=== PATIENT | female | born 1985 | race Caucasian/White ===

== ENCOUNTER 2017-06-18 21:12 | Emergency (ER) | payer SELFPAY ==
[~2017-06-18] VITALS: Ht 157.5 cm; Wt 57.6 kg
[~2017-06-18 21:12] MED LIST: CELEXA20 MG PO; NORCO 10MG-325MG1 EA PO
--- OUTSIDE RECORDS SUMMARY | 2017-06-18 21:14 | XMS REPORT ---
Author Author [facility] Address Unknown Phone Unavailable Care Team Providers Care Eyelet Riveter Name Role Phone JENN MCKEON Unavailable Unavailable Problems This patient has no known problems. Allergies, Adverse Reactions, Alerts This patient has no known allergies or adverse reactions. Medications This patient has no known medications. Encounters Start Date/Time End Date/Time Encounter Type Admission Type Attending [facility] Care Department Encounter ID 2017-08-17 00:00:00 2017-08-17 00:00:00 Outpatient [facility] [id number] 2017-07-19 00:00:00 2017-07-19 00:00:00 Outpatient [facility] [id number] 2017-07-19 00:00:00 2017-07-19 00:00:00 Outpatient [facility] [id number] 2017-07-15 00:00:00 2017-07-15 00:00:00 Outpatient [facility] [id number] 2017-07-13 00:00:00 2017-07-13 00:00:00 Outpatient [facility] [id number] 2017-07-13 00:00:00 2017-07-13 00:00:00 Outpatient [facility] [id number] 2017-07-08 00:00:00 2017-07-08 00:00:00 Outpatient [facility] [id number] 2017-07-04 00:00:00 2017-07-04 00:00:00 Outpatient [facility] [id number] 2017-06-24 00:00:00 2017-06-24 00:00:00 Outpatient [facility] [id number] 2017-06-24 00:00:00 2017-06-24 00:00:00 Outpatient [facility] [id number] 2017-06-16 00:00:00 2017-06-16 00:00:00 Outpatient [facility] [id number] 2017-06-15 00:00:00 2017-06-15 00:00:00 Outpatient [facility] [id number] 2017-06-08 00:00:00 2017-06-08 00:00:00 Outpatient [facility] [id number] 2017-06-02 00:00:00 2017-06-02 00:00:00 Outpatient [facility] [id number] 2017-05-25 10:00:29 2017-05-25 10:00:29 Outpatient [facility] [id number] 2017-05-25 00:00:00 2017-05-25 00:00:00 Outpatient [facility] [id number] 2017-05-25 00:00:00 2017-05-25 00:00:00 Outpatient [facility] [id number] 2017-05-24 00:00:00 2017-05-24 00:00:00 Outpatient [facility] [id number] 2017-05-18 00:00:00 2017-05-18 00:00:00 Outpatient [facility] [id number] 2017-05-17 10:58:45 2017-05-17 10:58:45 Outpatient [facility] [id number] 2017-05-17 08:19:46 2017-05-17 08:19:46 Outpatient [facility] [id number] 2017-05-11 00:00:00 2017-05-11 00:00:00 Outpatient [facility] [id number] 2017-05-05 12:11:36 2017-05-05 12:11:36 Outpatient [facility] [id number] 2017-05-05 10:30:09 2017-05-05 10:30:09 Outpatient [facility] [id number] 2017-04-25 09:44:48 2017-04-25 09:44:48 Outpatient [facility] [id number] 2017-04-25 00:00:00 2017-04-25 00:00:00 Outpatient [facility] [id number] 2017-04-22 00:00:00 2017-04-22 00:00:00 Outpatient [facility] [id number] 2017-04-19 09:44:58 2017-04-19 09:44:58 Emergency [facility] [id number] 2017-04-19 07:49:09 2017-04-19 07:49:09 Outpatient [facility] [id number] 2017-04-19 00:00:00 2017-04-19 00:00:00 Outpatient [facility] [id number] 2017-04-18 15:00:50 2017-04-18 15:00:50 Outpatient [facility] [id number] 2017-04-18 00:00:00 2017-04-18 00:00:00 Outpatient [facility] [id number] 2017-04-15 15:48:30 2017-04-15 15:48:30 Outpatient [facility] [id number] 2017-04-14 09:40:58 2017-04-14 09:40:58 Outpatient [facility] [id number] 2017-04-06 00:00:00 2017-04-06 00:00:00 Outpatient [facility] [id number] 2017-03-25 09:34:34 2017-03-25 09:34:34 Outpatient [facility] [id number] 2017-03-21 19:50:55 2017-03-21 19:50:55 Emergency [facility] [id number] 2017-03-21 19:31:52 2017-03-21 19:31:52 Emergency [facility] [id number] 2017-03-21 17:41:44 2017-03-21 17:41:44 Emergency [facility] [id number] 2017-03-09 09:29:04 2017-03-09 09:29:04 Outpatient [facility] [id number] 2017-03-03 09:41:43 2017-03-03 09:41:43 Emergency [facility] [id number] 2017-03-03 08:41:00 2017-03-03 08:41:00 Emergency [facility] [facility] [id number] 2017-02-14 10:56:29 2017-02-14 10:56:29 Outpatient [facility] [id number] 2017-02-03 15:46:29 2017-02-03 15:46:29 Outpatient [facility] [id number] 2017-02-03 14:28:55 2017-02-03 14:28:55 Outpatient [facility] [id number] 2017-02-01 00:00:00 2017-02-01 00:00:00 Outpatient [facility] [id number] 2017-01-31 00:00:00 2017-01-31 00:00:00 Outpatient [facility] [id number] 2017-01-20 08:35:05 2017-01-20 08:35:05 Outpatient [facility] [id number] 2016-12-31 10:40:05 2016-12-31 10:40:05 Outpatient [facility] [id number] 2016-12-27 10:22:29 2016-12-27 10:22:29 Outpatient [facility] [id number] 2016-12-27 00:00:00 2016-12-27 00:00:00 Outpatient [facility] [id number] 2016-12-13 00:00:00 2016-12-13 00:00:00 Outpatient [facility] [id number] 2016-12-06 11:56:04 2016-12-06 11:56:04 Outpatient [facility] [id number] 2016-12-06 11:39:08 2016-12-06 11:39:08 Outpatient [facility] [id number] 2016-11-25 00:00:00 2016-11-25 00:00:00 Outpatient [facility] [id number] 2016-11-22 13:03:39 2016-11-22 13:03:39 Outpatient [facility] [id number] 2016-11-17 13:51:48 2016-11-17 13:51:48 Outpatient [facility] [id number] 2016-11-17 13:01:42 2016-11-17 13:01:42 Outpatient [facility] [id number] 2016-11-16 08:03:59 2016-11-16 08:03:59 Outpatient [facility] [id number] 2016-11-15 10:20:10 2016-11-15 10:20:10 Outpatient [facility] [id number] 2016-11-03 00:00:00 2016-11-03 00:00:00 Outpatient [facility] [id number] 2016-11-02 18:55:37 2016-11-02 18:55:37 Emergency [facility] [id number] 2016-09-17 19:08:40 2016-09-17 19:08:40 Outpatient [facility] [id number] 2016-09-16 10:39:26 2016-09-16 10:39:26 Outpatient [facility] [id number] 2016-09-08 00:00:00 2016-09-08 00:00:00 Outpatient [facility] [id number] 2016-08-31 00:00:00 2016-08-31 00:00:00 Outpatient [facility] [id number] 2016-08-20 00:00:00 2016-08-20 00:00:00 Outpatient [facility] [id number] 2016-08-13 10:55:00 2016-08-13 10:55:00 Outpatient [facility] [id number] 2016-08-13 09:07:42 2016-08-13 09:07:42 Outpatient [facility] [id number] 2016-07-29 12:16:51 2016-07-29 12:16:51 Outpatient [facility] [id number] 2016-07-29 11:08:31 2016-07-29 11:08:31 Outpatient [facility] [id number] 2016-07-29 00:00:00 2016-07-29 00:00:00 Outpatient [facility] [id number] 2016-07-29 00:00:00 2016-07-29 00:00:00 Outpatient [facility] [id number] 2016-07-22 12:52:01 2016-07-22 12:52:01 Outpatient [facility] [id number] Results Test Description Test Time Test Comments Text Results Atomic Results Result Comments CT BRAIN WO [place] [address] Patient Name: MANDY MAYEN MR #: [id number] : 1985 Age/Sex: 31/F Req #: [id number] Adm Physician: Ordered by: JENN MCKEON MD Report #: [id number] Location: ER Room/Bed: Procedure: [id number] CT/CT BRAIN WO Exam Date: Exam Time: REPORT STATUS : Signed Examination: CT BRAIN WITHOUT CONTRAST History:Seizures. Comparison studies:None Technique: Axial images were obtained from the skull base to the vertex. Coronal and sagittal images reconstructed from the axial data. Intravenous contrast: None Findings: Scalp: No abnormalities. Bones: No fractures, blastic or lytic lesions. Brain sulci : Appropriate for age. Ventricles: Normal in size and configuration. No hydrocephalus. Extra-axial space: No abnormalities. Parenchyma: No abnormal densities. No masses, hemorrhage, acute or chronic vascular insults. Sellar/suprasellar region: No abnormalities. Craniocervical junction: Patent foramen magnum. No Chiari one malformation. Incidental findings: None. Impression: No intracranial abnormalities. Signed by: Dr. Linsey Jane M.D. on 01/10/2017 11:08 PM Dictated By: LINSEY MCNEILL MD 07 Transcribed By: AGNIESZKA on 01/10/172307 COPY TO: JENN MCKEON MD CHEST SINGLE (PORTABLE) [place] [address] Patient Name: MANDY MAYEN MR #: [id number] : 1985 Age/Sex: 31/F Req #: [id number] Adm Physician: Ordered by: JENN MCKEON MD Report #: [id number] Location: ER Room/Bed: Procedure: [id number] DX/CHEST SINGLE (PORTABLE) Exam Date: Exam Time: REPORT STATUS: Signed EXAMINATION: CHEST SINGLE ( PORTABLE) INDICATION: Seizures COMPARISON: None FINDINGS: TUBES and LINES: None. LUNGS: Lungs are not well inflated. Lungs are clear. There is no evidence of pneumonia or pulmonary edema. PLEURA: No pleural effusion or pneumothorax. HEART AND MEDIASTINUM: The cardiomediastinal silhouette is unremarkable. BONES AND SOFT TISSUES: No acute osseous lesion. Soft tissues are unremarkable. UPPER ABDOMEN: No free air under the diaphragm. IMPRESSION: No acute thoracic abnormality. Signed by: Dr. Martir Tolentino M.D. on 2016 11:30 PM Dictated By: MARTIR JOHNSON MD 29 Transcribed By: AGNIESZKA on 01/10/172329 COPY TO: JENN MCKEON MD
[2017-06-18 21:46] LABS: BASOPHILS % 0.5 % (0.0-1.0); EOSINOPHILS # (AUTO) 0.2 (0.0-0.4); EOSINOPHILS % 2.6 % (0.0-6.0); HEMATOCRIT 38.7 % (34.2-44.1); HEMOGLOBIN 12.9 g/dL (12.0-16.0); LYMPHOCYTES # (AUTO) 2.8 (1.0-3.2); MEAN CORPUSCULAR HEMOGLOBIN 30.8 pg (28-32); MEAN CORPUSCULAR HGB CONC 33.3 g/dL (31-35); MEAN CORPUSCULAR VOLUME 92.4 fL (81-99); MONOCYTES # (AUTO) 0.3 (0.2-0.8); MONOCYTES % 4.4 % (4.4-11.3); NEUTROPHILS % 54.4 % (38.7-80.0); PLATELET COUNT 304 x10e3/uL (140-360); RED BLOOD COUNT 4.19 x10e6/uL (3.6-5.1)
[2017-06-18] MEDS ORDERED: IBUPROFEN 600 MG TAB PO STA (22:03)
[2017-06-18 22:10] LABS: ALANINE AMINOTRANSFERASE 27 IU/L (0-55); ALBUMIN 4.1 g/dL (3.5-5.0); ALKALINE PHOSPHATASE 91 IU/L (40-150); ANION GAP 15.8 mmol/L (8-16); BLOOD UREA NITROGEN 6 mg/dL (7-26); BUN/CREATININE RATIO 8 (6-25); CALCIUM 9.2 mg/dL (8.4-10.2); CARBON DIOXIDE 22 mmol/L (22-29); CHLORIDE 109 mmol/L (98-107); CREATINE KINASE 119 IU/L (29-168); CREATININE, SERUM 0.72 mg/dL (0.57-1.11); EST GLOMERULAR FILTRATION RATE > 60 ML/MIN (60-); GLUCOSE 84 mg/dL (74-118); POTASSIUM 3.8 mmol/L (3.5-5.1); SODIUM 143 mmol/L (136-145)
--- NOTE | 2017-06-18 22:16 | Diagnostic Imaging Report ---
EXAM: CHEST SINGLE (PORTABLE), AP 1 view INDICATION: Status post seizure COMPARISON: AP view of the chest January 10, 2017 FINDINGS: LINES/TUBES: None LUNGS: No consolidations or edema. PLEURA: No effusions or pneumothorax. HEART AND MEDIASTINUM: Normal size and contour. BONES AND SOFT TISSUES: No acute findings. IMPRESSION: No acute thoracic abnormality. Signed by: Dr. Perlita Yun M.D. on 06/18/2017 10:12 PM
[2017-06-18 23:31] VITALS: BP 110/64
== END 2017-06-18 23:36 | disposition home or self-care (01) ==
LOC: ER 21:12
DX: G40.309 Generalized idiopathic epilepsy and epileptic syndromes, not intractable, without status epilepticus (principal); F10.120 Alcohol abuse with intoxication, uncomplicated
CPT/HCPCS: 36415; 71045; 80053; 80320; 82550; 82553; 84484; 85025; 93005; 99283

== ENCOUNTER 2019-10-27 09:21 | Emergency (ER) | payer SELFPAY ==
[~2019-10-27] VITALS: Ht 157.5 cm; Wt 57.6 kg
[2019-10-27] MEDS ORDERED: SODIUM CHLORIDE 0.9% 1000ML 1,000 ML IV STA (09:23)
[2019-10-27] MEDS ORDERED: BACTRIM DS TAB1 EACH PO (09:34)
[2019-10-27] MEDS ORDERED: PREDNISONE10 MG PO (09:34)
[2019-10-27] MEDS ORDERED: PROMETHAZINE HC25 M1 PO (09:34)
[2019-10-27] MEDS ORDERED: PROZAC20 MG PO (09:34)
[2019-10-27] MEDS ORDERED: LIBRAX CAPSULE1 EACH PO (09:34)
[2019-10-27] MEDS ORDERED: GABAPENTIN300 MG PO (09:34)
[2019-10-27] MEDS ORDERED: TRAZODONE HCL50 MG PO (09:34)
[2019-10-27] MEDS ORDERED: LAMICTAL100 MG PO (09:34)
--- OUTSIDE RECORDS SUMMARY | 2019-10-27 09:37 | XMS REPORT | Clinical Summary ---
Author Author [facility] ict Organization [facility] ict Address Unknown Phone Unavailable Care Team Providers Care Media Clerk Name Role Phone Rahul Yang MD PCP Allergies Comments Active Allergy Reactions Severity Noted Date Penicillin Rash 10/26/2015 Medications End Date Status Medication Sig Dispensed Refills Start Date Active thiamine, B-1, 50 mg Take 2 240 tablet 1 04/18 tabletIndications: tablets by 8 Alcohol abuse mouth daily. Active pyridoxine, vitamin B6, Take 1 tablet 180 tablet 1 50 mg tabletIndications: by mouth 2 8 Alcohol abuse times daily. Active folic acid (FOLVITE) 1 mg Take 1 tablet 90 tablet 1 tabletIndications: by mouth 8 Alcohol abuse daily. Active Take by 90 tablet 3 Ggiwzqmy-Wz-Bvd-Fe-FA mouth. 9 () TabIndications: Seizure disorder during in first trimester Active lamoTRIgine (LAMICTAL) Take 1 tablet 180 tablet 3 0 100 mg tabletIndications: by mouth 2 9 Seizures times daily. Active folic acid (FOLVITE) 1 mg Take 1 tablet 90 tablet 3 tabletIndications: by mouth 9 Seizures daily. Active topiramate (TOPAMAX) 25 Take 1 tablet 12 tablet 0 mg tabletIndications: by mouth at 9 Depressive disorder, bedtime Alcohol use disorder, nightly. severe, dependence Active gabapentin (NEURONTIN) Take 1 tablet 90 tablet 2 1 600 mg tabletIndications: by mouth 3 9 Anxiety times daily. Active chlordiazePOXIDE Take 1-2 30 capsule 0 (LIBRIUM) 25 mg tablets every 0 capsuleIndications: 4-6hrs for Alcohol use disorder, symptoms of severe, dependence withdrawal including anxiety, sweating, tremors, restlessness, nausea/vomiti ng. 02/26/2019 Discontinued (Reorder) gabapentin (NEURONTIN) Take 1 tablet 90 tablet 2 0 600 mg tabletIndications: by mouth 3 8 Alcohol use disorder times daily. 02/26/2019 Discontinued (Reorder) hydrOXYzine (ATARAX) 25 Take 1 tablet 60 tablet 2 mg tabletIndications: by mouth 8 Anxiety every 6 hours as needed for Anxiety. 03/28/2019 hydrOXYzine (ATARAX) 25 Take 1 tablet 60 tablet 0 mg tabletIndications: by mouth 9 Anxiety every 6 hours as needed for Anxiety. 09/06/2019 Discontinued (Reorder) chlordiazePOXIDE Take 1-2 30 capsule 0 (LIBRIUM) 25 mg tablets every 0 capsuleIndications: 4-6hrs for Alcohol use disorder, symptoms of severe, dependence withdrawal including anxiety, sweating, tremors, restlessness, nausea/vomiti ng. Active Problems Problem Noted Date Abnormal uterine bleeding (AUB) 03/09/2018 Overview: 03/09/2018 Homelessness 11/28/2017 Seizure 03/09/2017 Opioid use disorder, moderate, in sustained remission 08/16/2016 Tobacco use disorder 08/07/2014 Anxiety disorder 04/23/2014 Alcohol use disorder, severe, dependenc e Alcohol abuse Suicidal ideation Alcoholic intoxication without complica tion Depressive disorder Substance or medication-induced depress jaime disorder Encounters Care Team Description Date Type Specialty Jovan Martins MD Nasal pain (Primary Dx); Dyspnea, unspecified type; Seizure; Suicidal ideation; Alcohol use disorder, severe, dependence 09/05/2019 Emergency Emergency Medicine - 09/06/2019 Joseph Caldera III, MD Medications 02/26/2019 Refill Family Practice after 10/26/2018 Immunizations Name Administration Dates Next Due Influenza Vaccine, 02/03/2017 Seasonal, Injectable Influenza, 12/12/2017 (Deferred: Patie nt Refused) Vaccine<FLUCELVAX>(Multi- Dose) Tdap Tetanus, diphtheria, 02/03/2017 acellular pertussis Vaccine Family History Medical History Relation Name Comments Arthritis Father Heart Father Hypertension Father Seizures Father Arthritis Maternal Grandfather Arthritis Maternal Grandmother Diabetes Maternal Grandmother Glaucoma Maternal Grandmother Arthritis Mother Asthma Mother Diabetes Mother Heart Mother Hypertension Mother Psychiatry Mother Stroke Paternal Aunt Arthritis Paternal Grandfather Arthritis Paternal Grandmother Psychiatry Paternal Grandmother Asthma Sister Psychiatry Sister Relation Name Status Comments Father Alive Maternal Grandfather Maternal Grandmother Glaucoma according to pt Mother Alive Paternal Aunt Paternal Grandfather Paternal Grandmother Sister Sister Social History Date Tobacco Use Types Packs/Day Years Used Current Every Day Smoker Cigarettes 0.25 Smokeless Tobacco: Never Used Tobacco Cessation: Ready to Quit: No; Co unseling Given: Yes Comments: patient states that she is cutting down now that she is Drinks/Week oz/Week Comments Alcohol Use 0 Standard drinks or equivalent 0.0 About 2 pints of VODKA a day. Not Currently Food Insecurity Answer Date Recorded Within the past 12 months, you worried that your Never kayley e 05/31/2018 food would run out before you got money to buy more. Within the past 12 months, the food you bought Never true 05/31/2018 just didn't last and you didn't have mo juan to get more. Sex Assigned at Date Recorded Not on file Industry Job Start Date Occupation Not on file Not on file Not on file Travel End Travel History Travel Start No recent travel history available. Last Filed Vital Signs Reading Time Taken Comments Vital Sign 137/96 09/06/2019 8:48 PM CDT Blood Pressure 87 09/06/2019 8:48 PM CDT Pulse 37.3 C (99.1 F) 09/06/2019 8:48 PM CDT Temperature 16 09/06/2019 8:48 PM CDT Respiratory Rate 96% 09/06/2019 8:48 PM CDT Oxygen Saturation - - Inhaled Oxygen Concentration - - Weight - - Height - - Body Mass Index Plan of Treatment Health Maintenance Due Date Last Done Comments Cervical Cancer Scrn (3 07/17/2019 07/16/2016, Yrs) 05/16/2015 Goals Goal Patient Associated Recent Progress Patient-Stat Aut hor Goal Type Problems ed? Eat Healthy Lifestyle No Anayeli Almanza Quit drinking alcohol Lifestyle No Elaina Sanchez NP Quit smoking / using tobacco Lifestyle Elaina Walker NP Get back to normal activities Lifestyle No Daniel, (work or school) Elaina Callejas NP Medication Adherence Self No Daniel management Elaina Callejas NP Procedures Comments Procedure Name Priority Date/Time Associated Diag nosis GLUCOSE POC Routine 09/06/2019 5:16 PM CDT XRAY CHEST 1 VIEW STAT 09/06/2019 Dyspnea, uns pecified type 2:35 PM CDT CORONAVIRUS, COVID-19, STAT 09/06/2019 GIULIANA 8:26 AM CDT IP CONSULT WITH INSIGHT Routine 09/06/2019 5:32 AM CDT CONSULT CLINICAL CASE STAT 09/06/2019 MANAGEMENT (RN/SW) 5:32 AM CDT BMP POC Routine 09/06/2019 1:51 AM CDT BMP POC Routine 09/06/2019 1:[address] MAXILLOFACIAL W/O STAT 09/06/2019 Nasal mary n CONTRAST 1:[address] HEAD W/O CONTRAST STAT 09/06/2019 Seizure 1:06 AM CDT CBC STAT 09/05/2019 11:53 PM CDT LAMOTRIGINE-LAMICTAL STAT 09/05/2019 11:53 PM CDT SALICYLATE STAT 09/05/2019 11:53 PM CDT ACETAMINOPHEN STAT 09/05/2019 11:53 PM CDT ALCOHOL, MEDICAL USE ONLY STAT 09/05/2019 11:53 PM CDT LIPASE STAT 09/05/2019 11:53 PM CDT COMPREHENSIVE METABOLIC STAT 09/05/2019 PANEL 11:53 PM CDT CBC/DIFF STAT 09/05/2019 11:53 PM CDT URINE DRUG SCREEN STAT 09/05/2019 11:43 PM CDT TEST STAT 09/05/2019 11:43 PM CDT after 10/26/2018 Results * POCT GLUCOSE POC docked device (09/06/2019 5:16 PM CDT) Glucose POC 73 (L) 74 - 106 mg/dL [facility] Specimen Blood Performing Organization Address City/[facility] Ph one Number [facility] [address] [place] [address] * XRAY CHEST 1 VIEW (09/06/2019 2:35 PM CDT) Specimen Impressions Performed At IMPRESSION: SMS No acute thoracic abnormality. If the report is "FINALIZED" it indicat es that the attending/staff radiologist has reviewed the images and agrees with the resident's interpretation. Dictated By: Tyler Lyles MD, 09/06/2019 3:1 9 PM I have reviewed the study and agree wit h the findings in this report. Signed By: Camilla Johansen MD, 09/06/2019 3:33 PM Narrative Performed At EXAMINATION: XRAY CHEST 1 VIEW, AP SMS INDICATION: dyspnea COMPARISON: Chest radiograph on 09/30/19 19. FINDINGS: Single AP view with portable technique limits evaluation. TUBES/LINES: None. LUNGS: No consolidations or edema. PLEURA: No effusions or pneumothorax. HEART/MEDIASTINUM: Normal for technique . MUSCULOSKELETAL: No acute findings. UPPER ABDOMEN: Normal. Procedure Note Interface, Rad/Mammog In - 09/06/2019 3:38 PM CDT EXAMINATION: XRAY CHEST 1 VIEW, AP INDICATION: dyspnea COMPARISON: Chest radiograph on 09/29/2018. FINDINGS: Single AP view with portable technique limits evaluation. TUBES/LINES: None. LUNGS: No consolidations or edema. PLEURA: No effusions or pneumothorax. HEART/MEDIASTINUM: Normal for technique. MUSCULOSKELETAL: No acute findings. UPPER ABDOMEN: Normal. IMPRESSION IMPRESSION: No acute thoracic abnormality. If the report is "FINALIZED" it indicates that the attending/staff radiologist has reviewed the images and agrees with the resident's interpretation. Dictated By: Tyler Lyles MD, 09/06/2019 3:19 PM I have reviewed the study and agree with the findings in this report. Signed By: Camilla Johansen MD, 09/06/2019 3:33 PM Performing Organization Address City/[facility] Ph one Number SMS * Coronavirus, CoVID-19, GIULIANA (09/06/2019 8:26 AM CDT) COVID-19 Not DetectedComment: Not Detected [facility] (SARS-COV-2) INTERPRETATION: No detectable LABORAT ORY levels of SARS-CoV-2 Coronavirus (COVID-19) were present in this patient's sample by this test. A not detected result does not exclude the possibility of active infection with this virus due to other factors that may affect the results such as a poorly collected sample, viral titers below the limit of detection of the assay, and the infrequent possibility of inhibitors in the sample. This result should be interpreted in conjunction with clinical, radiographic, and other laboratory findings and should not be used as the sole indicator of active infection with SARS-CoV-2 Coronavirus (COVID-19). Specimen Other (Specify in Comments) - Nasopharynx Narrative Performed At COMMENT: This [employer] Xpert Xpress SARS -CoV-2 real-time PCR test was developed, [facility] and its performance characteristics det ermined by the [facility] molecular diagnostic Laboratory and is acceptable for patient testing. It has been approved for patient testing by [facility] under the Emergency Use Authorization pathway. This laboratory is certified under federal CLIA regulations to perform this type of hig h complexity testing. Performing Organization Address [facility] one Number [facility] [address] [place] [address] * POCT BMP POC docked device (09/06/2019 1:51 AM CDT) Only the most recent of 2 results within the time period is included. Pathologist [facility] Sodium POC 144 136 - 145 mmol/L [facility] Potassium POC 3.5 3.5 - 5.1 mmol/L [facility] Chloride POC 106 98 - 107 mmol/L [facility] TCO2 POC 27Comment: --- 21 - 32 mmol/L [facility] Urea Nitrogen <3 (L) 7 - 18 mg/dL [facility] Glucose POC 91 74 - 106 mg/dL [facility] Hemoglobin POC 14.3 12 - 16 g/dL [facility] Hematocrit POC 42.0 37.0 - 47.0 % [facility] Specimen Blood, venous Performing Organization Address [facility] Ph one Number [facility] [address] [place] [address] LABORATORY * CT MAXILLOFACIAL W/O CONTRAST (09/06/2019 1:06 AM CDT) Specimen Impressions Performed At IMPRESSION: [facility] Head CT: No intracranial abnormalities. Maxillofacial CT: 1. Age indeterminate, minimally displ aced right maxillary frontal process fracture. 2. Otherwise, no acute osseous abnorm alities. Dictated By: Shraddha Dunn MD, 09/06/19 1:34 AM I have reviewed the study and agree wit h the findings in this report. Signed By: Orlando Jane MD, 09/06/2019 1:51 AM Narrative Performed At Exams: Head and Maxillofacial CTs without contrast S MS History: Facial trauma, fx suspected Na andrew pain (accession [id number]), Seizure (accession [id number]) Comparison studies: Maxillofacial CTs dated 01/01/2018 and 05/05/[address] 09/24/2017 Technique: Axial scans were obtained though the he ad and face. Coronal and sagittal reconstructions ob tained from the axial data. Dose modulation, iterative reconstructi on, and/or weight based adjustment of the mA/kV was utilized to reduce the radiation dose to as low as reasonably achievable. IV Contrast: None Complications: None Radiation Dose: Total DLP: 1662 mGy*cm FINDINGS: Head CT: Scalp/Skull: No abnormalities. Brain sulci: Appropriate for patient's age. Ventricles: Normal in size and configur ation. No hydrocephalus. Extra-axial: No masses or fluid collections. Parenchyma: No abnormal densities. No masses, acute hemorrhage, acute or c hronic cortical insults. Dural sinuses: No abnormal densities. Sellar/Suprasellar region: Intact. Skull base and craniocervical junction: Intact. Facial CT: Soft tissues: No abnormalities. Bones: Minimally displaced right maxillary fro ntal process fracture is age indeterminate. Otherwise, no acute fracture or destruc tive osseous lesion is seen. Orbits: No abnormalities. Paranasal sinuses: Minimal bilateral maxillary sinus and o lfactory/sphenoethmoidal recess mucosal thickening. Incidental findings: Multiple scattered dental caries and mi ssing teeth. The right parotid gland is atrophic. Procedure Note Interface, Rad/Mammog In - 09/06/2019 1:56 AM CDT Exams: Head and Maxillofacial CTs without contrast History: Facial trauma, fx suspected Nasal pain (accession [id number]), Seizure (accession [id number]) Comparison studies: Maxillofacial CTs dated 01/01/2018 and 05/05/[address] 09/24/2017 Technique: Axial scans were obtained though the head and face. Coronal and sagittal reconstructions obtained from the axial data. Dose modulation, iterative reconstruction, and/or weight based adjustment of the mA/kV was utilized to reduce the radiation dose to as low as reasonably achievable. IV Contrast: None Complications: None Radiation Dose: Total DLP: 1662 mGy*cm FINDINGS: Head CT: Scalp/Skull: No abnormalities. Brain sulci: Appropriate for patient's age. Ventricles: Normal in size and configuration. No hydrocephalus. Extra-axial: No masses or fluid collections. Parenchyma: No abnormal densities. No masses, acute hemorrhage, acute or chronic cortical insults. Dural sinuses: No abnormal densities. Sellar/Suprasellar region: Intact. Skull base and craniocervical junction: Intact. Facial CT: Soft tissues: No abnormalities. Bones: Minimally displaced right maxillary frontal process fracture is age indeterminate. Otherwise, no acute fracture or destructive osseous lesion is seen. Orbits: No abnormalities. Paranasal sinuses: Minimal bilateral maxillary sinus and olfactory/sphenoethmoidal recess mucosal thickening. Incidental findings: Multiple scattered dental caries and missing teeth. The right parotid gland is atrophic. IMPRESSION IMPRESSION: Head CT: No intracranial abnormalities. Maxillofacial CT: 1. Age indeterminate, minimally displac ed right maxillary frontal process fracture. 2. Otherwise, no acute osseous abnormal ities. Dictated By: Shraddha Dunn MD, 09/06/2019 1:34 AM I have reviewed the study and agree with the findings in this report. Signed By: Orlando Jane MD, 09/06/2019 1:51 AM Performing Organization Address City/State/Zipcode Ph one Number SMS * CT HEAD W/O CONTRAST (09/06/2019 1:06 AM CDT) Specimen Impressions Performed At IMPRESSION: [facility] Head CT: No intracranial abnormalities. Maxillofacial CT: 1. Age indeterminate, minimally displ aced right maxillary frontal process fracture. 2. Otherwise, no acute osseous abnorm alities. Dictated By: Shraddha Dunn MD, 09/06/19 1:34 AM I have reviewed the study and agree wit h the findings in this report. Signed By: Orlando Jane MD, 09/06/2019 1:51 AM Narrative Performed At Exams: Head and Maxillofacial CTs without contrast S MS History: Facial trauma, fx suspected Na andrew pain (accession [id number]), Seizure (accession [id number]) Comparison studies: Maxillofacial CTs dated 01/01/2018 and 05/05/[address] 09/24/2017 Technique: Axial scans were obtained though the he ad and face. Coronal and sagittal reconstructions ob tained from the axial data. Dose modulation, iterative reconstructi on, and/or weight based adjustment of the mA/kV was utilized to reduce the radiation dose to as low as reasonably achievable. IV Contrast: None Complications: None Radiation Dose: Total DLP: 1662 mGy*cm FINDINGS: Head CT: Scalp/Skull: No abnormalities. Brain sulci: Appropriate for patient's age. Ventricles: Normal in size and configur ation. No hydrocephalus. Extra-axial: No masses or fluid collections. Parenchyma: No abnormal densities. No masses, acute hemorrhage, acute or c hronic cortical insults. Dural sinuses: No abnormal densities. Sellar/Suprasellar region: Intact. Skull base and craniocervical junction: Intact. Facial CT: Soft tissues: No abnormalities. Bones: Minimally displaced right maxillary fro ntal process fracture is age indeterminate. Otherwise, no acute fracture or destruc tive osseous lesion is seen. Orbits: No abnormalities. Paranasal sinuses: Minimal bilateral maxillary sinus and o lfactory/sphenoethmoidal recess mucosal thickening. Incidental findings: Multiple scattered dental caries and mi ssing teeth. The right parotid gland is atrophic. Procedure Note Interface, Rad/Mammog In - 09/06/2019 1:56 AM CDT Exams: Head and Maxillofacial CTs without contrast History: Facial trauma, fx suspected Nasal pain (accession [id number]), Seizure (accession [id number]) Comparison studies: Maxillofacial CTs dated 01/01/2018 and 05/05/[address] 09/24/2017 Technique: Axial scans were obtained though the head and face. Coronal and sagittal reconstructions obtained from the axial data. Dose modulation, iterative reconstruction, and/or weight based adjustment of the mA/kV was utilized to reduce the radiation dose to as low as reasonably achievable. IV Contrast: None Complications: None Radiation Dose: Total DLP: 1662 mGy*cm FINDINGS: Head CT: Scalp/Skull: No abnormalities. Brain sulci: Appropriate for patient's age. Ventricles: Normal in size and configuration. No hydrocephalus. Extra-axial: No masses or fluid collections. Parenchyma: No abnormal densities. No masses, acute hemorrhage, acute or chronic cortical insults. Dural sinuses: No abnormal densities. Sellar/Suprasellar region: Intact. Skull base and craniocervical junction: Intact. Facial CT: Soft tissues: No abnormalities. Bones: Minimally displaced right maxillary frontal process fracture is age indeterminate. Otherwise, no acute fracture or destructive osseous lesion is seen. Orbits: No abnormalities. Paranasal sinuses: Minimal bilateral maxillary sinus and olfactory/sphenoethmoidal recess mucosal thickening. Incidental findings: Multiple scattered dental caries and missing teeth. The right parotid gland is atrophic. IMPRESSION IMPRESSION: Head CT: No intracranial abnormalities. Maxillofacial CT: 1. Age indeterminate, minimally displac ed right maxillary frontal process fracture. 2. Otherwise, no acute osseous abnormal ities. Dictated By: Shraddha Dunn MD, 09/06/2019 1:34 AM I have reviewed the study and agree with the findings in this report. Signed By: Orlando Jane MD, 09/06/2019 1:51 AM Performing Organization Address City/State/Zipcode Ph one Number SMS * CBC/Diff (09/05/2019 11:53 PM CDT) WBC 5.7 4.5 - 11.0 K/uL [facility] RBC 4.60 4.20 - 5.40 M/uL [facility] Hemoglobin 14.4 12.0 - 16.0 g/dL [facility] Hematocrit 43.9 37.0 - 47.0 % [facility] MCV 95.4 (H) 82.0 - 92.0 fL [facility] MCH 31.3 27.0 - 32.0 pg [facility] MCHC 32.8 32.0 - 36.0 g/dL [facility] RDW 50.2 (H) 36.4 - 46.3 fL [facility] Platelet 287 150 - 400 K/uL [facility] Mean Platelet 9.2 (L) 9.4 - 12.4 fL [facility] Volume [facility] Percent NRBC 0.0 % [facility] Neutrophil 42.5 34.0 - 70.0 % [facility] Lymphs 48.5 20.0 - 50.0 % [facility] Monocytes 6.0 5.0 - 12.0 % [facility] Eos 1.4 0.7 - 5.0 % [facility] Basos 1.2 0.1 - 1.2 % [facility] Immature 0.4 0.0 - 0.5 % [facility] Granulocytes [facility] Neutrophils 2.43 1.56 - 6.13 K/uL [facility] (Absolute) [facility] Lymphs 2.77 1.18 - 3.74 K/uL [facility] (Absolute) [facility] Monocytes(Absol 0.34 0.24 - 0.36 K/uL [facility] [place] Eos (Absolute) 0.08 0.04 - 0.36 K/uL [facility] Baso (Absolute) 0.07 0.01 - 0.08 K/uL [facility] Immature Grans 0.02 0.00 - 0.03 K/uL [facility] (Abs) [facility] Absolute NRBC 0.00 K/uL [facility] Specimen Blood Performing Organization Address [facility] one [facility] [address] [place] [address] * Comprehensive Metab Pnl(Excludes DBIL) (09/05/2019 11:53 PM CDT) Sodium 141 136 - 145 mmol/L [facility] Potassium 5.5 (H) 3.5 - 5.1 mmol/L [facility] Chloride 106 98 - 107 mmol/L [facility] CO2 25 21 - 31 mmol/L [facility] Glucose 88 70 - 110 mg/dL [facility] Calcium 8.3 (L) 8.6 - 10.3 mg/dL [facility] Urea Nitrogen 5.0 (L) 7.0 - 25.0 mg/dL [facility] Creatinine 0.5 (L) 0.6 - 1.2 mg/dL [facility] Alkaline 112 (H) 34 - 104 U/L [facility] Phosphatase [facility] ALT 19 7 - 52 U/L [facility] AST 43 (H) 13 - 39 U/L [facility] Bilirubin, 0.3 0.2 - 1.2 mg/dL [facility] Total [facility] Total Protein 7.5 6.0 - 8.3 g/dL [facility] GFR, Estimated >90 >=90 mL/min/1.73 m2 [facility] Albumin 4.6 3.7 - 5.3 g/dL [facility] Anion Gap 10 5 - 16 mmol/L [facility] Specimen Blood Performing Organization Address [facility] one Number [facility] [address] [place] [address] * Lamotrigine (Lamictal), Serum (09/05/2019 11:53 PM CDT) Lamotrigine, 4.4 2.0 - 20.0 ug/mL [facility] Serum Comment: This test was developed and its performance characteristics determined by [facility]. It has not been cleared or approved by the Food and Drug Administration. Detection Limit = 1.0 Specimen Blood Narrative Performed At Performed at: [facility] [address] [place] [id number] Respiratory Scientist: Abner Osullivan MD, Phone : [phone] Performing Organization Address [facility] one Number [facility] [address] [place] [address] * Salicylate (09/05/2019 11:53 PM CDT) Salicylate <2.5 (L) 2.8 - 30 mg/dL [facility] Specimen Blood Performing Organization Address [facility] one Number [facility] [address] [place] [address] * Lipase (09/05/2019 11:53 PM CDT) Lipase 40 11 - 82 U/L [facility] Specimen Blood Performing Organization Address [facility] one Number [facility] [address] [place] [address] * Alcohol (09/05/2019 11:53 PM CDT) ALCOHOL, SERUM 0.35 (HH) <0.10 g/dL [facility] - RESULT ([facility]) [facility] Specimen Blood Performing Organization Address [facility] one Number [facility] [address] [facility] [place] [address] [phone] * Acetaminophen (09/05/2019 11:53 PM CDT) Acetaminophen <10.00 (L) 10.00 - 30.00 ug/mL [facility] Comment: [facility]ORY Please refer to acetaminophen nomogram. Specimen Blood Performing Organization Address [facility] [place] [facility] [address] [place] [address] * Urine Drug Screen (09/05/2019 11:43 PM CDT) Opiate, Ur Negative Negative [facility]: [facility] Calibrated Standard: Morphine Positive if urine level > or = 300 ng/dL Amphetamine Negative Negative [facility]: [facility] Calibrated Standard: D-Methamphetamine Positive if urine level > or = 1000 ng/mL Barbiturate Negative Negative [facility] Comment: [facility] Calibrated Standard: Secobarbital Positive if urine level is > or = 200 ng/mL Benzodiazepine Negative Negative [facility] Comment: [facility] Calibrated Standard: Lormethazepam Positive if urine level is > or = 200 ng/mL Cocaine Negative Negative [facility] Comment: [facility] Calibrated Standard: Benzoylecgonine Positive if urine level > or = 300 ng/dL PCP Negative Negative [facility] Comment: [facility] Calibrated Standard: Phencyclidine Positive if urine level > or = 25 ng/dL Cannabinoid Negative Negative [facility] Comment: [facility] Calibrated Standard: 11 nor-delta(9)-THC carboxylic acid Positive if urine level > or = 50 ng/mL Specimen Urine - Voided, urine Performing Organization Address [facility] one Number [facility] [address] [place] [address] * Test (09/05/2019 11:43 PM CDT) Negative Negative [facility] Specimen Urine Performing Organization Address [facility] one Number [facility] [address] [place] [address] after 10/26/2018 Insurance Type Payer Benefit Subscriber ID Effective Phone Address Plan / Dates Group [facility] SELF-PAY SELF-PAY xxxxxxxxx 2019- [phone] [address] [place] [address] Advance Directives Date Inactivated Comments Code Status Date Activated 10/29/2015 1:06 PM Full Code 10/25/2015 11:50 PM 08/09/2014 5:07 PM Full Code 08/07/2014 2:34 AM
--- OUTSIDE RECORDS SUMMARY | 2019-10-27 09:37 | XMS REPORT | Clinical Summary ---
Author Author [facility] Address Unknown Phone Unavailable Care Team Providers Care Display Carver Name Role Phone Asked, No Pcp PCP Unavailable Allergies Comments Active Allergy Reactions Severity Noted Date Penicillins 05/04/2018 Medications End Date Status Medication Sig Dispensed Refills Start Date Active lamoTRIgine (LaMICtal) Take 100 mg 0 100 MG tablet by mouth 2 (two) times a day. Active HEB56-ldxt Take 1 tablet 0 carb,mff-PI-fbh-dha 90 mg by mouth iron-1 mg -50 mg-300 mg daily. combo pack 11/27/2018 methylPREDNISolone follow 21 tablet 0 01 (MEDROL DOSEPAK) 4 mg package 9 tablet directions 12/22/2018 albuterol (PROAIR Inhale 1-2 1 Inhaler 0 11/23/19 1 HFA,PROVENTIL puffs every 6 9 HFA,VENTOLIN HFA) 90 (six) hours mcg/actuation inhaler as needed for wheezing for up to 30 days. 11/22/2018 aerosol holding chamber Inhale 1 each 1 each 0 (BREATHERITE MDI SPACER) once for 1 9 spacer dose. 11/29/2018 sulfamethoxazole-trimetho Take 1 tablet 14 tablet 0 prim (BACTRIM DS) 800-160 by mouth 2 9 mg per tablet (two) times a day for 7 days. smx-tmp DS (BACTRIM) 800-160 mg tabs (1tab q12 D10) Active Problems Problem Noted Date Spontaneous 05/09/2018 05/09/2018 Estimated Date of Delivery Comments Yes 12/15/2018 Encounters Care Team Description Date Type Specialty Enrique Bateman DO Upper respiratory tract infection, unspe cified type (Primary Dx); Wheezing on auscultation 11/22/2018 Emergency Emergency Medicine after 10/26/2018 Social History Date Tobacco Use Types Packs/Day Years Used Current Some Day Smoker Smokeless Tobacco: Never Used Drinks/Week oz/Week Comments Alcohol Use No Alcohol Habits Answer Date Recorded How often do you have a drink containing alcohol? Never 05/04/2018 How many drinks containing alcohol do you have on No t asked a typical day when you are drinking? How often do you have six or more drinks on one Not asked occasion? Estimated Date of Delivery Comments Yes 12/15/2018 Sex Assigned at Date Recorded Not on file Industry Job Start Date Occupation Not on file Not on file Not on file Travel End Travel History Travel Start No recent travel history available. Last Filed Vital Signs Reading Time Taken Comments Vital Sign 117/69 11/22/2018 12:01 PM CDT Blood Pressure 82 11/22/2018 12:01 PM CDT Pulse 36.9 C (98.4 F) 11/22/2018 12:01 PM CDT Temperature 18 11/22/2018 12:01 PM CDT Respiratory Rate 100% 11/22/2018 12:01 PM CDT Oxygen Saturation - - Inhaled Oxygen Concentration 56.7 kg (125 lb) 11/22/2018 12:04 PM CDT Weight 157.5 cm (5' 2") 11/22/2018 12:04 PM CDT Height 22.86 11/22/2018 12:04 PM CDT Body Mass Index Plan of Treatment Health Maintenance Due Date Last Done Comments CERVICAL CANCER SCREENING 10/16/2008 INFLUENZA VACCINE 12/06/2019 Procedures Comments Procedure Name Priority Date/Time Associated Diag nosis XR CHEST 2 VW STAT 11/22/2018 2:12 PM CDT GRAM STAIN STAT 11/22/2018 1:23 PM CDT URINE CULTURE STAT 11/22/2018 1:23 PM CDT STREP SCREEN CULTURE Routine 11/22/2018 12:56 PM CDT GROUP A STREP, RAPID Routine 11/22/2018 ANTIGEN 12:56 PM CDT URINALYSIS SCREEN AND STAT 11/22/2018 MICROSCOPY, WITH REFLEX 12:53 PM CDT TO CULTURE MANUAL DIFFERENTIAL STAT 11/22/2018 12:47 PM CDT ESTIMATED GFR STAT 11/22/2018 12:47 PM CDT COMPREHENSIVE METABOLIC STAT 11/22/2018 PANEL 12:47 PM CDT CBC WITH PLATELET AND STAT 11/22/2018 DIFFERENTIAL 12:47 PM CDT RESPIRATORY PATHOGEN Routine 11/22/2018 PANEL 12:43 PM CDT INFLUENZA ANTIGEN TEST, Routine 11/22/2018 REFLEX NEGATIVE TO RPP 12:43 PM CDT after 10/26/2018 Results * XR Chest 2 Vw (11/22/2018 2:12 PM CDT) Specimen Narrative Performed At EXAMINATION: XR CHEST 2 VW [facility] CLINICAL HISTORY: wheezing cough fever XR CHEST 2 VW images are submitted COMPARISON: NONE FINDINGS: The cardiac silhouette is normal in siz e. The pulmonary vasculature is within normal limits. The lung zones are clear . There is no pleural effusion or pneumothorax. IMPRESSION: 1. There is no acute cardiopulmonary di sease. [id number] Procedure Note Hm Interface, Radiology Results Incoming - 11/22/2018 2:19 PM CDT EXAMINATION: XR CHEST 2 VW CLINICAL HISTORY: wheezing cough fever XR CHEST 2 VW images are submitted COMPARISON: NONE FINDINGS: The cardiac silhouette is normal in size. The pulmonary vasculature is within normal limits. The lung zones are clear. There is no pleural effusion or pneumothorax. IMPRESSION: 1. There is no acute cardiopulmonary dis ease. [id number] Performing Organization Address City/[facility] Ph one Number [facility] [address] [place] [address] * Gram stain (11/22/2018 1:23 PM CDT) Gram stain Rare WBC's [facility] result Occasional Gram variable rods [facility] Comment: HOSPITAL Specimen Information Specimen Source: Urine Specimen Site: Clean catch Specimen Urine Performing Organization Address City/[facility] Ph one Number [facility] DEPARTMENT OF [address] [place] [id number] PATHOLOGY AND GENOMIC MEDICINE [facility] [address] [place] [id number] HOSPITAL * Urine culture (11/22/2018 1:23 PM CDT) Pathologist [facility] Urine culture Mixed susan <=10-3 col/cc [facility] isolate Comment: [facility] Specimen Information HOSPITAL Specimen Source: Urine Specimen Site: Clean catch Specimen Urine Performing Organization Address [facility] one Number [facility] DEPARTMENT OF [address] [place] [address] PATHOLOGY AND GENOMIC MEDICINE [address] * Group A strep, rapid antigen (11/22/2018 12:56 PM CDT) [facility] Group A strep, Negative for Group A [facility] rapid antigen Streptococcus antigen. [facility] result Comment: HOSPITAL Specimen Information Specimen Source: Throat Specimen Site: Not otherwise specified Specimen Throat - Not otherwise specified Performing Organization Address [facility] one Number [facility] DEPARTMENT OF [address] [place] [address] PATHOLOGY AND GENOMIC MEDICINE [address] * Strep screen culture (11/22/2018 12:56 PM CDT) [facility] Strep screen Streptococcus group B [facility] culture isolate The performance [facility] characteristics of this [facility] HOSPITAL on this isolate were validated by the Microbiology Laboratory at [facility]. This source has not been approved by the U.S. Food and Drug Administration. The results are not intended to be used as the sole means for clinical diagnosis or patient management. The Microbiology Laboratory is authorized under the clinical Laboratory Improvement Amendments of 1988 (CLIA-88) to perform high complexity testing. (A) Comment: Specimen Information Specimen Source: Throat Specimen Site: Not otherwise specified Specimen Throat - Not otherwise specified Performing Organization Address City/[facility] one Number [facility] DEPARTMENT OF [address] [place] [address] PATHOLOGY AND GENOMIC MEDICINE [address] * Urinalysis screen and microscopy, with reflex to culture (11/22/2018 12:53 PM CDT) Specimen site Clean catch [facility] Color, UA Straw [facility] Appearance, UA Clear [facility] Specific 1.009 1.001 - 1.035 [facility] gravity, UA [facility] pH, UA 6.0 5.0 - 8.5 [facility] Protein, UA Negative Negative [facility] Glucose, UA Negative Negative [facility] Ketones, UA Negative Negative [facility] Bilirubin, UA Negative Negative [facility] Blood, UA Large (A) Negative [facility] Nitrite, UA Negative Negative [facility] Urobilinogen, <2.0 <2.0 [facility] Leukocyte Trace (A) Negative [facility] esterase, UA [facility] Epithelial 2 /HPF [facility] cells, UA [facility] WBC, UA 2 0 - 4 /HPF [facility] RBC, UA 25 (H) 0 - 5 /HPF [facility] Bacteria, UA None seen None seen [facility] Yeast, UA None seen [facility] Yeast with None seen [facility] Specimen Urine Performing Organization Address City/[facility] Ph one Number [facility] DEPARTMENT OF [address] [place] [address] PATHOLOGY AND GENOMIC MEDICINE [address] * Estimated GFR (11/22/2018 12:47 PM CDT) Estimated GFR >=90 mL/min/1.73 m2 [facility] Comment: [facility] Interpretation G1 >=90 Normal or high G2 60-89 Mildly decreased G3a 45-59 Mildly to moderately decreased G3b 30-44 Moderately to severely decreased G4 15-29 Severely decreased G5 <15 Kidney failure The eGFR was calculated using the Chronic Kidney Disease Epidemiology Collaboration (CKD-EPI) equation. Interpretation is based on recommendations of the National Kidney Foundation-Kidney Disease Outcomes Quality Initiative (NKF-KDOQI) published in 2014. Specimen Plasma specimen Performing Organization Address City/[facility] Ph one Number [facility] DEPARTMENT OF [address] [place] [address] PATHOLOGY AND GENOMIC MEDICINE [address] * Manual differential (11/22/2018 12:47 PM CDT) Manual PERFORMED [facility] differential [facility] Neutrophils 64.0 39.0 - 69.0 % [facility] Lymphocytes 26.0 25.0 - 45.0 % [facility] Monocytes 5.0 0.0 - 10.0 % [facility] Eosinophils 3.0 0.0 - 5.0 % [facility] Basophils 1.0 0.0 - 1.0 % [facility] Metamyelocytes 1 % [facility] Promyelocytes 0 % [facility] Platelet slide Cole adequate [facility] Anisocytosis Moderate [facility] Ovalocytes Moderate [facility] Specimen Performing Organization Address City/[facility] Ph one Number [facility] DEPARTMENT OF [address] [place] [address] PATHOLOGY AND GENOMIC MEDICINE [address] * CBC with platelet and differential (11/22/2018 12:47 PM CDT) Pathologist [facility] WBC 4.40 (L) 4.50 - 11.00 k/uL [facility] RBC 4.15 (L) 4.20 - 5.50 m/uL [facility] HGB 12.7 12.0 - 16.0 g/dL [facility] HCT 40.6 37.0 - 47.0 % [facility] MCV 97.8 82.0 - 100.0 fL [facility] MCH 30.6 27.0 - 34.0 pg [facility] MCHC 31.3 31.0 - 37.0 g/dL [facility] RDW - SD 50.6 37.0 - 55.0 fL [facility] MPV 10.2 8.8 - 13.2 fL [facility] Platelet count 152 150 - 400 k/uL [facility] Nucleated RBC 0.00 /100 WBC [facility] Neutrophils 64.0 39.0 - 69.0 % [facility] Lymphocytes 26.0 25.0 - 45.0 % [facility] Monocytes 5.0 0.0 - 10.0 % [facility] Eosinophils 3.0 0.0 - 5.0 % [facility] Basophils 1.0 0.0 - 1.0 % [facility] Specimen Blood Performing Organization Address City/[facility]/[employer] Ph one Number [facility] DEPARTMENT OF [address] [place] [address] PATHOLOGY AND GENOMIC MEDICINE [address] * Comprehensive metabolic panel (11/22/2018 12:47 PM CDT) [facility] Sodium 134 (L) 135 - 148 mEq/L [facility] Potassium 3.7 3.5 - 5.0 mEq/L [facility] Chloride 99 98 - 112 mEq/L [facility] CO2 22 (L) 24 - 31 mEq/L [facility] Anion gap 13@ANIO 7 - 15 mEq/L [facility] BUN 4 (L) 6 - 20 mg/dL [facility] Creatinine 0.62 0.50 - 0.90 mg/dL [facility] Glucose 96 65 - 99 mg/dL [facility] Calcium 8.6 8.3 - 10.2 mg/dL [facility] Protein 6.8 6.3 - 8.3 g/dL [facility] Comment: [facility] HOSPITAL 4.6-7.0 g/dL 1 week 4.4-7.6 g/dL 7 months-1year 5.1-7.3 g/dL 1-2 years 5.6-7.5 g/dL >3 years 6.0-8.0 g/dL 18-150 6.3-8.3 g/dL Albumin 3.4 (L) 3.5 - 5.0 g/dL [facility] A/G ratio 1.0 0.7 - 3.8 [facility] Alkaline 90 35 - 104 U/L [facility] phosphatase [facility] AST 43 (H) 10 - 35 U/L [facility] ALT 41 5 - 50 U/L [facility] Total bilirubin <0.2 0.0 - 1.2 mg/dL [facility] Specimen Plasma specimen Performing Organization Address City/State/[facility] Ph one Number [facility] DEPARTMENT OF [address] [place] [address] PATHOLOGY AND GENOMIC MEDICINE [address] * Respiratory pathogen panel (11/22/2018 12:43 PM CDT) Pathologist [facility] Respiratory Negative for all pathogens [facility] pathogen panel tested: [facility] Negative for Adenovirus [facility] Negative for Coronavirus HKU1 Negative for Coronavirus NL63 Negative for Coronavirus 229E Negative for Coronavirus OC43 Negative for Human Metapneumovirus Negative for Rhinovirus/Enterovirus Negative for Influenza A Negative for Influenza A/H1 Negative for Influenza A/H3 Negative for Influenza A/H1-2009 Negative for Influenza B Negative for Parainfluenza Virus 1 Negative for Parainfluenza Virus 2 Negative for Parainfluenza Virus 3 Negative for Parainfluenza Virus 4 Negative for Respiratory Syncytial Virus Negative for Bordetella pertussis Negative for Chlamydophila pneumoniae Negative for Mycoplasma pneumoniae This real-time PCR assay detects the presence of nucleic acids (RNA or DNA) for the respiratory pathogens listed. A result of "Not-detected" does not exclude the possibility of the presence of one or more pathogens at concentrations less than the detectable limits of the assay. Comment: Specimen Information Specimen Source: Nares Specimen Site: Left Specimen Nares - Left Performing Organization Address [facility] Ph one Number [facility] [place] [address] PATHOLOGY AND GENOMIC MEDICINE [facility] [address] [place] [address] * Influenza antigen test, reflex negative to RPP (11/22/2018 12:43 PM CDT) Influenza Negative for Influenza A/B [facility] antigen antigen. (A) [facility] Comment: HOSPITAL Specimen Information Specimen Source: Nares Specimen Site: Left Specimen Nares - Left Performing Organization Address [facility] Ph one Number [facility] DEPARTMENT OF [address] [place] [address] PATHOLOGY AND GENOMIC MEDICINE [facility] [address] [place] [address] after 10/26/2018 Advance Directives For more information, please contact: [phone] Patient President [place] Explanation Type Date Recorded Advance Directives, 05/04/2018 3:40 AM Living Will and Medical Power of Oracle Database Developer
--- OUTSIDE RECORDS SUMMARY | 2019-10-27 09:38 | XMS REPORT | Continuity of Care Document ---
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 12/11/2018 [facility] ELECTROLYTES Alk Phos 113 39 - 136 12/11/2018 [facility] ELECTROLYTES Bili Total 0.5 0.2 - 1.3 12/11/2018 [facility] ELECTROLYTES eGFR 133 12/11/2018 Result Comment: The eGFR is calculated using the CKD-EPI formula. In most young, healthy individuals the eGFR will be >90 mL/min/1.73m2. The eGFR declines with age. An eGFR of 60-89 may be normal in some populations, particularly the elderly, for whom the CKD-EPI formula has not been extensively validated. Use of the eGFR is not recommended in the following populations:

Individuals with unstable creatinine concentrations, including patients and those with serious co-morbid conditions.

Patients with extremes in muscle mass or diet.

The data above are obtained from the National Kidney Disease Education Program (NKDEP) which additionally recommends that when the eGFR is used in patients with extremes of body mass index for purposes of drug dosing, the eGFR should be multiplied by the estimated BMI. [facility] HEMATOLOGY WBC 4.0 3.7 - 10.4 12/11/2018 [facility] HEMATOLOGY RBC 3.83 4.20 - 5.40 12/11/2018 [facility] HEMATOLOGY Hgb 12.3 12.0 - 16.0 12/11/2018 [facility] HEMATOLOGY Hct 36.4 36.0 - 48.0 12/11/2018 [facility] HEMATOLOGY MCV 95.1 80.0 - 98.0 12/11/2018 [facility] HEMATOLOGY MCH 32.2 27.0 - 31.0 12/11/2018 [facility] HEMATOLOGY MCHC 33.8 32.0 - 36.0 12/11/2018 [facility] HEMATOLOGY RDW 15.3 11.5 - 14.5 12/11/2018 [facility] HEMATOLOGY Platelet 189 133 - 450 12/11/2018 [facility] HEMATOLOGY MPV 7.3 7.4 - 10.4 12/11/2018 [facility] HEMATOLOGY Segs 46.5 45.0 - 75.0 12/11/2018 [facility] HEMATOLOGY Lymphocytes 38.7 20.0 - 40.0 12/11/2018 [facility] HEMATOLOGY Monocytes 7.3 2.0 - 12.0 12/11/2018 [facility] HEMATOLOGY Eosinophils 6.7 0.0 - 4.0 12/11/2018 [facility] HEMATOLOGY Basophils 0.8 0.0 - 1.0 12/11/2018 [facility] HEMATOLOGY Neutrophils # 1.8 1.5 - 8.1 12/11/2018 [facility] HEMATOLOGY Lymphocytes # 1.5 1.0 - 5.5 12/11/2018 [facility] HEMATOLOGY Monocytes # 0.3 0.0 - 0.8 12/11/2018 [facility] HEMATOLOGY Eosinophils # 0.3 0.0 - 0.5 12/11/2018 [facility] CHEM PANEL Glucose Lvl 81 70 - 99 12/10/2018 [facility] CHEM PANEL BUN 6 7 - 22 12/10/2018 [facility] CHEM PANEL Creatinine Lvl 0.58 0.50 - 1.40 12/10/2018 [facility] CHEM PANEL Sodium Lvl 139 135 - 145 12/10/2018 [facility] CHEM PANEL Potassium Lvl 3.7 3.5 - 5.1 12/10/2018 [facility] CHEM PANEL Chloride Lvl 104 95 - 109 12/10/2018 [facility] CHEM PANEL CO2 27 24 - 32 12/10/2018 [facility] CHEM PANEL Calcium Lvl 8.1 8.5 - 10.5 12/10/2018 [facility] CHEM PANEL AGAP 11.7 10.0 - 20.0 12/10/2018 [facility] CHEM PANEL eGFR 123 12/10/2018 Result Comment: The eGFR is calculated using the CKD-EPI formula. In most young, healthy individuals the eGFR will be >90 mL/min/1.73m2. The eGFR declines with age. An eGFR of 60-89 may be normal in some populations, particularly the elderly, for whom the CKD-EPI formula has not been extensively validated. Use of the eGFR is not recommended in the following populations:

Individuals with unstable creatinine concentrations, including patients and those with serious co-morbid conditions.

Patients with extremes in muscle mass or diet.

The data above are obtained from the National Kidney Disease Education Program (NKDEP) which additionally recommends that when the eGFR is used in patients with extremes of body mass index for purposes of drug dosing, the eGFR should be multiplied by the estimated BMI. [facility] CHEM PANEL Magnesium Lvl 1.2 1.8 - 2.4 12/10/2018 [facility] CARDIAC ENZYMES Total CK 116 12 - 191 12/09/2018 [facility] CHEM PANEL Magnesium Lvl 1.8 1.8 - 2.4 12/09/2018 [facility] DRUG SCREEN U Amph Scr Nega tive *NA* (12/09/18 1:12 AM) Negative 12/09/2018 [facility] DRUG SCREEN U Buffy Scr Nega tive *NA* (12/09/18 1:12 AM) Negative 12/09/2018 [facility] DRUG SCREEN U Benzodiaz Scr Nega tive *NA* (12/09/18 1:12 AM) Negative 12/09/2018 [facility] DRUG SCREEN U Cocaine Scr Nega tive *NA* (12/09/18 1:12 AM) Negative 12/09/2018 [facility] DRUG SCREEN U Cannab Scr Nega tive *NA* (12/09/18 1:12 AM) Negative 12/09/2018 [facility] DRUG SCREEN U Opiate Scr Nega tive *NA* (12/09/18 1:12 AM) Negative 12/09/2018 [facility] DRUG SCREEN U Phencyclidine Scr Nega tive *NA* (12/09/18 1:12 AM) Negative 12/09/2018 [facility] DRUG SCREEN UDS Note See Note (12/09/18 1:12 AM) 12/09/2018 [facility] ELECTROLYTES AGAP 11.1 10.0 - 20.0 12/09/2018 [facility] ELECTROLYTES Glucose Lvl 95 70 - 99 12/09/2018 [facility] ELECTROLYTES BUN 3 7 - 22 12/09/2018 [facility] ELECTROLYTES Creatinine Lvl 0.6 6 0.50 - 1.40 12/09/2018 [facility] ELECTROLYTES Sodium Lvl 144 135 - 145 12/09/2018 [facility] ELECTROLYTES Potassium Lvl 3.1 3.5 - 5.1 12/09/2018 [facility] ELECTROLYTES Chloride Lvl 110 95 - 109 12/09/2018 [facility] ELECTROLYTES CO2 26 24 - 32 12/09/2018 [facility] ELECTROLYTES Calcium Lvl 9.2 8.5 - 10.5 12/09/2018 [facility] ELECTROLYTES eGFR 118 12/09/2018 Result Comment: The eGFR is calculated using the CKD-EPI formula. In most young, healthy individuals the eGFR will be >90 mL/min/1.73m2. The eGFR declines with age. An eGFR of 60-89 may be normal in some populations, particularly the elderly, for whom the CKD-EPI formula has not been extensively validated. Use of the eGFR is not recommended in the following populations:

Individuals with unstable creatinine concentrations, including patients and those with serious co-morbid conditions.

Patients with extremes in muscle mass or diet.

The data above are obtained from the National Kidney Disease Education Program (NKDEP) which additionally recommends that when the eGFR is used in patients with extremes of body mass index for purposes of drug dosing, the eGFR should be multiplied by the estimated BMI. [facility] ENDOCRINOLOGY S Preg Ne gative *NA* (12/09/18 1:12 AM) Negative 12/09/2018 [facility] HEMATOLOGY WBC 8.2 3.7 - 10.4 12/09/2018 [facility] HEMATOLOGY RBC 4.24 4.20 - 5.40 12/09/2018 [facility] HEMATOLOGY Hgb 13.6 12.0 - 16.0 12/09/2018 [facility] HEMATOLOGY Hct 40.2 36.0 - 48.0 12/09/2018 [facility] HEMATOLOGY MCV 94.8 80.0 - 98.0 12/09/2018 [facility] HEMATOLOGY MCH 32.2 27.0 - 31.0 12/09/2018 [facility] HEMATOLOGY MCHC 33.9 32.0 - 36.0 12/09/2018 [facility] HEMATOLOGY RDW 15.7 11.5 - 14.5 12/09/2018 [facility] HEMATOLOGY Platelet 323 133 - 450 12/09/2018 [facility] HEMATOLOGY MPV 6.3 7.4 - 10.4 12/09/2018 [facility] HEMATOLOGY Segs 57.2 45.0 - 75.0 12/09/2018 [facility] HEMATOLOGY Lymphocytes 37.4 20.0 - 40.0 12/09/2018 [facility] HEMATOLOGY Monocytes 4.0 2.0 - 12.0 12/09/2018 [facility] HEMATOLOGY Eosinophils 0.5 0.0 - 4.0 12/09/2018 [facility] HEMATOLOGY Basophils 0.9 0.0 - 1.0 12/09/2018 [facility] HEMATOLOGY Neutrophils # 4.7 1.5 - 8.1 12/09/2018 [facility] HEMATOLOGY Lymphocytes # 3.1 1.0 - 5.5 12/09/2018 [facility] HEMATOLOGY Monocytes # 0.3 0.0 - 0.8 12/09/2018 [facility] HEMATOLOGY Basophils # 0.1 0.0 - 0.2 12/09/2018 [facility] TOXICOLOGY Acetaminoph Lvl <2 (12/09/18 1:12 AM) 10 - 20 12/09/2018 [facility] TOXICOLOGY Ethanol Lvl 485 12/09/2018 Result Comment: Critical Result(s) called to Teo at _12/09/2018 01:53 by_HC. Read back OK. [facility] TOXICOLOGY Etoh (%) 0.485 12/09/2018 Result Comment: Critical Result(s) called to Teo at _12/09/2018 01:53 by_HC. Read back OK. [facility] TOXICOLOGY Salicylate Lvl 3.2 0.0 - 30.0 12/09/2018 [facility] URINE AND STOOL UA Color Colorless *NA* (12/09/18 1:12 AM) Yellow 12/09/2018 [facility] URINE AND STOOL UA Turbidity Clear (12/09/18 1:12 AM) Clear 12/09/2018 [facility] URINE AND STOOL UA Spec Grav 1.002 <=1.030 12/09/2018 [facility] URINE AND STOOL UA pH 7.0 5.0 - 8.0 12/09/2018 [facility] URINE AND STOOL UA Protein Negative mg/dL Negative mg/dL 12/09/2018 [facility] URINE AND STOOL UA Glucose Negative mg/dL Negative mg/dL 12/09/2018 [facility] URINE AND STOOL UA Bili Negative *NA* (12/09/18 1:12 AM) Negative 12/09/2018 [facility] URINE AND STOOL UA Blood Negative (12/09/18 1:12 AM) Negative 12/09/2018 [facility] URINE AND STOOL UA Nitrite Negative (12/09/18 1:12 AM) Negative 12/09/2018 [facility] URINE AND STOOL UA Leuk Est Negative (12/09/18 1:12 AM) Negative 12/09/2018 [facility] URINE AND STOOL UA Sq Epi Occasional /LPF Few /LPF 12/09/2018 [facility] URINE AND STOOL UA Ketones Negative 12/09/2018 [facility] URINE AND STOOL UA Urobilinogen <=1.0 mg/dL 0.1 - 1.0 12/09/2018 [facility] URINE AND STOOL UA Color Light Yellow *NA* (12/05/18 3:52 PM) Yellow 12/05/2018 [facility] URINE AND STOOL UA Turbidity Clear (12/05/18 3:52 PM) Clear 12/05/2018 [facility] URINE AND STOOL UA Spec Grav 1.008 <=1.030 12/05/2018 [facility] URINE AND STOOL UA pH 6.0 5.0 - 8.0 12/05/2018 [facility] URINE AND STOOL UA Protein Negative mg/dL Negative mg/dL 12/05/2018 [facility] URINE AND STOOL UA Glucose Negative mg/dL Negative mg/dL 12/05/2018 [facility] URINE AND STOOL UA Bili Negative *NA* (12/05/18 3:52 PM) Negative 12/05/2018 [facility] URINE AND STOOL UA Blood Negative (12/05/18 3:52 PM) Negative 12/05/2018 [facility] URINE AND STOOL UA Nitrite Negative (12/05/18 3:52 PM) Negative 12/05/2018 [facility] URINE AND STOOL UA Leuk Est Negative (12/05/18 3:52 PM) Negative 12/05/2018 [facility] URINE AND STOOL Micro? Not Indicated *NA* (12/05/18 3:52 PM) 12/05/2018 [facility] URINE AND STOOL UA Ketones Negative 12/05/2018 [facility] URINE AND STOOL UA Urobilinogen <=1.0 mg/dL 0.1 - 1.0 12/05/2018 [facility] DRUG SCREEN U Amph Scr Nega tive *NA* (12/05/18 11:30 AM) Negative 12/05/2018 [facility] DRUG SCREEN U Buffy Scr Nega tive *NA* (12/05/18 11:30 AM) Negative 12/05/2018 [facility] DRUG SCREEN U Benzodiaz Scr Nega tive *NA* (12/05/18 11:30 AM) Negative 12/05/2018 [facility] DRUG SCREEN U Cocaine Scr Nega tive *NA* (12/05/18 11:30 AM) Negative 12/05/2018 [facility] DRUG SCREEN U Cannab Scr Nega tive *NA* (12/05/18 11:30 AM) Negative 12/05/2018 [facility] DRUG SCREEN U Opiate Scr Nega tive *NA* (12/05/18 11:30 AM) Negative 12/05/2018 [facility] DRUG SCREEN U Phencyclidine Scr Nega tive *NA* (12/05/18 11:30 AM) Negative 12/05/2018 [facility] DRUG SCREEN UDS Note See Note (12/05/18 11:30 AM) 12/05/2018 [facility] CHEM PANEL Glucose Lvl 86 70 - 99 12/05/2018 [facility] CHEM PANEL BUN 3 7 - 22 12/05/2018 [facility] CHEM PANEL Creatinine Lvl 0.60 0.50 - 1.40 12/05/2018 [facility] CHEM PANEL Sodium Lvl 143 135 - 145 12/05/2018 [facility] CHEM PANEL Potassium Lvl 3.6 3.5 - 5.1 12/05/2018 [facility] CHEM PANEL Chloride Lvl 107 95 - 109 12/05/2018 [facility] CHEM PANEL CO2 27 24 - 32 12/05/2018 [facility] CHEM PANEL Calcium Lvl 9.3 8.5 - 10.5 12/05/2018 [facility] CHEM PANEL Total Protein 8.2 6.4 - 8.4 12/05/2018 [facility] CHEM PANEL Albumin Lvl 4.0 3.5 - 5.0 12/05/2018 [facility] CHEM PANEL ALT 33 0 - 65 12/05/2018 [facility] CHEM PANEL AST 28 0 - 37 12/05/2018 [facility] CHEM PANEL Alk Phos 138 39 - 136 12/05/2018 [facility] CHEM PANEL Bili Total 0.4 0.2 - 1.3 12/05/2018 [facility] CHEM PANEL eGFR 122 12/05/2018 Result Comment: The eGFR is calculated using the CKD-EPI formula. In most young, healthy individuals the eGFR will be >90 mL/min/1.73m2. The eGFR declines with age. An eGFR of 60-89 may be normal in some populations, particularly the elderly, for whom the CKD-EPI formula has not been extensively validated. Use of the eGFR is not recommended in the following populations:

Individuals with unstable creatinine concentrations, including patients and those with serious co-morbid conditions.

Patients with extremes in muscle mass or diet.

The data above are obtained from the National Kidney Disease Education Program (NKDEP) which additionally recommends that when the eGFR is used in patients with extremes of body mass index for purposes of drug dosing, the eGFR should be multiplied by the estimated BMI. [facility] CHEM PANEL AGAP 12.6 10.0 - 20.0 12/05/2018 [facility] CHEM PANEL B/C Ratio 5 6 - 25 12/05/2018 [facility] CHEM PANEL Globulin 4.2 2.7 - 4.2 12/05/2018 [facility] CHEM PANEL A/G Ratio 1.0 0.7 - 1.6 12/05/2018 [facility] ENDOCRINOLOGY S Preg Ne gative *NA* (12/05/18 10:08 AM) Negative 12/05/2018 [facility] HEMATOLOGY WBC 7.8 3.7 - 10.4 12/05/2018 [facility] HEMATOLOGY RBC 4.26 4.20 - 5.40 12/05/2018 [facility] HEMATOLOGY Hgb 13.6 12.0 - 16.0 12/05/2018 [facility] HEMATOLOGY Hct 40.2 36.0 - 48.0 12/05/2018 [facility] HEMATOLOGY MCV 94.3 80.0 - 98.0 12/05/2018 [facility] HEMATOLOGY MCH 31.8 27.0 - 31.0 12/05/2018 [facility] HEMATOLOGY MCHC 33.8 32.0 - 36.0 12/05/2018 [facility] HEMATOLOGY RDW 15.5 11.5 - 14.5 12/05/2018 [facility] HEMATOLOGY Platelet 392 133 - 450 12/05/2018 [facility] HEMATOLOGY MPV 6.5 7.4 - 10.4 12/05/2018 [facility] HEMATOLOGY Segs 65.7 45.0 - 75.0 12/05/2018 [facility] HEMATOLOGY Lymphocytes 30.3 20.0 - 40.0 12/05/2018 [facility] HEMATOLOGY Monocytes 2.9 2.0 - 12.0 12/05/2018 [facility] HEMATOLOGY Eosinophils 0.3 0.0 - 4.0 12/05/2018 [facility] HEMATOLOGY Basophils 0.8 0.0 - 1.0 12/05/2018 [facility] HEMATOLOGY Neutrophils # 5.1 1.5 - 8.1 12/05/2018 [facility] HEMATOLOGY Lymphocytes # 2.4 1.0 - 5.5 12/05/2018 [facility] HEMATOLOGY Monocytes # 0.2 0.0 - 0.8 12/05/2018 [facility] HEMATOLOGY Basophils # 0.1 0.0 - 0.2 12/05/2018 [facility] TOXICOLOGY Acetaminoph Lvl <2 (12/05/18 10:08 AM) 10 - 20 12/05/2018 [facility] TOXICOLOGY Ethanol Lvl 359 12/05/2018 Result Comment: Critical Result(s) called to Sara Burgos at 12/05/2018 10:40 by KGF. Read back OK. [facility] TOXICOLOGY Etoh (%) 0.359 12/05/2018 Result Comment: Critical Result(s) called to Sara Burgos at 12/05/2018 10:40 by KGF. Read back OK. [facility] TOXICOLOGY Salicylate Lvl 3.9 0.0 - 30.0 12/05/2018 [facility] TOXICOLOGY Ethanol Lvl 377 10/18/2018 Result Comment: Critical Result(s) called to Lisha CRANE at 10/18/2018 04:50 by . Read back OK. [facility] TOXICOLOGY Etoh (%) 0.377 10/18/2018 [facility] CHEM PANEL Glucose Lvl 72 70 - 99 10/18/2018 [facility] CHEM PANEL BUN 5 7 - 22 10/18/2018 [facility] CHEM PANEL Creatinine Lvl 0.67 0.50 - 1.40 10/18/2018 [facility] CHEM PANEL Sodium Lvl 147 135 - 145 10/18/2018 [facility] CHEM PANEL Potassium Lvl 3.3 3.5 - 5.1 10/18/2018 [facility] CHEM PANEL Chloride Lvl 111 95 - 109 10/18/2018 [facility] CHEM PANEL CO2 26 24 - 32 10/18/2018 [facility] CHEM PANEL Calcium Lvl 8.4 8.5 - 10.5 10/18/2018 [facility] CHEM PANEL eGFR 117 10/18/2018 Result Comment: The eGFR is calculated using the CKD-EPI formula. In most young, healthy individuals the eGFR will be >90 mL/min/1.73m2. The eGFR declines with age. An eGFR of 60-89 may be normal in some populations, particularly the elderly, for whom the CKD-EPI formula has not been extensively validated. Use of the eGFR is not recommended in the following populations:

Individuals with unstable creatinine concentrations, including patients and those with serious co-morbid conditions.

Patients with extremes in muscle mass or diet.

The data above are obtained from the National Kidney Disease Education Program (NKDEP) which additionally recommends that when the eGFR is used in patients with extremes of body mass index for purposes of drug dosing, the eGFR should be multiplied by the estimated BMI. [facility] CHEM PANEL AGAP 13.3 10.0 - 20.0 10/18/2018 [facility] ENDOCRINOLOGY S Preg Ne gative *NA* (10/18/18 1:40 AM) Negative 10/18/2018 [facility] HEMATOLOGY WBC 4.2 3.7 - 10.4 10/18/2018 [facility] HEMATOLOGY RBC 4.38 4.20 - 5.40 10/18/2018 [facility] HEMATOLOGY Hgb 14.0 12.0 - 16.0 10/18/2018 [facility] HEMATOLOGY Hct 42.1 36.0 - 48.0 10/18/2018 [facility] HEMATOLOGY MCV 96.0 80.0 - 98.0 10/18/2018 [facility] HEMATOLOGY MCH 32.0 27.0 - 31.0 10/18/2018 [facility] HEMATOLOGY MCHC 33.4 32.0 - 36.0 10/18/2018 [facility] HEMATOLOGY RDW 15.6 11.5 - 14.5 10/18/2018 [facility] HEMATOLOGY Platelet 187 133 - 450 10/18/2018 [facility] HEMATOLOGY MPV 7.8 7.4 - 10.4 10/18/2018 [facility] HEMATOLOGY Segs 40.6 45.0 - 75.0 10/18/2018 [facility] HEMATOLOGY Lymphocytes 44.7 20.0 - 40.0 10/18/2018 [facility] HEMATOLOGY Monocytes 12.4 2.0 - 12.0 10/18/2018 [facility] HEMATOLOGY Eosinophils 1.3 0.0 - 4.0 10/18/2018 [facility] HEMATOLOGY Basophils 1.0 0.0 - 1.0 10/18/2018 [facility] HEMATOLOGY Neutrophils # 1.7 1.5 - 8.1 10/18/2018 [facility] HEMATOLOGY Lymphocytes # 1.9 1.0 - 5.5 10/18/2018 [facility] HEMATOLOGY Monocytes # 0.5 0.0 - 0.8 10/18/2018 [facility] HEMATOLOGY Eosinophils # 0.1 0.0 - 0.5 10/18/2018 [facility] URINE AND STOOL UA Urobilinogen <=1.0 mg/dL 0.1 - 1.0 09/25/2018 [facility] URINE AND STOOL UA Ketones Negative 09/25/2018 [facility] URINE AND STOOL UA Color LYYELLOW 09/25/2018 [facility] URINE AND STOOL UA WBC <1 0 - 5 09/25/2018 [facility] URINE AND STOOL UA RBC <1 0 - 2 09/25/2018 [facility] URINE AND STOOL UA Bili Negative *NA* (09/24/18 11:27 PM) Negative 09/25/2018 [facility] URINE AND STOOL UA Glucose Negative mg/dL Negative mg/dL 09/25/2018 [facility] URINE AND STOOL UA Sq Epi Occasional /LPF Few /LPF 09/25/2018 [facility] URINE AND STOOL UA Leuk Est Negative (09/24/18 11:27 PM) Negative 09/25/2018 [facility] URINE AND STOOL UA Nitrite Negative (09/24/18 11:27 PM) Negative 09/25/2018 [facility] URINE AND STOOL UA Blood Negative (09/24/18 11:27 PM) Negative 09/25/2018 [facility] URINE AND STOOL UA Protein Negative mg/dL Negative mg/dL 09/25/2018 [facility] URINE AND STOOL UA pH 6.0 5.0 - 8.0 09/25/2018 [facility] URINE AND STOOL UA Spec Grav 1.003 <=1.030 09/25/2018 [facility] URINE AND STOOL UA Turbidity Clear (09/24/18 11:27 PM) Clear 09/25/2018 [facility] URINE CHEM U Preg Negat jaime (09/24/18 11:27 PM) Negative 09/25/2018 [facility] ELECTROLYTES AGAP 12.2 10.0 - 20.0 09/25/2018 [facility] [facility] ELECTROLYTES B/C Ratio 7 6 - 25 09/25/2018 [facility] ELECTROLYTES A/G Ratio 1.1 0.7 - 1.6 09/25/2018 [facility] ELECTROLYTES Globulin 3.8 2.7 - 4.2 09/25/2018 [facility] ELECTROLYTES eGFR 123 09/25/2018 Result Comment: The eGFR is calculated using the CKD-EPI formula. In most young, healthy individuals the eGFR will be >90 mL/min/1.73m2. The eGFR declines with age. An eGFR of 60-89 may be normal in some populations, particularly the elderly, for whom the CKD-EPI formula has not been extensively validated. Use of the eGFR is not recommended in the following populations:

Individuals with unstable creatinine concentrations, including patients and those with serious co-morbid conditions.

Patients with extremes in muscle mass or diet.

The data above are obtained from the National Kidney Disease Education Program (NKDEP) which additionally recommends that when the eGFR is used in patients with extremes of body mass index for purposes of drug dosing, the eGFR should be multiplied by the estimated BMI. [facility] ELECTROLYTES AST 106 0 - 37 09/25/2018 [facility] ELECTROLYTES Bili Total 0.2 0.2 - 1.3 09/25/2018 [facility] ELECTROLYTES Alk Phos 141 39 - 136 09/25/2018 [facility] ELECTROLYTES Chloride Lvl 113 95 - 109 09/25/2018 [facility] ELECTROLYTES Calcium Lvl 8.7 8.5 - 10.5 09/25/2018 [facility] ELECTROLYTES CO2 25 24 - 32 09/25/2018 [facility] ELECTROLYTES ALT 98 0 - 65 09/25/2018 [facility] ELECTROLYTES Albumin Lvl 4.0 3.5 - 5.0 09/25/2018 [facility] ELECTROLYTES Total Protein 7.8 6.4 - 8.4 09/25/2018 [facility] ELECTROLYTES BUN 4 7 - 22 09/25/2018 [facility] ELECTROLYTES Potassium Lvl 4.2 3.5 - 5.1 09/25/2018 [facility] ELECTROLYTES Sodium Lvl 146 135 - 145 09/25/2018 [facility] ELECTROLYTES Creatinine Lvl 0.5 9 0.50 - 1.40 09/25/2018 [facility] ELECTROLYTES Glucose Lvl 77 70 - 99 09/25/2018 [facility] HEMATOLOGY Neutrophils # 2.2 1.5 - 8.1 09/25/2018 [facility] HEMATOLOGY Monocytes # 0.4 0.0 - 0.8 09/25/2018 [facility] HEMATOLOGY Basophils 0.2 0.0 - 1.0 09/25/2018 [facility] HEMATOLOGY Monocytes 9.2 2.0 - 12.0 09/25/2018 [facility] HEMATOLOGY Eosinophils 1.8 0.0 - 4.0 09/25/2018 [facility] HEMATOLOGY Segs 47.8 45.0 - 75.0 09/25/2018 [facility] HEMATOLOGY Lymphocytes 41.0 20.0 - 40.0 09/25/2018 [facility] HEMATOLOGY Eosinophils # 0.1 0.0 - 0.5 09/25/2018 [facility] HEMATOLOGY Lymphocytes # 1.9 1.0 - 5.5 09/25/2018 [facility] HEMATOLOGY MPV 7.6 7.4 - 10.4 09/25/2018 [facility] HEMATOLOGY MCHC 33.6 32.0 - 36.0 09/25/2018 [facility] HEMATOLOGY MCH 31.8 27.0 - 31.0 09/25/2018 [facility] HEMATOLOGY Hct 43.5 36.0 - 48.0 09/25/2018 [facility] HEMATOLOGY Hgb 14.6 12.0 - 16.0 09/25/2018 [facility] HEMATOLOGY MCV 94.6 80.0 - 98.0 09/25/2018 [facility] HEMATOLOGY RDW 15.1 11.5 - 14.5 09/25/2018 [facility] HEMATOLOGY Platelet 241 133 - 450 09/25/2018 [facility] HEMATOLOGY WBC 4.6 3.7 - 10.4 09/25/2018 [facility] HEMATOLOGY RBC 4.60 4.20 - 5.40 09/25/2018 [facility] CHEM PANEL eGFR 120 09/09/2018 Result Comment: The eGFR is calculated using the CKD-EPI formula. In most young, healthy individuals the eGFR will be >90 mL/min/1.73m2. The eGFR declines with age. An eGFR of 60-89 may be normal in some populations, particularly the elderly, for whom the CKD-EPI formula has not been extensively validated. Use of the eGFR is not recommended in the following populations:

Individuals with unstable creatinine concentrations, including patients and those with serious co-morbid conditions.

Patients with extremes in muscle mass or diet.

The data above are obtained from the National Kidney Disease Education Program (NKDEP) which additionally recommends that when the eGFR is used in patients with extremes of body mass index for purposes of drug dosing, the eGFR should be multiplied by the estimated BMI. [facility] CHEM PANEL CO2 30 24 - 32 09/09/2018 [facility] CHEM PANEL Chloride Lvl 110 95 - 109 09/09/2018 [facility] CHEM PANEL Potassium Lvl 3.7 3.5 - 5.1 09/09/2018 [facility] CHEM PANEL Calcium Lvl 8.3 8.5 - 10.5 09/09/2018 [facility] CHEM PANEL Sodium Lvl 145 135 - 145 09/09/2018 [facility] CHEM PANEL Creatinine Lvl 0.64 0.50 - 1.40 09/09/2018 [facility] CHEM PANEL BUN 3 7 - 22 09/09/2018 [facility] CHEM PANEL Glucose Lvl 77 70 - 99 09/09/2018 [facility] CHEM PANEL AGAP 8.7 10.0 - 20.0 09/09/2018 [facility] DRUG SCREEN U Cocaine Scr Nega tive *NA* (09/09/18 2:42 AM) Negative 09/09/2018 [facility] DRUG SCREEN UDS Note See Note (09/09/18 2:42 AM) 09/09/2018 [facility] DRUG SCREEN U Phencyclidine Scr Nega tive *NA* (09/09/18 2:42 AM) Negative 09/09/2018 [facility] DRUG SCREEN U Opiate Scr Nega tive *NA* (09/09/18 2:42 AM) Negative 09/09/2018 [facility] DRUG SCREEN U Cannab Scr Nega tive *NA* (09/09/18 2:42 AM) Negative 09/09/2018 [facility] DRUG SCREEN U Amph Scr Nega tive *NA* (09/09/18 2:42 AM) Negative 09/09/2018 [facility] DRUG SCREEN U Buffy Scr Nega tive *NA* (09/09/18 2:42 AM) Negative 09/09/2018 [facility] DRUG SCREEN U Benzodiaz Scr Posi tive *ABN* (09/09/18 2:42 AM) Negative 09/09/2018 [facility] ENDOCRINOLOGY S Preg Ne gative *NA* (09/09/18 2:42 AM) Negative 09/09/2018 [facility] HEMATOLOGY Monocytes 11.7 2.0 - 12.0 09/09/2018 [facility] HEMATOLOGY Lymphocytes 58.0 20.0 - 40.0 09/09/2018 [facility] HEMATOLOGY Basophils 1.3 0.0 - 1.0 09/09/2018 [facility] HEMATOLOGY Eosinophils 2.1 0.0 - 4.0 09/09/2018 [facility] HEMATOLOGY Lymphocytes # 2.1 1.0 - 5.5 09/09/2018 [facility] HEMATOLOGY Eosinophils # 0.1 0.0 - 0.5 09/09/2018 [facility] HEMATOLOGY Monocytes # 0.4 0.0 - 0.8 09/09/2018 [facility] HEMATOLOGY Segs 26.9 45.0 - 75.0 09/09/2018 [facility] HEMATOLOGY Neutrophils # 1.0 1.5 - 8.1 09/09/2018 [facility] HEMATOLOGY MPV 7.8 7.4 - 10.4 09/09/2018 [facility] HEMATOLOGY Platelet 141 133 - 450 09/09/2018 [facility] HEMATOLOGY RDW 14.8 11.5 - 14.5 09/09/2018 [facility] HEMATOLOGY MCV 94.8 80.0 - 98.0 09/09/2018 [facility] HEMATOLOGY MCH 31.4 27.0 - 31.0 09/09/2018 [facility] HEMATOLOGY MCHC 33.1 32.0 - 36.0 09/09/2018 [facility] HEMATOLOGY Hgb 14.5 12.0 - 16.0 09/09/2018 [facility] HEMATOLOGY Hct 43.8 36.0 - 48.0 09/09/2018 [facility] HEMATOLOGY RBC 4.62 4.20 - 5.40 09/09/2018 [facility] HEMATOLOGY WBC 3.7 3.7 - 10.4 09/09/2018 [facility] TOXICOLOGY Ethanol Lvl 345 09/09/2018 Result Comment: Critical Result(s) called to PAULA Laureano at 09/09/2018 03:21_ by_CG. Read back OK. [facility] TOXICOLOGY Etoh (%) 0.345 09/09/2018 [facility] URINE AND STOOL UA Color LYYELLOW 09/09/2018 [facility] URINE AND STOOL UA Ketones Negative 09/09/2018 [facility] URINE AND STOOL UA Urobilinogen <=1.0 mg/dL 0.1 - 1.0 09/09/2018 [facility] URINE AND STOOL UA Bili Negative *NA* (09/09/18 2:42 AM) Negative 09/09/2018 [facility] URINE AND STOOL UA Protein Negative mg/dL Negative mg/dL 09/09/2018 [facility] URINE AND STOOL UA Glucose Negative mg/dL Negative mg/dL 09/09/2018 [facility] URINE AND STOOL UA Blood Negative (09/09/18 2:42 AM) Negative 09/09/2018 [facility] URINE AND STOOL UA Nitrite Negative (09/09/18 2:42 AM) Negative 09/09/2018 [facility] URINE AND STOOL UA Leuk Est Negative (09/09/18 2:42 AM) Negative 09/09/2018 [facility] URINE AND STOOL UA Sq Epi Occasional /LPF Few /LPF 09/09/2018 [facility] URINE AND STOOL UA Mucus Few /LPF None Seen /LPF 09/09/2018 [facility] URINE AND STOOL UA WBC 1 0 - 5 09/09/2018 [facility] URINE AND STOOL UA RBC <1 0 - 2 09/09/2018 [facility] URINE AND STOOL UA Turbidity Clear (09/09/18 2:42 AM) Clear 09/09/2018 [facility] URINE AND STOOL UA Spec Grav 1.004 <=1.030 09/09/2018 [facility] URINE AND STOOL UA pH 6.0 5.0 - 8.0 09/09/2018 [facility] DRUG SCREEN U Benzodiaz Scr Posi tive *ABN* (08/23/18 7:55 PM) Negative 08/24/2018 [facility] DRUG SCREEN U Phencyclidine Scr Nega tive *NA* (08/23/18 7:55 PM) Negative 08/24/2018 [facility] DRUG SCREEN U Buffy Scr Nega tive *NA* (08/23/18 7:55 PM) Negative 08/24/2018 [facility] DRUG SCREEN UDS Note See Note (08/23/18 7:55 PM) 08/24/2018 [facility] DRUG SCREEN U Cocaine Scr Nega tive *NA* (08/23/18 7:55 PM) Negative 08/24/2018 [facility] DRUG SCREEN U Cannab Scr Nega tive *NA* (08/23/18 7:55 PM) Negative 08/24/2018 [facility] DRUG SCREEN U Opiate Scr Nega tive *NA* (08/23/18 7:55 PM) Negative 08/24/2018 [facility] DRUG SCREEN U Amph Scr Nega tive *NA* (08/23/18 7:55 PM) Negative 08/24/2018 [facility] URINE AND STOOL UA WBC 1 0 - 5 08/24/2018 [facility] URINE AND STOOL UA Sq Epi Occasional /LPF Few /LPF 08/24/2018 [facility] URINE AND STOOL UA Urobilinogen <=1.0 mg/dL 0.1 - 1.0 08/24/2018 [facility] URINE AND STOOL UA Color LYYELLOW 08/24/2018 [facility] URINE AND STOOL UA Ketones Negative 08/24/2018 [facility] URINE AND STOOL UA RBC <1 0 - 2 08/24/2018 [facility] URINE AND STOOL UA Nitrite Negative (08/23/18 7:55 PM) Negative 08/24/2018 [facility] URINE AND STOOL UA Blood Negative (08/23/18 7:55 PM) Negative 08/24/2018 [facility] URINE AND STOOL UA Leuk Est Negative (08/23/18 7:55 PM) Negative 08/24/2018 [facility] URINE AND STOOL UA pH 6.0 5.0 - 8.0 08/24/2018 [facility] URINE AND STOOL UA Protein Negative mg/dL Negative mg/dL 08/24/2018 [facility] URINE AND STOOL UA Bili Negative *NA* (08/23/18 7:55 PM) Negative 08/24/2018 [facility] URINE AND STOOL UA Spec Grav 1.004 <=1.030 08/24/2018 [facility] URINE AND STOOL UA Turbidity Clear (08/23/18 7:55 PM) Clear 08/24/2018 [facility] URINE AND STOOL UA Glucose Negative mg/dL Negative mg/dL 08/24/2018 [facility] CHEM PANEL B/C Ratio 8 6 - 25 08/24/2018 [facility] CHEM PANEL AGAP 13.7 10.0 - 20.0 08/24/2018 [facility] CHEM PANEL A/G Ratio 1.1 0.7 - 1.6 08/24/2018 [facility] CHEM PANEL Globulin 3.6 2.7 - 4.2 08/24/2018 [facility] CHEM PANEL eGFR 120 08/24/2018 Result Comment: The eGFR is calculated using the CKD-EPI formula. In most young, healthy individuals the eGFR will be >90 mL/min/1.73m2. The eGFR declines with age. An eGFR of 60-89 may be normal in some populations, particularly the elderly, for whom the CKD-EPI formula has not been extensively validated. Use of the eGFR is not recommended in the following populations:

Individuals with unstable creatinine concentrations, including patients and those with serious co-morbid conditions.

Patients with extremes in muscle mass or diet.

The data above are obtained from the National Kidney Disease Education Program (NKDEP) which additionally recommends that when the eGFR is used in patients with extremes of body mass index for purposes of drug dosing, the eGFR should be multiplied by the estimated BMI. [facility] CHEM PANEL ALT 73 0 - 65 08/24/2018 [facility] CHEM PANEL Albumin Lvl 3.8 3.5 - 5.0 08/24/2018 [facility] CHEM PANEL Total Protein 7.4 6.4 - 8.4 08/24/2018 [facility] CHEM PANEL Alk Phos 128 39 - 136 08/24/2018 [facility] CHEM PANEL AST 61 0 - 37 08/24/2018 [facility] CHEM PANEL Bili Total 0.2 0.2 - 1.3 08/24/2018 [facility] CHEM PANEL Glucose Lvl 94 70 - 99 08/24/2018 [facility] CHEM PANEL Creatinine Lvl 0.64 0.50 - 1.40 08/24/2018 [facility] CHEM PANEL BUN 5 7 - 22 08/24/2018 [facility] CHEM PANEL Chloride Lvl 111 95 - 109 08/24/2018 [facility] CHEM PANEL Potassium Lvl 3.7 3.5 - 5.1 08/24/2018 [facility] CHEM PANEL Sodium Lvl 145 135 - 145 08/24/2018 [facility] CHEM PANEL Calcium Lvl 8.5 8.5 - 10.5 08/24/2018 [facility] CHEM PANEL CO2 24 24 - 32 08/24/2018 [facility] ENDOCRINOLOGY S Preg Ne gative *NA* (08/23/18 7:33 PM) Negative 08/24/2018 [facility] HEMATOLOGY Eosinophils # 0.1 0.0 - 0.5 08/24/2018 [facility] HEMATOLOGY Basophils # 0.1 0.0 - 0.2 08/24/2018 [facility] HEMATOLOGY Neutrophils # 2.3 1.5 - 8.1 08/24/2018 [facility] HEMATOLOGY Lymphocytes # 1.6 1.0 - 5.5 08/24/2018 [facility] HEMATOLOGY Monocytes # 0.5 0.0 - 0.8 08/24/2018 [facility] HEMATOLOGY Eosinophils 2.4 0.0 - 4.0 08/24/2018 [facility] HEMATOLOGY Basophils 1.4 0.0 - 1.0 08/24/2018 [facility] HEMATOLOGY Monocytes 10.8 2.0 - 12.0 08/24/2018 [facility] HEMATOLOGY Lymphocytes 34.9 20.0 - 40.0 08/24/2018 [facility] HEMATOLOGY Segs 50.5 45.0 - 75.0 08/24/2018 [facility] HEMATOLOGY MCV 94.4 80.0 - 98.0 08/24/2018 [facility] HEMATOLOGY Hct 42.3 36.0 - 48.0 08/24/2018 [facility] HEMATOLOGY MCHC 33.1 32.0 - 36.0 08/24/2018 [facility] HEMATOLOGY MCH 31.2 27.0 - 31.0 08/24/2018 [facility] HEMATOLOGY WBC 4.6 3.7 - 10.4 08/24/2018 [facility] HEMATOLOGY Hgb 14.0 12.0 - 16.0 08/24/2018 [facility] HEMATOLOGY RBC 4.48 4.20 - 5.40 08/24/2018 [facility] HEMATOLOGY Platelet 224 133 - 450 08/24/2018 [facility] HEMATOLOGY RDW 13.7 11.5 - 14.5 08/24/2018 [facility] HEMATOLOGY MPV 7.8 7.4 - 10.4 08/24/2018 [facility] TOXICOLOGY Etoh (%) 0.369 08/24/2018 [facility] TOXICOLOGY Ethanol Lvl 369 08/24/2018 Result Comment: Critical Result(s) called to PAULA Osborn at 08/23/2018 20:18_ by_CG. Read back OK. [facility] TOXICOLOGY Salicylate Lvl 3.4 0.0 - 30.0 08/24/2018 [facility] TOXICOLOGY Acetaminoph Lvl <2 (08/23/18 7:33 PM) 10 - 20 08/24/2018 [facility] DRUG SCREEN UDS Note See Note (08/01/18 9:39 PM) 08/02/2018 [facility] DRUG SCREEN U Opiate Scr Nega tive *NA* (08/01/18 9:39 PM) Negative 08/02/2018 [facility] DRUG SCREEN U Cocaine Scr Nega tive *NA* (08/01/18 9:39 PM) Negative 08/02/2018 [facility] DRUG SCREEN U Benzodiaz Scr Nega tive *NA* (08/01/18 9:39 PM) Negative 08/02/2018 [facility] DRUG SCREEN U Amph Scr Nega tive *NA* (08/01/18 9:39 PM) Negative 08/02/2018 [facility] DRUG SCREEN U Buffy Scr Nega tive *NA* (08/01/18 9:39 PM) Negative 08/02/2018 [facility] DRUG SCREEN U Cannab Scr Nega tive *NA* (08/01/18 9:39 PM) Negative 08/02/2018 [facility] DRUG SCREEN U Phencyclidine Scr Nega tive *NA* (08/01/18 9:39 PM) Negative 08/02/2018 [facility] URINE AND STOOL UA Leuk Est Negative (08/01/18 9:39 PM) Negative 08/02/2018 [facility] URINE AND STOOL UA WBC <1 0 - 5 08/02/2018 [facility] URINE AND STOOL UA RBC <1 0 - 2 08/02/2018 [facility] URINE AND STOOL UA Blood Negative (08/01/18 9:39 PM) Negative 08/02/2018 [facility] URINE AND STOOL UA Nitrite Negative (08/01/18 9:39 PM) Negative 08/02/2018 [facility] URINE AND STOOL UA pH 6.0 5.0 - 8.0 08/02/2018 [facility] URINE AND STOOL UA Ketones Trace mg/dL Negative mg/dL 08/02/2018 [facility] URINE AND STOOL UA Bili Negative *NA* (08/01/18 9:39 PM) Negative 08/02/2018 [facility] URINE AND STOOL UA Protein Negative mg/dL Negative mg/dL 08/02/2018 [facility] URINE AND STOOL UA Turbidity Clear (08/01/18 9:39 PM) Clear 08/02/2018 [facility] URINE AND STOOL UA Spec Grav 1.004 <=1.030 08/02/2018 [facility] URINE AND STOOL UA Color LYYELLOW 08/02/2018 [facility] URINE AND STOOL UA Sq Epi None Seen 08/02/2018 [facility] URINE AND STOOL UA Glucose 50mg/dl 08/02/2018 [facility] URINE AND STOOL UA Urobilinogen <=1.0 mg/dL 0.1 - 1.0 08/02/2018 [facility] TOXICOLOGY Etoh (%) 0.419 08/02/2018 [facility] TOXICOLOGY Ethanol Lvl 419 08/02/2018 Result Comment: Critical Result(s) called to Clif Gwendolyn at 08/01/2018 22:07 by RP. Read back OK. [facility] CARDIAC ENZYMES Total CK 86 12 - 191 08/02/2018 [facility] ELECTROLYTES AGAP 19.6 10.0 - 20.0 08/02/2018 [facility] ELECTROLYTES B/C Ratio 11 6 - 25 08/02/2018 [facility] ELECTROLYTES A/G Ratio 1.1 0.7 - 1.6 08/02/2018 [facility] ELECTROLYTES Globulin 3.5 2.7 - 4.2 08/02/2018 [facility] ELECTROLYTES eGFR 115 08/02/2018 Result Comment: The eGFR is calculated using the CKD-EPI formula. In most young, healthy individuals the eGFR will be >90 mL/min/1.73m2. The eGFR declines with age. An eGFR of 60-89 may be normal in some populations, particularly the elderly, for whom the CKD-EPI formula has not been extensively validated. Use of the eGFR is not recommended in the following populations:

Individuals with unstable creatinine concentrations, including patients and those with serious co-morbid conditions.

Patients with extremes in muscle mass or diet.

The data above are obtained from the National Kidney Disease Education Program (NKDEP) which additionally recommends that when the eGFR is used in patients with extremes of body mass index for purposes of drug dosing, the eGFR should be multiplied by the estimated BMI. [facility] ELECTROLYTES BUN 8 7 - 22 08/02/2018 [facility] ELECTROLYTES Creatinine Lvl 0.7 1 0.50 - 1.40 08/02/2018 [facility] ELECTROLYTES Glucose Lvl 64 70 - 99 08/02/2018 [facility] ELECTROLYTES Bili Total 0.2 0.2 - 1.3 08/02/2018 [facility] ELECTROLYTES Albumin Lvl 3.7 3.5 - 5.0 08/02/2018 [facility] ELECTROLYTES Total Protein 7.2 6.4 - 8.4 08/02/2018 [facility] ELECTROLYTES Alk Phos 93 39 - 136 08/02/2018 [facility] ELECTROLYTES ALT 28 0 - 65 08/02/2018 [facility] ELECTROLYTES AST 32 0 - 37 08/02/2018 [facility] ELECTROLYTES Sodium Lvl 146 135 - 145 08/02/2018 [facility] ELECTROLYTES Potassium Lvl 3.6 3.5 - 5.1 08/02/2018 [facility] ELECTROLYTES Calcium Lvl 8.7 8.5 - 10.5 08/02/2018 [facility] ELECTROLYTES Chloride Lvl 108 95 - 109 08/02/2018 [facility] ELECTROLYTES CO2 22 24 - 32 08/02/2018 [facility] ENDOCRINOLOGY S Preg Ne gative *NA* (08/01/18 9:04 PM) Negative 08/02/2018 [facility] HEMATOLOGY Basophils # 0.1 0.0 - 0.2 08/02/2018 [facility] HEMATOLOGY Eosinophils # 0.1 0.0 - 0.5 08/02/2018 [facility] HEMATOLOGY Monocytes # 0.3 0.0 - 0.8 08/02/2018 [facility] HEMATOLOGY Lymphocytes 24.4 20.0 - 40.0 08/02/2018 [facility] HEMATOLOGY Segs 69.9 45.0 - 75.0 08/02/2018 [facility] HEMATOLOGY Eosinophils 0.8 0.0 - 4.0 08/02/2018 [facility] HEMATOLOGY Lymphocytes # 2.1 1.0 - 5.5 08/02/2018 [facility] HEMATOLOGY Neutrophils # 5.9 1.5 - 8.1 08/02/2018 [facility] HEMATOLOGY Basophils 1.0 0.0 - 1.0 08/02/2018 [facility] HEMATOLOGY Monocytes 3.9 2.0 - 12.0 08/02/2018 [facility] HEMATOLOGY Hgb 12.8 12.0 - 16.0 08/02/2018 [facility] HEMATOLOGY RDW 13.3 11.5 - 14.5 08/02/2018 [facility] HEMATOLOGY Platelet 340 133 - 450 08/02/2018 [facility] HEMATOLOGY MCHC 33.8 32.0 - 36.0 08/02/2018 [facility] HEMATOLOGY MPV 7.4 7.4 - 10.4 08/02/2018 [facility] HEMATOLOGY MCH 31.7 27.0 - 31.0 08/02/2018 [facility] HEMATOLOGY Hct 38.0 36.0 - 48.0 08/02/2018 [facility] HEMATOLOGY MCV 93.9 80.0 - 98.0 08/02/2018 [facility] HEMATOLOGY RBC 4.05 4.20 - 5.40 08/02/2018 [facility] HEMATOLOGY WBC 8.4 3.7 - 10.4 08/02/2018 [facility] CHEM PANEL Calcium Lvl 8.7 8.5 - 10.5 07/30/2018 [facility] CHEM PANEL Chloride Lvl 109 95 - 109 07/30/2018 [facility] CHEM PANEL Potassium Lvl 3.8 3.5 - 5.1 07/30/2018 [facility] CHEM PANEL Sodium Lvl 146 135 - 145 07/30/2018 [facility] CHEM PANEL eGFR 120 07/30/2018 Result Comment: The eGFR is calculated using the CKD-EPI formula. In most young, healthy individuals the eGFR will be >90 mL/min/1.73m2. The eGFR declines with age. An eGFR of 60-89 may be normal in some populations, particularly the elderly, for whom the CKD-EPI formula has not been extensively validated. Use of the eGFR is not recommended in the following populations:

Individuals with unstable creatinine concentrations, including patients and those with serious co-morbid conditions.

Patients with extremes in muscle mass or diet.

The data above are obtained from the National Kidney Disease Education Program (NKDEP) which additionally recommends that when the eGFR is used in patients with extremes of body mass index for purposes of drug dosing, the eGFR should be multiplied by the estimated BMI. [facility] CHEM PANEL AST 18 0 - 37 07/30/2018 [facility] CHEM PANEL Creatinine Lvl 0.64 0.50 - 1.40 07/30/2018 [facility] CHEM PANEL Albumin Lvl 4.0 3.5 - 5.0 07/30/2018 [facility] CHEM PANEL CO2 27 24 - 32 07/30/2018 [facility] CHEM PANEL Glucose Lvl 90 70 - 99 07/30/2018 [facility] CHEM PANEL BUN 4 7 - 22 07/30/2018 [facility] CHEM PANEL Bili Total 0.2 0.2 - 1.3 07/30/2018 [facility] CHEM PANEL Total Protein 7.6 6.4 - 8.4 07/30/2018 [facility] CHEM PANEL Alk Phos 79 39 - 136 07/30/2018 [facility] CHEM PANEL ALT 31 0 - 65 07/30/2018 [facility] CHEM PANEL B/C Ratio 6 6 - 25 07/30/2018 [facility] CHEM PANEL AGAP 13.8 10.0 - 20.0 07/30/2018 [facility] CHEM PANEL Globulin 3.6 2.7 - 4.2 07/30/2018 [facility] CHEM PANEL A/G Ratio 1.1 0.7 - 1.6 07/30/2018 [facility] DRUG SCREEN U Buffy Scr Nega tive *NA* (07/30/18 4:59 PM) Negative 07/30/2018 [facility] DRUG SCREEN U Amph Scr Nega tive *NA* (07/30/18 4:59 PM) Negative 07/30/2018 [facility] DRUG SCREEN U Benzodiaz Scr Nega tive *NA* (07/30/18 4:59 PM) Negative 07/30/2018 [facility] DRUG SCREEN U Cannab Scr Nega tive *NA* (07/30/18 4:59 PM) Negative 07/30/2018 [facility] DRUG SCREEN U Cocaine Scr Nega tive *NA* (07/30/18 4:59 PM) Negative 07/30/2018 [facility] DRUG SCREEN U Opiate Scr Nega tive *NA* (07/30/18 4:59 PM) Negative 07/30/2018 [facility] DRUG SCREEN U Phencyclidine Scr Nega tive *NA* (07/30/18 4:59 PM) Negative 07/30/2018 [facility] DRUG SCREEN UDS Note See Note (07/30/18 4:59 PM) 07/30/2018 [facility] [facility] HEMAT[facility]Y Basophils 0.6 0.0 - 1.0 07/30/2018 [facility] HEMATOLOGY Neutrophils # 5.0 1.5 - 8.1 07/30/2018 [facility] HEMATOLOGY Lymphocytes # 3.1 1.0 - 5.5 07/30/2018 [facility] HEMATOLOGY Monocytes # 0.3 0.0 - 0.8 07/30/2018 [facility] HEMATOLOGY Eosinophils # 0.1 0.0 - 0.5 07/30/2018 [facility] HEMATOLOGY Basophils # 0.1 0.0 - 0.2 07/30/2018 [facility] HEMATOLOGY Eosinophils 1.1 0.0 - 4.0 07/30/2018 [facility] HEMATOLOGY Monocytes 3.1 2.0 - 12.0 07/30/2018 [facility] HEMATOLOGY Lymphocytes 36.3 20.0 - 40.0 07/30/2018 [facility] HEMATOLOGY Segs 58.9 45.0 - 75.0 07/30/2018 [facility] HEMATOLOGY RDW 13.7 11.5 - 14.5 07/30/2018 [facility] HEMATOLOGY MCHC 33.0 32.0 - 36.0 07/30/2018 [facility] HEMATOLOGY MPV 7.5 7.4 - 10.4 07/30/2018 [facility] HEMATOLOGY Platelet 360 133 - 450 07/30/2018 [facility] HEMATOLOGY WBC 8.5 3.7 - 10.4 07/30/2018 [facility] HEMATOLOGY MCV 93.7 80.0 - 98.0 07/30/2018 [facility] HEMATOLOGY Hct 41.6 36.0 - 48.0 07/30/2018 [facility] HEMATOLOGY MCH 30.9 27.0 - 31.0 07/30/2018 [facility] HEMATOLOGY Hgb 13.7 12.0 - 16.0 07/30/2018 [facility] HEMATOLOGY RBC 4.44 4.20 - 5.40 07/30/2018 [facility] TOXICOLOGY Etoh (%) 0.346 07/30/2018 [facility] TOXICOLOGY Ethanol Lvl 346 07/30/2018 Result Comment: Critical Result(s) called to mainor kramer at _07/30/2018 17:43 by_[facility]. Read back OK. [facility] TOXICOLOGY Acetaminoph Lvl <2 (07/30/18 4:59 PM) 10 - 20 07/30/2018 [facility] TOXICOLOGY Salicylate Lvl 4.2 0.0 - 30.0 07/30/2018 [facility] CHEM PANEL eGFR 123 07/27/2018 Result Comment: The eGFR is calculated using the CKD-EPI formula. In most young, healthy individuals the eGFR will be >90 mL/min/1.73m2. The eGFR declines with age. An eGFR of 60-89 may be normal in some populations, particularly the elderly, for whom the CKD-EPI formula has not been extensively validated. Use of the eGFR is not recommended in the following populations:

Individuals with unstable creatinine concentrations, including patients and those with serious co-morbid conditions.

Patients with extremes in muscle mass or diet.

The data above are obtained from the National Kidney Disease Education Program (NKDEP) which additionally recommends that when the eGFR is used in patients with extremes of body mass index for purposes of drug dosing, the eGFR should be multiplied by the estimated BMI. [facility] CHEM PANEL Calcium Lvl 8.2 8.5 - 10.5 07/27/2018 [facility] CHEM PANEL CO2 26 24 - 32 07/27/2018 [facility] CHEM PANEL Chloride Lvl 108 95 - 109 07/27/2018 [facility] CHEM PANEL Potassium Lvl 3.6 3.5 - 5.1 07/27/2018 [facility] CHEM PANEL Sodium Lvl 141 135 - 145 07/27/2018 [facility] CHEM PANEL Glucose Lvl 101 70 - 99 07/27/2018 [facility] CHEM PANEL BUN 6 7 - 22 07/27/2018 [facility] CHEM PANEL Creatinine Lvl 0.59 0.50 - 1.40 07/27/2018 [facility] CHEM PANEL AGAP 10.6 10.0 - 20.0 07/27/2018 [facility] HEMATOLOGY Lymphocytes 17.3 20.0 - 40.0 07/27/2018 [facility] HEMATOLOGY Segs 68.6 45.0 - 75.0 07/27/2018 [facility] HEMATOLOGY Lymphocytes # 2.3 1.0 - 5.5 07/27/2018 [facility] HEMATOLOGY Monocytes # 1.8 0.0 - 0.8 07/27/2018 [facility] HEMATOLOGY Basophils 0.2 0.0 - 1.0 07/27/2018 [facility] HEMATOLOGY Neutrophils # 9.0 1.5 - 8.1 07/27/2018 [facility] HEMATOLOGY Monocytes 13.6 2.0 - 12.0 07/27/2018 [facility] HEMATOLOGY Eosinophils 0.3 0.0 - 4.0 07/27/2018 [facility] HEMATOLOGY MCHC 34.2 32.0 - 36.0 07/27/2018 [facility] HEMATOLOGY MCH 31.6 27.0 - 31.0 07/27/2018 [facility] HEMATOLOGY MPV 8.7 7.4 - 10.4 07/27/2018 [facility] HEMATOLOGY RDW 13.2 11.5 - 14.5 07/27/2018 [facility] HEMATOLOGY Platelet 244 133 - 450 07/27/2018 [facility] HEMATOLOGY MCV 92.4 80.0 - 98.0 07/27/2018 [facility] HEMATOLOGY WBC 13.1 3.7 - 10.4 07/27/2018 [facility] HEMATOLOGY Hct 37.3 36.0 - 48.0 07/27/2018 [facility] HEMATOLOGY RBC 4.03 4.20 - 5.40 07/27/2018 [facility] HEMATOLOGY Hgb 12.7 12.0 - 16.0 07/27/2018 [facility] URINE CHEM U Preg Negat jaime (07/26/18 8:34 PM) Negative 07/27/2018 [facility] BLOOD BANK RESULTS Antibody Scrn Negative (07/26/18 8:17 AM) 07/26/2018 [facility] BLOOD BANK RESULTS ABO/Rh A POS 07/26/2018 [facility] ELECTROLYTES AGAP 13.8 10.0 - 20.0 07/26/2018 [facility] ELECTROLYTES eGFR 120 07/26/2018 Result Comment: The eGFR is calculated using the CKD-EPI formula. In most young, healthy individuals the eGFR will be >90 mL/min/1.73m2. The eGFR declines with age. An eGFR of 60-89 may be normal in some populations, particularly the elderly, for whom the CKD-EPI formula has not been extensively validated. Use of the eGFR is not recommended in the following populations:

Individuals with unstable creatinine concentrations, including patients and those with serious co-morbid conditions.

Patients with extremes in muscle mass or diet.

The data above are obtained from the National Kidney Disease Education Program (NKDEP) which additionally recommends that when the eGFR is used in patients with extremes of body mass index for purposes of drug dosing, the eGFR should be multiplied by the estimated BMI. [facility] ELECTROLYTES Calcium Lvl 9.0 8.5 - 10.5 07/26/2018 [facility] ELECTROLYTES Potassium Lvl 3.8 3.5 - 5.1 07/26/2018 [facility] ELECTROLYTES Sodium Lvl 138 135 - 145 07/26/2018 [facility] ELECTROLYTES Chloride Lvl 107 95 - 109 07/26/2018 [facility] ELECTROLYTES CO2 21 24 - 32 07/26/2018 [facility] ELECTROLYTES Creatinine Lvl 0.6 5 0.50 - 1.40 07/26/2018 [facility] ELECTROLYTES BUN 7 7 - 22 07/26/2018 [facility] ELECTROLYTES Glucose Lvl 78 70 - 99 07/26/2018 [facility] HEMATOLOGY MCV 92.8 80.0 - 98.0 07/26/2018 [facility] HEMATOLOGY Hct 41.8 36.0 - 48.0 07/26/2018 [facility] HEMATOLOGY Platelet 226 133 - 450 07/26/2018 [facility] HEMATOLOGY RDW 13.4 11.5 - 14.5 07/26/2018 [facility] HEMATOLOGY MCHC 33.8 32.0 - 36.0 07/26/2018 [facility] HEMATOLOGY MCH 31.4 27.0 - 31.0 07/26/2018 [facility] HEMATOLOGY MPV 8.3 7.4 - 10.4 07/26/2018 [facility] HEMATOLOGY Hgb 14.1 12.0 - 16.0 07/26/2018 [facility] HEMATOLOGY WBC 5.6 3.7 - 10.4 07/26/2018 [facility] HEMATOLOGY RBC 4.50 4.20 - 5.40 07/26/2018 [facility] HEMATOLOGY Monocytes 14.5 2.0 - 12.0 07/26/2018 [facility] HEMATOLOGY Basophils 0.8 0.0 - 1.0 07/26/2018 [facility] HEMATOLOGY Eosinophils 1.9 0.0 - 4.0 07/26/2018 [facility] HEMATOLOGY Monocytes # 0.8 0.0 - 0.8 07/26/2018 [facility] HEMATOLOGY Neutrophils # 2.8 1.5 - 8.1 07/26/2018 [facility] HEMATOLOGY Lymphocytes # 1.9 1.0 - 5.5 07/26/2018 [facility] HEMATOLOGY Eosinophils # 0.1 0.0 - 0.5 07/26/2018 [facility] HEMATOLOGY Segs 49.7 45.0 - 75.0 07/26/2018 [facility] HEMATOLOGY Lymphocytes 33.1 20.0 - 40.0 07/26/2018 [facility] CHEM PANEL eGFR 113 05/04/2018 Result Comment: The eGFR is calculated using the CKD-EPI formula. In most young, healthy individuals the eGFR will be >90 mL/min/1.73m2. The eGFR declines with age. An eGFR of 60-89 may be normal in some populations, particularly the elderly, for whom the CKD-EPI formula has not been extensively validated. Use of the eGFR is not recommended in the following populations:

Individuals with unstable creatinine concentrations, including patients and those with serious co-morbid conditions.

Patients with extremes in muscle mass or diet.

The data above are obtained from the National Kidney Disease Education Program (NKDEP) which additionally recommends that when the eGFR is used in patients with extremes of body mass index for purposes of drug dosing, the eGFR should be multiplied by the estimated BMI. [facility] CHEM PANEL AGAP 13.9 10.0 - 20.0 05/04/2018 [facility] CHEM PANEL B/C Ratio 8 6 - 25 05/04/2018 [facility] CHEM PANEL Calcium Lvl 9.3 8.5 - 10.5 05/04/2018 [facility] CHEM PANEL Glucose Lvl 86 70 - 99 05/04/2018 [facility] CHEM PANEL BUN 6 7 - 22 05/04/2018 [facility] CHEM PANEL Chloride Lvl 103 95 - 109 05/04/2018 [facility] CHEM PANEL CO2 25 24 - 32 05/04/2018 [facility] CHEM PANEL Sodium Lvl 138 135 - 145 05/04/2018 [facility] CHEM PANEL Potassium Lvl 3.9 3.5 - 5.1 05/04/2018 [facility] CHEM PANEL Creatinine Lvl 0.72 0.50 - 1.40 05/04/2018 [facility] CHEM PANEL Alk Phos 94 39 - 136 05/04/2018 [facility] CHEM PANEL AST 30 0 - 37 05/04/2018 [facility] CHEM PANEL ALT 62 0 - 65 05/04/2018 [facility] CHEM PANEL A/G Ratio 1.1 0.7 - 1.6 05/04/2018 [facility] CHEM PANEL Bili Total 0.3 0.2 - 1.3 05/04/2018 [facility] CHEM PANEL Globulin 3.8 2.7 - 4.2 05/04/2018 [facility] CHEM PANEL Albumin Lvl 4.1 3.5 - 5.0 05/04/2018 [facility] CHEM PANEL Total Protein 7.9 6.4 - 8.4 05/04/2018 [facility] ENDOCRINOLOGY hCG Tot 6162 05/04/2018 [facility] HEMATOLOGY MCV 89.4 80.0 - 98.0 05/04/2018 [facility] HEMATOLOGY Hgb 14.3 12.0 - 16.0 05/04/2018 [facility] HEMATOLOGY Hct 42.3 36.0 - 48.0 05/04/2018 [facility] HEMATOLOGY RDW 14.2 11.5 - 14.5 05/04/2018 [facility] HEMATOLOGY Platelet 277 133 - 450 05/04/2018 [facility] HEMATOLOGY MCHC 33.9 32.0 - 36.0 05/04/2018 [facility] HEMATOLOGY MCH 30.3 27.0 - 31.0 05/04/2018 [facility] HEMATOLOGY MPV 7.7 7.4 - 10.4 05/04/2018 [facility] HEMATOLOGY WBC 10.4 3.7 - 10.4 05/04/2018 [facility] HEMATOLOGY RBC 4.73 4.20 - 5.40 05/04/2018 [facility] URINE AND STOOL UA Mucus None Seen (05/03/18 10:05 PM) None Seen 05/04/2018 [facility] URINE AND STOOL Micro? Performed (05/03/18 10:05 PM) 05/04/2018 [facility] URINE AND STOOL UA Bacteria Occasional /HPF None Seen /HPF 05/04/2018 [facility] URINE AND STOOL UA RBC 1-2 05/04/2018 [facility] URINE AND STOOL UA Urobilinogen 0.2 0.1 - 1.0 05/04/2018 [facility] URINE AND STOOL UA Bili Negative *NA* (05/03/18 10:05 PM) Negative 05/04/2018 [facility] URINE AND STOOL UA Blood Large *ABN* (05/03/18 10:05 PM) Negative 05/04/2018 [facility] URINE AND STOOL UA Sq Epi Occasional /LPF Few /LPF 05/04/2018 [facility] URINE AND STOOL UA WBC 3-5 /HPF None Seen /HPF 05/04/2018 [facility] URINE AND STOOL UA Protein Negative (05/03/18 10:05 PM) Negative 05/04/2018 [facility] URINE AND STOOL UA pH 8.0 5.0 - 8.0 05/04/2018 [facility] URINE AND STOOL UA Glucose Negative (05/03/18 10:05 PM) Negative 05/04/2018 [facility] URINE AND STOOL UA Turbidity Clear (05/03/18 10:05 PM) Clear 05/04/2018 [facility] URINE AND STOOL UA Spec Grav <=1.005 *NA* (05/03/18 10:05 PM) <=1.030 05/04/2018 [facility] URINE AND STOOL UA Ketones Negative *NA* (05/03/18 10:05 PM) Negative 05/04/2018 [facility] URINE AND STOOL UA Nitrite Negative (05/03/18 10:05 PM)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 aggressive osseous lesions. Normal glenohumeral and acromioclavicular joint alignment. The visualized right lung is clear. Regional soft tissues are unremarkable. If there is further concern, followup radiographs or MRI of the shoulder may be performed for complete assessment. IMPRESSION: 1. No radiographic evidence for acute os seous injury of the right shoulder. Clinical Indication: - trauma , right elbow injury Comparison: None FINDINGS: 3 views of the right elbow are performed . No acute fracture or dislocation. No aggressive osseous lesions. No evidence for a joint effusion. Regional soft tissues are unremarkable. No soft tissue gas or radiopaque foreign bodies. If there is continued clinical concern, follow-up radiographs or magnetic resonance imaging may be beneficial. Impression: 1. No radiographic evidence for acute os seous injury of the right elbow. : [id number] 10/31/2017 [facility] Shoulder series DX Clinical In dication: - trauma , right shoulder injury Comparison: None FINDINGS: 3 views of the right shoulder are submit aryan. No acute fracture or dislocation. No aggressive osseous lesions. Normal glenohumeral and acromioclavicular joint alignment. The visualized right lung is clear. Regional soft tissues are unremarkable. If there is further concern, followup radiographs or MRI of the shoulder may be performed for complete assessment. IMPRESSION: 1. No radiographic evidence for acute os seous injury of the right shoulder. Clinical Indication: - trauma , right elbow injury Comparison: None FINDINGS: 3 views of the right elbow are performed . No acute fracture or dislocation. No aggressive osseous lesions. No evidence for a joint effusion. Regional soft tissues are unremarkable. No soft tissue gas or radiopaque foreign bodies. If there is continued clinical concern, follow-up radiographs or magnetic resonance imaging may be beneficial. Impression: 1. No radiographic evidence for acute os seous injury of the right elbow. SL: [id number] 10/31/2017 [facility] Brain wo contrast CT Clinical Indication: - head trauma Comparison: None TECHNIQUE: CT images were obtained from the foramen magnum to the vertex without the use of intravenous contrast on a multidetector CT. Coronal and sagittal reconstructions were obtained. CT radiation dose DLP: 901.26 mGy-cm FINDINGS: BRAIN PARENCHYMA: There are normal pitts-white interfaces, sulci and gyri. There are no focal mass lesions on this noncontrast head CT. There is no mass effect, midline shift or edema. There are no intra-axial or extra-axial fluid collections, intraventricular or intraparenchymal hemorrhage. The pineal, sellar, brainstem, cerebellum and skull base regions appear unremarkable. VENTRICLES: The lateral ventricles, third and fourth ventricles appear unremarkable. The basilar cisterns are normal. ORBITS, MASTOIDS AND PARANASAL SINUSES: The visualized orbits are unremarkable. The paranasal sinuses are unremarkable. The mastoid air cells are clear. SKULL: There are no osseous abnormalities. There is no soft tissue swelling noted. If there is further concern for intracranial pathology or acute stroke, MRI of the brain may be performed for complete assessment. IMPRESSION: Unremarkable noncontrast head CT with no mass, hemorrhage or subacute stroke. SL: [id number] 10/31/2017 [facility] Spine cervical wo contrast CT Clinical Indication: - trauma , neck injury Comparison: None Technique: Multi-detector CT imaging of the cervical spine is performed. Coronal and sagittal reconstructions were obtained. CT Radiation Dose DLP 682.82 mGy-cm FINDINGS: ALIGNMENT AND GENERAL ASSESSMENT: Straightening of normal cervical lordosis may be positional or secondary to muscular spasm. Normal alignment of the cervical spine. Normal vertebral body height at all levels. No fractures are seen. Craniocervical and atlantodental alignment appears unremarkable. DISK SPACES AND SOFT TISSUES: Disc spaces are preserved. No CT evidence for high-grade spinal canal stenosis. MRI is the gold standard to assess for disk disease. Prevertebral soft tissues are within normal limits. VISUALIZED LUNG APICES: Clear. CT myelogram or MRI of the cervical spine may be performed, if there is further concern. IMPRESSION: 1. No CT evidence for acute cervical spi ne fracture or traumatic subluxation. 2. Straightening of normal cervical lord osis may be positional or secondary to muscular spasm. SL: [id number] 10/31/2017 [facility] Consultation Notes No Data Provided for This Section Discharge Summaries No Data Provided for This Section History and Physicals No Data Provided for This Section Vital Signs Vital Sign Value Date Comments Source Temperature Oral (F) 97.5 F 12/12/2018 [facility] Heart Rate 94 12/12/2018 [facility] Respitory Rate 20 12/12/2018 [facility] Systolic (mm Hg) 105 12/12/2018 [facility] Diastolic (mm Hg) 65 12/12/2018 [facility] Temperature Oral (F) 97.6 F 12/12/2018 [facility] Heart Rate 86 12/12/2018 [facility] Systolic (mm Hg) 110 12/12/2018 [facility] Diastolic (mm Hg) 71 12/12/2018 [facility] Respitory Rate 20 12/12/2018 [facility] Temperature Oral (F) 98.3 F 12/12/2018 [facility] Respitory Rate 18 12/12/2018 [facility] Systolic (mm Hg) 109 12/12/2018 [facility] Diastolic (mm Hg) 70 12/12/2018 [facility] Heart Rate 70 12/11/2018 [facility] Height 157.4 cm 12/09/2018 [facility] Weight 59.09 12/09/2018 [facility] BMI Calculated 23.85 12/09/2018 [facility] Height 157.48 cm 12/09/2018 [facility] BMI Calculated 23.83 12/09/2018 [facility] Weight 59.091 12/09/2018 [facility] Heart Rate 87 12/05/2018 [facility] Respitory Rate 18 12/05/2018 [facility] Systolic (mm Hg) 118 12/05/2018 [facility] Diastolic (mm Hg) 71 12/05/2018 [facility] Respitory Rate 19 12/05/2018 [facility] Heart Rate 100 12/05/2018 [facility] Systolic (mm Hg) 112 12/05/2018 [facility] Diastolic (mm Hg) 65 12/05/2018 [facility] Heart Rate 78 12/05/2018 [facility] Respitory Rate 20 12/05/2018 [facility] Height 167.64 cm 12/05/2018 [facility] BMI Calculated 23.45 12/05/2018 [facility] Weight 65.909 12/05/2018 [facility] Temperature Oral (F) 98.5 F 10/18/2018 [facility] Heart Rate 80 10/18/2018 [facility] Systolic (mm Hg) 120 10/18/2018 [facility] Diastolic (mm Hg) 76 10/18/2018 [facility] Systolic (mm Hg) 118 10/18/2018 [facility] Diastolic (mm Hg) 80 10/18/2018 [facility] Heart Rate 75 10/18/2018 [facility] Temperature Oral (F) 98 F 10/18/2018 [facility] Systolic (mm Hg) 120 10/18/2018 [facility] Diastolic (mm Hg) 81 10/18/2018 [facility] Heart Rate 88 10/18/2018 [facility] Respitory Rate 16 10/18/2018 [facility] Temperature Oral (F) 97.6 F 10/18/2018 [facility] Height 157.48 cm 10/18/2018 [facility] BMI Calculated 21.99 10/18/2018 [facility] Weight 54.545 10/18/2018 [facility] Systolic (mm Hg) 108 09/25/2018 [facility] Diastolic (mm Hg) 64 09/25/2018 [facility] Temperature Oral (F) 98.1 F 09/25/2018 [facility] Respitory Rate 16 09/25/2018 [facility] Heart Rate 90 09/25/2018 [facility] Respitory Rate 16 09/25/2018 [facility] Systolic (mm Hg) 105 09/25/2018 [facility] Diastolic (mm Hg) 64 09/25/2018 [facility] Heart Rate 94 09/25/2018 [facility] Temperature Oral (F) 98.0 F 09/25/2018 [facility] Respitory Rate 20 09/25/2018 [facility] Systolic (mm Hg) 118 09/25/2018 [facility] Diastolic (mm Hg) 78 09/25/2018 [facility] Heart Rate 114 09/25/2018 [facility] BMI Calculated 21.99 09/25/2018 [facility] Weight 54.545 09/25/2018 [facility] Height 157.48 cm 09/25/2018 [facility] Temperature Oral (F) 99.7 F 09/25/2018 [facility] Heart Rate 93 09/09/2018 [facility] Systolic (mm Hg) 107 09/09/2018 [facility] Diastolic (mm Hg) 71 09/09/2018 [facility] Respitory Rate 18 09/09/2018 [facility] Temperature Oral (F) 98.2 F 09/09/2018 [facility] BMI Calculated 21.3 09/09/2018 [facility] Weight 54.545 09/09/2018 [facility] Height 160.02 cm 09/09/2018 [facility] Temperature Oral (F) 98.2 F 09/09/2018 [facility] Respitory Rate 18 09/09/2018 [facility] Heart Rate 88 09/09/2018 [facility] Systolic (mm Hg) 138 09/09/2018 [facility] Diastolic (mm Hg) 80 09/09/2018 [facility] Respitory Rate 18 08/24/2018 [facility] Systolic (mm Hg) 108 08/24/2018 [facility] Diastolic (mm Hg) 76 08/24/2018 [facility] Respitory Rate 16 08/24/2018 [facility] Systolic (mm Hg) 101 08/24/2018 [facility] Diastolic (mm Hg) 66 08/24/2018 [facility] Respitory Rate 17 08/24/2018 [facility] Systolic (mm Hg) 107 08/24/2018 [facility] Diastolic (mm Hg) 72 08/24/2018 [facility] Weight 61.364 08/24/2018 [facility] Height 165.1 cm 08/24/2018 [facility] BMI Calculated 22.51 08/24/2018 [facility] Temperature Oral (F) 98.5 F 08/24/2018 [facility] Heart Rate 106 08/24/2018 [facility] Systolic (mm Hg) 119 08/02/2018 [facility] Diastolic (mm Hg) 67 08/02/2018 [facility] Respitory Rate 18 08/02/2018 [facility] Temperature Oral (F) 98.5 F 08/02/2018 [facility] Temperature Oral (F) 98.4 F 08/02/2018 [facility] Systolic (mm Hg) 117 08/02/2018 [facility] Diastolic (mm Hg) 73 08/02/2018 [facility] Respitory Rate 20 08/02/2018 [facility] Systolic (mm Hg) 106 08/02/2018 [facility] Diastolic (mm Hg) 68 08/02/2018 [facility] Temperature Oral (F) 99 F 08/02/2018 [facility] Respitory Rate 18 08/02/2018 [facility] Weight 66.818 08/02/2018 [facility] BMI Calculated 23.07 08/02/2018 [facility] Heart Rate 104 08/02/2018 [facility] Height 170.18 cm 08/02/2018 [facility] Heart Rate 80 07/31/2018 [facility] Respitory Rate 16 07/31/2018 [facility] Systolic (mm Hg) 122 07/31/2018 [facility] Diastolic (mm Hg) 68 07/31/2018 [facility] Temperature Oral (F) 98.6 F 07/31/2018 [facility] Systolic (mm Hg) 119 07/31/2018 [facility] Diastolic (mm Hg) 64 07/31/2018 [facility] Heart Rate 84 07/31/2018 [facility] Respitory Rate 17 07/31/2018 [facility] Respitory Rate 16 07/31/2018 [facility] Systolic (mm Hg) 120 07/31/2018 [facility] Diastolic (mm Hg) 68 07/31/2018 [facility] Heart Rate 72 07/31/2018 [facility] Weight 81.818 07/30/2018 [facility] Respitory Rate 16 07/27/2018 [facility] Systolic (mm Hg) 96 07/27/2018 [facility] Diastolic (mm Hg) 59 07/27/2018 [facility] Heart Rate 67 07/27/2018 [facility] Temperature Oral (F) 98.4 F 07/27/2018 [facility] Temperature Oral (F) 98.8 F 07/27/2018 [facility] Respitory Rate 16 07/27/2018 [facility] Heart Rate 73 07/27/2018 [facility] Systolic (mm Hg) 100 07/27/2018 [facility] Diastolic (mm Hg) 62 07/27/2018 [facility] Systolic (mm Hg) 109 07/27/2018 [facility] Diastolic (mm Hg) 64 07/27/2018 [facility] Respitory Rate 18 07/27/2018 [facility] Heart Rate 82 07/27/2018 [facility] Temperature Oral (F) 98.9 F 07/27/2018 [facility] Weight 74.318 07/26/2018 [facility] BMI Calculated 29.02 07/26/2018 [facility] Height 160.02 cm 07/26/2018 [facility] BMI Calculated 0.65 07/26/2018 [facility] Weight 1.676 07/26/2018 [facility] Height 160.02 cm 07/21/2018 [facility] Systolic (mm Hg) 100 07/13/2018 [facility] Diastolic (mm Hg) 56 07/13/2018 [facility] Heart Rate 89 07/13/2018 [facility] Respitory Rate 17 07/13/2018 [facility] Weight 63.636 07/13/2018 [facility] BMI Calculated 24.08 07/13/2018 [facility] Respitory Rate 20 07/13/2018 [facility] Systolic (mm Hg) 104 07/13/2018 [facility] Diastolic (mm Hg) 90 07/13/2018 [facility] Heart Rate 121 07/13/2018 [facility] Temperature Oral (F) 98.2 F 07/13/2018 [facility] Height 162.56 cm 07/13/2018 [facility] Heart Rate 85 05/04/2018 [facility] Systolic (mm Hg) 115 05/04/2018 [facility] Diastolic (mm Hg) 74 05/04/2018 [facility] Respitory Rate 16 05/04/2018 [facility] Temperature Oral (F) 98.5 F 05/04/2018 [facility] Temperature Oral (F) 98.6 F 05/04/2018 [facility] Weight 65.909 05/04/2018 [facility] BMI Calculated 26.58 05/04/2018 [facility] Height 157.48 cm 05/04/2018 [facility] Systolic (mm Hg) 129 05/04/2018 [facility] Diastolic (mm Hg) 84 05/04/2018 [facility] Heart Rate 85 05/04/2018 [facility] Respitory Rate 17 05/04/2018 [facility] Systolic (mm Hg) 120 11/01/2017 [facility] Diastolic (mm Hg) 75 11/01/2017 [facility] Respitory Rate 18 11/01/2017 [facility] Temperature Oral (F) 98.2 F 11/01/2017 [facility] Heart Rate 66 11/01/2017 [facility] Systolic (mm Hg) 129 11/01/2017 [facility] Diastolic (mm Hg) 85 11/01/2017 [facility] Respitory Rate 16 11/01/2017 [facility] Heart Rate 68 11/01/2017 [facility] Temperature Oral (F) 98.1 F 11/01/2017 [facility] Systolic (mm Hg) 134 11/01/2017 [facility] Diastolic (mm Hg) 89 11/01/2017 [facility] Respitory Rate 18 11/01/2017 [facility] Temperature Oral (F) 98.2 F 11/01/2017 [facility] Heart Rate 62 11/01/2017 [facility] Heart Rate 93 08/08/2017 [facility] Temperature Oral (F) 98.4 F 08/08/2017 [facility] Respitory Rate 20 08/08/2017 [facility] Systolic (mm Hg) 112 08/08/2017 [facility] Diastolic (mm Hg) 72 08/08/2017 [facility] Heart Rate 96 08/08/2017 [facility] Temperature Oral (F) 97.6 F 08/08/2017 [facility] Systolic (mm Hg) 110 08/08/2017 [facility] Diastolic (mm Hg) 72 08/08/2017 [facility] Respitory Rate 22 08/08/2017 [facility] Respitory Rate 16 08/07/2017 [facility] Heart Rate 114 08/07/2017 [facility] Temperature Oral (F) 98.6 F 08/07/2017 [facility] Systolic (mm Hg) 117 08/07/2017 [facility] Diastolic (mm Hg) 63 08/07/2017 [facility] BMI Calculated 25.84 08/07/2017 [facility] Weight 64.091 08/07/2017 [facility] Height 157.48 cm 08/07/2017 [facility] Encounters Location Location Details Encounter Type Encounter Number Reason For Visit Attending Provider ADM Date DC Date Status Source [facility] Emergency [id number] Keturah Chávez 08/07/2017 08/08/2017 [facility] Emergency [id number] Chuckshantelle Brown 10/31/2017 11/01/2017 [facility] Emergency [id number] Meryc Star 05/04/2018 05/04/2018 [facility] [id number] 00 Martha Wisam 06/12/2018 06/13/2018 [facility] Emergency [id number] KimberMerleneDerek Jorgenir Billy 07/14/1907/13/2018 [facility] [id number] Marietta Barraza 07/26/2018 07/27/2018 [facility] Emergency [id number] Maurisiodelbert Celeste 07/30/2018 07/31/2018 [facility] Emergency [id number] Bobby Hunter 08/02/2018 08/02/2018 [facility] Emergency [id number] Avis Alcantara 019 08/24/2018 [facility] Emergency [id number] Preston Beard 09/09/2018 09/09/2018 [facility] Emergency [id number] Danish Caruso 09/25/2018 09/25/2018 [facility] Emergency [id number] Conner Finley 10/18/2018 10/18/2018 [facility] Emergency [id number] Luc Demarco 12/05/2018 12/05/2018 [facility] Inpatient [id number] Minerva Damian 12/10/1912/12/2018 [facility] Procedures Procedure Code Date Perfomer Comments Source Dilatation and curettage<sup>1</sup> [id number] ~2013 [facility] Assessment and Plan Assessment and Plan Date Source Extracted from:Title: General Admission H&P * Author: Perlita Mccurdy MD Date: 12/09/18 Impression and Plan Diagnosis Severe alcohol intoxication with increased risk for respiratory depression and/or coma Chronic alcohol dependence Chronic anxiety/depression/history of suicidal ideation Hypokalemia. Orders The patient is given lorazepam and Haldol for sedation due to extreme combativeness on arrival. She will be hydrated with D5 LR with 30 mEq of potassium chloride at 150 cc an hour after being administered thiamine 100 mg IV piggyback. she will be monitored on telemetry monitoring for signs of respiratory depression. Ativan and Haldol may be given as needed for agitation. 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 says she previously took [place] for her prior procedures and requests norco for pain control. tolerating reg diet, + flatus, voiding freely, minimally ambulating. OBJECTIVE 24hr Labs 07/27 0327 Glucose Lvl 101 H BUN 6 L Creatinine Lvl 0.59 Sodium Lvl 141 Potassium Lvl 3.6 Chloride Lvl 108 CO2 26 AGAP 10.6 Calcium Lvl 8.2 L eGFR 123 WBC 13.1 H RBC 4.03 L Hgb 12.7 Hct 37.3 MCV 92.4 MCH 31.6 H MCHC 34.2 RDW 13.2 Platelet 244 MPV 8.7 Segs 68.6 Monocytes 13.6 H Lymphocytes 17.3 L Eosinophils 0.3 Basophils 0.2 Neutrophils # 9.0 H Lymphocytes # 2.3 Monocytes # 1.8 H 07/27 0138 POC Performing Locatio See Note Glucose POC 138 H 07/26 2033 U Preg Negative 07/26 816 ABO/Rh A POS Antibody Scrn Negative Glucose Lvl 78 BUN 7 Creatinine Lvl 0.65 Sodium Lvl 138 Potassium Lvl 3.8 Chloride Lvl 107 CO2 21 L AGAP 13.8 Calcium Lvl 9.0 eGFR 120 WBC 5.6 RBC 4.50 Hgb 14.1 Hct 41.8 MCV 92.8 MCH 31.4 H MCHC 33.8 RDW 13.4 Platelet 226 MPV 8.3 Segs 49.7 Monocytes 14.5 H Lymphocytes 33.1 Eosinophils 1.9 Basophils 0.8 Neutrophils # 2.8 Lymphocytes # 1.9 Monocytes # 0.8 Eosinophils # 0.1 Campos still necessary (Yes/No): Line still necessary (Yes/No): Vitals Tmp(F) Pulse BP RR SpO2 FIO2 07/27 03:39 98.8 73 100/62 1 6 96 --- 07/26 23:37 98.9 82 109/64 1 8 96 --- 07/26 19:49 98.9 103 109/66 18 96 --- 07/26 16:50 98.9 77 101/57 1 8 94 --- 07/26 16:42 ---- 80 ----- 14 96 --- 24 Hr Tmax: 98.9F (37.17c) at 07/26 23:3 7 Vital Signs are the last 5 in the past 48 hours. Date Wt(kg) Wt(lb) Ht(cm) Ht(in) Method 07/26 74.32 163.50 160.02 63.00 Tomasa/Sta 07/21 160.02 63.00 07/26 (initial) 1.68 3.69 Measured 07/21 160.02 63.00 Stated I&O Record In Out Bal 07/26 24hr Tot 2465 235 2230 07/25 24hr Tot 0 0 0 Medications (32) Active Scheduled Meds (6): 07/26/18 clonazePAM 1 mg PO Bedtime 07/27/18 famotidine (Pepcid 40 mg oral t ablet) 40 mg PO Daily 07/26/18 gabapentin (gabapentin 300 mg o ral capsule) 300 mg PO Q8H 07/26/18 ibuprofen (Motrin) 600 mg PO Q6 H 07/27/18 lamoTRIgine (LaMICtal) 100 mg P O BID 07/26/18 polyethylene glycol 3350 (Emelyn ax) 17 gm PO BID Unscheduled Meds (4): 07/26/18 acetaminophen 1,000 mg PO PRE O P 07/26/18 aprepitant (Emend) 40 mg PO PRE OP 07/26/18 celecoxib (CeleBREX) 200 mg PO PRE OP 07/26/18 scopolamine (scopolamine 1.5 mg transdermal film) 1 patch TOP PRE OP PRN Meds (6): 07/27/18 acetaminophen-hydrocodone (Norc o 5/325 oral tablet) 1 tab PO Q6H 07/26/18 calcium carbonate (Tums) 500 mg CHEW TID 07/26/18 diphenhydrAMINE (Benadryl) 25 m g PO Bedtime 07/26/18 melatonin 9 mg PO Bedtime 07/26/18 ondansetron (Zofran) 4 mg IVP Q 8H 07/26/18 tramadol (tramadol 50 mg oral t ablet) 50 mg PO Q4H One Time Meds (16): 07/26/18 (not done) bupivacaine liposom e (Exparel) 20 mL InFILtration(local) ONCE (Completed) dexamethasone (dexamethasone (ANES)) IV ONCE (Completed) dexmedetomidine (dexmedetomidine (ANES)) IV ONCE (Completed) fentaNYL (fentaNYL (ANES)) IV ONCE (Completed) glycopyrrolate (glycopyrrolate (ANES)) IV ONCE (Completed) ketAMINE (ketAMINE (ANES)) IV ONCE (Completed) ketOROLAC (ketOROLAC (ANES)) IV ONCE (Completed) lidocaine (lidocaine (ANES)) IV ONCE 07/26/18 (Completed) methocarbamol (Gregg axin) 1,000 mg PO ONCE (Completed) midazolam (midazolam (ANES)) IV ONCE (Completed) neostigmine (neostigmine (ANES)) IV ONCE (Completed) ondansetron (ondansetron (ANES)) IV ONCE (Completed) phenylephrine (phenylephrine (ANES)) IV ONCE (Completed) promethazine (promethazine (ANES)) IV ONCE (Completed) propofol (propofol (ANES)) IV ONCE (Completed) rocuronium (rocuronium (ANES)) IV ONCE Continuous Infusions: None ASSESSMENT and EXAM Gen: NAD Resp: breathing nonlabored Abd: soft, appropriately TTP, no guarding, no rebound Extr: no c/c/e PLAN and TREATMENT 32 yo P0 sp RA myomectomy ,hysteroscopy D&C 2/2 uterine fibroid and heavy menstrual bleeding, doing well. *POD#1: -AFVSS. -Pain: Motrin/Gabapentin scheduled, Tram adol prn. Pt reports pain poorly controlled- will add [place] 5-325 with expectation that she will not be discharged with the regimen. -GI: bee reg diet -: voiding -Hb 14> EBL 30> 12.7 -ppx: SCDs dispo: anticipate D/C home today Bette Schneider MD Resident Physician | PGY4 Department of Obstetrics, Gynecology and Reproductive Sciences [facility] Addendum by Bette Schneider MD on 07/27/2018 09:46 dictation no [id number] Extracted from:Title: Clinical Document Author: Marietta Barraza MD Date: 07/26/18 Obstetrics and Gynecology H&P CC :presenting for scheduled surgery History of Present Illness The patient is a w history of uterine fibroids and epilepsy presenting for RA myomectomy, Hscope, and polypectomy 2/2 to symptoms of menorrhagia, dysmenorrhea, and pelvic pain. She also has a history of recurrent loss and desires . Ultrasound on 06/2018 reviewed in care 4 which showed 5 cm intramural/submucosal fibroid and endometrial polyp. Review of Systems Constitutional Symptoms: no fever, no weight loss, no weight gain, no fatigue, no malaise Eyes: no diplopia, no blurred vision, no redness, no discharge, no loss of vision Ears, Nose, Mouth, Throat: no dysphagia, no odynophagia, no otalgia, no deafness, no rhinorrhea Cardiovascular: no chest pain, no SOB, no MALAVE, no orthopnea, no PND, exercise tolerated, no palpitations Respiratory: same as CVS, no cough, no hemoptysis Gastrointestinal: no NVD, no BPR, no dark stool, no constipation, no abdominal pain Genitourinary: no dysuria, no frequency, no urgency, no nocturia, no incontinence Musculoskeletal: no arthralgia, no myalgia, no stiffness Integumentary: (skin and/or breast): no rash, no hives, no breast pain, no mass, no nipple dc Neurological: no weakness, no headache, no seizure, no dizziness, no tingling, no numbness Psychiatric: no anxiety, no depression, no insomnia Endocrine: no polyuria, no polydipsia, no fatigue, no weight loss, no weight gain, no cold or heat intolerance, no palpitations Hematologic/Lymphatic: no bleeding, no bruising, no edema, no lumps (axilla groin neck) Allergic/Immunologic: no rash, no allergies, no fever, no chills OB History Menstrual History. age at menarche was 14. LMP. the last menstrual period was 07/03/18. Recent menstrual periods:. excessive bleeding (menorrhagia). No bleeding between periods No history of abnormal menstrual frequency Periods do not require bed rest cycle intervals have been regular. The duration of her recent periods has been regular. Gynecological Problems. dysmenorrhea.no dyspareunia.patient has no history of sexually transmitted infection.no history of pelvic inflammatory disease. Patient does not have a history of a positive pap smear. pap neg 04/2018 Allergies - Allergies list reconciled and reviewed. 1. Penicillins Current Meds medication list reconciled and reviewed 1. LaMICtal 100 MG Oral Tablet; TAKE 1 TABLET TWICE DAILY; Therapy: [id number] to Recorded Past Medical History 1. History of Epilepsy (345.90) (G40.909) Surgical History 1. No history of surgery Family History 1. Family history of cardiac disorder (V17.49) (Z82.49) : Mother 2. Family history of chronic obstructive pulmonary disease (V17.6) (Z82.5) : Father 3. Family history of essential hypertension (V17.49) (Z82.49) : Mother, Father 4. Family history of Type 2 diabetes mellitus with other kidney complication : Mother Social History Current every day smoker (305.1) (F17.200) History of Current every day smoker (305.1) (F17.200) Denies alcohol consumption (V49.89) (Z78.9) Does not use illicit drugs (V49.89) (Z78.9) Exercises occasionally (V49.89) (Z78.9) Occasional caffeine consumption PE: Vitals: see EMR CVD:RRR no m/r/g Pulm: CTA Abdomen: non-distended,non-tender to palpation, normoactive bowel sounds Pelvic: deferred until surgery Labs Hct: 42.3 % (05/03/18 22:05:00) Hgb: 14.3 g/dL (05/03/18 22:05:00) MCH: 30.3 pg (05/03/18:05:00) MCHC: 33.9 g/dL (05/03/18:05:00) MCV: 89.4 fL (05/03/18:05:00) MPV: 7.7 fL (05/03/18:05:00) Platelet: 277 K/CMM (05/03/18:05:00) RBC: 4.73 M/CMM (05/03/18:05:00) RDW: 14.2 % (05/03/18:05:00) WBC: 10.4 K/CMM (05/03/18 22:05:00) AGAP: 13.9 mEq/L (05/03/18:05:00) Chloride Lvl: 103 mEq/L (05/03/18:05:00) CO2: 25 mEq/L (05/03/18:05:00) Potassium Lvl: 3.9 mEq/L (05/03/18:05:00) Sodium Lvl: 138 mEq/L (05/03/18 22:05:00) A/G Ratio: 1.1 (05/03/18:05:00) Albumin Lvl: 4.1 g/dL (05/03/18:05:00) Alk Phos: 94 unit/L (05/03/18 22:05:00) ALT: 62 unit/L (05/03/18 22:05:00) AST: 30 unit/L (05/03/18 22:05:00) B/C Ratio: 8 (05/03/18 22:05:00) Bili Total: 0.3 mg/dL (05/03/18 22:05:00) BUN: 6 mg/dL Low (05/03/18 22:05:00) Calcium Lvl: 9.3 mg/dL (05/03/18 22:05:00) Creatinine Lvl: 0.72 mg/dL (05/03/18 22:05:00) eGFR: 113 mL/min/1.73m2 (05/03/18 22:05:00) Globulin: 3.8 g/dL (05/03/18 22:05:00) Glucose Lvl: 86 mg/dL (05/03/18 22:05:00) Total Protein: 7.9 g/dL (05/03/18 22:05:00) Imaging Technique: Transabdominal Transvaginal Pitts scale and color doppler with limited spectral doppler imaging of the uterus and ovaries. Findings: The uterus measures 9.0 7.6 x 6.8 cm. The endometrial stripe measures 1.2 cm. There appears to be a 6 mm endometrial polyp. Fundal intramural 5 cm fibroid. The right ovary measures 3.6 x 1.4 x 1.2 cm. There is normal doppler flow. The left ovary measures 3.8 x 2.1 x 2.2 cm. There is normal doppler flow. There is small free fluid. IMPRESSION: There appears to be a 6 mm endometrial polyp. Consider hysterosonography for further evaluation. Large intramural fundal fibroid measures 5 cm. A/P : The patient is a 32 yo w history of uterine fibroids and epilepsy presenting for RA myomectomy, Hscope, and polypectomy 2/2 to symptoms of menorrhagia, dysmenorrhea, and pelvic pain, and recurrent loss. 1. Menorrhagia and Dysmenorrhea -2/2 Uterine Fibroids and endometrial po lyp - TVUS- 5 cm intramural fundal fibroid, and 6mm endometrial polyp Hgb- 14, pap neg 04/2018 - patent desires removal of her fibroid for her symptoms and also for fertility. She was counseled about planned procedure of robotic assisted myomectomy, and hysteroscopic removal of endometrial polyp. She was counseled on risk as bleeding, infection, need for exlap, injury to bladder, bowel, ureters. Hysteroscopic complications perforation of uterus, fluid overload need for two step procedure with size of fibroid. - she was also counseled about recommen dation for deferring for 6 months and need for delivery by c/section. Patient understands her risk and desires to proceed Dispo: admit for scheduled surgery Guillermo Harris M.D. | #[id number] Resident Physician | PGY 2 Department of Obstetrics, Gynecology and Reproductive Sciences [facility] 07/27/2018 [facility] Plan of Care No Data Provided for This Section Social History Social History Date Source Social History TypeResponse Alcohol Current, Type Beer, Wine, Liquor. Frequency: Daily. Previous treatment: Alcoholics Anonymous. Alcohol use interferes with work or home: Yes. Drinks more than intended: Yes. Ready to change: Yes.1 Substance Abuse Use: Past. Amount: tried marijuana "many years ago". Smoking Status Current every day smoker; Type: Cigarettes; Lives with someone who smokes; Cigarette Smoking Last 365 Days Yes; Reg Smoking Cessation Counseling Yes; Other Tobacco Frequency 1/2 PPD x 10 years; entered on: 12/09/18 1currently living in sober living [facility] but today last day of 12/05/2018 [facility] Social History TypeResponse Substance Abuse Use: Past. Amount: tried marijuana "many years ago". Alcohol Past, Frequency: Daily. Last use: no drinks since Jan 2018, former alcoholic. Stopped age 32 Years. Previous treatment: Alcoholics Anonymous. Smoking Status Current every day smoker; Type: Cigarettes; Lives with someone who smokes; Cigarette Smoking Last 365 Days Yes; Reg Smoking Cessation Counseling Yes; Other Tobacco Frequency 1/2 PPD x 10 years; entered on: 07/26/18 07/26/2018 [facility] Social History TypeResponse Substance Abuse Use: Past. Amount: tried marijuana "many years ago". Alcohol Past, Frequency: Daily. Stopped age 32 Years. Previous treatment: Alcoholics Anonymous. Smoking Status Current every day smoker; Type: Cigarettes; Lives with someone who smokes; Cigarette Smoking Last 365 Days Yes; Reg Smoking Cessation Counseling Yes; Other Tobacco Frequency 1/2 PPD x 10 years; entered on: 08/01/18 07/26/2018 [facility] Social History TypeResponse Smoking Status Current every day smoker; Type: Cigarettes; Exposure to Tobacco Smoke None; Cigarette Smoking Last 365 Days Yes; Reg Smoking Cessation Counseling Yes [facility]: [facility]31[facility] TypeResponse Smoking Status Current every day smoker; Type: Cigarettes; Exposure to Tobacco Smoke None; Cigarette Smoking Last 365 Days Yes; Reg Smoking Cessation Counseling Yes entered on: 10/31/17 10/31/2017 [facility] Family History No Data Provided for This Section Advance Directives No Data Provided for This Section Functional Status No Data Provided for This Section
--- OUTSIDE RECORDS SUMMARY | 2019-10-27 09:40 | XMS REPORT | Continuity of Care Document ---
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 1 mg, PO, Daily, 0 Refill(s) Isaura Wilde gabapentin 300 MG Oral Capsule 2018-07-26 21:00:00 No Notes: (Same as: Neurontin) Isaura Wilde Benadryl 2018-07-26 20:18:00 No Notes: (Fabio e as: Benadryl) Isaura Wilde tramadol hydrochloride 50 MG Oral Tablet 2018-07-26 20:17:00 No Notes: Not to exceed 400mg/day. (Same As: Ultram) Isaura Wilde Zofran 2018-07-26 20:16:00 No Notes: (Same as: Zofran) MEDICATION WASTE Product Size: 4 mg Product Wasted: ___ mg Isaura Wilde Tramadol 2018-07-26 20:14:00 No 100 mg, Route: PO, Drug form: TAB, Q4H, Dosing Weight 1.676, kg, PRN Pain Score 6-10, Start date: 07/26/18 15:14:00 CDT, Duration: 30 day, Stop date: 08/25/18 15:13:00 CDT Isaura Wilde Robaxin 2018-07-26 19:39:00 No 1,000 mg, Route: PO, ONCE, Dosing Weight 1.676, kg, Start date: 07/26/18 14:39:00 CDT, Stop date: 07/26/18 14:39:00 CDT [facility] promethazine (ANES) 2018-07-26 19:12:00 No Route: IV, Drug form: INJ, ONCE, Stop date: 07/26/18 14:12:00 CDT [facility] glycopyrrolate (ANES) 2018-07-26 19:04:00 No Route: IV, Drug form: INJ, ONCE, Stop date: 07/26/18 14:04:00 CDT [facility] neostigmine (ANES) 2018-07-26 19:04:00 No Route: IV, Drug form: INJ, ONCE, Stop date: 07/26/18 14:04:00 CDT cielotriny Wilde Ondansetron 2018-07-26 18:56:00 No Notes: (Same as: Zofran) MEDICATION WASTE Product Size: 4 mg Product Wasted: ___ mg Isaura Wilde Promethazine 2018-07-26 18:56:00 No Notes: Do not give IV push. (Same as: Phenergan) Isaura Wilde Hydromorphone 2018-07-26 18:56:00 No Notes: Same as Dilaudid [facility] Flumazenil 2018-07-26 18:56:00 No Notes: (S zahra as: Romazicon) [facility] Naloxone 2018-07-26 18:56:00 No Notes: Same as Narcan [facility] Oxycodone 2018-07-26 18:56:00 No Notes: (Sa me as: Roxicodone) [facility] ondansetron (CURTISS) 2018-07-26 18:53:00 No Route: IV, Drug form: INJ, ONCE, Stop date: 07/26/18 13:53:00 CDT Konstantin Wilde tramadol hydrochloride 50 MG Oral Tablet 2018-07-26 18:48:00 Yes 50 mg = 1 tab, PO, PRE OP, # 24 tab, 0 Refill(s) Isaura Wilde dexmedetomidine (ANES) 2018-07-26 18:48:00 No Route: IV, Drug form: INJ, ONCE, Stop date: 07/26/18 13:48:00 CDT Isaura Wilde Motrin 600 mg oral tablet 2018-07-26 18:48:00 Yes 600 mg = 1 tab, PO, Q6H, PRN Pain, take with food, # 30 tab, 0 Refill(s) Isaura Wilde ketOROLAC (CURTISS) 2018-07-26 18:38:00 No IV, ONCE [facility] ketAMINE (ANES) 2018-07-26 17:01:00 No Route: IV, Drug form: INJ, ONCE, Stop date: 07/26/18 12:01:00 CDT Konstantin wintersritriny Wilde fentaNYL (CURTISS) 2018-07-26 16:56:00 No Route: IV, Drug form: INJ, ONCE, Stop date: 07/26/18 11:56:00 CDT Konstantin Wilde rocuronium (ANES) 2018-07-26 16:51:00 No Route: IV, Drug form: INJ, ONCE, Stop date: 07/26/18 11:51:00 CDT [facility] propofol ([facility]) 2018-07-26 16:51:00 No Route: IV, Drug form: INJ, ONCE, Stop date: 07/26/18 11:51:00 [facility] 2018-07-26 16:51:00 No Route: IV, Drug form: INJ, ONCE, Stop date: 07/26/18 11:51:00 CDT [facility] midazolam ([facility]) 2018-07-26 16:46:00 No Route: IV, Drug form: SOLN, ONCE, Stop date: 07/26/18 11:46:00 CDT [facility] phenylephrine ([facility]) 2018-07-26 16:41:00 No Route: IV, Drug form: INJ, ONCE, Stop date: 07/26/18 11:41:00 CDT [facility] dexamethasone ([facility]) 2018-07-26 16:41:00 No Route: IV, Drug form: INJ, ONCE, Stop date: 07/26/18 11:41:00 CDT [facility] Lactated Ringers Injection IV ([facility]) 1000 mL 2018-07-26 15:24:00 No Route: IV, Total Volume: 1,000, Start date: 07/26/18 10:24:00 CDT, Stop date: 07/26/18 11:24:00 CDT [facility] Exparel 2018-07-26 15:04:00 No Notes: (Same as: Exparel) NOT FOR IV use Postoperative analgesia: Infiltration [...] (total dose = 30 mL [266 mg]) [facility] Emend 2018-07-26 15:00:00 No Notes: Same as: Emend restricted to the Hematology/Oncology service for high and moderate emetogenic regimen according to ASCO Guidelines Passthrough Only for Chemotherapy-Induced nausea & vomitin g [facility] 72 HR Scopolamine 0.0139 MG/HR Transdermal Patch 2018-07-26 15:0 0:00 No Notes: Change patch every 72 hours (Same as: Transde rm-Scop) [facility] Tramadol 2018-07-26 15:00:00 No Notes: Not to exceed 400mg/day. (Same As: Ultram) [facility] gabapentin 2018-07-26 15:00:00 No Notes: (S zahra as: Neurontin) [facility] Celebrex 2018-07-26 15:00:00 No Notes: NSAID. Please check indication. Not for seizure. (Same As: CeleBREX) [facility] Acetaminophen 2018-07-26 15:00:00 No Notes: Max acetaminophen 4000 mg/day (4 gm/day). (Same as: Tylenol Extra Strength) [facility] Melatonin 2018-07-21 21:09:00 Yes Bedtime, 0 Refill(s) [facility] Ibuprofen PM 2018-07-21 21:09:00 Yes PO, Bed time, 0 Refill(s) [facility] Clonazepam 1 MG Oral Tablet [Klonopin] 2018-07-21 21:08:00 Yes 1 mg = 1 tab, PO, PRN, 0 [facility]) [facility] MG Oral Tablet [Lamictal] 2018-07-21 21:08:00 Yes 100 mg = 1 tab, PO, BID, # 180 tab, 0 Refill(s) [facility] LaMICtal 100 MG Oral Tablet LaMICtal 100 MG Oral Tablet 2018-07-19 00:00:00 Yes Q0.5D TAKE 1 TABLET TWICE DAILY. [facility] KlonoPIN 1 MG Oral Tablet KlonoPIN 1 MG Oral Tablet 2018-07-19 00:00:0 0 Yes PRN [facility] Robaxin 2018-07-13 12:43:00 No 1,000 mg, Route: PO, ONCE, Dosing Weight 63.636, kg, Start date: 07/13/18 7:43:00 CDT, Stop date: 07/13/18 7:43:00 CDT [facility] Bacitracin 0.5 UNT/MG Topical Ointment 2018-07-13 12:37:00 Yes 1 appl, TOP, BID, PRN Apply a thin layer to affected area, X 7 day, # 30 gm, 0 Refill(s) [facility] lamoTRIgine (LAMICTAL) 100 mg tablet 2018-05-31 00:00:00 Yes Seizures 100mg Q.5D Take 1 tablet by mouth 2 times daily. [facility] folic acid (FOLVITE) 1 mg tablet 2018-05-31 00:00:00 Yes Seizures 1mg QD Take 1 tablet by mouth daily. [facility] lamoTRIgine (LaMICtal) 100 MG tablet 2018-05-09 21:11:52 Ye s 100mg Q.5D Take 100 mg by mouth 2 (two) times a day. Zain Eduardo FHX22-gajx carb,cfd-RO-wbi-dha 90 mg iron-1 mg -50 mg-300 mg combo pack 2018-05-09 21:11:52 Yes 1{tbl} QD Take 1 tablet by m outh daily. Zain Eduardo Vqxwnedg-Jr-Eej-Fe-FA () Tab 2018-04-13 00: 00:00 Yes Seizure disorder during in first trimester Take by mouth. [facility] Levetiracetam 1000 MG Oral Tablet [Keppra] 2017-11-01 18:00:00 No Notes: (Same as:Keppra) [facility] Chlordiazepoxide Hydrochloride 5 MG Oral Capsule 2017-11-01 18:0 0:00 No Notes: (Same As: Librium) [facility] gabapentin 2017-11-01 17:22:00 No Notes: (S zahra as: Neurontin) [facility] Diazepam 2017-11-01 09:06:00 No 5 mg, Route: PO, ONCE, Dosing Weight 64.091, kg, Priority: STAT, Start date: 11/01/17 4:06:00 CDT, Stop date: 11/01/17 4:06:00 CDT [facility] Acet[facility] 2017-11-01 09:06:00 No 650 mg, Route: PO, Drug form: TAB, ONCE, Dosing Weight 64.091, kg, Priority: STAT, Start date: 11/01/17 4:06:00 CDT, Stop date: 11/01/17 4:06:00 CDT [facility] gabapentin 600 MG Oral Tablet 2017-11-01 03:52:00 No Notes: (Same as: Neurontin) Isaura Wilde Levetiracetam 1000 MG Oral Tablet [Keppra] 2017-11-01 03:52:00 No Notes: (Same as:Keppra) Isaura Wilde Trazodone Hydrochloride 50 MG Oral Tablet 2017-11-01 03:52:00 No 50 mg, 1 tab, Route: PO, ONCE, Dosing Weight 64.091, kg, Start date: 10/31/17 22:52:00 CDT, Stop date: 10/31/17 22:52:00 CDT Isaura Wilde Ativan 2017-11-01 01:51:00 No Notes: (Same as: Ativan) Isaura Wilde Sodium Chloride 0.9% IV 1,000 mL + M.V.I .-12 10 mL Daily + folic acid IV 1 mg Daily + thiamine IV 1 2017-11-01 01:41:00 No 1,000 mL, Rate: 100 ml/hr, Infuse over: 10.1 hr, Route: IV, Dosing Weight 64.091 kg, Total Volume: 1,011.2, Start date: 10/31/17 20:41:00 CDT, Duration: 1 doses or times, Stop date: 11/01/17 6:46:00 CDT, 1.69, m2 Cate Wilde Ativan 2017-10-31 22:37:00 No Notes: (Same as: Ativan) Isaura Wilde Tylenol 2017-10-31 22:37:00 No Notes: Do not exceed 4 gm/day. (Same as: Tylenol) Isaura Wilde gabapentin 600 MG Oral Tablet 2017-10-31 17:58:00 No Notes: (Same as: Neurontin) Isaura Wilde Keppra 2017-10-31 17:58:00 No Notes: (Same as:Keppra) Isaura Wilde Tylenol 2017-10-31 09:10:00 No 650 mg, Route: PO, Drug form: TAB, ONCE, Dosing Weight 64.091, kg, Priority: STAT, Start date: 10/31/17 4:10:00 CDT, Stop date: 10/31/17 4:10:00 CDT [facility] nevin Wilde Ketorolac 2017-10-31 08:03:00 No 30 mg, Route: IVP, Drug form: INJ, ONCE, Dosing Weight 64.091, kg, Priority: STAT, Start date: 10/31/17 3:03:00 CDT, Stop date: 10/31/17 3:03:00 CDT [facility] nevin Wilde hydrOXYzine (ATARAX) 25 mg tablet 2017-08-23 00:00:00 2018 00:00:00 No Anxiety 25mg Take 1 tablet by mouth every 6 hours as needed for Anxiety. [facility] gabapentin (NEURONTIN) 600 mg tablet 2017-08-19 00:00: 00 2019-02-26 00:00:00 No Alcohol use disorder 600mg Take 1 tablet by mouth 3 ti mes daily. [facility] Cephalexin 500 MG Oral Capsule [Keflex] 2017-08-08 01:40:00 Yes 500 mg = 1 cap, PO, TID, X 7 day, # 21 cap, 0 Refill(s) Isaura Wilde Isolyte S PH-7.4 (Bolus) IV 2017-08-07 23:56:00 No 1,000 mL, Route: IV, Dosing Weight 64.091, kg, ONCE, Start date: 08/07/17 18:56:00 CDT, Stop date: 08/07/17 18:56:00 CDT [facility] gabapentin 600 MG Oral Tablet 2017-08-07 22:30:00 No Notes: (Same as: Neurontin) Isaura Wilde ketOROLAC 30 mg/mL injectable solution 2017-08-07 22:28:00 No 4 days MEDICATION WASTE Product Size: 30 mg Product Wasted: ___ mg Isaura Wilde Lorazepam 2017-08-07 21:43:00 No 1 mg, Route: PO, Drug form: TAB, ONCE, Dosing Weight 64.091, kg, Priority: STAT, Start date: 08/07/17 16:43:00 CDT, Stop date: 08/07/17 16:43:00 CDT Il belkys Wilde Zofran 2017-08-07 21:10:00 No 4 mg, Route: IVP, Drug form: INJ, ONCE, Dosing Weight 64.091, kg, Priority: STAT, Start date: 08/07/17 16:10:00 CDT, Stop date: 08/07/17 16:10:00 CDT Il belkys Wilde Tylenol 2017-08-07 21:10:00 No 975 mg, Route: PO, Drug form: TAB, ONCE, Dosing Weight 64.091, kg, Priority: STAT, Start date: 08/07/17 16:10:00 CDT, Stop date: 08/07/17 16:10:00 CDT Il belkys Wilde Rocephin 2017-08-07 21:02:00 No 1 gm, Route: IVPB, Drug form: PDR/INJ, ONCE, Dosing Weight 64.091, kg, Priority: STAT, Start date: 08/07/17 16:02:00 CDT, Stop date: 08/07/17 16:02:00 CDT, ABX Indication: Urinary Tract Infection [facility] Calcium Chloride 0.0014 MEQ/ML / Potassi um Chloride 0.004 MEQ/ML / Sodium Chloride 0.103 MEQ/ML / Sodium Lactate 0.028 MEQ/ML Injectable Solution 2017-08-07 21:02:00 No 1,000 mL, 1,000 ml/hr, Infuse Over: 1 hr, Route: IV, ONCE, Priority: STAT, Dosing Weight 64.091 kg, Start date: 08/07/17 16:02:00 CDT, Stop date: 08/07/17 16:02:00 CDT [facility] thiamine, B-1, 50 mg tablet 2017-04-18 00:00:00 Yes Alcohol abuse 100mg QD Take 2 tablets by mouth daily. [facility] pyridoxine, vitamin B6, 50 mg tablet 2017-04-18 00:00:00 Yes Alcohol abuse 50mg Q.5D Take 1 tablet by mouth 2 times daily. [facility] folic acid (FOLVITE) 1 mg tablet 2017-04-18 00:00:00 Yes Alcohol abuse 1mg QD Take 1 tablet by mouth daily. [facility] Acetaminophen/Hydrocodone Bitart ([place] 10MG-325MG*) 1 Ea Tab Acetaminophen/Hydrocodone Bitart ([place] 10MG-325MG*) 1 Ea Tab Ye s 10 As Needed [facility] Citalopram Hydrobromide (Celexa) 20 Mg Tablet Citalopr am Hydrobromide (Celexa) 20 Mg Tablet Yes 20 Daily [facility] Immunizations Ordered Immunization Name Filled Immunization Name Date Status Comments Source Tdap Tetanus, diphtheria, acellular pertussis Vaccine 2017-02-03 00:00:00 Completed [facility] Influenza Vaccine, Seasonal, Injectable 2017-02-03 00:00:0 0 Completed [facility] Vital Signs Vital Name Observation Time Observation Value Comments Source Systolic blood pressure 2019-09-06 20:48:00 137 mm[Hg] [facility] Diastolic blood pressure 2019-09-06 20:48:00 96 mm[Hg] [facility] Heart rate 2019-09-06 20:48:00 87 /min [facility] Body temperature 2019-09-06 20:48:00 37.28 [facility] Respiratory rate 2019-09-06 20:48:00 16 /min [facility] Oxygen saturation in Arterial blood by Pulse oximetry 09-05 20:48:00 96 /min [facility] Temperature Oral (F) 2018-12-12 16:39:00 97.5 F [facility] Heart Rate 2018-12-12 16:39:00 [facility] Respitory Rate 2018-12-12 16:39:00 [facility] Systolic (mm Hg) 2018-12-12 16:39:00 [facility] Diastolic (mm Hg) 2018-12-12 16:39:00 [facility] Temperature Oral (F) 2018-12-12 12:58:00 97.6 F [facility] Heart Rate 2018-12-12 12:58:00 [facility] Systolic (mm Hg) 2018-12-12 12:58:00 [facility] Diastolic (mm Hg) 2018-12-12 12:58:00 [facility] Respitory Rate 2018-12-12 12:58:00 [facility] Temperature Oral (F) 2018-12-12 09:12:00 98.3 F [facility] Respitory Rate 2018-12-12 09:12:00 [facility] Systolic (mm Hg) 2018-12-12 09:12:00 [facility] Diastolic (mm Hg) 2018-12-12 09:12:00 [facility] Heart Rate 2018-12-11 10:28:00 [facility] Height 2018-12-09 11:22:00 157.4 cm [facility] Weight 2018-12-09 11:22:00 [facility] BMI Calculated 2018-12-09 11:22:00 [facility] Height 2018-12-09 05:43:00 157.48 cm [facility] BMI Calculated 2018-12-09 05:43:00 [facility] Weight 2018-12-09 05:43:00 [facility] Heart Rate 2018-12-05 20:59:00 [facility] Respitory Rate 2018-12-05 20:59:00 [facility] Systolic (mm Hg) 2018-12-05 20:59:00 [facility] Diastolic (mm Hg) 2018-12-05 20:59:00 [facility] Respitory Rate 2018-12-05 18:46:00 [facility] Heart Rate 2018-12-05 18:46:00 [facility] Systolic (mm Hg) 2018-12-05 18:46:00 [facility] Diastolic (mm Hg) 2018-12-05 18:46:00 [facility] Heart Rate 2018-12-05 14:04:00 [facility] Respitory Rate 2018-12-05 14:04:00 [facility] Height 2018-12-05 14:04:00 167.64 cm [facility] BMI Calculated 2018-12-05 14:04:00 [facility] Weight 2018-12-05 14:04:00 [facility] Body height 2018-11-22 12:04:00 157.5 cm [facility] Body weight 2018-11-22 12:04:00 56.7 kg [facility] BMI 2018-11-22 12:04:00 22.86 kg/m2 [facility] Systolic blood pressure 2018-11-22 12:01:58 117 mm[Hg] [facility] Diastolic blood pressure 2018-11-22 12:01:58 69 mm[Hg] [facility] Heart rate 2018-11-22 12:01:58 82 /min [facility] Body temperature 2018-11-22 12:01:58 36.89 [facility] Respiratory rate 2018-11-22 12:01:58 18 /min [facility] Oxygen saturation in Arterial blood by Pulse oximetry 11-22 12:01:58 100 /min [facility] Temperature Oral (F) 2018-10-18 13:19:00 98.5 F [facility] Heart Rate 2018-10-18 13:19:00 [facility] Systolic (mm Hg) 2018-10-18 13:19:00 [facility] Diastolic (mm Hg) 2018-10-18 13:19:00 [facility] Systolic (mm Hg) 2018-10-18 11:39:00 [facility] Diastolic (mm Hg) 2018-10-18 11:39:00 [facility] Heart Rate 2018-10-18 11:39:00 [facility] Temperature Oral (F) 2018-10-18 11:39:00 98 F [facility] Systolic (mm Hg) 2018-10-18 05:06:00 [facility] Diastolic (mm Hg) 2018-10-18 05:06:00 [facility] Heart Rate 2018-10-18 05:06:00 [facility] Respitory Rate 2018-10-18 05:06:00 [facility] Temperature Oral (F) 2018-10-18 05:06:00 97.6 F [facility] Height 2018-10-18 05:06:00 157.48 cm [facility] BMI Calculated 2018-10-18 05:06:00 [facility] Weight 2018-10-18 05:06:00 [facility] Systolic (mm Hg) 2018-09-25 07:00:00 [facility] Diastolic (mm Hg) 2018-09-25 07:00:00 [facility] Temperature Oral (F) 2018-09-25 07:00:00 98.1 F [facility] Respitory Rate 2018-09-25 07:00:00 [facility] Heart Rate 2018-09-25 07:00:00 [facility] Respitory Rate 2018-09-25 06:00:00 [facility] Systolic (mm Hg) 2018-09-25 06:00:00 [facility] Diastolic (mm Hg) 2018-09-25 06:00:00 [facility] Heart Rate 2018-09-25 06:00:00 [facility] Temperature Oral (F) 2018-09-25 06:00:00 98.0 F [facility] Respitory Rate 2018-09-25 03:45:00 [facility] Systolic (mm Hg) 2018-09-25 03:45:00 [facility] Diastolic (mm Hg) 2018-09-25 03:45:00 [facility] Heart Rate 2018-09-25 03:45:00 [facility] BMI Calculated 2018-09-25 03:32:00 [facility] Weight 2018-09-25 03:32:00 [facility] Height 2018-09-25 03:32:00 157.48 cm [facility] Temperature Oral (F) 2018-09-25 03:32:00 99.7 F [facility] Heart Rate 2018-09-09 12:43:00 [facility] Systolic (mm Hg) 2018-09-09 12:43:00 [facility] Diastolic (mm Hg) 2018-09-09 12:43:00 [facility] Respitory Rate 2018-09-09 12:43:00 [facility] Temperature Oral (F) 2018-09-09 12:43:00 98.2 F [facility] BMI Calculated 2018-09-09 06:49:00 [facility] Weight 2018-09-09 06:49:00 [facility] Height 2018-09-09 06:49:00 160.02 cm [facility] Temperature Oral (F) 2018-09-09 06:49:00 98.2 F [facility] Respitory Rate 2018-09-09 06:49:00 [facility] Heart Rate 2018-09-09 06:49:00 [facility] Systolic (mm Hg) 2018-09-09 06:49:00 [facility] Diastolic (mm Hg) 2018-09-09 06:49:00 [facility] BP Systolic 2018-09-06 11:12:00 109 mm[Hg] Location: LUE; Positi on: Sitting [facility] BP Diastolic 2018-09-06 11:12:00 75 mm[Hg] Location: LUE; Positi on: Sitting [facility] Height 2018-09-06 11:12:00 63 [in_us] [facility] Weight 2018-09-06 11:12:00 121 [lb_av] [facility] Body Mass Index Calculated 2018-09-06 11:12:00 21.43 kg/m2 [facility] Temperature 2018-09-06 11:12:00 98.2 [degF] Method: Oral [facility] Heart Rate 2018-09-06 11:12:00 99 /min [facility] Respitory Rate 2018-08-24 05:15:00 [facility] Systolic (mm Hg) 2018-08-24 05:15:00 [facility] Diastolic (mm Hg) 2018-08-24 05:15:00 [facility] Respitory Rate 2018-08-24 04:36:00 [facility] Systolic (mm Hg) 2018-08-24 04:36:00 [facility] Diastolic (mm Hg) 2018-08-24 04:36:00 [facility] Respitory Rate 2018-08-24 03:34:00 [facility] Systolic (mm Hg) 2018-08-24 03:34:00 [facility] Diastolic (mm Hg) 2018-08-24 03:34:00 [facility] Weight 2018-08-24 00:09:00 [facility] Height 2018-08-24 00:09:00 165.1 cm [facility] BMI Calculated 2018-08-24 00:09:00 [facility] Temperature Oral (F) 2018-08-24 00:09:00 98.5 F [facility] Heart Rate 2018-08-24 00:09:00 [facility] BP Systolic 2018-08-09 08:56:00 129 mm[Hg] Location: RUE; Positi on: Sitting [facility] BP Diastolic 2018-08-09 08:56:00 87 mm[Hg] Location: RUE; Positi on: Sitting [facility] Height 2018-08-09 08:56:00 63 [in_us] [facility] Weight 2018-08-09 08:56:00 126.2 [lb_av] [facility] Body Mass Index Calculated 2018-08-09 08:56:00 22.36 kg/m2 [facility] Temperature 2018-08-09 08:56:00 98 [degF] Method: Oral [facility] Heart Rate 2018-08-09 08:56:00 87 /min [facility] Systolic (mm Hg) 2018-08-02 18:30:00 [facility] Diastolic (mm Hg) 2018-08-02 18:30:00 [facility] Respitory Rate 2018-08-02 18:30:00 [facility] Temperature Oral (F) 2018-08-02 18:30:00 98.5 F [facility] Temperature Oral (F) 2018-08-02 16:01:00 98.4 F [facility] Systolic (mm Hg) 2018-08-02 16:01:00 [facility] Diastolic (mm Hg) 2018-08-02 16:01:00 [facility] Respitory Rate 2018-08-02 16:01:00 [facility] Systolic (mm Hg) 2018-08-02 14:02:00 [facility] Diastolic (mm Hg) 2018-08-02 14:02:00 [facility] Temperature Oral (F) 2018-08-02 14:02:00 99 F [facility] Respitory Rate 2018-08-02 14:02:00 [facility] Weight 2018-08-02 01:05:00 [facility] BMI Calculated 2018-08-02 01:05:00 [facility] Heart Rate 2018-08-02 01:05:00 [facility] Height 2018-08-02 01:05:00 170.18 cm [facility] Heart Rate 2018-07-31 12:07:00 [facility] Respitory Rate 2018-07-31 12:07:00 [facility] Systolic (mm Hg) 2018-07-31 12:07:00 [facility] Diastolic (mm Hg) 2018-07-31 12:07:00 [facility] Temperature Oral (F) 2018-07-31 12:07:00 98.6 [facility] Systolic (mm Hg) 2018-07-31 08:30:00 [facility] Diastolic (mm Hg) 2018-07-31 08:30:00 [facility] Heart Rate 2018-07-31 08:30:00 [facility] Respitory Rate 2018-07-31 08:30:00 [facility] Respitory Rate 2018-07-31 04:30:00 [facility] Systolic (mm Hg) 2018-07-31 04:30:00 [facility] Diastolic (mm Hg) 2018-07-31 04:30:00 [facility] Heart Rate 2018-07-31 04:30:00 [facility] Weight 2018-07-30 21:10:00 [facility] Respitory Rate 2018-07-27 12:52:00 [facility] Systolic (mm Hg) 2018-07-27 12:52:00 [facility] Diastolic (mm Hg) 2018-07-27 12:52:00 [facility] Heart Rate 2018-07-27 12:52:00 [facility] Temperature Oral (F) 2018-07-27 12:52:00 98.4 F [facility] Temperature Oral (F) 2018-07-27 08:39:00 98.8 F [facility] Respitory Rate 2018-07-27 08:39:00 [facility] Heart Rate 2018-07-27 08:39:00 [facility] Systolic (mm Hg) 2018-07-27 08:39:00 [facility] Diastolic (mm Hg) 2018-07-27 08:39:00 [facility] Systolic (mm Hg) 2018-07-27 04:37:00 [facility] Diastolic (mm Hg) 2018-07-27 04:37:00 [facility] Respitory Rate 2018-07-27 04:37:00 [facility] Heart Rate 2018-07-27 04:37:00 [facility] Temperature Oral (F) 2018-07-27 04:37:00 98.9 F [facility] Weight 2018-07-26 21:41:00 [facility] BMI Calculated 2018-07-26 21:41:00 [facility] Height 2018-07-26 21:41:00 160.02 cm [facility] BMI Calculated 2018-07-26 13:20:00 [facility] Weight 2018-07-26 13:20:00 [facility] Height 2018-07-21 21:10:00 160.02 cm [facility] BP Systolic 2018-07-19 09:21:00 138 mm[Hg] Location: RUE; Positi on: Sitting [facility] BP Diastolic 2018-07-19 09:21:00 78 mm[Hg] Location: RUE; Positi on: Sitting [facility] Height 2018-07-19 09:21:00 63 [in_us] [facility] Weight 2018-07-19 09:21:00 134 [lb_av] [facility] Body Mass Index Calculated 2018-07-19 09:21:00 23.74 kg/m2 [facility] Temperature 2018-07-19 09:21:00 98.3 [degF] Method: Oral [facility] Heart Rate 2018-07-19 09:21:00 111 /min [facility] Systolic (mm Hg) 2018-07-13 12:30:00 [facility] Diastolic (mm Hg) 2018-07-13 12:30:00 [facility] Heart Rate 2018-07-13 12:30:00 [facility] Respitory Rate 2018-07-13 12:30:00 [facility] Weight 2018-07-13 11:00:00 [facility] BMI Calculated 2018-07-13 11:00:00 [facility] Respitory Rate 2018-07-13 11:00:00 [facility] Systolic (mm Hg) 2018-07-13 11:00:00 [facility] Diastolic (mm Hg) 2018-07-13 11:00:00 [facility] Heart Rate 2018-07-13 11:00:00 [facility] Temperature Oral (F) 2018-07-13 11:00:00 98.2 F [facility] Height 2018-07-13 11:00:00 162.56 cm [facility] Heart Rate 2018-05-04 06:36:00 [facility] Systolic (mm Hg) 2018-05-04 06:36:00 [facility] Diastolic (mm Hg) 2018-05-04 06:36:00 [facility] Respitory Rate 2018-05-04 06:36:00 [facility] Temperature Oral (F) 2018-05-04 06:36:00 98.5 F [facility] Temperature Oral (F) 2018-05-04 03:50:00 98.6 F [facility] Weight 2018-05-04 03:50:00 [facility] BMI Calculated 2018-05-04 03:50:00 [facility] Height 2018-05-04 03:50:00 157.48 cm [facility] Systolic (mm Hg) 2018-05-04 03:50:00 [facility] Diastolic (mm Hg) 2018-05-04 03:50:00 [facility] Heart Rate 2018-05-04 03:50:00 [facility] Respitory Rate 2018-05-04 03:50:00 [facility] Systolic (mm Hg) 2017-11-01 21:00:00 [facility] Diastolic (mm Hg) 2017-11-01 21:00:00 [facility] Respitory Rate 2017-11-01 21:00:00 [facility] Temperature Oral (F) 2017-11-01 21:00:00 98.2 F [facility] Heart Rate 2017-11-01 21:00:00 [facility] Systolic (mm Hg) 2017-11-01 17:00:00 [facility] Diastolic (mm Hg) 2017-11-01 17:00:00 [facility] Respitory Rate 2017-11-01 17:00:00 [facility] Heart Rate 2017-11-01 17:00:00 [facility] Temperature Oral (F) 2017-11-01 17:00:00 98.1 F [facility] Systolic (mm Hg) 2017-11-01 12:45:00 [facility] Diastolic (mm Hg) 2017-11-01 12:45:00 [facility] Respitory Rate 2017-11-01 12:45:00 [facility] Temperature Oral (F) 2017-11-01 12:45:00 98.2 F [facility] Heart Rate 2017-11-01 12:45:00 [facility] Heart Rate 2017-08-08 02:47:00 [facility] Temperature Oral (F) 2017-08-08 02:47:00 98.4 F [facility] Respitory Rate 2017-08-08 02:47:00 [facility] Systolic (mm Hg) 2017-08-08 02:47:00 [facility] Diastolic (mm Hg) 2017-08-08 02:47:00 [facility] Heart Rate 2017-08-08 01:36:00 [facility] Temperature Oral (F) 2017-08-08 01:36:00 97.6 F [facility] Systolic (mm Hg) 2017-08-08 01:36:00 [facility] Diastolic (mm Hg) 2017-08-08 01:36:00 [facility] Respitory Rate 2017-08-08 01:36:00 [facility] Respitory Rate 2017-08-07 23:50:00 [facility] Heart Rate 2017-08-07 23:50:00 [facility] Temperature Oral (F) 2017-08-07 23:50:00 98.6 F [facility] Systolic (mm Hg) 2017-08-07 23:50:00 [facility] Diastolic (mm Hg) 2017-08-07 23:50:00 [facility] BMI Calculated 2017-08-07 20:27:00 [facility] Weight 2017-08-07 20:27:00 [facility] Height 2017-08-07 20:27:00 157.48 cm [facility] Procedures Procedure Date / Time Performed Performing Clinician [facility] e GLUCOSE POC 2019-09-06 17:16:00 [facility] XRAY CHEST 1 VIEW 2019-09-06 14:35:35 Lakshmi [facility] alth CORONAVIRUS, COVID-19, GIULIANA 2019-09-06 08:26[facility] CONSULT CLINICAL CASE MANAGEMENT (RN/SW) 2019-09-06 05:32:55 Luther marroquin [facility] IP CONSULT WITH INSIGHT 2019-09-06 05:32:55 Lakshmi [facility] BMP POC 2019-09-06 01:51:00 [facility] BMP POC 2019-09-06 01:34:[address] [facility] [facility] [address] HEAD W/O CONTRAST 2019-09-06 01:06:[address] [facility] [address] MAXILLOFACIAL W/O CONTRAST 2019-09-06 01:06:53 Arthur Martins [facility] CBC/DIFF 2019-09-05 23:53:00 [facility] COMPREHENSIVE METABOLIC PANEL 2019-09-05 23:53:00 Arthur Martins [facility] LIPASE 2019-09-05 23:53:00 [facility] ALCOHOL, MEDICAL USE ONLY 2019-09-05 23:53:00 Lakshmi Wilfrido [facility] SALICYLATE 2019-09-05 23:53:00 Lakshmi Wilfrido [facility] LAMOTRIGINE-LAMICTAL 2019-09-05 23:53:00 Lakshmi [facility] CBC 2019-09-05 23:53:00 Lakshmi Wilfrido [facility] TEST 2019-09-05 23:43:00 [facility] URINE DRUG SCREEN 2019-09-05 23:43:00 Lakshmi Wilfrido [facility] alth XR CHEST 2 VW 2018-11-22 14:12:56 Jannette [facility] URINE CULTURE 2018-11-22 13:23:00 Jannette [facility] GRAM STAIN 2018-11-22 13:23:00 Jannette [facility] GROUP A STREP, RAPID ANTIGEN 2018-11-22 12:56:00 Keysha Duncan STREP SCREEN CULTURE 2018-11-22 12:56:00 Jannette Duncan URINALYSIS SCREEN AND MICROSCOPY, WITH REFLEX TO CULTURE 201 11-13-17 12:53:00 Jannette Duncan CBC WITH PLATELET AND DIFFERENTIAL 2018-11-22 12:47:00 Jannette Duncan COMPREHENSIVE METABOLIC PANEL 2018-11-22 12:47:00 Brandy Duncan ESTIMATED GFR 2018-11-22 12:47:00 Jannette Duncan [facility] MANUAL DIFFERENTIAL 2018-11-22 12:47:00 Jannette Duncan INFLUENZA ANTIGEN TEST, REFLEX NEGATIVE TO RPP 2018-11-22 12 :43:00 Jannette Duncan RESPIRATORY PATHOGEN PANEL 2018-11-22 12:43:00 Dustin Duncan Computed tomography of brain without radiopaque contrast 201 09-14-05 00:00:00 JENN MCKEON [facility] Dilatation and curettage<sup>1</sup> [facility] Plan of Care Planned Activity Planned Date Details Comments Source Future Scheduled Test 2019-12-06 00:00:00 INFLUENZA VACCINE [code = INFLUENZA VACCINE] [facility] Future Scheduled Test 2019-07-17 00:00:00 Screening for adelia gnant neoplasm of cervix (procedure) [code = 374766589] [facility] Future Scheduled Test 2008-10-16 00:00:00 Screening for adelia gnant neoplasm of cervix (procedure) [code = 240604641] [facility] En[facility] Start Date/Time End Date/Time Encounter Type Admission Type [facility] Care Department Encounter ID Source 2019-10-22 17:25:00 2019-10-23 03:40:00 Emergency Grayson Camachoelle [facility] ([facility]) [id number] 2019-09-14 22:34:09 2019-09-15 19:28:00 Emergency C Shaka lopez, [facility] ([facility]) [id number] 2019-08-29 00:00:00 2019-08-29 00:00:00 Orders Only D octor Unassigned, [facility] [id number] 2019-08-13 00:00:00 2019-08-13 00:00:00 Transition of Care Tiffany Coyle [id number] 2019-08-06 19:30:27 2019-08-10 14:33:00 Hospital Encounter Serjio Henley Emran [facility] ([facility]) [id number] 2019-01-15 00:00:00 2019-01-15 00:00:00 Outpatient [facility] [id number] [facility] 2018-12-09 00:42:39 2018-12-12 14:20:00 Outpatient Minerva Chaidez M[facility] M[facility] [id number] 2018-12-09 11:19:00 2018-12-09 03:46:00 Inpatient U [facility] MED [id number] [facility] 2018-12-05 08:54:00 2018-12-05 16:40:00 Outpatient Luc Demarco M[facility] M[facility] [id number] 2018-12-05 08:54:00 2018-12-05 08:54:00 Emergency E [facility] [id number] [facility] 2018-11-08 00:00:00 2018-11-08 00:00:00 Outpatient [facility] [id number] [facility] 2018-10-23 13:22:20 2018-10-23 13:22:20 Outpatient [facility] [id number] [facility] 2018 23:59:00 2018-10-18 08:57:00 Outpatient Conner Miles M[facility] M[facility] [id number] 2018 23:59:00 2018 23:59:00 Emergency E [facility] [id number] [facility] 2018-10-12 00:00:00 2018-10-12 00:00:00 Outpatient [facility] [id number] [facility] 2018-09-29 07:51:22 2018-09-29 07:51:22 Emergency [facility] [id number] [facility] 2018-09-29 02:25:07 2018-09-29 02:25:07 Emergency [facility] [id number] [facility] 2018-09-24 22:28:00 2018-09-25 03:21:00 Outpatient Danish Caruso MHGHR MHGHR [id number] 2018-09-24 22:28:00 2018-09-24 22:28:00 Emergency E [facility] [id number] [facility] 2018-09-21 13:06:16 2018-09-21 13:06:16 Outpatient [facility] [id number] [facility] 2018-09-09 01:47:00 2018-09-09 08:22:00 Outpatient Roopa Beard M[facility] M[facility] [id number] 2018-09-09 01:47:00 2018-09-09 01:47:00 Emergency E [facility]NW [id number] NW 2018-09-06 11:00:00 2018-09-06 11:00:00 Appointment; MARIETTA BARRAZA M.D. BHALWAL, ASHA, M.D. [facility] Obstetrics and Gynecology [facility] [id number] [facility] 2018-08-28 00:00:00 2018-08-28 00:00:00 Outpatient [facility] [id number] [facility] 2018-08-23 19:03:20 2018-08-24 00:48:00 Outpatient Avis Knowles GHR GHR [id number] 2018-08-23 19:03:00 2018-08-23 19:03:00 Emergency E [facility] [id number] [facility] 2018-08-09 09:30:00 2018-08-09 09:30:00 Appointment; MARIETTA BARRAZA M.D. BHALWAL, ASHA, M.D. [facility] [id number] [facility] 2018-08-01 20:04:18 2018-08-02 14:45:00 Outpatient Diamond Hunter MHGHR GHR [id number] 2018-08-01 20:04:00 2018-08-01 20:04:00 Emergency E [facility] [id number] [facility] 2018-07-30 16:05:09 2018-07-31 08:00:00 Outpatient Joe Celeste [facility] [id number] 2018-07-30 16:05:00 2018-07-30 16:05:00 Emergency E [facility] [id number] [facility] 2018-07-26 15:14:00 2018-07-27 10:33:00 Outpatient Marietta Barraza Bhagsingh [facility] [id number] 2018-07-26 15:14:00 2018-07-26 15:14:00 [id number] 2018-07-26 11:30:00 2018-07-26 11:30:00 Appointment; NOLAN WHARTON M .D. KATZ, ALLAN, M.D. UTP UTP [id number] [facility] 2018-07-26 11:30:00 2018-07-26 11:30:00 Appointment; MARIETTA BARRAZA M.D. BHALWAL, ASHA, M.D. [facility] UTP [id number] [facility] 2018-07-19 09:00:00 2018-07-19 09:00:00 Appointment; MARIETTA BARRAZA M.D. BHALWAL, ASHA, M.D. [facility] Pool Table Operator [id number] [facility] 2018-07-13 05:56:52 2018-07-13 08:20:00 Outpatient W frank Billy Rad Henry [facility] [id number] 2018-07-13 05:56:00 2018-07-13 05:56:00 Emergency E [facility] [id number] [facility] 2018-06-26 14:27:28 2018-06-26 14:27:28 Outpatient [facility] [id number] [facility] 2018-06-26 13:36:30 2018-06-26 13:36:30 Outpatient [facility] [id number] [facility] 2018-06-12 16:00:00 2018-06-12 23:59:00 Outpatient Sundeep Rivers [id number] 2018-06-01 00:00:00 2018-06-01 00:00:00 Outpatient [facility] [id number] [facility] 2018-05-31 10:17:01 2018-05-31 10:17:01 Outpatient [facility] [id number] [facility] 2018-05-11 00:00:00 2018-05-11 00:00:00 Outpatient [facility] [id number] [facility] 2018-05-11 00:00:00 2018-05-11 00:00:00 Outpatient [facility] [id number] [facility] 2018-05-11 00:00:00 2018-05-11 00:00:00 Outpatient [facility] [id number] [facility] 2018-05-05 00:00:00 2018-05-05 00:00:00 Outpatient [facility] [id number] [facility] 2018-05-04 11:30:00 2018-05-04 11:30:00 Appointment; SKIN FORMER, ROOM3 SKIN FORMER, ROOM3 [facility] [id number] [facility] 2018-05-03 21:27:00 2018-05-04 04:31:00 Outpatient Lobito Graves [facility] [id number] 2018-05-04 00:00:00 2018-05-04 00:00:00 Outpatient [facility] [id number] [facility] 2018-05-02 00:00:00 2018-05-02 00:00:00 Outpatient [facility] [id number] [facility] 2018-04-27 00:00:00 2018-04-27 00:00:00 Outpatient [facility] [id number] [facility] 2018-04-27 00:00:00 2018-04-27 00:00:00 Outpatient [facility] [id number] [facility] 2018-04-24 00:00:00 2018-04-24 00:00:00 Outpatient [facility] [id number] [facility] 2018-04-18 00:00:00 2018-04-18 00:00:00 Outpatient [facility] [id number] [facility] 2018-04-13 08:43:04 2018-04-13 08:43:04 Outpatient [facility] [id number] [facility] 2018-04-13 00:00:00 2018-04-13 00:00:00 Outpatient [facility] [id number] [facility] 2018-04-11 14:47:42 2018-04-11 14:47:42 Outpatient [facility] [id number] [facility] 2018-04-06 00:00:00 2018-04-06 00:00:00 Outpatient [facility] [id number] [facility] 2018-04-03 15:51:27 2018-04-03 15:51:27 Outpatient [facility] [id number] [facility] 2018-03-16 00:00:00 2018-03-16 00:00:00 Outpatient [facility] [id number] [facility] 2018-03-13 09:03:44 2018-03-13 09:03:44 Outpatient [facility] [id number] [facility] 2018-03-09 15:32:13 2018-03-09 15:32:13 Outpatient [facility] [id number] [facility] 2018-01-17 00:00:00 2018-01-17 00:00:00 Outpatient [facility] [id number] [facility] 2018-01-16 00:00:00 2018-01-16 00:00:00 Outpatient [facility] [id number] [facility] 2018-01-13 00:00:00 2018-01-13 00:00:00 Outpatient [facility] [id number] [facility] 2018-01-02 12:16:17 2018-01-02 12:16:17 Emergency [facility] [id number] [facility] 2018-01-01 15:33:01 2018-01-01 15:33:01 Emergency [facility] [id number] [facility] 2017-12-14 00:00:00 2017-12-14 00:00:00 Outpatient [facility] [id number] [facility] 2017-11-24 00:00:00 2017-11-24 00:00:00 Outpatient [facility] [id number] [facility] 2017-11-18 10:31:22 2017-11-18 10:31:22 Outpatient [facility] [id number] [facility] 2017-11-10 00:00:00 2017-11-10 00:00:00 Outpatient [facility] [id number] [facility] 2017-10-31 02:30:00 2017-11-01 17:35:00 Outpatient Danielle Brown [facility] [id number] 2017-11-01 00:00:00 2017-11-01 00:00:00 Outpatient [facility] [id number] [facility] 2017-10-07 00:00:00 2017-10-07 00:00:00 Outpatient [facility] [id number] [facility] 2017-09-24 01:27:25 2017-09-24 01:27:25 Emergency [facility] [id number] [facility] 2017-09-24 00:03:44 2017-09-24 00:03:44 Outpatient [facility] [id number] [facility] 2017-09-09 00:00:00 2017-09-09 00:00:00 Outpatient [facility] [id number] [facility] 2017-09-08 17:11:30 2017-09-08 17:11:30 Outpatient [facility] [id number] [facility] 2017-08-26 10:56:32 2017-08-26 10:56:32 Outpatient [facility] [id number] [facility] 2017-08-23 15:10:26 2017-08-23 15:10:26 Outpatient [facility] [id number] [facility] 2017-08-17 10:39:54 2017-08-17 10:39:54 Outpatient [facility] [id number] [facility] 2017-08-17 08:37:37 2017-08-17 08:37:37 Outpatient [facility] [id number] [facility] 2017-08-08 12:37:24 2017-08-08 12:37:24 Emergency [facility] MED [id number] [facility] 2017-08-07 15:23:00 2017-08-07 21:50:00 Outpatient KylerKeturah [facility] [id number] 2017-07-25 00:00:00 2017-07-25 00:00:00 Outpatient [facility] [id number] [facility] 2017-07-19 00:00:00 2017-07-19 00:00:00 Outpatient [facility] [id number] [facility] 2017-07-19 00:00:00 2017-07-19 00:00:00 Outpatient [facility] [id number] [facility] 2017-07-15 00:00:00 2017-07-15 00:00:00 Outpatient [facility] [id number] [facility] 2017-07-13 00:00:00 2017-07-13 00:00:00 Outpatient [facility] [id number] [facility] 2017-07-13 00:00:00 2017-07-13 00:00:00 Outpatient [facility] [id number] [facility] 2017-07-13 00:00:00 2017-07-13 00:00:00 Outpatient [facility] [id number] [facility] 2017-07-08 00:00:00 2017-07-08 00:00:00 Outpatient [facility] [id number] [facility] 2017-07-04 00:00:00 2017-07-04 00:00:00 Outpatient [facility] [id number] [facility] 2017-06-24 00:00:00 2017-06-24 00:00:00 Outpatient [facility] [id number] [facility] 2017-06-24 00:00:00 2017-06-24 00:00:00 Outpatient [facility] [id number] [facility] 2017-06-18 21:12:00 2017-06-18 23:36:00 Departed Emergency Room [facility] [id number] [facility] 2017-06-16 00:00:00 2017-06-16 00:00:00 Outpatient [facility] [id number] [facility] 2017-06-15 00:00:00 2017-06-15 00:00:00 Outpatient [facility] [id number] [facility] 2017-06-08 00:00:00 2017-06-08 00:00:00 Outpatient [facility] [id number] [facility] 2017-06-02 00:00:00 2017-06-02 00:00:00 Outpatient [facility] [id number] [facility] 2017-05-25 10:00:29 2017-05-25 10:00:29 Outpatient [facility] [id number] [facility] 2017-05-25 00:00:00 2017-05-25 00:00:00 Outpatient [facility] [id number] [facility] 2017-05-25 00:00:00 2017-05-25 00:00:00 Outpatient [facility] [id number] [facility] 2017-05-24 00:00:00 2017-05-24 00:00:00 Outpatient [facility] [id number] [facility] 2017-05-18 00:00:00 2017-05-18 00:00:00 Outpatient [facility] [id number] [facility] 2017-05-17 10:58:45 2017-05-17 10:58:45 Outpatient [facility] [id number] [facility] 2017-05-17 08:19:46 2017-05-17 08:19:46 Outpatient [facility] [id number] [facility] 2017-05-11 00:00:00 2017-05-11 00:00:00 Outpatient [facility] [id number] [facility] 2017-05-05 12:11:36 2017-05-05 12:11:36 Outpatient [facility] [id number] [facility] 2017-05-05 10:30:09 2017-05-05 10:30:09 Outpatient [facility] [id number] [facility] 2017-04-25 09:44:48 2017-04-25 09:44:48 Outpatient [facility] [id number] [facility] 2017-04-25 00:00:00 2017-04-25 00:00:00 Outpatient [facility] [id number] [facility] 2017-04-22 00:00:00 2017-04-22 00:00:00 Outpatient [facility] [id number] [facility] 2017-04-19 09:44:58 2017-04-19 09:44:58 Emergency [facility] MED [id number] [facility] 2017-04-19 07:49:09 2017-04-19 07:49:09 Outpatient [facility] [id number] [facility] 2017-04-19 00:00:00 2017-04-19 00:00:00 Outpatient [facility] [id number] [facility] 2017-04-18 15:00:50 2017-04-18 15:00:50 Outpatient [facility] [id number] [facility] 2017-04-18 00:00:00 2017-04-18 00:00:00 Outpatient [facility] [id number] [facility] 2017-04-15 15:48:30 2017-04-15 15:48:30 Outpatient [facility] [id number] [facility] 2017-04-14 09:40:58 2017-04-14 09:40:58 Outpatient [facility] [id number] [facility] 2017-04-06 00:00:00 2017-04-06 00:00:00 Outpatient [facility] [id number] [facility] 2017-03-25 09:34:34 2017-03-25 09:34:34 Outpatient [facility] [id number] [facility] 2017-03-21 19:50:55 2017-03-21 19:50:55 Emergency [facility] [id number] [facility] 2017-03-21 19:31:52 2017-03-21 19:31:52 Emergency [facility] [id number] [facility] 2017-03-21 17:41:44 2017-03-21 17:41:44 Emergency [facility] [id number] [facility] 2017-03-09 09:29:04 2017-03-09 09:29:04 Outpatient [facility] [id number] [facility] 2017-03-03 09:41:43 2017-03-03 09:41:43 Emergency [facility] [id number] [facility] 2017-03-03 08:41:00 2017-03-03 08:41:00 Emergency [facility] [id number] [facility] 2017-02-14 10:56:29 2017-02-14 10:56:29 Outpatient [facility] [id number] [facility] 2017-02-12 09:20:00 2017-02-12 09:56:00 [id number] 2017-02-03 15:46:29 2017-02-03 15:46:29 Outpatient [facility] [id number] [facility] 2017-02-03 14:28:55 2017-02-03 14:28:55 Outpatient [facility] [id number] [facility] 2017-02-01 00:00:00 2017-02-01 00:00:00 Outpatient [facility] [id number] [facility] 2017-01-31 00:00:00 2017-01-31 00:00:00 Outpatient [facility] [id number] [facility] 2017-01-20 08:35:05 2017-01-20 08:35:05 Outpatient [facility] [id number] [facility] 2017-01-10 21:32:00 2017-01-11 04:51:00 Departed Emergency Room ER JENN MCKEON [facility] [id number] [facility] 2016-12-31 10:40:05 2016-12-31 10:40:05 Outpatient [facility] [id number] [facility] 2016-12-27 10:22:29 2016-12-27 10:22:29 Outpatient [facility] [id number] [facility] 2016-12-27 00:00:00 2016-12-27 00:00:00 Outpatient [facility] [id number] [facility] 2016-12-13 00:00:00 2016-12-13 00:00:00 Outpatient [facility] [id number] [facility] 2016-12-06 11:56:04 2016-12-06 11:56:04 Outpatient [facility] [id number] [facility] 2016-12-06 11:39:08 2016-12-06 11:39:08 Outpatient [facility] [id number] [facility] 2016-11-25 00:00:00 2016-11-25 00:00:00 Outpatient [facility] [id number] [facility] 2016-11-22 13:03:39 2016-11-22 13:03:39 Outpatient [facility] [id number] [facility] 2016-11-17 13:51:48 2016-11-17 13:51:48 Outpatient [facility] [id number] [facility] 2016-11-17 13:01:42 2016-11-17 13:01:42 Outpatient [facility] [id number] [facility] 2016-11-16 08:03:59 2016-11-16 08:03:59 Outpatient [facility] [id number] [facility] 2016-11-15 10:20:10 2016-11-15 10:20:10 Outpatient [facility] [id number] [facility] 2016-11-03 00:00:00 2016-11-03 00:00:00 Outpatient [facility] [id number] [facility] 2016-11-02 18:55:37 2016-11-02 18:55:37 Emergency [facility] [id number] [facility] 2016-09-17 19:08:40 2016-09-17 19:08:40 Outpatient [facility] [id number] [facility] 2016-09-16 10:39:26 2016-09-16 10:39:26 Outpatient [facility] [id number] [facility] 2016-09-08 00:00:00 2016-09-08 00:00:00 Outpatient [facility] [id number] [facility] 2016-08-31 00:00:00 2016-08-31 00:00:00 Outpatient [facility] [id number] [facility] 2016-08-20 00:00:00 2016-08-20 00:00:00 Outpatient [facility] [id number] [facility] 2016-08-13 10:55:00 2016-08-13 10:55:00 Outpatient [facility] [id number] [facility] 2016-08-13 09:07:42 2016-08-13 09:07:42 Outpatient [facility] [id number] [facility] 2016-07-29 12:16:51 2016-07-29 12:16:51 Outpatient [facility] [id number] [facility] 2016-07-29 11:08:31 2016-07-29 11:08:31 Outpatient [facility] [id number] [facility] 2016-07-29 00:00:00 2016-07-29 00:00:00 Outpatient [facility] [id number] [facility] 2016-07-29 00:00:00 2016-07-29 00:00:00 Outpatient [facility] [id number] [facility] 2016-07-22 12:52:01 2016-07-22 12:52:01 Outpatient [facility] [id number] [facility] Results Test Description Test Time Test Comments Results Result Comments Source URINALYSIS COMPLETE 2019-10-24 01:44:00 Test Item UA COLOR (test code = COLU) Light-Yellow YELLOW UA APPEARANCE (test code = APPU) CLEAR CLEAR UA GLUCOSE DIPSTICK (test code = DGLUU) NEGATIVE mg/dL NEGATIVE UA BILIRUBIN DIPSTICK (test code = BILU) NEGATIVE mg/dL NEGATIVE UA KETONE DIPSTICK (test code = KETU) NEGATIVE mg/dL NEGATIVE UA SPECIFIC GRAVITY (test code = SGU) 1.019 1.001-1.035 UA BLOOD DIPSTICK (test code = CINDY) Negative mg/dL NEGATIVE UA PH DIPSTICK (test code = ANAIS) 5.5 5.0-8.0 UA PROTEIN DIPSTICK (test code = PROU) NEGATIVE mg/dL NEGATIVE UA UROBILINIOGEN DIPSTICK (test code = URO) Normal mg/dL NEGATIVE UA NITRITE DIPSTICK (test code = ESTEVAN) NEGATIVE NEGATIVE UA LEUKOCYTE ESTERASE W REFLEX (test code = LEUUR) NEGATIVE Sunday/uL NEGATIVE UA WBC (test code = WBCU) 0-5 per HPF 0-5 UA RBC (test code = RBCU) 0-2 #/HPF 0-5 UA EPITHELIAL CELLS (test code = EPIU) FEW per HPF FEW UA BACTERIA (test code = BACU) NONE SEEN #/HPF NONE UA MUCUS (test code = MUCU) FEW #/LPF FEW Urine Source? Clean CatchDRUGS OF ABUSE SCREEN [id number] 01:44:00* Test Item Value Reference Range Interpretation Comments URN COCAINE (test code = COCAURN) NEGATIVE <300 ng/mL URN CANNABINOIDS (test code = CANNABURN) NEGATIVE <50 ng/mL URN AMPHETAMINE (test code = AMPHETURN) NEGATIVE <1000 ng/mL URN BARBITURATE (test code = BARBITURN) NEGATIVE <200 ng/mL URN BENZODIAZEPINE (test code = BENZOURN) POSITIVE <200 ng/mL A This test provides only a preliminary test result. A morespecific alternate chemical method must be used in order toobtain a confirmed analytical result. Gas chromatography/mass spectrometry (GC/MS) is thepreferred confirmatory method. Other chemical confirmationmethods are available. Clinical consideration and professional judgment should be applied to any drug of abusetest result, particularly when preliminary positive resultsare used.Unconfirmed screening results must not be used fornon-medical purposes (e.g., employment testing, legaltesting). URN OPIATES (test code = OPIATURN) NEGATIVE <300 ng/mL URN PHENCYCLIDINE (PCP) (test code = PHENCURN) NEGATIVE <25 ng/ mL URN METHADONE (test code = METHAURN) NEGATIVE <300 ng/mL Urine Source? Clean CatchURINALYSIS [id number] 01:35:00* Test Item Value Reference Range Interpretation Comments UA COLOR (test code = COLU) YELLOW UA APPEARANCE (test code = APPU) CLEAR UA BILIRUBIN DIPSTICK (test code = BILU) NEGATIVE UA SPECIFIC GRAVITY (test code = SGU) 1.001-1.035 UA PH DIPSTICK (test code = ANAIS) 5.0-8.0 UA UROBILINIOGEN DIPSTICK (test code = URO) mg/dL 0.0-0.2 UA NITRITE DIPSTICK (test code = ESTEVAN) NEGATIVE UA LEUKOCYTE ESTERASE W REFLEX (test code = LEUUR) NEG ATIVE UA WBC (test code = WBCU) per HPF 0-5 UA RBC (test code = RBCU) per HPF 0-5 UA EPITHELIAL CELLS (test code = EPIU) per HPF Few UA BACTERIA (test code = BACU) per HPF NONE Urine Source? Clean CatchDRUGS OF ABUSE SCREEN [id number] 01:35:00* Test Item Value Reference Range Interpretation Comments URN COCAINE (test code = COCAURN) NEGATIVE <300 ng/mL URN CANNABINOIDS (test code = CANNABURN) NEGATIVE <50 ng/mL URN AMPHETAMINE (test code = AMPHETURN) NEGATIVE <1000 ng/mL URN BARBITURATE (test code = BARBITURN) NEGATIVE <200 ng/mL URN BENZODIAZEPINE (test code = BENZOURN) POSITIVE <200 ng/mL A This test provides only a preliminary test result. A morespecific alternate chemical method must be used in order toobtain a confirmed analytical result. Gas chromatography/mass spectrometry (GC/MS) is thepreferred confirmatory method. Other chemical confirmationmethods are available. Clinical consideration and professional judgment should be applied to any drug of abusetest result, particularly when preliminary positive resultsare used.Unconfirmed screening results must not be used fornon-medical purposes (e.g., employment testing, legaltesting). URN OPIATES (test code = OPIATURN) NEGATIVE <300 ng/mL URN PHENCYCLIDINE (PCP) (test code = PHENCURN) NEGATIVE <25 ng/ mL URN METHADONE (test code = METHAURN) NEGATIVE <300 ng/mL Urine Source? Clean CatchHEPATIC FUNCTION [id number] 20:46:00* Test Item Value Reference Range Interpretation Comments TOTAL PROTEIN (test code = PROT) 7.1 gram/dL 6.4-8.2 N ALBUMIN (test code = ALB) 3.6 g/dL 3.4-5.0 N GLOBULIN (test code = GLOB) 3.5 gram/dL 2.7-4.2 N ALBUMIN/GLOBULIN RATIO (test code = A/G) 1.0 0.75-1.50 N BILIRUBIN TOTAL (test code = BILT) 0.20 mg/dL 0.0-1.0 N BILIRUBIN DIRECT (test code = BILD) 0.08 mg/dL 0.0-0.20 N SGOT/AST (test code = AST) 119 IUnit/L 15-37 H SGPT/ALT (test code = ALT) 84 IUnit/L 12-78 H ALKALINE PHOSPHATASE TOTAL (test code = ALKP) 109 IUnit/L 45-117 N Note change in reference range due to change in reagent. [id number] 20:46:00* Test Item Value Reference Range Interpretation Comments ALCOHOL (test code = ALC) 411 mg/dL 0.0-3.0 H -- INTERPRETIVE DATA NOTE: POSITIVE SCREENING RESULTS SHOULD BE CONSIDERED PRESUMPTIVE.WHEN COLLECTED FOR MEDICAL PURPOSES ONLY. SPECIMEN WILL NOTBE COLLECTED BY CHAIN OF CUSTODY.IF A CONFIRMATION OF POSITIVE RESULTS IS DESIRED, ACONFIRMATION TEST MUST BE REQUESTED BY THE PHYSICIAN AT ANADDITIONAL CHARGE TO THE PATIENT. BASIC METABOLIC [id number] 20:44:00* Test Item Value Reference Range Interpretation Comments SODIUM (test code = NA) 146 mmol/L 136-145 H POTASSIUM (test code = K) 3.7 mmol/L 3.5-5.1 N CHLORIDE (test code = CL) 111.0 mmol/L 98-107 H CARBON DIOXIDE (test code = CO2) 28.0 mmol/L 21-32 N ANION GAP (test code = GAP) 10.7 10-20 N GLUCOSE (test code = GLU) 77 mg/dL 74-106 N BLOOD UREA NITROGEN (test code = BUN) 11 mg/dL 7-18 N GLOMERULAR FILTRATION RATE (test code = GFR) > 60 mL/min >=60 Estimated GFR by using Modified MDRD formula.Chronic kidney disease is defined as either kidney damageor GFR <60 mL/min/1.73 m2 for >3 months. CREATININE (test code = CREAT) 0.70 mg/dL 0.55-1.02 N Note change in reference range due to change in reagent. BUN/CREATININE RATIO (test code = BUN/CREA) 15.3 10-20 N CALCIUM (test code = CA) 8.0 mg/dL 8.5-10.1 L [id number] 20:44:00* Test Item Value Reference Range Interpretation Comments MAGNESIUM (test code = MAG) 2.3 mg/dL 1.8-2.4 N HCG SERUM [id number] 20:44:00* Test Item Value Reference Range Interpretation Comments HCG SERUM QUAL (test code = HCGQL) NEGATIVE NEGATIVE This HCGQL test is NOT applicable for MALE patients.Check with nurse about probable order error.If Tumor Marker Test needed, nurse should order test "HCGTU"(Test #550.82461) [id number] 20:44:00* Test Item Value Reference Range Interpretation Comments TROPONIN-I (test code = TROPI) <0.015 ng/mL 0-0.045 N BASIC METABOLIC [id number] 20:39:00* Test Item Value Reference Range Interpretation Comments SODIUM (test code = NA) 146 mmol/L 136-145 H POTASSIUM (test code = K) 3.7 mmol/L 3.5-5.1 N CHLORIDE (test code = CL) 111.0 mmol/L 98-107 H CARBON DIOXIDE (test code = CO2) mmol/L 21-32 ANION GAP (test code = GAP) 10-20 GLUCOSE (test code = GLU) mg/dL 74-106 BLOOD UREA NITROGEN (test code = BUN) mg/dL 7-18 GLOMERULAR FILTRATION RATE (test code = GFR) mL/min >=60 CREATININE (test code = CREAT) mg/dL 0.55-1.02 BUN/CREATININE RATIO (test code = BUN/CREA) 10-20 CALCIUM (test code = CA) mg/dL 8.5-10.1 [id number] 20:39:00* Test Item Value Reference Range Interpretation Comments MAGNESIUM (test code = MAG) mg/dL 1.8-2.4 HCG SERUM [id number] 20:39:00* Test Item Value Reference Range Interpretation Comments HCG SERUM QUAL (test code = HCGQL) NEGATIVE [id number] 20:39:00* Test Item Value Reference Range Interpretation Comments TROPONIN-I (test code = TROPI) ng/mL 0-0.045 BASIC METABOLIC [id number] 20:39:00* Test Item Value Reference Range Interpretation Comments SODIUM (test code = NA) 146 mmol/L 136-145 H POTASSIUM (test code = K) 3.7 mmol/L 3.5-5.1 N CHLORIDE (test code = CL) 111.0 mmol/L 98-107 H CARBON DIOXIDE (test code = CO2) mmol/L 21-32 ANION GAP (test code = GAP) 10-20 GLUCOSE (test code = GLU) mg/dL 74-106 BLOOD UREA NITROGEN (test code = BUN) mg/dL 7-18 GLOMERULAR FILTRATION RATE (test code = GFR) mL/min >=60 CREATININE (test code = CREAT) mg/dL 0.55-1.02 BUN/CREATININE RATIO (test code = BUN/CREA) 10-20 CALCIUM (test code = CA) mg/dL 8.5-10.1 [id number] 20:39:00* Test Item Value Reference Range Interpretation Comments MAGNESIUM (test code = MAG) mg/dL 1.8-2.4 HCG SERUM [id number] 20:39:00* Test Item Value Reference Range Interpretation Comments HCG SERUM QUAL (test code = HCGQL) NEGATIVE NEGATIVE This HCGQL test is NOT applicable for MALE patients.Check with nurse about probable order error.If Tumor Marker Test needed, nurse should order test "HCGTU"(Test #550.41242) [id number] 20:39:00* Test Item Value Reference Range Interpretation Comments TROPONIN-I (test code = TROPI) ng/mL 0-0.045 CBC W/O [id number] 20:30:00* Test Item Value Reference Range Interpretation Comments WHITE BLOOD CELL (test code = WBC) K/mm3 4.5-12.5 RED BLOOD CELL (test code = RBC) mill/mm3 3.7-5.2 HEMOGLOBIN (test code = HGB) 13.0 gram/dL 11.5-15.5 N HEMATOCRIT (test code = HCT) 38.3 % 36.0-46.0 N MEAN CELL VOLUME (test code = MCV) fL 80-98 MEAN CELL HGB (test code = MCH) picogram 27.0-33.0 MEAN CELL HGB CONCETRATION (test code = MCHC) gram/dL 33.0-36. 0 RED CELL DISTRIBUTION WIDTH (test code = RDW) % 11.6-16. 2 PLATELET COUNT (test code = PLT) 189 K/mm3 150-450 N MEAN PLATELET VOLUME (test code = MPV) fL 6.7-11.0 CBC W/O [id number] 20:30:00* Test Item Value Reference Range Interpretation Comments WHITE BLOOD CELL (test code = WBC) 3.9 K/mm3 4.5-12.5 L RED BLOOD CELL (test code = RBC) 4.06 mill/mm3 3.7-5.2 N HEMOGLOBIN (test code = HGB) 13.0 gram/dL 11.5-15.5 N HEMATOCRIT (test code = HCT) 38.3 % 36.0-46.0 N MEAN CELL VOLUME (test code = MCV) 94.3 fL 80-98 N MEAN CELL HGB (test code = MCH) 32.0 picogram 27.0-33.0 N MEAN CELL HGB CONCETRATION (test code = MCHC) 33.9 gram/dL 33.0-36. 0 N RED CELL DISTRIBUTION WIDTH (test code = RDW) 13.9 % 11.6-16. 2 N PLATELET COUNT (test code = PLT) 189 K/mm3 150-450 N MEAN PLATELET VOLUME (test code = MPV) 9.1 fL 6.7-11.0 N URINALYSIS [id number] 21:57:00* Test Item Value Reference Range Interpretation Comments UA COLOR (test code = COLU) COLORLESS YELLOW A UA APPEARANCE (test code = APPU) CLEAR CLEAR UA GLUCOSE DIPSTICK (test code = DGLUU) NEGATIVE mg/dL NEGATIVE UA BILIRUBIN DIPSTICK (test code = BILU) NEGATIVE mg/dL NEGATIVE UA KETONE DIPSTICK (test code = KETU) NEGATIVE mg/dL NEGATIVE UA SPECIFIC GRAVITY (test code = SGU) 1.004 1.001-1.035 UA BLOOD DIPSTICK (test code = CINDY) Negative mg/dL NEGATIVE UA PH DIPSTICK (test code = ANAIS) 6.5 5.0-8.0 UA PROTEIN DIPSTICK (test code = PROU) NEGATIVE mg/dL NEGATIVE UA UROBILINIOGEN DIPSTICK (test code = URO) Normal mg/dL NEGATIVE UA NITRITE DIPSTICK (test code = ESTEVAN) NEGATIVE NEGATIVE UA LEUKOCYTE ESTERASE W REFLEX (test code = LEUUR) NEGATIVE Sunday/uL NEGATIVE UA WBC (test code = WBCU) NONE SEEN per HPF 0-5 UA RBC (test code = RBCU) NONE SEEN #/HPF 0-5 UA EPITHELIAL CELLS (test code = EPIU) FEW per HPF FEW UA BACTERIA (test code = BACU) NONE SEEN #/HPF NONE Urine Source? Clean CatchDRUGS OF ABUSE SCREEN [id number] 21:57:00* Test Item Value Reference Range Interpretation Comments URN COCAINE (test code = COCAURN) NEGATIVE <300 ng/mL URN CANNABINOIDS (test code = CANNABURN) NEGATIVE <50 ng/mL URN AMPHETAMINE (test code = AMPHETURN) NEGATIVE <1000 ng/mL URN BARBITURATE (test code = BARBITURN) NEGATIVE <200 ng/mL URN BENZODIAZEPINE (test code = BENZOURN) POSITIVE <200 ng/mL A This test provides only a preliminary test result. A morespecific alternate chemical method must be used in order toobtain a confirmed analytical result. Gas chromatography/mass spectrometry (GC/MS) is thepreferred confirmatory method. Other chemical confirmationmethods are available. Clinical consideration and professional judgment should be applied to any drug of abusetest result, particularly when preliminary positive resultsare used.Unconfirmed screening results must not be used fornon-medical purposes (e.g., employment testing, legaltesting). URN OPIATES (test code = OPIATURN) NEGATIVE <300 ng/mL URN PHENCYCLIDINE (PCP) (test code = PHENCURN) NEGATIVE <25 ng/ mL URN METHADONE (test code = METHAURN) NEGATIVE <300 ng/mL Urine Source? Clean Catch- CT C-SPINE W/O [id number] 21:54:00 Name: MANDY ASCENCIO [facility] : 1985 Age/S: 33 / F [address] Unit #: [id number] Loc: [place] [address] Phys: Mariella Nelson DO Acct: [id number] Di s Date: Status: REG ER PHONE #: Exam Date: 10/11/20192146 FAX #: Reason: Neck Pain EXAMS: CPT CODE: [id number] CT C-SPINE W/O CONTRAST [id number] REASON FOR EXAM: Neck Pain EXAM ORDER DATE: 10/11/2019 8:23 PM Ordering : Lisha Nelson DO Attending:Lisha Nelson DO Location: PROCEDURE: - CT C-SPINE W/O CONTRAST FINDINGS: CT images of the cervical spine were obtained without IV contrast at 2.5mm . Reconstructed coronal and sagittal images were also provided. Dose modu lation, iterative reconstruction, and/or weight based adjustment of the MA /KV was utilized to reduce the radiation dose to as low as reasonably achi evable. The osseous structures are intact. The cent ral canal is patent. The disc spaces are maintained. IMPRESSION: Unremarkable cervical spine at 2154 Reported and signed b y: Toro Reed M.D. CC: Lisha Nelson DO Technologist:Serena Bates RT(R),CT; CTDI: DLP: Trnscb Date/Time: 10/11/2019 (2153) t.[email or web address].VTL Orig Print D/T: S: 10/11/2019 (2157) PAGE 1 Signed Report - CT HEAD/BRAIN W/O [id number] 21:52:00 Name: MANDY ASCENCIO [facility] : 1985 Age/S: 33 / F [address] [facility] Unit #: [id number] Loc: [place] [address] Phys: Mariella Nelson DO Acct: [id number] Di s Date: Status: REG ER PHONE #: Exam Date: 10/11/20192146 FAX #: [phone] Reason: head injury EXAMS: CPT CODE: [id number] CT HEAD/BRAIN W/O CONT [id number] REASON FOR EXAM: head injury EXAM ORDER DATE: 10/11/2019 8:23 PM Orderi ng: Lisah Nelson DO Attending:Lisha Nelson DO Location: PROCEDURE: - CT HEAD/BRAIN W/O CONT COMPARISON: 020 FINDINGS: CT images of the brain were obtained without IV cont rast. Dose modulation, iterative reconstruction, and/or weight based adjustment of the MA/KV was utilized to reduce the radiation dose to as low as reasonably achievable. The brain parenchyma is within norm al limits. The pitts-white matter delineation is unremarkable. The ventricl es, cisterns, and sulci are unremarkable. There is no evidence of hemorrha ge, mass, mass effect. There is no evidence of acute or old infarct. The calvarium is intact. IMPRESSION: Unremarkable brain. at 2151 Reported and signed by: Toro Reed M.D. CC: Lisha Flores DO Technologist:Serena lerma RT(R),CT; CTDI: DLP: Trnscb Date/Time: 10/11/2019 (2151) [email or web address] [email or web address] Orig Print D/T: S: 10/11/2019 (2154) PAGE 1 Signed Report URINALYSIS [id number] 21:29:00* Test Item Value Reference Range Interpretation Comments UA COLOR (test code = COLU) COLORLESS YELLOW A UA APPEARANCE (test code = APPU) CLEAR CLEAR UA GLUCOSE DIPSTICK (test code = DGLUU) NEGATIVE mg/dL NEGATIVE UA BILIRUBIN DIPSTICK (test code = BILU) NEGATIVE mg/dL NEGATIVE UA KETONE DIPSTICK (test code = KETU) NEGATIVE mg/dL NEGATIVE UA SPECIFIC GRAVITY (test code = SGU) 1.004 1.001-1.035 UA BLOOD DIPSTICK (test code = CINDY) Negative mg/dL NEGATIVE UA PH DIPSTICK (test code = ANAIS) 6.5 5.0-8.0 UA PROTEIN DIPSTICK (test code = PROU) NEGATIVE mg/dL NEGATIVE UA UROBILINIOGEN DIPSTICK (test code = URO) Normal mg/dL NEGATIVE UA NITRITE DIPSTICK (test code = ESTEVAN) NEGATIVE NEGATIVE UA LEUKOCYTE ESTERASE W REFLEX (test code = LEUUR) NEGATIVE Sunday/uL NEGATIVE UA WBC (test code = WBCU) NONE SEEN per HPF 0-5 UA RBC (test code = RBCU) NONE SEEN #/HPF 0-5 UA EPITHELIAL CELLS (test code = EPIU) FEW per HPF FEW UA BACTERIA (test code = BACU) NONE SEEN #/HPF NONE Urine Source? Clean CatchDRUGS OF ABUSE SCREEN [id number] 21:29:00* Test Item Value Reference Range Interpretation Comments URN COCAINE (test code = COCAURN) <300 ng/mL URN CANNABINOIDS (test code = CANNABURN) <50 ng/mL URN AMPHETAMINE (test code = AMPHETURN) <1000 ng/mL URN BARBITURATE (test code = BARBITURN) <200 ng/mL URN BENZODIAZEPINE (test code = BENZOURN) <200 ng/mL URN OPIATES (test code = OPIATURN) <300 ng/mL URN PHENCYCLIDINE (PCP) (test code = PHENCURN) <25 ng/ mL URN METHADONE (test code = METHAURN) <300 ng/mL Urine Source? Clean CatchURINALYSIS [id number] 21:26:00* Test Item Value Reference Range Interpretation Comments UA COLOR (test code = COLU) YELLOW UA APPEARANCE (test code = APPU) CLEAR CLEAR UA GLUCOSE DIPSTICK (test code = DGLUU) NEGATIVE mg/dL NEGATIVE UA BILIRUBIN DIPSTICK (test code = BILU) NEGATIVE mg/dL NEGATIVE UA KETONE DIPSTICK (test code = KETU) NEGATIVE mg/dL NEGATIVE UA SPECIFIC GRAVITY (test code = SGU) 1.004 1.001-1.035 UA BLOOD DIPSTICK (test code = CINDY) Negative mg/dL NEGATIVE UA PH DIPSTICK (test code = ANAIS) 6.5 5.0-8.0 UA PROTEIN DIPSTICK (test code = PROU) NEGATIVE mg/dL NEGATIVE UA UROBILINIOGEN DIPSTICK (test code = URO) Normal mg/dL NEGATIVE UA NITRITE DIPSTICK (test code = ESTEVAN) NEGATIVE NEGATIVE UA LEUKOCYTE ESTERASE W REFLEX (test code = LEUUR) NEGATIVE Sunday/uL NEGATIVE UA WBC (test code = WBCU) per HPF 0-5 UA RBC (test code = RBCU) per HPF 0-5 UA EPITHELIAL CELLS (test code = EPIU) per HPF Few UA BACTERIA (test code = BACU) per HPF NONE Urine Source? Clean CatchDRUGS OF ABUSE SCREEN [id number] 21:26:00* Test Item Value Reference Range Interpretation Comments URN COCAINE (test code = COCAURN) <300 ng/mL URN CANNABINOIDS (test code = CANNABURN) <50 ng/mL URN AMPHETAMINE (test code = AMPHETURN) <1000 ng/mL URN BARBITURATE (test code = BARBITURN) <200 ng/mL URN BENZODIAZEPINE (test code = BENZOURN) <200 ng/mL URN OPIATES (test code = OPIATURN) <300 ng/mL URN PHENCYCLIDINE (PCP) (test code = PHENCURN) <25 ng/ mL URN METHADONE (test code = METHAURN) <300 ng/mL Urine Source? Clean CatchBASIC METABOLIC [id number] 21:23:00* Test Item Value Reference Range Interpretation Comments SODIUM (test code = NA) 146 mmol/L 136-145 H POTASSIUM (test code = K) 4.0 mmol/L 3.5-5.1 N CHLORIDE (test code = CL) 111.0 mmol/L 98-107 H CARBON DIOXIDE (test code = CO2) 28.0 mmol/L 21-32 N ANION GAP (test code = GAP) 11.0 10-20 N GLUCOSE (test code = GLU) 86 mg/dL 74-106 N BLOOD UREA NITROGEN (test code = BUN) 5 mg/dL 7-18 L GLOMERULAR FILTRATION RATE (test code = GFR) > 60 mL/min >=60 Estimated GFR by using Modified MDRD formula.Chronic kidney disease is defined as either kidney damageor GFR <60 mL/min/1.73 m2 for >3 months. CREATININE (test code = CREAT) 0.60 mg/dL 0.55-1.02 N Note change in reference range due to change in reagent. BUN/CREATININE RATIO (test code = BUN/CREA) 8.2 10-20 L CALCIUM (test code = CA) 8.4 mg/dL 8.5-10.1 L HEPATIC FUNCTION [id number] 21:23:00* Test Item Value Reference Range Interpretation Comments TOTAL PROTEIN (test code = PROT) 7.7 gram/dL 6.4-8.2 N ALBUMIN (test code = ALB) 3.8 g/dL 3.4-5.0 N GLOBULIN (test code = GLOB) 3.9 gram/dL 2.7-4.2 N ALBUMIN/GLOBULIN RATIO (test code = A/G) 1.0 0.75-1.50 N BILIRUBIN TOTAL (test code = BILT) 0.20 mg/dL 0.0-1.0 N BILIRUBIN DIRECT (test code = BILD) 0.08 mg/dL 0.0-0.20 N SGOT/AST (test code = AST) 27 IUnit/L 15-37 N SGPT/ALT (test code = ALT) 30 IUnit/L 12-78 N ALKALINE PHOSPHATASE TOTAL (test code = ALKP) 113 IUnit/L 45-117 N Note change in reference range due to change in reagent. HCG SERUM [id number] 21:23:00* Test Item Value Reference Range Interpretation Comments HCG SERUM QUAL (test code = HCGQL) NEGATIVE NEGATIVE This HCGQL test is NOT applicable for MALE patients.Check with nurse about probable order error.If Tumor Marker Test needed, nurse should order test "HCGTU"(Test #[id number]) [id number] 21:23:00* Test Item Value Reference Range Interpretation Comments ACETAMINOPHEN (test code = ACET) < 10 mcg/mL 10-30 L A RANGE OF 10-30 mcg/mL IS A THERAPEUTIC RANGE. TOXIC CONCENTRATIONS: >150 mcg/mL AT 4 HOURS AFTER INGESTION >= 50 mcg/mL AT 12 HOURS AFTER INGESTION [id number] 21:23:00* Test Item Value Reference Range Interpretation Comments SALICYLATE (test code = CHRIS) 2.3 mg/dL 2.8-20.0 L [id number] 21:23:00* Test Item Value Reference Range Interpretation Comments ALCOHOL (test code = ALC) 431 mg/dL 0.0-3.0 H -- INTERPRETIVE DATA NOTE: POSITIVE SCREENING RESULTS SHOULD BE CONSIDERED PRESUMPTIVE.WHEN COLLECTED FOR MEDICAL PURPOSES ONLY. SPECIMEN WILL NOTBE COLLECTED BY CHAIN OF CUSTODY.IF A CONFIRMATION OF POSITIVE RESULTS IS DESIRED, ACONFIRMATION TEST MUST BE REQUESTED BY THE PHYSICIAN AT ANADDITIONAL CHARGE TO THE PATIENT. BASIC METABOLIC [id number] 21:21:00* Test Item Value Reference Range Interpretation Comments SODIUM (test code = NA) 146 mmol/L 136-145 H POTASSIUM (test code = K) 4.0 mmol/L 3.5-5.1 N CHLORIDE (test code = CL) 111.0 mmol/L 98-107 H CARBON DIOXIDE (test code = CO2) 28.0 mmol/L 21-32 N ANION GAP (test code = GAP) 11.0 10-20 N GLUCOSE (test code = GLU) 86 mg/dL 74-106 N BLOOD UREA NITROGEN (test code = BUN) 5 mg/dL 7-18 L GLOMERULAR FILTRATION RATE (test code = GFR) > 60 mL/min >=60 Estimated GFR by using Modified MDRD formula.Chronic kidney disease is defined as either kidney damageor GFR <60 mL/min/1.73 m2 for >3 months. CREATININE (test code = CREAT) 0.60 mg/dL 0.55-1.02 N Note change in reference range due to change in reagent. BUN/CREATININE RATIO (test code = BUN/CREA) 8.2 10-20 L CALCIUM (test code = CA) 8.4 mg/dL 8.5-10.1 L HEPATIC FUNCTION [id number] 21:21:00* Test Item Value Reference Range Interpretation Comments TOTAL PROTEIN (test code = PROT) 7.7 gram/dL 6.4-8.2 N ALBUMIN (test code = ALB) 3.8 g/dL 3.4-5.0 N GLOBULIN (test code = GLOB) 3.9 gram/dL 2.7-4.2 N ALBUMIN/GLOBULIN RATIO (test code = A/G) 1.0 0.75-1.50 N BILIRUBIN TOTAL (test code = BILT) 0.20 mg/dL 0.0-1.0 N BILIRUBIN DIRECT (test code = BILD) 0.08 mg/dL 0.0-0.20 N SGOT/AST (test code = AST) 27 IUnit/L 15-37 N SGPT/ALT (test code = ALT) 30 IUnit/L 12-78 N ALKALINE PHOSPHATASE TOTAL (test code = ALKP) 113 IUnit/L 45-117 N Note change in reference range due to change in reagent. HCG SERUM [id number] 21:21:00* Test Item Value Reference Range Interpretation Comments HCG SERUM QUAL (test code = HCGQL) NEGATIVE NEGATIVE This HCGQL test is NOT applicable for MALE patients.Check with nurse about probable order error.If Tumor Marker Test needed, nurse should order test "HCGTU"(Test #550.46013) [id number] 21:21:00* Test Item Value Reference Range Interpretation Comments ACETAMINOPHEN (test code = ACET) < 10 mcg/mL 10-30 L A RANGE OF 10-30 mcg/mL IS A THERAPEUTIC RANGE. TOXIC CONCENTRATIONS: >150 mcg/mL AT 4 HOURS AFTER INGESTION >= 50 mcg/mL AT 12 HOURS AFTER INGESTION [id number] 21:21:00* Test Item Value Reference Range Interpretation Comments SALICYLATE (test code = CHRIS) 2.3 mg/dL 2.8-20.0 L [id number] 21:21:00* Test Item Value Reference Range Interpretation Comments ALCOHOL (test code = ALC) mg/dL 0-3 [id number] 21:14:00* Test Item Value Reference Range Interpretation Comments PHOSPHORUS (test code = PHOS) 3.7 mg/dL 2.5-4.9 N [id number] 21:10:00* Test Item Value Reference Range Interpretation Comments MAGNESIUM (test code = MAG) 2.0 mg/dL 1.8-2.4 N BASIC METABOLIC [id number] 21:09:00* Test Item Value Reference Range Interpretation Comments SODIUM (test code = NA) 146 mmol/L 136-145 H POTASSIUM (test code = K) 4.0 mmol/L 3.5-5.1 N CHLORIDE (test code = CL) 111.0 mmol/L 98-107 H CARBON DIOXIDE (test code = CO2) mmol/L 21-32 ANION GAP (test code = GAP) 10-20 GLUCOSE (test code = GLU) mg/dL 74-106 BLOOD UREA NITROGEN (test code = BUN) mg/dL 7-18 GLOMERULAR FILTRATION RATE (test code = GFR) mL/min >=60 CREATININE (test code = CREAT) mg/dL 0.55-1.02 BUN/CREATININE RATIO (test code = BUN/CREA) 10-20 CALCIUM (test code = CA) mg/dL 8.5-10.1 HEPATIC FUNCTION [id number] 21:09:00* Test Item Value Reference Range Interpretation Comments TOTAL PROTEIN (test code = PROT) gram/dL 6.4-8.2 ALBUMIN (test code = ALB) g/dL 3.4-5.0 GLOBULIN (test code = GLOB) gram/dL 2.7-4.2 ALBUMIN/GLOBULIN RATIO (test code = A/G) 0.75-1.50 BILIRUBIN TOTAL (test code = BILT) mg/dL 0.0-1.0 BILIRUBIN DIRECT (test code = BILD) mg/dL 0.0-0.20 SGOT/AST (test code = AST) IUnit/L 15-37 SGPT/ALT (test code = ALT) IUnit/L 12-78 ALKALINE PHOSPHATASE TOTAL (test code = ALKP) IUnit/L 45-117 HCG SERUM [id number] 21:09:00* Test Item Value Reference Range Interpretation Comments HCG SERUM QUAL (test code = HCGQL) NEGATIVE NEGATIVE This HCGQL test is NOT applicable for MALE patients.Check with nurse about probable order error.If Tumor Marker Test needed, nurse should order test "HCGTU"(Test #550.14424) [id number] 21:09:00* Test Item Value Reference Range Interpretation Comments ACETAMINOPHEN (test code = ACET) mcg/mL 10-30 [id number] 21:09:00* Test Item Value Reference Range Interpretation Comments SALICYLATE (test code = CHRIS) mg/dL 2.8-20.0 [id number] 21:09:00* Test Item Value Reference Range Interpretation Comments ALCOHOL (test code = ALC) mg/dL 0-3 CBC W/O [id number] 21:07:00* Test Item Value Reference Range Interpretation Comments WHITE BLOOD CELL (test code = WBC) 5.6 K/mm3 4.5-12.5 N RED BLOOD CELL (test code = RBC) 3.98 mill/mm3 3.7-5.2 N HEMOGLOBIN (test code = HGB) 12.9 gram/dL 11.5-15.5 N HEMATOCRIT (test code = HCT) 38.1 % 36.0-46.0 N MEAN CELL VOLUME (test code = MCV) 95.7 fL 80-98 N MEAN CELL HGB (test code = MCH) 32.4 picogram 27.0-33.0 N MEAN CELL HGB CONCETRATION (test code = MCHC) 33.9 gram/dL 33.0-36. 0 N RED CELL DISTRIBUTION WIDTH (test code = RDW) 13.6 % 11.6-16. 2 N PLATELET COUNT (test code = PLT) 274 K/mm3 150-450 N MEAN PLATELET VOLUME (test code = MPV) 9.0 fL 6.7-11.0 N BASIC METABOLIC [id number] 21:06:00* Test Item Value Reference Range Interpretation Comments SODIUM (test code = NA) mmol/L 136-145 POTASSIUM (test code = K) mmol/L 3.5-5.1 CHLORIDE (test code = CL) mmol/L 98-107 CARBON DIOXIDE (test code = CO2) mmol/L 21-32 ANION GAP (test code = GAP) 10-20 GLUCOSE (test code = GLU) mg/dL 74-106 BLOOD UREA NITROGEN (test code = BUN) mg/dL 7-18 GLOMERULAR FILTRATION RATE (test code = GFR) mL/min >=60 CREATININE (test code = CREAT) mg/dL 0.55-1.02 BUN/CREATININE RATIO (test code = BUN/CREA) 10-20 CALCIUM (test code = CA) mg/dL 8.5-10.1 HEPATIC FUNCTION [id number] 21:06:00* Test Item Value Reference Range Interpretation Comments TOTAL PROTEIN (test code = PROT) gram/dL 6.4-8.2 ALBUMIN (test code = ALB) g/dL 3.4-5.0 GLOBULIN (test code = GLOB) gram/dL 2.7-4.2 ALBUMIN/GLOBULIN RATIO (test code = A/G) 0.75-1.50 BILIRUBIN TOTAL (test code = BILT) mg/dL 0.0-1.0 BILIRUBIN DIRECT (test code = BILD) mg/dL 0.0-0.20 SGOT/AST (test code = AST) IUnit/L 15-37 SGPT/ALT (test code = ALT) IUnit/L 12-78 ALKALINE PHOSPHATASE TOTAL (test code = ALKP) IUnit/L 45-117 HCG SERUM [id number] 21:06:00* Test Item Value Reference Range Interpretation Comments HCG SERUM QUAL (test code = HCGQL) NEGATIVE NEGATIVE This HCGQL test is NOT applicable for MALE patients.Check with nurse about probable order error.If Tumor Marker Test needed, nurse should order test "HCGTU"(Test #550.76780) [id number] 21:06:00* Test Item Value Reference Range Interpretation Comments ACETAMINOPHEN (test code = ACET) mcg/mL 10-30 [id number] 21:06:00* Test Item Value Reference Range Interpretation Comments SALICYLATE (test code = CHRIS) mg/dL 2.8-20.0 [id number] 21:06:00* Test Item Value Reference Range Interpretation Comments ALCOHOL (test code = ALC) mg/dL 0-3 CBC W/O [id number] 21:04:00* Test Item Value Reference Range Interpretation Comments WHITE BLOOD CELL (test code = WBC) K/mm3 4.5-12.5 RED BLOOD CELL (test code = RBC) mill/mm3 3.7-5.2 HEMOGLOBIN (test code = HGB) 12.9 gram/dL 11.5-15.5 N HEMATOCRIT (test code = HCT) 38.1 % 36.0-46.0 N MEAN CELL VOLUME (test code = MCV) fL 80-98 MEAN CELL HGB (test code = MCH) picogram 27.0-33.0 MEAN CELL HGB CONCETRATION (test code = MCHC) gram/dL 33.0-36. 0 RED CELL DISTRIBUTION WIDTH (test code = RDW) % 11.6-16. 2 PLATELET COUNT (test code = PLT) 274 K/mm3 150-450 N MEAN PLATELET VOLUME (test code = MPV) fL 6.7-11.0 URINALYSIS [id number] 03:11:00* Test Item Value Reference Range Interpretation Comments UA COLOR (test code = COLU) COLORLESS YELLOW A UA APPEARANCE (test code = APPU) CLEAR CLEAR UA GLUCOSE DIPSTICK (test code = DGLUU) NEGATIVE mg/dL NEGATIVE UA BILIRUBIN DIPSTICK (test code = BILU) NEGATIVE mg/dL NEGATIVE UA KETONE DIPSTICK (test code = KETU) NEGATIVE mg/dL NEGATIVE UA SPECIFIC GRAVITY (test code = SGU) 1.009 1.001-1.035 UA BLOOD DIPSTICK (test code = CINDY) Negative mg/dL NEGATIVE UA PH DIPSTICK (test code = ANAIS) 5.5 5.0-8.0 UA PROTEIN DIPSTICK (test code = PROU) NEGATIVE mg/dL NEGATIVE UA UROBILINIOGEN DIPSTICK (test code = URO) Normal mg/dL NEGATIVE UA NITRITE DIPSTICK (test code = ESTEVAN) NEGATIVE NEGATIVE UA LEUKOCYTE ESTERASE W REFLEX (test code = LEUUR) NEGATIVE Sunday/uL NEGATIVE UA WBC (test code = WBCU) 0-5 per HPF 0-5 UA RBC (test code = RBCU) 0-2 #/HPF 0-5 UA EPITHELIAL CELLS (test code = EPIU) FEW per HPF FEW UA BACTERIA (test code = BACU) NONE SEEN #/HPF NONE UA MUCUS (test code = MUCU) FEW #/LPF FEW Urine Source? Clean CatchDRUGS OF ABUSE SCREEN [id number] 03:11:00* Test Item Value Reference Range Interpretation Comments URN COCAINE (test code = COCAURN) NEGATIVE <300 ng/mL URN CANNABINOIDS (test code = CANNABURN) NEGATIVE <50 ng/mL URN AMPHETAMINE (test code = AMPHETURN) NEGATIVE <1000 ng/mL URN BARBITURATE (test code = BARBITURN) NEGATIVE <200 ng/mL URN BENZODIAZEPINE (test code = BENZOURN) POSITIVE <200 ng/mL A This test provides only a preliminary test result. A morespecific alternate chemical method must be used in order toobtain a confirmed analytical result. Gas chromatography/mass spectrometry (GC/MS) is thepreferred confirmatory method. Other chemical confirmationmethods are available. Clinical consideration and professional judgment should be applied to any drug of abusetest result, particularly when preliminary positive resultsare used.Unconfirmed screening results must not be used fornon-medical purposes (e.g., employment testing, legaltesting). URN OPIATES (test code = OPIATURN) NEGATIVE <300 ng/mL URN PHENCYCLIDINE (PCP) (test code = PHENCURN) NEGATIVE <25 ng/ mL URN METHADONE (test code = METHAURN) NEGATIVE <300 ng/mL Urine Source? Clean CatchURINALYSIS [id number] 02:51:00* Test Item Value Reference Range Interpretation Comments UA COLOR (test code = COLU) COLORLESS YELLOW A UA APPEARANCE (test code = APPU) CLEAR CLEAR UA GLUCOSE DIPSTICK (test code = DGLUU) NEGATIVE mg/dL NEGATIVE UA BILIRUBIN DIPSTICK (test code = BILU) NEGATIVE mg/dL NEGATIVE UA KETONE DIPSTICK (test code = KETU) NEGATIVE mg/dL NEGATIVE UA SPECIFIC GRAVITY (test code = SGU) 1.009 1.001-1.035 UA BLOOD DIPSTICK (test code = CINDY) Negative mg/dL NEGATIVE UA PH DIPSTICK (test code = ANAIS) 5.5 5.0-8.0 UA PROTEIN DIPSTICK (test code = PROU) NEGATIVE mg/dL NEGATIVE UA UROBILINIOGEN DIPSTICK (test code = URO) Normal mg/dL NEGATIVE UA NITRITE DIPSTICK (test code = ESTEVAN) NEGATIVE NEGATIVE UA LEUKOCYTE ESTERASE W REFLEX (test code = LEUUR) NEGATIVE Sunday/uL NEGATIVE UA WBC (test code = WBCU) 0-5 per HPF 0-5 UA RBC (test code = RBCU) 0-2 #/HPF 0-5 UA EPITHELIAL CELLS (test code = EPIU) FEW per HPF FEW UA BACTERIA (test code = BACU) NONE SEEN #/HPF NONE UA MUCUS (test code = MUCU) FEW #/LPF FEW Urine Source? Clean CatchDRUGS OF ABUSE SCREEN [id number] 02:51:00* Test Item Value Reference Range Interpretation Comments URN COCAINE (test code = COCAURN) <300 ng/mL URN CANNABINOIDS (test code = CANNABURN) <50 ng/mL URN AMPHETAMINE (test code = AMPHETURN) <1000 ng/mL URN BARBITURATE (test code = BARBITURN) <200 ng/mL URN BENZODIAZEPINE (test code = BENZOURN) <200 ng/mL URN OPIATES (test code = OPIATURN) <300 ng/mL URN PHENCYCLIDINE (PCP) (test code = PHENCURN) <25 ng/ mL URN METHADONE (test code = METHAURN) <300 ng/mL Urine Source? Clean Catch- CT HEAD/BRAIN W/O [id number] 00:49:00 Name: MANDY ASCENCIO [facility] : 1985 Age/S: 33 / F [address] Unit #: [id number] Loc: [place] [address] Phys: Jeremias Raymundo MD Acct: [id number] Di s Date: Status: REG ER PHONE #: Exam Date: 10/07/2019 0044 FAX #: [phone] Reason: HEADACHE EXAMS: CPT CODE: [id number] CT HEAD/BRAIN W/O CONT 94089 EXAM: CT BRAIN WITHOUT CO NTRAST INDICATION: HEADACHE COMPARISON: September 30 0 TECHNIQUE: Routine axial CT images of the brain were obtained wi thout venous contrast. IV contrast: None DLP: 889.13 mGy-cm FINDINGS: No intra-axial or extra-axial fluid collections were identified. No acute intracranial hemorrhage. There is no rmal differentiation of the pitts-white matter. The ventricles and sulci a re normal in size and shape with no midline shift or mass effect. The bas al cisterns are patent. The posterior fossa and 4th ventricle are normal. No calvarial lesions are identified. The paranasal sinuses and mastoid air cells are clear. The orbits and globes are unremarkable. IMPRESSION: No acute intracranial abnormality. No intracranial hemorrhage or mass effect. LOCATION: B2 This CT exam was performed according to our departmental dose opt imization program, which includes automated exposure control, adjustment of the mA and or kV according to patient size and/or use of iterative r econstruction technique. at 0049 Reported and signed by: Anuradha Pacheco M.D. CC: Britta Raymundo MD Technologist:PEDRO CRANDALL RT(R)(CT) CTDI: DLP: Trnscb Date/Time: 10/07/2019 (004) t.BABITAR.M D16 Orig Print D/T: S: 10/07/2019 (005) PAGE 1 Signed Report - CT C-SPINE W/O [id number] 00:48:00 Name: MANDY ASCENCIO [facility] : 1985 Age/S: 33 / F [address] [facility] Unit #: [id number] Loc: [place] [address] Phys: Yesika Raymundo MD Acct: [id number] Dis Date: Status: REG ER PHONE #: [phone] Exam Date: 10/07/201943 FAX #: [phone] Reason: Neck Pain EXAMS: CPT CODE: [id number] CT C-SPINE W/O CONTRAST 07015 Exam: CT C-spine. Location: H 12 History: Neck Pain Technique: Unenhanced spiral slices were taken through the cervical spine. Sagittal and coronal reformations were performed. One or more of the following dose reduction techniques were used: Automated exposure control, adjustment of the mA and/or kV according to patient size, and/or utilization of iterative reconstruction technique. Findings: No fracture or dislocation is seen. The bony cortices are intact. The disc spaces are well preserved. No traumatic canal stenosis or foraminal narrowing is seen. The vertebral bodies demonstrate normal heights. The spine is in good alignment. The surrounding soft tissues are normal. IMPRESSION: Unremarkable exam. at 0048 Reported and signed by: Wolf Frost M.D. CC: Yesika Raymundo MD Technologist:PEDRO CRANDALL RT(R)(CT) CTDI: DLP: Trnscb Date/Time: 10/07/2019 (004) t.SDR.FC Orig Print D/T: S: 10/07/2019 (0052) PAGE 1 Signed Report - XR CHEST 1 [id number] 00:04:00 FAX: Yesika Puente [phone] [place]: St: REG Name: MANDY BARTHOLOMEW [facility] : [birth year] Age/S: 33/F [address] [facility] Unit #: [id number] Loc: [place] [address] Phys: Yesika Raymundo MD Acct: [id number] Dis Date: Status: REG ER PHONE #: [phone] Exam Date: 10/06/2019 2341 FAX #: [phone] Reason: CHEST PAIN EXAMS: CPT CODE: [id number] XR CHEST 1 V 44529 EXAM: - XR CHEST 1 V HISTORY: Chest pain. FINDINGS: Single AP view of the chest is provided. Heart size and vascularity are within normal limits. The lungs are clear of focal consolidation. No effusion, pneumoth orax, or acute osseous abnormality. IMPRESSION: No radiographic evidence of acute cardiopulmonary process. Antoni pollack Signed by Ron Liao MD on 10/07/2019 at 0004 Reported and signed by: Ron Liao MD CC: Britta Raymundo MD Technologist: Armin Patricio RT(R); ANUM GUARDADO RT(R) Trnscrd Date/Time/By: 10/07/2019 (0004) : By : [email or web address] Orig Print D/T: S: 10/07/2019 (0007) PAGE 1 Signed Report BASIC METABOLIC [id number] 00:02:00* Test Item Value Reference Range Interpretation Comments SODIUM (test code = NA) 146 mmol/L 136-145 H POTASSIUM (test code = K) 3.8 mmol/L 3.5-5.1 N CHLORIDE (test code = CL) 114.0 mmol/L 98-107 H CARBON DIOXIDE (test code = CO2) 26.0 mmol/L 21-32 N ANION GAP (test code = GAP) 9.8 10-20 L GLUCOSE (test code = GLU) 81 mg/dL 74-106 N BLOOD UREA NITROGEN (test code = BUN) 7 mg/dL 7-18 N GLOMERULAR FILTRATION RATE (test code = GFR) > 60 mL/min >=60 Estimated GFR by using Modified MDRD formula.Chronic kidney disease is defined as either kidney damageor GFR <60 mL/min/1.73 m2 for >3 months. CREATININE (test code = CREAT) 0.60 mg/dL 0.55-1.02 N Note change in reference range due to change in reagent. BUN/CREATININE RATIO (test code = BUN/CREA) 10.8 10-20 N CALCIUM (test code = CA) 8.3 mg/dL 8.5-10.1 L HEPATIC FUNCTION [id number] 00:02:00* Test Item Value Reference Range Interpretation Comments TOTAL PROTEIN (test code = PROT) 7.9 gram/dL 6.4-8.2 N ALBUMIN (test code = ALB) 3.8 g/dL 3.4-5.0 N GLOBULIN (test code = GLOB) 4.1 gram/dL 2.7-4.2 N ALBUMIN/GLOBULIN RATIO (test code = A/G) 0.9 0.75-1.50 N BILIRUBIN TOTAL (test code = BILT) 0.20 mg/dL 0.0-1.0 N BILIRUBIN DIRECT (test code = BILD) 0.12 mg/dL 0.0-0.20 N SGOT/AST (test code = AST) 51 IUnit/L 15-37 H SGPT/ALT (test code = ALT) 35 IUnit/L 12-78 N ALKALINE PHOSPHATASE TOTAL (test code = ALKP) 105 IUnit/L 45-117 N Note change in reference range due to change in reagent. [id number] 00:02:00* Test Item Value Reference Range Interpretation Comments LIPASE (test code = LIP) 61 U/L 73.0-393.0 L HCG SERUM [id number] 00:02:00* Test Item Value Reference Range Interpretation Comments HCG SERUM QUAL (test code = HCGQL) NEGATIVE NEGATIVE This HCGQL test is NOT applicable for MALE patients.Check with nurse about probable order error.If Tumor Marker Test needed, nurse should order test "HCGTU"(Test #550.58238) [id number] 00:02:00* Test Item Value Reference Range Interpretation Comments ALCOHOL (test code = ALC) 401 mg/dL 0.0-3.0 H -- INTERPRETIVE DATA NOTE: POSITIVE SCREENING RESULTS SHOULD BE CONSIDERED PRESUMPTIVE.WHEN COLLECTED FOR MEDICAL PURPOSES ONLY. SPECIMEN WILL NOTBE COLLECTED BY CHAIN OF CUSTODY.IF A CONFIRMATION OF POSITIVE RESULTS IS DESIRED, ACONFIRMATION TEST MUST BE REQUESTED BY THE PHYSICIAN AT ANADDITIONAL CHARGE TO THE PATIENT. BASIC METABOLIC [id number] 23:36:00* Test Item Value Reference Range Interpretation Comments SODIUM (test code = NA) 146 mmol/L 136-145 H POTASSIUM (test code = K) 3.8 mmol/L 3.5-5.1 N CHLORIDE (test code = CL) 114.0 mmol/L 98-107 H CARBON DIOXIDE (test code = CO2) 26.0 mmol/L 21-32 N ANION GAP (test code = GAP) 9.8 10-20 L GLUCOSE (test code = GLU) 81 mg/dL 74-106 N BLOOD UREA NITROGEN (test code = BUN) 7 mg/dL 7-18 N GLOMERULAR FILTRATION RATE (test code = GFR) > 60 mL/min >=60 Estimated GFR by using Modified MDRD formula.Chronic kidney disease is defined as either kidney damageor GFR <60 mL/min/1.73 m2 for >3 months. CREATININE (test code = CREAT) 0.60 mg/dL 0.55-1.02 N Note change in reference range due to change in reagent. BUN/CREATININE RATIO (test code = BUN/CREA) 10.8 10-20 N CALCIUM (test code = CA) 8.3 mg/dL 8.5-10.1 L HEPATIC FUNCTION [id number] 23:36:00* Test Item Value Reference Range Interpretation Comments TOTAL PROTEIN (test code = PROT) 7.9 gram/dL 6.4-8.2 N ALBUMIN (test code = ALB) 3.8 g/dL 3.4-5.0 N GLOBULIN (test code = GLOB) 4.1 gram/dL 2.7-4.2 N ALBUMIN/GLOBULIN RATIO (test code = A/G) 0.9 0.75-1.50 N BILIRUBIN TOTAL (test code = BILT) 0.20 mg/dL 0.0-1.0 N BILIRUBIN DIRECT (test code = BILD) 0.12 mg/dL 0.0-0.20 N SGOT/AST (test code = AST) 51 IUnit/L 15-37 H SGPT/ALT (test code = ALT) 35 IUnit/L 12-78 N ALKALINE PHOSPHATASE TOTAL (test code = ALKP) 105 IUnit/L 45-117 N Note change in reference range due to change in reagent. [id number] 23:36:00* Test Item Value Reference Range Interpretation Comments LIPASE (test code = LIP) 61 U/L 73.0-393.0 L HCG SERUM [id number] 23:36:00* Test Item Value Reference Range Interpretation Comments HCG SERUM QUAL (test code = HCGQL) NEGATIVE NEGATIVE This HCGQL test is NOT applicable for MALE patients.Check with nurse about probable order error.If Tumor Marker Test needed, nurse should order test "HCGTU"(Test #550.25938) [id number] 23:36:00* Test Item Value Reference Range Interpretation Comments ALCOHOL (test code = ALC) mg/dL 0-3 BASIC METABOLIC [id number] 23:31:00* Test Item Value Reference Range Interpretation Comments SODIUM (test code = NA) 146 mmol/L 136-145 H POTASSIUM (test code = K) 3.8 mmol/L 3.5-5.1 N CHLORIDE (test code = CL) 114.0 mmol/L 98-107 H CARBON DIOXIDE (test code = CO2) 26.0 mmol/L 21-32 N ANION GAP (test code = GAP) 9.8 10-20 L GLUCOSE (test code = GLU) 81 mg/dL 74-106 N BLOOD UREA NITROGEN (test code = BUN) 7 mg/dL 7-18 N GLOMERULAR FILTRATION RATE (test code = GFR) > 60 mL/min >=60 Estimated GFR by using Modified MDRD formula.Chronic kidney disease is defined as either kidney damageor GFR <60 mL/min/1.73 m2 for >3 months. CREATININE (test code = CREAT) 0.60 mg/dL 0.55-1.02 N Note change in reference range due to change in reagent. BUN/CREATININE RATIO (test code = BUN/CREA) 10.8 10-20 N CALCIUM (test code = CA) 8.3 mg/dL 8.5-10.1 L HEPATIC FUNCTION [id number] 23:31:00* Test Item Value Reference Range Interpretation Comments TOTAL PROTEIN (test code = PROT) 7.9 gram/dL 6.4-8.2 N ALBUMIN (test code = ALB) 3.8 g/dL 3.4-5.0 N GLOBULIN (test code = GLOB) 4.1 gram/dL 2.7-4.2 N ALBUMIN/GLOBULIN RATIO (test code = A/G) 0.9 0.75-1.50 N BILIRUBIN TOTAL (test code = BILT) 0.20 mg/dL 0.0-1.0 N BILIRUBIN DIRECT (test code = BILD) 0.12 mg/dL 0.0-0.20 N SGOT/AST (test code = AST) 51 IUnit/L 15-37 H SGPT/ALT (test code = ALT) 35 IUnit/L 12-78 N ALKALINE PHOSPHATASE TOTAL (test code = ALKP) 105 IUnit/L 45-117 N Note change in reference range due to change in reagent. [id number] 23:31:00* Test Item Value Reference Range Interpretation Comments LIPASE (test code = LIP) 61 U/L 73.0-393.0 L HCG SERUM [id number] 23:31:00* Test Item Value Reference Range Interpretation Comments HCG SERUM QUAL (test code = HCGQL) NEGATIVE [id number] 23:31:00* Test Item Value Reference Range Interpretation Comments ALCOHOL (test code = ALC) mg/dL 0-3 CBC W/O [id number] 23:16:00* Test Item Value Reference Range Interpretation Comments WHITE BLOOD CELL (test code = WBC) 6.1 K/mm3 4.5-12.5 N RED BLOOD CELL (test code = RBC) 4.37 mill/mm3 3.7-5.2 N HEMOGLOBIN (test code = HGB) 14.3 gram/dL 11.5-15.5 N HEMATOCRIT (test code = HCT) 42.5 % 36.0-46.0 N MEAN CELL VOLUME (test code = MCV) 97.3 fL 80-98 N MEAN CELL HGB (test code = MCH) 32.7 picogram 27.0-33.0 N MEAN CELL HGB CONCETRATION (test code = MCHC) 33.6 gram/dL 33.0-36. 0 N RED CELL DISTRIBUTION WIDTH (test code = RDW) 14.0 % 11.6-16. 2 N PLATELET COUNT (test code = PLT) 251 K/mm3 150-450 N MEAN PLATELET VOLUME (test code = MPV) 9.2 fL 6.7-11.0 N CBC W/O [id number] 22:58:00* Test Item Value Reference Range Interpretation Comments WHITE BLOOD CELL (test code = WBC) K/mm3 4.5-12.5 RED BLOOD CELL (test code = RBC) mill/mm3 3.7-5.2 HEMOGLOBIN (test code = HGB) 14.3 gram/dL 11.5-15.5 N HEMATOCRIT (test code = HCT) 42.5 % 36.0-46.0 N MEAN CELL VOLUME (test code = MCV) fL 80-98 MEAN CELL HGB (test code = MCH) picogram 27.0-33.0 MEAN CELL HGB CONCETRATION (test code = MCHC) gram/dL 33.0-36. 0 RED CELL DISTRIBUTION WIDTH (test code = RDW) % 11.6-16. 2 PLATELET COUNT (test code = PLT) 251 K/mm3 150-450 N MEAN PLATELET VOLUME (test code = MPV) fL 6.7-11.0 - CT L-SPINE W/O [id number] 16:13:00 Name: MANDY ASCENCIO [facility] : 1985 Age/S: 33 / F [address] [facility] Unit #: [id number] Loc: [place] [id number] Phys: Mai Phillips MD Acct: [id number] Dis Date: Status: ADM IN PHONE #: [phone] Exam Date: 10/03/2019 1415 FAX #: [phone] Reason: H/o recent lumbar Vertebral fracture EXAMS: CPT CODE: [id number] CT L-SPINE W/O CONTRAST [id number] EXAM: CT of the lumbar spine without contrast; INFORMATION: Seizures, EtOH abuse; history of recent lumbar vertebral fracture; TECHNIQUE AND FINDINGS: CT dose reduction protocol; 2.5 mm axial scans; sagittal and coronal reconstructions. There is good alignment of the lumbar spine. Vertebral bodies and posterior elements are intact; no evidence of acute fracture or previous traumatic changes. A small Schmorl's node is seen along the posterior aspect of the inferior endplate of L2. Normal height of i ntervertebral discs. Minimal broad-based posterior and posterior lateral d isc bulge at L4/5, over a distance of 3 mm, without neural foraminal steno sis or spinal stenosis. Otherwise, no evidence of disc herniations. Paravertebral soft tissues are unremarkable. IMPRESSION: 1. No evidence of acute osseous trauma or posttraumatic changes. 2. Sma ll Schmorl's node at L3. 3. Minimal posterior disc bulge at L4/5 without neural foraminal stenosis. Location code: [facility] at 1613 Reported and s igned by: Quentin Ervin M.D. CC: Mai Phillips MD; Vianca Mcgregor MD Technologist:Papa Cobian RT(R),(MR),(CT) CTDI: DLP: Trnscb Date/Time: 10/03/2019 (161) [email or web address] Orig Print D/T: S: 10/03/2019 (1616) PAGE 1 Signed Report [id number] 05:10:00* Test Item Value Reference Range Interpretation Comments PHOSPHORUS (test code = PHOS) 2.5 mg/dL 2.5-4.9 N [id number] 05:10:00* Test Item Value Reference Range Interpretation Comments AMYLASE (test code = ANGELITA) 21 Unit/L 25-115 L [id number] 05:10:00* Test Item Value Reference Range Interpretation Comments MAGNESIUM (test code = MAG) 2.2 mg/dL 1.8-2.4 N VITAMIN [id number] 05:10:00* Test Item Value Reference Range Interpretation Comments VITAMIN B12 (test code = VITB12) 482 pg/mL 193-986 N FOLIC [id number] 05:10:00* Test Item Value Reference Range Interpretation Comments FOLIC ACID (test code = FOL) 107.6 ng/mL 3.10-17.50 H [id number] 04:02:00* Test Item Value Reference Range Interpretation Comments PHOSPHORUS (test code = PHOS) 2.5 mg/dL 2.5-4.9 N [id number] 04:02:00* Test Item Value Reference Range Interpretation Comments AMYLASE (test code = ANGELITA) 21 Unit/L 25-115 L [id number] 04:02:00* Test Item Value Reference Range Interpretation Comments MAGNESIUM (test code = MAG) 2.2 mg/dL 1.8-2.4 N VITAMIN [id number] 04:02:00* Test Item Value Reference Range Interpretation Comments VITAMIN B12 (test code = VITB12) 482 pg/mL 193-986 N FOLIC [id number] 04:02:00* Test Item Value Reference Range Interpretation Comments FOLIC ACID (test code = FOL) ng/mL 3.10-17.50 [id number] 03:24:00* Test Item Value Reference Range Interpretation Comments ALCOHOL (test code = ALC) 224 mg/dL 0.0-3.0 H -- INTERPRETIVE DATA NOTE: POSITIVE SCREENING RESULTS SHOULD BE CONSIDERED PRESUMPTIVE.WHEN COLLECTED FOR MEDICAL PURPOSES ONLY. SPECIMEN WILL NOTBE COLLECTED BY CHAIN OF CUSTODY.IF A CONFIRMATION OF POSITIVE RESULTS IS DESIRED, ACONFIRMATION TEST MUST BE REQUESTED BY THE PHYSICIAN AT ANADDITIONAL CHARGE TO THE PATIENT. [id number] 03:24:00* Test Item Value Reference Range Interpretation Comments AMMONIA (test code = AMM) 33 umol/L 11-32 H URINALYSIS [id number] 00:51:00* Test Item Value Reference Range Interpretation Comments UA COLOR (test code = COLU) COLORLESS YELLOW A UA APPEARANCE (test code = APPU) CLEAR CLEAR UA GLUCOSE DIPSTICK (test code = DGLUU) NEGATIVE mg/dL NEGATIVE UA BILIRUBIN DIPSTICK (test code = BILU) NEGATIVE mg/dL NEGATIVE UA KETONE DIPSTICK (test code = KETU) NEGATIVE mg/dL NEGATIVE UA SPECIFIC GRAVITY (test code = SGU) 1.002 1.001-1.035 UA BLOOD DIPSTICK (test code = CINDY) Negative mg/dL NEGATIVE UA PH DIPSTICK (test code = ANAIS) 6.0 5.0-8.0 UA PROTEIN DIPSTICK (test code = PROU) NEGATIVE mg/dL NEGATIVE UA UROBILINIOGEN DIPSTICK (test code = URO) Normal mg/dL NEGATIVE UA NITRITE DIPSTICK (test code = ESTEVAN) NEGATIVE NEGATIVE UA LEUKOCYTE ESTERASE W REFLEX (test code = LEUUR) NEGATIVE Sunday/uL NEGATIVE UA WBC (test code = WBCU) 0-5 per HPF 0-5 UA RBC (test code = RBCU) 0-5 #/HPF 0-5 UA EPITHELIAL CELLS (test code = EPIU) FEW per HPF FEW UA BACTERIA (test code = BACU) NONE SEEN #/HPF NONE UA MUCUS (test code = MUCU) FEW #/LPF FEW Urine Source? Clean CatchDRUGS OF ABUSE SCREEN [id number] 00:51:00* Test Item Value Reference Range Interpretation Comments URN COCAINE (test code = COCAURN) NEGATIVE <300 ng/mL URN CANNABINOIDS (test code = CANNABURN) NEGATIVE <50 ng/mL URN AMPHETAMINE (test code = AMPHETURN) NEGATIVE <1000 ng/mL URN BARBITURATE (test code = BARBITURN) NEGATIVE <200 ng/mL URN BENZODIAZEPINE (test code = BENZOURN) POSITIVE <200 ng/mL A This test provides only a preliminary test result. A morespecific alternate chemical method must be used in order toobtain a confirmed analytical result. Gas chromatography/mass spectrometry (GC/MS) is thepreferred confirmatory method. Other chemical confirmationmethods are available. Clinical consideration and professional judgment should be applied to any drug of abusetest result, particularly when preliminary positive resultsare used.Unconfirmed screening results must not be used fornon-medical purposes (e.g., employment testing, legaltesting). URN OPIATES (test code = OPIATURN) NEGATIVE <300 ng/mL URN PHENCYCLIDINE (PCP) (test code = PHENCURN) NEGATIVE <25 ng/ mL URN METHADONE (test code = METHAURN) NEGATIVE <300 ng/mL Urine Source? Clean CatchBASIC METABOLIC [id number] 00:51:00* Test Item Value Reference Range Interpretation Comments SODIUM (test code = NA) 141 mmol/L 136-145 N POTASSIUM (test code = K) 3.9 mmol/L 3.5-5.1 N CHLORIDE (test code = CL) 109.0 mmol/L 98-107 H CARBON DIOXIDE (test code = CO2) 23.0 mmol/L 21-32 N ANION GAP (test code = GAP) 12.9 10-20 N GLUCOSE (test code = GLU) 86 mg/dL 74-106 N BLOOD UREA NITROGEN (test code = BUN) 4 mg/dL 7-18 L GLOMERULAR FILTRATION RATE (test code = GFR) > 60 mL/min >=60 Estimated GFR by using Modified MDRD formula.Chronic kidney disease is defined as either kidney damageor GFR <60 mL/min/1.73 m2 for >3 months. CREATININE (test code = CREAT) 0.60 mg/dL 0.55-1.02 N Note change in reference range due to change in reagent. BUN/CREATININE RATIO (test code = BUN/CREA) 6.3 10-20 L CALCIUM (test code = CA) 8.4 mg/dL 8.5-10.1 L HEPATIC FUNCTION [id number] 00:51:00* Test Item Value Reference Range Interpretation Comments TOTAL PROTEIN (test code = PROT) 7.1 gram/dL 6.4-8.2 N ALBUMIN (test code = ALB) 3.3 g/dL 3.4-5.0 L GLOBULIN (test code = GLOB) 3.8 gram/dL 2.7-4.2 N ALBUMIN/GLOBULIN RATIO (test code = A/G) 0.9 0.75-1.50 N BILIRUBIN TOTAL (test code = BILT) 0.50 mg/dL 0.0-1.0 N BILIRUBIN DIRECT (test code = BILD) 0.14 mg/dL 0.0-0.20 N SGOT/AST (test code = AST) 41 IUnit/L 15-37 H SGPT/ALT (test code = ALT) 30 IUnit/L 12-78 N ALKALINE PHOSPHATASE TOTAL (test code = ALKP) 110 IUnit/L 45-117 N Note change in reference range due to change in reagent. CREATINE KINASE (CK)2019-10-02 00:51:00* Test Item Value Reference Range Interpretation Comments CREATINE KINASE (CK) (test code = CK) 579 IUnit/L 26-208 H [id number] 00:51:00* Test Item Value Reference Range Interpretation Comments LIPASE (test code = LIP) 103 U/L 73.0-393.0 N HCG SERUM [id number] 00:51:00* Test Item Value Reference Range Interpretation Comments HCG SERUM QUAL (test code = HCGQL) NEGATIVE NEGATIVE This HCGQL test is NOT applicable for MALE patients.Check with nurse about probable order error.If Tumor Marker Test needed, nurse should order test "HCGTU"(Test #550.98064) [id number] 00:51:00* Test Item Value Reference Range Interpretation Comments TROPONIN-I (test code = TROPI) <0.015 ng/mL 0-0.045 N [id number] 00:51:00* Test Item Value Reference Range Interpretation Comments ALCOHOL (test code = ALC) 288 mg/dL 0.0-3.0 H -- INTERPRETIVE DATA NOTE: POSITIVE SCREENING RESULTS SHOULD BE CONSIDERED PRESUMPTIVE.WHEN COLLECTED FOR MEDICAL PURPOSES ONLY. SPECIMEN WILL NOTBE COLLECTED BY CHAIN OF CUSTODY.IF A CONFIRMATION OF POSITIVE RESULTS IS DESIRED, ACONFIRMATION TEST MUST BE REQUESTED BY THE PHYSICIAN AT ANADDITIONAL CHARGE TO THE PATIENT. URINALYSIS [id number] 00:24:00* Test Item Value Reference Range Interpretation Comments UA COLOR (test code = COLU) COLORLESS YELLOW A UA APPEARANCE (test code = APPU) CLEAR CLEAR UA GLUCOSE DIPSTICK (test code = DGLUU) NEGATIVE mg/dL NEGATIVE UA BILIRUBIN DIPSTICK (test code = BILU) NEGATIVE mg/dL NEGATIVE UA KETONE DIPSTICK (test code = KETU) NEGATIVE mg/dL NEGATIVE UA SPECIFIC GRAVITY (test code = SGU) 1.002 1.001-1.035 UA BLOOD DIPSTICK (test code = CINDY) Negative mg/dL NEGATIVE UA PH DIPSTICK (test code = ANAIS) 6.0 5.0-8.0 UA PROTEIN DIPSTICK (test code = PROU) NEGATIVE mg/dL NEGATIVE UA UROBILINIOGEN DIPSTICK (test code = URO) Normal mg/dL NEGATIVE UA NITRITE DIPSTICK (test code = ESTEVAN) NEGATIVE NEGATIVE UA LEUKOCYTE ESTERASE W REFLEX (test code = LEUUR) NEGATIVE Sunday/uL NEGATIVE UA WBC (test code = WBCU) 0-5 per HPF 0-5 UA RBC (test code = RBCU) 0-5 #/HPF 0-5 UA EPITHELIAL CELLS (test code = EPIU) FEW per HPF FEW UA BACTERIA (test code = BACU) NONE SEEN #/HPF NONE UA MUCUS (test code = MUCU) FEW #/LPF FEW Urine Source? Clean CatchDRUGS OF ABUSE SCREEN [id number] 00:24:00* Test Item Value Reference Range Interpretation Comments URN COCAINE (test code = COCAURN) <300 ng/mL URN CANNABINOIDS (test code = CANNABURN) <50 ng/mL URN AMPHETAMINE (test code = AMPHETURN) <1000 ng/mL URN BARBITURATE (test code = BARBITURN) <200 ng/mL URN BENZODIAZEPINE (test code = BENZOURN) <200 ng/mL URN OPIATES (test code = OPIATURN) <300 ng/mL URN PHENCYCLIDINE (PCP) (test code = PHENCURN) <25 ng/ mL URN METHADONE (test code = METHAURN) <300 ng/mL Urine Source? Clean CatchBASIC METABOLIC [id number] 00:18:00* Test Item Value Reference Range Interpretation Comments SODIUM (test code = NA) 141 mmol/L 136-145 N POTASSIUM (test code = K) 3.9 mmol/L 3.5-5.1 N CHLORIDE (test code = CL) 109.0 mmol/L 98-107 H CARBON DIOXIDE (test code = CO2) 23.0 mmol/L 21-32 N ANION GAP (test code = GAP) 12.9 10-20 N GLUCOSE (test code = GLU) 86 mg/dL 74-106 N BLOOD UREA NITROGEN (test code = BUN) 4 mg/dL 7-18 L GLOMERULAR FILTRATION RATE (test code = GFR) > 60 mL/min >=60 Estimated GFR by using Modified MDRD formula.Chronic kidney disease is defined as either kidney damageor GFR <60 mL/min/1.73 m2 for >3 months. CREATININE (test code = CREAT) 0.60 mg/dL 0.55-1.02 N Note change in reference range due to change in reagent. BUN/CREATININE RATIO (test code = BUN/CREA) 6.3 10-20 L CALCIUM (test code = CA) 8.4 mg/dL 8.5-10.1 L HEPATIC FUNCTION [id number] 00:18:00* Test Item Value Reference Range Interpretation Comments TOTAL PROTEIN (test code = PROT) 7.1 gram/dL 6.4-8.2 N ALBUMIN (test code = ALB) 3.3 g/dL 3.4-5.0 L GLOBULIN (test code = GLOB) 3.8 gram/dL 2.7-4.2 N ALBUMIN/GLOBULIN RATIO (test code = A/G) 0.9 0.75-1.50 N BILIRUBIN TOTAL (test code = BILT) 0.50 mg/dL 0.0-1.0 N BILIRUBIN DIRECT (test code = BILD) 0.14 mg/dL 0.0-0.20 N SGOT/AST (test code = AST) 41 IUnit/L 15-37 H SGPT/ALT (test code = ALT) 30 IUnit/L 12-78 N ALKALINE PHOSPHATASE TOTAL (test code = ALKP) 110 IUnit/L 45-117 N Note change in reference range due to change in reagent. CREATINE KINASE (CK)2019-10-02 00:18:00* Test Item Value Reference Range Interpretation Comments CREATINE KINASE (CK) (test code = CK) 579 IUnit/L 26-208 H [id number] 00:18:00* Test Item Value Reference Range Interpretation Comments LIPASE (test code = LIP) 103 U/L 73.0-393.0 N HCG SERUM [id number] 00:18:00* Test Item Value Reference Range Interpretation Comments HCG SERUM QUAL (test code = HCGQL) NEGATIVE [id number] 00:18:00* Test Item Value Reference Range Interpretation Comments TROPONIN-I (test code = TROPI) <0.015 ng/mL 0-0.045 N [id number] 00:18:00* Test Item Value Reference Range Interpretation Comments ALCOHOL (test code = ALC) 288 mg/dL 0.0-3.0 H -- INTERPRETIVE DATA NOTE: POSITIVE SCREENING RESULTS SHOULD BE CONSIDERED PRESUMPTIVE.WHEN COLLECTED FOR MEDICAL PURPOSES ONLY. SPECIMEN WILL NOTBE COLLECTED BY CHAIN OF CUSTODY.IF A CONFIRMATION OF POSITIVE RESULTS IS DESIRED, ACONFIRMATION TEST MUST BE REQUESTED BY THE PHYSICIAN AT ANADDITIONAL CHARGE TO THE PATIENT. BASIC METABOLIC [id number] 23:57:00* Test Item Value Reference Range Interpretation Comments SODIUM (test code = NA) 141 mmol/L 136-145 N POTASSIUM (test code = K) 3.9 mmol/L 3.5-5.1 N CHLORIDE (test code = CL) 109.0 mmol/L 98-107 H CARBON DIOXIDE (test code = CO2) mmol/L 21-32 ANION GAP (test code = GAP) 10-20 GLUCOSE (test code = GLU) mg/dL 74-106 BLOOD UREA NITROGEN (test code = BUN) mg/dL 7-18 GLOMERULAR FILTRATION RATE (test code = GFR) mL/min >=60 CREATININE (test code = CREAT) mg/dL 0.55-1.02 BUN/CREATININE RATIO (test code = BUN/CREA) 10-20 CALCIUM (test code = CA) mg/dL 8.5-10.1 HEPATIC FUNCTION [id number] 23:57:00* Test Item Value Reference Range Interpretation Comments TOTAL PROTEIN (test code = PROT) gram/dL 6.4-8.2 ALBUMIN (test code = ALB) g/dL 3.4-5.0 GLOBULIN (test code = GLOB) gram/dL 2.7-4.2 ALBUMIN/GLOBULIN RATIO (test code = A/G) 0.75-1.50 BILIRUBIN TOTAL (test code = BILT) mg/dL 0.0-1.0 BILIRUBIN DIRECT (test code = BILD) mg/dL 0.0-0.20 SGOT/AST (test code = AST) IUnit/L 15-37 SGPT/ALT (test code = ALT) IUnit/L 12-78 ALKALINE PHOSPHATASE TOTAL (test code = ALKP) IUnit/L 45-117 CREATINE KINASE (CK)2019-10-01 23:57:00* Test Item Value Reference Range Interpretation Comments CREATINE KINASE (CK) (test code = CK) IUnit/L 26-208 [id number] 23:57:00* Test Item Value Reference Range Interpretation Comments LIPASE (test code = LIP) U/L 73.0-393.0 HCG SERUM [id number] 23:57:00* Test Item Value Reference Range Interpretation Comments HCG SERUM QUAL (test code = HCGQL) NEGATIVE [id number] 23:57:00* Test Item Value Reference Range Interpretation Comments TROPONIN-I (test code = TROPI) ng/mL 0-0.045 [id number] 23:57:00* Test Item Value Reference Range Interpretation Comments ALCOHOL (test code = ALC) mg/dL 0-3 CBC W/O [id number] 23:46:00* Test Item Value Reference Range Interpretation Comments WHITE BLOOD CELL (test code = WBC) 4.5 K/mm3 4.5-12.5 N RED BLOOD CELL (test code = RBC) 3.94 mill/mm3 3.7-5.2 N HEMOGLOBIN (test code = HGB) 12.9 gram/dL 11.5-15.5 N HEMATOCRIT (test code = HCT) 38.1 % 36.0-46.0 N MEAN CELL VOLUME (test code = MCV) 96.7 fL 80-98 N MEAN CELL HGB (test code = MCH) 32.7 picogram 27.0-33.0 N MEAN CELL HGB CONCETRATION (test code = MCHC) 33.9 gram/dL 33.0-36. 0 N RED CELL DISTRIBUTION WIDTH (test code = RDW) 13.2 % 11.6-16. 2 N PLATELET COUNT (test code = PLT) 237 K/mm3 150-450 N MEAN PLATELET VOLUME (test code = MPV) 8.8 fL 6.7-11.0 N [id number] 23:38:00* Test Item Value Reference Range Interpretation Comments GLUBED (test code = GLUBED) 86 mg/dL 74-106 N Performed by certified decator operator at [facility]3] UR HCG [id number] 12:11:00* Test Item Value Reference Range Interpretation Comments UR HCG QUAL (test code = HCGQLU) NEGATIVE This HCGQL test is NOT applicable for MALE patients.Check with nurse about probable order error.If Tumor Marker Test needed, nurse should order test "HCGTU"(Test #550.75406) DRUGS OF ABUSE SCREEN [id number] 12:11:00* Test Item Value Reference Range Interpretation Comments UA PH DIPSTICK (test code = ANAIS) 6.0 5.0-8.0 URN COCAINE (test code = COCAURN) NEGATIVE <300 ng/mL URN CANNABINOIDS (test code = CANNABURN) NEGATIVE <50 ng/mL URN AMPHETAMINE (test code = AMPHETURN) NEGATIVE <1000 ng/mL URN BARBITURATE (test code = BARBITURN) NEGATIVE <200 ng/mL URN BENZODIAZEPINE (test code = BENZOURN) POSITIVE <200 ng/mL A This test provides only a preliminary test result. A morespecific alternate chemical method must be used in order toobtain a confirmed analytical result. Gas chromatography/mass spectrometry (GC/MS) is thepreferred confirmatory method. Other chemical confirmationmethods are available. Clinical consideration and professional judgment should be applied to any drug of abusetest result, particularly when preliminary positive resultsare used.Unconfirmed screening results must not be used fornon-medical purposes (e.g., employment testing, legaltesting). URN OPIATES (test code = OPIATURN) NEGATIVE <300 ng/mL URN PHENCYCLIDINE (PCP) (test code = PHENCURN) NEGATIVE <25 ng/ mL URN METHADONE (test code = METHAURN) NEGATIVE <300 ng/mL UR HCG [id number] 11:35:00* Test Item Value Reference Range Interpretation Comments UR HCG QUAL (test code = HCGQLU) NEGATIVE This HCGQL test is NOT applicable for MALE patients.Check with nurse about probable order error.If Tumor Marker Test needed, nurse should order test "HCGTU"(Test #550.13239) DRUGS OF ABUSE SCREEN [id number] 11:35:00* Test Item Value Reference Range Interpretation Comments UA PH DIPSTICK (test code = ANAIS) 6.0 5.0-8.0 URN COCAINE (test code = COCAURN) <300 ng/mL URN CANNABINOIDS (test code = CANNABURN) <50 ng/mL URN AMPHETAMINE (test code = AMPHETURN) <1000 ng/mL URN BARBITURATE (test code = BARBITURN) <200 ng/mL URN BENZODIAZEPINE (test code = BENZOURN) <200 ng/mL URN OPIATES (test code = OPIATURN) <300 ng/mL URN PHENCYCLIDINE (PCP) (test code = PHENCURN) <25 ng/ mL URN METHADONE (test code = METHAURN) <300 ng/mL COMPREHENSIVE METABOLIC [id number] 09:10:00* Test Item Value Reference Range Interpretation Comments SODIUM (test code = NA) 141 mmol/L 136-145 N POTASSIUM (test code = K) 4.3 mmol/L 3.5-5.1 N CHLORIDE (test code = CL) 108.0 mmol/L 98-107 H CARBON DIOXIDE (test code = CO2) 27.0 mmol/L 21-32 N ANION GAP (test code = GAP) 10.3 10-20 N GLUCOSE (test code = GLU) 79 mg/dL 74-106 N BLOOD UREA NITROGEN (test code = BUN) 10 mg/dL 7-18 N GLOMERULAR FILTRATION RATE (test code = GFR) > 60 mL/min >=60 Estimated GFR by using Modified MDRD formula.Chronic kidney disease is defined as either kidney damageor GFR <60 mL/min/1.73 m2 for >3 months. CREATININE (test code = CREAT) 0.50 mg/dL 0.55-1.02 L Note change in reference range due to change in reagent. BUN/CREATININE RATIO (test code = BUN/CREA) 19.2 10-20 N TOTAL PROTEIN (test code = PROT) 5.9 gram/dL 6.4-8.2 L ALBUMIN (test code = ALB) 3.0 g/dL 3.4-5.0 L GLOBULIN (test code = GLOB) 2.9 gram/dL 2.7-4.2 N ALBUMIN/GLOBULIN RATIO (test code = A/G) 1.0 0.75-1.50 N CALCIUM (test code = CA) 8.1 mg/dL 8.5-10.1 L BILIRUBIN TOTAL (test code = BILT) 0.60 mg/dL 0.0-1.0 N SGOT/AST (test code = AST) 38 IUnit/L 15-37 H SGPT/ALT (test code = ALT) 28 IUnit/L 12-78 N ALKALINE PHOSPHATASE TOTAL (test code = ALKP) 93 IUnit/L 45-117 N Note change in reference range due to change in reagent. [id number] 09:10:00* Test Item Value Reference Range Interpretation Comments PHOSPHORUS (test code = PHOS) 3.0 mg/dL 2.5-4.9 N [id number] 09:10:00* Test Item Value Reference Range Interpretation Comments MAGNESIUM (test code = MAG) 1.9 mg/dL 1.8-2.4 N VITAMIN [id number] 09:10:00* Test Item Value Reference Range Interpretation Comments VITAMIN B12 (test code = VITB12) 259 pg/mL 193-986 N FOLIC [id number] 09:10:00* Test Item Value Reference Range Interpretation Comments FOLIC ACID (test code = FOL) 12.4 ng/mL 3.10-17.50 N THYROID STIMULATING [id number] 09:10:00* Test Item Value Reference Range Interpretation Comments THYROID STIMULATING HORMONE (test code = TSH) 1.480 uIU/mL 0.36-3.7 4 N TSH REFERENCE RANGES: EUTHYROID: 0.35 - 4.3 mIU/mL HYPO : > 5.5 mIU/mL HYPER : < 0.35 mIU/mL [id number] 09:10:00* Test Item Value Reference Range Interpretation Comments ALCOHOL (test code = ALC) < 3 mg/dL 0.0-3.0 N -- INTERPRETIVE DATA NOTE: POSITIVE SCREENING RESULTS SHOULD BE CONSIDERED PRESUMPTIVE.WHEN COLLECTED FOR MEDICAL PURPOSES ONLY. SPECIMEN WILL NOTBE COLLECTED BY CHAIN OF CUSTODY.IF A CONFIRMATION OF POSITIVE RESULTS IS DESIRED, ACONFIRMATION TEST MUST BE REQUESTED BY THE PHYSICIAN AT ANADDITIONAL CHARGE TO THE PATIENT. COMPREHENSIVE METABOLIC [id number] 08:39:00* Test Item Value Reference Range Interpretation Comments SODIUM (test code = NA) 141 mmol/L 136-145 N POTASSIUM (test code = K) 4.3 mmol/L 3.5-5.1 N CHLORIDE (test code = CL) 108.0 mmol/L 98-107 H CARBON DIOXIDE (test code = CO2) mmol/L 21-32 ANION GAP (test code = GAP) 10-20 GLUCOSE (test code = GLU) mg/dL 74-106 BLOOD UREA NITROGEN (test code = BUN) mg/dL 7-18 GLOMERULAR FILTRATION RATE (test code = GFR) mL/min >=60 CREATININE (test code = CREAT) mg/dL 0.55-1.02 BUN/CREATININE RATIO (test code = BUN/CREA) 10-20 TOTAL PROTEIN (test code = PROT) gram/dL 6.4-8.2 ALBUMIN (test code = ALB) g/dL 3.4-5.0 GLOBULIN (test code = GLOB) gram/dL 2.7-4.2 ALBUMIN/GLOBULIN RATIO (test code = A/G) 0.75-1.50 CALCIUM (test code = CA) mg/dL 8.5-10.1 BILIRUBIN TOTAL (test code = BILT) mg/dL 0.0-1.0 SGOT/AST (test code = AST) IUnit/L 15-37 SGPT/ALT (test code = ALT) IUnit/L 12-78 ALKALINE PHOSPHATASE TOTAL (test code = ALKP) IUnit/L 45-117 [id number] 08:39:00* Test Item Value Reference Range Interpretation Comments PHOSPHORUS (test code = PHOS) mg/dL 2.5-4.9 [id number] 08:39:00* Test Item Value Reference Range Interpretation Comments MAGNESIUM (test code = MAG) mg/dL 1.8-2.4 VITAMIN [id number] 08:39:00* Test Item Value Reference Range Interpretation Comments VITAMIN B12 (test code = VITB12) pg/mL 193-986 FOLIC [id number] 08:39:00* Test Item Value Reference Range Interpretation Comments FOLIC ACID (test code = FOL) ng/mL 3.10-17.50 THYROID STIMULATING [id number] 08:39:00* Test Item Value Reference Range Interpretation Comments THYROID STIMULATING HORMONE (test code = TSH) uIU/mL 0.36-3.7 4 [id number] 08:39:00* Test Item Value Reference Range Interpretation Comments ALCOHOL (test code = ALC) mg/dL 0-3 [id number] 08:27:00* Test Item Value Reference Range Interpretation Comments AMYLASE (test code = ANGELITA) 24 Unit/L 25-115 L [id number] 08:27:00* Test Item Value Reference Range Interpretation Comments LIPASE (test code = LIP) 63 U/L 73.0-393.0 L [id number] 07:58:00* Test Item Value Reference Range Interpretation Comments AMMONIA (test code = AMM) 31 umol/L 11-32 N [id number] 07:46:00* Test Item Value Reference Range Interpretation Comments ALCOHOL (test code = ALC) < 3 mg/dL 0.0-3.0 N -- INTERPRETIVE DATA NOTE: POSITIVE SCREENING RESULTS SHOULD BE CONSIDERED PRESUMPTIVE.WHEN COLLECTED FOR MEDICAL PURPOSES ONLY. SPECIMEN WILL NOTBE COLLECTED BY CHAIN OF CUSTODY.IF A CONFIRMATION OF POSITIVE RESULTS IS DESIRED, ACONFIRMATION TEST MUST BE REQUESTED BY THE PHYSICIAN AT ANADDITIONAL CHARGE TO THE PATIENT. PROTHROMBIN [id number] 07:34:00* Test Item Value Reference Range Interpretation Comments PROTHROMBIN TIME PATIENT (test code = PTP) 12.1 seconds 9.0-14.0 N INTERNATIONAL NORMAL RATIO (test code = INR) 1.0 0.8-1.2 N The therapeutic range for oral anticoagulant therapy formost indications is an international normalized ratio (INR)of between 2.0 and 3.0. The recommended therapeutic INRrange for various clinical situations is listed below: Clinical Situation INR range Pulmonary e mbolism treatment (2.0-3.0)Venous thrombosis treatmentVenous thrombosis prophylaxis (high risk surgery)Prevention of systemic embolism from: Acute myocardial infarction Valvular heart disease Atrial fibrillation Mechanical prosthetic heart valves (2.5-3.5) IS PATIENT ON ANTICOAGULANTS? NTHROMBOPLASTIN TIME [id number] 07:34:00* Test Item Value Reference Range Interpretation Comments THROMBOPLASTIN TIME PARTIAL (test code = PTT) 29.7 seconds 23.0-37. 0 N IS PATIENT ON ANTICOAGULANTS? NCBC W/AUTO [id number] 07:30:00* Test Item Value Reference Range Interpretation Comments WHITE BLOOD CELL (test code = WBC) 6.2 K/mm3 4.5-12.5 N RED BLOOD CELL (test code = RBC) 3.99 mill/mm3 3.7-5.2 N HEMOGLOBIN (test code = HGB) 12.7 gram/dL 11.5-15.5 N HEMATOCRIT (test code = HCT) 37.9 % 36.0-46.0 N MEAN CELL VOLUME (test code = MCV) 95.0 fL 80-98 N MEAN CELL HGB (test code = MCH) 31.8 picogram 27.0-33.0 N MEAN CELL HGB CONCETRATION (test code = MCHC) 33.5 gram/dL 33.0-36. 0 N RED CELL DISTRIBUTION WIDTH (test code = RDW) 13.6 % 11.6-16. 2 N RED CELL DISTRIBUTION WIDTH SD (test code = RDW-SD) 47.9 fL 37 .0-51.0 N PLATELET COUNT (test code = PLT) 251 K/mm3 150-450 N MEAN PLATELET VOLUME (test code = MPV) 9.6 fL 6.7-11.0 N NEUTROPHIL % (test code = NT%) 51.9 % 39.0-69.0 N IMMATURE GRANULOCYTE % (test code = IG%) 0.3 % 0.0-5.0 N LYMPHOCYTE % (test code = LY%) 36.1 % 25.0-55.0 N MONOCYTE % (test code = MO%) 9.1 % 0.0-10.0 N EOSINOPHIL % (test code = EO%) 1.5 % 0.0-5.0 N BASOPHIL % (test code = BA%) 1.1 % 0.0-1.0 H NUCLEATED RBC % (test code = NRBC%) 0.0 % 0-0 N NEUTROPHIL # (test code = NT#) 3.21 K/mm3 1.8-7.7 N IMMATURE GRANULOCYTE # (test code = IG#) 0.02 x10 3/uL 0-0.03 N LYMPHOCYTE # (test code = LY#) 2.23 K/mm3 1.0-5.0 N MONOCYTE # (test code = MO#) 0.56 K/mm3 0-0.8 N EOSINOPHIL # (test code = EO#) 0.09 K/mm3 0.0-0.5 N BASOPHIL # (test code = BA#) 0.07 K/mm3 0.0-0.2 N NUCLEATED RBC # (test code = NRBC#) 0.00 K/mm3 0.0-0.1 N MANUAL DIFF REQUIRED (test code = MDIFF) NO - CT HEAD/BRAIN W/O [id number] 04:12:00 Name: MANDY ASCENCIO [facility] : 1985 Age/S: 33 / F [address] [facility] Unit #: [id number] Loc: [place] [address] Phys: Geoffrey Bae MD Acct: [id number] Dis Date: Status: REG ER PHONE #: [phone] Exam Date: 10/01/2019 0402 FAX #: [phone] Reason: multiple seizure EXAMS: CPT CODE: [id number] CT HEAD/BRAIN W/O CONT 51964 EXAM: - CT HEAD/BRAIN W/O CONT LOCATION: C3 HISTORY: 33 years-year old Female with multiple seizure TECHNIQUE: Computerized tomography images from the skull base to the vertex were obtained. Coronal and sagittal reformatted images are provided. This exam was performed according to our departmental dose-optimization program, which includes automated exposure control, adjustment of the mA and/or kV according to patient size and/or use of iterative reconstruction technique COMPARISON: None FINDINGS: Brain: The brain parenchymal architecture is unremarkable. The brain parenchyma is age appropriate. There is no evidence of an acute territorial infarct. Hemorrhage: There is no CT evidence of acute intracranial hemorrhage. Mass/edema: There is no CT evidence of mass effect, midline shift, or parenchymal edema. Ventricles: There is no evidence of hydrocephalus. Bones: There is no evidence of acute displaced calvarial fracture. Sinuses: The visualized portions of the paranasal sinuses and mastoid air cells are free of significant opacification. Other/Soft Ti ssues: Unremarkable. IMPRESSION: 1. No CT ev idence of acute intracranial abnormality. PAGE 1 Signed Report (CONTINUED) Name: MANDY ASCENCIO [facility] : 1985 Age/S: 33 / F [address] [facility] Unit #: [id number] [place]: [place] [address] Phys: Geoffrey Bae MD Acct: [id number] Dis Date: Status: REG ER PHONE #: [phone] Exam Date: 0402 FAX #: [phone] Reason: multiple seizure EXAMS: CPT CODE: [id number] CT HEAD/BRAIN W/O CONT 18402 <Continued> at 0412 Reported and signed by: Cesar Parmar M.D. CC: Geoffrey Bae MD; Edgar Lerma DO Technologist:KECIA DELGADO, RTDavid Blas CTDI: DLP: Trnscb Date/Time: 10/01/2019 (411) [email or web address] Orig Print D/T: S: 10/01/2019 (041) PAGE 2 Signed Report [id number] 18:22:00* Test Item Value Reference Range Interpretation Comments ALCOHOL (test code = ALC) 285 mg/dL 0.0-3.0 H -- INTERPRETIVE DATA NOTE: POSITIVE SCREENING RESULTS SHOULD BE CONSIDERED PRESUMPTIVE.WHEN COLLECTED FOR MEDICAL PURPOSES ONLY. SPECIMEN WILL NOTBE COLLECTED BY CHAIN OF CUSTODY.IF A CONFIRMATION OF POSITIVE RESULTS IS DESIRED, ACONFIRMATION TEST MUST BE REQUESTED BY THE PHYSICIAN AT ANADDITIONAL CHARGE TO THE PATIENT.Previously reported result: 391 mg/dLEdited by: MERY on 09/30/19:81949809/30/19 1749: ALCOHOL previously reported as: 391 H mg/dL [id number] 17:17:00* Test Item Value Reference Range Interpretation Comments ALCOHOL (test code = ALC) 391 mg/dL 0.0-3.0 H -- INTERPRETIVE DATA NOTE: POSITIVE SCREENING RESULTS SHOULD BE CONSIDERED PRESUMPTIVE.WHEN COLLECTED FOR MEDICAL PURPOSES ONLY. SPECIMEN WILL NOTBE COLLECTED BY CHAIN OF CUSTODY.IF A CONFIRMATION OF POSITIVE RESULTS IS DESIRED, ACONFIRMATION TEST MUST BE REQUESTED BY THE PHYSICIAN AT ANADDITIONAL CHARGE TO THE PATIENT. URINALYSIS [id number] 11:40:00* Test Item Value Reference Range Interpretation Comments UA COLOR (test code = COLU) COLORLESS YELLOW A UA APPEARANCE (test code = APPU) CLEAR CLEAR UA GLUCOSE DIPSTICK (test code = DGLUU) NEGATIVE mg/dL NEGATIVE UA BILIRUBIN DIPSTICK (test code = BILU) NEGATIVE mg/dL NEGATIVE UA KETONE DIPSTICK (test code = KETU) NEGATIVE mg/dL NEGATIVE UA SPECIFIC GRAVITY (test code = SGU) 1.005 1.001-1.035 UA BLOOD DIPSTICK (test code = CINDY) Negative mg/dL NEGATIVE UA PH DIPSTICK (test code = ANAIS) 6.0 5.0-8.0 UA PROTEIN DIPSTICK (test code = PROU) NEGATIVE mg/dL NEGATIVE UA UROBILINIOGEN DIPSTICK (test code = URO) Normal mg/dL NEGATIVE UA NITRITE DIPSTICK (test code = ESTEVAN) NEGATIVE NEGATIVE UA LEUKOCYTE ESTERASE W REFLEX (test code = LEUUR) NEGATIVE Sunday/uL NEGATIVE UA WBC (test code = WBCU) 0-5 per HPF 0-5 UA RBC (test code = RBCU) 0-2 #/HPF 0-5 UA EPITHELIAL CELLS (test code = EPIU) FEW per HPF FEW UA BACTERIA (test code = BACU) NONE SEEN #/HPF NONE Urine Source? Clean CatchDRUGS OF ABUSE SCREEN [id number] 11:40:00* Test Item Value Reference Range Interpretation Comments URN COCAINE (test code = COCAURN) NEGATIVE <300 ng/mL URN CANNABINOIDS (test code = CANNABURN) NEGATIVE <50 ng/mL URN AMPHETAMINE (test code = AMPHETURN) NEGATIVE <1000 ng/mL URN BARBITURATE (test code = BARBITURN) NEGATIVE <200 ng/mL URN BENZODIAZEPINE (test code = BENZOURN) POSITIVE <200 ng/mL A This test provides only a preliminary test result. A morespecific alternate chemical method must be used in order toobtain a confirmed analytical result. Gas chromatography/mass spectrometry (GC/MS) is thepreferred confirmatory method. Other chemical confirmationmethods are available. Clinical consideration and professional judgment should be applied to any drug of abusetest result, particularly when preliminary positive resultsare used.Unconfirmed screening results must not be used fornon-medical purposes (e.g., employment testing, legaltesting). URN OPIATES (test code = OPIATURN) NEGATIVE <300 ng/mL URN PHENCYCLIDINE (PCP) (test code = PHENCURN) NEGATIVE <25 ng/ mL URN METHADONE (test code = METHAURN) NEGATIVE <300 ng/mL Urine Source? Clean CatchURINALYSIS [id number] 11:37:00* Test Item Value Reference Range Interpretation Comments UA COLOR (test code = COLU) COLORLESS YELLOW A UA APPEARANCE (test code = APPU) CLEAR CLEAR UA GLUCOSE DIPSTICK (test code = DGLUU) NEGATIVE mg/dL NEGATIVE UA BILIRUBIN DIPSTICK (test code = BILU) NEGATIVE mg/dL NEGATIVE UA KETONE DIPSTICK (test code = KETU) NEGATIVE mg/dL NEGATIVE UA SPECIFIC GRAVITY (test code = SGU) 1.005 1.001-1.035 UA BLOOD DIPSTICK (test code = CINDY) Negative mg/dL NEGATIVE UA PH DIPSTICK (test code = ANAIS) 6.0 5.0-8.0 UA PROTEIN DIPSTICK (test code = PROU) NEGATIVE mg/dL NEGATIVE UA UROBILINIOGEN DIPSTICK (test code = URO) Normal mg/dL NEGATIVE UA NITRITE DIPSTICK (test code = ESTEVAN) NEGATIVE NEGATIVE UA LEUKOCYTE ESTERASE W REFLEX (test code = LEUUR) NEGATIVE Sunday/uL NEGATIVE UA WBC (test code = WBCU) per HPF 0-5 UA RBC (test code = RBCU) per HPF 0-5 UA EPITHELIAL CELLS (test code = EPIU) per HPF Few UA BACTERIA (test code = BACU) per HPF NONE Urine Source? Clean CatchDRUGS OF ABUSE SCREEN [id number] 11:37:00* Test Item Value Reference Range Interpretation Comments URN COCAINE (test code = COCAURN) <300 ng/mL URN CANNABINOIDS (test code = CANNABURN) <50 ng/mL URN AMPHETAMINE (test code = AMPHETURN) <1000 ng/mL URN BARBITURATE (test code = BARBITURN) <200 ng/mL URN BENZODIAZEPINE (test code = BENZOURN) <200 ng/mL URN OPIATES (test code = OPIATURN) <300 ng/mL URN PHENCYCLIDINE (PCP) (test code = PHENCURN) <25 ng/ mL URN METHADONE (test code = METHAURN) <300 ng/mL Urine Source? Clean CatchURINALYSIS [id number] 11:37:00* Test Item Value Reference Range Interpretation Comments UA COLOR (test code = COLU) COLORLESS YELLOW A UA APPEARANCE (test code = APPU) CLEAR CLEAR UA GLUCOSE DIPSTICK (test code = DGLUU) NEGATIVE mg/dL NEGATIVE UA BILIRUBIN DIPSTICK (test code = BILU) NEGATIVE mg/dL NEGATIVE UA KETONE DIPSTICK (test code = KETU) NEGATIVE mg/dL NEGATIVE UA SPECIFIC GRAVITY (test code = SGU) 1.005 1.001-1.035 UA BLOOD DIPSTICK (test code = CINDY) Negative mg/dL NEGATIVE UA PH DIPSTICK (test code = ANAIS) 6.0 5.0-8.0 UA PROTEIN DIPSTICK (test code = PROU) NEGATIVE mg/dL NEGATIVE UA UROBILINIOGEN DIPSTICK (test code = URO) Normal mg/dL NEGATIVE UA NITRITE DIPSTICK (test code = ESTEVAN) NEGATIVE NEGATIVE UA LEUKOCYTE ESTERASE W REFLEX (test code = LEUUR) NEGATIVE Sunday/uL NEGATIVE UA WBC (test code = WBCU) 0-5 per HPF 0-5 UA RBC (test code = RBCU) 0-2 #/HPF 0-5 UA EPITHELIAL CELLS (test code = EPIU) FEW per HPF FEW UA BACTERIA (test code = BACU) NONE SEEN #/HPF NONE Urine Source? Clean CatchDRUGS OF ABUSE SCREEN [id number] 11:37:00* Test Item Value Reference Range Interpretation Comments URN COCAINE (test code = COCAURN) <300 ng/mL URN CANNABINOIDS (test code = CANNABURN) <50 ng/mL URN AMPHETAMINE (test code = AMPHETURN) <1000 ng/mL URN BARBITURATE (test code = BARBITURN) <200 ng/mL URN BENZODIAZEPINE (test code = BENZOURN) <200 ng/mL URN OPIATES (test code = OPIATURN) <300 ng/mL URN PHENCYCLIDINE (PCP) (test code = PHENCURN) <25 ng/ mL URN METHADONE (test code = METHAURN) <300 ng/mL Urine Source? Clean CatchBASIC METABOLIC [id number] 10:54:00* Test Item Value Reference Range Interpretation Comments SODIUM (test code = NA) 143 mmol/L 136-145 N POTASSIUM (test code = K) 4.2 mmol/L 3.5-5.1 N CHLORIDE (test code = CL) 111.0 mmol/L 98-107 H CARBON DIOXIDE (test code = CO2) 27.0 mmol/L 21-32 N ANION GAP (test code = GAP) 9.2 10-20 L GLUCOSE (test code = GLU) 76 mg/dL 74-106 N BLOOD UREA NITROGEN (test code = BUN) 11 mg/dL 7-18 N GLOMERULAR FILTRATION RATE (test code = GFR) > 60 mL/min >=60 Estimated GFR by using Modified MDRD formula.Chronic kidney disease is defined as either kidney damageor GFR <60 mL/min/1.73 m2 for >3 months. CREATININE (test code = CREAT) 0.60 mg/dL 0.55-1.02 N Note change in reference range due to change in reagent. BUN/CREATININE RATIO (test code = BUN/CREA) 17.6 10-20 N CALCIUM (test code = CA) 7.6 mg/dL 8.5-10.1 L HEPATIC FUNCTION [id number] 10:54:00* Test Item Value Reference Range Interpretation Comments TOTAL PROTEIN (test code = PROT) 6.8 gram/dL 6.4-8.2 N ALBUMIN (test code = ALB) 3.2 g/dL 3.4-5.0 L GLOBULIN (test code = GLOB) 3.6 gram/dL 2.7-4.2 N ALBUMIN/GLOBULIN RATIO (test code = A/G) 0.9 0.75-1.50 N BILIRUBIN TOTAL (test code = BILT) 0.30 mg/dL 0.0-1.0 N BILIRUBIN DIRECT (test code = BILD) 0.06 mg/dL 0.0-0.20 N SGOT/AST (test code = AST) 40 IUnit/L 15-37 H SGPT/ALT (test code = ALT) 32 IUnit/L 12-78 N ALKALINE PHOSPHATASE TOTAL (test code = ALKP) 97 IUnit/L 45-117 N Note change in reference range due to change in reagent. HCG SERUM [id number] 10:54:00* Test Item Value Reference Range Interpretation Comments HCG SERUM QUAL (test code = HCGQL) NEGATIVE NEGATIVE \\This HCGQL test is NOT applicable for MALE patients.Check with nurse about probable order error.If Tumor Marker Test needed, nurse should order test "HCGTU"(Test #550.48454) [id number] 10:54:00* Test Item Value Reference Range Interpretation Comments ACETAMINOPHEN (test code = ACET) < 10 mcg/mL 10-30 L A RANGE OF 10-30 mcg/mL IS A THERAPEUTIC RANGE. TOXIC CONCENTRATIONS: >150 mcg/mL AT 4 HOURS AFTER INGESTION >= 50 mcg/mL AT 12 HOURS AFTER INGESTION [id number] 10:54:00* Test Item Value Reference Range Interpretation Comments SALICYLATE (test code = CHRIS) 1.9 mg/dL 2.8-20.0 L [id number] 10:54:00* Test Item Value Reference Range Interpretation Comments ALCOHOL (test code = ALC) 393 mg/dL 0.0-3.0 H -- INTERPRETIVE DATA NOTE: POSITIVE SCREENING RESULTS SHOULD BE CONSIDERED PRESUMPTIVE.WHEN COLLECTED FOR MEDICAL PURPOSES ONLY. SPECIMEN WILL NOTBE COLLECTED BY CHAIN OF CUSTODY.IF A CONFIRMATION OF POSITIVE RESULTS IS DESIRED, ACONFIRMATION TEST MUST BE REQUESTED BY THE PHYSICIAN AT ANADDITIONAL CHARGE TO THE PATIENT. BASIC METABOLIC [id number] 10:46:00* Test Item Value Reference Range Interpretation Comments SODIUM (test code = NA) 143 mmol/L 136-145 N POTASSIUM (test code = K) 4.2 mmol/L 3.5-5.1 N CHLORIDE (test code = CL) 111.0 mmol/L 98-107 H CARBON DIOXIDE (test code = CO2) 27.0 mmol/L 21-32 N ANION GAP (test code = GAP) 9.2 10-20 L GLUCOSE (test code = GLU) 76 mg/dL 74-106 N BLOOD UREA NITROGEN (test code = BUN) 11 mg/dL 7-18 N GLOMERULAR FILTRATION RATE (test code = GFR) > 60 mL/min >=60 Estimated GFR by using Modified MDRD formula.Chronic kidney disease is defined as either kidney damageor GFR <60 mL/min/1.73 m2 for >3 months. CREATININE (test code = CREAT) 0.60 mg/dL 0.55-1.02 N Note change in reference range due to change in reagent. BUN/CREATININE RATIO (test code = BUN/CREA) 17.6 10-20 N CALCIUM (test code = CA) 7.6 mg/dL 8.5-10.1 L HEPATIC FUNCTION [id number] 10:46:00* Test Item Value Reference Range Interpretation Comments TOTAL PROTEIN (test code = PROT) 6.8 gram/dL 6.4-8.2 N ALBUMIN (test code = ALB) 3.2 g/dL 3.4-5.0 L GLOBULIN (test code = GLOB) 3.6 gram/dL 2.7-4.2 N ALBUMIN/GLOBULIN RATIO (test code = A/G) 0.9 0.75-1.50 N BILIRUBIN TOTAL (test code = BILT) 0.30 mg/dL 0.0-1.0 N BILIRUBIN DIRECT (test code = BILD) 0.06 mg/dL 0.0-0.20 N SGOT/AST (test code = AST) 40 IUnit/L 15-37 H SGPT/ALT (test code = ALT) 32 IUnit/L 12-78 N ALKALINE PHOSPHATASE TOTAL (test code = ALKP) 97 IUnit/L 45-117 N Note change in reference range due to change in reagent. HCG SERUM [id number] 10:46:00* Test Item Value Reference Range Interpretation Comments HCG SERUM QUAL (test code = HCGQL) NEGATIVE NEGATIVE \\This HCGQL test is NOT applicable for MALE patients.Check with nurse about probable order error.If Tumor Marker Test needed, nurse should order test "HCGTU"(Test #550.86702) [id number] 10:46:00* Test Item Value Reference Range Interpretation Comments ACETAMINOPHEN (test code = ACET) < 10 mcg/mL 10-30 L A RANGE OF 10-30 mcg/mL IS A THERAPEUTIC RANGE. TOXIC CONCENTRATIONS: >150 mcg/mL AT 4 HOURS AFTER INGESTION >= 50 mcg/mL AT 12 HOURS AFTER INGESTION [id number] 10:46:00* Test Item Value Reference Range Interpretation Comments SALICYLATE (test code = CHRIS) 1.9 mg/dL 2.8-20.0 L [id number] 10:46:00* Test Item Value Reference Range Interpretation Comments ALCOHOL (test code = ALC) mg/dL 0-3 CBC W/O [id number] 10:39:00* Test Item Value Reference Range Interpretation Comments WHITE BLOOD CELL (test code = WBC) 9.8 K/mm3 4.5-12.5 N RED BLOOD CELL (test code = RBC) 4.12 mill/mm3 3.7-5.2 N HEMOGLOBIN (test code = HGB) 13.4 gram/dL 11.5-15.5 N HEMATOCRIT (test code = HCT) 40.0 % 36.0-46.0 N MEAN CELL VOLUME (test code = MCV) 97.1 fL 80-98 N MEAN CELL HGB (test code = MCH) 32.5 picogram 27.0-33.0 N MEAN CELL HGB CONCETRATION (test code = MCHC) 33.5 gram/dL 33.0-36. 0 N RED CELL DISTRIBUTION WIDTH (test code = RDW) 14.4 % 11.6-16. 2 N PLATELET COUNT (test code = PLT) 285 K/mm3 150-450 N MEAN PLATELET VOLUME (test code = MPV) 8.6 fL 6.7-11.0 N BASIC METABOLIC [id number] 10:31:00* Test Item Value Reference Range Interpretation Comments SODIUM (test code = NA) 143 mmol/L 136-145 N POTASSIUM (test code = K) 4.2 mmol/L 3.5-5.1 N CHLORIDE (test code = CL) 111.0 mmol/L 98-107 H CARBON DIOXIDE (test code = CO2) mmol/L 21-32 ANION GAP (test code = GAP) 10-20 GLUCOSE (test code = GLU) mg/dL 74-106 BLOOD UREA NITROGEN (test code = BUN) mg/dL 7-18 GLOMERULAR FILTRATION RATE (test code = GFR) mL/min >=60 CREATININE (test code = CREAT) mg/dL 0.55-1.02 BUN/CREATININE RATIO (test code = BUN/CREA) 10-20 CALCIUM (test code = CA) mg/dL 8.5-10.1 HEPATIC FUNCTION [id number] 10:31:00* Test Item Value Reference Range Interpretation Comments TOTAL PROTEIN (test code = PROT) gram/dL 6.4-8.2 ALBUMIN (test code = ALB) g/dL 3.4-5.0 GLOBULIN (test code = GLOB) gram/dL 2.7-4.2 ALBUMIN/GLOBULIN RATIO (test code = A/G) 0.75-1.50 BILIRUBIN TOTAL (test code = BILT) mg/dL 0.0-1.0 BILIRUBIN DIRECT (test code = BILD) mg/dL 0.0-0.20 SGOT/AST (test code = AST) IUnit/L 15-37 SGPT/ALT (test code = ALT) IUnit/L 12-78 ALKALINE PHOSPHATASE TOTAL (test code = ALKP) IUnit/L 45-117 HCG SERUM [id number] 10:31:00* Test Item Value Reference Range Interpretation Comments HCG SERUM QUAL (test code = HCGQL) NEGATIVE NEGATIVE \\This HCGQL test is NOT applicable for MALE patients.Check with nurse about probable order error.If Tumor Marker Test needed, nurse should order test "HCGTU"(Test #550.34927) [id number] 10:31:00* Test Item Value Reference Range Interpretation Comments ACETAMINOPHEN (test code = ACET) mcg/mL 10-30 [id number] 10:31:00* Test Item Value Reference Range Interpretation Comments SALICYLATE (test code = CHRIS) mg/dL 2.8-20.0 [id number] 10:31:00* Test Item Value Reference Range Interpretation Comments ALCOHOL (test code = ALC) mg/dL 0-3 BASIC METABOLIC [id number] 10:29:00* Test Item Value Reference Range Interpretation Comments SODIUM (test code = NA) mmol/L 136-145 POTASSIUM (test code = K) mmol/L 3.5-5.1 CHLORIDE (test code = CL) mmol/L 98-107 CARBON DIOXIDE (test code = CO2) mmol/L 21-32 ANION GAP (test code = GAP) 10-20 GLUCOSE (test code = GLU) mg/dL 74-106 BLOOD UREA NITROGEN (test code = BUN) mg/dL 7-18 GLOMERULAR FILTRATION RATE (test code = GFR) mL/min >=60 CREATININE (test code = CREAT) mg/dL 0.55-1.02 BUN/CREATININE RATIO (test code = BUN/CREA) 10-20 CALCIUM (test code = CA) mg/dL 8.5-10.1 HEPATIC FUNCTION [id number] 10:29:00* Test Item Value Reference Range Interpretation Comments TOTAL PROTEIN (test code = PROT) gram/dL 6.4-8.2 ALBUMIN (test code = ALB) g/dL 3.4-5.0 GLOBULIN (test code = GLOB) gram/dL 2.7-4.2 ALBUMIN/GLOBULIN RATIO (test code = A/G) 0.75-1.50 BILIRUBIN TOTAL (test code = BILT) mg/dL 0.0-1.0 BILIRUBIN DIRECT (test code = BILD) mg/dL 0.0-0.20 SGOT/AST (test code = AST) IUnit/L 15-37 SGPT/ALT (test code = ALT) IUnit/L 12-78 ALKALINE PHOSPHATASE TOTAL (test code = ALKP) IUnit/L 45-117 HCG SERUM [id number] 10:29:00* Test Item Value Reference Range Interpretation Comments HCG SERUM QUAL (test code = HCGQL) NEGATIVE NEGATIVE \\This HCGQL test is NOT applicable for MALE patients.Check with nurse about probable order error.If Tumor Marker Test needed, nurse should order test "HCGTU"(Test #550.15507) [id number] 10:29:00* Test Item Value Reference Range Interpretation Comments ACETAMINOPHEN (test code = ACET) mcg/mL 10-30 [id number] 10:29:00* Test Item Value Reference Range Interpretation Comments SALICYLATE (test code = CHRIS) mg/dL 2.8-20.0 [id number] 10:29:00* Test Item Value Reference Range Interpretation Comments ALCOHOL (test code = ALC) mg/dL 0-3 URINALYSIS [id number] 06:30:00* Test Item Value Reference Range Interpretation Comments UA COLOR (test code = COLU) COLORLESS YELLOW A UA APPEARANCE (test code = APPU) CLEAR CLEAR UA GLUCOSE DIPSTICK (test code = DGLUU) NEGATIVE mg/dL NEGATIVE UA BILIRUBIN DIPSTICK (test code = BILU) NEGATIVE mg/dL NEGATIVE UA KETONE DIPSTICK (test code = KETU) NEGATIVE mg/dL NEGATIVE UA SPECIFIC GRAVITY (test code = SGU) 1.004 1.001-1.035 UA BLOOD DIPSTICK (test code = CINDY) Negative mg/dL NEGATIVE UA PH DIPSTICK (test code = ANAIS) 7.0 5.0-8.0 UA PROTEIN DIPSTICK (test code = PROU) NEGATIVE mg/dL NEGATIVE UA UROBILINIOGEN DIPSTICK (test code = URO) Normal mg/dL NEGATIVE UA NITRITE DIPSTICK (test code = ESTEVAN) NEGATIVE NEGATIVE UA LEUKOCYTE ESTERASE W REFLEX (test code = LEUUR) NEGATIVE Sunday/uL NEGATIVE UA WBC (test code = WBCU) 0-5 per HPF 0-5 UA RBC (test code = RBCU) 0-3 #/HPF 0-5 UA EPITHELIAL CELLS (test code = EPIU) FEW per HPF FEW UA BACTERIA (test code = BACU) NONE SEEN #/HPF NONE Urine Source? Clean CatchDRUGS OF ABUSE SCREEN [id number] 06:30:00* Test Item Value Reference Range Interpretation Comments URN COCAINE (test code = COCAURN) NEGATIVE <300 ng/mL URN CANNABINOIDS (test code = CANNABURN) NEGATIVE <50 ng/mL URN AMPHETAMINE (test code = AMPHETURN) NEGATIVE <1000 ng/mL URN BARBITURATE (test code = BARBITURN) NEGATIVE <200 ng/mL URN BENZODIAZEPINE (test code = BENZOURN) POSITIVE <200 ng/mL A This test provides only a preliminary test result. A morespecific alternate chemical method must be used in order toobtain a confirmed analytical result. Gas chromatography/mass spectrometry (GC/MS) is thepreferred confirmatory method. Other chemical confirmationmethods are available. Clinical consideration and professional judgment should be applied to any drug of abusetest result, particularly when preliminary positive resultsare used.Unconfirmed screening results must not be used fornon-medical purposes (e.g., employment testing, legaltesting). URN OPIATES (test code = OPIATURN) NEGATIVE <300 ng/mL URN PHENCYCLIDINE (PCP) (test code = PHENCURN) NEGATIVE <25 ng/ mL URN METHADONE (test code = METHAURN) NEGATIVE <300 ng/mL Urine Source? Clean CatchBASIC METABOLIC [id number] 06:09:00* Test Item Value Reference Range Interpretation Comments SODIUM (test code = NA) 144 mmol/L 136-145 N POTASSIUM (test code = K) 4.2 mmol/L 3.5-5.1 N CHLORIDE (test code = CL) 111.0 mmol/L 98-107 H CARBON DIOXIDE (test code = CO2) 27.0 mmol/L 21-32 N ANION GAP (test code = GAP) 10.2 10-20 N GLUCOSE (test code = GLU) 90 mg/dL 74-106 N BLOOD UREA NITROGEN (test code = BUN) 3 mg/dL 7-18 L GLOMERULAR FILTRATION RATE (test code = GFR) > 60 mL/min >=60 Estimated GFR by using Modified MDRD formula.Chronic kidney disease is defined as either kidney damageor GFR <60 mL/min/1.73 m2 for >3 months. CREATININE (test code = CREAT) 0.60 mg/dL 0.55-1.02 N Note change in reference range due to change in reagent. BUN/CREATININE RATIO (test code = BUN/CREA) 5.2 10-20 L CALCIUM (test code = CA) 8.6 mg/dL 8.5-10.1 N HEPATIC FUNCTION [id number] 06:09:00* Test Item Value Reference Range Interpretation Comments TOTAL PROTEIN (test code = PROT) 7.1 gram/dL 6.4-8.2 N ALBUMIN (test code = ALB) 3.6 g/dL 3.4-5.0 N GLOBULIN (test code = GLOB) 3.5 gram/dL 2.7-4.2 N ALBUMIN/GLOBULIN RATIO (test code = A/G) 1.0 0.75-1.50 N BILIRUBIN TOTAL (test code = BILT) 0.30 mg/dL 0.0-1.0 N BILIRUBIN DIRECT (test code = BILD) 0.08 mg/dL 0.0-0.20 N SGOT/AST (test code = AST) 26 IUnit/L 15-37 N SGPT/ALT (test code = ALT) 31 IUnit/L 12-78 N ALKALINE PHOSPHATASE TOTAL (test code = ALKP) 110 IUnit/L 45-117 N Note change in reference range due to change in reagent. HCG SERUM [id number] 06:09:00* Test Item Value Reference Range Interpretation Comments HCG SERUM QUAL (test code = HCGQL) NEGATIVE NEGATIVE This HCGQL test is NOT applicable for MALE patients.Check with nurse about probable order error.If Tumor Marker Test needed, nurse should order test "HCGTU"(Test #[id number]) [id number] 06:09:00* Test Item Value Reference Range Interpretation Comments ACETAMINOPHEN (test code = ACET) < 10 mcg/mL 10-30 L A RANGE OF 10-30 mcg/mL IS A THERAPEUTIC RANGE. TOXIC CONCENTRATIONS: >150 mcg/mL AT 4 HOURS AFTER INGESTION >= 50 mcg/mL AT 12 HOURS AFTER INGESTION [id number] 06:09:00* Test Item Value Reference Range Interpretation Comments SALICYLATE (test code = CHRIS) < 1.7 mg/dL 2.8-20.0 L [id number] 06:09:00* Test Item Value Reference Range Interpretation Comments ALCOHOL (test code = ALC) 353 mg/dL 0.0-3.0 H -- INTERPRETIVE DATA NOTE: POSITIVE SCREENING RESULTS SHOULD BE CONSIDERED PRESUMPTIVE.WHEN COLLECTED FOR MEDICAL PURPOSES ONLY. SPECIMEN WILL NOTBE COLLECTED BY CHAIN OF CUSTODY.IF A CONFIRMATION OF POSITIVE RESULTS IS DESIRED, ACONFIRMATION TEST MUST BE REQUESTED BY THE PHYSICIAN AT ANADDITIONAL CHARGE TO THE PATIENT. BASIC METABOLIC [id number] 06:02:00* Test Item Value Reference Range Interpretation Comments SODIUM (test code = NA) 144 mmol/L 136-145 N POTASSIUM (test code = K) 4.2 mmol/L 3.5-5.1 N CHLORIDE (test code = CL) 111.0 mmol/L 98-107 H CARBON DIOXIDE (test code = CO2) 27.0 mmol/L 21-32 N ANION GAP (test code = GAP) 10.2 10-20 N GLUCOSE (test code = GLU) 90 mg/dL 74-106 N BLOOD UREA NITROGEN (test code = BUN) 3 mg/dL 7-18 L GLOMERULAR FILTRATION RATE (test code = GFR) > 60 mL/min >=60 Estimated GFR by using Modified MDRD formula.Chronic kidney disease is defined as either kidney damageor GFR <60 mL/min/1.73 m2 for >3 months. CREATININE (test code = CREAT) 0.60 mg/dL 0.55-1.02 N Note change in reference range due to change in reagent. BUN/CREATININE RATIO (test code = BUN/CREA) 5.2 10-20 L CALCIUM (test code = CA) 8.6 mg/dL 8.5-10.1 N HEPATIC FUNCTION [id number] 06:02:00* Test Item Value Reference Range Interpretation Comments TOTAL PROTEIN (test code = PROT) 7.1 gram/dL 6.4-8.2 N ALBUMIN (test code = ALB) 3.6 g/dL 3.4-5.0 N GLOBULIN (test code = GLOB) 3.5 gram/dL 2.7-4.2 N ALBUMIN/GLOBULIN RATIO (test code = A/G) 1.0 0.75-1.50 N BILIRUBIN TOTAL (test code = BILT) 0.30 mg/dL 0.0-1.0 N BILIRUBIN DIRECT (test code = BILD) 0.08 mg/dL 0.0-0.20 N SGOT/AST (test code = AST) 26 IUnit/L 15-37 N SGPT/ALT (test code = ALT) 31 IUnit/L 12-78 N ALKALINE PHOSPHATASE TOTAL (test code = ALKP) 110 IUnit/L 45-117 N Note change in reference range due to change in reagent. HCG SERUM [id number] 06:02:00* Test Item Value Reference Range Interpretation Comments HCG SERUM QUAL (test code = HCGQL) NEGATIVE NEGATIVE This HCGQL test is NOT applicable for MALE patients.Check with nurse about probable order error.If Tumor Marker Test needed, nurse should order test "HCGTU"(Test #550.08191) [id number] 06:02:00* Test Item Value Reference Range Interpretation Comments ACETAMINOPHEN (test code = ACET) < 10 mcg/mL 10-30 L A RANGE OF 10-30 mcg/mL IS A THERAPEUTIC RANGE. TOXIC CONCENTRATIONS: >150 mcg/mL AT 4 HOURS AFTER INGESTION >= 50 mcg/mL AT 12 HOURS AFTER INGESTION [id number] 06:02:00* Test Item Value Reference Range Interpretation Comments SALICYLATE (test code = CRHIS) < 1.7 mg/dL 2.8-20.0 L [id number] 06:02:00* Test Item Value Reference Range Interpretation Comments ALCOHOL (test code = ALC) mg/dL 0-3 URINALYSIS [id number] 05:56:00* Test Item Value Reference Range Interpretation Comments UA COLOR (test code = COLU) COLORLESS YELLOW A UA APPEARANCE (test code = APPU) CLEAR CLEAR UA GLUCOSE DIPSTICK (test code = DGLUU) NEGATIVE mg/dL NEGATIVE UA BILIRUBIN DIPSTICK (test code = BILU) NEGATIVE mg/dL NEGATIVE UA KETONE DIPSTICK (test code = KETU) NEGATIVE mg/dL NEGATIVE UA SPECIFIC GRAVITY (test code = SGU) 1.004 1.001-1.035 UA BLOOD DIPSTICK (test code = CINDY) Negative mg/dL NEGATIVE UA PH DIPSTICK (test code = ANAIS) 7.0 5.0-8.0 UA PROTEIN DIPSTICK (test code = PROU) NEGATIVE mg/dL NEGATIVE UA UROBILINIOGEN DIPSTICK (test code = URO) Normal mg/dL NEGATIVE UA NITRITE DIPSTICK (test code = ESTEVAN) NEGATIVE NEGATIVE UA LEUKOCYTE ESTERASE W REFLEX (test code = LEUUR) NEGATIVE Sunday/uL NEGATIVE UA WBC (test code = WBCU) 0-5 per HPF 0-5 UA RBC (test code = RBCU) 0-3 #/HPF 0-5 UA EPITHELIAL CELLS (test code = EPIU) FEW per HPF FEW UA BACTERIA (test code = BACU) NONE SEEN #/HPF NONE Urine Source? Clean CatchDRUGS OF ABUSE SCREEN [id number] 05:56:00* Test Item Value Reference Range Interpretation Comments URN COCAINE (test code = COCAURN) <300 ng/mL URN CANNABINOIDS (test code = CANNABURN) <50 ng/mL URN AMPHETAMINE (test code = AMPHETURN) <1000 ng/mL URN BARBITURATE (test code = BARBITURN) <200 ng/mL URN BENZODIAZEPINE (test code = BENZOURN) <200 ng/mL URN OPIATES (test code = OPIATURN) <300 ng/mL URN PHENCYCLIDINE (PCP) (test code = PHENCURN) <25 ng/ mL URN METHADONE (test code = METHAURN) <300 ng/mL Urine Source? Clean CatchBASIC METABOLIC [id number] 05:54:00* Test Item Value Reference Range Interpretation Comments SODIUM (test code = NA) 144 mmol/L 136-145 N POTASSIUM (test code = K) 4.2 mmol/L 3.5-5.1 N CHLORIDE (test code = CL) 111.0 mmol/L 98-107 H CARBON DIOXIDE (test code = CO2) mmol/L 21-32 ANION GAP (test code = GAP) 10-20 GLUCOSE (test code = GLU) mg/dL 74-106 BLOOD UREA NITROGEN (test code = BUN) mg/dL 7-18 GLOMERULAR FILTRATION RATE (test code = GFR) mL/min >=60 CREATININE (test code = CREAT) mg/dL 0.55-1.02 BUN/CREATININE RATIO (test code = BUN/CREA) 10-20 CALCIUM (test code = CA) mg/dL 8.5-10.1 HEPATIC FUNCTION [id number] 05:54:00* Test Item Value Reference Range Interpretation Comments TOTAL PROTEIN (test code = PROT) gram/dL 6.4-8.2 ALBUMIN (test code = ALB) g/dL 3.4-5.0 GLOBULIN (test code = GLOB) gram/dL 2.7-4.2 ALBUMIN/GLOBULIN RATIO (test code = A/G) 0.75-1.50 BILIRUBIN TOTAL (test code = BILT) mg/dL 0.0-1.0 BILIRUBIN DIRECT (test code = BILD) mg/dL 0.0-0.20 SGOT/AST (test code = AST) IUnit/L 15-37 SGPT/ALT (test code = ALT) IUnit/L 12-78 ALKALINE PHOSPHATASE TOTAL (test code = ALKP) IUnit/L 45-117 HCG SERUM [id number] 05:54:00* Test Item Value Reference Range Interpretation Comments HCG SERUM QUAL (test code = HCGQL) NEGATIVE NEGATIVE This HCGQL test is NOT applicable for MALE patients.Check with nurse about probable order error.If Tumor Marker Test needed, nurse should order test "HCGTU"(Test #550.94633) [id number] 05:54:00* Test Item Value Reference Range Interpretation Comments ACETAMINOPHEN (test code = ACET) mcg/mL 10-30 [id number] 05:54:00* Test Item Value Reference Range Interpretation Comments SALICYLATE (test code = CHRIS) mg/dL 2.8-20.0 [id number] 05:54:00* Test Item Value Reference Range Interpretation Comments ALCOHOL (test code = ALC) mg/dL 0-3 CBC W/O [id number] 05:46:00* Test Item Value Reference Range Interpretation Comments WHITE BLOOD CELL (test code = WBC) 6.7 K/mm3 4.5-12.5 N RED BLOOD CELL (test code = RBC) 4.28 mill/mm3 3.7-5.2 N HEMOGLOBIN (test code = HGB) 13.8 gram/dL 11.5-15.5 N HEMATOCRIT (test code = HCT) 41.7 % 36.0-46.0 N MEAN CELL VOLUME (test code = MCV) 97.4 fL 80-98 N MEAN CELL HGB (test code = MCH) 32.2 picogram 27.0-33.0 N MEAN CELL HGB CONCETRATION (test code = MCHC) 33.1 gram/dL 33.0-36. 0 N RED CELL DISTRIBUTION WIDTH (test code = RDW) 14.0 % 11.6-16. 2 N PLATELET COUNT (test code = PLT) 301 K/mm3 150-450 N MEAN PLATELET VOLUME (test code = MPV) 8.9 fL 6.7-11.0 N BASIC METABOLIC [id number] 05:41:00* Test Item Value Reference Range Interpretation Comments SODIUM (test code = NA) 144 mmol/L 136-145 N POTASSIUM (test code = K) 4.2 mmol/L 3.5-5.1 N CHLORIDE (test code = CL) 111.0 mmol/L 98-107 H CARBON DIOXIDE (test code = CO2) mmol/L 21-32 ANION GAP (test code = GAP) 10-20 GLUCOSE (test code = GLU) mg/dL 74-106 BLOOD UREA NITROGEN (test code = BUN) mg/dL 7-18 GLOMERULAR FILTRATION RATE (test code = GFR) mL/min >=60 CREATININE (test code = CREAT) mg/dL 0.55-1.02 BUN/CREATININE RATIO (test code = BUN/CREA) 10-20 CALCIUM (test code = CA) mg/dL 8.5-10.1 HEPATIC FUNCTION [id number] 05:41:00* Test Item Value Reference Range Interpretation Comments TOTAL PROTEIN (test code = PROT) gram/dL 6.4-8.2 ALBUMIN (test code = ALB) g/dL 3.4-5.0 GLOBULIN (test code = GLOB) gram/dL 2.7-4.2 ALBUMIN/GLOBULIN RATIO (test code = A/G) 0.75-1.50 BILIRUBIN TOTAL (test code = BILT) mg/dL 0.0-1.0 BILIRUBIN DIRECT (test code = BILD) mg/dL 0.0-0.20 SGOT/AST (test code = AST) IUnit/L 15-37 SGPT/ALT (test code = ALT) IUnit/L 12-78 ALKALINE PHOSPHATASE TOTAL (test code = ALKP) IUnit/L 45-117 HCG SERUM [id number] 05:41:00* Test Item Value Reference Range Interpretation Comments HCG SERUM QUAL (test code = HCGQL) NEGATIVE [id number] 05:41:00* Test Item Value Reference Range Interpretation Comments ACETAMINOPHEN (test code = ACET) mcg/mL 10-30 [id number] 05:41:00* Test Item Value Reference Range Interpretation Comments SALICYLATE (test code = CHRIS) mg/dL 2.8-20.0 [id number] 05:41:00* Test Item Value Reference Range Interpretation Comments ALCOHOL (test code = ALC) mg/dL 0-3 [id number] 19:51:00* Test Item Value Reference Range Interpretation Comments GLUBED (test code = GLUBED) 80 mg/dL 74-106 N Performed by certified decator operator at [facility]3] [id number] 12:26:00* Test Item Value Reference Range Interpretation Comments GLUBED (test code = GLUBED) 75 mg/dL 74-106 N Performed by certified decator operator at [facility] ([facility]3] [id number] 06:47:00* Test Item Value Reference Range Interpretation Comments GLUBED (test code = GLUBED) 84 mg/dL 74-106 N Performed by certified decator operator at [facility]3] URINALYSIS [id number] 04:40:00* Test Item Value Reference Range Interpretation Comments UA COLOR (test code = COLU) COLORLESS YELLOW A UA APPEARANCE (test code = APPU) CLEAR CLEAR UA GLUCOSE DIPSTICK (test code = DGLUU) NEGATIVE mg/dL NEGATIVE UA BILIRUBIN DIPSTICK (test code = BILU) NEGATIVE mg/dL NEGATIVE UA KETONE DIPSTICK (test code = KETU) NEGATIVE mg/dL NEGATIVE UA SPECIFIC GRAVITY (test code = SGU) 1.007 1.001-1.035 UA BLOOD DIPSTICK (test code = CINDY) Negative mg/dL NEGATIVE UA PH DIPSTICK (test code = ANAIS) 5.5 5.0-8.0 UA PROTEIN DIPSTICK (test code = PROU) NEGATIVE mg/dL NEGATIVE UA UROBILINIOGEN DIPSTICK (test code = URO) Normal mg/dL NEGATIVE UA NITRITE DIPSTICK (test code = ESTEVAN) NEGATIVE NEGATIVE UA LEUKOCYTE ESTERASE W REFLEX (test code = LEUUR) NEGATIVE Sunday/uL NEGATIVE UA WBC (test code = WBCU) 0-5 per HPF 0-5 UA RBC (test code = RBCU) 0-2 #/HPF 0-5 UA EPITHELIAL CELLS (test code = EPIU) FEW per HPF FEW UA BACTERIA (test code = BACU) NONE SEEN #/HPF NONE UA MUCUS (test code = MUCU) FEW #/LPF FEW Urine Source? Clean CatchDRUGS OF ABUSE SCREEN [id number] 04:40:00* Test Item Value Reference Range Interpretation Comments URN COCAINE (test code = COCAURN) NEGATIVE <300 ng/mL URN CANNABINOIDS (test code = CANNABURN) NEGATIVE <50 ng/mL URN AMPHETAMINE (test code = AMPHETURN) NEGATIVE <1000 ng/mL URN BARBITURATE (test code = BARBITURN) NEGATIVE <200 ng/mL URN BENZODIAZEPINE (test code = BENZOURN) POSITIVE <200 ng/mL A This test provides only a preliminary test result. A morespecific alternate chemical method must be used in order toobtain a confirmed analytical result. Gas chromatography/mass spectrometry (GC/MS) is thepreferred confirmatory method. Other chemical confirmationmethods are available. Clinical consideration and professional judgment should be applied to any drug of abusetest result, particularly when preliminary positive resultsare used.Unconfirmed screening results must not be used fornon-medical purposes (e.g., employment testing, legaltesting). URN OPIATES (test code = OPIATURN) NEGATIVE <300 ng/mL URN PHENCYCLIDINE (PCP) (test code = PHENCURN) NEGATIVE <25 ng/ mL URN METHADONE (test code = METHAURN) NEGATIVE <300 ng/mL Urine Source? Clean CatchBASIC METABOLIC [id number] 04:40:00* Test Item Value Reference Range Interpretation Comments SODIUM (test code = NA) 141 mmol/L 136-145 N POTASSIUM (test code = K) 3.8 mmol/L 3.5-5.1 N CHLORIDE (test code = CL) 108.0 mmol/L 98-107 H CARBON DIOXIDE (test code = CO2) 21.0 mmol/L 21-32 N ANION GAP (test code = GAP) 15.8 10-20 N GLUCOSE (test code = GLU) 70 mg/dL 74-106 L BLOOD UREA NITROGEN (test code = BUN) 6 mg/dL 7-18 L GLOMERULAR FILTRATION RATE (test code = GFR) > 60 mL/min >=60 Estimated GFR by using Modified MDRD formula.Chronic kidney disease is defined as either kidney damageor GFR <60 mL/min/1.73 m2 for >3 months. CREATININE (test code = CREAT) 0.80 mg/dL 0.55-1.02 N Note change in reference range due to change in reagent. BUN/CREATININE RATIO (test code = BUN/CREA) 7.6 10-20 L CALCIUM (test code = CA) 7.9 mg/dL 8.5-10.1 L HEPATIC FUNCTION [id number] 04:40:00* Test Item Value Reference Range Interpretation Comments TOTAL PROTEIN (test code = PROT) 7.9 gram/dL 6.4-8.2 N ALBUMIN (test code = ALB) 3.9 g/dL 3.4-5.0 N GLOBULIN (test code = GLOB) 4.0 gram/dL 2.7-4.2 N ALBUMIN/GLOBULIN RATIO (test code = A/G) 1.0 0.75-1.50 N BILIRUBIN TOTAL (test code = BILT) 0.20 mg/dL 0.0-1.0 N BILIRUBIN DIRECT (test code = BILD) 0.08 mg/dL 0.0-0.20 N SGOT/AST (test code = AST) 32 IUnit/L 15-37 N SGPT/ALT (test code = ALT) 27 IUnit/L 12-78 N ALKALINE PHOSPHATASE TOTAL (test code = ALKP) 111 IUnit/L 45-117 N Note change in reference range due to change in reagent. HCG SERUM [id number] 04:40:00* Test Item Value Reference Range Interpretation Comments HCG SERUM BETA (test code = HCG) < 1.0 mIU/mL 0-3 N INTERPRETATION:B-HCG LEVELS <5 SHOULD BE CONSIDERED "NEGATIVE." *WHEN BODERLINE RESULTS ARE ENCOUNTERED,PATIENT SAMPLESSHOULD BE REDRAWN 48 HOURS. 0-1 WEEKS AFTER CONCEPTION 5-50 MIU/ML1-2 WEEKS AFTER CONCEPTION 50-500 MIU/ML2-3 WEEKS AFTER CONCEPTION 100 -5,000 MIU/ML3-4 WEEKS AFTER CONCEPTION 500-10,000 MIU/ML4-5 WEEKS AFTER CONCEPTION 1000 -50,000 MIU/ML5-6 WEEKS AFTER CONCEPTION 10,000-100,000 MIU/ML6-8 WEEKS AFTER CONCEPTION 15,000- 200,000 MIU/ML2-3 MONTHS AFTER CONCEPTION 10,000-100,000 MIU/ML [id number] 04:40:00* Test Item Value Reference Range Interpretation Comments TROPONIN-I (test code = TROPI) <0.015 ng/mL 0-0.045 N [id number] 04:40:00* Test Item Value Reference Range Interpretation Comments ACETAMINOPHEN (test code = ACET) < 10 mcg/mL 10-30 L A RANGE OF 10-30 mcg/mL IS A THERAPEUTIC RANGE. TOXIC CONCENTRATIONS: >150 mcg/mL AT 4 HOURS AFTER INGESTION >= 50 mcg/mL AT 12 HOURS AFTER INGESTION [id number] 04:40:00* Test Item Value Reference Range Interpretation Comments SALICYLATE (test code = CHRIS) 2.5 mg/dL 2.8-20.0 L [id number] 04:40:00* Test Item Value Reference Range Interpretation Comments ALCOHOL (test code = ALC) 488 mg/dL 0.0-3.0 H -- INTERPRETIVE DATA NOTE: POSITIVE SCREENING RESULTS SHOULD BE CONSIDERED PRESUMPTIVE.WHEN COLLECTED FOR MEDICAL PURPOSES ONLY. SPECIMEN WILL NOTBE COLLECTED BY CHAIN OF CUSTODY.IF A CONFIRMATION OF POSITIVE RESULTS IS DESIRED, ACONFIRMATION TEST MUST BE REQUESTED BY THE PHYSICIAN AT ANADDITIONAL CHARGE TO THE PATIENT. URINALYSIS [id number] 04:17:00* Test Item Value Reference Range Interpretation Comments UA COLOR (test code = COLU) COLORLESS YELLOW A UA APPEARANCE (test code = APPU) CLEAR CLEAR UA GLUCOSE DIPSTICK (test code = DGLUU) NEGATIVE mg/dL NEGATIVE UA BILIRUBIN DIPSTICK (test code = BILU) NEGATIVE mg/dL NEGATIVE UA KETONE DIPSTICK (test code = KETU) NEGATIVE mg/dL NEGATIVE UA SPECIFIC GRAVITY (test code = SGU) 1.007 1.001-1.035 UA BLOOD DIPSTICK (test code = CINDY) Negative mg/dL NEGATIVE UA PH DIPSTICK (test code = ANAIS) 5.5 5.0-8.0 UA PROTEIN DIPSTICK (test code = PROU) NEGATIVE mg/dL NEGATIVE UA UROBILINIOGEN DIPSTICK (test code = URO) Normal mg/dL NEGATIVE UA NITRITE DIPSTICK (test code = ESTEVAN) NEGATIVE NEGATIVE UA LEUKOCYTE ESTERASE W REFLEX (test code = LEUUR) NEGATIVE Sunday/uL NEGATIVE UA WBC (test code = WBCU) 0-5 per HPF 0-5 UA RBC (test code = RBCU) 0-2 #/HPF 0-5 UA EPITHELIAL CELLS (test code = EPIU) FEW per HPF FEW UA BACTERIA (test code = BACU) NONE SEEN #/HPF NONE UA MUCUS (test code = MUCU) FEW #/LPF FEW Urine Source? Clean CatchDRUGS OF ABUSE SCREEN [id number] 04:17:00* Test Item Value Reference Range Interpretation Comments URN COCAINE (test code = COCAURN) <300 ng/mL URN CANNABINOIDS (test code = CANNABURN) <50 ng/mL URN AMPHETAMINE (test code = AMPHETURN) <1000 ng/mL URN BARBITURATE (test code = BARBITURN) <200 ng/mL URN BENZODIAZEPINE (test code = BENZOURN) <200 ng/mL URN OPIATES (test code = OPIATURN) <300 ng/mL URN PHENCYCLIDINE (PCP) (test code = PHENCURN) <25 ng/ mL URN METHADONE (test code = METHAURN) <300 ng/mL Urine Source? Clean Catch- CT HEAD/BRAIN W/O [id number] 04:12:00 Name: MANDY ASCENCIO [facility] : 1985 Age/S: 33 / F [address] [facility] Unit #: [id number] Loc: [place] [address] Phys: Blaze Bae MD Acct: [id number] Di s Date: Status: REG ER PHONE #: Exam Date: 09/24/2019 0400 FAX #: Reason: CONFUSION EXAMS: CPT CODE: [id number] CT HEAD/BRAIN W/O CONT [id number] EXAM: CT Head without con trast Location: H24 HISTORY: Confusion, overdose COMPARISON: None available. TECHNIQUE: Multiple transa xial images of the brain were obtained without intravenous contrast. Imag es were reformatted to create coronal and sagittal reconstructions. One or more of the following dose reduction techniques were used: Automate d exposure control, adjustment of the mA and/or kV according to patient si ze, and/or utilization of iterative reconstruction technique. DLP: 833 m Gy-cm. FINDINGS: There is no acute intracranial h emorrhage. There is no mass, mass effect, midline shift or extra- axial fluid collection. Brain parenchymal volume and ventric ular caliber are within normal limits. Pitts-white differenti ation is maintained. There is no evidence for acute major vessel infarct. Paranasal sinuses, mastoid air cells and visualized orbital mishel nts are within normal limits. Osseous structures are withi n normal limits. IMPRESSION: No acute intracr anial abnormality. Electronically Signed by Devon Elizabeth M.D. on 2019 at 0412 Reported and signed by: Devon Elizabeth M.D. PAGE 1 Signed Report (CONTINUED) Name: MANDY ASCENCIO [facility] : 1985 Age/S: 33 / F [address] Unit #: [id number] Loc: [place], [place] [address] Phys: Cindy Bae MD Acct: [id number] Dis Date: Status: REG ER PHONE #: Exam Date: 09/24/2019 0400 FAX #: Reason: CONFUSION EXAMS: CPT CODE: [id number] CT HEAD/BRAIN W/O CONT 96643 <Continued> CC: Geoffrey Bae MD Technologist:KECIA DELGADO, RT; Dimas Blas CTDI: DLP: Trnscb Date/Time: 09/24/2019 (411) [email or web address] Orig Print D/T: S: 09/24/2019 (041) PAGE 2 Signed Report BASIC METABOLIC [id number] 04:06:00* Test Item Value Reference Range Interpretation Comments SODIUM (test code = NA) 141 mmol/L 136-145 N POTASSIUM (test code = K) 3.8 mmol/L 3.5-5.1 N CHLORIDE (test code = CL) 108.0 mmol/L 98-107 H CARBON DIOXIDE (test code = CO2) mmol/L 21-32 ANION GAP (test code = GAP) 10-20 GLUCOSE (test code = GLU) mg/dL 74-106 BLOOD UREA NITROGEN (test code = BUN) mg/dL 7-18 GLOMERULAR FILTRATION RATE (test code = GFR) mL/min >=60 CREATININE (test code = CREAT) mg/dL 0.55-1.02 BUN/CREATININE RATIO (test code = BUN/CREA) 10-20 CALCIUM (test code = CA) mg/dL 8.5-10.1 HEPATIC FUNCTION [id number] 04:06:00* Test Item Value Reference Range Interpretation Comments TOTAL PROTEIN (test code = PROT) gram/dL 6.4-8.2 ALBUMIN (test code = ALB) g/dL 3.4-5.0 GLOBULIN (test code = GLOB) gram/dL 2.7-4.2 ALBUMIN/GLOBULIN RATIO (test code = A/G) 0.75-1.50 BILIRUBIN TOTAL (test code = BILT) mg/dL 0.0-1.0 BILIRUBIN DIRECT (test code = BILD) mg/dL 0.0-0.20 SGOT/AST (test code = AST) IUnit/L 15-37 SGPT/ALT (test code = ALT) IUnit/L 12-78 ALKALINE PHOSPHATASE TOTAL (test code = ALKP) IUnit/L 45-117 HCG SERUM [id number] 04:06:00* Test Item Value Reference Range Interpretation Comments HCG SERUM BETA (test code = HCG) mIU/mL 0-3 [id number] 04:06:00* Test Item Value Reference Range Interpretation Comments TROPONIN-I (test code = TROPI) ng/mL 0-0.045 [id number] 04:06:00* Test Item Value Reference Range Interpretation Comments ACETAMINOPHEN (test code = ACET) mcg/mL 10-30 [id number] 04:06:00* Test Item Value Reference Range Interpretation Comments SALICYLATE (test code = CHRIS) mg/dL 2.8-20.0 [id number] 04:06:00* Test Item Value Reference Range Interpretation Comments ALCOHOL (test code = ALC) mg/dL 0-3 CBC W/O [id number] 03:54:00* Test Item Value Reference Range Interpretation Comments WHITE BLOOD CELL (test code = WBC) 8.6 K/mm3 4.5-12.5 N RED BLOOD CELL (test code = RBC) 4.22 mill/mm3 3.7-5.2 N HEMOGLOBIN (test code = HGB) 13.2 gram/dL 11.5-15.5 N HEMATOCRIT (test code = HCT) 40.7 % 36.0-46.0 N MEAN CELL VOLUME (test code = MCV) 96.4 fL 80-98 N MEAN CELL HGB (test code = MCH) 31.3 picogram 27.0-33.0 N MEAN CELL HGB CONCETRATION (test code = MCHC) 32.4 gram/dL 33.0-36. 0 L RED CELL DISTRIBUTION WIDTH (test code = RDW) 14.1 % 11.6-16. 2 N PLATELET COUNT (test code = PLT) 326 K/mm3 150-450 N MEAN PLATELET VOLUME (test code = MPV) 9.0 fL 6.7-11.0 N Lamotrigine (Lamictal), [id number] 18:08:00* Test Item Value Reference Range Interpretation Comments Lamotrigine, Serum (test code = 6948-4) 4.4 ug/mL 2-20 This test was developed and its performance characteristicsdetermined by [employer]. It has not been cleared or approvedby the Food and Drug Administration. Detection Limit = 1.0 DAGOBERTO (test code = DAGOBERTO) Performed at: - [address] [id number] Director: Abner Osullivan MD, Phone: [phone] [facility] GLUCOSE POC docked [id number] 17:17:00* Test Item Value Reference Range Interpretation Comments Glucose POC (test code = 76570150) 73 mg/dL 74-106 L Lab Interpretation (test code = 01122-7) [facility] [id number] 15:33:11IMPRESSION: No acute thoracic abnormality. If the report is "FINALIZED" it indicates that the attending/staffradiologist has reviewed the images and agrees with the resident'sinterpretation. Dictated By: Tyler Lyles MD, 09/06/2019 3:19 PM I have reviewed the study and agree with the findings in this report. Signed By: Camilla Johansen MD, 09/06/2019 3:33 PM Interface, Rad/Mammog In - 09/06/2019 3:38 PM CDTEXAMINATION: XRAY CHEST 1 VIEW, AP INDICATION: dyspnea COMPARISON: Chest radi ograph on 09/29/2018. FINDINGS: Single AP view with portable technique limits evaluation.TUBES/LINES: None.LUNGS: No consolidations or edema.PLEURA: No effus ions or pneumothorax.HEART/MEDIASTINUM: Normal for technique.MUSCULOSKELETAL: No acute findings.UPPER ABDOMEN: Normal.IMPRESSIONIMPRESSION: No acute thoracic ab normality.If the report is "FINALIZED" it indicates that the attending/staffradi ologist has reviewed the images and agrees with the resident'sinterpretation.Dic tated By: Tyler Lyels MD, 09/06/2019 3:19 PMI have reviewed the study and agree with the findings in this report.Signed By: Camilla Johansen MD, 09/06/2019 3:33 PM [facility], CoVID-19, [id number] 11:28:00* Test Item Value Reference Range Interpretation Comments COVID-19 (SARS-COV-2) (test code = 94421-7) Not Detected Not Detect ed INTERPRETATION: No detectable levels of SARS-CoV-2 Coronavirus (COVID-19) were present [...] of active infection with SARS-CoV-2 Coronavirus (COVID-19). DAGOBERTO (test code = DAGOBERTO) COMMENT: This [employer] Xpert Xpress SARS-CoV-2 real-time PCR test was developed, and its performance characteristics determined by the [facility] molecular diagnostic Laboratory and is acceptable for patient testing. It has been approved for patient testing by the FDA under the Emergency Use Authorization pathway. This laboratory is certified under federal CLIA regulations to perform this type of high complexity testing. Lab Interpretation (test code = 49309-8) Normal [facility] BMP POC docked [id number] 02:10:00* Test Item Value Reference Range Interpretation Comments Sodium POC (test code = 81242848) 144 mmol/L 136-145 Potassium POC (test code = 63185321) 3.5 mmol/L 3.5-5.1 Chloride POC (test code = 09678455) 106 mmol/L 98-107 TCO2 POC (test code = 44277517) 27 mmol/L 21-32 --- Urea Nitrogen POC (test code = 64288456) <3 7-18 L Glucose POC (test code = 32913153) 91 mg/dL 74-106 Hemoglobin POC (test code = 96404023) 14.3 g/dL 12-16 Hematocrit POC (test code = 09762278) 42.0 % 37-47 Lab Interpretation (test code = 13698-1) Abnormal [facility] HEAD W/O [id number] 01:51:13IMPRESSION: Head CT:No intracranial abnormalities. Maxillofacial CT:1. Age indeterminate, minimally displaced right maxillary frontalprocess fracture.2. Otherwise, no acute osseous abnormalities. Dictated By: Shraddha Dunn MD, 09/06/2019 1:34 AM I have reviewed the study and agree with the findings in this report. Signed By: Orlando Jane MD, 09/06/2019 1:51 AM Interface, Rad/Mammog In - 09/06/2019 1:56 AM CDTExams: Head and Maxillofacial CTs without contrastHistory: Facial trauma, fx suspected Nasal pain (accession [id number]),Seizure (accession [id number])Comparison studies: Maxillofacial CTs dated 01/01/2018 and 05/05/2017Head CT 09/24/2017Technique: Axial scans were obtained though the head and face.Coronal a nd sagittal reconstructions obtained from the axial data. Dose modulation, itera tive reconstruction, and/or weight basedadjustment of the mA/kV was utilized to reduce the radiation dose to as low asreasonably achievable.IV Contrast: NoneCom plications: NoneRadiation Dose: Total DLP: 1662 mGy*cmFINDINGS:Head CT: Scalp/Sk ull:No abnormalities.Brain sulci: Appropriate for patient's age.Ventricles: Norm al in size and configuration. No hydrocephalus.Extra-axial:No masses or fluid co llections.Parenchyma: No abnormal densities.No masses, acute hemorrhage, acute o r chronic cortical insults.Dural sinuses: No abnormal densities.Sellar/Suprasel lar region: Intact.Skull base and craniocervical junction: Intact.Facial CT:Soft tissues: No abnormalities.Bones:Minimally displaced right maxillary frontal pro cess fracture is ageindeterminate.Otherwise, no acute fracture or destructive os seous lesion is seen.Orbits:No abnormalities.Paranasal sinuses: Minimal bilatera l maxillary sinus and olfactory/sphenoethmoidal recessmucosal thickening.Inciden bassem findings: Multiple scattered dental caries and missing teeth. The right paro tidgland is atrophic. IMPRESSIONIMPRESSION:Head CT:No intracranial abnormalities .Maxillofacial CT:1. Age indeterminate, minimally displaced right maxillary fro ntalprocess fracture.2. Otherwise, no acute osseous abnormalities.Dictated By: Shraddha Dunn MD, 09/06/2019 1:34 AMI have reviewed the study and agree with the findings in this report.Signed By: Orlando Jane MD, 09/06/2019 1:51 [facility] MAXILLOFACIAL W/O [id number] 01:51:13IMPRESSION: Head CT:No intracranial abnormalities. Maxillofacial CT:1. Age indeterminate, minimally displaced right maxillary frontalprocess fracture.2. Otherwise, no acute osseous abnormalities. Dictated By: Shraddha Dunn MD, 09/06/2019 1:34 AM I have reviewed the study and agree with the findings in this report. Signed By: Orlando Jane MD, 09/06/2019 1:51 AM Interface, Rad/Mammog In - 09/06/2019 1:56 AM CDTExams: Head and Maxillofacial CTs without contrastHistory: Facial trauma, fx suspected Nasal pain (accession [id number]),Seizure (accession [id number])Comparison studies: Maxillofacial CTs dated 01/01/2018 and 05/05/2017Head CT 09/24/2017Technique: Axial scans were obtained though the head and face.Coronal a nd sagittal reconstructions obtained from the axial data. Dose modulation, itera tive reconstruction, and/or weight basedadjustment of the mA/kV was utilized to reduce the radiation dose to as low asreasonably achievable.IV Contrast: NoneCom plications: NoneRadiation Dose: Total DLP: 1662 mGy*cmFINDINGS:Head CT: Scalp/Sk ull:No abnormalities.Brain sulci: Appropriate for patient's age.Ventricles: Norm al in size and configuration. No hydrocephalus.Extra-axial:No masses or fluid co llections.Parenchyma: No abnormal densities.No masses, acute hemorrhage, acute o r chronic cortical insults.Dural sinuses: No abnormal densities.Sellar/Suprasel lar region: Intact.Skull base and craniocervical junction: Intact.Facial CT:Soft tissues: No abnormalities.Bones:Minimally displaced right maxillary frontal pro cess fracture is ageindeterminate.Otherwise, no acute fracture or destructive os seous lesion is seen.Orbits:No abnormalities.Paranasal sinuses: Minimal bilatera l maxillary sinus and olfactory/sphenoethmoidal recessmucosal thickening.Inciden bassem findings: Multiple scattered dental caries and missing teeth. The right paro tidgland is atrophic. IMPRESSIONIMPRESSION:Head CT:No intracranial abnormalities .Maxillofacial CT:1. Age indeterminate, minimally displaced right maxillary fro ntalprocess fracture.2. Otherwise, no acute osseous abnormalities.Dictated By: Shraddha Dunn MD, 09/06/2019 1:34 AMI have reviewed the study and agree with the findings in this report.Signed By: Orlando Jane MD, 09/06/2019 1:51 [facility] [id number] 01:07:00* Test Item Value Reference Range Interpretation Comments Opiate, Ur (test code = 16588-9) Negative Negative Calibrated Standard: Morphine Positive if urine level > or = 300 ng/dL Amphetamine (test code = 78201-6) Negative Negative Calibrated Standard: D- Methamphetamine Positive if urine level > or = 1000 ng/mL Barbiturate (test code = 04496-2) Negative Negative Calibrated Standard: Secobarbital Positive if urine level is > or = 200 ng/mL Benzodiazepine (test code = 06625-5) Negative Negative Calibrated Standard: Lormethazepam Positive if urine level is > or = 200 ng/mL Cocaine (test code = 64666-8) Negative Negative Calibrated Standard: Benzoylecgonine Positive if urine level > or = 300 ng/dL PCP (test code = 58782-2) Negative Negative C alibrated Standard: Phencyclidine Positive if urine level > or = 25 ng/dL Cannabinoid (test code = 59359-1) Negative Negative Calibrated Standard: 11 nor-delta(9)-THC carboxylic acid Positive if urine level > or = 50 ng/mL Lab Interpretation (test code = 04017-2) [facility]1462-69-51 01:03:00* Test Item Value Reference Range Interpretation Comments ALCOHOL, SERUM - RESULT (BKR) (test code = 04664674) 0.35 g/dL < 0.10 Lab Interpretation (test code = 45768-9) [facility] FacilityKxkfqdShstdlqpkpdig6227-98-57 01:01:00* Test Item Value Reference Range Interpretation Comments Acetaminophen (test code = 19281783) <10.00 10-30 L Please refer to acetaminophen nomogram. Lab Interpretation (test code = 54860-8) Abnormal [place] MhxcwiInehde5688-40-57 01:01:00* Test Item Value Reference Range Interpretation Comments Lipase (test code = 74638389) 40 U/L 11-82 Lab Interpretation (test code = 34350-0) [facility] FacilityFefbrqHdxuumiwgw3486-73-47 01:01:00* Test Item Value Reference Range Interpretation Comments Salicylate (test code = 53884828) <2.5 2.8-30 L Lab Interpretation (test code = 70404-3) [facility] Pnl(Excludes DBIL)2019-09-06 01:01:00* Test Item Value Reference Range Interpretation Comments Sodium (test code = 2951-2) 141 mmol/L 136-145 Potassium (test code = 2823-3) 5.5 mmol/L 3.5-5.1 H Chloride (test code = 2075-0) 106 mmol/L 98-107 CO2 (test code = 90654891) 25 mmol/L 21-31 Glucose (test code = 85655917) 88 mg/dL 70-110 Calcium (test code = 69837680) 8.3 mg/dL 8.6-10.3 L Urea Nitrogen (test code = 87183031) 5.0 mg/dL 7-25 L Creatinine (test code = 41565470) 0.5 mg/dL 0.6-1.2 L Alkaline Phosphatase (test code = 56908133) 112 U/L 34-104 H ALT (test code = 17400061) 19 U/L 7-52 AST (test code = 99384058) 43 U/L 13-39 H Total Protein (test code = 2885-2) 7.5 g/dL 6-8.3 GFR, Estimated (test code = 43804820) >90 >=90 mL/min/1.73 m2 Albumin (test code = 79290-7) 4.6 g/dL 3.7-5.3 Anion Gap (test code = 99310093) 10 mmol/L 5-16 Lab Interpretation (test code = 14382-8) Abnormal [place] [facility] Tkks6710-52-47 00:38:00* Test Item Value Reference Range Interpretation Comments (test code = 98975180) Negative Negative Lab Interpretation (test code = 15526-1) [facility] FacilityCBC/Qpsr8046-94-21 00:29:00* Test Item Value Reference Range Interpretation Comments WBC (test code = 6690-2) 5.7 K/uL 4.5-11 RBC (test code = 789-8) 4.60 4.20- 5.40 M/uL Hemoglobin (test code = 718-7) 14.4 g/dL 12-16 Hematocrit (test code = 4544-3) 43.9 % 37-47 MCV (test code = 787-2) 95.4 fL 82-92 H MCH (test code = 785-6) 31.3 pg 27-32 MCHC (test code = 786-4) 32.8 g/dL 32-36 RDW (test code = 44986-4) 50.2 fL 36.4-46.3 H Platelet (test code = 777-3) 287 K/uL 150-400 Mean Platelet Volume (test code = 90321-6) 9.2 fL 9.4-12.4 L Percent NRBC (test code = 02051649) 0.0 % Neutrophil (test code = 770-8) 42.5 % 34-70 Lymphs (test code = 736-9) 48.5 % 20-50 Monocytes (test code = 5905-5) 6.0 % 5-12 Eos (test code = 713-8) 1.4 % 0.7-5 Basos (test code = 706-2) 1.2 % 0.1-1.2 Immature Granulocytes (test code = 47698639) 0.4 % 0-0.5 Neutrophils (Absolute) (test code = 62656449) 2.43 K/uL 1.56-6.1 3 Lymphs (Absolute) (test code = 50469794) 2.77 K/uL 1.18-3.74 Monocytes(Absolute) (test code = 59573370) 0.34 K/uL 0.24-0.36 Eos (Absolute) (test code = 93870906) 0.08 K/uL 0.04-0.36 Baso (Absolute) (test code = 81482629) 0.07 K/uL 0.01-0.08 Immature Grans (Abs) (test code = 15371344) 0.02 K/uL 0-0.03 Absolute NRBC (test code = 30918106) 0.00 K/uL Lab Interpretation (test code = 69016-4) [facility]- XR PELVIS 1/2 [id number] 10:39:00 FAX: Mercy Zaidi [phone] [place]: St: REG Name: MANDY BARTHOLOMEW [facility] : [birth year] Age/S: 33/F [address] [place] [address] Unit #: [id number] Loc: [address] [address] Phys: Mercy Daigle Acct: [id number] Dis Date: Status: REG ER PHONE #: [phone] Exam Date: 08/04/2019 1027 FAX #: [phone] Reason: pain s/p slip in shower. Old rib fractures EXAMS: CPT CODE: [id number] XR PELVIS 1/2 VIEWS 15455 Pelvis single view 08/04/2019 HISTORY: Pelvic pain Comparison is made to CT performed 07/19/2019 FINDINGS: Sacroiliac joints and pubic symphysis are inta ct. Superior and inferior rami are intact. Femoral heads are well rounde d. No dislocation is present. IMPRESSION: No acut e injury to bony pelvis identified. SL: [id number] at 1039 Reported and signed by: Karthikeyan Camilo M.D. CC: Mercy PARRA Technologist: Erma Sheppard, RT(R); Kezia Cary RT(R) [facility] Date/Time/By: 08/04/2019 (1268) : By: Erika [email or web address] Orig Print D/T: S: 08/04/2019 (5959) PAG E 1 Signed Report - XR CHEST 1 [id number] 10:38:00 FAX: Mercy Zaidi [phone] [place]: St: REG Name: MANDY BARTHOLOMEW [facility] : [birth year] Age/S: 33/F [address] [place] [address] Unit #: [id number] Loc: [address] [address] Phys: Mercy Daigle Acct: [id number] Dis Date: Status: REG ER PHONE #: [phone] Exam Date: 08/04/2019 1027 FAX #: [phone] Reason: pain s/p slip in shower. Old rib fractures EXAMS: CPT CODE: [id number] XR CHEST 1 V 17261 PROCEDURE: CHEST SINGLE VIEW INDICATION: Fall. Left rib pain. COMPARISON: 07/30/2019 FINDINGS: The lungs are clear. The pleura, cardiomediastinal silhouette and bony thorax are normal. No vascular congestion is present. IMPRESSION: No acute cardiopulmonary process. SL: [id number] at 1038 Reported and signed by: Karthikeyan Camilo M.D. CC: [facility] PARRA Technologist: Erma Sheppard, RT(R); Mali Cary, RT(R) Trnnvrd Date/Time/By: (1038) : By: [email or web address] Orig Print D/T: S: 08/04/2019 (6834) PAGE 1 Signed Report - XR L-SPINE 2/3 EOYFL8203-06-32 10:36:00 FAX: Mercy Zaidi [phone] [place]: St: REG Name: MANDY BARTHOLOMEW [facility] : [birth year] Age/S: 33/F [address] [place] [address] Unit #: [id number] Loc: [address] [address] Phys: Mercy Daigle Acct: [id number] Dis Date: Status: REG ER PHONE #: [phone] Exam Date: 08/04/2019 1027 FAX #: [phone] Reason: pain s/p slip in shower. Old rib fractures EXAMS: CPT CODE: [id number] XR L-SPINE 2/3 VIEWS 14686 Lumbar spine 2 views 08/04/2019 HISTORY: Fall. Back pain. FINDINGS: There is normal al ignment and curvature of the lumbar spine. Vertebral body heights and int ervertebral disc spaces are maintained. Pedicles and spinous processes ar e within normal limits. IMPRESSION: No acute injury to l umbar spine identified. SL: [id number] Electronically Signed by Mónica Camilo on 0 08/04/2019 at 1036 Reported and signed by: Diego Camilo M.D. CC: Mercy PARRA Technologist: Erma Sheppard, RT(R); Mali gomez RT(R) Trnnvdamien Date/Time/By: 08/04/2019 (6076) : By: [email or web address] Orig Print D/T: S: 08/04/2019 (0698) PAGE 1 Signed Report - CT HEAD/BRAIN W/O [id number] 00:23:00 Name: MANDY ASCENCIO [facility] : 1985 Age/S: 33 / F [place] Aragon Unit #: [id number] Loc: [place] [address] Phys: Lisha Nelson DO Acct: [id number] Dis Date: Status: REG ER PHONE #: [phone] Exam Date: 07/31/201912 FAX #: [phone] Reason: intoxication EXAMS: CPT CODE: [id number] CT HEAD/BRAIN W/O CONT 12134 Examination: Noncontrast head CT Indication: Intoxication Comparison: July 19, 2019 Location: R16 Technique: Multiple CT images of the brain were obtained from the skull base to the vertex. No intravenous contrast was administered. One or more of the following dose reduction techniques were used: Automated exposure control, adjustment of the mA and/or kV according to patient size, and/or utilization of iterative reconstruction technique. Findings: There is prominence of the ventricles and sulci consistent with moderate supratentorial cerebral volume loss. The basilar cisterns are patent. There is no intracranial hemorrhage or mass effect. No intra-axial or extra-axial fluid collections are seen. There are mild periventricular and subcortical white matter hypodensities which are nonspecific, but likely the sequelae of chronic microvascular ischemia. This appearance makes evaluation for underlying acute infarct difficult The visualized paranasal sinuses and mastoid air cells are clear. Impression: 1. No acute intracranial hemorrhage or significant mass effect 2. Additional findings as above PAGE 1 Signed Report (CONTINUED) Name: MANDY ASCENCIO [facility] : 1985 Age/S: 33 / F [place] Aragon Unit #: [id number] Loc: [place] [address] Phys: Lisha Nelson DO Acct: [id number] Dis Date: Status: REG ER PHONE #: [phone] Exam Date: 07/31/201912 FAX #: [phone] Reason: intoxication EXAMS: CPT CODE: [id number] CT HEAD/BRAIN W/O CONT 54397 <Continued> at 0023 Reported and signed by: Kim Schumacher M.D. CC: Lisha Nelson DO Technologist:CY CLEMONS CTDI: DLP: Trnscb Date/Time: 07/31/2019 (002) [email or web address] Orig Print D/T: S: 07/31/2019 (0026) PAGE 2 Signed Report BASIC METABOLIC [id number] 00:01:00* Test Item Value Reference Range Interpretation Comments SODIUM (test code = NA) 146 mmol/L 136-145 H POTASSIUM (test code = K) 3.7 mmol/L 3.5-5.1 N CHLORIDE (test code = CL) 109.0 mmol/L 98-107 H CARBON DIOXIDE (test code = CO2) 28.0 mmol/L 21-32 N ANION GAP (test code = GAP) 12.7 10-20 N GLUCOSE (test code = GLU) 87 mg/dL 74-106 N BLOOD UREA NITROGEN (test code = BUN) 5 mg/dL 7-18 L GLOMERULAR FILTRATION RATE (test code = GFR) > 60 mL/min >=60 Estimated GFR by using Modified MDRD formula.Chronic kidney disease is defined as either kidney damageor GFR <60 mL/min/1.73 m2 for >3 months. CREATININE (test code = CREAT) 0.50 mg/dL 0.55-1.02 L Note change in reference range due to change in reagent. BUN/CREATININE RATIO (test code = BUN/CREA) 9.7 10-20 L CALCIUM (test code = CA) 8.5 mg/dL 8.5-10.1 N HEPATIC FUNCTION [id number] 00:01:00* Test Item Value Reference Range Interpretation Comments TOTAL PROTEIN (test code = PROT) 7.6 gram/dL 6.4-8.2 N ALBUMIN (test code = ALB) 3.8 g/dL 3.4-5.0 N GLOBULIN (test code = GLOB) 3.8 gram/dL 2.7-4.2 N ALBUMIN/GLOBULIN RATIO (test code = A/G) 1.0 0.75-1.50 N BILIRUBIN TOTAL (test code = BILT) 0.20 mg/dL 0.0-1.0 N BILIRUBIN DIRECT (test code = BILD) 0.11 mg/dL 0.0-0.20 N SGOT/AST (test code = AST) 26 IUnit/L 15-37 N SGPT/ALT (test code = ALT) 33 IUnit/L 12-78 N ALKALINE PHOSPHATASE TOTAL (test code = ALKP) 121 IUnit/L 45-117 H Note change in reference range due to change in reagent. HCG SERUM [id number] 00:01:00* Test Item Value Reference Range Interpretation Comments HCG SERUM QUAL (test code = HCGQL) NEGATIVE NEGATIVE This HCGQL test is NOT applicable for MALE patients.Check with nurse about probable order error.If Tumor Marker Test needed, nurse should order test "HCGTU"(Test #550.40420) [id number] 00:01:00* Test Item Value Reference Range Interpretation Comments ACETAMINOPHEN (test code = ACET) < 10 mcg/mL 10-30 L A RANGE OF 10-30 mcg/mL IS A THERAPEUTIC RANGE. TOXIC CONCENTRATIONS: >150 mcg/mL AT 4 HOURS AFTER INGESTION >= 50 mcg/mL AT 12 HOURS AFTER INGESTION [id number] 00:01:00* Test Item Value Reference Range Interpretation Comments SALICYLATE (test code = CHRIS) 2.8 mg/dL 2.8-20.0 N [id number] 00:01:00* Test Item Value Reference Range Interpretation Comments ALCOHOL (test code = ALC) 371 mg/dL 0.0-3.0 H -- INTERPRETIVE DATA NOTE: POSITIVE SCREENING RESULTS SHOULD BE CONSIDERED PRESUMPTIVE.WHEN COLLECTED FOR MEDICAL PURPOSES ONLY. SPECIMEN WILL NOTBE COLLECTED BY CHAIN OF CUSTODY.IF A CONFIRMATION OF POSITIVE RESULTS IS DESIRED, ACONFIRMATION TEST MUST BE REQUESTED BY THE PHYSICIAN AT ANADDITIONAL CHARGE TO THE PATIENT. URINALYSIS [id number] 23:39:00* Test Item Value Reference Range Interpretation Comments UA COLOR (test code = COLU) COLORLESS YELLOW A UA APPEARANCE (test code = APPU) CLEAR CLEAR UA GLUCOSE DIPSTICK (test code = DGLUU) NEGATIVE mg/dL NEGATIVE UA BILIRUBIN DIPSTICK (test code = BILU) NEGATIVE mg/dL NEGATIVE UA KETONE DIPSTICK (test code = KETU) NEGATIVE mg/dL NEGATIVE UA SPECIFIC GRAVITY (test code = SGU) 1.004 1.001-1.035 UA BLOOD DIPSTICK (test code = CINDY) Negative mg/dL NEGATIVE UA PH DIPSTICK (test code = ANAIS) 6.5 5.0-8.0 UA PROTEIN DIPSTICK (test code = PROU) NEGATIVE mg/dL NEGATIVE UA UROBILINIOGEN DIPSTICK (test code = URO) Normal mg/dL NEGATIVE UA NITRITE DIPSTICK (test code = ESTEVAN) NEGATIVE NEGATIVE UA LEUKOCYTE ESTERASE W REFLEX (test code = LEUUR) NEGATIVE Sunday/uL NEGATIVE UA WBC (test code = WBCU) 0-5 per HPF 0-5 UA RBC (test code = RBCU) 0-5 #/HPF 0-5 UA EPITHELIAL CELLS (test code = EPIU) None seen per HPF FEW UA BACTERIA (test code = BACU) NONE SEEN #/HPF NONE Urine Source? Clean CatchDRUGS OF ABUSE SCREEN [id number] 23:39:00* Test Item Value Reference Range Interpretation Comments URN COCAINE (test code = COCAURN) NEGATIVE <300 ng/mL URN CANNABINOIDS (test code = CANNABURN) NEGATIVE <50 ng/mL URN AMPHETAMINE (test code = AMPHETURN) NEGATIVE <1000 ng/mL URN BARBITURATE (test code = BARBITURN) NEGATIVE <200 ng/mL URN BENZODIAZEPINE (test code = BENZOURN) POSITIVE <200 ng/mL A This test provides only a preliminary test result. A morespecific alternate chemical method must be used in order toobtain a confirmed analytical result. Gas chromatography/mass spectrometry (GC/MS) is thepreferred confirmatory method. Other chemical confirmationmethods are available. Clinical consideration and professional judgment should be applied to any drug of abusetest result, particularly when preliminary positive resultsare used.Unconfirmed screening results must not be used fornon-medical purposes (e.g., employment testing, legaltesting). URN OPIATES (test code = OPIATURN) POSITIVE <300 ng/mL A This test provides only a preliminary test result. A morespecific alternate chemical method must be used in order toobtain a confirmed analytical result. Gas chromatography/mass spectrometry (GC/MS) is thepreferred confirmatory method. Other chemical confirmationmethods are available. Clinical consideration and professional judgment should be applied to any drug of abusetest result, particularly when preliminary positive resultsare used.Unconfirmed screening results must not be used fornon-medical purposes (e.g., employment testing, legaltesting). URN PHENCYCLIDINE (PCP) (test code = PHENCURN) NEGATIVE <25 ng/ mL URN METHADONE (test code = METHAURN) NEGATIVE <300 ng/mL Urine Source? Clean Catch- XR CHEST 1 [id number] 23:29:00 FAX: Lisha Nelson DO [place]: St: REG Name: MANDY BARTHOLOMEW [facility] : [birth year] Age/S: 33/F [address] [facility] Unit #: [id number] Loc: [place] [address] Phys: Lisha Nelson DO Acct: [id number] Dis Date: Status: REG ER PHONE #: [phone] Exam Date: 07/30/2019 2306 FAX #: [phone] Reason: COUGH EXAMS: CPT CODE: [id number] XR CHEST 1 V 54919 EXAM: - XR CHEST 1 V HISTORY: Cough. COMPARISON: July 22, 2019. FINDINGS: Single AP view of the chest is provided. Heart size and va scularity are within normal limits. The lungs are clear of focal consolid ation. No effusion, pneumothorax, or acute osseous abnormality. IMPRESSION: No radiographic evidence of acute cardiopulmo nary process. 20 at 2329 Reported and signed by: Ron Liao MD CC: Lisha Nelson DO Technologist: GAEL ORDAZ JR Trnscrd Pedro e/Time/By: 07/30/2019 (3200) : By: [email or web address] Orig Print D/T: S: 2019 (7527) PAGE 1 Signed Report BASIC METABOLIC [id number] 23:26:00* Test Item Value Reference Range Interpretation Comments SODIUM (test code = NA) 146 mmol/L 136-145 H POTASSIUM (test code = K) 3.7 mmol/L 3.5-5.1 N CHLORIDE (test code = CL) 109.0 mmol/L 98-107 H CARBON DIOXIDE (test code = CO2) 28.0 mmol/L 21-32 N ANION GAP (test code = GAP) 12.7 10-20 N GLUCOSE (test code = GLU) 87 mg/dL 74-106 N BLOOD UREA NITROGEN (test code = BUN) 5 mg/dL 7-18 L GLOMERULAR FILTRATION RATE (test code = GFR) > 60 mL/min >=60 Estimated GFR by using Modified MDRD formula.Chronic kidney disease is defined as either kidney damageor GFR <60 mL/min/1.73 m2 for >3 months. CREATININE (test code = CREAT) 0.50 mg/dL 0.55-1.02 L Note change in reference range due to change in reagent. BUN/CREATININE RATIO (test code = BUN/CREA) 9.7 10-20 L CALCIUM (test code = CA) 8.5 mg/dL 8.5-10.1 N HEPATIC FUNCTION [id number] 23:26:00* Test Item Value Reference Range Interpretation Comments TOTAL PROTEIN (test code = PROT) 7.6 gram/dL 6.4-8.2 N ALBUMIN (test code = ALB) 3.8 g/dL 3.4-5.0 N GLOBULIN (test code = GLOB) 3.8 gram/dL 2.7-4.2 N ALBUMIN/GLOBULIN RATIO (test code = A/G) 1.0 0.75-1.50 N BILIRUBIN TOTAL (test code = BILT) 0.20 mg/dL 0.0-1.0 N BILIRUBIN DIRECT (test code = BILD) 0.11 mg/dL 0.0-0.20 N SGOT/AST (test code = AST) 26 IUnit/L 15-37 N SGPT/ALT (test code = ALT) 33 IUnit/L 12-78 N ALKALINE PHOSPHATASE TOTAL (test code = ALKP) 121 IUnit/L 45-117 H Note change in reference range due to change in reagent. HCG SERUM [id number] 23:26:00* Test Item Value Reference Range Interpretation Comments HCG SERUM QUAL (test code = HCGQL) NEGATIVE NEGATIVE This HCGQL test is NOT applicable for MALE patients.Check with nurse about probable order error.If Tumor Marker Test needed, nurse should order test "HCGTU"(Test #550.29592) [id number] 23:26:00* Test Item Value Reference Range Interpretation Comments ACETAMINOPHEN (test code = ACET) < 10 mcg/mL 10-30 L A RANGE OF 10-30 mcg/mL IS A THERAPEUTIC RANGE. TOXIC CONCENTRATIONS: >150 mcg/mL AT 4 HOURS AFTER INGESTION >= 50 mcg/mL AT 12 HOURS AFTER INGESTION [id number] 23:26:00* Test Item Value Reference Range Interpretation Comments SALICYLATE (test code = CHRIS) 2.8 mg/dL 2.8-20.0 N [id number] 23:26:00* Test Item Value Reference Range Interpretation Comments ALCOHOL (test code = ALC) mg/dL 0-3 BASIC METABOLIC [id number] 23:24:00* Test Item Value Reference Range Interpretation Comments SODIUM (test code = NA) 146 mmol/L 136-145 H POTASSIUM (test code = K) 3.7 mmol/L 3.5-5.1 N CHLORIDE (test code = CL) 109.0 mmol/L 98-107 H CARBON DIOXIDE (test code = CO2) 28.0 mmol/L 21-32 N ANION GAP (test code = GAP) 12.7 10-20 N GLUCOSE (test code = GLU) 87 mg/dL 74-106 N BLOOD UREA NITROGEN (test code = BUN) 5 mg/dL 7-18 L GLOMERULAR FILTRATION RATE (test code = GFR) > 60 mL/min >=60 Estimated GFR by using Modified MDRD formula.Chronic kidney disease is defined as either kidney damageor GFR <60 mL/min/1.73 m2 for >3 months. CREATININE (test code = CREAT) 0.50 mg/dL 0.55-1.02 L Note change in reference range due to change in reagent. BUN/CREATININE RATIO (test code = BUN/CREA) 9.7 10-20 L CALCIUM (test code = CA) 8.5 mg/dL 8.5-10.1 N HEPATIC FUNCTION [id number] 23:24:00* Test Item Value Reference Range Interpretation Comments TOTAL PROTEIN (test code = PROT) 7.6 gram/dL 6.4-8.2 N ALBUMIN (test code = ALB) 3.8 g/dL 3.4-5.0 N GLOBULIN (test code = GLOB) 3.8 gram/dL 2.7-4.2 N ALBUMIN/GLOBULIN RATIO (test code = A/G) 1.0 0.75-1.50 N BILIRUBIN TOTAL (test code = BILT) 0.20 mg/dL 0.0-1.0 N BILIRUBIN DIRECT (test code = BILD) 0.11 mg/dL 0.0-0.20 N SGOT/AST (test code = AST) 26 IUnit/L 15-37 N SGPT/ALT (test code = ALT) 33 IUnit/L 12-78 N ALKALINE PHOSPHATASE TOTAL (test code = ALKP) 121 IUnit/L 45-117 H Note change in reference range due to change in reagent. HCG SERUM [id number] 23:24:00* Test Item Value Reference Range Interpretation Comments HCG SERUM QUAL (test code = HCGQL) NEGATIVE [id number] 23:24:00* Test Item Value Reference Range Interpretation Comments ACETAMINOPHEN (test code = ACET) < 10 mcg/mL 10-30 L A RANGE OF 10-30 mcg/mL IS A THERAPEUTIC RANGE. TOXIC CONCENTRATIONS: >150 mcg/mL AT 4 HOURS AFTER INGESTION >= 50 mcg/mL AT 12 HOURS AFTER INGESTION [id number] 23:24:00* Test Item Value Reference Range Interpretation Comments SALICYLATE (test code = CHRIS) 2.8 mg/dL 2.8-20.0 N [id number] 23:24:00* Test Item Value Reference Range Interpretation Comments ALCOHOL (test code = ALC) mg/dL 0-3 URINALYSIS [id number] 23:05:00* Test Item Value Reference Range Interpretation Comments UA COLOR (test code = COLU) COLORLESS YELLOW A UA APPEARANCE (test code = APPU) CLEAR CLEAR UA GLUCOSE DIPSTICK (test code = DGLUU) NEGATIVE mg/dL NEGATIVE UA BILIRUBIN DIPSTICK (test code = BILU) NEGATIVE mg/dL NEGATIVE UA KETONE DIPSTICK (test code = KETU) NEGATIVE mg/dL NEGATIVE UA SPECIFIC GRAVITY (test code = SGU) 1.004 1.001-1.035 UA BLOOD DIPSTICK (test code = CINDY) Negative mg/dL NEGATIVE UA PH DIPSTICK (test code = ANAIS) 6.5 5.0-8.0 UA PROTEIN DIPSTICK (test code = PROU) NEGATIVE mg/dL NEGATIVE UA UROBILINIOGEN DIPSTICK (test code = URO) Normal mg/dL NEGATIVE UA NITRITE DIPSTICK (test code = ESTEVAN) NEGATIVE NEGATIVE UA LEUKOCYTE ESTERASE W REFLEX (test code = LEUUR) NEGATIVE Sunday/uL NEGATIVE UA WBC (test code = WBCU) 0-5 per HPF 0-5 UA RBC (test code = RBCU) 0-5 #/HPF 0-5 UA EPITHELIAL CELLS (test code = EPIU) None seen per HPF FEW UA BACTERIA (test code = BACU) NONE SEEN #/HPF NONE Urine Source? Clean CatchDRUGS OF ABUSE SCREEN [id number] 23:05:00* Test Item Value Reference Range Interpretation Comments URN COCAINE (test code = COCAURN) <300 ng/mL URN CANNABINOIDS (test code = CANNABURN) <50 ng/mL URN AMPHETAMINE (test code = AMPHETURN) <1000 ng/mL URN BARBITURATE (test code = BARBITURN) <200 ng/mL URN BENZODIAZEPINE (test code = BENZOURN) <200 ng/mL URN OPIATES (test code = OPIATURN) <300 ng/mL URN PHENCYCLIDINE (PCP) (test code = PHENCURN) <25 ng/ mL URN METHADONE (test code = METHAURN) <300 ng/mL Urine Source? Clean CatchCBC W/O [id number] 23:00:00* Test Item Value Reference Range Interpretation Comments WHITE BLOOD CELL (test code = WBC) 6.6 K/mm3 4.5-12.5 N RED BLOOD CELL (test code = RBC) 4.19 mill/mm3 3.7-5.2 N HEMOGLOBIN (test code = HGB) 12.9 gram/dL 11.5-15.5 N HEMATOCRIT (test code = HCT) 38.4 % 36.0-46.0 N MEAN CELL VOLUME (test code = MCV) 91.6 fL 80-98 N MEAN CELL HGB (test code = MCH) 30.8 picogram 27.0-33.0 N MEAN CELL HGB CONCETRATION (test code = MCHC) 33.6 gram/dL 33.0-36. 0 N RED CELL DISTRIBUTION WIDTH (test code = RDW) 14.9 % 11.6-16. 2 N PLATELET COUNT (test code = PLT) 365 K/mm3 150-450 N MEAN PLATELET VOLUME (test code = MPV) 8.6 fL 6.7-11.0 N CBC W/O [id number] 22:55:00* Test Item Value Reference Range Interpretation Comments WHITE BLOOD CELL (test code = WBC) K/mm3 4.5-12.5 RED BLOOD CELL (test code = RBC) mill/mm3 3.7-5.2 HEMOGLOBIN (test code = HGB) 12.9 gram/dL 11.5-15.5 N HEMATOCRIT (test code = HCT) 38.4 % 36.0-46.0 N MEAN CELL VOLUME (test code = MCV) fL 80-98 MEAN CELL HGB (test code = MCH) picogram 27.0-33.0 MEAN CELL HGB CONCETRATION (test code = MCHC) gram/dL 33.0-36. 0 RED CELL DISTRIBUTION WIDTH (test code = RDW) % 11.6-16. 2 PLATELET COUNT (test code = PLT) K/mm3 150-450 MEAN PLATELET VOLUME (test code = MPV) fL 6.7-11.0 COMPREHENSIVE DRUG [id number] 12:20:00* Test Item Value Reference Range Interpretation Comments PHENYTOIN SCREEN (test code = PHENSQ) <1.0 ug/mL 10.0-20.0 A : Therapeutic 6.0 - 14.0 Detection Limit = 0.6 <0.6 Indicates None Detected ACETAMINOPHEN (test code = ACETSQ) NONE DETECTED AMITRIPTYLINE (test code = BOBBY) <20 ng/mL Not Estab. This test was developed and its performance characteristicsdetermined by [employer]. It has not been cleared orapproved by the Food and Drug Administration. DESIPRAMINE (test code = PEDRO) <20 ng/mL Not Estab. DIAZEPAM (test code = DIAZT) <0.1 ug/mL 0.1-0.9 A Therapeutic: Chlordiazepoxide < 1.0 Norchlordiazepoxide < 0.7 Demoxepam < 0.6 Nordiazepam < 1.5 Diazepam < 1.0 Toxic: (Total, Parent+Met) > 5.0 NORDIAZEPAM (test code = NORDIAZ) <0.1 ug/mL 0.1-1.4 A Performed by:[facility] ([facility]) [address], [place], [place] DOXEPIN (test code = DOXT) <20 ng/mL Not Estab. IMIPRAMINE (test code = IMIP) <20 ng/mL Not Estab. NORTRIPTYLINE (test code = NORT) <20 ng/mL 50-150 A NORDOXEPIN (test code = PRATIK) <20 ng/mL Not Estab. Performed At: [address] [id number] Sanjai MD Ph:[phone] by:[facility] ([facility]) [address], [place], [place] PENTOBARBITAL (NEMBUTAL) (test code = PENTO) <1 ug/mL 1-5 A Detection Limit = 1 SALICYLATE (test code = SALSQ) None Detected ug/mL 30-250 Detection Limit = 5This test was developed and its performance characteristicsdetermined by [employer]. It has not been cleared orapproved by the Food and Drug Administration. ISOPROPYL ALCOHOL BLOOD (test code = ALCI) Negative % 0.000-0.010 Detection Limit = 0.010 METHYL ALCOHOL BLOOD (test code = ALCM) Negative % 0.000-0.010 Detection Limit = 0.010 ACETONE BLOOD (test code = ACETB) % 0.000-0.010 Detection Limit = 0.010 BENZODIAZEPINES (test code = BENZSQ) 3.0 ug/mL 0.1-0.9 A BUTALBITAL (test code = BUTALB) <1 ug/mL 1-10 A This test was developed and its performance characteristicsdetermined by [employer] ([employer] It has not been cleared orapproved by the Food and Drug Administration. Detection Limit = 1 PHENOBARBITAL (test code = PHENOB) <1 ug/mL 15-40 A Detection Limit = 1 [id number] 11:38:00* Test Item Value Reference Range Interpretation Comments GLUBED (test code = GLUBED) 84 mg/dL 74-106 N Performed by certified decator operator at [facility] ([facility])[3] [id number] 04:26:00* Test Item Value Reference Range Interpretation Comments PHOSPHORUS (test code = PHOS) 4.0 mg/dL 2.5-4.9 N [id number] 04:26:00* Test Item Value Reference Range Interpretation Comments MAGNESIUM (test code = MAG) 2.4 mg/dL 1.8-2.4 N BASIC METABOLIC [id number] 03:43:00* Test Item Value Reference Range Interpretation Comments SODIUM (test code = NA) 139 mmol/L 136-145 N POTASSIUM (test code = K) 3.8 mmol/L 3.5-5.1 N CHLORIDE (test code = CL) 107.0 mmol/L 98-107 N CARBON DIOXIDE (test code = CO2) 27.0 mmol/L 21-32 N ANION GAP (test code = GAP) 8.8 10-20 L GLUCOSE (test code = GLU) 79 mg/dL 74-106 N BLOOD UREA NITROGEN (test code = BUN) 6 mg/dL 7-18 L GLOMERULAR FILTRATION RATE (test code = GFR) > 60 mL/min >=60 Estimated GFR by using Modified MDRD formula.Chronic kidney disease is defined as either kidney damageor GFR <60 mL/min/1.73 m2 for >3 months. CREATININE (test code = CREAT) 0.50 mg/dL 0.55-1.02 L Note change in reference range due to change in reagent. BUN/CREATININE RATIO (test code = BUN/CREA) 11.9 10-20 N CALCIUM (test code = CA) 8.9 mg/dL 8.5-10.1 N BASIC METABOLIC [id number] 03:37:00* Test Item Value Reference Range Interpretation Comments SODIUM (test code = NA) 139 mmol/L 136-145 N POTASSIUM (test code = K) 3.8 mmol/L 3.5-5.1 N CHLORIDE (test code = CL) 107.0 mmol/L 98-107 N CARBON DIOXIDE (test code = CO2) mmol/L 21-32 ANION GAP (test code = GAP) 10-20 GLUCOSE (test code = GLU) mg/dL 74-106 BLOOD UREA NITROGEN (test code = BUN) mg/dL 7-18 GLOMERULAR FILTRATION RATE (test code = GFR) mL/min >=60 CREATININE (test code = CREAT) mg/dL 0.55-1.02 BUN/CREATININE RATIO (test code = BUN/CREA) 10-20 CALCIUM (test code = CA) mg/dL 8.5-10.1 CBC W/O [id number] 03:24:00* Test Item Value Reference Range Interpretation Comments WHITE BLOOD CELL (test code = WBC) 5.9 K/mm3 4.5-12.5 N RED BLOOD CELL (test code = RBC) 4.36 mill/mm3 3.7-5.2 N HEMOGLOBIN (test code = HGB) 13.1 gram/dL 11.5-15.5 N HEMATOCRIT (test code = HCT) 39.6 % 36.0-46.0 N MEAN CELL VOLUME (test code = MCV) 90.8 fL 80-98 N MEAN CELL HGB (test code = MCH) 30.0 picogram 27.0-33.0 N MEAN CELL HGB CONCETRATION (test code = MCHC) 33.1 gram/dL 33.0-36. 0 N RED CELL DISTRIBUTION WIDTH (test code = RDW) 14.0 % 11.6-16. 2 N PLATELET COUNT (test code = PLT) 229 K/mm3 150-450 N MEAN PLATELET VOLUME (test code = MPV) 9.1 fL 6.7-11.0 N CBC W/O [id number] 03:22:00* Test Item Value Reference Range Interpretation Comments WHITE BLOOD CELL (test code = WBC) K/mm3 4.5-12.5 RED BLOOD CELL (test code = RBC) mill/mm3 3.7-5.2 HEMOGLOBIN (test code = HGB) 13.1 gram/dL 11.5-15.5 N HEMATOCRIT (test code = HCT) 39.6 % 36.0-46.0 N MEAN CELL VOLUME (test code = MCV) fL 80-98 MEAN CELL HGB (test code = MCH) picogram 27.0-33.0 MEAN CELL HGB CONCETRATION (test code = MCHC) gram/dL 33.0-36. 0 RED CELL DISTRIBUTION WIDTH (test code = RDW) % 11.6-16. 2 PLATELET COUNT (test code = PLT) K/mm3 150-450 MEAN PLATELET VOLUME (test code = MPV) fL 6.7-11.0 [id number] 17:35:00* Test Item Value Reference Range Interpretation Comments GLUBED (test code = GLUBED) 97 mg/dL 74-106 N Performed by certified decator operator at [facility] ([facility])[3] [id number] 11:21:00* Test Item Value Reference Range Interpretation Comments GLUBED (test code = GLUBED) 107 mg/dL 74-106 H Performed by certified decator operator at [facility] ([facility])[3] [id number] 09:34:00* Test Item Value Reference Range Interpretation Comments GLUBED (test code = GLUBED) 87 mg/dL 74-106 N Performed by certified decator operator at [facility] ([facility])[3] COMPREHENSIVE METABOLIC [id number] 05:15:00* Test Item Value Reference Range Interpretation Comments SODIUM (test code = NA) 143 mmol/L 136-145 N POTASSIUM (test code = K) 4.0 mmol/L 3.5-5.1 N CHLORIDE (test code = CL) 109.0 mmol/L 98-107 H CARBON DIOXIDE (test code = CO2) 26.0 mmol/L 21-32 N ANION GAP (test code = GAP) 10.0 10-20 N GLUCOSE (test code = GLU) 96 mg/dL 74-106 N BLOOD UREA NITROGEN (test code = BUN) 4 mg/dL 7-18 L GLOMERULAR FILTRATION RATE (test code = GFR) > 60 mL/min >=60 Estimated GFR by using Modified MDRD formula.Chronic kidney disease is defined as either kidney damageor GFR <60 mL/min/1.73 m2 for >3 months. CREATININE (test code = CREAT) 0.50 mg/dL 0.55-1.02 L Note change in reference range due to change in reagent. BUN/CREATININE RATIO (test code = BUN/CREA) 7.7 10-20 L TOTAL PROTEIN (test code = PROT) 5.7 gram/dL 6.4-8.2 L ALBUMIN (test code = ALB) 2.7 g/dL 3.4-5.0 L GLOBULIN (test code = GLOB) 3.0 gram/dL 2.7-4.2 N ALBUMIN/GLOBULIN RATIO (test code = A/G) 0.9 0.75-1.50 N CALCIUM (test code = CA) 8.4 mg/dL 8.5-10.1 L BILIRUBIN TOTAL (test code = BILT) 0.30 mg/dL 0.0-1.0 N SGOT/AST (test code = AST) 58 IUnit/L 15-37 H SGPT/ALT (test code = ALT) 70 IUnit/L 12-78 N ALKALINE PHOSPHATASE TOTAL (test code = ALKP) 81 IUnit/L 45-117 N Note change in reference range due to change in reagent. COMPREHENSIVE METABOLIC [id number] 05:02:00* Test Item Value Reference Range Interpretation Comments SODIUM (test code = NA) 143 mmol/L 136-145 N POTASSIUM (test code = K) 4.0 mmol/L 3.5-5.1 N CHLORIDE (test code = CL) 109.0 mmol/L 98-107 H CARBON DIOXIDE (test code = CO2) mmol/L 21-32 ANION GAP (test code = GAP) 10.0 10-20 N GLUCOSE (test code = GLU) mg/dL 74-106 BLOOD UREA NITROGEN (test code = BUN) mg/dL 7-18 GLOMERULAR FILTRATION RATE (test code = GFR) mL/min >=60 CREATININE (test code = CREAT) mg/dL 0.55-1.02 BUN/CREATININE RATIO (test code = BUN/CREA) 10-20 TOTAL PROTEIN (test code = PROT) gram/dL 6.4-8.2 ALBUMIN (test code = ALB) g/dL 3.4-5.0 GLOBULIN (test code = GLOB) gram/dL 2.7-4.2 ALBUMIN/GLOBULIN RATIO (test code = A/G) 0.75-1.50 CALCIUM (test code = CA) mg/dL 8.5-10.1 BILIRUBIN TOTAL (test code = BILT) mg/dL 0.0-1.0 SGOT/AST (test code = AST) IUnit/L 15-37 SGPT/ALT (test code = ALT) IUnit/L 12-78 ALKALINE PHOSPHATASE TOTAL (test code = ALKP) IUnit/L 45-117 COMPREHENSIVE DRUG [id number] 03:07:00* Test Item Value Reference Range Interpretation Comments PHENYTOIN SCREEN (test code = PHENSQ) <1.0 ug/mL 10.0-20.0 A : Therapeutic 6.0 - 14.0 Detection Limit = 0.6 <0.6 Indicates None Detected ACETAMINOPHEN (test code = ACETSQ) AMITRIPTYLINE (test code = BOBBY) <20 ng/mL Not Estab. This test was developed and its performance characteristicsdetermined by [employer]. It has not been cleared orapproved by the Food and Drug Administration. DESIPRAMINE (test code = PEDRO) <20 ng/mL Not Estab. DIAZEPAM (test code = DIAZT) <0.1 ug/mL 0.1-0.9 A Therapeutic: Chlordiazepoxide < 1.0 Norchlordiazepoxide < 0.7 Demoxepam < 0.6 Nordiazepam < 1.5 Diazepam < 1.0 Toxic: (Total, Parent+Met) > 5.0 NORDIAZEPAM (test code = NORDIAZ) <0.1 ug/mL 0.1-1.4 A Performed by:[facility] ([facility]) [address], [place], [place] DOXEPIN (test code = DOXT) <20 ng/mL Not Estab. IMIPRAMINE (test code = IMIP) <20 ng/mL Not Estab. NORTRIPTYLINE (test code = NORT) <20 ng/mL 50-150 A NORDOXEPIN (test code = PRAITK) <20 ng/mL Not Estab. Performed At: [address] [id number] Levine MD Ph:[phone] by:[facility] ([facility]) [id number], [place], [place] PENTOBARBITAL (NEMBUTAL) (test code = PENTO) <1 ug/mL 1-5 A Detection Limit = 1 SALICYLATE (test code = SALSQ) None Detected ug/mL 30-250 Detection Limit = 5This test was developed and its performance characteristicsdetermined by [employer]. It has not been cleared orapproved by the Food and Drug Administration. ISOPROPYL ALCOHOL BLOOD (test code = ALCI) Negative % 0.000-0.010 Detection Limit = 0.010 METHYL ALCOHOL BLOOD (test code = ALCM) Negative % 0.000-0.010 Detection Limit = 0.010 ACETONE BLOOD (test code = ACETB) % 0.000-0.010 Detection Limit = 0.010 BENZODIAZEPINES (test code = BENZSQ) 3.0 ug/mL 0.1-0.9 A BUTALBITAL (test code = BUTALB) <1 ug/mL 1-10 A This test was developed and its performance characteristicsdetermined by [employer]. It has not been cleared orapproved by the Food and Drug Administration. Detection Limit = 1 PHENOBARBITAL (test code = PHENOB) <1 ug/mL 15-40 A Detection Limit = 1 [id number] 02:21:00* Test Item Value Reference Range Interpretation Comments PHOSPHORUS (test code = PHOS) 4.4 mg/dL 2.5-4.9 N [id number] 02:21:00* Test Item Value Reference Range Interpretation Comments MAGNESIUM (test code = MAG) 1.7 mg/dL 1.8-2.4 L CBC W/O [id number] 02:04:00* Test Item Value Reference Range Interpretation Comments WHITE BLOOD CELL (test code = WBC) 5.0 K/mm3 4.5-12.5 N RED BLOOD CELL (test code = RBC) 4.02 mill/mm3 3.7-5.2 N HEMOGLOBIN (test code = HGB) 12.1 gram/dL 11.5-15.5 N HEMATOCRIT (test code = HCT) 36.4 % 36.0-46.0 N MEAN CELL VOLUME (test code = MCV) 90.5 fL 80-98 N MEAN CELL HGB (test code = MCH) 30.1 picogram 27.0-33.0 N MEAN CELL HGB CONCETRATION (test code = MCHC) 33.2 gram/dL 33.0-36. 0 N RED CELL DISTRIBUTION WIDTH (test code = RDW) 14.2 % 11.6-16. 2 N PLATELET COUNT (test code = PLT) 192 K/mm3 150-450 N MEAN PLATELET VOLUME (test code = MPV) 9.7 fL 6.7-11.0 N BASIC METABOLIC [id number] 02:00:00* Test Item Value Reference Range Interpretation Comments SODIUM (test code = NA) 142 mmol/L 136-145 N POTASSIUM (test code = K) 3.8 mmol/L 3.5-5.1 N CHLORIDE (test code = CL) 108.0 mmol/L 98-107 H CARBON DIOXIDE (test code = CO2) 28.0 mmol/L 21-32 N ANION GAP (test code = GAP) 9.8 10-20 L GLUCOSE (test code = GLU) 96 mg/dL 74-106 N BLOOD UREA NITROGEN (test code = BUN) 4 mg/dL 7-18 L GLOMERULAR FILTRATION RATE (test code = GFR) > 60 mL/min >=60 Estimated GFR by using Modified MDRD formula.Chronic kidney disease is defined as either kidney damageor GFR <60 mL/min/1.73 m2 for >3 months. CREATININE (test code = CREAT) 0.50 mg/dL 0.55-1.02 L Note change in reference range due to change in reagent. BUN/CREATININE RATIO (test code = BUN/CREA) 7.6 10-20 L CALCIUM (test code = CA) 8.5 mg/dL 8.5-10.1 N CBC W/O [id number] 01:56:00* Test Item Value Reference Range Interpretation Comments WHITE BLOOD CELL (test code = WBC) K/mm3 4.5-12.5 RED BLOOD CELL (test code = RBC) mill/mm3 3.7-5.2 HEMOGLOBIN (test code = HGB) 12.1 gram/dL 11.5-15.5 N HEMATOCRIT (test code = HCT) 36.4 % 36.0-46.0 N MEAN CELL VOLUME (test code = MCV) fL 80-98 MEAN CELL HGB (test code = MCH) picogram 27.0-33.0 MEAN CELL HGB CONCETRATION (test code = MCHC) gram/dL 33.0-36. 0 RED CELL DISTRIBUTION WIDTH (test code = RDW) % 11.6-16. 2 PLATELET COUNT (test code = PLT) K/mm3 150-450 MEAN PLATELET VOLUME (test code = MPV) fL 6.7-11.0 [id number] 20:09:00* Test Item Value Reference Range Interpretation Comments GLUBED (test code = GLUBED) 126 mg/dL 74-106 H Performed by certified decator operator at [facility])[3] [id number] 16:29:00* Test Item Value Reference Range Interpretation Comments GLUBED (test code = GLUBED) 142 mg/dL 74-106 H Performed by certified decator operator at [facility])[3] [id number] 12:21:00* Test Item Value Reference Range Interpretation Comments GLUBED (test code = GLUBED) 125 mg/dL 74-106 H Performed by certified decator operator at [facility])[3] PROCALCITONIN (PCT)2019-07-23 05:08:00* Test Item Value Reference Range Interpretation Comments PROCALCITONIN (PCT) (test code = PROCAL) < 0.05 ng/ml Concentration Interpretation (ng/mL) <0.51 Sepsis is not likely. Local bacterial infection is possible. (LOW RISK for progression to Sepsis) 0.51 - 2.00 Sepsis is possible, but other conditions are known to elevate PCT as well. (MODERATE RISK for progression to Sepsis) > 2.00 Sepsis is likely, unless other causes are known. (HIGH RISK for progression to Severe Sepsis or Septic Shock) 10.00 High likelihood of Severe Sepsis or Septic or higher Shock. *Increased PCT levels may not always be related to systemic bacterial infection.*Low PCT levels do not automatically exclude the presence of bacterial infection.*All results should be interpreted taking into account the patients history. BASIC METABOLIC [id number] 03:07:00* Test Item Value Reference Range Interpretation Comments SODIUM (test code = NA) 142 mmol/L 136-145 N POTASSIUM (test code = K) 3.3 mmol/L 3.5-5.1 L CHLORIDE (test code = CL) 109.0 mmol/L 98-107 H CARBON DIOXIDE (test code = CO2) 29.0 mmol/L 21-32 N ANION GAP (test code = GAP) 7.3 10-20 L GLUCOSE (test code = GLU) 117 mg/dL 74-106 H BLOOD UREA NITROGEN (test code = BUN) 5 mg/dL 7-18 L GLOMERULAR FILTRATION RATE (test code = GFR) > 60 mL/min >=60 Estimated GFR by using Modified MDRD formula.Chronic kidney disease is defined as either kidney damageor GFR <60 mL/min/1.73 m2 for >3 months. CREATININE (test code = CREAT) 0.50 mg/dL 0.55-1.02 L Note change in reference range due to change in reagent. BUN/CREATININE RATIO (test code = BUN/CREA) 10.0 10-20 N CALCIUM (test code = CA) 8.4 mg/dL 8.5-10.1 L [id number] 03:07:00* Test Item Value Reference Range Interpretation Comments PHOSPHORUS (test code = PHOS) 4.0 mg/dL 2.5-4.9 N [id number] 03:07:00* Test Item Value Reference Range Interpretation Comments MAGNESIUM (test code = MAG) 2.1 mg/dL 1.8-2.4 N CBC W/O [id number] 02:40:00* Test Item Value Reference Range Interpretation Comments WHITE BLOOD CELL (test code = WBC) 4.4 K/mm3 4.5-12.5 L RED BLOOD CELL (test code = RBC) 3.67 mill/mm3 3.7-5.2 L HEMOGLOBIN (test code = HGB) 11.1 gram/dL 11.5-15.5 L HEMATOCRIT (test code = HCT) 33.5 % 36.0-46.0 L MEAN CELL VOLUME (test code = MCV) 91.3 fL 80-98 N MEAN CELL HGB (test code = MCH) 30.2 picogram 27.0-33.0 N MEAN CELL HGB CONCETRATION (test code = MCHC) 33.1 gram/dL 33.0-36. 0 N RED CELL DISTRIBUTION WIDTH (test code = RDW) 14.1 % 11.6-16. 2 N PLATELET COUNT (test code = PLT) 179 K/mm3 150-450 N MEAN PLATELET VOLUME (test code = MPV) 9.9 fL 6.7-11.0 N - XR CHEST 1 [id number] 08:26:00 FAX: Jr Ford [phone] [place]: St: ADM FAX: Y Robert Ramires MD [phone] Name: MANDY ASCENCIO [facility] : 1985 Age/S: 33/F [address] Unit #: [id number] Loc: S[address] [place] [address] Phys: Jr Ford Acct: [id number] Dis Date: Status: ADM IN PHONE #: [phone] Exam Date: 07/22/2019 0345 FAX #: [phone] Reason: updated pulm view EXAMS: CPT CODE: [id number] XR CHEST 1 V [id number] REASON FOR EXAM: updated pulm view Exam Order Date: 07/22/2019 5:00 AM Ordering MWellington: FIDEL Raya PROCEDURE: - XR CHEST 1 V COMPARISON: Chest x-ray the previous morning FINDINGS: The lungs are clear. There is no pleural effusion or pneumothorax. Pulmonary vascularity is within normal limits. The patient has been extubated and the enteric suction tube removed. Cardiomediastinal silhouette is normal in size for technique. The mediastinal contours are within normal limits. Musculoskeletal structures are within normal limits. The visualized upper abdomen is within normal limits. IMPRESSION: No acute cardiopulmonary process. Interval extubation and removal of enteric noe ction tube. Location: [facility] at 0826 Reported and signed by: José Miguel Cheng MD CC: Jr [place]; Robert Ramires MD Technologist: Armin Patricio RT(R); ANUM GUARDADO RT(R) T rnscrd Date/Time/By: 07/22/2019 (0805) : By: [email or web address] Orig Print D/T: S: 07/22/2019 (2720) PAGE 1 Sign ed Report BASIC METABOLIC [id number] 02:41:00 * Test Item Value Reference Range Interpretation Comments SODIUM (test code = NA) 140 mmol/L 136-145 N POTASSIUM (test code = K) 4.6 mmol/L 3.5-5.1 N CHLORIDE (test code = CL) 107.0 mmol/L 98-107 N CARBON DIOXIDE (test code = CO2) 25.0 mmol/L 21-32 N ANION GAP (test code = GAP) 12.6 10-20 N GLUCOSE (test code = GLU) 82 mg/dL 74-106 N BLOOD UREA NITROGEN (test code = BUN) 3 mg/dL 7-18 L GLOMERULAR FILTRATION RATE (test code = GFR) > 60 mL/min >=60 Estimated GFR by using Modified MDRD formula.Chronic kidney disease is defined as either kidney damageor GFR <60 mL/min/1.73 m2 for >3 months. CREATININE (test code = CREAT) 0.40 mg/dL 0.55-1.02 L Note change in reference range due to change in reagent. BUN/CREATININE RATIO (test code = BUN/CREA) 7.5 10-20 L CALCIUM (test code = CA) 7.4 mg/dL 8.5-10.1 L [id number] 02:41:00* Test Item Value Reference Range Interpretation Comments PHOSPHORUS (test code = PHOS) 4.6 mg/dL 2.5-4.9 N [id number] 02:41:00* Test Item Value Reference Range Interpretation Comments MAGNESIUM (test code = MAG) 1.8 mg/dL 1.8-2.4 N CBC W/O [id number] 02:35:00* Test Item Value Reference Range Interpretation Comments WHITE BLOOD CELL (test code = WBC) 7.0 K/mm3 4.5-12.5 N RED BLOOD CELL (test code = RBC) 3.71 mill/mm3 3.7-5.2 N HEMOGLOBIN (test code = HGB) 11.4 gram/dL 11.5-15.5 L HEMATOCRIT (test code = HCT) 33.0 % 36.0-46.0 L MEAN CELL VOLUME (test code = MCV) 88.9 fL 80-98 N MEAN CELL HGB (test code = MCH) 30.7 picogram 27.0-33.0 N MEAN CELL HGB CONCETRATION (test code = MCHC) 34.5 gram/dL 33.0-36. 0 N RED CELL DISTRIBUTION WIDTH (test code = RDW) 13.9 % 11.6-16. 2 N PLATELET COUNT (test code = PLT) 181 K/mm3 150-450 N MEAN PLATELET VOLUME (test code = MPV) 10.8 fL 6.7-11.0 N BASIC METABOLIC [id number] 02:34:00* Test Item Value Reference Range Interpretation Comments SODIUM (test code = NA) 140 mmol/L 136-145 N POTASSIUM (test code = K) 4.6 mmol/L 3.5-5.1 N CHLORIDE (test code = CL) 107.0 mmol/L 98-107 N CARBON DIOXIDE (test code = CO2) mmol/L 21-32 ANION GAP (test code = GAP) 10-20 GLUCOSE (test code = GLU) mg/dL 74-106 BLOOD UREA NITROGEN (test code = BUN) mg/dL 7-18 GLOMERULAR FILTRATION RATE (test code = GFR) mL/min >=60 CREATININE (test code = CREAT) mg/dL 0.55-1.02 BUN/CREATININE RATIO (test code = BUN/CREA) 10-20 CALCIUM (test code = CA) 7.4 mg/dL 8.5-10.1 L [id number] 02:34:00* Test Item Value Reference Range Interpretation Comments PHOSPHORUS (test code = PHOS) mg/dL 2.5-4.9 [id number] 02:34:00* Test Item Value Reference Range Interpretation Comments MAGNESIUM (test code = MAG) mg/dL 1.8-2.4 [id number] 11:24:00* Test Item Value Reference Range Interpretation Comments GLUBED (test code = GLUBED) 92 mg/dL 74-106 N Performed by certified decator operator at [facility] ([facility])[3] [id number] 08:02:00* Test Item Value Reference Range Interpretation Comments GLUBED (test code = GLUBED) 88 mg/dL 74-106 N Performed by certified decator operator at [facility] (Formerly [facility])[3] - XR CHEST 1 [id number] 07:43:00 FAX: Jr Ford [phone] [place]: B St: ADM FAX: Y Robert Ramires MD [phone] Name: MANDY ASCENCIO [facility] : 1985 Age/S: 33/F [address] [facility] Unit #: [id number] Loc: [address] [address] Phys: Jr Ford Acct: [id number] Dis Date: Status: ADM IN PHONE #: [phone] Exam Date: 07/21/2019 0427 FAX #: [phone] Reason: updated pulm view EXAMS: CPT CODE: [id number] XR CHEST 1 V 45247 EXAM: Chest x-ray, one view; INFORMATION: Rib fracture; respiratory failure; IMPRESSION: No change; well-positioned endotracheal and nasogastric tubes; No evidence of acute cardiothoracic abnormalities. Location code: [facility] at 0743 Reported and signed by: Quentin Ervin M.D. CC: Jr Ford; Robert Ramires MD Technologist: Armin Patricio RT(R); ANUM GUARDADO RT(R) Trnscrd Date/Time/By: 07/21/2019 (0784) : By: rBiana Orig Print D/T: S: 07/21/2019 (0780) PAGE 1 Signed Report [id number] 02:50:00* Test Item Value Reference Range Interpretation Comments PHOSPHORUS (test code = PHOS) 3.0 mg/dL 2.5-4.9 N [id number] 02:50:00* Test Item Value Reference Range Interpretation Comments MAGNESIUM (test code = MAG) 2.4 mg/dL 1.8-2.4 N BASIC METABOLIC [id number] 02:12:00* Test Item Value Reference Range Interpretation Comments SODIUM (test code = NA) 141 mmol/L 136-145 N POTASSIUM (test code = K) 3.7 mmol/L 3.5-5.1 N CHLORIDE (test code = CL) 113.0 mmol/L 98-107 H CARBON DIOXIDE (test code = CO2) 21.0 mmol/L 21-32 N ANION GAP (test code = GAP) 10.7 10-20 N GLUCOSE (test code = GLU) 79 mg/dL 74-106 N BLOOD UREA NITROGEN (test code = BUN) 8 mg/dL 7-18 N GLOMERULAR FILTRATION RATE (test code = GFR) > 60 mL/min >=60 Estimated GFR by using Modified MDRD formula.Chronic kidney disease is defined as either kidney damageor GFR <60 mL/min/1.73 m2 for >3 months. CREATININE (test code = CREAT) 0.40 mg/dL 0.55-1.02 L Note change in reference range due to change in reagent. BUN/CREATININE RATIO (test code = BUN/CREA) 20.0 10-20 N CALCIUM (test code = CA) 7.8 mg/dL 8.5-10.1 L BASIC METABOLIC [id number] 02:08:00* Test Item Value Reference Range Interpretation Comments SODIUM (test code = NA) 141 mmol/L 136-145 N POTASSIUM (test code = K) 3.7 mmol/L 3.5-5.1 N CHLORIDE (test code = CL) 113.0 mmol/L 98-107 H CARBON DIOXIDE (test code = CO2) mmol/L 21-32 ANION GAP (test code = GAP) 10-20 GLUCOSE (test code = GLU) mg/dL 74-106 BLOOD UREA NITROGEN (test code = BUN) mg/dL 7-18 GLOMERULAR FILTRATION RATE (test code = GFR) mL/min >=60 CREATININE (test code = CREAT) mg/dL 0.55-1.02 BUN/CREATININE RATIO (test code = BUN/CREA) 10-20 CALCIUM (test code = CA) mg/dL 8.5-10.1 CBC W/O [id number] 02:05:00* Test Item Value Reference Range Interpretation Comments WHITE BLOOD CELL (test code = WBC) 6.8 K/mm3 4.5-12.5 N RED BLOOD CELL (test code = RBC) 4.02 mill/mm3 3.7-5.2 N HEMOGLOBIN (test code = HGB) 12.0 gram/dL 11.5-15.5 N HEMATOCRIT (test code = HCT) 35.8 % 36.0-46.0 L MEAN CELL VOLUME (test code = MCV) 89.1 fL 80-98 N MEAN CELL HGB (test code = MCH) 29.9 picogram 27.0-33.0 N MEAN CELL HGB CONCETRATION (test code = MCHC) 33.5 gram/dL 33.0-36. 0 N RED CELL DISTRIBUTION WIDTH (test code = RDW) 14.3 % 11.6-16. 2 N PLATELET COUNT (test code = PLT) 167 K/mm3 150-450 N MEAN PLATELET VOLUME (test code = MPV) 9.6 fL 6.7-11.0 N CBC W/O [id number] 01:54:00* Test Item Value Reference Range Interpretation Comments WHITE BLOOD CELL (test code = WBC) K/mm3 4.5-12.5 RED BLOOD CELL (test code = RBC) mill/mm3 3.7-5.2 HEMOGLOBIN (test code = HGB) 12.0 gram/dL 11.5-15.5 N HEMATOCRIT (test code = HCT) % 36.0-46.0 MEAN CELL VOLUME (test code = MCV) fL 80-98 MEAN CELL HGB (test code = MCH) picogram 27.0-33.0 MEAN CELL HGB CONCETRATION (test code = MCHC) gram/dL 33.0-36. 0 RED CELL DISTRIBUTION WIDTH (test code = RDW) % 11.6-16. 2 PLATELET COUNT (test code = PLT) K/mm3 150-450 MEAN PLATELET VOLUME (test code = MPV) fL 6.7-11.0 - XR ELBOW 2 VIEWS [id number] 16:39:00 FAX: Gregor Coello [place]: B St: ADM FAX: Robert Stock MD [phone] Name: MANDY ASCENCIO [facility] : 1985 Age/S: 33/F [address] [facility] Unit #: [id number] Loc: V[address] [place] [address] Phys: Gregor Tijerina Acct: [id number] Dis Date: Status: ADM IN PHONE #: [phone] Exam Date: 07/20/2019 1550 FAX #: [phone] Reason: possible fracture EXAMS: CPT CODE: [id number] XR ELBOW [address] [place] [id number] REASON FOR EXAM: possible fracture EXAM ORDER DATE: 07/20/2019 12:00 AM Ordering: FIDEL Hurtado Attending:Robert Ramires MD Location:[facility] PROCEDURE: - XR ELBOW 2 VIEWS BI FINDINGS: 5 views of the bilateral elbows were obtained. The osseous structures are unremarkable in size and shape. The joint spaces are maintained. No evidence of fracture. There is normal alignment of the bilateral elbow joints IMPRESSION: Unremarkable bilateral elbows at 4186 Reported and signed by: Toro eRed M.D. CC: Gregor Tijerina; Robert Ramires MD Technologist: NITIN GABRIEL, RT(R); NED MCDANIELS RT(R) [facility] Date/Time/By: 07/20/2019 (9690) : By: KathieL Orig Print D/T: S: 07/23/2019 (3133) PAGE 1 Signed Report - XR CHEST 1 [id number] 16:37:00 FAX: Robert Stock MD [phone] [place]: St: ADM Name: MANDY BARTHOLOMEW [facility] : [birth year] Age/S: 33/F [address] Unit #: [id number] Loc: V.[address] [place] [address] Phys: Robert Ramires MD Acct: [id number] Dis Date: Status: ADM IN PHONE #: [phone] Exam Date: 07/20/2019 1545 FAX #: [phone] Reason: left rib fractures EXAMS: CPT CODE: [id number] XR CHEST 1 V 41682 REASON FOR EXAM: left rib fractures EXAM ORDER DATE: 07/20/2019 12:00 AM Orderi ng: Robert Ramires MD Attending:Robert Ramires MD Location:[facility] PROCEDURE: - XR CHEST 1 V COMPARISON: 07/19/2019 FINDINGS: Portable AP frontal view of the chest obtained at 3:54 PM shows clear lungs without evidence of consolidation. There is no evidence of effusion. The heart size is within normal limits. Pulmonary vasculatures a re unremarkable. Stable appearance of the ET tube and OG tube. IMPRESSION: No active disease. at 9247 Reported and signed by: Shayla Reed M.D. CC: Robert Ramires MD Technologist: NITIN GABRIEL, RT(R); NED MCDANIELS RT(R) Trnnvrd Date/Time/By: 07/20/2019 (3377) : By: Ana Cristina Orig Print D/T : S: 07/23/2019 (9289) PAGE 1 Sig myrna Report - XR KNEE 1 OR 2 V [id number] 16:36:00 FAX: Gregor Coello [place]: B St: ADM FAX: Robert Stock MD [phone] Name: MANDY ASCENCIO [facility] : 1985 Age/S: 33/F [address] Unit #: [id number] Loc: [address] [place] [address] Phys: Gregor Tijerina Acct: [id number] Dis Date: Status: ADM IN PHONE #: [phone] Exam Date: 07/20/2019 1551 FAX #: [phone] Reason: possible fracture EXAMS: CPT CODE: [id number] XR KNEE 1 [place] [address] [place] [id number] REASON FOR EXAM: possible fracture EXAM ORDER DATE: 07/20/2019 12:00 AM Ordering: FIDEL Hurtado Attending:Robert Ramires MD Location:[facility] PROCEDURE: - XR KNEE 1 OR 2 V BI FINDINGS: 4 views of the bilateral knees were obtained. The osseous structures are unremarkable in size and shape. The joint spaces are maintained. No evidence of fracture. No evidence of joint effusion. The patellae are intact IMPRESSION: Unremarkable bilateral knees at 1636 Reported and signed by: Toro Reed M.D. CC: Gregor Tijerina; Robert Ramires MD Technologist: NITIN GABRIEL, RT(R); NED MCDANIELS RT(R) Trnscrd Date/Time/By: 07/20/2019 (4262) : By: Ana Cristina Orig Print D/T: S: 07/23/2019 (7062) PAGE 1 Signed Report Coronavirus 2019 nCoV [id number] 12:46:00* Test Item Value Reference Range Interpretation Comments Coronavirus 2019 nCoV Bedside (test code = COVNONPUIBED) Negative LAB.JQ 07/20/19 [id number] 10:34:00* Test Item Value Reference Range Interpretation Comments ALCOHOL (test code = ALC) 28 mg/dL 0.0-3.0 H -- INTERPRETIVE DATA NOTE: POSITIVE SCREENING RESULTS SHOULD BE CONSIDERED PRESUMPTIVE.WHEN COLLECTED FOR MEDICAL PURPOSES ONLY. SPECIMEN WILL NOTBE COLLECTED BY CHAIN OF CUSTODY.IF A CONFIRMATION OF POSITIVE RESULTS IS DESIRED, ACONFIRMATION TEST MUST BE REQUESTED BY THE PHYSICIAN AT ANADDITIONAL CHARGE TO THE PATIENT. LACTIC [id number] 08:00:00* Test Item Value Reference Range Interpretation Comments LACTIC ACID (test code = LACT) 1.7 mmol/L 0.4-1.9 N BASIC METABOLIC [id number] 07:50:00* Test Item Value Reference Range Interpretation Comments SODIUM (test code = NA) 143 mmol/L 136-145 N POTASSIUM (test code = K) 3.0 mmol/L 3.5-5.1 L CHLORIDE (test code = CL) 112.0 mmol/L 98-107 H CARBON DIOXIDE (test code = CO2) 20.0 mmol/L 21-32 L ANION GAP (test code = GAP) 14.0 10-20 N GLUCOSE (test code = GLU) 76 mg/dL 74-106 N BLOOD UREA NITROGEN (test code = BUN) 8 mg/dL 7-18 N GLOMERULAR FILTRATION RATE (test code = GFR) > 60 mL/min >=60 Estimated GFR by using Modified MDRD formula.Chronic kidney disease is defined as either kidney damageor GFR <60 mL/min/1.73 m2 for >3 months. CREATININE (test code = CREAT) 0.50 mg/dL 0.55-1.02 L Note change in reference range due to change in reagent. BUN/CREATININE RATIO (test code = BUN/CREA) 16.0 10-20 N CALCIUM (test code = CA) 7.8 mg/dL 8.5-10.1 L [id number] 07:50:00* Test Item Value Reference Range Interpretation Comments PHOSPHORUS (test code = PHOS) 2.5 mg/dL 2.5-4.9 N [id number] 07:50:00* Test Item Value Reference Range Interpretation Comments MAGNESIUM (test code = MAG) 1.7 mg/dL 1.8-2.4 L CALCIUM [id number] 07:50:00* Test Item Value Reference Range Interpretation Comments CALCIUM IONIZED (test code = JOAO) 1.13 mmol/L 1.12-1.32 N BASIC METABOLIC [id number] 07:46:00* Test Item Value Reference Range Interpretation Comments SODIUM (test code = NA) 143 mmol/L 136-145 N POTASSIUM (test code = K) 3.0 mmol/L 3.5-5.1 L CHLORIDE (test code = CL) 112.0 mmol/L 98-107 H CARBON DIOXIDE (test code = CO2) mmol/L 21-32 ANION GAP (test code = GAP) 10-20 GLUCOSE (test code = GLU) mg/dL 74-106 BLOOD UREA NITROGEN (test code = BUN) mg/dL 7-18 GLOMERULAR FILTRATION RATE (test code = GFR) mL/min >=60 CREATININE (test code = CREAT) mg/dL 0.55-1.02 BUN/CREATININE RATIO (test code = BUN/CREA) 10-20 CALCIUM (test code = CA) mg/dL 8.5-10.1 [id number] 07:46:00* Test Item Value Reference Range Interpretation Comments PHOSPHORUS (test code = PHOS) mg/dL 2.5-4.9 [id number] 07:46:00* Test Item Value Reference Range Interpretation Comments MAGNESIUM (test code = MAG) mg/dL 1.8-2.4 CALCIUM [id number] 07:46:00* Test Item Value Reference Range Interpretation Comments CALCIUM IONIZED (test code = JOAO) 1.13 mmol/L 1.12-1.32 N BASIC METABOLIC [id number] 07:45:00* Test Item Value Reference Range Interpretation Comments SODIUM (test code = NA) 143 mmol/L 136-145 N POTASSIUM (test code = K) 3.0 mmol/L 3.5-5.1 L CHLORIDE (test code = CL) 112.0 mmol/L 98-107 H CARBON DIOXIDE (test code = CO2) mmol/L 21-32 ANION GAP (test code = GAP) 10-20 GLUCOSE (test code = GLU) mg/dL 74-106 BLOOD UREA NITROGEN (test code = BUN) mg/dL 7-18 GLOMERULAR FILTRATION RATE (test code = GFR) mL/min >=60 CREATININE (test code = CREAT) mg/dL 0.55-1.02 BUN/CREATININE RATIO (test code = BUN/CREA) 10-20 CALCIUM (test code = CA) mg/dL 8.5-10.1 [id number] 07:45:00* Test Item Value Reference Range Interpretation Comments PHOSPHORUS (test code = PHOS) mg/dL 2.5-4.9 [id number] 07:45:00* Test Item Value Reference Range Interpretation Comments MAGNESIUM (test code = MAG) mg/dL 1.8-2.4 CALCIUM [id number] 07:45:00* Test Item Value Reference Range Interpretation Comments CALCIUM IONIZED (test code = JOAO) mmol/L 1.12-1.32 CBC W/O [id number] 07:33:00* Test Item Value Reference Range Interpretation Comments WHITE BLOOD CELL (test code = WBC) 10.3 K/mm3 4.5-12.5 N RED BLOOD CELL (test code = RBC) 4.10 mill/mm3 3.7-5.2 N HEMOGLOBIN (test code = HGB) 12.2 gram/dL 11.5-15.5 N HEMATOCRIT (test code = HCT) 36.4 % 36.0-46.0 N MEAN CELL VOLUME (test code = MCV) 88.8 fL 80-98 N MEAN CELL HGB (test code = MCH) 29.8 picogram 27.0-33.0 N MEAN CELL HGB CONCETRATION (test code = MCHC) 33.5 gram/dL 33.0-36. 0 N RED CELL DISTRIBUTION WIDTH (test code = RDW) 14.6 % 11.6-16. 2 N PLATELET COUNT (test code = PLT) 203 K/mm3 150-450 RESULT VERIFIED BY REPEAT ANALYSIS MEAN PLATELET VOLUME (test code = MPV) 9.1 fL 6.7-11.0 N URINALYSIS [id number] 00:49:00* Test Item Value Reference Range Interpretation Comments UA COLOR (test code = COLU) Light-Yellow YELLOW UA APPEARANCE (test code = APPU) CLEAR CLEAR UA GLUCOSE DIPSTICK (test code = DGLUU) NEGATIVE mg/dL NEGATIVE UA BILIRUBIN DIPSTICK (test code = BILU) NEGATIVE mg/dL NEGATIVE UA KETONE DIPSTICK (test code = KETU) NEGATIVE mg/dL NEGATIVE UA SPECIFIC GRAVITY (test code = SGU) 1.022 1.001-1.035 UA BLOOD DIPSTICK (test code = CINDY) 0.2 mg/dL (2+) mg/dL NEGATIVE A UA PH DIPSTICK (test code = ANAIS) 6.0 5.0-8.0 UA PROTEIN DIPSTICK (test code = PROU) 10 (Trace) mg/dL NEGATIVE A UA UROBILINIOGEN DIPSTICK (test code = URO) Normal mg/dL NEGATIVE UA NITRITE DIPSTICK (test code = ESTEVAN) NEGATIVE NEGATIVE UA LEUKOCYTE ESTERASE W REFLEX (test code = LEUUR) NEGATIVE Sunday/uL NEGATIVE UA WBC (test code = WBCU) 0-5 per HPF 0-5 UA RBC (test code = RBCU) 21-50 #/HPF 0-5 UA EPITHELIAL CELLS (test code = EPIU) None seen per HPF FEW UA BACTERIA (test code = BACU) NONE SEEN #/HPF NONE UA MUCUS (test code = MUCU) FEW #/LPF FEW Urine Source? Clean CatchDRUGS OF ABUSE SCREEN [id number] 00:49:00* Test Item Value Reference Range Interpretation Comments URN COCAINE (test code = COCAURN) NEGATIVE <300 ng/mL URN CANNABINOIDS (test code = CANNABURN) NEGATIVE <50 ng/mL URN AMPHETAMINE (test code = AMPHETURN) NEGATIVE <1000 ng/mL URN BARBITURATE (test code = BARBITURN) NEGATIVE <200 ng/mL URN BENZODIAZEPINE (test code = BENZOURN) POSITIVE <200 ng/mL A This test provides only a preliminary test result. A morespecific alternate chemical method must be used in order toobtain a confirmed analytical result. Gas chromatography/mass spectrometry (GC/MS) is thepreferred confirmatory method. Other chemical confirmationmethods are available. Clinical consideration and professional judgment should be applied to any drug of abusetest result, particularly when preliminary positive resultsare used.Unconfirmed screening results must not be used fornon-medical purposes (e.g., employment testing, legaltesting). URN OPIATES (test code = OPIATURN) NEGATIVE <300 ng/mL URN PHENCYCLIDINE (PCP) (test code = PHENCURN) NEGATIVE <25 ng/ mL URN METHADONE (test code = METHAURN) NEGATIVE <300 ng/mL Urine Source? Clean CatchURINALYSIS [id number] 00:23:00* Test Item Value Reference Range Interpretation Comments UA COLOR (test code = COLU) Light-Yellow YELLOW UA APPEARANCE (test code = APPU) CLEAR CLEAR UA GLUCOSE DIPSTICK (test code = DGLUU) NEGATIVE mg/dL NEGATIVE UA BILIRUBIN DIPSTICK (test code = BILU) NEGATIVE mg/dL NEGATIVE UA KETONE DIPSTICK (test code = KETU) NEGATIVE mg/dL NEGATIVE UA SPECIFIC GRAVITY (test code = SGU) 1.022 1.001-1.035 UA BLOOD DIPSTICK (test code = CINDY) 0.2 mg/dL (2+) mg/dL NEGATIVE A UA PH DIPSTICK (test code = ANAIS) 6.0 5.0-8.0 UA PROTEIN DIPSTICK (test code = PROU) 10 (Trace) mg/dL NEGATIVE A UA UROBILINIOGEN DIPSTICK (test code = URO) Normal mg/dL NEGATIVE UA NITRITE DIPSTICK (test code = ESTEVAN) NEGATIVE NEGATIVE UA LEUKOCYTE ESTERASE W REFLEX (test code = LEUUR) NEGATIVE Sunday/uL NEGATIVE UA WBC (test code = WBCU) 0-5 per HPF 0-5 UA RBC (test code = RBCU) 21-50 #/HPF 0-5 UA EPITHELIAL CELLS (test code = EPIU) None seen per HPF FEW UA BACTERIA (test code = BACU) NONE SEEN #/HPF NONE UA MUCUS (test code = MUCU) FEW #/LPF FEW Urine Source? Clean CatchDRUGS OF ABUSE SCREEN [id number] 00:23:00* Test Item Value Reference Range Interpretation Comments URN COCAINE (test code = COCAURN) <300 ng/mL URN CANNABINOIDS (test code = CANNABURN) <50 ng/mL URN AMPHETAMINE (test code = AMPHETURN) <1000 ng/mL URN BARBITURATE (test code = BARBITURN) <200 ng/mL URN BENZODIAZEPINE (test code = BENZOURN) <200 ng/mL URN OPIATES (test code = OPIATURN) <300 ng/mL URN PHENCYCLIDINE (PCP) (test code = PHENCURN) <25 ng/ mL URN METHADONE (test code = METHAURN) <300 ng/mL Urine Source? Clean CatchBASIC METABOLIC [id number] 00:19:00* Test Item Value Reference Range Interpretation Comments SODIUM (test code = NA) 141 mmol/L 136-145 N POTASSIUM (test code = K) 3.7 mmol/L 3.5-5.1 N CHLORIDE (test code = CL) 107.0 mmol/L 98-107 N CARBON DIOXIDE (test code = CO2) 22.0 mmol/L 21-32 N ANION GAP (test code = GAP) 15.7 10-20 N GLUCOSE (test code = GLU) 86 mg/dL 74-106 N BLOOD UREA NITROGEN (test code = BUN) 9 mg/dL 7-18 N GLOMERULAR FILTRATION RATE (test code = GFR) > 60 mL/min >=60 Estimated GFR by using Modified MDRD formula.Chronic kidney disease is defined as either kidney damageor GFR <60 mL/min/1.73 m2 for >3 months. CREATININE (test code = CREAT) 0.70 mg/dL 0.55-1.02 N Note change in reference range due to change in reagent. BUN/CREATININE RATIO (test code = BUN/CREA) 12.9 10-20 N CALCIUM (test code = CA) 8.7 mg/dL 8.5-10.1 N HEPATIC FUNCTION [id number] 00:19:00* Test Item Value Reference Range Interpretation Comments TOTAL PROTEIN (test code = PROT) 7.5 gram/dL 6.4-8.2 N ALBUMIN (test code = ALB) 4.0 g/dL 3.4-5.0 N GLOBULIN (test code = GLOB) 3.5 gram/dL 2.7-4.2 N ALBUMIN/GLOBULIN RATIO (test code = A/G) 1.1 0.75-1.50 N BILIRUBIN TOTAL (test code = BILT) 0.30 mg/dL 0.0-1.0 N BILIRUBIN DIRECT (test code = BILD) 0.13 mg/dL 0.0-0.20 N SGOT/AST (test code = AST) 123 IUnit/L 15-37 H SGPT/ALT (test code = ALT) 100 IUnit/L 12-78 H ALKALINE PHOSPHATASE TOTAL (test code = ALKP) 91 IUnit/L 45-117 N Note change in reference range due to change in reagent. HCG SERUM [id number] 00:19:00* Test Item Value Reference Range Interpretation Comments HCG SERUM BETA (test code = HCG) < 1.0 mIU/mL 0-3 N INTERPRETATION:B-HCG LEVELS <5 SHOULD BE CONSIDERED "NEGATIVE." *WHEN BODERLINE RESULTS ARE ENCOUNTERED,PATIENT SAMPLESSHOULD BE REDRAWN 48 HOURS. 0-1 WEEKS AFTER CONCEPTION 5-50 MIU/ML1-2 WEEKS AFTER CONCEPTION 50-500 MIU/ML2-3 WEEKS AFTER CONCEPTION 100 -5,000 MIU/ML3-4 WEEKS AFTER CONCEPTION 500-10,000 MIU/ML4-5 WEEKS AFTER CONCEPTION 1000 -50,000 MIU/ML5-6 WEEKS AFTER CONCEPTION 10,000-100,000 MIU/ML6-8 WEEKS AFTER CONCEPTION 15,000- 200,000 MIU/ML2-3 MONTHS AFTER CONCEPTION 10,000-100,000 MIU/ML [id number] 00:19:00* Test Item Value Reference Range Interpretation Comments TROPONIN-I (test code = TROPI) <0.015 ng/mL 0-0.045 N [id number] 00:19:00* Test Item Value Reference Range Interpretation Comments ACETAMINOPHEN (test code = ACET) < 10 mcg/mL 10-30 L A RANGE OF 10-30 mcg/mL IS A THERAPEUTIC RANGE. TOXIC CONCENTRATIONS: >150 mcg/mL AT 4 HOURS AFTER INGESTION >= 50 mcg/mL AT 12 HOURS AFTER INGESTION [id number] 00:19:00* Test Item Value Reference Range Interpretation Comments SALICYLATE (test code = CHRIS) 3.5 mg/dL 2.8-20.0 N [id number] 00:19:00* Test Item Value Reference Range Interpretation Comments ALCOHOL (test code = ALC) 321 mg/dL 0.0-3.0 H -- INTERPRETIVE DATA NOTE: POSITIVE SCREENING RESULTS SHOULD BE CONSIDERED PRESUMPTIVE.WHEN COLLECTED FOR MEDICAL PURPOSES ONLY. SPECIMEN WILL NOTBE COLLECTED BY CHAIN OF CUSTODY.IF A CONFIRMATION OF POSITIVE RESULTS IS DESIRED, ACONFIRMATION TEST MUST BE REQUESTED BY THE PHYSICIAN AT ANADDITIONAL CHARGE TO THE PATIENT. ARTERIAL BLOOD [id number] 00:07:00* Test Item Value Reference Range Interpretation Comments ARTERIAL BLOOD GAS PH (test code = PHA) 7.38 7.35-7.45 N ARTERIAL BLOOD GAS PCO2 (test code = PCO2A) 30.5 mm Hg 35-45 L ARTERIAL BLOOD GAS PO2 (test code = PO2A) 343.7 mmHg 80-100 H BICARBONATE TOTAL HCO3 (test code = HCO3) 17.8 mmol/L 23.0-27.0 L BASE EXCESS (test code = LISSA) -6.0 mmol/L -3.0-5.0 LL Results called to and read back by Joe Ontiveros 00:06 - 07/20/2019; by Franco PARNELL BEHAVIORAL THERAPY COORDINATOR ABG O2 SATURATION (test code = SATA) 99.4 % 90.0-98.0 H ABG TYPE (test code = TYPEA) Arterial FIO2 (test code = FIO2A) 60.0 ABG L/M (test code = L/M) 45.00 L/MIN ABG VENT MODE (test code = MODEA) Assist Control ABG VENT RESP RATE (test code = RRA) 16.0 per min ABG TIDAL VOLUME (test code = TVA) 450.0 mL ABG TEMPERATURE (test code = TEMPA) 37.0 Celsius ABG SITE (test code = SITEA) Lt RADIAL ARTERY MODIFIED ALLENS (test code = MODALL) Yes CHECK PERFORMED HEMATOCRIT (test code = HCT/ABG) 42 % 35-47 N TOTAL HGB (test code = THB) 14.3 gram/dL 11.5-15.5 N HGB O2 SAT (test code = HBOSAT) 97.7 % 94.00-98.00 N CARBOXYHEMOGLOBIN (test code = HOHGBT) 1.4 %totalHg 0.5-1.5 N METHEMOGLOBIN (test code = METHGB) 0.3 % 0.0-1.50 N O2 CONTENT (test code = O2CT) 20.5 % vol 18.0-22.0 N A-A GRADIENT (test code = AAGRADE) 50.6 mm Hg - XR CHEST 1 [id number] 23:53:00 FAX: Geoffrey Bae MD [phone] [place]: B St: REG Name: MANDY BARTHOLOMEW [facility] : [birth year] Age/S: 33/F [address] Unit #: [id number] Loc: [place] [address] Phys: Geoffrey Bae MD Acct: [id number] Dis Date: Status: REG ER PHONE #: [phone] Exam Date: 07/19/2019 6894 FAX #: [phone] Reason: CHEST PAIN EXAMS: CPT CODE: [id number] XR CHEST 1 V 42266 R16 EXAM: - XR CHEST 1 V HISTORY: CHEST PAIN COMPARISON: Chest CT 07/19/2019 FINDINGS: Endotracheal tube projects 4 cm from the sully. Nasogastric tube projects below the diaphragm. The lungs are clear. No pleural effusion or pneumothorax. The cardiac silhouette is within normal limits. No acute osseous abnormalities. IMPRESSION: Endotracheal tube and nasogastric tube in place. No acute cardiopulmo nary disease. Previously described left 8th through 10th rib fractures a re not well-seen on this exam. at 2353 Reported and signed by : Sarmad Pelletier MD CC: Geoffrey Bae MD Technologist: Bhavana Sneed Trnnvrd Date/Time/By: 07/19/2019 (6892) : By: [email or web address] Orig Print D/T: S: 07/19/2019 (7360) PAGE 1 Signed Report - CT ABD PELVIS [id number] 23:51:00 [facility] 1985 Age/S: 33 / F [address] Unit #: [id number] Loc: [place] [address] Phys: Geoffrey Bae MD Acct: [id number] Dis Date: Status: REG ER PHONE #: [phone] Exam Date: 07/19/20195 FAX #: [phone] Reason: abd pain - fall > 20 feet unresponsive EXAMS: CPT CODE: [id number] CT ABD PELVIS W/CONT [address] CHEST WITHOUT CONTRAST HISTORY: chest pain - fall > 20 feet unresponsive TECHNIQUE: Axial CT images were obtained through the chest without intravenous contrast and displayed in soft tissue and lung windows. Coronal and sagittal reformatted images were also created from the data set. One or more of the following dose reduction techniques were used: Automated exposure control, adjustment of the mA and/or kV according to patient size, and/or iterative reconstruction. COMPARISON: None FINDINGS: The lungs are clear. No pleural effusion or pneumothorax. There is no significant mediastinal or hilar adenopathy. The aorta and mediastinal structures show no other significant abnormalities. Diffuse fatty infiltration the liver. No focal liver masses. The gallbladder, spleen, pancreas, kidneys and adrenal glands have no significant abnormalities. The appendix is not well seen. No bowel distention or wall thickening. Marked distention of the bladder. No free air or free fluid in the abdomen. There is no retroperitoneal or mesenteric lymphadenopathy. Nondisplaced fractures in the left eighth, ninth and 10th ribs. Mildly displaced fracture in the left L4 transverse process. IMPRESSION: Mildly displaced fracture in the left L4 transverse process. PAGE 1 Signed Report (CONTINUED) Name: MANDY ASCENCIO [facility] : 1985 Age/S: 33 / F [address] [facility] Unit #: [id number] Loc: [place] [address] Phys: Geoffrey Bae MD Acct: [id number] Dis Date: Status: REG ER PHONE #: [phone] Exam Date: 07/19/20195 FAX #: [phone] Reason: abd pain - fall > 20 feet unresponsive EXAMS: CPT CODE: [id number] CT ABD PELVIS W/CONT 55291 < Continued> Nondisplaced fractures in the left eighth through 10th ribs. Otherwise, no acute chest, abdomen or pelvis abnormalities. at 2351 Reported and signed by: Sarmad Pelletier MD CC: Geoffrey Bae MD Technologist:CY CLEMONS CTDI: DLP: Trnscb Date/Time: 07/19/2019 (7832) [email or web address] Orig Print D/T: S: 07/19/2019 (1320) PAGE 2 Signed Report - CT CHEST W/[id number] 23:51:00 Name: MANDY ASCENCIO [facility] : 1985 Age/S: 33 / F [address] Unit #: [id number] Loc: [place] [address] Phys: Geoffrey Bae MD Acct: [id number] Dis Date: Status: REG ER PHONE #: [phone] Exam Date: 07/19/2019 2315 FAX #: [phone] Reason: chest pain - fall > 20 feet unresponsive EXAMS: CPT CODE: [id number] CT CHEST W/CONTRAST [address] CHEST WITHOUT CONTRAST HISTORY: chest pain - fall > 20 feet unresponsive TECHNIQUE: Axial CT images were obtained through the chest without intravenous contrast and displayed in soft tissue and lung windows. Coronal and sagittal reformatted images were also created from the data set. One or more of the following dose reduction techniques were used: Automated exposure control, adjustment of the mA and/or kV according to patient size, and/or iterative reconstruction. COMPARISON: None FINDINGS: The lungs are clear. No pleural effusion or pneumothorax. There is no significant mediastinal or hilar adenopathy. The aorta and mediastinal structures show no other significant abnormalities. Diffuse fatty infiltration the liver. No focal liver masses. The gallbladder, spleen, pancreas, kidneys and adrenal glands have no significant abnormalities. The appendix is not well seen. No bowel distention or wall thickening. Marked distention of the bladder. No free air or free fluid in the abdomen. There is no retroperitoneal or mesenteric lymphadenopathy. Nondisplaced fractures in the left eighth, ninth and 10th ribs. Mildly displaced fracture in the left L4 transverse process. IMPRESSION: Mildly displaced fracture in the left L4 transverse process. PAGE 1 Signed Report (CONTINUED) Name: MANDY ASCENCIO [facility] : 1985 Age/S: 33 / F [address] Unit #: [id number] Loc: [place] [address] Phys: Geoffrey Bae MD Acct: [id number] Dis Date: Status: REG ER PHONE #: [phone] Exam Date: 07/19/2019 2315 FAX #: [phone] Reason: chest pain - fall > 20 feet unresponsive EXAMS: CPT CODE: [id number] CT CHEST W/CONTRAST 58944 < Continued> Nondisplaced fractures in the left eighth through 10th ribs. Otherwise, no acute chest, abdomen or pelvis abnormalities. at 2351 Reported and signed by: Sarmad Pelletier MD CC: Geoffrey Bae MD Technologist:CY CLEMONS CTDI: DLP: Trnscb Date/Time: 07/19/2019 (809) [email or web address] Orig Print D/T: S: 07/19/2019 (8577) PAGE 2 Signed Report BASIC METABOLIC [id number] 23:31:00* Test Item Value Reference Range Interpretation Comments SODIUM (test code = NA) 141 mmol/L 136-145 N POTASSIUM (test code = K) 3.7 mmol/L 3.5-5.1 N CHLORIDE (test code = CL) 107.0 mmol/L 98-107 N CARBON DIOXIDE (test code = CO2) 22.0 mmol/L 21-32 N ANION GAP (test code = GAP) 15.7 10-20 N GLUCOSE (test code = GLU) 86 mg/dL 74-106 N BLOOD UREA NITROGEN (test code = BUN) 9 mg/dL 7-18 N GLOMERULAR FILTRATION RATE (test code = GFR) > 60 mL/min >=60 Estimated GFR by using Modified MDRD formula.Chronic kidney disease is defined as either kidney damageor GFR <60 mL/min/1.73 m2 for >3 months. CREATININE (test code = CREAT) 0.70 mg/dL 0.55-1.02 N Note change in reference range due to change in reagent. BUN/CREATININE RATIO (test code = BUN/CREA) 12.9 10-20 N CALCIUM (test code = CA) 8.7 mg/dL 8.5-10.1 N HEPATIC FUNCTION [id number] 23:31:00* Test Item Value Reference Range Interpretation Comments TOTAL PROTEIN (test code = PROT) 7.5 gram/dL 6.4-8.2 N ALBUMIN (test code = ALB) 4.0 g/dL 3.4-5.0 N GLOBULIN (test code = GLOB) 3.5 gram/dL 2.7-4.2 N ALBUMIN/GLOBULIN RATIO (test code = A/G) 1.1 0.75-1.50 N BILIRUBIN TOTAL (test code = BILT) 0.30 mg/dL 0.0-1.0 N BILIRUBIN DIRECT (test code = BILD) 0.13 mg/dL 0.0-0.20 N SGOT/AST (test code = AST) 123 IUnit/L 15-37 H SGPT/ALT (test code = ALT) 100 IUnit/L 12-78 H ALKALINE PHOSPHATASE TOTAL (test code = ALKP) 91 IUnit/L 45-117 N Note change in reference range due to change in reagent. HCG SERUM [id number] 23:31:00* Test Item Value Reference Range Interpretation Comments HCG SERUM BETA (test code = HCG) < 1.0 mIU/mL 0-3 N INTERPRETATION:B-HCG LEVELS <5 SHOULD BE CONSIDERED "NEGATIVE." *WHEN BODERLINE RESULTS ARE ENCOUNTERED,PATIENT SAMPLESSHOULD BE REDRAWN 48 HOURS. 0-1 WEEKS AFTER CONCEPTION 5-50 MIU/ML1-2 WEEKS AFTER CONCEPTION 50-500 MIU/ML2-3 WEEKS AFTER CONCEPTION 100 -5,000 MIU/ML3-4 WEEKS AFTER CONCEPTION 500-10,000 MIU/ML4-5 WEEKS AFTER CONCEPTION 1000 -50,000 MIU/ML5-6 WEEKS AFTER CONCEPTION 10,000-100,000 MIU/ML6-8 WEEKS AFTER CONCEPTION 15,000- 200,000 MIU/ML2-3 MONTHS AFTER CONCEPTION 10,000-100,000 MIU/ML [id number] 23:31:00* Test Item Value Reference Range Interpretation Comments TROPONIN-I (test code = TROPI) <0.015 ng/mL 0-0.045 N [id number] 23:31:00* Test Item Value Reference Range Interpretation Comments ACETAMINOPHEN (test code = ACET) < 10 mcg/mL 10-30 L A RANGE OF 10-30 mcg/mL IS A THERAPEUTIC RANGE. TOXIC CONCENTRATIONS: >150 mcg/mL AT 4 HOURS AFTER INGESTION >= 50 mcg/mL AT 12 HOURS AFTER INGESTION [id number] 23:31:00* Test Item Value Reference Range Interpretation Comments SALICYLATE (test code = CHRIS) 3.5 mg/dL 2.8-20.0 N [id number] 23:31:00* Test Item Value Reference Range Interpretation Comments ALCOHOL (test code = ALC) mg/dL 0-3 - CT L-SPINE W/O [id number] 23:26:00 Name: MANDY ASCENCIO [facility] : 1985 Age/S: 33 / F [address] Unit #: [id number] Loc: [facility] [place] [address] Phys: Geoffrey Bae MD Acct: [id number] Dis Date: Status: REG ER PHONE #: [phone] Exam Date: 07/19/2019 231 FAX #: [phone] Reason: back pain fall paralysis EXAMS: CPT CODE: [id number] CT L-SPINE W/O CONTRAST 83958 Exam: CT L-spine. Location: H 12 History: back pain fall paralysis Technique: Unenhanced spiral slices were taken through the lumbar spine. Sagittal and coronal reformations were performed. One or more of the following dose reduction techniques were used: Automated exposure control, adjustment of the mA and/or kV according to patient size, and/or utilization of iterative reconstruction technique. Findings: There is a slightly displaced fracture involving the left L4 transverse process. No other fracture or dislocation is seen. The remaining bony cortices are intact. The disc spaces are well preserved. No traumatic canal stenosis or foraminal narrowing is seen. The vertebral bodies demonstrate normal heights. The spine is in good alignment. The surrounding soft tissues are normal. IMPRESSION: Unremarkable exam. at 2326 Reported and signed by: Wolf Frost M.D. CC: Geoffrey Bae MD Technologist:CY CLEMONS CTDI: DLP: Trnscb Date/Time: 07/19/2019 (9464) DiannaFC Orig Print D/T: S: 07/19/2019 (2329) PAGE 1 Signed Report - CT T-SPINE W/O CONTRAST 2019-07-19 23:26:00 Name: MANDY ASCENCIO [facility] : 1985 Age/S: 33 / F [address] Unit #: [id number] Loc: [place] [address] Phys: Geoffrey Bae MD Acct: [id number] Dis Date: Status: REG ER PHONE #: [phone] Exam Date: 07/19/2019 2315 FAX #: [phone] Reason: back pain fall paralysis EXAMS: CPT CODE: [id number] CT T-SPINE W/O CONTRAST 00346 Exam: CT T-spine. Location: H 12 History: back pain fall paralysis Technique: Unenhanced spiral slices were taken through the thoracic spine. Sagittal and coronal reformations were performed. One or more of the following dose reduction techniques were used: Automated exposure control, adjustment of the mA and/or kV according to patient size, and/or utilization of iterative reconstruction technique. Findings: No fracture or dislocation is seen in the spine. The bony cortices are intact. The disc spaces are well preserved. The vertebral bodies demonstrate normal heights and alignment. The spinal canal is capacious. No spinal stenosis is seen. The neural foramina are patent. The surrounding paraspinal soft tissues are normal. A nondisplaced fractures present about the left 9th rib. Impression: Unremarkable exam. at 2326 Reported and signed by: Wolf Frost M.D. CC: Geoffrey Bae MD Technologist:CY CLEMONS CTDI: DLP: Trnscb Date/Time: 07/19/2019 (2326) [email or web address] Orig Print D/T: S: 07/19/2019 (2330) PAGE 1 Signed Report - CT C-SPINE W/O [id number] 23:23:00 Name: MANDY ASCENCIO [facility] : 1985 Age/S: 33 / F [address] Unit #: [id number] Loc: [place] [address] Phys: Geoffrey Bae MD Acct: [id number] Dis Date: Status: REG ER PHONE #: [phone] Exam Date: 07/19/2019 2315 FAX #: [phone] Reason: Neck Pain EXAMS: CPT CODE: [id number] CT C-SPINE W/O CONTRAST 77698 Exam: CT C-spine. Location: H 12 History: Neck Pain Technique: Unenhanced spiral slices were taken through the cervical spine. Sagittal and coronal reformations were performed. One or more of the following dose reduction techniques were used: Automated exposure control, adjustment of the mA and/or kV according to patient size, and/or utilization of iterative reconstruction technique. Findings: No fracture or dislocation is seen. The bony cortices are intact. The disc spaces are well preserved. No traumatic canal stenosis or foraminal narrowing is seen. The vertebral bodies demonstrate normal heights. The spine is in good alignment. The surrounding soft tissues are normal. IMPRESSION: Unremarkable exam. at 2323 Reported and signed by: Wolf Frost M.D. CC: Geoffrey Bae MD Technologist:CY CLEMONS CTDI: DLP: Trnscb Date/Time: 07/19/2019 (2322) [email or web address] Orig Print D/T: S: 07/19/2019 (6758) PAGE 1 Signed Report PROTHROMBIN [id number] 23:22:00* Test Item Value Reference Range Interpretation Comments PROTHROMBIN TIME PATIENT (test code = PTP) 12.4 seconds 9.0-14.0 N INTERNATIONAL NORMAL RATIO (test code = INR) 1.1 0.8-1.2 N The therapeutic range for oral anticoagulant therapy formost indications is an international normalized ratio (INR)of between 2.0 and 3.0. The recommended therapeutic INRrange for various clinical situations is listed below: Clinical Situation INR range Pulmonary e mbolism treatment (2.0-3.0)Venous thrombosis treatmentVenous thrombosis prophylaxis (high risk surgery)Prevention of systemic embolism from: Acute myocardial infarction Valvular heart disease Atrial fibrillation Mechanical prosthetic heart valves (2.5-3.5) IS PATIENT ON ANTICOAGULANTS? NTHROMBOPLASTIN TIME [id number] 23:22:00* Test Item Value Reference Range Interpretation Comments THROMBOPLASTIN TIME PARTIAL (test code = PTT) 28.7 seconds 23.0-37. 0 N IS PATIENT ON ANTICOAGULANTS? N- CT HEAD/BRAIN W/O [id number] 23:22:00 Name: MANDY ASCENCIO [facility] : 1985 Age/S: 33 / F [address] [email or web address] Unit #: [id number] Loc: [place] [address] Phys: Blaze Bae MD Acct: [id number] Di s Date: Status: REG ER PHONE #: Exam Date: 07/19/2019 2315 FAX #: [phone] Reason: HEADACHE EXAMS: CPT CODE: [id number] CT HEAD/BRAIN W/O CONT 66111 Exam: CT head without con trast. Location: H 12 History: HEADACHE Technique: Unenhanced spiral slices were taken from the base of the skul l, through the vertex. One or more of the following dose reduction techniq ues were used: Automated exposure control, adjustment of the mA and/or kV according to patient size, and/or utilization of iterative reconstruction technique. Findings: No acute intracranial abnormality is id entified. The brain parenchyma and the CSF spaces are unremarkable. No mas s, midline shift, hemorrhage, hydrocephalus or edema is seen. The visualiz ed paranasal sinuses are clear. The mastoid air cells are well pneumatized . The bony calvarium is intact. An endotracheal tube is in place. Impression: 1. No acute intracranial abnormality. 2. Ot herwise unremarkable exam. at 2322 Reported and signed by: Wolf Frost M.D. CC: Geoffrey Bae MD Technologis t:CY SOLORZANO CT CTDI: DLP: Trnscb Date/Time: (9762) Maricruz Orig Print D/T: S: 07/19/2019 ( 325) PAGE 1 Signed Report BASIC METABOLIC [id number] 23:14:00* Test Item Value Reference Range Interpretation Comments SODIUM (test code = NA) 141 mmol/L 136-145 N POTASSIUM (test code = K) 3.7 mmol/L 3.5-5.1 N CHLORIDE (test code = CL) 107.0 mmol/L 98-107 N CARBON DIOXIDE (test code = CO2) mmol/L 21-32 ANION GAP (test code = GAP) 10-20 GLUCOSE (test code = GLU) mg/dL 74-106 BLOOD UREA NITROGEN (test code = BUN) mg/dL 7-18 GLOMERULAR FILTRATION RATE (test code = GFR) mL/min >=60 CREATININE (test code = CREAT) mg/dL 0.55-1.02 BUN/CREATININE RATIO (test code = BUN/CREA) 10-20 CALCIUM (test code = CA) mg/dL 8.5-10.1 HEPATIC FUNCTION [id number] 23:14:00* Test Item Value Reference Range Interpretation Comments TOTAL PROTEIN (test code = PROT) gram/dL 6.4-8.2 ALBUMIN (test code = ALB) g/dL 3.4-5.0 GLOBULIN (test code = GLOB) gram/dL 2.7-4.2 ALBUMIN/GLOBULIN RATIO (test code = A/G) 0.75-1.50 BILIRUBIN TOTAL (test code = BILT) mg/dL 0.0-1.0 BILIRUBIN DIRECT (test code = BILD) mg/dL 0.0-0.20 SGOT/AST (test code = AST) IUnit/L 15-37 SGPT/ALT (test code = ALT) IUnit/L 12-78 ALKALINE PHOSPHATASE TOTAL (test code = ALKP) IUnit/L 45-117 HCG SERUM [id number] 23:14:00* Test Item Value Reference Range Interpretation Comments HCG SERUM BETA (test code = HCG) mIU/mL 0-3 [id number] 23:14:00* Test Item Value Reference Range Interpretation Comments TROPONIN-I (test code = TROPI) ng/mL 0-0.045 [id number] 23:14:00* Test Item Value Reference Range Interpretation Comments ACETAMINOPHEN (test code = ACET) mcg/mL 10-30 [id number] 23:14:00* Test Item Value Reference Range Interpretation Comments SALICYLATE (test code = CHRIS) mg/dL 2.8-20.0 [id number] 23:14:00* Test Item Value Reference Range Interpretation Comments ALCOHOL (test code = ALC) mg/dL 0-3 CBC W/O [id number] 22:57:00* Test Item Value Reference Range Interpretation Comments WHITE BLOOD CELL (test code = WBC) 18.0 K/mm3 4.5-12.5 H RED BLOOD CELL (test code = RBC) 4.74 mill/mm3 3.7-5.2 N HEMOGLOBIN (test code = HGB) 14.1 gram/dL 11.5-15.5 N HEMATOCRIT (test code = HCT) 41.5 % 36.0-46.0 N MEAN CELL VOLUME (test code = MCV) 87.6 fL 80-98 N MEAN CELL HGB (test code = MCH) 29.7 picogram 27.0-33.0 N MEAN CELL HGB CONCETRATION (test code = MCHC) 34.0 gram/dL 33.0-36. 0 N RED CELL DISTRIBUTION WIDTH (test code = RDW) 14.6 % 11.6-16. 2 N PLATELET COUNT (test code = PLT) 261 K/mm3 150-450 N MEAN PLATELET VOLUME (test code = MPV) 9.3 fL 6.7-11.0 N CBC W/O [id number] 22:54:00* Test Item Value Reference Range Interpretation Comments WHITE BLOOD CELL (test code = WBC) K/mm3 4.5-12.5 RED BLOOD CELL (test code = RBC) mill/mm3 3.7-5.2 HEMOGLOBIN (test code = HGB) 14.1 gram/dL 11.5-15.5 N HEMATOCRIT (test code = HCT) 41.5 % 36.0-46.0 N MEAN CELL VOLUME (test code = MCV) fL 80-98 MEAN CELL HGB (test code = MCH) picogram 27.0-33.0 MEAN CELL HGB CONCETRATION (test code = MCHC) gram/dL 33.0-36. 0 RED CELL DISTRIBUTION WIDTH (test code = RDW) % 11.6-16. 2 PLATELET COUNT (test code = PLT) K/mm3 150-450 MEAN PLATELET VOLUME (test code = MPV) fL 6.7-11.0 [id number] 20:06:00* Test Item Value Reference Range Interpretation Comments GLUBED (test code = GLUBED) 149 mg/dL 74-106 H Performed by certified decator operator at [facility] ([facility])[3] BASIC METABOLIC [id number] 08:50:00* Test Item Value Reference Range Interpretation Comments SODIUM (test code = NA) 139 mmol/L 136-145 RESU LT VERIFIED BY REPEAT ANALYSIS POTASSIUM (test code = K) 3.9 mmol/L 3.5-5.1 N CHLORIDE (test code = CL) 106.0 mmol/L 98-107 N CARBON DIOXIDE (test code = CO2) 26.0 mmol/L 21-32 N ANION GAP (test code = GAP) 10.9 10-20 N GLUCOSE (test code = GLU) 99 mg/dL 74-106 N BLOOD UREA NITROGEN (test code = BUN) 4 mg/dL 7-18 L GLOMERULAR FILTRATION RATE (test code = GFR) > 60 mL/min >=60 Estimated GFR by using Modified MDRD formula.Chronic kidney disease is defined as either kidney damageor GFR <60 mL/min/1.73 m2 for >3 months. CREATININE (test code = CREAT) 0.50 mg/dL 0.55-1.02 L Note change in reference range due to change in reagent. BUN/CREATININE RATIO (test code = BUN/CREA) 8.0 10-20 L CALCIUM (test code = CA) 8.5 mg/dL 8.5-10.1 N LIPID PROFILE (CORONARY RISK)2019-07-18 08:50:00* Test Item Value Reference Range Interpretation Comments TRIGLYCERIDES (test code = TRIG) 55 mg/dL 20-150 N CHOLESTEROL (test code = CHOL) 165 mg/dL 0-200 N CHOLESTEROL/HDL RATIO (test code = CHOLHDL) 2.0 RATIO 0-4.9 N RISK ASSOCIATED WITH CHOL/HDL RATIOS: Risk Male Female1/2 AVERAGE 3.43 3.27AVERAGE 4.97 4.442X AVERAGE 9.55 7.053X AVERAGE 23.39 11.04 REFERENCE VALUE IS RELATED TO RISK LEVELS ASRECOMMENDED BY THE OPAL. HEART, LUNG, AND BLOOD INST. HDL CHOLESTEROL (test code = HDL) 75 mg/dL 40-60 H LIPOPROTEIN LDL (test code = LDL) 84 mg/dL 100-129 L Reference Interval: mg/dL mmol/L Optimal <100 <2.6Near/above optimal 100-129 2.6- 3.3Borderline High 130-159 3.4-4.1High 160-189 4.1-4.9Very High >=190 >=4.9========= This LDL result is a direct measurement.========= BASIC METABOLIC [id number] 08:46:00* Test Item Value Reference Range Interpretation Comments SODIUM (test code = NA) 139 mmol/L 136-145 RESU LT VERIFIED BY REPEAT ANALYSIS POTASSIUM (test code = K) 3.9 mmol/L 3.5-5.1 N CHLORIDE (test code = CL) 106.0 mmol/L 98-107 N CARBON DIOXIDE (test code = CO2) mmol/L 21-32 ANION GAP (test code = GAP) 10-20 GLUCOSE (test code = GLU) mg/dL 74-106 BLOOD UREA NITROGEN (test code = BUN) mg/dL 7-18 GLOMERULAR FILTRATION RATE (test code = GFR) mL/min >=60 CREATININE (test code = CREAT) mg/dL 0.55-1.02 BUN/CREATININE RATIO (test code = BUN/CREA) 10-20 CALCIUM (test code = CA) mg/dL 8.5-10.1 LIPID PROFILE (CORONARY RISK)2019-07-18 08:46:00* Test Item Value Reference Range Interpretation Comments TRIGLYCERIDES (test code = TRIG) mg/dL 20-150 CHOLESTEROL (test code = CHOL) mg/dL 0-200 CHOLESTEROL/HDL RATIO (test code = CHOLHDL) RATIO 0-4.9 HDL CHOLESTEROL (test code = HDL) mg/dL 40-60 LIPOPROTEIN LDL (test code = LDL) mg/dL 100-129 CBC W/AUTO [id number] 08:19:00* Test Item Value Reference Range Interpretation Comments WHITE BLOOD CELL (test code = WBC) 7.5 K/mm3 4.5-12.5 N RED BLOOD CELL (test code = RBC) 4.62 mill/mm3 3.7-5.2 N HEMOGLOBIN (test code = HGB) 13.9 gram/dL 11.5-15.5 N HEMATOCRIT (test code = HCT) 40.7 % 36.0-46.0 N MEAN CELL VOLUME (test code = MCV) 88.1 fL 80-98 N MEAN CELL HGB (test code = MCH) 30.1 picogram 27.0-33.0 N MEAN CELL HGB CONCETRATION (test code = MCHC) 34.2 gram/dL 33.0-36. 0 N RED CELL DISTRIBUTION WIDTH (test code = RDW) 14.6 % 11.6-16. 2 N RED CELL DISTRIBUTION WIDTH SD (test code = RDW-SD) 46.6 fL 37 .0-51.0 N PLATELET COUNT (test code = PLT) 245 K/mm3 150-450 N MEAN PLATELET VOLUME (test code = MPV) 9.4 fL 6.7-11.0 N NEUTROPHIL % (test code = NT%) 81.3 % 39.0-69.0 H IMMATURE GRANULOCYTE % (test code = IG%) 0.3 % 0.0-5.0 N LYMPHOCYTE % (test code = LY%) 15.7 % 25.0-55.0 L MONOCYTE % (test code = MO%) 2.4 % 0.0-10.0 N EOSINOPHIL % (test code = EO%) 0.0 % 0.0-5.0 N BASOPHIL % (test code = BA%) 0.3 % 0.0-1.0 N NUCLEATED RBC % (test code = NRBC%) 0.0 % 0-0 N NEUTROPHIL # (test code = NT#) 6.07 K/mm3 1.8-7.7 N IMMATURE GRANULOCYTE # (test code = IG#) 0.02 x10 3/uL 0-0.03 N LYMPHOCYTE # (test code = LY#) 1.17 K/mm3 1.0-5.0 N MONOCYTE # (test code = MO#) 0.18 K/mm3 0-0.8 N EOSINOPHIL # (test code = EO#) 0.00 K/mm3 0.0-0.5 N BASOPHIL # (test code = BA#) 0.02 K/mm3 0.0-0.2 N NUCLEATED RBC # (test code = NRBC#) 0.00 K/mm3 0.0-0.1 N CBC W/AUTO [id number] 08:18:00* Test Item Value Reference Range Interpretation Comments WHITE BLOOD CELL (test code = WBC) K/mm3 4.5-12.5 RED BLOOD CELL (test code = RBC) mill/mm3 3.7-5.2 HEMOGLOBIN (test code = HGB) 13.9 gram/dL 11.5-15.5 N HEMATOCRIT (test code = HCT) 40.7 % 36.0-46.0 N MEAN CELL VOLUME (test code = MCV) fL 80-98 MEAN CELL HGB (test code = MCH) picogram 27.0-33.0 MEAN CELL HGB CONCETRATION (test code = MCHC) gram/dL 33.0-36. 0 RED CELL DISTRIBUTION WIDTH (test code = RDW) % 11.6-16. 2 RED CELL DISTRIBUTION WIDTH SD (test code = RDW-SD) fL 37 .0-51.0 PLATELET COUNT (test code = PLT) K/mm3 150-450 MEAN PLATELET VOLUME (test code = MPV) fL 6.7-11.0 NEUTROPHIL % (test code = NT%) % 39.0-69.0 IMMATURE GRANULOCYTE % (test code = IG%) % 0.0-5.0 LYMPHOCYTE % (test code = LY%) % 25.0-55.0 MONOCYTE % (test code = MO%) % 0.0-10.0 EOSINOPHIL % (test code = EO%) % 0.0-5.0 BASOPHIL % (test code = BA%) % 0.0-1.0 NEUTROPHIL # (test code = NT#) K/mm3 1.8-7.7 LYMPHOCYTE # (test code = LY#) K/mm3 1.0-5.0 MONOCYTE # (test code = MO#) K/mm3 0-0.8 EOSINOPHIL # (test code = EO#) K/mm3 0.0-0.5 BASOPHIL # (test code = BA#) K/mm3 0.0-0.2 [id number] 21:30:00* Test Item Value Reference Range Interpretation Comments GLUBED (test code = GLUBED) 81 mg/dL 74-106 N Performed by certified decator operator at [facility] ([facility])[3] DRUGS OF ABUSE SCREEN [id number] 21:05:00* Test Item Value Reference Range Interpretation Comments UA PH DIPSTICK (test code = ANAIS) 6.5 5.0-8.0 URN COCAINE (test code = COCAURN) NEGATIVE <300 ng/mL URN CANNABINOIDS (test code = CANNABURN) NEGATIVE <50 ng/mL URN AMPHETAMINE (test code = AMPHETURN) NEGATIVE <1000 ng/mL URN BARBITURATE (test code = BARBITURN) NEGATIVE <200 ng/mL URN BENZODIAZEPINE (test code = BENZOURN) NEGATIVE <200 ng/mL URN OPIATES (test code = OPIATURN) NEGATIVE <300 ng/mL URN PHENCYCLIDINE (PCP) (test code = PHENCURN) NEGATIVE <25 ng/ mL URN METHADONE (test code = METHAURN) NEGATIVE <300 ng/mL DRUGS OF ABUSE SCREEN [id number] 20:49:00* Test Item Value Reference Range Interpretation Comments UA PH DIPSTICK (test code = ANAIS) 5.0-8.0 URN COCAINE (test code = COCAURN) NEGATIVE <300 ng/mL URN CANNABINOIDS (test code = CANNABURN) NEGATIVE <50 ng/mL URN AMPHETAMINE (test code = AMPHETURN) NEGATIVE <1000 ng/mL URN BARBITURATE (test code = BARBITURN) NEGATIVE <200 ng/mL URN BENZODIAZEPINE (test code = BENZOURN) NEGATIVE <200 ng/mL URN OPIATES (test code = OPIATURN) NEGATIVE <300 ng/mL URN PHENCYCLIDINE (PCP) (test code = PHENCURN) NEGATIVE <25 ng/ mL URN METHADONE (test code = METHAURN) NEGATIVE <300 ng/mL [id number] 20:44:00* Test Item Value Reference Range Interpretation Comments GLYCOSYLATED HEMOGLOBIN (HA1C) (test code = GLYHGB) 5.1 % HbA1 SUGGESTED DIAGNOSIS: HbA1C (%) Diabetic >6.4Prediabetes 5.7 - 6.4Normal <5.7 ESTIMATED AVERAGE GLUCOSE (test code = EAG) 100 MG/DL [id number] 20:36:00* Test Item Value Reference Range Interpretation Comments ALCOHOL (test code = ALC) 303 mg/dL 0.0-3.0 H -- INTERPRETIVE DATA NOTE: POSITIVE SCREENING RESULTS SHOULD BE CONSIDERED PRESUMPTIVE.WHEN COLLECTED FOR MEDICAL PURPOSES ONLY. SPECIMEN WILL NOTBE COLLECTED BY CHAIN OF CUSTODY.IF A CONFIRMATION OF POSITIVE RESULTS IS DESIRED, ACONFIRMATION TEST MUST BE REQUESTED BY THE PHYSICIAN AT ANADDITIONAL CHARGE TO THE PATIENT. - CTA CHEST FOR [id number] 17:54:00 Name: MANDY ASCENCIO [facility] : 1985 Age/S: 33 / F [address] [facility] Unit #: [id number] Loc: [place] [address] Phys: Edgar Lerma DO Acct: [id number] Dis Date: Status: REG ER PHONE #: [phone] Exam Date: 07/17/2019 1742 FAX #: [phone] Reason: hypoxic, tachycardic, clear CXR, evaluate for P EXAMS: CPT CODE: [id number] [place] [id number] REASON FOR EXAM: hypoxic, tachycardic, clear CXR, evaluate for PE EXAM ORDER DATE: 07/17/2019 4:17 PM Ordering: Edgar Lerma DO Attending:Edgar Lerma DO Location:[facility] COMPARISON: PROCEDURE: - CTA CHEST FOR PE FINDINGS: CT images of the chest were obtained with IV contrast. Reconstructed sagittal and coronal images of the chest were provided for interpretation. Dose modulation, iterative reconstruction, and/or weight based adjustment of the MA/KV was utilized to reduce the radiation dose to as low as reasonably achievable. Intravenous contrast: 100cc of Omnipaque 370. The heart size is within normal limits. No evidence of pericardial effusion The thoracic aorta is unremarkable. No evidence of dissection or aneurysmal dilatation. No filling defect seen within the main or lobar pulmonary arteries to suggest pulmonary embolus. No evidence of mediastinal or hilar adenopathy. The lungs are clear. No evidence of pleural effusion IMPRESSION: No acute findings in the chest. at 1754 Reported and signed by: Toro Reed M.D. CC: Edgar Lerma chnologist:Vashti Osoiro RT(R); WILFRIDO Urrutia CTDI: DLP: Trnscb Date/ Time: 07/17/2019 (1754) tTD Orig Print D/T: S: 07/05 (9424) PAGE 1 Signed Report URINALYSIS [id number] 16:15:00* Test Item Value Reference Range Interpretation Comments UA COLOR (test code = COLU) Light-Loíza YELLOW UA APPEARANCE (test code = APPU) Cloudy CLEAR A UA GLUCOSE DIPSTICK (test code = DGLUU) NEGATIVE mg/dL NEGATIVE UA BILIRUBIN DIPSTICK (test code = BILU) NEGATIVE mg/dL NEGATIVE UA KETONE DIPSTICK (test code = KETU) NEGATIVE mg/dL NEGATIVE UA SPECIFIC GRAVITY (test code = SGU) 1.014 1.001-1.035 UA BLOOD DIPSTICK (test code = CINDY) 1.0 mg/dL (3+) mg/dL NEGATIVE A UA PH DIPSTICK (test code = ANAIS) 6.5 5.0-8.0 UA PROTEIN DIPSTICK (test code = PROU) 30 (1+) mg/dL NEGATIVE A UA UROBILINIOGEN DIPSTICK (test code = URO) Normal mg/dL NEGATIVE UA NITRITE DIPSTICK (test code = ESTEVAN) NEGATIVE NEGATIVE UA LEUKOCYTE ESTERASE W REFLEX (test code = LEUUR) 250 Sunday/u L (2+) Sunday/uL NEGATIVE A UA WBC (test code = WBCU) 21-50 per HPF 0-5 A UA RBC (test code = RBCU) 11-20 #/HPF 0-5 A UA WBC CLUMPS (test code = WBCUCL) 3-6 /HPF NONE A UA EPITHELIAL CELLS (test code = EPIU) MANY per HPF FEW UA BACTERIA (test code = BACU) FEW #/HPF NONE A UA MUCUS (test code = MUCU) MANY #/LPF FEW A Urine Source? Clean CatchPROCALCITONIN (PCT)2019-07-17 16:08:00* Test Item Value Reference Range Interpretation Comments PROCALCITONIN (PCT) (test code = PROCAL) < 0.05 ng/ml Concentration Interpretation (ng/mL) <0.51 Sepsis is not likely. Local bacterial infection is possible. (LOW RISK for progression to Sepsis) 0.51 - 2.00 Sepsis is possible, but other conditions are known to elevate PCT as well. (MODERATE RISK for progression to Sepsis) > 2.00 Sepsis is likely, unless other causes are known. (HIGH RISK for progression to Severe Sepsis or Septic Shock) 10.00 High likelihood of Severe Sepsis or Septic or higher Shock. *Increased PCT levels may not always be related to systemic bacterial infection.*Low PCT levels do not automatically exclude the presence of bacterial infection.*All results should be interpreted taking into account the patients history. B-TYPE NATRIURETIC [id number] 15:48:00* Test Item Value Reference Range Interpretation Comments B-TYPE NATRIURETIC PEPTIDE (test code = BNP) 20.39 pgram/mL 0-100 N - CT HEAD/BRAIN W/O [id number] 15:44:00 Name: MANDY ASCENCIO [facility] : 1985 Age/S: 33 / F [address] Unit #: [id number] Loc: [place] [address] Phys: Edgar Lerma DO Acct: [id number] Dis Date: Status: REG ER PHONE #: [phone] Exam Date: 07/17/2019 1542 FAX #: [phone] Reason: Altered Mental Status EXAMS: CPT CODE: [id number] CT HEAD/BRAIN W/O CONT 81328 REASON FOR EXAM: Altered Mental Status EXAM ORDER DATE: 07/17/2019 2:03 PM Ordering: Edgar Lerma DO Attending:Edgar Lerma DO Location:[facility] PROCEDURE: - CT HEAD/BRAIN W/O CONT COMPARISON: 02/02/2018 FINDINGS: CT images of the brain were obtained without IV contrast. Dose modulation, iterative reconstruction, and/or weight based adjustment of the MA/KV was utilized to reduce the radiation dose to as low as reasonably achievable. The brain parenchyma is within normal limits. The pitts-white matter delineation is unremarkable. The ventricles, cisterns, and sulci are unremarkable. There is no evidence of hemorrhage, mass, mass effect. There is no evidence of acute or old infarct. The calvarium is intact. IMPRESSION: Unremarkable brain. at 1544 Reported and signed by: Toro Reed M.D. CC: Edgar Lerma DO Technologist:Vashti FULLER(R); WILFRIDO Urrutia CTDI: DLP: Trnscb Date/Time: 07/17/2019 ( 1544) tTD Orig Print D/T: S: 07/17/2019 (4706) PAGE 1 Signed Report LACTIC [id number] 15:37:00* Test Item Value Reference Range Interpretation Comments LACTIC ACID (test code = LACT) 1.9 mmol/L 0.4-1.9 N HEPATIC FUNCTION [id number] 15:37:00* Test Item Value Reference Range Interpretation Comments TOTAL PROTEIN (test code = PROT) 7.2 gram/dL 6.4-8.2 N ALBUMIN (test code = ALB) 3.6 g/dL 3.4-5.0 N GLOBULIN (test code = GLOB) 3.6 gram/dL 2.7-4.2 N ALBUMIN/GLOBULIN RATIO (test code = A/G) 1.0 0.75-1.50 N BILIRUBIN TOTAL (test code = BILT) 0.20 mg/dL 0.0-1.0 N BILIRUBIN DIRECT (test code = BILD) 0.08 mg/dL 0.0-0.20 N SGOT/AST (test code = AST) 32 IUnit/L 15-37 N SGPT/ALT (test code = ALT) 37 IUnit/L 12-78 N ALKALINE PHOSPHATASE TOTAL (test code = ALKP) 84 IUnit/L 45-117 N Note change in reference range due to change in reagent. LACTIC DEHYDROGENASE(LDH)2019-07-17 15:37:00* Test Item Value Reference Range Interpretation Comments LACTIC DEHYDROGENASE(LDH) (test code = LDH) 201 IUnit/L 84-246 N [id number] 15:37:00* Test Item Value Reference Range Interpretation Comments LIPASE (test code = LIP) 81 U/L 73.0-393.0 N [id number] 15:37:00* Test Item Value Reference Range Interpretation Comments TROPONIN-I (test code = TROPI) <0.015 ng/mL 0-0.045 N [id number] 15:37:00* Test Item Value Reference Range Interpretation Comments FERRITIN (test code = KYLE) 12 ng/mL 8-388 N C REACTIVE [id number] 15:37:00* Test Item Value Reference Range Interpretation Comments C REACTIVE PROTEIN (test code = CRP) 0.34 mg/dL 0-0.3 H BASIC METABOLIC [id number] 15:27:00* Test Item Value Reference Range Interpretation Comments SODIUM (test code = NA) 146 mmol/L 136-145 H POTASSIUM (test code = K) 3.9 mmol/L 3.5-5.1 N CHLORIDE (test code = CL) 112.0 mmol/L 98-107 H CARBON DIOXIDE (test code = CO2) 26.0 mmol/L 21-32 N ANION GAP (test code = GAP) 11.9 10-20 N GLUCOSE (test code = GLU) 85 mg/dL 74-106 N BLOOD UREA NITROGEN (test code = BUN) 2 mg/dL 7-18 L GLOMERULAR FILTRATION RATE (test code = GFR) > 60 mL/min >=60 Estimated GFR by using Modified MDRD formula.Chronic kidney disease is defined as either kidney damageor GFR <60 mL/min/1.73 m2 for >3 months. CREATININE (test code = CREAT) 0.50 mg/dL 0.55-1.02 L Note change in reference range due to change in reagent. BUN/CREATININE RATIO (test code = BUN/CREA) 4.0 10-20 L CALCIUM (test code = CA) 8.2 mg/dL 8.5-10.1 L HCG SERUM [id number] 15:27:00* Test Item Value Reference Range Interpretation Comments HCG SERUM QUAL (test code = HCGQL) NEGATIVE NEGATIVE This HCGQL test is NOT applicable for MALE patients.Check with nurse about probable order error.If Tumor Marker Test needed, nurse should order test "HCGTU"(Test #[id number]) BASIC METABOLIC [id number] 15:26:00* Test Item Value Reference Range Interpretation Comments SODIUM (test code = NA) 146 mmol/L 136-145 H POTASSIUM (test code = K) 3.9 mmol/L 3.5-5.1 N CHLORIDE (test code = CL) 112.0 mmol/L 98-107 H CARBON DIOXIDE (test code = CO2) 26.0 mmol/L 21-32 N ANION GAP (test code = GAP) 11.9 10-20 N GLUCOSE (test code = GLU) 85 mg/dL 74-106 N BLOOD UREA NITROGEN (test code = BUN) 2 mg/dL 7-18 L GLOMERULAR FILTRATION RATE (test code = GFR) > 60 mL/min >=60 Estimated GFR by using Modified MDRD formula.Chronic kidney disease is defined as either kidney damageor GFR <60 mL/min/1.73 m2 for >3 months. CREATININE (test code = CREAT) 0.50 mg/dL 0.55-1.02 L Note change in reference range due to change in reagent. BUN/CREATININE RATIO (test code = BUN/CREA) 4.0 10-20 L CALCIUM (test code = CA) 8.2 mg/dL 8.5-10.1 L HCG SERUM [id number] 15:26:00* Test Item Value Reference Range Interpretation Comments HCG SERUM QUAL (test code = HCGQL) NEGATIVE Coronavirus 2019 nCoV [id number] 15:21:00* Test Item Value Reference Range Interpretation Comments Coronavirus 2019 nCoV Bedside (test code = [id number]) Negative Is patient requiring admission or transfer? YIndication for rapid COVID-19 testi ng: Mod Clinical SuspicionCBC W/AUTO DIFF 2019-07-17 15:09:00* Test Item Value Reference Range Interpretation Comments WHITE BLOOD CELL (test code = WBC) 5.5 K/mm3 4.5-12.5 N RED BLOOD CELL (test code = RBC) 4.48 mill/mm3 3.7-5.2 N HEMOGLOBIN (test code = HGB) 13.5 gram/dL 11.5-15.5 N HEMATOCRIT (test code = HCT) 39.4 % 36.0-46.0 N MEAN CELL VOLUME (test code = MCV) 87.9 fL 80-98 N MEAN CELL HGB (test code = MCH) 30.1 picogram 27.0-33.0 N MEAN CELL HGB CONCETRATION (test code = MCHC) 34.3 gram/dL 33.0-36. 0 N RED CELL DISTRIBUTION WIDTH (test code = RDW) 14.8 % 11.6-16. 2 N RED CELL DISTRIBUTION WIDTH SD (test code = RDW-SD) 47.6 fL 37 .0-51.0 N PLATELET COUNT (test code = PLT) 253 K/mm3 150-450 N MEAN PLATELET VOLUME (test code = MPV) 9.3 fL 6.7-11.0 N NEUTROPHIL % (test code = NT%) 51.5 % 39.0-69.0 N IMMATURE GRANULOCYTE % (test code = IG%) 0.5 % 0.0-5.0 N LYMPHOCYTE % (test code = LY%) 43.1 % 25.0-55.0 N MONOCYTE % (test code = MO%) 4.2 % 0.0-10.0 N EOSINOPHIL % (test code = EO%) 0.2 % 0.0-5.0 N BASOPHIL % (test code = BA%) 0.5 % 0.0-1.0 N NUCLEATED RBC % (test code = NRBC%) 0.0 % 0-0 N NEUTROPHIL # (test code = NT#) 2.83 K/mm3 1.8-7.7 N IMMATURE GRANULOCYTE # (test code = IG#) 0.03 x10 3/uL 0-0.03 N LYMPHOCYTE # (test code = LY#) 2.37 K/mm3 1.0-5.0 N MONOCYTE # (test code = MO#) 0.23 K/mm3 0-0.8 N EOSINOPHIL # (test code = EO#) 0.01 K/mm3 0.0-0.5 N BASOPHIL # (test code = BA#) 0.03 K/mm3 0.0-0.2 N NUCLEATED RBC # (test code = NRBC#) 0.00 K/mm3 0.0-0.1 N MANUAL DIFF REQUIRED (test code = MDIFF) NO CBC W/AUTO [id number] 15:05:00* Test Item Value Reference Range Interpretation Comments WHITE BLOOD CELL (test code = WBC) K/mm3 4.5-12.5 RED BLOOD CELL (test code = RBC) mill/mm3 3.7-5.2 HEMOGLOBIN (test code = HGB) 13.5 gram/dL 11.5-15.5 N HEMATOCRIT (test code = HCT) 39.4 % 36.0-46.0 N MEAN CELL VOLUME (test code = MCV) fL 80-98 MEAN CELL HGB (test code = MCH) picogram 27.0-33.0 MEAN CELL HGB CONCETRATION (test code = MCHC) gram/dL 33.0-36. 0 RED CELL DISTRIBUTION WIDTH (test code = RDW) % 11.6-16. 2 RED CELL DISTRIBUTION WIDTH SD (test code = RDW-SD) fL 37 .0-51.0 PLATELET COUNT (test code = PLT) K/mm3 150-450 MEAN PLATELET VOLUME (test code = MPV) fL 6.7-11.0 NEUTROPHIL % (test code = NT%) % 39.0-69.0 IMMATURE GRANULOCYTE % (test code = IG%) % 0.0-5.0 LYMPHOCYTE % (test code = LY%) % 25.0-55.0 MONOCYTE % (test code = MO%) % 0.0-10.0 EOSINOPHIL % (test code = EO%) % 0.0-5.0 BASOPHIL % (test code = BA%) % 0.0-1.0 NEUTROPHIL # (test code = NT#) K/mm3 1.8-7.7 LYMPHOCYTE # (test code = LY#) K/mm3 1.0-5.0 MONOCYTE # (test code = MO#) K/mm3 0-0.8 EOSINOPHIL # (test code = EO#) K/mm3 0.0-0.5 BASOPHIL # (test code = BA#) K/mm3 0.0-0.2 - XR CHEST 1 [id number] 14:56:00 FAX: Edgar Lerma DO [place]: St: REG Name: MANDY BARTHOLOMEW [facility] : [birth year] Age/S: 33/F [address] [facility] Unit #: [id number] Loc: [place] [address] Phys: Edgar Lerma DO Acct: [id number] Dis Date: Status: REG ER PHONE #: [phone] Exam Date: 07/17/2019 1429 FAX #: [phone] Reason: COUGH EXAMS: CPT CODE: [id number] XR CHEST 1 V 97318 REASON FOR EXAM: COUGH Exam Order Date: 07/17/2019 2:03 PM Ordering M.D.: Edgar Lerma DO PROCEDURE: - XR CHEST 1 V COMPARISON: Rib series October 25, 2017 FINDINGS: The lungs are clear. There is no pleural effusion or pneumothorax. Pulmonary vascularity is wit hin normal limits. Cardiomediastinal silhouette is normal in size for technique. The mediastinal contours are within normal limits. Musculoskeletal structures are within normal limits. Prior c holecystectomy. IMPRESSION: No acute cardiopulmo nary process. Location: [facility] at 1456 Reported and sig myrna by: José Miguel Cheng MD CC: Edgar Lerma DO Technologist: NITIN GABRIEL, RT(R) Trnscrd Date/Time/By: 07/17/2019 (7310) : By: [email or web address] Orig Print D/T: S: 07/17/2019 (3632) PAGE 1 Signed Report CHEM [id number] 08:31:002.2 [facility] XrvhebqEBYRXSHSMYJK6125-70-27 08:31:0010.2[facility] HermannELECTROLYTES 2018-12-11 08:31:00* Test Item Value Reference Range Interpretation Comments B/C Ratio (test code = B/C Ratio) 9 1 6-25 [facility] LwerrfpUEWOFDCVXLLS8863-59-70 08:31:003.4[facility] HermannELECTROLYTES 2018-12-11 08:31:00* Test Item Value Reference Range Interpretation Comments A/G Ratio (test code = A/G Ratio) 0.8 1 0.7-1.6 [facility] GrchqrdWIPWNZSLMPWY6928-96-13 08:31:0083[facility] HermannELECTROLYTES 2018-12-11 08:31:004[facility] FvefnmdHIZKUMPUXTBH4049-00-70 08:31:000.46[facility] ZnpxyirMQZODTLAXUIX0671-86-39 08:31:04666Aihzzqob ZkcxsdiWBAFHCZAKZDL1736-10-88 08:31:004.2[facility] UyaznnoZKGFEGTSZOLE5586-85-16 08:31:69621Dsajfkjm Andry EEWRNAWYHZYX1916-88-01 08:31:0026[facility] XxptrhhXTCCVFIBGIRS4938-94-85 08:31:00 8.1[facility] VzklfthENGIJTXBNPOC2351-90-32 08:31:006.2[facility] HOWEWUWOGMSB4387-67-31 08:31:002.8[facility] YofnegdUVFUWHLOIIWV1456-38-69 08:31:0022[facility] TwuwasbDILXTGVNFKRE8055-38-26 08:31:0033[facility] Andry DURTDRYEWVIK9267-99-74 08:31:78046Uvliclqr OzhsuwmQCPCRIOPLXNP7761-47-63 08:31:000.5[facility] XehctfwAXUZUBMLEGCT7430-43-95 08:31:00158Vsdttabm Andry ZUGRIJQFTW8203-21-99 08:31:004.0[facility] PavpxssLDKKBMGUXD3719-46-19 08:31:00 3.83[facility] GbrbnbvCHZANRQLXM0311-56-24 08:31:0012.3[facility] HermannHEMATOLOGY 2018-12-11 08:31:0036.4[facility] ItdwlvrHERXHKGMML8250-05-34 08:31:0095.1[facility] OunassaWIZXXCDQMP6857-83-62 08:31:00* Test Item Value Reference Range Interpretation Comments MCH (test code = MCH) 32.2 pg 27.0-31.0 [facility] SsmytfcMFEDTJQPIK0866-27-78 08:31:0033.8[facility] HermannHEMATOLOGY 2018-12-11 08:31:0015.3[facility] AlispjfVBUCRFBAOD4849-82-81 08:31:48367Dopiihrc LrmrqxtVSOELKBWMH4125-66-26 08:31:007.3[facility] LcdjxhpIAUZOPXLMZ6073-29-34 08:31:0046.5[facility] WfimqzlOTQDLGPYFA4408-90-58 08:31:0038.7[facility] FIBTCCUJXY2692-89-73 08:31:007.3[facility] IzzntyoCKYFRCPRDL5944-96-69 08:31:006.7 [facility] FrnssgmPIKHSFHCIR8592-12-64 08:31:000.8[facility] HermannHEMATOLOGY 2018-12-11 08:31:001.8[facility] RbeqllhWWKNKRVIYL8772-53-42 08:31:001.5[facility] NyiiiyvMPNLNMUYPM9079-64-16 08:31:000.3[facility] TshktpdQADHYOUJSK0723-08-98 08:31:000.3[facility] HermannCHEM BVXCS8957-76-84 09:31:0081[facility] HermannCHEM WOPMP7143-07-88 09:31:006[facility] HermannCHEM NKGPH2613-83-04 09:31:000.58 [facility] HermannCHEM HAVTF4048-07-15 09:31:69541Ulpoappm HermannCHEM PANEL 2018-12-10 09:31:003.7[facility] HermannCHEM DZFQV5219-04-41 09:31:04592Okzdfrpg HermannCHEM LVEDK8752-30-60 09:31:0027[facility] HermannCHEM YDIXX6691-34-46 09:31:008.1[facility] HermannCHEM SCBSU4073-67-15 09:31:0011.7[facility] HermannCHEM PPDYL1154-66-52 09:31:49035Wrxhwwok HermannCHEM OQHOY0145-42-02 09:31:001.2 [facility] HermannCARDIAC OJOJDUM1041-32-81 06:12:06507Mvcefbqx HermannCHEM PANEL 2018-12-09 06:12:001.8[facility] HermannDRUG KCGCLA0121-19-24 06:12:00Negative *NA*(12/09/18 1:12 AM)[facility] HermannDRUG LSCPEF7528-38-02 06:12:00Negative *NA*(12/09/18 1:12 AM)[facility] HermannDRUG QVRIHP8909-93-91 06:12:00Negative *NA*(12/09/18 1:12 AM)[facility] HermannDRUG SOHVUS7563-14-32 06:12:00Negative *NA*(12/09/18 1:12 AM)[facility] HermannDRUG FWNHRD2187-76-48 06:12:00Negative *NA*(12/09/18 1:12 AM)[facility] HermannDRUG HJTQNS0946-82-68 06:12:00Negative *NA*(12/09/18 1:12 AM)[facility] HermannDRUG VZPYZS3756-46-41 06:12:00Negative *NA*(12/09/18 1:12 AM)[facility] HermannDRUG WOJHMR7356-67-07 06:12:00See Note (12/09/18 1:12 AM)[facility] ZljaagnPHHCUBRUKBLZ0725-91-26 06:12:0011.1[facility] UulqbpyTNIYTOZTTWRR4554-71-59 06:12:0095[facility] SgnqatbXOPTEZGAGGUX9915-84-24 06:12:003[facility] LdmbejdHSALKLSVKXSO9947-82-37 06:12:000.66[facility] HSGAAUHJQAXK3312-16-53 06:12:02947Eckxpugt PbgstygURSIVGPLFGNB2780 06:12:003.1[facility] ZgdtqgzEWMDNTFWGROC6105-31-66 06:12:10056Ajoxjknj Ophir DTADZGGYLCMC5231-05-41 06:12:0026[facility] HqnqaceGRIYSDKZEVUK3775-19-42 06:12:00 9.2[facility] EarxrbpRGQPAOAWKJZS2920-65-39 06:12:62130Cumwugxi Ophir VKLXTMAXXJZND3813-88-68 06:12:00Negative *NA*(12/09/18 1:12 AM)[facility] DYMXVBHRCW8962-47-62 06:12:008.2[facility] KgxcmqyNLNYADSJAV3362-05-99 06:12:00 4.24[facility] FkcvgsiEJADVULWRL2199-45-09 06:12:0013.6[facility] HermannHEMATOLOGY 2018-12-09 06:12:0040.2[facility] OkrdnijLCQDOHDENR2444-44-83 06:12:0094.8[facility] PpbcguhEXHAFCLKGO5529-84-41 06:12:00* Test Item Value Reference Range Interpretation Comments MCH (test code = MCH) 32.2 pg 27.0-31.0 [facility] ThscuxqPMSCCOPBLX1713-71-35 06:12:0033.9[facility] HermannHEMATOLOGY 2018-12-09 06:12:0015.7[facility] TvtobimUZUPHXRDDZ7147-15-97 06:12:81968Ozmctato ZsjrkobHCFPQKBTRA5061-49-73 06:12:006.3[facility] SqomeobRCYJCTOFDW8107-85-98 06:12:0057.2[facility] HwstvbiQJZPNFKXMD1532-60-98 06:12:0037.4[facility] Andry GKXOIOXUKB6310-94-04 06:12:004.0[facility] VcyethdIRJKTAJJLX8966-13-04 06:12:000.5 [facility] ZjpevtdQXDUPWDTRL7654-02-43 06:12:000.9[facility] HermannHEMATOLOGY 2018-12-09 06:12:004.7[facility] BzyyvtxTVMXQERPEM2226-27-45 06:12:003.1[facility] JhqchahYBHEJEFPLL9332-79-11 06:12:000.3[facility] IflouoaNCJOUDDXUO7272-22-40 06:12:000.1[facility] VuwbwwpWSABIDIPMD5607-26-83 06:12:00<2 (12/09/18 1:12 AM) [facility] TznnngmRNNEFPMPEQ1054-35-26 06:12:50016Vqdwudli HermannTOXICOLOGY 2018-12-09 06:12:000.485[facility] KgtqevlCGMUPBPHQS8408-07-81 06:12:003.2[facility] HermannURINE AND DLPTT0551-34-52 06:12:00Colorless *NA*(12/09/18 1:12 AM)[facility] HermannURINE AND YPOKY8579-14-85 06:12:00Clear (12/09/18 1:12 AM)[facility] Andry URINE AND BILLF0225-04-36 06:12:00* Test Item Value Reference Range Interpretation Comments UA Spec Grav (test code = UA Spec Grav) 1.002 1 [facility]annURINE AND SVRDQ4674-11-71 06:12:00* Test Item Value Reference Range Interpretation Comments UA pH (test code = UA pH) 7.0 1 5.0-8.0 [facility]annUR[facility] AND IHLRZ5673-27-84 06:12:00Negative *NA*(12/09/18 1:12 AM) [facility]annUR[facility] AND RRTBT7557-67-38 06:12:00Negative (12/09/18 1:12 AM) [facility] AND CXJMT8112-39-34 06:12:00Negative (12/09/18 1:12 AM) [facility] AUVBV0553-04-47 06:12:00Negative (12/09/18 1:12 AM) [facility] AND YWZLW4909-82-00 20:52:00Light Yellow *NA*(12/05/18 3:52 PM)[facility]annUR[facility] AND DURKX4199-47-99 20:52:00Clear (12/05/18 3:52 PM) [facility] AND GFWDX0540-55-40 20:52:00* Test Item Value Reference Range Interpretation Comments UA Spec Grav (test code = UA Spec Grav) 1.008 1 [facility] AND FWYPL9495-45-17 20:52:00* Test Item Value Reference Range Interpretation Comments UA pH (test code = UA pH) 6.0 1 5.0-8.0 [facility] AND JGYLF8970-15-33 20:52:00Negative *NA*(12/05/18 3:52 PM) [facility] QUOIA1632-27-78 20:52:00Negative (12/05/18 3:52 PM) [facility] YCAOS3542-99-24 20:52:00Negative (12/05/18 3:52 PM) [facility] AND XGUEE4497-78-82 20:52:00Negative (12/05/18 3:52 PM) [facility] AND VVEQM7292-20-78 20:52:00Not Indicated *NA*(12/05/18 3:52 PM)[facility] HermannDRUG KXKADG6648-74-09 16:30:00Negative *NA*(12/05/18 11:30 AM)[facility] HermannDRUG ULXFYS7771-10-80 16:30:00Negative *NA*(12/05/18 11:30 AM)[facility] HermannDRUG VGLFLW9999-06-93 16:30:00Negative *NA*(12/05/18 11:30 AM)[facility] HermannDRUG YGHVKT4741-03-23 16:30:00Negative *NA*(12/05/18 11:30 AM)[facility] HermannDRUG KIZJJT3112-39-82 16:30:00Negative *NA*(12/05/18 11:30 AM)[facility] HermannDRUG OIUTQT4073-21-49 16:30:00Negative *NA*(12/05/18 11:30 AM)[facility]annDRUG TISKEM1291-80-30 16:30:00Negative *NA*(12/05/18 11:30 AM)[facility] HermannDRUG QTVAIN7203-89-01 16:30:00See Note (12/05/18 11:30 AM)[facility] HermannCHEM HRNZM7540-10-41 15:08:0086[facility] HermannCHEM PANEL 2018-12-05 15:08:003[facility] HermannCHEM ERRSC0737-28-09 15:08:000.60[facility] HermannCHEM PITII4894-66-12 15:08:53263Wwtlcelx HermannCHEM GRXGT2895-22-94 15:08:003.6[facility]annCHEM PUGRX7885-22-31 15:08:52130Yuawyxge HermannCHEM EONWO2110-35-23 15:08:0027[facility]annCHE[facility] GBBZY6810-67-24 15:08:009.3 [facility]CHE[facility] PWRXV8437-93-63 15:08:008.2[facility]annCHEM PANEL 2018-12-05 15:08:004.0[facility]annCHE[facility] CBFAA2485-22-94 15:08:0033[facility]annCHEM VILOD3582-11-95 15:08:0028[facility]annCHEM QAUGI7681-28-04 15:08:72990Aymnulol HermannCHEM WAODY8949-98-77 15:08:000.4[facility]annCHEM ALWYQ6139-04-29 15:08:31602Grljejbv HermannCHEM HTPAP2247-18-06 15:08:0012.6 [facility] PFZJP3698-67-75 15:08:00* Test Item Value Reference Range Interpretation Comments B/C Ratio (test code = B/C Ratio) 5 1 6-25 [facility] YBFGU3933-13-88 15:08:004.2[facility]annCHEM PANEL 2018-12-05 15:08:00* Test Item Value Reference Range Interpretation Comments A/G Ratio (test code = A/G Ratio) 1.0 1 0.7-1.6 [facility] YinwjwmOIBJBQKVQCHAG9735-48-33 15:08:00Negative *NA*(12/05/18 10:08 AM) [facility] BhjsmwxQKZRQOCWYS2590-93-57 15:08:007.8[facility]annHEMATOLOGY 2018-12-05 15:08:004.26[facility] TzkmfovTBWPMJUQSX4727-53-84 15:08:0013.6[facility] TuwovxsPYUFXHPSRU2497-57-88 15:08:0040.2[facility] AhyjhxuEEIAOAPDND2155-38-41 15:08:0094.3[facility] IagqrrnQHOCJQAQMS9827-42-24 15:08:00* Test Item Value Reference Range Interpretation Comments MCH (test code = MCH) 31.8 pg 27.0-31.0 [facility] PvbgqrsXECQZGETQQ0362-39-27 15:08:0033.8[facility]annHEMATOLOGY 2018-12-05 15:08:0015.5[facility] MgvmtlvHOMWMXTNFW5416-43-83 15:08:96035Bncaekqz TvemznvLXJHKQSJNR8210-27-63 15:08:006.5[facility] LkdtiqfZCUZBROMJX2041-71-43 15:08:0065.7[facility] HnlcfimAXTTRKKILV7281-29-07 15:08:0030.3[facility]ry HITTKHXFSO3729-87-21 15:08:002.9[facility] LocogwyLKCQNTAJDV5173-90-76 15:08:000.3 [facility] VwjyhruEIXXMCYCMY4599-79-79 15:08:000.8[facility]annHEMATOLOGY 2018-12-05 15:08:005.1[facility] RpigljzNJSPBFCQHQ6105-04-66 15:08:002.4[facility] JomlqyrXJWSVCVWXK6189-81-88 15:08:000.2[facility] JzsmzptJLHKFTDMGO3802-53-04 15:08:000.1[facility] MpubajjHGERQYBHLI4639-74-49 15:08:00<2 (12/05/18 10:08 AM) [facility] NbkzbquCSVCLJOGCY8504-70-21 15:08:98705Prhdxczd HermannTOXICOLOGY 2018-12-05 15:08:000.359[facility] UiplougPHUKYMLRWM4988-10-35 15:08:003.9[facility] HermannStrep screen eaeboze0159-06-51 11:21:37* Test Item Value Reference Range Interpretation Comments Strep screen culture isolate (test code = 2246) Strept ococcus group BThe performance characteristics of this assay on this isolatewere validated by the Microbiology Laboratory at [facility]. This source has not been approved by the U.[place]. Food and Drug Administration. The results are not intended to be used as the sole means for clinical diagnosis or patient management. The Microbiology Laboratory is authorized under the clinical Laboratory Improvement Amendments of 1988 (CLIA-88) to perform high complexity testing. A Specimen InformationSpecimen Source: ThroatSpecimen Site: Not otherwise specified Lab Interpretation (test code = 16550-6) [facility] uoeormg3348[facility] 16:11:39* Test Item Value Reference Range Interpretation Comments Urine culture isolate (test code = 89355-2) Mixed susan <=10-3 col/ cc Specimen InformationSpecimen Source: UrineSpecimen Site: Clean catch [facility] CenterG[facility] bfwks7967-63-94 16:11:39Gram stain resultRare WBC'sOccasional Gram variable rods Comment: Specimen InformationSpecimen Source: UrineSpecimen Site: Clean catch [facility] metabolic eedak1046-48-71 16:02:27* Test Item Value Reference Range Interpretation Comments Sodium (test code = 2951-2) 134 135- 148 mEq/L L Potassium (test code = 2823-3) 3.7 3.5- 5.0 mEq/L Chloride (test code = 2075-0) 99 98- 112 mEq/L CO2 (test code = 2027-9) 22 24- 31 mEq/L L Anion gap (test code = 62172-1) 13@ANIO 7- 15 mEq/L BUN (test code = 3094-0) 4 mg/dL 6-20 L Creatinine (test code = 2160-0) 0.62 mg/dL 0.5-0.9 Glucose (test code = 2345-7) 96 mg/dL 65-99 Calcium (test code = 67257-0) 8.6 mg/dL 8.3-10.2 Protein (test code = 2885-2) 6.8 g/dL 6.3-8.3 4.6-7.0 g/dL1 week 4.4-7.6 g/dL7 months-1year 5.1-7.3 g/dL1-2 years 5.6-7.5 g/dL>3 years 6.0-8.0 g/aB68-413 6.3-8.3 g/dL Albumin (test code = 1751-7) 3.4 g/dL 3.5-5 L A/G ratio (test code = 1759-0) 1.0 0.7-3.8 Alkaline phosphatase (test code = 6768-6) 90 U/L 35-104 AST (test code = 1920-8) 43 U/L 10-35 H ALT (test code = 1742-6) 41 U/L 5-50 Total bilirubin (test code = 1975-2) <0.2 0-1.2 Lab Interpretation (test code = 21697-2) Abnormal [place] MethodistEstimated [id number] 16:02:27* Test Item Value Reference Range Interpretation Comments Estimated GFR (test code = 5488) >=90 mL/min/1.73 m2 Catergory Units InterpretationG1 >=90 Normal or highG2 60-89 Mildly pasvgfvjhY5o 45-59 Mildly to moderately qwwvznxgtP4m 30-44 Moderately to severely decreasedG4 15-29 Severely decreasedG5 <15 Kidney failureThe eGFR was calculated using the Chronic Kidney Disease Epidemiology Collaboration (CKD-EPI) equation. Interpretation is based on recommendations of the National Kidney Foundation-Kidney Disease Outcomes Quality Initiative (NKF-KDOQI) published in 2014. [place] MethodistRespiratory pathogen oedit5844-45-09 15:13:07Respiratory pathogen panelNegative for all pathogens tested:Negative for AdenovirusNegative for Coronavirus FOZ8Lnyrznzu for Coronavirus WR10Txugwiur for Coronavirus 229ENegative for Coronavirus VC28Cjybsvrm for Human MetapneumovirusNegative for Rhinovirus/EnterovirusNegative for Influenza ANegative for Influenza A/H1N egative for Influenza A/U9Hdxuibos for Influenza A/H1-2009Negative for Influenza BNegative for Parainfluenza Virus 1Negative for Parainfluenza Virus 2Negative f or Parainfluenza Virus 3Negative for Parainfluenza Virus 4Negative for Respirato ry Syncytial VirusNegative for Bordetella pertussisNegative for Chlamydophila pn eumoniaeNegative for Mycoplasma pneumoniaeThis real-time PCR assay detects the p resence of nucleic acids (RNA or DNA) for the respiratory pathogens listed. A r esult of "Not-detected" does not exclude the possibility of the presence of one or more pathogens at concentrations less than the detectable limits of the assay . Comment: Specimen InformationSpecimen Source: NaresSpecimen Site: [facility] Methodist[facility] Chest 2 [id number] 14:15:56Hm Interface, Radiology Results 11/22/2018 2:19 PM CDTEXAMINATION: XR CHEST 2 VWCLINICAL HISTORY: wheezing cough feverXR CHEST 2 VW images are submittedCOMPARISON: NONEFINDINGS:The cardiac silhouette is normal in size. The pulmonary vasculature is within normal limits. The lung zones are clear. There is no pleural effusion or pneumothorax.IMPRESSION:1. There is no acute cardiopul monary disease.[id number]-[id number] Regional Medical Center with platelet and htxqzqxlffyt2219-16-52 13:51:55* Test Item Value Reference Range Interpretation Comments WBC (test code = 02540-2) 4.40 4.50- 11.00 k/uL L RBC (test code = 18644-2) 4.15 m/uL 4.2-5.5 L HGB (test code = 718-7) 12.7 g/dL 12-16 HCT (test code = 4544-3) 40.6 % 37-47 MCV (test code = 787-2) 97.8 fL 82-100 MCH (test code = 785-6) 30.6 pg 27-34 MCHC (test code = 786-4) 31.3 g/dL 31-37 RDW - SD (test code = 01025-6) 50.6 fL 37-55 MPV (test code = 51020-2) 10.2 fL 8.8-13.2 Platelet count (test code = 21484-4) 152 150- 400 k/uL Nucleated RBC (test code = 20664-9) 0.00 /100 WBC Neutrophils (test code = 56249-5) 64.0 % 39-69 Lymphocytes (test code = 12494-7) 26.0 % 25-45 Monocytes (test code = 59905-1) 5.0 % 0-10 Eosinophils (test code = 48921-5) 3.0 % 0-5 Basophils (test code = 06445-6) 1.0 % 0-1 Lab Interpretation (test code = 03092-1) Abnormal [place] MethodistManual mmffwzxralue9524-58-04 13:51:55* Test Item Value Reference Range Interpretation Comments Manual differential (test code = 90523-1) PERFORMED Neutrophils (test code = 23617-4) 64.0 % 39-69 Lymphocytes (test code = 49542-3) 26.0 % 25-45 Monocytes (test code = 60006-2) 5.0 % 0-10 Eosinophils (test code = 86815-5) 3.0 % 0-5 Basophils (test code = 71984-7) 1.0 % 0-1 Metamyelocytes (test code = 740-1) 1 % Promyelocytes (test code = 783-1) 0 % Platelet slide review (test code = 95803-7) Cole adequate Anisocytosis (test code = 702-1) Moderate Ovalocytes (test code = 774-0) Moderate [place] MethodistInfluenza antigen test, reflex negative to [id number] 13:25:44* Test Item Value Reference Range Interpretation Comments Influenza antigen (test code = 64956-6) Negative for Influenza A/B antigen. A Specimen InformationSpecimen Source: NaresSpecimen Site: Left Lab Interpretation (test code = 91278-0) Abnormal [place] MethodistUrinalysis screen and microscopy, with reflex to culture 2018-11-22 13:23:39* Test Item Value Reference Range Interpretation Comments Specimen site (test code = 4059365) Clean catch Color, UA (test code = 5778-6) Straw Appearance, UA (test code = 5767-9) Clear Specific gravity, UA (test code = 5811-5) 1.009 1.001-1.035 pH, UA (test code = 5803-2) 6.0 5.0-8.5 Protein, UA (test code = 92512-7) Negative Negative Glucose, UA (test code = 39323-2) Negative Negative Ketones, UA (test code = 2514-8) Negative Negative Bilirubin, UA (test code = 5770-3) Negative Negative Blood, UA (test code = 5794-3) Large Negative A Nitrite, UA (test code = 5802-4) Negative Negative Urobilinogen, UA (test code = 68669-0) <2.0 <2.0 Leukocyte esterase, UA (test code = 5799-2) Trace Negative A Epithelial cells, UA (test code = 5787-7) 2 /HPF WBC, UA (test code = 5821-4) 2 0- 4 /HPF RBC, UA (test code = 36665-5) 25 0- 5 /HPF H Bacteria, UA (test code = 95556-3) None seen None seen Yeast, UA (test code = 89158-4) None seen Yeast with pseudohyphae, UA (test code = 24816-0) None seen Lab Interpretation (test code = 42036-3) Abnormal [place] MethodistGroup A strep, rapid qvktezc6240-10-35 13:15:05* Test Item Value Reference Range Interpretation Comments Group A strep, rapid antigen result (test code = 16191 79) Negative for Group A Streptococcus antigen. Specimen Informat ionSpecimen Source: ThroatSpecimen Site: Not otherwise specified [place] PukujvvtiYLKNLJNRLM8808-04-67 09:11:16313Dhrgzoby HermannTOXICOLOGY 2018-10-18 09:11:000.377[facility] HermannCHEM XVQIN2142-68-74 06:40:0072[facility] HermannCHEM OJAWQ6428-86-97 06:40:005[facility] HermannCHEM IIKXI8943-11-38 06:40:000.67[facility] HermannCHEM BZRZS3447-46-45 06:40:36772Fdiwlhls HermannCHEM JXFPP5266-56-20 06:40:003.3[facility] HermannCHEM HKMLB8241-24-63 06:40:55290 [facility] HermannCHEM RMRHW4424-62-45 06:40:0026[facility] HermannCHEM PANEL 2018-10-18 06:40:008.4[facility] HermannCHEM NWYVX9657-42-80 06:40:49493Edjizpza HermannCHEM ONZCE1751-67-19 06:40:0013.3[facility] PyzxdciOXPBMYJCXSBZJ6500-96-35 06:40:00Negative *NA*(10/18/18 1:40 AM)[facility] DyazaafEDYXZVFFUJ2297-00-98 06:40:004.2[facility] DwsqoqjOSFLPEZGZF2377-08-24 06:40:004.38[facility] VEUKYXZKUG3627-48-12 06:40:0014.0[facility] MgakbseCNSQBPVZFE6004-84-16 06:40:00 42.1[facility] HkmhwvwQTSRPVOTRU3006-75-22 06:40:0096.0[facility] HermannHEMATOLOGY 2018-10-18 06:40:00* Test Item Value Reference Range Interpretation Comments MCH (test code = MCH) 32.0 pg 27.0-31.0 [facility] HtjpcpnCWCVIFALGB4068-01-51 06:40:0033.4[facility] HermannHEMATOLOGY 2018-10-18 06:40:0015.6[facility] VeyfprrJMIRMZBUFK0960-76-57 06:40:35714Lpaeorfy XrqrpnaIZFNYWCOML7023-59-76 06:40:007.8[facility] UdnugzuPIBJTPFTSD4834-37-12 06:40:0040.6[facility] MmnchdySAKTOAJXSZ4935-76-53 06:40:0044.7[facility] Andry PXGKAOOJDD1291-04-12 06:40:0012.4[facility] VrcfzvoVJHAKDWCMT1463-61-27 06:40:00 1.3[facility] JmqzrvhZRRVNMTKWM9326-06-84 06:40:001.0[facility] HermannHEMATOLOGY 2018-10-18 06:40:001.7[facility] RjlatxnMBHYFJRWQO5945-67-25 06:40:001.9[facility] XloocbqLIKZQCLCXG6058-49-52 06:40:000.5[facility] QpcsjpuXOCGJUWRBR2446-12-78 06:40:000.1[facility] HermannURINE AND MMYHH3052-10-38 04:27:00<1[facility] URINE AND FCQOA1891-70-38 04:27:00<1[facility] HermannURINE AND QTWVZ4451-78-65 04:27:00Negative *NA*(09/24/18 11:27 PM)[facility]annURINE AND BAUJD7955-82-03 04:27:00Negative (09/24/18 11:27 PM)[facility]annURINE AND KEBIV0561-88-45 04:27:00Negative (09/24/18 11:27 PM)[facility]annURINE AND GJHHS5192-60-80 04:27:00Negative (09/24/18 11:27 PM)[facility]annURINE AND KQGVZ9597-54-88 04:27:00* Test Item Value Reference Range Interpretation Comments UA pH (test code = UA pH) 6.0 1 5.0-8.0 [facility]annURINE AND EAJUS4034-85-33 04:27:00* Test Item Value Reference Range Interpretation Comments UA Spec Grav (test code = UA Spec Grav) 1.003 1 [facility]annURINE AND OVSYD6822-05-71 04:27:00Clear (09/24/18 11:27 PM) [facility]annURINE IAZN7045-99-18 04:27:00Negative (09/24/18 11:27 PM)[facility] UfzjzhcPDDPJYYWBEAS3437-33-72 04:15:0012.2[facility] IwcrrfsNGMOXRCOVFAS5601-72-36 04:15:00* Test Item Value Reference Range Interpretation Comments B/C Ratio (test code = B/C Ratio) 7 1 6-25 [facility] QzryxrzKAMHZKTDAPNC4705-12-24 04:15:00* Test Item Value Reference Range Interpretation Comments A/G Ratio (test code = A/G Ratio) 1.1 1 0.7-1.6 [facility] ScuoqslNKTKASNXTRUO2291-37-87 04:15:003.8[facility] HermannELECTROLYTES 2018-09-25 04:15:69361Rwnzwlby DegkkvvAXLPMFMNBBBM8538-96-45 04:15:16311Tyxngado FooynrrCNFZEFQBLSHD1364-05-21 04:15:000.2[facility] ZehupeuOFQTNITGOBHR0856-37-14 04:15:43404Tggdxlaj OcxthxdXYONXTYFWIXF9011-27-98 04:15:78120Bwhdtrlj [facility]ir ASYDNYWAAJCC5881-53-79 04:15:008.7[facility] BvngzapRDZZDHPMFZQF2742-60-06 04:15:0025[facility] RrfyonoTFCRWNYOELNN7407-18-64 04:15:0098[facility] OARLQPMLADNW5500-51-46 04:15:004.0[facility] BubicmaOSJBOHWIPOTT9282-16-09 04:15:007.8[facility] PkdpjwhPMFFDYSCNBZO1303-95-81 04:15:004[facility] ZCGMMOANWVGX2890-89-09 04:15:004.2[facility] PhkhjhnQOXISXMZODIQ5365-36-01 04:15:61844Ksatnsgb JeimulaYOPBEREUGQSG9310-16-30 04:15:000.59[facility] ZWVBVGYZXNOZ7195-21-21 04:15:0077[facility] SavtxpgXSFSEBDDCS2366-54-65 04:15:00 2.2[facility] CnfmapfRYAQZTXSXK3076-93-69 04:15:000.4[facility] HermannHEMATOLOGY 2018-09-25 04:15:000.2[facility] TneulieKVYPXWURHR4900-47-82 04:15:009.2[facility] VxoqyziWKKAZSNPMY2985-43-96 04:15:001.8[facility] ImexdokDCYFXOOSOK0870-58-07 04:15:0047.8[facility] BukdvihBOKOSCKXQK4330-01-85 04:15:0041.0[facility] Andry QHHMJEZMQU7840-40-73 04:15:000.1[facility] SsqaonjYCLVNNGNAV4703-94-51 04:15:001.9 [facility] PohmbbdZFVRABIUEZ8283-13-54 04:15:007.6[facility] HermannHEMATOLOGY 2018-09-25 04:15:0033.6[facility] WzbkbpfUDWBFWSUAS1049-74-37 04:15:00* Test Item Value Reference Range Interpretation Comments MCH (test code = MCH) 31.8 pg 27.0-31.0 [facility] XgigoqxMQLPOMWWWT6385-01-83 04:15:0043.5[facility] HermannHEMATOLOGY 2018-09-25 04:15:0014.6[facility] MpiyqvsFNDZFCIOKH3497-64-62 04:15:0094.6[facility] CulbiuaELXKIPTBKV9460-82-12 04:15:0015.1[facility] IlhdiqzZERHDINHPU4177-91-23 04:15:35563Dchugxwm CdxxylhTIDQNDZXET9232-04-88 04:15:004.6[facility] KMKTZKHXHZ6632-85-83 04:15:004.60[facility] HermannCT Abdomen and Pelvis w/o Ewklsnub5110-50-27 17:25:19Patient: MANDY ASCENCIO Date/Time09/14/2018 17:17 CDTReason for ExamAbdominal painReportCT Abdomen and Pelvis w/o ContrastHISTORY: Abdominal painCOMPARISON: None.TECHNIQUE: Axial images of the abdomen and pelvis were obtained without intravenous or oral contrast. Coronal and sagittal reformats were provided. One or more of the following dose reduction techniques were used: Automated exposure control, adjustment of the mA and/or kV according to patient size, and/or utilization of iterative reconstruction technique.FINDINGS:Lower thorax: Unremarkable.Hepatobiliary: There is diffuse low-attenuation of the liver compatible with hepatic steatosis. The right hepatic lobe measures 14 cm in span, normal. No intra or extrahepatic biliary ductal dilatation is identified.Gallbladder: The gallbladder appears contracted .Spleen: No splenomegaly.Pancreas: Unremarkable.Adrenals: Unremarkable.Kidney s/ureters: No hydronephrosis or nephrolithiasis is identified.Bowel: No abnorma l bowel wall thickening or evidence of obstruction. The appendix is normal.Pelvi c organs/bladder: The urinary bladder wall is mildly thickened. The uterus and adnexa are unremarkable.Vessels: Unremarkable.Lymph nodes: No lymphadenopathy.P eritoneum/Retroperitoneum: Trace pelvic ascites is noted.Bones/soft tissues: No aggressive osseous lesion is seen.IMPRESSION:1. Hepatic steatosis.2. Mild thic kening of the urinary bladder wall. Correlate for UTI.3. Small amount of fluid is noted in the pelvis. This may be physiologic. If pelvic pain is present, u ltrasound follow-up can be obtained.Exam Date/Time09/14/2018 17:17 CDTReportLOCAT ION: R16 Final Dictated by: MD Lewis Adam FDictated DT/TM: 09/04 5:19 pmSigned by: MD Lewis Adam FSigned (Electronic Signature): 01/2019 5:25 pmLipid Qqttj2886-46-47 03:57:40* Test Item Value Reference Range Interpretation Comments Cholesterol Total (test code = Cholesterol Total) 190 mg/dL 0-20 0 RISK OF HEART DISEASEPublished by [place] [employer] Analyte Optimal Borderline Increased RiskCHOL <200 200-239 >240TRIG <150 150-199 >200HDL Male >60 <40HDL Female >60 <50LDL <100 130-159 >160LDL Near optimal is 100-129 Triglycerides (test code = Triglycerides) 90 mg/dL 9-200 HDL (test code = HDL) 116 mg/dL 50-60 H LDL (test code = LDL) 56 mg/dL 0-130 The eq uation being used in this calculation is LDL = (Chol - HDL) - (Trig / 5) VLDL (test code = VLDL) 18 mg/dL 5-40 The equation being used in this calculation is VLDL = Trig / 5 Chol/HDL (test code = Chol/HDL) 1.6 ratio 0.0-4.4 LDL/HDL Ratio (test code = LDL/HDL Ratio) 0 N The equation being used in this calculation is LDL/HDL Ratio=LDL Calc/HDL Chol Thyroid Stimulating Lnnlpwe7214-83-39 03:57:40* Test Item Value Reference Range Interpretation Comments TSH (test code = TSH) 0.611 mIU/mL 0.270-4.200 RPR Jbwaxfzdqtq2791-00-76 03:40:29* Test Item Value Reference Range Interpretation Comments RPR Qual (test code = RPR Qual) Non-Reactive Non-Reactive Reactive Control (test code = Reactive Control) Reactive Weak Reactive Control (test code = Weak Reactive Control) Weak Reac tive Non-Reactive Control (test code = Non-Reactive Control) Non-Reactiv e Lot # (test code = Lot #) [id number] N Expiration Dt (test code = Expiration Dt) 01-05-20 N Alcohol Sluav4060-25-14 05:54:38* Test Item Value Reference Range Interpretation Comments Ethanol Level (test code = Ethanol Level) 0.14 g/dL 0.00-0.01 H Intoxicated 0.080 g/dL or more Ethanol Inst (test code = Ethanol Inst) 145 N Comprehensive Metabolic Nrzwe4450-26-49 22:36:43* Test Item Value Reference Range Interpretation Comments Sodium Level (test code = Sodium Level) 145.0 mmol/L 135.0-145.0 Potassium Level (test code = Potassium Level) 4.1 mmol/L 3.5-5.1 Chloride Level (test code = Chloride Level) 104 mmol/L 98-105 CO2 (test code = CO2) 27 mmol/L 22-29 Anion Gap (test code = Anion Gap) 14 mmol/L 7-16 BUN (test code = BUN) 4.00 mg/dL 6.00-20.00 L Creatinine Level (test code = Creatinine Level) 0.70 mg/dL 0.50-0 .90 BUN/Creat Ratio (test code = BUN/Creat Ratio) 6 N Glucose Level (test code = Glucose Level) 86 mg/dL 70-115 Calcium Level (test code = Calcium Level) 8.9 mg/dL 8.3-10.5 Alk Phos (test code = Alk Phos) 172 U/L 35-104 H Bilirubin Total (test code = Bilirubin Total) 0.3 mg/dL 0.1-0.9 Albumin Level (test code = Albumin Level) 4.5 g/dL 3.5-5.2 Protein Total (test code = Protein Total) 7.3 g/dL 6.4-8.3 ALT (test code = ALT) 95 U/L 1-33 H AST (test code = AST) 148 U/L 1-32 H Globulin (test code = Globulin) 2.8 g/dL 2.9-3.1 L A/G Ratio (test code = A/G Ratio) 1.6 ratio N Comprehensive Metabolic Rvqhy4835-75-01 22:36:43* Test Item Value Reference Range Interpretation Comments Sodium Level (test code = Sodium Level) 145.0 mmol/L 135.0-145.0 Potassium Level (test code = Potassium Level) 4.1 mmol/L 3.5-5.1 Chloride Level (test code = Chloride Level) 104 mmol/L 98-105 CO2 (test code = CO2) 27 mmol/L 22-29 Anion Gap (test code = Anion Gap) 14 mmol/L 7-16 BUN (test code = BUN) 4.00 mg/dL 6.00-20.00 L Creatinine Level (test code = Creatinine Level) 0.70 mg/dL 0.50-0 .90 BUN/Creat Ratio (test code = BUN/Creat Ratio) 6 N Glucose Level (test code = Glucose Level) 86 mg/dL 70-115 Calcium Level (test code = Calcium Level) 8.9 mg/dL 8.3-10.5 Alk Phos (test code = Alk Phos) 172 U/L 35-104 H Bilirubin Total (test code = Bilirubin Total) 0.3 mg/dL 0.1-0.9 Albumin Level (test code = Albumin Level) 4.5 g/dL 3.5-5.2 Protein Total (test code = Protein Total) 7.3 g/dL 6.4-8.3 ALT (test code = ALT) 95 U/L 1-33 H AST (test code = AST) 148 U/L 1-32 H Globulin (test code = Globulin) 2.8 g/dL 2.9-3.1 L A/G Ratio (test code = A/G Ratio) 1.6 ratio N eGFR AA (test code = eGFR AA) >60 mL/min/1.73 m2 N eGFR (estimated Glomerular Filtration Rate) is an estimated value, calculated from the patient's serum creatinine using the MDRD equation. It is NOT the patient's actual GFR. The eGFR provides a more clinically useful measure of kidney disease than serum creatinine alone.This calculation takes sex and race into account, if the information is provided. If the race is not provided, and the patient is -[place], multiply by 1.212. If sex is not provided, and the patient is female, multiply by 0.742. Results for patients <18 years of age have not been validated by the MDRD study and should be interpreted with caution. eGFR Result Interpretation:eGFR > or = 60 is in the Normal RangeeGFR < 60 may mean kidney diseaseeGFR < 15 may mean kidney failure Ranges recommended by the National Kidney Foundation, http://nkdep.nih.gov Alcohol Rmmxe7137-89-47 22:36:43* Test Item Value Reference Range Interpretation Comments Ethanol Level (test code = Ethanol Level) 0.38 g/dL 0.00-0.01 Verified by repeat analysis.Critical results called to susie austin at 09/11/2018 22:36:33 CDT by og. Read back and verified? yesIntoxicated 0.080 g/dL or more Ethanol Inst (test code = Ethanol Inst) 379 N Comprehensive Metabolic Kxpqj2564-99-19 22:36:43* Test Item Value Reference Range Interpretation Comments Sodium Level (test code = Sodium Level) 145.0 mmol/L 135.0-145.0 Potassium Level (test code = Potassium Level) 4.1 mmol/L 3.5-5.1 Chloride Level (test code = Chloride Level) 104 mmol/L 98-105 CO2 (test code = CO2) 27 mmol/L 22-29 Anion Gap (test code = Anion Gap) 14 mmol/L 7-16 BUN (test code = BUN) 4.00 mg/dL 6.00-20.00 L Creatinine Level (test code = Creatinine Level) 0.70 mg/dL 0.50-0 .90 BUN/Creat Ratio (test code = BUN/Creat Ratio) 6 N Glucose Level (test code = Glucose Level) 86 mg/dL 70-115 Calcium Level (test code = Calcium Level) 8.9 mg/dL 8.3-10.5 Alk Phos (test code = Alk Phos) 172 U/L 35-104 H Bilirubin Total (test code = Bilirubin Total) 0.3 mg/dL 0.1-0.9 Albumin Level (test code = Albumin Level) 4.5 g/dL 3.5-5.2 Protein Total (test code = Protein Total) 7.3 g/dL 6.4-8.3 ALT (test code = ALT) 95 U/L 1-33 H AST (test code = AST) 148 U/L 1-32 H Globulin (test code = Globulin) 2.8 g/dL 2.9-3.1 L A/G Ratio (test code = A/G Ratio) 1.6 ratio N eGFR AA (test code = eGFR AA) >60 mL/min/1.73 m2 N eGFR (estimated Glomerular Filtration Rate) is an estimated value, calculated from the patient's serum creatinine using the MDRD equation. It is NOT the patient's actual GFR. The eGFR provides a more clinically useful measure of kidney disease than serum creatinine alone.This calculation takes sex and race into account, if the information is provided. If the race is not provided, and the patient is -[place], multiply by 1.212. If sex is not provided, and the patient is female, multiply by 0.742. Results for patients <18 years of age have not been validated by the MDRD study and should be interpreted with caution. eGFR Result Interpretation:eGFR > or = 60 is in the Normal RangeeGFR < 60 may mean kidney diseaseeGFR < 15 may mean kidney failure Ranges recommended by the National Kidney Foundation, http://nkdep.nih.gov eGFR Non-AA (test code = eGFR Non-AA) >60.00 mL/min/1.73 m2 N eGFR (estimated Glomerular Filtration Rate) is an estimated value, calculated from the patient's serum creatinine using the MDRD equation. It is NOT the patient's actual GFR. The eGFR provides a more clinically useful measure of kidney disease than serum creatinine alone.This calculation takes sex and race into account, if the information is provided. If the race is not provided, and the patient is -[place], multiply by 1.212. If sex is not provided, and the patient is female, multiply by 0.742. Results for patients <18 years of age have not been validated by the MDRD study and should be interpreted with caution. eGFR Result Interpretation:eGFR > or = 60 is in the Normal RangeeGFR < 60 may mean kidney diseaseeGFR < 15 may mean kidney failure Ranges recommended by the National Kidney Foundation, http://nkdep.nih.gov Drugs of Abuse Urine 35941-29-84 22:21:12* Test Item Value Reference Range Interpretation Comments Amphetamine Screen Ur (test code = Amphetamine Screen Ur) Negative Negative For diagnostic purposes only. Positive results should always be assessed in conjunction with a patient's medical history. Barbiturate Screen Ur (test code = Barbiturate Screen Ur) Negative Negative Benzodiazepines Ur (test code = Benzodiazepines Ur) POSITIVE Ne gative A Cocaine Screen Ur (test code = Cocaine Screen Ur) Negative Nega tive U Methadone (test code = U Methadone) Negative Negative Opiate Screen Ur (test code = Opiate Screen Ur) Negative Negati ve U PCP Scrn (test code = U PCP Scrn) Negative Negative U Propoxyphene (test code = U Propoxyphene) Negative Negative Cannabinoid Screen Ur (test code = Cannabinoid Screen Ur) Negative Negative Urinalysis with Microscopic if [id number] 22:18:12* Test Item Value Reference Range Interpretation Comments UA Color (test code = UA Color) STRAW Yellow UA Appear (test code = UA Appear) CLEAR Clear UA pH (test code = UA pH) 5 N UA Spec Grav (test code = UA Spec Grav) 1.004 1.001-1.035 UA Glucose (test code = UA Glucose) NEG Negative UA Ketones (test code = UA Ketones) NEG Negative UA Blood (test code = UA Blood) NEG Negative UA Protein (test code = UA Protein) NEG Negative UA Bili (test code = UA Bili) NEG Negative UA Urobilinogen (test code = UA Urobilinogen) 0.2 mg/dL N UA Nitrite (test code = UA Nitrite) NEG Negative UA Leuk Est (test code = UA Leuk Est) NEG Negative UA Micro Ind? (test code = UA Micro Ind?) Not Indicated Not Indicat ed Result created by rule [id number]_SJM_UA_MICRO_IND HCG Qualitative [id number] 22:17:09* Test Item Value Reference Range Interpretation Comments hCG Ur (test code = hCG Ur) Negative If the result is "Negative" in patients suspected to be , recommend retest with a sample obtained 48 to 72 hours later, or by ordering a quantitative assay. If the result is "Borderline" chelsi ting should be repeated in 48 to 72 hours. Lot # (test code = Lot #) [id number] N Expiration Dt (test code = Expiration Dt) 2019-12-05 N Neg Control (test code = Neg Control) Negative Pos Control (test code = Pos Control) Positive Internal QC (test code = Internal QC) Acceptable IG [id number] 22:10:55* Test Item Value Reference Range Interpretation Comments IG (test code = IG) 0.3 % 0.0-5.0 IG Abs (test code = IG Abs) 0 x10 N Complete Blood Count with Fbiwylnxrqdq0483-44-67 22:10:54* Test Item Value Reference Range Interpretation Comments WBC (test code = WBC) 3.8 x10 4.4-10.5 L RBC (test code = RBC) 4.77 x10 3.75-5.20 Hgb (test code = Hgb) 14.7 g/dL 12.2-14.8 MCV (test code = MCV) 93.90 fL 80.00-100.00 Hct (test code = Hct) 44.8 % 36.5-44.4 H MCHC (test code = MCHC) 32.80 g/dL 32.00-37.50 RDW CV (test code = RDW CV) 13.8 % 11.5-14.5 MCH (test code = MCH) 30.8 pg 27.0-32.5 Platelets (test code = Platelets) 146.0 x10 140.0-440.0 MPV (test code = MPV) 9.7 fL N Slide Review (test code = Slide Review) Auto Auto Result created by GL_SJM_SLIDE_REV_[email or web address] nRBC (test code = nRBC) 0 N NRBC Abs (test code = NRBC Abs) 0.00 x10 N IPF (test code = IPF) 0 % N Automated [id number] 22:10:54* Test Item Value Reference Range Interpretation Comments Neutro Auto (test code = Neutro Auto) 42.2 % 36.0-70.0 Lymph Auto (test code = Lymph Auto) 48.4 % 12.0-44.0 H [place] Auto (test code = [place] Auto) 7.3 % 0.0-11.0 Eos, Auto (test code = Eos, Auto) 0.8 % 0.0-7.0 Basophil Auto (test code = Basophil Auto) 1.0 % 0.0-2.0 Neutro Absolute (test code = Neutro Absolute) 1.6 x10 1.6-7.4 Lymph Absolute (test code = Lymph Absolute) 1.86 x10 .50-4.60 [place] Absolute (test code = [place] Absolute) .28 x10 .00-1.20 Eos Absolute (test code = Eos Absolute) 0.03 x10 0.00-0.74 Baso Absolute (test code = Baso Absolute) 0.04 x10 0.00-0.21 CT Spine Cervical w/o Hwemakwx1743-55-17 22:00:14Patient: MANDY ASCENCIO Date/Time09/11/2018 21:42 CDTReason for ExamTraumaReportFacial Examination: CT of the cervical spine without contrastLocation code: W78Tvgkeejgvq: NoneTechnique:Thin section axial contiguous images were obtained through the cervical spine followed by coronal and sagittal reformations. One or more of the following dose reduction techniques were used: Automated exposure control, adjustment of the mA and/or kV according to patient size, and/or utilization of iterative reconstruction technique.Discussion:Clinical history is remarkable for trauma. Thin section axial images through the spine demonstrate the cortices to be intact. There is no evidence to suggest the presence of fracture. The reformations demonstrate appropriate alignment. Prevertebral soft tissues are grossly within normal limi ts.C2-C3:NormalC3-C4:NormalC4-C5:NormalC5-C6:NormalC6-C7:NormalC7-T1:NormalImpre ssion:Negative cervical spine CT. Final Dictated by: MD Beck J ames EDictated DT/TM: 09/11/2018 9:58 pmSigned by: MD Beck James ESigned ( Electronic Signature): 09/11/2018 10:00 pmCT Brain/Head w/o Cxpjnrkr2878-17-07 21:57:59Patient: MANDY ASCENCIO Date/Time09/11/2018 21:42 CDTReason for ExamTraumaReportExamination: Head CT without contrastLocation code: Y77Bqbpqcckhc: NoneTechnique:Axial contiguous images through the brain were obtained without contrast media. Coronal and sagittal reformations were obtained. One or more of the following dose reduction techniques were used: Automated exposure control, adjustment of the mA and/or kV according to patient size, and/or utilization of iterative reconstruction technique.Dis cussion:Clinical history is remarkable for trauma. There is no evidence of hydr ocephalus, midline shift, extra-axial fluid collection, hemorrhage, acute infarc tion, or space-occupying mass lesion. The pitts-white matter differentiation is p reserved.The calvarium and the paranasal sinuses are within normal limits.Impres saturnino:1. No acute intracranial abnormality. Final Dictated by: Ale jo MD, James EDictated DT/TM: 09/11/2018 9:56 pmSigned by: MD Beck James ESigned (Electronic Signature): 09/11/2018 9:57 pmCHEM HSJLK2408-48-14 07:42:00 120[facility] XZJGS2213-20-83 07:42:0030[facility]annCHE[facility] PANEL 2018-09-09 07:42:35838Jqhmqqrt HermannCHEM LPPGG0446-41-72 07:42:003.7[facility]annCHEM SJUZA5270-57-31 07:42:008.3[facility]annCHEM HAHUJ6571-44-46 07:42:52439Orbaehob HermannCHEM PSTAB7854-18-43 07:42:000.64[facility]annCHEM FMXYP8341-92-76 07:42:003[facility]annCHEM BNJLW1872-98-36 07:42:0077[facility]annCHE[facility] RTJXV8185-52-92 07:42:008.7[facility]annDR[facility] WLNKNF8839-02-34 07:42:00Negative *NA*(09/09/18 2:42 AM)[facility] OOOYCM5795-35-51 07:42:00See Note (09/09/18 2:42 AM)[facility] SZCXJP2352-92-95 07:42:00 Negative *NA*(09/09/18 2:42 AM)[facility] NFOKZG2608-35-58 07:42:00 Negative *NA*(09/09/18 2:42 AM)[facility] YUZVFC1052-27-54 07:42:00 Negative *NA*(09/09/18 2:42 AM)[facility] CWHGTR3159-54-34 07:42:00 Negative *NA*(09/09/18 2:42 AM)[facility] AUIXKA5402-95-08 07:42:00 Negative *NA*(09/09/18 2:42 AM)[facility] RVFHGP3590-95-88 07:42:00 Positive *ABN*(09/09/18 2:42 AM)[facility] UtskjnyTIINBSZGHIXOC6179-43-57 07:42:00 Negative *NA*(09/09/18 2:42 AM)[facility] SsnnehrRIQSKMMRCK3363-47-73 07:42:0011.7 [facility] UgnwlycNLGTEYQZXR5316-67-45 07:42:0058.0[facility]annHEMATOLOGY 2018-09-09 07:42:001.3[facility] SnyknmoLRUQCVNDXP6758-72-01 07:42:002.1[facility] FdbdarpSCWIAPROZY8785-20-24 07:42:002.1[facility] SyyghurGIQRUIQTZJ6509-13-13 07:42:000.1[facility] ZjjzubnCZXQVHTKFA3697-85-11 07:42:000.4[facility] YJWLEFMVPO2934-25-09 07:42:0026.9[facility] RdigyufVBBCUENJAD3851-15-76 07:42:00 1.0[facility] NtficdaMIUWNGWRDY8147-85-66 07:42:007.8[facility]annHEMATOLOGY 2018-09-09 07:42:37802Zxvtpmpf GyjojdoYUMXJPVNLG0467-72-73 07:42:0014.8[facility] QgshudfJCNMFAIJDG5948-32-68 07:42:0094.8[facility] LndckhxEJYCOGCEJF5588-50-37 07:42:00* Test Item Value Reference Range Interpretation Comments MCH (test code = MCH) 31.4 pg 27.0-31.0 [facility] VkieeynQZOPEUNJNV6686-52-79 07:42:0033.1[facility]annHEMATOLOGY 2018-09-09 07:42:0014.5[facility] BehbexnVWOJRXIHZG6997-73-75 07:42:0043.8[facility] VsyytwuELBWRGBFTB7612-51-35 07:42:004.62[facility] QuqczaaULXYDUISPJ5150-34-81 07:42:003.7[facility] DmkgsqmZAZMMSRIVC6033-57-82 07:42:53911Itgoukyw [facility] UWFTCGGRIC2886-20-32 07:42:000.345[facility] DHYXS5397-35-57 07:42:00Negative *NA*(09/09/18 2:42 AM)[facility] BLOMI8178-26-75 07:42:00Negative (09/09/18 2:42 AM)[facility] EKOGQ3695-00-42 07:42:00Negative (09/09/18 2:42 AM)[facility] VNOGQ9248-07-21 07:42:00Negative (09/09/18 2:42 AM)[facility] BPBGV7664-81-63 07:42:001[facility] TZBCO9586-71-62 07:42:00<1[facility] AND VVBKO5035-65-84 07:42:00Clear (09/09/18 2:42 AM)[facility] GNTXO2564-38-64 07:42:00* Test Item Value Reference Range Interpretation Comments UA Spec Grav (test code = UA Spec Grav) 1.004 1 [facility] BAHMN1989-56-25 07:42:00* Test Item Value Reference Range Interpretation Comments UA pH (test code = UA pH) 6.0 1 5.0-8.0 [facility] BSEMWA8598-32-57 00:55:00Positive *ABN*(08/23/18 7:55 PM) [facility] QIHFUJ7066-45-25 00:55:00Negative *NA*(08/23/18 7:55 PM) [facility] ZXRUXS0900-71-31 00:55:00Negative *NA*(08/23/18 7:55 PM) [facility] JQJGTX3004-65-77 00:55:00See Note (08/23/18 7:55 PM)[facility] WEOMHD3870-98-35 00:55:00Negative *NA*(08/23/18 7:55 PM)[facility] QEDOAL5412-86-50 00:55:00Negative *NA*(08/23/18 7:55 PM)[facility] NSZLSP1288-52-65 00:55:00Negative *NA*(08/23/18 7:55 PM)[facility] JYBFAU6169-25-20 00:55:00Negative *NA*(08/23/18 7:55 PM)[facility] GZPRB7741-99-61 00:55:001[facility] STOOL 2018-08-24 00:55:00<1[facility] HRLRV8152-15-22 00:55:00Negative (08/23/18 7:55 PM)[facility] QSYBR7877-08-42 00:55:00Negative (08/23/18 7:55 PM)[facility] JJLPU8093-00-30 00:55:00Negative (08/23/18 7:55 PM)[facility] KBTCO4455-42-81 00:55:00* Test Item Value Reference Range Interpretation Comments UA pH (test code = UA pH) 6.0 1 5.0-8.0 [facility] QDNHL6333-29-03 00:55:00Negative *NA*(08/23/18 7:55 PM) [facility] WGUTJ1454-93-07 00:55:00* Test Item Value Reference Range Interpretation Comments UA Spec Grav (test code = UA Spec Grav) 1.004 1 [facility] HTIPU6521-16-23 00:55:00Clear (08/23/18 7:55 PM) [facility]annCHEM IEQYG6621-25-92 00:33:00* Test Item Value Reference Range Interpretation Comments B/C Ratio (test code = B/C Ratio) 8 1 25 [facility]annCHEM ZKAXK2424-27-48 00:33:0013.7[facility]annCHEM PANEL 2018-08-24 00:33:00* Test Item Value Reference Range Interpretation Comments A/G Ratio (test code = A/G Ratio) 1.1 1 0.7-1.6 [facility]annCHE[facility] UVKDD1924-75-72 00:33:003.6[facility]annCHEM PANEL 2018-08-24 00:33:19215Olytqvbe HermannCHEM MHWCK1870-17-42 00:33:0073[facility]annCHEM JDVED0064-16-09 00:33:003.8[facility] HermannCHEM OIXIL7698-02-57 00:33:007.4[facility]annCHEM WMYZK7637-62-91 00:33:47781Pqfpjeyl HermannCHEM UPOZR6425-01-17 00:33:0061[facility]annCHEM PNGDA9594-69-14 00:33:000.2 [facility]annCHE[facility] BXVYL0057-50-89 00:33:0094[facility]annCHEM PANEL 2018-08-24 00:33:000.64[facility]annCHEM UCGIF4445-79-30 00:33:005[facility]annCHEM KMFWT1707-88-52 00:33:39943Olszkfib HermannCHEM UXSNE4998-24-05 00:33:003.7[facility]annCHEM FLOFZ9685-86-06 00:33:13476Bdgwfzso HermannCHEM JUCQA8703-42-95 00:33:008.5[facility]annCHEM RFDIZ5279-40-93 00:33:0024 [facility] NijhvpfKGAIHBRNOXCXS6950-58-96 00:33:00Negative *NA*(08/23/18 7:33 PM) [facility] LpcthugYUARAXBZKF5423-23-73 00:33:000.1[facility]annHEMATOLOGY 2018-08-24 00:33:000.1[facility] SpnbektMSGEAYUPMI4797-04-12 00:33:002.3[facility] SewptjyGAJAKCAXUW0588-33-96 00:33:001.6[facility] QhmlfiwFMEDHXDEAT3176-09-31 00:33:000.5[facility] XkebcoxLXQZZHKZTP9762-98-88 00:33:002.4[facility] QHSPGXFDIE0677-07-44 00:33:001.4[facility] SvtsossJAFIQXLIHJ0643-41-71 00:33:00 10.8[facility] PzaehduRYXIUFFNKN1867-68-75 00:33:0034.9[facility] HermannHEMATOLOGY 2018-08-24 00:33:0050.5[facility] RazblmnZAIEIVRLWC0543-27-81 00:33:0094.4[facility] QliluphCFOBLHIZYV2295-97-31 00:33:0042.3[facility] JdqveheXHUMEXLFHZ3469-59-73 00:33:0033.1[facility] BfdtcfzQNHGTMRGEG4731-32-66 00:33:00* Test Item Value Reference Range Interpretation Comments MCH (test code = MCH) 31.2 pg 27.0-31.0 [facility] PtnsubcSSRNGLUKAN1170-19-08 00:33:004.6[facility] HermannHEMATOLOGY 2018-08-24 00:33:0014.0[facility] OuccrymHHAXQVQPKO4117-42-93 00:33:004.48[facility] JnruefsNMZCCRJJKT0663-96-86 00:33:15970Zpegqqbh ZegbrtcLBQIHXUNBI6751-18-09 00:33:0013.7[facility] UrjiqhnDFDPYWSOSJ3989-89-88 00:33:007.8[facility] MNJCBLKDJQ2379-87-70 00:33:000.369[facility] FeljvpiRXUTZFWFOL4712-50-68 00:33:00 369[facility] EktsnlkXEZCOSWRAX5981-41-77 00:33:003.4[facility] HermannTOXICOLOGY 2018-08-24 00:33:00<2 (08/23/18 7:33 PM)[facility]DR[facility] OJJWQH7786-59-84 02:39:00See Note (08/01/18 9:39 PM)[facility] HXSXDL1440-33-85 02:39:00 Negative *NA*(08/01/18 9:39 PM)[facility] SWUSQR8755-15-46 02:39:00 Negative *NA*(08/01/18 9:39 PM)[facility] JNHAYS7373-02-99 02:39:00 Negative *NA*(08/01/18 9:39 PM)[facility] OXLBZS4833-22-56 02:39:00 Negative *NA*(08/01/18 9:39 PM)[facility] LYZEYW7022-09-89 02:39:00 Negative *NA*(08/01/18 9:39 PM)[facility] UBJCNA9191-56-65 02:39:00 Negative *NA*(08/01/18 9:39 PM)[facility] QTQACP2241-31-88 02:39:00 Negative *NA*(08/01/18 9:39 PM)[facility] PEKZT2090-54-58 02:39:00 Negative (08/01/18 9:39 PM)[facility] VVXPB7412-74-00 02:39:00<1 [facility] OHYDG6810-92-72 02:39:00<1[facility] MFYXJ4481-49-23 02:39:00Negative (08/01/18 9:39 PM)[facility] WQQBM8830-17-42 02:39:00Negative (08/01/18 9:39 PM)[facility] NGNXT8740-34-89 02:39:00* Test Item Value Reference Range Interpretation Comments UA pH (test code = UA pH) 6.0 1 5.0-8.0 [facility] HKQCG4782-31-82 02:39:00Negative *NA*(08/01/18 9:39 PM) [facility] ITJIN4061-52-50 02:39:00Clear (08/01/18 9:39 PM) [facility] XBHJA7620-88-92 02:39:00* Test Item Value Reference Range Interpretation Comments UA Spec Grav (test code = UA Spec Grav) 1.004 1 [facility] QrrakwpEABUNBSOBM5172-77-24 02:18:000.419[facility] HermannTOXICOLOGY 2018-08-02 02:18:70449Johmvrvf HermannCARDIAC EXJAOHB5881-47-73 02:04:0086 [facility] XkhfwhyIUSOHSDRPSBO6902-94-30 02:04:0019.6[facility] HermannELECTROLYTES 2018-08-02 02:04:00* Test Item Value Reference Range Interpretation Comments B/C Ratio (test code = B/C Ratio) 11 1 6-25 [facility] EwwalyqLKERILXWDIYB3138-12-45 02:04:00* Test Item Value Reference Range Interpretation Comments A/G Ratio (test code = A/G Ratio) 1.1 1 0.7-1.6 [facility] UatgtmpEYAUCOVDQYLG2662-80-05 02:04:003.5[facility] HermannELECTROLYTES 2018-08-02 02:04:22752Tkkkxigh ShmimbbVEJDMGAJZHMZ7908-30-36 02:04:008[facility] PhteciuOOWCTMOXSHAF8333-24-45 02:04:000.71[facility] MeobaleVHDRMPWAHMZQ1419-83-17 02:04:0064[facility] ZrlnudbXNAZYNEYBQVF7064-21-57 02:04:000.2[facility] PWDWXJSFGWFR4974-99-48 02:04:003.7[facility] RpvarchTPBTMJEVICDM0305-26-77 02:04:007.2[facility] MrfetjuTTDWWJOLAJYP3361-63-21 02:04:0093[facility] NAEESAGMKULY9266-30-79 02:04:0028[facility] KzypgggAKXIHXBHOFLI7301-84-94 02:04:00 32[facility] DmysskbVPMCDQTEKXMS1142-26-26 02:04:96123Fhxvvoki HermannELECTROLYTES 2018-08-02 02:04:003.6[facility] YkrqzlmCXIEZTWRIBJD5564-35-07 02:04:008.7[facility] MfwumkiZQYHYGCTHKES4315-05-52 02:04:69326Hqxaagtc SezagspJILTGCGDXGMG5304-39-38 02:04:0022[facility] OxqaccrKEYTXWNHLCISH9209-39-33 02:04:00Negative *NA*(08/01/18 9:04 PM)[facility] OztsnajUIRETGRTQX8130-94-48 02:04:000.1[facility] AFRMHYSDBJ7779-87-79 02:04:000.1[facility] MsmvpapUHUNNTSGSI7557-09-23 02:04:000.3 [facility] UnudutdEKWPWDRSKA4028-83-05 02:04:0024.4[facility] HermannHEMATOLOGY 2018-08-02 02:04:0069.9[facility] QrwsasxWPVSENFHAY7289-93-94 02:04:000.8[facility] ZkftfkvQYUGQQKUDC2908-45-38 02:04:002.1[facility] IhdsapkDGDAKSLYEY6761-93-86 02:04:005.9[facility] GbipbwlQQVUKZMPZJ9695-86-33 02:04:001.0[facility] VJQASDFRHV1032-44-15 02:04:003.9[facility] EgvnqhnBFROVYVKQY0500-96-78 02:04:00 12.8[facility] LddbkcjRQSLKUSYFQ0507-12-67 02:04:0013.3[facility]annHEMATOLOGY 2018-08-02 02:04:15483Merigqvy YunjcrvTRSNKUJJKM2935-01-81 02:04:0033.8[facility] LsyivscEFPPPHXRCD5840-05-82 02:04:007.4[facility] EneetiyNEFGQIEFIC8945-98-31 02:04:00* Test Item Value Reference Range Interpretation Comments MCH (test code = MCH) 31.7 pg 27.0-31.0 [facility] WerghrxTPQRHFMUPU7160-47-32 02:04:0038.0[facility]annHEMATOLOGY 2018-08-02 02:04:0093.9[facility] ZugooozQELPLFERBT3560-24-28 02:04:004.05[facility] VhtdhgfVUZRQATEYA7669-63-56 02:04:008.4[facility] HermannCHEM RQHCO4215-30-82 21:59:008.7[facility] HermannCHEM KPFOJ6359-68-78 21:59:91698Csciktix HermannCHEM JMASO7939-07-22 21:59:003.8[facility] HermannCHEM TZXZQ3873-48-85 21:59:73834 [facility]annCHE[facility] BEWDJ1363-72-27 21:59:00114Avwcthui HermannCHEM PANEL 2018-07-30 21:59:0018[facility] HermannCHEM BDRIO0544-17-92 21:59:000.64[facility] HermannCHEM GAWGA5749-23-11 21:59:004.0[facility] HermannCHEM WOIXE4361-58-18 21:59:0027[facility]annCHEM LYGYI8866-50-90 21:59:0090[facility]annCHEM HKEME5851-99-22 21:59:004[facility]annCHEM CFGEO3380-42-27 21:59:000.2 [facility]annCHE[facility] ZYHRC6630-62-88 21:59:007.6[facility]annCHEM PANEL 2018-07-30 21:59:0079[facility] HermannCHEM HFFBU8981-28-68 21:59:0031[facility]annCHEM EOYGP2265-31-80 21:59:00* Test Item Value Reference Range Interpretation Comments B/C Ratio (test code = B/C Ratio) 6 1 6-25 [facility]annCHEM GODDI2630-80-38 21:59:0013.8[facility] HermannCHEM PANEL 2018-07-30 21:59:003.6[facility] HermannCHEM EVVWV3666-57-70 21:59:00* Test Item Value Reference Range Interpretation Comments A/G Ratio (test code = A/G Ratio) 1.1 1 0.7-1.6 [facility]DR[facility] MUAKKI3490-66-05 21:59:00Negative *NA*(07/30/18 4:59 PM) [facility] GYWQXJ3905-12-06 21:59:00Negative *NA*(07/30/18 4:59 PM) [facility] FKIIUX4423-37-17 21:59:00Negative *NA*(07/30/18 4:59 PM) [facility] CUVBSN2347-39-66 21:59:00Negative *NA*(07/30/18 4:59 PM) [facility] IBWJXL5355-33-13 21:59:00Negative *NA*(07/30/18 4:59 PM) [facility] UHXQPN0874-92-41 21:59:00Negative *NA*(07/30/18 4:59 PM) [facility] LYDLXP7360-78-09 21:59:00Negative *NA*(07/30/18 4:59 PM) [facility] MXQBMQ2680-05-36 21:59:00See Note (07/30/18 4:59 PM)[facility] FdnzrcmZUVUCTFQOV2581-09-03 21:59:000.6[facility] LmemystJVGMIDEMCW3796-58-82 21:59:005.0[facility] LfkszkxFDKIPHUEDY5481-11-30 21:59:003.1[facility] MCPUYIGBLZ8706-24-91 21:59:000.3[facility] CjjzhofJUHJEMNGII4264-66-71 21:59:000.1 [facility] WwzzcfkLTLRRLFZQI6126-35-42 21:59:000.1[facility] HermannHEMATOLOGY 2018-07-30 21:59:001.1[facility] TxpsickVKMMHIRENA4475-14-69 21:59:003.1[facility] HnkgtgfUBVGOVNGXT9491-48-17 21:59:0036.3[facility] BmegoyyAXMMZNMTRW1970-46-55 21:59:0058.9[facility] RhmrgbdEOPLORRLXG5206-66-72 21:59:0013.7[facility] VJYBQFIYPF4903-89-15 21:59:0033.0[facility] AxdadikYFUIMLSWGZ0478-42-94 21:59:00 7.5[facility] XfemgxoUKBCSURXVO1605-27-51 21:59:04834Iztoajcp HermannHEMATOLOGY 2018-07-30 21:59:008.5[facility] UqdneqrMFBDTCYMJT1646-63-19 21:59:0093.7[facility] LmzldnqZMZPITFJXP4066-35-93 21:59:0041.6[facility] AmppcycYERTNHVUAS9508-58-90 21:59:00* Test Item Value Reference Range Interpretation Comments MCH (test code = MCH) 30.9 pg 27.0-31.0 [facility] EhmkaxkEOSAPDLBHO0628-95-63 21:59:0013.7[facility] HermannHEMATOLOGY 2018-07-30 21:59:004.44[facility] RcpbnmrZRBWQMVPJJ4394-51-87 21:59:000.346 [facility] IveudcoFMHHIRTVFZ0666-14-47 21:59:35462Bythioeb HermannTOXICOLOGY 2018-07-30 21:59:00<2 (07/30/18 4:59 PM)[facility] HgnvmorJKHLWVRKZO4764-33-98 21:59:004.2[facility] HermannCHEM INEKM6741-72-79 08:27:74099Ojrepjqp HermannCHEM ZLHJK1969-44-55 08:27:008.2[facility] HermannCHEM LMEQW7172-88-19 08:27:0026 [facility]annCHEM LRHUS8894-29-81 08:27:56529Ltvnzygm HermannCHEM PANEL 2018-07-27 08:27:003.6[facility] HermannCHEM WWXDK4351-68-55 08:27:80526Bolwblqw HermannCHEM SFLTX2322-83-43 08:27:80971Gbfytmrk HermannCHEM OOJXO4650-37-47 08:27:006[facility] HermannCHEM VDBQR6686-27-70 08:27:000.59[facility] HermannCHEM NTHKY4065-52-89 08:27:0010.6[facility] KdyjzshQNSQPWAVMM8971-82-00 08:27:0017.3 [facility] MzngxptUOYMVGWINL9582-71-13 08:27:0068.6[facility] HermannHEMATOLOGY 2018-07-27 08:27:002.3[facility] EubimqwJVTKTPYVAC7098-81-13 08:27:001.8[facility] MqmjdnnNAKYQAZBBF6299-92-83 08:27:000.2[facility] MjkrivlWJDHUXDYDB1371-44-32 08:27:009.0[facility] HvregpcZPPWAANUPM1322-84-52 08:27:0013.6[facility] MTVYLOMYCA9843-37-81 08:27:000.3[facility] QookvolRNNLUYSEHI8749-51-03 08:27:00 34.2[facility] TvhwxwjYWUDYNAWXK4006-18-66 08:27:00* Test Item Value Reference Range Interpretation Comments MCH (test code = MCH) 31.6 pg 27.0-31.0 [facility] YenvcqrLQIINKXMXM6227-66-85 08:27:008.7[facility] HermannHEMATOLOGY 2018-07-27 08:27:0013.2[facility] NjlaqwxYVSJCFJSXT2686-99-18 08:27:24454Usurivme VtozzksTTXNKAFFWK8173-20-28 08:27:0092.4[facility] EwmntowVQLECHXMKW0194-42-65 08:27:0013.1[facility] BngxzmuOYKQLAOXTP0901-05-97 08:27:0037.3[facility] INQCQEDRRM4990-05-18 08:27:004.03[facility] ZnckhokBMSHNZAOFV8430-66-90 08:27:00 12.7[facility]annURINE ZSLG0434-35-98 01:34:00Negative (07/26/18 8:34 PM) [facility]annBLOOD BANK PSGENQP2969-52-99 13:17:00Negative (07/26/18 8:17 AM) [facility] JpedqaeAZUJSHMTZCXJ5107-57-39 13:17:0013.8[facility] HermannELECTROLYTES 2018-07-26 13:17:48892Hfdhzmbu IrcjsefMALJDCQORAHH0631-97-69 13:17:009.0[facility] IltxihhVVMUATIUHNJP3279-69-06 13:17:003.8[facility] VpfcwdmZEHKXUUCUXLI1988-56-58 13:17:37904Nbsypvzb CiokvndJCEAJILJJXMO9257-22-17 13:17:06036Jybvbndp [facility] ZQCFKZUPQRCI8748-07-74 13:17:0021[facility] RsmxnzyIZMWAPYMVUHZ9144-80-90 13:17:00 0.65[facility] RquriupKRKVSCZNEPCN8828-80-29 13:17:007[facility] HermannELECTROLYTES 2018-07-26 13:17:0078[facility] PrdlqquLTYVLFYLJK7272-90-43 13:17:0092.8[facility] TchopagBPUNCQSAHY7119-14-02 13:17:0041.8[facility] VmwocpaEOJPPBJSAT6307-31-86 13:17:83771Gwfyivdr GjalznqLLIVMPSEDN6838-81-53 13:17:0013.4[facility] SGEQQUKSXA2333-73-88 13:17:0033.8[facility] QyroqahIMZQJREHJJ9968-60-12 13:17:00* Test Item Value Reference Range Interpretation Comments MCH (test code = MCH) 31.4 pg 27.0-31.0 [facility] YsreuaeQWIQSPWXSX2708-75-87 13:17:008.3[facility]annHEMATOLOGY 2018-07-26 13:17:0014.1[facility] ExbmputRZLMGIRJPV9981-10-83 13:17:005.6[facility] KfbddpyNQOABTFDGI5457-29-44 13:17:004.50[facility] IhntguyMTNBWNMDQI5329-61-51 13:17:0014.5[facility] HxoqtcsOWHLOBXQQQ0468-12-04 13:17:000.8[facility] KXXOEBLDDM4370-05-94 13:17:001.9[facility] UymxbhjYHBCMRVFIK2200-54-77 13:17:000.8 [facility] LctugykIKCUZCNHSJ5880-16-38 13:17:002.8[facility]annHEMATOLOGY 2018-07-26 13:17:001.9[facility] KiqrnsnMXZWGPYSXT5873-32-69 13:17:000.1[facility] VavnfhiANXAEVGGNK0564-36-32 13:17:0049.7[facility] MssigjwVZZJZFWQGN3225-05-91 13:17:0033.1[facility] HermannCHEM OGTOD1075-76-14 04:05:81617Plmooist HermannCHEM GUHVR7204-28-27 04:05:0013.9[facility]annCHEM DCDSN2925-05-42 04:05:00* Test Item Value Reference Range Interpretation Comments B/C Ratio (test code = B/C Ratio) 8 1 6-25 [facility]annCHEM XKAMB3969-56-14 04:05:009.3[facility]annCHEM PANEL 2018-05-04 04:05:0086[facility]annCHEM FVFRE5160-76-13 04:05:006[facility]annCHEM FFSCT4834-32-63 04:05:14207Qrdkwfih HermannCHEM QTUSY0972-56-01 04:05:0025[facility]annCHEM OFZFH5210-34-97 04:05:81242Nrcboplw HermannCHEM QUTBO0743-69-33 04:05:003.9[facility]annCHEM BSTFF7117-22-84 04:05:000.72 [facility]annCHE[facility] NXCLK5669-67-00 04:05:0094[facility]annCHEM PANEL 2018-05-04 04:05:0030[facility]annCHEM TYTBB9136-00-17 04:05:0062[facility]annCHEM SDODZ1000-86-88 04:05:00* Test Item Value Reference Range Interpretation Comments A/G Ratio (test code = A/G Ratio) 1.1 1 0.7-1.6 [facility]annCHE[facility] INVYO8372-38-25 04:05:000.3[facility]annCHEM PANEL 2018-05-04 04:05:003.8[facility]annCHEM TIGTO3187-43-57 04:05:004.1[facility]annCHEM MEINV0552-88-24 04:05:007.9[facility] SzkehftMDWOZBQSIJZSQ8330-98-62 04:05:574913Aqqvmhfb UnjnnmaBVJXXQDKIT3210-86-98 04:05:0089.4[facility] YHEWBBKJWY0482-32-35 04:05:0014.3[facility] UytkydyGXGLQKCNUQ0782-05-99 04:05:00 42.3[facility] RpfjggoRDFKCBXZXA0139-41-90 04:05:0014.2[facility]annHEMATOLOGY 2018-05-04 04:05:44652Cwlrtase LcuvytkIIAVYOIVQA2104-47-79 04:05:0033.9[facility] AttwnuyWOIGLFCNUQ7697-81-05 04:05:00* Test Item Value Reference Range Interpretation Comments MCH (test code = MCH) 30.3 pg 27.0-31.0 [facility] RhowrudLJSZBTBKTM8745-12-59 04:05:007.7[facility]annHEMATOLOGY 2018-05-04 04:05:0010.4[facility] GhhgdjmQYKPJXTVJU9150-76-83 04:05:004.73[facility]annURINE AND ACTSE9636-80-81 04:05:00None Seen (05/03/18 10:05 PM)[facility] XTEDI9392-15-95 04:05:00Performed (05/03/18 10:05 PM)[facility] XRDCW9318-28-63 04:05:000.2[facility] STOOL 2018-05-04 04:05:00Negative *NA*(05/03/18 10:05 PM)[facility] MUUNL0661-04-23 04:05:00Large *ABN*(05/03/18 10:05 PM)[facility] XAOTI4601-76-11 04:05:00Negative (05/03/18 10:05 PM)[facility] OHRLT0193-81-82 04:05:00* Test Item Value Reference Range Interpretation Comments UA pH (test code = UA pH) 8.0 1 5.0-8.0 [facility] OZWUB1624-59-97 04:05:00Negative (05/03/18 10:05 PM) [facility] UEMBI3619-07-94 04:05:00Clear (05/03/18 10:05 PM) [facility] GQQOU7950-66-26 04:05:00<=1.005 *NA*(05/03/18 10:05 PM) [facility] GFWHE6556-41-50 04:05:00Negative *NA*(05/03/18 10:05 PM)[facility] LFIFY1896-45-42 04:05:00Negative (05/03/18 10:05 PM) [facility] BIYJN7648-43-54 04:05:00Trace *ABN*(05/03/18 10:05 PM) [facility] GYOEL8719-12-62 04:05:00Yellow *NA*(05/03/18 10:05 PM) [facility] PPMN7101-69-82 04:05:00Positive *ABN*(05/03/18 10:05 PM) [facility] XETPZY0375-71-36 17:05:00See Note (10/31/17 12:05 PM) [facility] RYCGBC8512-47-85 17:05:00Negative *NA*(10/31/17 12:05 PM) [facility] DJGFQC1988-62-59 17:05:00Negative *NA*(10/31/17 12:05 PM) [facility] SLBUTI9496-74-46 17:05:00Negative *NA*(10/31/17 12:05 PM) [facility] ZXWMYI3121-36-95 17:05:00Negative *NA*(10/31/17 12:05 PM) [facility] NWZVSH9436-64-34 17:05:00Negative *NA*(10/31/17 12:05 PM) [facility] DUSQYB1864-33-13 17:05:00Positive *ABN*(10/31/17 12:05 PM) [facility] RABITK8980-38-42 17:05:00Negative *NA*(10/31/17 12:05 PM) [facility] MydxvccHLTCWZACUA9126-18-97 15:24:28767Fmdxfyll HermannTOXICOLOGY 2017-10-31 15:24:000.206[facility] CuczepdEUQJTMLEPJGX1794-78-96 09:49:4728 [facility] HxxfmozPVNXWVBHIBIZ8437-79-16 09:49:477.9[facility] HermannELECTROLYTES 2017-10-31 09:49:72464Ruttbfcc ZajzhisBANDTHFRRJVL1707-86-54 09:49:474.2[facility] CwjhlxbIIZXDAUFEVSK3078-55-80 09:49:478.2[facility] IiybhppFXGDFCPOLIOG0592-69-43 09:49:470.62[facility] UybrmblJUCQPJYRIZUT8593-02-62 09:49:473[facility] SSBTCBIVQZWU1681-67-34 09:49:4785[facility] CryvmqpJIVXDTIPITYH3101-84-92 09:49:47 146[facility] LvvreltAYBIKSUHXPWS6741-05-53 09:49:4736[facility] HermannELECTROLYTES 2017-10-31 09:49:473.4[facility] LjpzpyuUMOHBJKGBDMW3209-12-00 09:49:470.3[facility] SiismnvNBWCWSCIUFKN6271-29-76 09:49:66693Qhzomsvm OpezvqhSOICRBWEVCGO2276-64-63 09:49:4761[facility] FqvavrzWHFGUTPOUDPT3061-80-47 09:49:23005Bgmexruz [facility] PBTGNAHSEFAB2925-80-74 09:49:474.8[facility] IyaenghSQSRYXEISKDL2992-69-30 09:49:47* Test Item Value Reference Range Interpretation Comments B/C Ratio (test code = B/C Ratio) 5 1 08-29 [facility] SajfmtsQGIHEBKMDLZO8054-22-47 09:49:47* Test Item Value Reference Range Interpretation Comments A/G Ratio (test code = A/G Ratio) 0.7 1 0.7-1.6 [facility] JzummclJZQWGTQYASAD0264-87-92 09:49:4715.2[facility]annHEMATOLOGY 2017-10-31 09:49:472.2[facility] NyrthggARTVWBYGJP6800-14-23 09:49:471.1[facility] KhzyevdLTATUMFJJV5239-28-12 09:49:470.4[facility] JqrfabiXHRVCDFBKF9395-80-68 09:49:470.1[facility] EjqqhlmUGOHSLXIQY1763-67-88 09:49:4729.3[facility]ry JOXIHNDEVY1216-62-35 09:49:471.8[facility] FcragocZQOOXKYHZS3883-41-60 09:49:47 10.3[facility] XyrvfqrLSYCYYWKFQ6316-27-26 09:49:470.9[facility] HermannHEMATOLOGY 2017-10-31 09:49:4757.7[facility] OcuebicIVSJSQFDHE1039-48-63 09:49:4734.4[facility] LliqrebRJXJXSBQFR1580-78-51 09:49:4786.8[facility] OrpofqiIHTDFDHFTU7316-49-05 09:49:477.0[facility] YjzsigkUSEJNQPTDN4741-99-56 09:49:47* Test Item Value Reference Range Interpretation Comments MCH (test code = MCH) 28.5 pg 27.0-31.0 [facility] YjgswjwSAYFDCNTSY6811-22-30 09:49:56486Yzlrnfkg HermannHEMATOLOGY 2017-10-31 09:49:4732.9[facility] WquudvhNRGICQBPRT9205-90-40 09:49:4718.4[facility] MqzgtpaCLRQODYWPA5328-11-45 09:49:473.9[facility] CaeyhuwSCQIFOGMFI6354-03-54 09:49:473.97[facility] PfgompdOQRBFYNNWC5474-80-45 09:49:4711.3[facility] EUGTATQDTS2986-94-44 09:49:47<2[facility] LttwguhHMKIHSVIDM3625-94-11 09:49:47 0.325[facility] EfpwjyxVIXKXZEILQ6381-76-43 09:49:96498Lhxjqloc HermannTOXICOLOGY 2017-10-31 09:49:473.3[facility] HihdsqgNWCBHKFNUZAF0536-28-12 21:22:0024[facility] BsowluxULSEVMHZQHEV9037-38-19 21:22:009.2[facility] LwxvuugGKEWEMVKIGMP2609-34-86 21:22:00815Crmizaxc AjbsbypPDNAZOXEYLVR7449-50-08 21:22:004.0[facility] GOUBKASMMDGB9746-31-53 21:22:94802Khuyjqie GsgudyzCNZKULDPGYWY8418-69-50 21:22:000.76[facility] PqaprikDHMTGIRBWPZO6409-11-21 21:22:004[facility] KVHMEZPCXQBH8934-99-63 21:22:55374Ybvxxamp QjftrqfFESCCNHEBICC7856-92-63 21:22:88721Celmsiey HajyscjAMMEYYKHELZR4210-96-41 21:22:0013.0[facility] FQWIWKISOW0274-33-12 21:22:02700Gifvlzxa MgfhsurEKHQUWXQFJ2295-06-46 21:22:008.0 [facility] PgkkmjgHMFDAYHBYK5394-70-18 21:22:009.7[facility]annHEMATOLOGY 2017-08-07 21:22:003.81[facility] SxmxgfjBFJRNBTKCF5057-32-00 21:22:0032.6[facility] UgyamhdGHBRKPURTJ5313-79-11 21:22:0015.2[facility] LezjjvwSRDRFXPHFE7659-46-72 21:22:0010.9[facility] ByvteftQRFMQRPAAJ3280-53-57 21:22:0087.8[facility] Ophir XTOWVRGVLK9514-89-23 21:22:00* Test Item Value Reference Range Interpretation Comments MCH (test code = MCH) 28.6 pg 27.0-31.0 [facility] ZyphsbqRVXRAZFMRX2851-39-08 21:22:0033.4[facility] HermannHEMATOLOGY 2017-08-07 21:22:0064.9[facility] ImouzjgVUHEUTAPNP0782-40-21 21:22:001.4[facility] SywuwdaWBSAXLAMNO6516-24-22 21:22:000.5[facility] CigcimjONFOCTZWSO7707-73-09 21:22:006.3[facility] QhqylkhDLLNFAKSNM6924-08-66 21:22:001.1[facility] KDBTSNQQRF6167-95-62 21:22:001.9[facility] KxbvynwIUMJQAFALY3282-75-01 21:22:000.1 [facility] EgdmiiySRYXJFTBJE2194-16-68 21:22:0019.3[facility]annHEMATOLOGY 2017-08-07 21:22:0014.2[facility] EwucxstAOCZCQUDKX7952-92-79 21:22:000.1[facility]annURINE AND DCVFY6491-48-65 21:14:00Negative (08/07/17 4:14 PM)[facility] GJJTM7800-43-10 21:14:00* Test Item Value Reference Range Interpretation Comments UA pH (test code = UA pH) 6.0 1 5.0-8.0 [facility] FGUAC0310-30-53 21:14:00Negative *NA*(08/07/17 4:14 PM) [facility] GOFBS3676-12-39 21:14:00Negative *NA*(08/07/17 4:14 PM) [facility] TYGTI1242-11-13 21:14:00Negative (08/07/17 4:14 PM) [facility] WARSZ1257-32-43 21:14:00Clear (08/07/17 4:14 PM)[facility] RORCU4024-86-72 21:14:00Yellow *NA*(08/07/17 4:14 PM)[facility] IRZDN7595-77-20 21:14:00<=1.005 *NA*(08/07/17 4:14 PM)[facility] JDGKX0277-71-00 21:14:00Negative (08/07/17 4:14 PM)[facility] GVVYZ3437-29-36 21:14:00Negative (08/07/17 4:14 PM)[facility] QLJJF9818-03-66 21:14:00Moderate *ABN*(08/07/17 4:14 PM)[facility] AND QBWHF1595-65-56 21:14:000.2[facility]annURINE SXLD6861-71-94 21:14:00Negative (08/07/17 4:14 PM)[facility] Gzwhh6874-91-76 23:16:00* Test Item Value Reference Range Interpretation Comments Ethyl Alcohol Level (test code = 5643-2) 246.1 0.0-10.0 H [facility] AmericaCreatine Kinase IV1241-90-09 22:18:00* Test Item Value Reference Range Interpretation Comments Creatine Kinase MB (test code = 71353-1) 2.00 0-5.0 [facility] AmericaTroponin V9141-69-83 22:18:00* Test Item Value Reference Range Interpretation Comments Troponin I (test code = HFE9132) 0.001 0-0.300 [facility] Owojs2069-75-31 22:11:00* Test Item Value Reference Range Interpretation Comments Sodium Level (test code = 2951-2) 143 136-145 [facility] AmericaPotassium Pmpsd4543-30-21 22:11:00* Test Item Value Reference Range Interpretation Comments Potassium Level (test code = 2823-3) 3.8 3.5-5.1 [facility] AmericaChloride Hksbd5073-13-81 22:11:00* Test Item Value Reference Range Interpretation Comments Chloride Level (test code = 2075-0) 109 98-107 H [facility] AmericaCarbon Dioxide Qmelw9098-77-33 22:11:00* Test Item Value Reference Range Interpretation Comments Carbon Dioxide Level (test code = 2028-9) 22 22-29 [facility] AmericaAnion Gve6107-69-82 22:11:00* Test Item Value Reference Range Interpretation Comments Anion Gap (test code = 63175-6) 15.8 8-16 [facility] AmericaBlood Urea Tcofpmue2578-21-54 22:11:00* Test Item Value Reference Range Interpretation Comments Blood Urea Nitrogen (test code = 3094-0) 6 7-26 L [facility] AmericaCreatinine2018-04-14 22:11:00* Test Item Value Reference Range Interpretation Comments Creatinine (test code = 2160-0) 0.72 0.57-1.11 [facility] AmericaBUN/Creatinine Xjmgz1657-49-16 22:11:00* Test Item Value Reference Range Interpretation Comments BUN/Creatinine Ratio (test code = 3097-3) 8 6-25 [facility] of AmericaEstimat Glomerular Filtration Rate 2017-06-18 22:11:00* Test Item Value Reference Range Interpretation Comments Estimat Glomerular Filtration Rate (test code = 74256-5) 60- >60 Ranges were taken from the National Kidney Disease Education Program and the [facility] literature.Reference ranges:60 or greater: Jomhtp52-39 ( for 3 consecutive months): Chronic kidney disease 15 or less: Kidney failureSurgery Specialty Hospitals of AmericaGlucose Ftyef5539-93-49 22:11:00* Test Item Value Reference Range Interpretation Comments Glucose Level (test code = EJV6952) 84 74-118 [facility] AmericaCalcium Nafgu9446-26-36 22:11:00* Test Item Value Reference Range Interpretation Comments Calcium Level (test code = 59959-2) 9.2 8.4-10.2 [facility] of AmericaTotal Lgaqwmdbp9430-12-36 22:11:00* Test Item Value Reference Range Interpretation Comments Total Bilirubin (test code = 1975-2) 0.2 0.2-1.2 [facility] of AmericaAspartate Amino Transf (AST/SGOT) 2017-06-18 22:11:00* Test Item Value Reference Range Interpretation Comments Aspartate Amino Transf (AST/SGOT) (test code = Aspartate Amino Transf (AST/SGOT)) 29 5-34 [facility] AmericaAlanine Aminotransferase (ALT/SGPT) 2017-06-18 22:11:00* Test Item Value Reference Range Interpretation Comments Alanine Aminotransferase (ALT/SGPT) (test code = 1742-6) 27 0-55 [facility] of AmericaTotal Mfnqhdq9855-04-38 22:11:00* Test Item Value Reference Range Interpretation Comments Total Protein (test code = 2885-2) 8.1 6.5-8.1 [facility] AmericaAlbumin2018-04-14 22:11:00* Test Item Value Reference Range Interpretation Comments Albumin (test code = 1751-7) 4.1 3.5-5.0 [facility] of AmericaGlobulin2018-04-14 22:11:00* Test Item Value Reference Range Interpretation Comments Globulin (test code = 59750-3) 4.0 2.3-3.5 H [facility] AmericaAlbumin/Globulin Quqfa4346-45-83 22:11:00 * Test Item Value Reference Range Interpretation Comments Albumin/Globulin Ratio (test code = 1759-0) 1.0 0.8-2.0 [facility] AmericaAlkaline Zssggcxvjms2308-15-98 22:11:00* Test Item Value Reference Range Interpretation Comments Alkaline Phosphatase (test code = 6768-6) 91 40-150 [facility] AmericaCreatine Gcwjns1182-34-78 22:11:00* Test Item Value Reference Range Interpretation Comments Creatine Kinase (test code = 2157-6) 119 29-168 [facility] AmericaWhite Blood Dedhm4690-84-20 21:55:00* Test Item Value Reference Range Interpretation Comments White Blood Count (test code = 6690-2) 7.28 4.8-10.8 [facility] AmericaRed Blood Vuaoe2820-21-65 21:55:00* Test Item Value Reference Range Interpretation Comments Red Blood Count (test code = 789-8) 4.19 3.6-5.1 [facility] AmericaHemoglobin2018-04-14 21:55:00* Test Item Value Reference Range Interpretation Comments Hemoglobin (test code = 67729-2) 12.9 12.0-16.0 [facility] AmericaHematocrit2018-04-14 21:55:00* Test Item Value Reference Range Interpretation Comments Hematocrit (test code = 4544-3) 38.7 34.2-44.1 [facility] AmericaMean Corpuscular Vvtzyd7104-48-80 21:55:00* Test Item Value Reference Range Interpretation Comments Mean Corpuscular Volume (test code = 787-2) 92.4 81-99 [facility] AmericaMean Corpuscular Regtxkpzee7986-09-15 21:55:00* Test Item Value Reference Range Interpretation Comments Mean Corpuscular Hemoglobin (test code = 785-6) 30.8 28-32 [facility] AmericaMean Corpuscular Hemoglobin Concent 2017-06-18 21:55:00* Test Item Value Reference Range Interpretation Comments Mean Corpuscular Hemoglobin Concent (test code = 786-4) 33.3 31-35 [facility] AmericaRed Cell Distribution Caydn0633-50-84 21:55:00* Test Item Value Reference Range Interpretation Comments Red Cell Distribution Width (test code = 50648-7) 12.0 11.7 -14.4 [facility] AmericaPlatelet Qcexu9809-43-26 21:55:00* Test Item Value Reference Range Interpretation Comments Platelet Count (test code = 777-3) 304 140-360 [facility] AmericaNeutrophils (%) (Auto)2017-06-18 21:55:00 * Test Item Value Reference Range Interpretation Comments Neutrophils (%) (Auto) (test code = 53264-8) 54.4 38.7-80.0 [facility] AmericaLymphocytes (%) (Auto)2017-06-18 21:55:00 * Test Item Value Reference Range Interpretation Comments Lymphocytes (%) (Auto) (test code = 736-9) 38.0 18.0-39.1 [facility] AmericaMonocytes (%) (Auto)2017-06-18 21:55:00* Test Item Value Reference Range Interpretation Comments Monocytes (%) (Auto) (test code = 5905-5) 4.4 4.4-11.3 [facility] AmericaEosinophils (%) (Auto)2017-06-18 21:55:00 * Test Item Value Reference Range Interpretation Comments Eosinophils (%) (Auto) (test code = 713-8) 2.6 0.0-6.0 [facility] AmericaBasophils (%) (Auto)2017-06-18 21:55:00* Test Item Value Reference Range Interpretation Comments Basophils (%) (Auto) (test code = 706-2) 0.5 0.0-1.0 [facility] of AmericaIM GRANULOCYTES %2017-06-18 21:55:00* Test Item Value Reference Range Interpretation Comments IM GRANULOCYTES % (test code = IM GRANULOCYTES %) 0.1 0.0- 1.0 [facility] AmericaNeutrophils # (Auto)2017-06-18 21:55:00* Test Item Value Reference Range Interpretation Comments Neutrophils # (Auto) (test code = 751-8) 4.0 2.1-6.9 [facility] AmericaLymphocytes # (Auto)2017-06-18 21:55:00* Test Item Value Reference Range Interpretation Comments Lymphocytes # (Auto) (test code = 59526-9) 2.8 1.0-3.2 [facility] AmericaMonocytes # (Auto)2017-06-18 21:55:00* Test Item Value Reference Range Interpretation Comments Monocytes # (Auto) (test code = 742-7) 0.3 0.2-0.8 [facility] AmericaEosinophils # (Auto)2017-06-18 21:55:00* Test Item Value Reference Range Interpretation Comments Eosinophils # (Auto) (test code = 711-2) 0.2 0.0-0.4 [facility] AmericaBasophils # (Auto)2017-06-18 21:55:00* Test Item Value Reference Range Interpretation Comments Basophils # (Auto) (test code = 704-7) 0.0 0.0-0.1 [facility] AmericaAbsolute Immature Granulocyte (auto 2017-06-18 21:55:00* Test Item Value Reference Range Interpretation Comments Absolute Immature Granulocyte (auto (chelsi t code = Absolute Immature Granulocyte (auto) 0.01 0-0.1 [facility] AmericaMagnesium Lkedh0131-73-41 22:48:00* Test Item Value Reference Range Interpretation Comments Magnesium Level (test code = 53683-3) 2.0 1.3-2.1 [facility] AmericaAcetaminophen Xiduz8209-52-62 22:48:00* Test Item Value Reference Range Interpretation Comments Acetaminophen Level (test code = 25954-2) 4 10-30 [facility] Tyleralicylates Bfwnu1075-50-88 22:48:00* Test Item Value Reference Range Interpretation Comments Salicylates Level (test code = 4024-6) -5.0 0-30 [facility] AmericaUrine GWY7418-62-46 22:39:00* Test Item Value Reference Range Interpretation Comments Urine WBC (test code = 5821-4) 0-5 0-5 [facility] AmericaUrine JHH3120-19-10 22:39:00* Test Item Value Reference Range Interpretation Comments Urine RBC (test code = 64054-6) 0-5 0-5 [facility] AmericaUrine Fsxpuhdl4283-21-82 22:39:00* Test Item Value Reference Range Interpretation Comments Urine Bacteria (test code = 70017-1) RARE NONE [facility] AmericaUrine Epithelial Wxzpf3720-54-00 22:39:00 * Test Item Value Reference Range Interpretation Comments Urine Epithelial Cells (test code = 24638-8) RARE NONE [facility] AmericaProthrombin Owxp0455-89-65 22:38:00* Test Item Value Reference Range Interpretation Comments Prothrombin Time (test code = 5902-2) 13.8 11.9-14.5 [facility] AmericaProthromb Time International Ratio 2017-01-10 22:38:00* Test Item Value Reference Range Interpretation Comments Prothromb Time International Ratio (test code = 6301-6) 1.01 Oral Anticoagulant Therapy INR Values:1. Low Intensity Therapy 1.5 - 2.02 . Moderate Intensity Therapy 2.0 - 3.03. High Intensity Therapy(1) 2.5 - 3. 54. High Intensity Therapy(2) 3.0 - 4.05. Panic Value INR > 5.0 [facility] AmericaActivated Partial Thromboplast Time 2017-01-10 22:38:00* Test Item Value Reference Range Interpretation Comments Activated Partial Thromboplast Time (test code = 38118-4) 30.9 23.8-35.5 [facility] AmericaUrine Opiates Sebchj3491-52-27 22:31:00* Test Item Value Reference Range Interpretation Comments Urine Opiates Screen (test code = 17530-7) POSITIVE NEGATIVE H ALL TESTS PERFORMED MANUALLY ON SIGNIFY ER TESTThis test provides only a screen. Positive results should be repeated by a confirmatory test.[facility] AmericaUrine Barbiturates Ozfntk8422-92-03 22:31:00* Test Item Value Reference Range Interpretation Comments Urine Barbiturates Screen (test code = 570884097) NEGATIVE NEGA TIVE [facility] AmericaUrine Phencyclidine Yjelzh9106-45-26 22:31:00* Test Item Value Reference Range Interpretation Comments Urine Phencyclidine Screen (test code = 36997-8) NEGATIVE NEGAT BEULAH [facility] AmericaUrine Amphetamines Uygorw6499-72-47 22:31:00* Test Item Value Reference Range Interpretation Comments Urine Amphetamines Screen (test code = 88880-4) NEGATIVE NEGATI VE [facility] AmericaUrine Benzodiazepines Jroiyi5078-54-00 22:31:00* Test Item Value Reference Range Interpretation Comments Urine Benzodiazepines Screen (test code = 68155-1) POSITIVE NEG ATIVE H This test provides only a screen. Positive results should be repeated by a confi rmatory test.[facility] AmericaUrine Cocaine Screen 2017-01-10 22:31:00* Test Item Value Reference Range Interpretation Comments Urine Cocaine Screen (test code = Urine Cocaine Screen) NEGATIVE NEGATIVE [facility] AmericaUrine Cannabinoids Eayjfo0015-07-41 22:31:00* Test Item Value Reference Range Interpretation Comments Urine Cannabinoids Screen (test code = 94879-0) NEGATIVE NEGATI VE THESE RESULTS ARE FOR MEDICAL TREATMENT ONLYTHIS REPORT CONTAINS UNCONFIR MED SCREENING RESULTS*POSITIVE RESULTS WILL BE CONFIRMED BY REFERENCE LAB UPON R EQUEST CUT-OFFDRUG CLASS CONCENTRATION ng/mLAmphetamines 1000Methamphetamines 1000Cocaine 300Opiate 300Phencyc lidine 25Cannabinoid 50Barbiturates 300Benzodiazepine 300Methadone 300[facility] HospitalU[facility] Bggh5048-73-79 22:30:00* Test Item Value Reference Range Interpretation Comments Urine Test (test code = 2106-3) NEGATIVE NEGATIVE [facility] AmericaUrine Rnnal6242-38-74 22:29:00* Test Item Value Reference Range Interpretation Comments Urine Color (test code = 5778-6) STRAW YELLOW [facility] AmericaUrine Ynvghgt2614-20-96 22:29:00* Test Item Value Reference Range Interpretation Comments Urine Clarity (test code = 05272-5) CLEAR CLEAR [facility] Specific Mckgygy3848-05-35 22:29:00 * Test Item Value Reference Range Interpretation Comments Urine Specific [place] (test code = 5811-5) 1.010 1.010-1.02 5 [facility] AmericaUrine iH6483-65-79 22:29:00* Test Item Value Reference Range Interpretation Comments Urine pH (test code = 61060-3) 5 5-7 [facility] AmericaUrine Leukocyte Bwuqqwpq5687-04-79 22:29:00* Test Item Value Reference Range Interpretation Comments Urine Leukocyte Esterase (test code = 5799-2) NEGATIVE NEGATIVE [facility] AmericaUrine Vbcwwzs4204-12-20 22:29:00* Test Item Value Reference Range Interpretation Comments Urine Nitrite (test code = 36607-1) NEGATIVE NEGATIVE [facility] AmericaUrine Ciqtebq3690-10-84 22:29:00* Test Item Value Reference Range Interpretation Comments Urine Protein (test code = 5804-0) NEGATIVE NEGATIVE [facility] AmericaUrine Glucose (UA)2017-01-10 22:29:00* Test Item Value Reference Range Interpretation Comments Urine Glucose (UA) (test code = 2349-9) NEGATIVE NEGATIVE [facility] AmericaUrine Xsnzyzs8690-59-38 22:29:00* Test Item Value Reference Range Interpretation Comments Urine Ketones (test code = 91035-8) NEGATIVE NEGATIVE [facility] AmericaUrine Dhlwoyrzqazb3717-04-60 22:29:00* Test Item Value Reference Range Interpretation Comments Urine Urobilinogen (test code = 13326-3) 0.2 0.2-[address] [facility] HospitalUrine Kasjttntc3327-32-79 22:29:00* Test Item Value Reference Range Interpretation Comments Urine Bilirubin (test code = 1978-6) NEGATIVE NEGATIVE [facility] HospitalUrine Iwrne1631-49-85 22:29:00* Test Item Value Reference Range Interpretation Comments Urine Blood (test code = 41341-8) NEGATIVE NEGATIVE [facility] HospitalCHEST SINGLE (PORTABLE) [place] [address] Patient Name: MANDY ASCENCIO MR #: [id number] : 1985 Age/Sex: 31/F Req #: [id number] Adm Physician: Ordered by: SHAKA MACK MD Report #: [id number] Location: ER Room/ Bed: Procedure: [id number] DX/CHEST SINGLE (PORTABLE) Exam Date: 06/18/17 Exam Time: 2205 REPORT STA TUS: Signed EXAM: CHEST SINGLE (PORTABLE), AP 1 view INDICATION: Status pos t seizure COMPARISON: AP view of the chest January 10, 2017 FINDINGS: L JEFFERSON/TUBES: None LUNGS: No consolidations or edema. PLEURA: No effusi ons or pneumothorax. HEART AND MEDIASTINUM: Normal size and contour. B ONES AND SOFT TISSUES: No acute findings. IMPRESSION: No acute thoracic abnormality. Signed by: Dr. Bee Yun M.D. on 06/18/2017 10:1 2 PM Dictated By: BEE YUN MD 11 Transcribed By: AGNIESZKA on 06/18/172211 COPY TO: SHAKA MACK MD CT BRAIN WO [place] [address] Patient Name: MANDY ASCENCIO MR #: [id number] : 1985 Age/Sex: 31/F Req #: [id number] Adm Physician: Ordered by: JENN MCKEON MD Report #: [id number] Location: ER Room/Bed: Procedure: [id number] CT/CT BRAIN WO Exam Date: Exam Time: REPORT STATUS: Signed Examination: CT BRAIN WITHOUT CONTRAST History:Seizures. Comparison studies:None Mango hnique: Axial images were obtained from the skull base to the vertex. Palomo l and sagittal images reconstructed from the axial data. Intravenous contrast: None Findings: Scalp: No abnormalities. Bones: No fractures, blastic or lytic lesions. Brain sulci: Appropriate for age. Ventricles: Normal in size and configuration. No hydrocephalus. Extra-axial space: No abnorm alities. Parenchyma: No abnormal densities. No masses, hemorrhage, ac amber or chronic vascular insults. Sellar/suprasellar region: No abnormalitie s. Craniocervical junction: Patent foramen magnum. No Chiari one malformation. Incidental findings: None. Impression: No intracranial abnor malities. Signed by: Dr. Linsey Jane M.D. on 01/10/2017 11:08 PM Dictated By: LINSEY MCNEILL MD 07 Transcribed By: AGNIESZKA on 01/10/172307 COPY TO: JENN MCKEON MD CHEST SINGLE (PORTABLE) [place] [address] Patient Name: MANDY ASCENCIO MR #: [id number] : 1985 Age/Sex: 31/F Req #: [id number] Adm Physician: Ordered by: JENN MCKEON MD Report #: [id number] Location: ER Room/Bed: Procedure: [id number] DX/CHEST SINGLE (PORTABLE) Exam D ate: Exam Time: REPORT STATUS: Signed EXAM INATION: CHEST SINGLE (PORTABLE) INDICATION: Seizures COMPARISON: None FINDINGS: TUBES and LINES: None. LUNGS: Jennifer gs are not well inflated. Lungs are clear. There is no evidence of pneumoni a or pulmonary edema. PLEURA: No pleural effusion or pneumothorax. HE ART AND MEDIASTINUM: The cardiomediastinal silhouette is unremarkable. BONES AND SOFT TISSUES: No acute osseous lesion. Soft tissues are unremarka ble. UPPER ABDOMEN: No free air under the diaphragm. IMPRESSION: No acute thoracic abnormality. Signed by: Dr. Martir Tolentino M.D. on 01/10/2017 11:30 PM Dictated By: MARTIR JOHNSON MD Electronically Sign ed By: MARTIR JOHNSON MD on 01/10/17 8779 Transcribed By: AGNIESZKA on 08/21 1151 COPY TO: JENN MCKEON MD
--- OUTSIDE RECORDS SUMMARY | 2019-10-27 09:41 | XMS REPORT | Summary of Care ---
Author Author [facility] - Health Organization [facility] - Health Address Unknown Phone Unavailable Care Team Providers Care Station Baggage Agent Name Role Phone Pcp, Patient Does Not Have A PCP [phone] Reason for Referral * MRI/CAT Scan (STAT) Referred By Contact Referred To Contact Status Reason Specialty Diagnoses / Procedures Sara Salcido FNP [address] [address] New Request Diagnostic Diagnoses Radiology Confusion P rocedures CT Head W/O Contrast * MRI/CAT Scan (STAT) Referred By Contact Referred To Contact Status Reason Specialty Diagnoses / Procedures Sara Salcido FNP [address] [address] New Request Diagnostic Diagnoses Radiology LLQ abdominal pain P rocedures CT ABDOMEN PELVIS W CONTRAST Reason for Visit * Reason Comments Nausea Vomiting Constipation Rash * Auth/Cert Referred By Contact Referred To Contact Status Reason Specialty Diagnoses / Procedures [facility] Emergency Dept [address] [place] [phone] Emergency Medicine Encounter Details Care Team Description Date Type Department Sara Salcido FNP [address] [place] [address] [phone] ETOH abuse (Primary Dx); LLQ abdominal pain; Confusion; Contact dermatitis, unspecified contact dermatitis type, unspecified trigger; Chronic abdominal pain 10/22/2019 Emergency [facility]gency Depar tment - [address] [place] [address] 10/23/2019 [place] [address] Allergies Comments Active Allergy Reactions Severity Noted Date Penicillin Unknown - See 08/06/2019 comments documented as of this encounter (statuses as of 10/23/2019) Medications End Date Status Medication Sig Dispensed Refills Start Date Active gabapentin 600 mg tablet Take 600 mg 0 by mouth 3 (three) times daily. Active FLUoxetine (PROZAC) 20 mg Take 20 mg by 0 capsule mouth daily. Active chlordiazePOXIDE 25 mg Take 1 9 capsule 0 capsuleIndications: capsule by 0 Seizure mouth 3 (three) times daily. Active foLIC acid 1 mg Take 1 tablet 30 tablet 1 08/10/19 2 tabletIndications: by mouth 0 Seizure daily. Active lamoTRIgine 100 mg Take 1 tablet 30 tablet 0 08/08 tabletIndications: by mouth 2 0 Seizure (two) times daily. Active chlordiazePOXIDE 10 mg Take 1 4 capsule 0 capsuleIndications: capsule by 0 Seizure mouth 3 (three) times daily. Active traZODone 100 mg tablet Take 100 mg 0 by mouth at bedtime. Active sulfamethoxazole-trimetho Take 1 tablet 10 tablet 0 prim 800-160 mg per by mouth 0 tabletIndications: every 12 Suicidal ideations (twelve) hours. documented as of this encounter (statuses as of 10/23/2019) Active Problems Problem Noted Date Alcohol withdrawal seizure 08/06/2019 documented as of this encounter (statuses as of 10/23/2019) Social History Date Tobacco Use Types Packs/Day Years Used Never Smoker Smokeless Tobacco: Never Used Drinks/Week oz/Week Comments Alcohol Use Yes Sex Assigned at Date Recorded Not on file Date Recorded COVID-19 Exposure Response 10/22/2019 5:20 PM CDT In the last month, have you been in contact with No / Unsure someone who was confirmed or suspected to have Coronavirus / COVID-19? documented as of this encounter Last Filed Vital Signs Reading Time Taken Comments Vital Sign 129/76 10/23/2019 2:00 AM CDT Blood Pressure 80 10/23/2019 2:00 AM CDT Pulse 36.6 C (97.9 F) 10/22/2019 6:01 PM CDT Temperature 17 10/23/2019 2:00 AM CDT Respiratory Rate 95% 10/23/2019 2:00 AM CDT Oxygen Saturation - - Inhaled Oxygen Concentration 68 kg (150 lb) 10/22/2019 5:23 PM CDT Weight 160 cm (5' 3") 10/22/2019 5:23 PM CDT Height 26.57 10/22/2019 5:23 PM CDT Body Mass Index documented in this encounter Discharge Instructions * Attachments The following attachments cannot be sent through Care Everywhere.* Alcoholism, Understanding (Vietnamese) documented in this encounter ED Notes * Ailyn Olmos - 10/22/2019 6:07 PM CDT Provided ice to patient. * Ailyn Olmos - 10/22/2019 5:31 PM CDT Introduced myself to patient and/or family. Went over today's staff. Offered ser vices that are within my limits. Made sure remote/call button is within reach. P rovided extra pillow and blanket to patient. * Abdi Mcmanus RN - 10/22/2019 5:20 PM CDT Connie Ascencio is a 34 year old female ambulatory to the ED with c/o nausea, vomiti ng, constipation and rash. Patient reports rash started 4 days ago and is gettin g worse. Patient stated the nausea, vomiting and constipations has been hanging around for 7 days or more. Patient went on to mention that she has "short term m jose loss as well. Patient denies SOB or difficulty breathing documented in this encounter Miscellaneous Notes * ED Nurse Note - Radha Rajput RN - 10/23/2019 3:38 AM CDT Pt refused discharge teaching. Pt refused to sign discharge paperwork or have vi bassem signs assessed prior to discharge. Pt had IV removed. Pt threw call light to bed and stated that she is not signing anything because ER staff did not help h er. Pt took off IV bracelet and threw it on bedside table. Pt walked to [facility] to wait for transportation by this RN. [facility] PD notified. * ED Nurse Note - Mignon Mejia RN - 10/23/2019 2:45 AM CDT When I went back into the patient's room to check on her, she stated she took on e of her Lamictal pills that she had in her purse. * ED Nurse Note - Mignon Mejia RN - 10/23/2019 2:35 AM CDT Patient is able to talk in complete and coherent sentences. Patient was able to walk to the restroom without assistance in the restroom. Respirations even and u nlabored, aaox3, skin warm and dry. * ED Nurse Note - Mignon Mejia RN - 10/23/2019 12:30 AM CDT Patient assisted to the restroom by tech. Patient able to ambulate with minimal assistance. * ED Nurse Note - Mignon Mejia RN - 10/22/2019 10:25 PM CDT Patient resting without distress. Respirations even and unlabored. Will continue to monitor. * ED Nurse Note - Mignon Mejia RN - 10/22/2019 9:30 PM CDT MD at bedside to evaluate patient. Need to hold patient until she is sober and c an be discharged. * ED Nurse Note - Mignon Mejia RN - 10/22/2019 9:19 PM CDT Patient woke up when I went into her room, but fell back to sleep. No distress n oted, respirations even and unlabored. * ED Nurse Note - Mignon Mejia RN - 10/22/2019 8:17 PM CDT Patient sleeping without distress, respirations even and unlabored, skin warm an d dry. * ED Nurse Note - Mignon Mejia RN - 10/22/2019 7:22 PM CDT Introduced self to patient, provided patient with ice per request. * ED Nurse Note - Tamir Palma RN - 10/22/2019 7:10 PM CDT Report given to PAULA Crow. Dicussed original complaint, MAR, and plan of care. Receiving nurse verbalized understanding. * ED Nurse Note - Mignon Mejia RN - 10/22/2019 7:07 PM CDT Report from PAULA Garnett. Transfer of care. Patient currently in imaging. * ED Nurse Note - Tamir Palma RN - 10/22/2019 6:40 PM CDT Patient states she is unable to urinate at this time. * ED Nurse Note - Tamir Palma RN - 10/22/2019 5:47 PM CDT Connie Ascencio is a 34 year old female who presents to ED with complaints of genera lized rash x1.5 weeks, nausea, vomiting and constipation x2 weeks. Patient repor ts she is an alcoholic and has had 4 shots of vodka today, which is her usual. P atient has slurred speech and nystagmus. Oriented x4. documented in this encounter Plan of Treatment Health Maintenance Due Date Last Done Comments VARICELLA VACCINES (1 of 10/16/1988 2 - 2-dose childhood series) PNEUMOCOCCAL 0-64 YEARS 10/16/1993 COMBINED SERIES (1 of 1 - PPSV23) Depression Screening 1999 DTaP,Tdap,and Td Vaccines 10/16/2006 (1 - Tdap) PAP SMEAR 10/16/2008 INFLUENZA VACCINE (#1) 2019 02/03/2017 documented as of this encounter Procedures Comments Procedure Name Priority Date/Time Associated Diag nosis URINALYSIS STAT 10/22/2019 LLQ abdominal p ain 7:55 PM CDT GALV/CLC ONLY - URINE STAT 10/22/2019 LLQ abdo chris pain DRUG (IMMUNOASSAY) - 4 ER 7:[address] HEAD WO CONTRAST STAT 10/22/2019 Confusion 7:[address] ABDOMEN PELVIS W STAT 10/22/2019 LLQ abdomi nal pain CONTRAST 7:10 PM CDT CBC WITH DIFF STAT 10/22/2019 LLQ abdominal p ain 6:15 PM CDT ETHANOL STAT 10/22/2019 LLQ abdominal p ain 6:15 PM CDT BASIC METABOLIC PANEL STAT 10/22/2019 LLQ abdo chris pain (NA, K, CL, CO2, GLUCOSE, 6:15 PM CDT BUN, CREATININE, CA) HEPATIC FUNCTION PANEL STAT 10/22/2019 LLQ abd ominal pain (41560) (ALB,T.PRO,BILI 6:15 PM CDT T,BU/BC,ALT,AST,ALK PHOS) TEST, SERUM STAT 10/22/2019 LLQ abdo chris pain 6:15 PM CDT LIPASE STAT 10/22/2019 LLQ abdominal p ain 6:15 PM CDT EKG-12 LEAD STAT 10/22/2019 6:01 PM CDT documented in this encounter Results * Drug Screen ER (10/22/2019 7:55 PM CDT) AMPHET Negative Negative [facility] Cocaine Negative Negative [facility] Metabolite [facility] OPIATES Negative Negative [facility] THC Negative Negative [facility] Specimen Urine - URINE, CLEAN CATCH Narrative Performed At Urine Drug Cutoff Ranges [facility] Amphetamine: 1,000 ng/mL [facility] Cocaine: 150 ng/mL [place] Opiates: 300 ng/mL Cannabinoids: 50 ng/mL The results are to be used only for med ical (i.e., treatment) purposes. Unconfirmed screening results must not be used for non-medical purposes (e.g., employment testing, legal testing). Performing Organization Address [facility] Ph one Number [facility] CLIA: [id number] [place] [address] * Urinalysis (10/22/2019 7:55 PM CDT) APPEARANCE Clear Clear [facility] COLOR Straw (A) Yellow [facility] PH 7.0 4.8 - 8.0 [facility] SP GRAVITY 1.008 1.003 - 1.030 [facility] GLU U QUAL Normal Normal [facility] BLOOD 2+ (A) Negative [facility] KETONES Negative Negative [facility] PROTEIN Negative Negative [facility] UROBILIN Normal Normal [facility] BILIRUBIN Negative Negative [facility] NITRITE Negative Negative [facility] LEUK RIC Negative Negative [facility] RBC/HPF 1 0 - 3 HPF [facility] WBC/HPF <1 0 - 5 HPF [facility] BACTERIA Negative Negative [facility] Specimen Urine - URINE, CLEAN CATCH Performing Organization Address [facility] one Number [facility] CLIA: [id number] [place] [address] [facility] * CT Head W/O Contrast (10/22/2019 7:10 PM CDT) Specimen Impressions Performed At Impression: PACS/VR/DOSE 1. No intracranial hemorrhage or midlin e shift. 2. Mild cortical volume loss, greater t plata expected for the patient's age. RL: [id number] End of Report Narrative Performed At Exam: CT Head Without Contrast, 10/22/2019 6:00 PM. P ACS/VR/DOSE Ordering Physician: SARA SALCIDO. History: Head injury, headache. Technique: CT head was obtained without intravenous contrast. CT was performed according to ALARA (As Low As Reasonably Achievable). Comparison: None. Findings: There is no parenchymal hemorrhage, mas s effect, or midline shift. There are no extra-axial fluid collections. G ray-white matter differentiation is preserved. There is no acute major vasc ular territory infarct. Ventricles, basal cisterns, and cortica l sulci are mildly enlarged, consistent with cortical volume loss. Osseous structures are unremarkable. Vi sualized orbits, paranasal sinuses, and mastoid complexes are normal. Procedure Note [facility], Radiant Results Inft User - 10/22/2019 8:25 PM CDT Exam: CT Head Without Contrast, 10/22/2019 6:00 PM. Ordering Physician: SARA SALCIDO. History: Head injury, headache. Technique: CT head was obtained without intravenous contrast. CT was performed according to ALARA (As Low As Reasonably Achievable). Comparison: None. Findings: There is no parenchymal hemorrhage, mass effect, or midline shift. There are no extra-axial fluid collections. Pitts-white matter differentiation is preserved. There is no acute major vascular territory infarct. Ventricles, basal cisterns, and cortical sulci are mildly enlarged, consistent with cortical volume loss. Osseous structures are unremarkable. Visualized orbits, paranasal sinuses, and mastoid complexes are normal. IMPRESSION Impression: 1. No intracranial hemorrhage or midline shift. 2. Mild cortical volume loss, greater th an expected for the patient's age. RL: [id number] End of Report Performing Organization Address City/State[facility] Ph one Number PACS/VR/DOSE * CT ABDOMEN PELVIS W CONTRAST (10/22/2019 7:10 PM CDT) Specimen Impressions Performed At Impression: PACS/VR/DOSE 1. Mild descending colonic wall thicken ing may be due to nondistention or mild colitis. 2. Bladder wall thickening, which may b e seen with cystitis. Correlation with urinalysis is suggested. 3. Normal appendix. No free air or free fluid. RL: [id number] End of Report Narrative Performed At Exam: CT Abdomen and Pelvis With Contrast, 10/22/2019 6:00 PM. PACS/VR/DOSE Ordering Physician: SARA SALCIDO. History: Abdominal pain. Technique: CT abdomen and pelvis was ob tained with intravenous contrast. CT was performed according to ALARA (As Low As Reasonably Achievable). Comparison: None. Findings: Examination is slightly suboptimal due to motion. CT Abdomen: Lung bases are clear. Heart size is nor mal. Liver, gallbladder, pancreas, spleen, a nd adrenal glands are within normal limits. There is no pancreatic or bilia ry duct dilatation. Kidneys are symmetric in size, enhancem ent, and contrast excretion. There is no hydronephrosis or hydroureter. There is no free air or free fluid. The re is no abdominal adenopathy. Stomach is moderately distended with fl uid and/or ingested contents. Small bowel loops are unremarkable. There is no evidence of bowel obstruction. Appendix is normal. There may be mild d escending colonic wall thickening. Wall thickening is likely exaggerated b y nondistended state. Left posterior ninth and 10th rib fract ures are noted. CT Pelvis: Pelvic small bowel loops are unremarkab le. Urinary bladder demonstrates wall thick ening. Uterus and adnexa are not enlarged. There is no pelvic free fluid. There is no pelvic adenopathy. Osseous structures are unremarkable. Procedure Note [facility], Radiant Results Inft User - 10/22/2019 8:23 PM CDT Exam: CT Abdomen and Pelvis With Contrast, 10/22/2019 6:00 PM. Ordering Physician: SARA SALCIDO. History: Abdominal pain. Technique: CT abdomen and pelvis was obtained with intravenous contrast. CT was performed according to ALARA (As Low As Reasonably Achievable). Comparison: None. Findings: Examination is slightly suboptimal due to motion. CT Abdomen: Lung bases are clear. Heart size is normal. Liver, gallbladder, pancreas, spleen, and adrenal glands are within normal limits. There is no pancreatic or biliary duct dilatation. Kidneys are symmetric in size, enhancement, and contrast excretion. There is no hydronephrosis or hydroureter. There is no free air or free fluid. There is no abdominal adenopathy. Stomach is moderately distended with fluid and/or ingested contents. Small bowel loops are unremarkable. There is no evidence of bowel obstruction. Appendix is normal. There may be mild descending colonic wall thickening. Wall thickening is likely exaggerated by nondistended state. Left posterior ninth and 10th rib fractures are noted. CT Pelvis: Pelvic small bowel loops are unremarkable. Urinary bladder demonstrates wall thickening. Uterus and adnexa are not enlarged. There is no pelvic free fluid. There is no pelvic adenopathy. Osseous structures are unremarkable. IMPRESSION Impression: 1. Mild descending colonic wall thickeni ng may be due to nondistention or mild colitis. 2. Bladder wall thickening, which may be seen with cystitis. Correlation with urinalysis is suggested. 3. Normal appendix. No free air or free fluid. RL: [id number] End of Report Performing Organization Address [facility] one Number PACS/VR/DOSE * TEST, SERUM (10/22/2019 6:15 PM CDT) PREG SERUM Negative [facility] Specimen Blood - VENOUS Narrative Performed At Less than 10 IU/L. If low titer or ectopic pregnanc y is suspected, resubmit [facility] specimen in 48-72 hours. [facility] Performing Organization Address [facility] one Number [facility] CLIA: [id number] [place] [address] * Ethanol Level (10/22/2019 6:15 PM CDT) ALCOHOL 322 mg/dL [facility] Specimen Blood - VENOUS Narrative Performed At Toxic Greater than or equal to 80 mg/dL. [facility] NOTE: Whole blood values are approximately 10% to 15% lower than serum and [facility] plasma. CAMPUS Performing Organization Address [facility] one Number [facility] CLIA: [id number] [place] [address] * Lipase Serum (10/22/2019 6:15 PM CDT) LIPASE 131 0 - 220 U/L [facility] Specimen Blood - VENOUS Performing Organization Address [facility] one Number [facility] CLIA: [id number] [place] [address] * Hepatic Function Panel (ALB, T.PRO, BILI T, BU/BC, ALT, AST, ALK PHOS) (10/22/2019 6:15 PM CDT) TOTAL BILI 0.1 0.1 - 1.1 mg/dL [facility] BILI UNCON 0.2 0.1 - 1.1 mg/dL [facility] BILI CONJ 0.0 0.0 - 0.3 mg/dL [facility] T PROTEIN 6.4 6.3 - 8.2 g/dL [facility] ALBUMIN 3.6 3.5 - 5.0 g/dL [facility] ALK PHOS 75 34 - 122 U/L [facility] ALTv 59 (H) 5 - 35 U/L [facility] AST(SGOT) 99 (H) 13 - 40 U/L [facility] Specimen Blood - VENOUS Performing Organization Address City/[facility] Ph one Number [facility] CLIA: [id number] [place] [address] [phone] [place] [address] * Basic Metabolic Panel (NA, K, CL, CO2, GLUCOSE, BUN, CREATININE, CA) (10/22/2019 6:15 PM CDT) NA 142 135 - 145 mmol/L [facility] K 4.3 3.5 - 5.0 mmol/L [facility] CL 107 98 - 108 mmol/L [facility] CO2 TOTAL 28 23 - 31 mmol/L [facility] AGAP 7 2 - 16 [facility] BUN 10 7 - 23 mg/dL [facility] GLUCOSE 77 70 - 110 mg/dL [facility] CREATININE 0.79 0.50 - 1.04 mg/dL [facility] CALCIUM 7.9 (L) 8.6 - 10.6 mg/dL [facility] eGFR 84.3 mL/min/1.73m2 [facility] Calculation [facility] eGFR 102.2 mL/min/1.73m2 [facility] Calculation [facility] Specimen Blood - VENOUS Narrative Performed At [facility] of Glomerular Filtration Rate (GFR) and S taging of Kidney Disease* [facility] + + +------ + [facility] | GFR (mL/min/1.73 m2) | With Kidney Damage | [facility] Kidney Damage [place] + + -------+ + | >90 | S tage one | Normal + + -------+ + | 60-89 | St age two | Decreased GFR + + -------+ + | 30-59 | St age three | Stage three + + -------+ + | 15-29 | St age four | Stage four + + -------+ + | <15 (or dialysis) | Stage fi ve | Stage five + + -------+ + *Each stage assumes the associated GFR level has been in effect for at least three months. Stages 1 to 5, with or without kidney disease, indicate chronic kidney disease. Notes: Determination of stages one and two (with eGFR >59mL/min/1.73 m2) requires estimation of kidney damage fo r at least three months as defined by structural or functional abnormalities of the kidney, manifested by either: Pathological abnormalities or Markers o f kidney damage (including abnormalities in the composition of the blood or urin e or abnormalities in imaging tests). Performing Organization Address City/State/Zipcode Ph one Number [facility] CLIA: [id number] [place] [address] [phone] [place] [address] * CBC with Differential (10/22/2019 6:15 PM CDT) WBC 3.96 (L) 4.30 - 11.10 [facility] 10*3/L [facility] RBC 3.79 (L) 3.93 - 5.25 10*6/L [facility] HGB 12.3 11.6 - 15.0 g/dL [facility] RY [facility] HCT 35.6 (L) 35.7 - 45.2 % [facility] MCV 93.9 80.6 - 95.5 fL [facility] MCH 32.5 25.9 - 32.8 pg [facility] MCHC 34.6 31.6 - 35.1 g/dL [facility] RDW-SD 47.8 39.0 - 49.9 fL [facility] RDW-CV 14.0 12.0 - 15.5 % [facility] PLT 175 166 - 358 10*3/L [facility] MPV 9.0 (L) 9.5 - 12.9 fL [facility] NRBC/100 WBC 0.0 0.0 - 10.0 /100 WBCs [facility] NRBC x10^3 <0.01 10*3/L [facility] GRAN MAT (NEUT) 41.3 % [facility] % [facility] IMM GRAN % 0.30 % [facility] LYMPH % 49.0 % [facility] MONO % 6.1 % [facility] EOS % 2.5 % [facility] BASO % 0.8 % [facility] GRAN MAT 1.64 (L) 1.88 - 7.09 10*3/uL [facility] x10^3(ANC) [facility] IMM GRAN x10^3 <0.03 0.00 - 0.06 10*3/uL [facility] LYMPH x10^3 1.94 1.32 - 3.29 10*3/uL [facility] MONO x10^3 0.24 (L) 0.33 - 0.92 10*3/uL [facility] EOS x10^3 0.10 0.03 - 0.39 10*3/uL [facility] BASO x10^3 0.03 0.01 - 0.07 10*3/uL [facility] Specimen Blood - VENOUS Performing Organization Address City/State/Zipcode Ph one Number [facility] CLIA: [id number] [place] [address] [phone] [place] [address] documented in this encounter Visit Diagnoses Diagnosis ETOH abuse - Primary Alcohol abuse, unspecified LLQ abdominal pain Abdominal pain, left lower quadrant Confusion Unspecified psychosis Contact dermatitis, unspecified contact dermatitis type, unspecified trigger Chronic abdominal pain Abdominal pain, unspecified site documented in this encounter Administered Medications Action Date Dose Rate Site Medication Order MAR Action 10/22/2019 6:16 PM CDT 25 mg diphenhydrAMINE (BENADRYL) injection 25 Given mg 25 mg, Slow IV Push, ONCE, 1 dose, 10/22/19 at 1900, STAT 10/22/2019 7:05 PM CDT 100 mL iohexol (OMNIPAQUE 350 BULK-100 mL) Given injection 100 mL 100 mL, Intravenous, ONCE, 1 dose, 10/22/19 at 1915, Routine 10/22/2019 6:17 PM CDT 15 mg ketorolac (TORADOL) injection 15 mg Given 15 mg, Slow IV Push, ONCE, 1 dose, 10/22/19 at 1915, Routine, Faculty sada cantu approving Restricted medication: SHAKA TAYLOR 10/22/2019 6:18 PM CDT 1,000 mL 999 mL/hr NaCl 0.9% (NS) bolus infusion 1,000 mL New Bag at 999 mL/hr, 1,000 mL, IV Infusion, ONCE, 1 dose, 10/22/19 at 1815, CHINO 10/22/2019 6:16 PM CDT 100 mg thiamine (VITAMIN B1) tablet 100 mg Given 100 mg, Oral, ONCE NOW, 1 dose, 10/22/19 at 1900, Routine 10/22/2019 6:31 PM CDT 1,000 mcg vitamin B-12 (CYANOCOBALAMIN) tablet Given 1,000 mcg 1,000 mcg, Oral, ONCE NOW, 1 dose, 10/22/19 at 1900, Routine documented in this encounter
[2019-10-27 10:07] LABS: BASOPHILS # (AUTO) 0.1 (0.0-0.1); BASOPHILS % 0.9 % (0.0-1.0); EOSINOPHILS # (AUTO) 0.1 (0.0-0.4); EOSINOPHILS % 0.9 % (0.0-6.0); HEMATOCRIT 39.2 % (34.2-44.1); HEMOGLOBIN 13.3 g/dL (12.0-16.0); LYMPHOCYTES # (AUTO) 3.4 (1.0-3.2); MEAN CORPUSCULAR HEMOGLOBIN 31.9 pg (28-32); MEAN CORPUSCULAR HGB CONC 33.9 g/dL (31-35); MONOCYTES # (AUTO) 0.7 (0.2-0.8); MONOCYTES % 11.1 % (4.4-11.3); NEUTROPHILS # (AUTO) 2.2 (2.1-6.9); NEUTROPHILS % 33.8 % (38.7-80.0); PLATELET COUNT 173 x10e3/uL (140-360); RED BLOOD COUNT 4.17 x10e6/uL (3.6-5.1); RED CELL DISTRIBUTION WIDTH 14.2 % (11.7-14.4)
[2019-10-27 10:20] LABS: AMPHETAMINES SCREEN,URINE NEGATIVE (NEGATIVE); BENZODIAZEPINES SCREEN,URINE POSITIVE (NEGATIVE); PHENCYCLIDINE SCREEN,URINE NEGATIVE (NEGATIVE)
[2019-10-27 10:21] LABS: BILIRUBIN,URINE NEGATIVE (NEGATIVE); CLARITY,URINE CLEAR (CLEAR); COLOR,URINE YELLOW (YELLOW); KETONES,URINE NEGATIVE (NEGATIVE); LEUKOCYTE ESTERASE ,URINE NEGATIVE (NEGATIVE); NITRITE,URINE NEGATIVE (NEGATIVE); PREGNANCY TEST, URINE NEGATIVE (NEGATIVE); PROTEIN,URINE DIPSTICK NEGATIVE (NEGATIVE); URINE UROBILINOGEN 0.2 mg/dL (0.2 - 1)
[2019-10-27 10:23] LABS: INR 1.02; PROTHROMBIN TIME 13.9 seconds (11.9-14.5)
[2019-10-27 10:24] LABS: ALANINE AMINOTRANSFERASE 60 IU/L (0-55); ALBUMIN 3.8 g/dL (3.5-5.0); ALBUMIN/GLOBULIN RATIO 1.2 (0.8-2.0); ALKALINE PHOSPHATASE 122 IU/L (40-150); ANION GAP 17.5 mmol/L (8-16); BLOOD UREA NITROGEN 8 mg/dL (7-26); BUN/CREATININE RATIO 10 (6-25); CALCIUM 8.3 mg/dL (8.4-10.2); CARBON DIOXIDE 21 mmol/L (22-29); CHLORIDE 104 mmol/L (98-107); CREATINE KINASE 183 IU/L (29-168); CREATININE, SERUM 0.79 mg/dL (0.57-1.11); EST GLOMERULAR FILTRATION RATE > 60 ML/MIN (60-); GLUCOSE 82 mg/dL (74-118); PARTIAL THROMBOPLASTIN TIME 26.9 seconds (23.8-35.5); POTASSIUM 3.5 mmol/L (3.5-5.1); SODIUM 139 mmol/L (136-145)
[2019-10-27 10:26] LABS: BACTERIA,URINE FEW /HPF; EPITHELIAL CELLS,URINE FEW /LPF; RBC,URINE 0-5 /HPF (0-5); SALICYLATE < 5.0 mg/dL (0-30); WBC,URINE (MAN) 0-5 /HPF (0-5)
[2019-10-27 10:44] LABS: THYROID STIMULATING HORMONE 4.092 uIU/mL (0.350-4.940)
[2019-10-27] MEDS ORDERED: MULTIVITAMINS- 12 INJECTION 10 ML, FOLIC ACID MDV 5 MG, THIAMINE HCL INJ 100 MG in SODI... IV ONE (10:45)
[2019-10-27] MEDS ORDERED: LORAZEPAM INJ 2 MG/ML VIAL IV ONE ×3 (11:00→21:30)
--- NOTE | 2019-10-27 12:11 | Diagnostic Imaging Report ---
CT BRAIN WO HISTORY: Altered mental status COMPARISON: Head CT 01/10/2017 TECHNIQUE: Noncontrast axial scans were obtained from skull base to the vertex. Coronal and sagittal reconstructions obtained from the axial data. One or more of the following dose reduction techniques were used: Automated exposure control, adjustment of the mA and/or kV according to patient size, and/or utilization of iterative reconstruction technique. DISCUSSION: Scalp/Skull: Unremarkable. Brain sulci: Appropriate for patient's age. Ventricles: Normal in size and configuration. No hydrocephalus. Extra-axial spaces: No masses or fluid collections. Parenchyma: No abnormal densities. No mass, hemorrhage, or large vascular territory acute infarct. Dural sinuses: No abnormal densities. Sellar/Suprasellar region: Intact. Skull base: Intact. Incidental findings: None. IMPRESSION: No intracranial abnormalities. Signed by: Dr. Orlando Jane M.D. on 10/27/2019 12:08 PM
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
[2019-10-27] MEDS ORDERED: ONDANSETRON HCL INJ 2MG/ML 2ML 2 MG/ML VIAL IV ONE (19:02)
[2019-10-27] MEDS ORDERED: SODIUM CHLORIDE 0.9% 1000ML 1,000 ML ONE (19:11)
--- NOTE | 2019-10-27 21:35 | NUR ---
pt states that needs to take bedtime dose of lamictal. md informed. md states pt may take home medication at this time. pt medication administered at this time. medication verified by markings on tablet, matched to description on bottle. pt observed swallowing pill.
--- NOTE | 2019-10-27 22:20 | NUR ---
pt etoh level 84. md informed. states that pt medically cleared and to contact mat for eval. MAT called at this time.
--- NOTE | 2019-10-28 01:14 | NUR ---
MAT member in room assessing pt. at this time
--- NOTE | 2019-10-28 04:14 | NUR ---
pt awake and alert. no distress noted. pt cleared for discharge by MAT nurse and md. iv dc'd at this time. gauze dressing applied and secured tommy moss.
[2019-10-28 04:17] VITALS: BP 143/89
--- NOTE | 2019-10-28 04:21 | NUR ---
discussed need for follow-up. pt counselled on importance of seeking assistance for alcohol addiction. pt requesting librium to detox at home. md informed. pt informed that should seek professional treatment. pt verbalized understanding of instructions.
== END 2019-10-28 04:23 | disposition home or self-care (01) ==
LOC: ER 09:23
DX: F10.129 Alcohol abuse with intoxication, unspecified (principal); G40.909 Epilepsy, unspecified, not intractable, without status epilepticus; F17.210 Nicotine dependence, cigarettes, uncomplicated
CPT/HCPCS: 36415; 70450; 80053; 80307; 80320; 80329 ×2; 81001; 81025; 82550; 82553; 84443; 84484; 85025; 85610; 85730; 87086; 93005; 99284; J2060; J2405; J3411; J7030

== ENCOUNTER 2019-11-22 19:23 | Inpatient (IN) | payer SELFPAY ==
[~2019-11-22] VITALS: Ht 157.5 cm; Wt 57.6 kg
[~2019-11-22 19:23] MED LIST changes: +BACTRIM DS TAB1 EACH PO; +GABAPENTIN300 MG PO; +LAMICTAL100 MG PO; +LIBRAX CAPSULE1 EACH PO; +PREDNISONE10 MG PO; +PROMETHAZINE HC25 M1 PO; +PROZAC20 MG PO; +TRAZODONE HCL50 MG PO
[2019-11-22] MEDS ORDERED: PANTOPRAZOLE 40 MG 10ML VIAL IV STA (20:16)
[2019-11-22] MEDS ORDERED: ONDANSETRON HCL INJ 2MG/ML 2ML 2 MG/ML VIAL IV STA (20:16)
[2019-11-22] MEDS ORDERED: MULTIVITAMINS- 12 INJECTION 10 ML, FOLIC ACID MDV 5 MG, THIAMINE HCL INJ 100 MG in SODI... IV ONE (20:30)
[2019-11-22 21:11] LABS: BASOPHILS % 1.2 % (0.0-1.0); EOSINOPHILS % 0.6 % (0.0-6.0); HEMATOCRIT 40.9 % (34.2-44.1); HEMOGLOBIN 13.7 g/dL (12.0-16.0); LYMPHOCYTES # (AUTO) 1.3 (1.0-3.2); LYMPHOCYTES % 40.3 % (18.0-39.1); MEAN CORPUSCULAR HEMOGLOBIN 32.3 pg (28-32); MEAN CORPUSCULAR HGB CONC 33.5 g/dL (31-35); MEAN CORPUSCULAR VOLUME 96.5 fL (81-99); MONOCYTES # (AUTO) 0.4 (0.2-0.8); MONOCYTES % 13.5 % (4.4-11.3); NEUTROPHILS # (AUTO) 1.4 (2.1-6.9); NEUTROPHILS % 44.1 % (38.7-80.0); PLATELET COUNT 227 x10e3/uL (140-360); RED BLOOD COUNT 4.24 x10e6/uL (3.6-5.1); RED CELL DISTRIBUTION WIDTH 15.4 % (11.7-14.4)
[2019-11-22 21:20] LABS: INR 1.06; PROTHROMBIN TIME 14.3 seconds (11.9-14.5)
[2019-11-22 21:21] LABS: PARTIAL THROMBOPLASTIN TIME 29.3 seconds (23.8-35.5)
[2019-11-22 21:30] LABS: ALANINE AMINOTRANSFERASE 62 IU/L (0-55); ALBUMIN 4.3 g/dL (3.5-5.0); ALBUMIN/GLOBULIN RATIO 1.4 (0.8-2.0); ALKALINE PHOSPHATASE 230 IU/L (40-150); ANION GAP 17.9 mmol/L (8-16); BLOOD UREA NITROGEN 10 mg/dL (7-26); BUN/CREATININE RATIO 13 (6-25); CALCIUM 8.4 mg/dL (8.4-10.2); CARBON DIOXIDE 24 mmol/L (22-29); CHLORIDE 102 mmol/L (98-107); CREATININE, SERUM 0.76 mg/dL (0.57-1.11); EST GLOMERULAR FILTRATION RATE > 60 ML/MIN (60-); GLUCOSE 78 mg/dL (74-118); POTASSIUM 3.9 mmol/L (3.5-5.1); SODIUM 140 mmol/L (136-145)
--- NOTE | 2019-11-22 23:06 | Emergency Department Note ---
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 Historian: Patient Arrival Mode: Car Onset (how long ago): hour(s) (9) Location: UPPER ABD Quality: PAIN, N/V Radiation: Reports back Severity: severe Onset quality: sudden Duration (how long): hour(s) (9) Timing of current episode: constant Progression: worsening Chronicity: recurrent Context: Denies recent illness, Denies recent surgery, Denies trauma/injury Relieving factors: none Exacerbating factors: other (DRINKING ALCOHOL) Associated symptoms: Reports nausea/vomiting Past Medical/Family History Physician Review I have reviewed the patient's past medical and family history. Any updates have been documented here. Past Medical History Recent Fever: No Clinical Suspicion of Infectio: No New/Unexplained Change in Ment: No Past Medical History: Seizure Disorder, Other Mental Illness Other Medical History: HYPOGLYCEMIA OVARIAN CYST EPILEPSY ALCOHOLISM Other Surgery: X1 , D&C X1 Social History Smoking Cessation: Never Smoker Alcohol Use: Daily Any Illegal Drug Use: No Other Last Tetanus: UTD Any Pre-Existing Lines (PICC,: No Review of Systems Review of Systems Constitutional: Reports no symptoms EENTM: Reports no symptoms Cardiovascular: Reports no symptoms Respiratory: Reports no symptoms Gastrointestinal: Reports as per HPI Genitourinary: Reports no symptoms Musculoskeletal: Reports no symptoms Integumentary: Reports no symptoms Neurological: Reports no symptoms Psychological: Reports no symptoms Endocrine: Reports no symptoms Hematological/Lymphatic: Reports no symptoms Physical Exam Related Data Allergies: Coded Allergies: penicillin (Verified Allergy, Severe, 07/25/15) Triage Vital Signs Vital Signs Date Time Temp Pulse Resp B/P (MAP) Pulse Ox O2 Delivery O2 Flow Rate FiO2 11/22/19 20:11 97.6 87 20 119/86 99 Room Air Vital signs reviewed: Yes Physical Exam CONSTITUTIONAL Constitutional: Present well-developed, Present well-nourished, Present distressed (MILD) HENT HENT: Present normocephalic, Present atraumatic, Present oropharynx clear/moist, Present nose normal HENT L/R: Present left ext ear normal, Present right ext ear normal EYES Eyes: Reports PERRL, Reports conjunctivae normal NECK Neck: Present ROM normal PULMONARY Pulmonary: Present effort normal, Present breath sounds normal CARDIOVASCULAR Cardiovascular: Present regular rhythm, Present heart sounds normal, Present capillary refill normal, Present normal rate GASTROINTESTINAL Abdominal: Present soft, Present bowel sounds normal, Present tender (MODERATE EPIGASTRIC) GENITOURINARY Genitourinary: Present exam deferred SKIN Skin: Present warm, Present dry MUSCULOSKELETAL Musculoskeletal: Present ROM normal NEUROLOGICAL Neurological: Present alert, Present oriented x 3, Present no gross motor or sensory deficits PSYCHOLOGICAL Psychological: Present mood/affect normal, Present judgement normal Results Laboratory Result Diagram: 11/22/19204411/22/192044 Laboratory Laboratory Tests Test 11/22/19 20:45 White Blood Count 3.25 x10e3/uL (4.8-10.8) Red Blood Count 4.24 x10e6/uL (3.6-5.1) Hemoglobin 13.7 g/dL (12.0-16.0) Hematocrit 40.9 % (34.2-44.1) Mean Corpuscular Volume 96.5 fL (81-99) Mean Corpuscular Hemoglobin 32.3 pg (28-32) Mean Corpuscular Hemoglobin Concent 33.5 g/dL (31-35) Red Cell Distribution Width 15.4 % (11.7-14.4) Platelet Count 227 x10e3/uL (140-360) Neutrophils (%) (Auto) 44.1 % (38.7-80.0) Lymphocytes (%) (Auto) 40.3 % (18.0-39.1) Monocytes (%) (Auto) 13.5 % (4.4-11.3) Eosinophils (%) (Auto) 0.6 % (0.0-6.0) Basophils (%) (Auto) 1.2 % (0.0-1.0) Neutrophils # (Auto) 1.4 (2.1-6.9) Lymphocytes # (Auto) 1.3 (1.0-3.2) Monocytes # (Auto) 0.4 (0.2-0.8) Eosinophils # (Auto) 0.0 (0.0-0.4) Basophils # (Auto) 0.0 (0.0-0.1) Absolute Immature Granulocyte (auto 0.01 x10e3/uL (0-0.1) Prothrombin Time 14.3 seconds (11.9-14.5) Prothromb Time International Ratio 1.06 Activated Partial Thromboplast Time 29.3 seconds (23.8-35.5) Sodium Level 140 mmol/L (136-145) Potassium Level 3.9 mmol/L (3.5-5.1) Chloride Level 102 mmol/L (98-107) Carbon Dioxide Level 24 mmol/L (22-29) Anion Gap 17.9 mmol/L (8-16) Blood Urea Nitrogen 10 mg/dL (7-26) Creatinine 0.76 mg/dL (0.57-1.11) Estimat Glomerular Filtration Rate > 60 ML/MIN (60-) BUN/Creatinine Ratio 13 (6-25) Glucose Level 78 mg/dL (74-118) Calcium Level 8.4 mg/dL (8.4-10.2) Total Bilirubin 0.9 mg/dL (0.2-1.2) Aspartate Amino Transf (AST/SGOT) 93 IU/L (5-34) Alanine Aminotransferase (ALT/SGPT) 62 IU/L (0-55) Alkaline Phosphatase 230 IU/L (40-150) Total Protein 7.4 g/dL (6.5-8.1) Albumin 4.3 g/dL (3.5-5.0) Globulin 3.1 g/dL (2.3-3.5) Albumin/Globulin Ratio 1.4 (0.8-2.0) Amylase Level 25 U/L (25-125) Lipase 147 U/L (8-78) Ethyl Alcohol Level 90.8 mg/dL (0.0-10.0) Lab results reviewed: Yes Assessment & Plan Medical Decision Making MDM PT WITH ETOH ABUSE WITH UPPER ABD PAIN AND VOMITING WITH STREAKS OF BLOOD IN VOMIT CBC, CMP, AMYLASE, LIPASE ORDERED TO EVAL FOR ANEMIA, PANCREATITIS, ELECTROLYTE ABNORMALITY BANANA BAG 1 LITER IV ORDERED PROTONIX 40 MG IV ORDERED I SPOKE WITH DR ORR AND DR Konstantin SHAIKH, PLACE IN OBS, NPO, HYDRATE Assessment & Plan Final Impression: (1) ETOH abuse (2) Acute alcoholic pancreatitis (3) Gastritis, alcoholic Depart Disposition: ADMITTED Last Vital Signs Date Time Temp Pulse Resp B/P (MAP) Pulse Ox O2 Delivery O2 Flow Rate FiO2 11/22/19 20:11 97.6 87 20 119/86 99 Room Air Home Meds Reported Medications Chlordiazepoxide/Clidinium Br (LIBRAX CAPSULE) 1 Each Capsule, 1 CAP PO AC, CAP 10/27/19 Promethazine Hcl (PROMETHAZINE HCL) 25 Mg Tablet, PO DAILY, TAB 10/27/19 Prednisone (PREDNISONE) 10 Mg Tab, 10 MG PO DAILY, #30 TAB 10/27/19 Sulfamethoxazole/Trimethoprim (BACTRIM DS TABLET) 1 Each Tablet, 1 TAB PO BID, #60 TAB 10/27/19 Lamotrigine (LAMICTAL) 100 Mg Tab, 100 MG PO BID 10/27/19 Fluoxetine Hcl (PROZAC) 20 Mg Capsule, 20 MG PO DAILY, #30 TAB 10/27/19 Trazodone Hcl (TRAZODONE HCL) 50 Mg Tablet, 100 MG PO HS, #30 TAB 10/27/19 Gabapentin (GABAPENTIN) 300 Mg Capsule, 600 MG PO BID, #60 CAP 10/27/19 Medications in the ED Ondansetron HCl 4 mg NOW STAT IV Last administered on 11/22/19at 21:21; Admin Dose 4 MG; Start 11/22/19 at 20:16; Stop 11/22/19 at 20:19; Status DC Multivitamins 10 ml/Folic Acid 5 mg/Thiamine HCl 100 mg/Sodium Chloride 1,012 ml @ 250 mls/hr Q4H3M ONCE IV Last administered on 11/22/19at 21:21; Admin Dose 250 MLS/HR; Start 11/22/19 at 20:30; Stop 11/23/19 at 00:32 Pantoprazole Sodium 40 mg NOW STAT IV Last administered on 11/22/19at 21:21; Ad min Dose 40 MG; Start 11/22/19 at 20:16; Stop 11/22/19 at 20:19; Status DC SHAKA MACK MD Nov 22, 2019 23:06
[2019-11-23] VITALS (11 sets, daily range): BP systolic 129–171; BP diastolic 89–104
[2019-11-23] MEDS: SODIUM CHLORIDE 0.9% 1000ML 1,000 ML IV SCH ×3 (00:48→10:29)
[2019-11-23] MEDS: MORPHINE SULFATE 2 MG/ML SYR 1ML IV PRN ×5 (00:49→23:48)
[2019-11-23] MEDS: ONDANSETRON HCL INJ 2MG/ML 2ML 2 MG/ML VIAL IV PRN ×4 (00:49→17:46)
[2019-11-23 00:58] LABS: AMPHETAMINES SCREEN,URINE NEGATIVE (NEGATIVE); BENZODIAZEPINES SCREEN,URINE POSITIVE (NEGATIVE); BILIRUBIN,URINE NEGATIVE (NEGATIVE); CLARITY,URINE CLEAR (CLEAR); COLOR,URINE YELLOW (YELLOW); KETONES,URINE TRACE (NEGATIVE); LEUKOCYTE ESTERASE ,URINE NEGATIVE (NEGATIVE); NITRITE,URINE NEGATIVE (NEGATIVE); PHENCYCLIDINE SCREEN,URINE NEGATIVE (NEGATIVE); PREGNANCY TEST, URINE NEGATIVE (NEGATIVE); PROTEIN,URINE DIPSTICK NEGATIVE (NEGATIVE); URINE UROBILINOGEN 0.2 mg/dL (0.2 - 1)
[2019-11-23 01:01] LABS: BACTERIA,URINE FEW /HPF; EPITHELIAL CELLS,URINE RARE /LPF; WBC,URINE (MAN) 0-5 /HPF (0-5)
--- NOTE | 2019-11-23 01:45 | NUR ---
Received report from ER nurse Melita LACEY.
--- NOTE | 2019-11-23 02:00 | NUR ---
Patient arrived to floor via stretcher.
--- NOTE | 2019-11-23 03:25 | NUR ---
Patient c/o of gregory and sz. Call MD to get order.
[2019-11-23] MEDS ORDERED: CHLORDIAZEPOXIDE 100 MG AMP IV PRN (03:45)
--- NOTE | 2019-11-23 03:48 | NUR ---
Dr Cotto on the floor. Informed him of consult. Dr Cotto states ok he will see her tomorrow.
--- NOTE | 2019-11-23 04:06 | NUR ---
Received orders for meds from Rafat. Asst patient to bathroom. Inform patient to call due to pt very unsteady on her feet. Walker given to patient to ast with ambulating. Will give meds once patient return to bed.
[2019-11-23] MEDS: LORAZEPAM INJ 2 MG/ML VIAL IV PRN ×3 (04:25→13:00)
[2019-11-23 05:41] LABS: ALANINE AMINOTRANSFERASE 51 IU/L (0-55); ALBUMIN 3.5 g/dL (3.5-5.0); ALBUMIN/GLOBULIN RATIO 1.2 (0.8-2.0); ALKALINE PHOSPHATASE 196 IU/L (40-150); AMYLASE 13 U/L (25-125); ANION GAP 15.6 mmol/L (8-16); BLOOD UREA NITROGEN 5 mg/dL (7-26); BUN/CREATININE RATIO 7 (6-25); CALCIUM 7.2 mg/dL (8.4-10.2); CARBON DIOXIDE 18 mmol/L (22-29); CHLORIDE 109 mmol/L (98-107); CREATININE, SERUM 0.69 mg/dL (0.57-1.11); EST GLOMERULAR FILTRATION RATE > 60 ML/MIN (60-); GLUCOSE 61 mg/dL (74-118); LIPASE 9 U/L (8-78); POTASSIUM 4.6 mmol/L (3.5-5.1); SODIUM 138 mmol/L (136-145)
[2019-11-23] MEDS: SODIUM CHLORIDE 0.45% 1,000 ML IV SCH ×2 (05:55→17:20)
[2019-11-23 06:12] LABS: BASOPHILS # (AUTO) 0.1 (0.0-0.1); BASOPHILS % 1.6 % (0.0-1.0); EOSINOPHILS # (AUTO) 0.1 (0.0-0.4); EOSINOPHILS % 1.3 % (0.0-6.0); LYMPHOCYTES # (AUTO) 1.9 (1.0-3.2); LYMPHOCYTES % 50.3 % (18.0-39.1); MEAN CORPUSCULAR HEMOGLOBIN 32.4 pg (28-32); MEAN CORPUSCULAR HGB CONC 33.3 g/dL (31-35); MEAN CORPUSCULAR VOLUME 97.3 fL (81-99); MONOCYTES # (AUTO) 0.5 (0.2-0.8); MONOCYTES % 13.6 % (4.4-11.3); NEUTROPHILS # (AUTO) 1.3 (2.1-6.9); NEUTROPHILS % 33.2 % (38.7-80.0); PLATELET COUNT 178 x10e3/uL (140-360)
[2019-11-23] MEDS: LAMOTRIGINE 100 MG TAB PO SCH ×2 (09:22→17:20)
[2019-11-23] MEDS: PANTOPRAZOLE 40 MG 10ML VIAL IV SCH ×2 (09:22→17:20)
--- NOTE | 2019-11-23 09:53 | NUR ---
GAVE PACKET OF INFORMATION WITH [employer] [employer] FOR ASSISTANCE WITH LOW TO NO INCOME TO PATIENT. RESOURCES THAT PATIENT MAY BE ABLE TO FOLLOW UP UPON DISCHARGE. PT EDUCATED ON EACH RESOURCE AND UNDERSTANDING HOW TO FOLLOW UP TO SEE IF QUALIFIED FOR EACH RESOURCE.
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
--- OUTSIDE RECORDS SUMMARY | 2019-11-23 10:36 | XMS REPORT | Continuity of Care Document ---
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 Comment: Critical Result(s) called to Teo at _12/09/2018 01:53 by_HC. Read back OK. [facility] TOXICOLOGY Salicylate Lvl 3.2 0.0 - 30.0 12/09/2018 [facility] URINE AND STOOL UA Color Colorless *NA* (12/09/18 1:12 AM) Yellow 12/09/2018 [facility] URINE AND STOOL UA Turbidity Clear (12/09/18 1:12 AM) Clear 12/09/2018 [facility] URINE AND STOOL UA Spec Grav 1.002 <=1.030 12/09/2018 [facility] URINE AND STOOL UA pH 7.0 5.0 - 8.0 12/09/2018 [facility] URINE AND STOOL UA Protein Negative mg/dL Negative mg/dL 12/09/2018 [facility] URINE AND STOOL UA Glucose Negative mg/dL Negative mg/dL 12/09/2018 [facility] URINE AND STOOL UA Bili Negative *NA* (12/09/18 1:12 AM) Negative 12/09/2018 [facility] URINE AND STOOL UA Blood Negative (12/09/18 1:12 AM) Negative 12/09/2018 [facility] URINE AND STOOL UA Nitrite Negative (12/09/18 1:12 AM) Negative 12/09/2018 [facility] URINE AND STOOL UA Leuk Est Negative (12/09/18 1:12 AM) Negative 12/09/2018 [facility] URINE AND STOOL UA Sq Epi Occasional /LPF Few /LPF 12/09/2018 [facility] URINE AND STOOL UA Ketones Negative 12/09/2018 [facility] URINE AND STOOL UA Urobilinogen <=1.0 mg/dL 0.1 - 1.0 12/09/2018 [facility] URINE AND STOOL UA Color Light Yellow *NA* (12/05/18 3:52 PM) Yellow 12/05/2018 [facility] URINE AND STOOL UA Turbidity Clear (12/05/18 3:52 PM) Clear 12/05/2018 [facility] URINE AND STOOL UA Spec Grav 1.008 <=1.030 12/05/2018 [facility] URINE AND STOOL UA pH 6.0 5.0 - 8.0 12/05/2018 [facility] URINE AND STOOL UA Protein Negative mg/dL Negative mg/dL 12/05/2018 [facility] URINE AND STOOL UA Glucose Negative mg/dL Negative mg/dL 12/05/2018 [facility] URINE AND STOOL UA Bili Negative *NA* (12/05/18 3:52 PM) Negative 12/05/2018 [facility] URINE AND STOOL UA Blood Negative (12/05/18 3:52 PM) Negative 12/05/2018 [facility] URINE AND STOOL UA Nitrite Negative (12/05/18 3:52 PM) Negative 12/05/2018 [facility] URINE AND STOOL UA Leuk Est Negative (12/05/18 3:52 PM) Negative 12/05/2018 [facility] URINE AND STOOL Micro? Not Indicated *NA* (12/05/18 3:52 PM) 12/05/2018 [facility] URINE AND STOOL UA Ketones Negative 12/05/2018 [facility] URINE AND STOOL UA Urobilinogen <=1.0 mg/dL 0.1 - 1.0 12/05/2018 [facility] DRUG SCREEN U Amph Scr Nega tive *NA* (12/05/18 11:30 AM) Negative 12/05/2018 [facility] DRUG SCREEN U Buffy Scr Nega tive *NA* (12/05/18 11:30 AM) Negative 12/05/2018 [facility] DRUG SCREEN U Benzodiaz Scr Nega tive *NA* (12/05/18 11:30 AM) Negative 12/05/2018 [facility] DRUG SCREEN U Cocaine Scr Nega tive *NA* (12/05/18 11:30 AM) Negative 12/05/2018 [facility] DRUG SCREEN U Cannab Scr Nega tive *NA* (12/05/18 11:30 AM) Negative 12/05/2018 [facility] DRUG SCREEN U Opiate Scr Nega tive *NA* (12/05/18 11:30 AM) Negative 12/05/2018 [facility] DRUG SCREEN U Phencyclidine Scr Nega tive *NA* (12/05/18 11:30 AM) Negative 12/05/2018 [facility] DRUG SCREEN UDS Note See Note (12/05/18 11:30 AM) 12/05/2018 [facility] CHEM PANEL Glucose Lvl 86 70 - 99 12/05/2018 [facility] CHEM PANEL BUN 3 7 - 22 12/05/2018 [facility] CHEM PANEL Creatinine Lvl 0.60 0.50 - 1.40 12/05/2018 [facility] CHEM PANEL Sodium Lvl 143 135 - 145 12/05/2018 [facility] CHEM PANEL Potassium Lvl 3.6 3.5 - 5.1 12/05/2018 [facility] CHEM PANEL Chloride Lvl 107 95 - 109 12/05/2018 [facility] CHEM PANEL CO2 27 24 - 32 12/05/2018 [facility] CHEM PANEL Calcium Lvl 9.3 8.5 - 10.5 12/05/2018 [facility] CHEM PANEL Total Protein 8.2 6.4 - 8.4 12/05/2018 [facility] CHEM PANEL Albumin Lvl 4.0 3.5 - 5.0 12/05/2018 [facility] CHEM PANEL ALT 33 0 - 65 12/05/2018 [facility] CHEM PANEL AST 28 0 - 37 12/05/2018 [facility] CHEM PANEL Alk Phos 138 39 - 136 12/05/2018 [facility] CHEM PANEL Bili Total 0.4 0.2 - 1.3 12/05/2018 [facility] CHEM PANEL eGFR 122 12/05/2018 Result Comment: [...] should be multiplied by the estimated BMI. [facility] CHEM PANEL AGAP 12.6 10.0 - 20.0 12/05/2018 [facility] CHEM PANEL B/C Ratio 5 6 - 25 12/05/2018 [facility] CHEM PANEL Globulin 4.2 2.7 - 4.2 12/05/2018 [facility] CHEM PANEL A/G Ratio 1.0 0.7 - 1.6 12/05/2018 [facility] ENDOCRINOLOGY S Preg Ne gative *NA* (12/05/18 10:08 AM) Negative 12/05/2018 [facility] HEMATOLOGY WBC 7.8 3.7 - 10.4 12/05/2018 [facility] HEMATOLOGY RBC 4.26 4.20 - 5.40 12/05/2018 [facility] HEMATOLOGY Hgb 13.6 12.0 - 16.0 12/05/2018 [facility] HEMATOLOGY Hct 40.2 36.0 - 48.0 12/05/2018 [facility] HEMATOLOGY MCV 94.3 80.0 - 98.0 12/05/2018 [facility] HEMATOLOGY MCH 31.8 27.0 - 31.0 12/05/2018 [facility] HEMATOLOGY MCHC 33.8 32.0 - 36.0 12/05/2018 [facility] HEMATOLOGY RDW 15.5 11.5 - 14.5 12/05/2018 [facility] HEMATOLOGY Platelet 392 133 - 450 12/05/2018 [facility] HEMATOLOGY MPV 6.5 7.4 - 10.4 12/05/2018 [facility] HEMATOLOGY Segs 65.7 45.0 - 75.0 12/05/2018 [facility] HEMATOLOGY Lymphocytes 30.3 20.0 - 40.0 12/05/2018 [facility] HEMATOLOGY Monocytes 2.9 2.0 - 12.0 12/05/2018 [facility] HEMATOLOGY Eosinophils 0.3 0.0 - 4.0 12/05/2018 [facility] HEMATOLOGY Basophils 0.8 0.0 - 1.0 12/05/2018 [facility] HEMATOLOGY Neutrophils # 5.1 1.5 - 8.1 12/05/2018 [facility] HEMATOLOGY Lymphocytes # 2.4 1.0 - 5.5 12/05/2018 [facility] HEMATOLOGY Monocytes # 0.2 0.0 - 0.8 12/05/2018 [facility] HEMATOLOGY Basophils # 0.1 0.0 - 0.2 12/05/2018 [facility] TOXICOLOGY Acetaminoph Lvl <2 (12/05/18 10:08 AM) 10 - 20 12/05/2018 [facility] TOXICOLOGY Ethanol Lvl 359 12/05/2018 Result Comment: Critical Result(s) called to Sara Burgos at 12/05/2018 10:40 by KGF. Read back OK. [facility] TOXICOLOGY Etoh (%) 0.359 12/05/2018 Result Comment: Critical Result(s) called to Sara Burgos at 12/05/2018 10:40 by KGF. Read back OK. [facility] TOXICOLOGY Salicylate Lvl 3.9 0.0 - 30.0 12/05/2018 [facility] TOXICOLOGY Ethanol Lvl 377 10/18/2018 Result Comment: Critical Result(s) called to Lisha CRANE at 10/18/2018 04:50 by . Read back OK. [facility] TOXICOLOGY Etoh (%) 0.377 10/18/2018 [facility] CHEM PANEL Glucose Lvl 72 70 - 99 10/18/2018 [facility] CHEM PANEL BUN 5 7 - 22 10/18/2018 [facility] CHEM PANEL Creatinine Lvl 0.67 0.50 - 1.40 10/18/2018 [facility] CHEM PANEL Sodium Lvl 147 135 - 145 10/18/2018 [facility] CHEM PANEL Potassium Lvl 3.3 3.5 - 5.1 10/18/2018 [facility] CHEM PANEL Chloride Lvl 111 95 - 109 10/18/2018 [facility] CHEM PANEL CO2 26 24 - 32 10/18/2018 [facility] CHEM PANEL Calcium Lvl 8.4 8.5 - 10.5 10/18/2018 [facility] CHEM PANEL eGFR 117 10/18/2018 Result Comment: [...] be multiplied by the estimated BMI. [facility] CHEM PANEL AGAP 13.3 10.0 - 20.0 10/18/2018 [facility] ENDOCRINOLOGY S Preg Ne gative *NA* (10/18/18 1:40 AM) Negative 10/18/2018 [facility] HEMATOLOGY WBC 4.2 3.7 - 10.4 10/18/2018 [facility] HEMATOLOGY RBC 4.38 4.20 - 5.40 10/18/2018 [facility] HEMATOLOGY Hgb 14.0 12.0 - 16.0 10/18/2018 [facility] HEMATOLOGY Hct 42.1 36.0 - 48.0 10/18/2018 [facility] HEMATOLOGY MCV 96.0 80.0 - 98.0 10/18/2018 [facility] HEMATOLOGY MCH 32.0 27.0 - 31.0 10/18/2018 [facility] HEMATOLOGY MCHC 33.4 32.0 - 36.0 10/18/2018 [facility] HEMATOLOGY RDW 15.6 11.5 - 14.5 10/18/2018 [facility] HEMATOLOGY Platelet 187 133 - 450 10/18/2018 [facility] HEMATOLOGY MPV 7.8 7.4 - 10.4 10/18/2018 [facility] HEMATOLOGY Segs 40.6 45.0 - 75.0 10/18/2018 [facility] HEMATOLOGY Lymphocytes 44.7 20.0 - 40.0 10/18/2018 [facility] HEMATOLOGY Monocytes 12.4 2.0 - 12.0 10/18/2018 [facility] HEMATOLOGY Eosinophils 1.3 0.0 - 4.0 10/18/2018 [facility] HEMATOLOGY Basophils 1.0 0.0 - 1.0 10/18/2018 [facility] HEMATOLOGY Neutrophils # 1.7 1.5 - 8.1 10/18/2018 [facility] HEMATOLOGY Lymphocytes # 1.9 1.0 - 5.5 10/18/2018 [facility] HEMATOLOGY Monocytes # 0.5 0.0 - 0.8 10/18/2018 [facility] HEMATOLOGY Eosinophils # 0.1 0.0 - 0.5 10/18/2018 [facility] URINE AND STOOL UA Urobilinogen <=1.0 mg/dL 0.1 - 1.0 09/25/2018 [facility] URINE AND STOOL UA Ketones Negative 09/25/2018 [facility] URINE AND STOOL UA Color LYYELLOW 09/25/2018 [facility] URINE AND STOOL UA WBC <1 0 - 5 09/25/2018 [facility] URINE AND STOOL UA RBC <1 0 - 2 09/25/2018 [facility] URINE AND STOOL UA Bili Negative *NA* (09/24/18 11:27 PM) Negative 09/25/2018 [facility] URINE AND STOOL UA Glucose Negative mg/dL Negative mg/dL 09/25/2018 [facility] URINE AND STOOL UA Sq Epi Occasional /LPF Few /LPF 09/25/2018 [facility] URINE AND STOOL UA Leuk Est Negative (09/24/18 11:27 PM) Negative 09/25/2018 [facility] URINE AND STOOL UA Nitrite Negative (09/24/18 11:27 PM) Negative 09/25/2018 [facility] URINE AND STOOL UA Blood Negative (09/24/18 11:27 PM) Negative 09/25/2018 [facility] URINE AND STOOL UA Protein Negative mg/dL Negative mg/dL 09/25/2018 [facility] URINE AND STOOL UA pH 6.0 5.0 - 8.0 09/25/2018 [facility] URINE AND STOOL UA Spec Grav 1.003 <=1.030 09/25/2018 [facility] URINE AND STOOL UA Turbidity Clear (09/24/18 11:27 PM) Clear 09/25/2018 [facility] URINE CHEM U Preg Negat jaime (09/24/18 11:27 PM) Negative 09/25/2018 [facility] ELECTROLYTES AGAP 12.2 10.0 - 20.0 09/25/2018 [facility] ELECTROLYTES B/C Ratio 7 6 - 25 09/25/2018 [facility] ELECTROLYTES A/G Ratio 1.1 0.7 - 1.6 09/25/2018 [facility] ELECTROLYTES Globulin 3.8 2.7 - 4.2 09/25/2018 [facility] ELECTROLYTES eGFR 123 09/25/2018 Result [...] be multiplied by the estimated BMI. [facility] ELECTROLYTES AST 106 0 - 37 09/25/2018 [facility] ELECTROLYTES Bili Total 0.2 0.2 - 1.3 09/25/2018 [facility] ELECTROLYTES Alk Phos 141 39 - 136 09/25/2018 [facility] ELECTROLYTES Chloride Lvl 113 95 - 109 09/25/2018 [facility] ELECTROLYTES Calcium Lvl 8.7 8.5 - 10.5 09/25/2018 [facility] ELECTROLYTES CO2 25 24 - 32 09/25/2018 [facility] ELECTROLYTES ALT 98 0 - 65 09/25/2018 [facility] ELECTROLYTES Albumin Lvl 4.0 3.5 - 5.0 09/25/2018 [facility] ELECTROLYTES Total Protein 7.8 6.4 - 8.4 09/25/2018 [facility] ELECTROLYTES BUN 4 7 - 22 09/25/2018 [facility] ELECTROLYTES Potassium Lvl 4.2 3.5 - 5.1 09/25/2018 [facility] ELECTROLYTES Sodium Lvl 146 135 - 145 09/25/2018 [facility] ELECTROLYTES Creatinine Lvl 0.5 9 0.50 - 1.40 09/25/2018 [facility] ELECTROLYTES Glucose Lvl 77 70 - 99 09/25/2018 [facility] HEMATOLOGY Neutrophils # 2.2 1.5 - 8.1 09/25/2018 [facility] HEMATOLOGY Monocytes # 0.4 0.0 - 0.8 09/25/2018 [facility] HEMATOLOGY Basophils 0.2 0.0 - 1.0 09/25/2018 [facility] HEMATOLOGY Monocytes 9.2 2.0 - 12.0 09/25/2018 [facility] HEMATOLOGY Eosinophils 1.8 0.0 - 4.0 09/25/2018 [facility] HEMATOLOGY Segs 47.8 45.0 - 75.0 09/25/2018 [facility] HEMATOLOGY Lymphocytes 41.0 20.0 - 40.0 09/25/2018 [facility] HEMATOLOGY Eosinophils # 0.1 0.0 - 0.5 09/25/2018 [facility] HEMATOLOGY Lymphocytes # 1.9 1.0 - 5.5 09/25/2018 [facility] HEMATOLOGY MPV 7.6 7.4 - 10.4 09/25/2018 [facility] HEMATOLOGY MCHC 33.6 32.0 - 36.0 09/25/2018 [facility] HEMATOLOGY MCH 31.8 27.0 - 31.0 09/25/2018 [facility] HEMATOLOGY Hct 43.5 36.0 - 48.0 09/25/2018 [facility] HEMATOLOGY Hgb 14.6 12.0 - 16.0 09/25/2018 [facility] HEMATOLOGY MCV 94.6 80.0 - 98.0 09/25/2018 [facility] HEMATOLOGY RDW 15.1 11.5 - 14.5 09/25/2018 [facility] HEMATOLOGY Platelet 241 133 - 450 09/25/2018 [facility] HEMATOLOGY WBC 4.6 3.7 - 10.4 09/25/2018 [facility] HEMATOLOGY RBC 4.60 4.20 - 5.40 09/25/2018 [facility] CHEM PANEL eGFR 120 09/09/2018 Result Comment: [...] should be multiplied by the estimated BMI. [facility] CHEM PANEL CO2 30 24 - 32 09/09/2018 [facility] CHEM PANEL Chloride Lvl 110 95 - 109 09/09/2018 [facility] CHEM PANEL Potassium Lvl 3.7 3.5 - 5.1 09/09/2018 [facility] CHEM PANEL Calcium Lvl 8.3 8.5 - 10.5 09/09/2018 [facility] CHEM PANEL Sodium Lvl 145 135 - 145 09/09/2018 [facility] CHEM PANEL Creatinine Lvl 0.64 0.50 - 1.40 09/09/2018 [facility] CHEM PANEL BUN 3 7 - 22 09/09/2018 [facility] CHEM PANEL Glucose Lvl 77 70 - 99 09/09/2018 [facility] CHEM PANEL AGAP 8.7 10.0 - 20.0 09/09/2018 [facility] DRUG SCREEN U Cocaine Scr Nega tive *NA* (09/09/18 2:42 AM) Negative 09/09/2018 [facility] DRUG SCREEN UDS Note See Note (09/09/18 2:42 AM) 09/09/2018 [facility] DRUG SCREEN U Phencyclidine Scr Nega tive *NA* (09/09/18 2:42 AM) Negative 09/09/2018 [facility] DRUG SCREEN U Opiate Scr Nega tive *NA* (09/09/18 2:42 AM) Negative 09/09/2018 [facility] DRUG SCREEN U Cannab Scr Nega tive *NA* (09/09/18 2:42 AM) Negative 09/09/2018 [facility] DRUG SCREEN U Amph Scr Nega tive *NA* (09/09/18 2:42 AM) Negative 09/09/2018 [facility] DRUG SCREEN U Buffy Scr Nega tive *NA* (09/09/18 2:42 AM) Negative 09/09/2018 [facility] DRUG SCREEN U Benzodiaz Scr Posi tive *ABN* (09/09/18 2:42 AM) Negative 09/09/2018 [facility] ENDOCRINOLOGY S Preg Ne gative *NA* (09/09/18 2:42 AM) Negative 09/09/2018 [facility] HEMATOLOGY Monocytes 11.7 2.0 - 12.0 09/09/2018 [facility] HEMATOLOGY Lymphocytes 58.0 20.0 - 40.0 09/09/2018 [facility] HEMATOLOGY Basophils 1.3 0.0 - 1.0 09/09/2018 [facility] HEMATOLOGY Eosinophils 2.1 0.0 - 4.0 09/09/2018 [facility] HEMATOLOGY Lymphocytes # 2.1 1.0 - 5.5 09/09/2018 [facility] HEMATOLOGY Eosinophils # 0.1 0.0 - 0.5 09/09/2018 [facility] HEMATOLOGY Monocytes # 0.4 0.0 - 0.8 09/09/2018 [facility] HEMATOLOGY Segs 26.9 45.0 - 75.0 09/09/2018 [facility] HEMATOLOGY Neutrophils # 1.0 1.5 - 8.1 09/09/2018 [facility] HEMATOLOGY MPV 7.8 7.4 - 10.4 09/09/2018 [facility] HEMATOLOGY Platelet 141 133 - 450 09/09/2018 [facility] HEMATOLOGY RDW 14.8 11.5 - 14.5 09/09/2018 [facility] HEMATOLOGY MCV 94.8 80.0 - 98.0 09/09/2018 [facility] HEMATOLOGY MCH 31.4 27.0 - 31.0 09/09/2018 [facility] HEMATOLOGY MCHC 33.1 32.0 - 36.0 09/09/2018 [facility] HEMATOLOGY Hgb 14.5 12.0 - 16.0 09/09/2018 [facility] HEMATOLOGY Hct 43.8 36.0 - 48.0 09/09/2018 [facility] HEMATOLOGY RBC 4.62 4.20 - 5.40 09/09/2018 [facility] HEMATOLOGY WBC 3.7 3.7 - 10.4 09/09/2018 [facility] TOXICOLOGY Ethanol Lvl 345 09/09/2018 Result Comment: Critical Result(s) called to PAULA Laureano at 09/09/2018 03:21_ by_CG. Read back OK. [facility] TOXICOLOGY Etoh (%) 0.345 09/09/2018 [facility] URINE AND STOOL UA Color LYYELLOW 09/09/2018 [facility] URINE AND STOOL UA Ketones Negative 09/09/2018 [facility] URINE AND STOOL UA Urobilinogen <=1.0 mg/dL 0.1 - 1.0 09/09/2018 [facility] URINE AND STOOL UA Bili Negative *NA* (09/09/18 2:42 AM) Negative 09/09/2018 [facility] URINE AND STOOL UA Protein Negative mg/dL Negative mg/dL 09/09/2018 [facility] URINE AND STOOL UA Glucose Negative mg/dL Negative mg/dL 09/09/2018 [facility] URINE AND STOOL UA Blood Negative (09/09/18 2:42 AM) Negative 09/09/2018 [facility] URINE AND STOOL UA Nitrite Negative (09/09/18 2:42 AM) Negative 09/09/2018 [facility] URINE AND STOOL UA Leuk Est Negative (09/09/18 2:42 AM) Negative 09/09/2018 [facility] URINE AND STOOL UA Sq Epi Occasional /LPF Few /LPF 09/09/2018 [facility] URINE AND STOOL UA Mucus Few /LPF None Seen /LPF 09/09/2018 [facility] URINE AND STOOL UA WBC 1 0 - 5 09/09/2018 [facility] URINE AND STOOL UA RBC <1 0 - 2 09/09/2018 [facility] URINE AND STOOL UA Turbidity Clear (09/09/18 2:42 AM) Clear 09/09/2018 [facility] URINE AND STOOL UA Spec Grav 1.004 <=1.030 09/09/2018 [facility] URINE AND STOOL UA pH 6.0 5.0 - 8.0 09/09/2018 [facility] DRUG SCREEN U Benzodiaz Scr Posi tive *ABN* (08/23/18 7:55 PM) Negative 08/24/2018 [facility] DRUG SCREEN U Phencyclidine Scr Nega tive *NA* (08/23/18 7:55 PM) Negative 08/24/2018 [facility] DRUG SCREEN U Buffy Scr Nega tive *NA* (08/23/18 7:55 PM) Negative 08/24/2018 [facility] DRUG SCREEN UDS Note See Note (08/23/18 7:55 PM) 08/24/2018 [facility] DRUG SCREEN U Cocaine Scr Nega tive *NA* (08/23/18 7:55 PM) Negative 08/24/2018 [facility] DRUG SCREEN U Cannab Scr Nega tive *NA* (08/23/18 7:55 PM) Negative 08/24/2018 [facility] DRUG SCREEN U Opiate Scr Nega tive *NA* (08/23/18 7:55 PM) Negative 08/24/2018 [facility] DRUG SCREEN U Amph Scr Nega tive *NA* (08/23/18 7:55 PM) Negative 08/24/2018 [facility] URINE AND STOOL UA WBC 1 0 - 5 08/24/2018 [facility] URINE AND STOOL UA Sq Epi Occasional /LPF Few /LPF 08/24/2018 [facility] URINE AND STOOL UA Urobilinogen <=1.0 mg/dL 0.1 - 1.0 08/24/2018 [facility] URINE AND STOOL UA Color LYYELLOW 08/24/2018 [facility] URINE AND STOOL UA Ketones Negative 08/24/2018 [facility] URINE AND STOOL UA RBC <1 0 - 2 08/24/2018 [facility] URINE AND STOOL UA Nitrite Negative (08/23/18 7:55 PM) Negative 08/24/2018 [facility] URINE AND STOOL UA Blood Negative (08/23/18 7:55 PM) Negative 08/24/2018 [facility] URINE AND STOOL UA Leuk Est Negative (08/23/18 7:55 PM) Negative 08/24/2018 [facility] URINE AND STOOL UA pH 6.0 5.0 - 8.0 08/24/2018 [facility] URINE AND STOOL UA Protein Negative mg/dL Negative mg/dL 08/24/2018 [facility] URINE AND STOOL UA Bili Negative *NA* (08/23/18 7:55 PM) Negative 08/24/2018 [facility] URINE AND STOOL UA Spec Grav 1.004 <=1.030 08/24/2018 [facility] URINE AND STOOL UA Turbidity Clear (08/23/18 7:55 PM) Clear 08/24/2018 [facility] URINE AND STOOL UA Glucose Negative mg/dL Negative mg/dL 08/24/2018 [facility] CHEM PANEL B/C Ratio 8 6 - 25 08/24/2018 [facility] CHEM PANEL AGAP 13.7 10.0 - 20.0 08/24/2018 [facility] CHEM PANEL A/G Ratio 1.1 0.7 - 1.6 08/24/2018 [facility] CHEM PANEL Globulin 3.6 2.7 - 4.2 08/24/2018 [facility] CHEM PANEL eGFR 120 08/24/2018 Result Comment: [...] should be multiplied by the estimated BMI. [facility] CHEM PANEL ALT 73 0 - 65 08/24/2018 [facility] CHEM PANEL Albumin Lvl 3.8 3.5 - 5.0 08/24/2018 [facility] CHEM PANEL Total Protein 7.4 6.4 - 8.4 08/24/2018 [facility] CHEM PANEL Alk Phos 128 39 - 136 08/24/2018 [facility] CHEM PANEL AST 61 0 - 37 08/24/2018 [facility] CHEM PANEL Bili Total 0.2 0.2 - 1.3 08/24/2018 [facility] CHEM PANEL Glucose Lvl 94 70 - 99 08/24/2018 [facility] CHEM PANEL Creatinine Lvl 0.64 0.50 - 1.40 08/24/2018 [facility] CHEM PANEL BUN 5 7 - 22 08/24/2018 [facility] CHEM PANEL Chloride Lvl 111 95 - 109 08/24/2018 [facility] CHEM PANEL Potassium Lvl 3.7 3.5 - 5.1 08/24/2018 [facility] CHEM PANEL Sodium Lvl 145 135 - 145 08/24/2018 [facility] CHEM PANEL Calcium Lvl 8.5 8.5 - 10.5 08/24/2018 [facility] CHEM PANEL CO2 24 24 - 32 08/24/2018 [facility] ENDOCRINOLOGY S Preg Ne gative *NA* (08/23/18 7:33 PM) Negative 08/24/2018 [facility] HEMATOLOGY Eosinophils # 0.1 0.0 - 0.5 08/24/2018 [facility] HEMATOLOGY Basophils # 0.1 0.0 - 0.2 08/24/2018 [facility] HEMATOLOGY Neutrophils # 2.3 1.5 - 8.1 08/24/2018 [facility] HEMATOLOGY Lymphocytes # 1.6 1.0 - 5.5 08/24/2018 [facility] HEMATOLOGY Monocytes # 0.5 0.0 - 0.8 08/24/2018 [facility] HEMATOLOGY Eosinophils 2.4 0.0 - 4.0 08/24/2018 [facility] HEMATOLOGY Basophils 1.4 0.0 - 1.0 08/24/2018 [facility] HEMATOLOGY Monocytes 10.8 2.0 - 12.0 08/24/2018 [facility] HEMATOLOGY Lymphocytes 34.9 20.0 - 40.0 08/24/2018 [facility] HEMATOLOGY Segs 50.5 45.0 - 75.0 08/24/2018 [facility] HEMATOLOGY MCV 94.4 80.0 - 98.0 08/24/2018 [facility] HEMATOLOGY Hct 42.3 36.0 - 48.0 08/24/2018 [facility] HEMATOLOGY MCHC 33.1 32.0 - 36.0 08/24/2018 [facility] HEMATOLOGY MCH 31.2 27.0 - 31.0 08/24/2018 [facility] HEMATOLOGY WBC 4.6 3.7 - 10.4 08/24/2018 [facility] HEMATOLOGY Hgb 14.0 12.0 - 16.0 08/24/2018 [facility] HEMATOLOGY RBC 4.48 4.20 - 5.40 08/24/2018 [facility] HEMATOLOGY Platelet 224 133 - 450 08/24/2018 [facility] HEMATOLOGY RDW 13.7 11.5 - 14.5 08/24/2018 [facility] HEMATOLOGY MPV 7.8 7.4 - 10.4 08/24/2018 [facility] TOXICOLOGY Etoh (%) 0.369 08/24/2018 [facility] TOXICOLOGY Ethanol Lvl 369 08/24/2018 Result Comment: Critical Result(s) called to PAULA Osborn at 08/23/2018 20:18_ by_CG. Read back OK. [facility] TOXICOLOGY Salicylate Lvl 3.4 0.0 - 30.0 08/24/2018 [facility] TOXICOLOGY Acetaminoph Lvl <2 (08/23/18 7:33 PM) 10 - 20 08/24/2018 [facility] DRUG SCREEN UDS Note See Note (08/01/18 9:39 PM) 08/02/2018 [facility] DRUG SCREEN U Opiate Scr Nega tive *NA* (08/01/18 9:39 PM) Negative 08/02/2018 [facility] DRUG SCREEN U Cocaine Scr Nega tive *NA* (08/01/18 9:39 PM) Negative 08/02/2018 [facility] DRUG SCREEN U Benzodiaz Scr Nega tive *NA* (08/01/18 9:39 PM) Negative 08/02/2018 [facility] DRUG SCREEN U Amph Scr Nega tive *NA* (08/01/18 9:39 PM) Negative 08/02/2018 [facility] DRUG SCREEN U Buffy Scr Nega tive *NA* (08/01/18 9:39 PM) Negative 08/02/2018 [facility] DRUG SCREEN U Cannab Scr Nega tive *NA* (08/01/18 9:39 PM) Negative 08/02/2018 [facility] DRUG SCREEN U Phencyclidine Scr Nega tive *NA* (08/01/18 9:39 PM) Negative 08/02/2018 [facility] URINE AND STOOL UA Leuk Est Negative (08/01/18 9:39 PM) Negative 08/02/2018 [facility] URINE AND STOOL UA WBC <1 0 - 5 08/02/2018 [facility] URINE AND STOOL UA RBC <1 0 - 2 08/02/2018 [facility] URINE AND STOOL UA Blood Negative (08/01/18 9:39 PM) Negative 08/02/2018 [facility] URINE AND STOOL UA Nitrite Negative (08/01/18 9:39 PM) Negative 08/02/2018 [facility] URINE AND STOOL UA pH 6.0 5.0 - 8.0 08/02/2018 [facility] URINE AND STOOL UA Ketones Trace mg/dL Negative mg/dL 08/02/2018 [facility] URINE AND STOOL UA Bili Negative *NA* (08/01/18 9:39 PM) Negative 08/02/2018 [facility] URINE AND STOOL UA Protein Negative mg/dL Negative mg/dL 08/02/2018 [facility] URINE AND STOOL UA Turbidity Clear (08/01/18 9:39 PM) Clear 08/02/2018 [facility] URINE AND STOOL UA Spec Grav 1.004 <=1.030 08/02/2018 [facility] URINE AND STOOL UA Color LYYELLOW 08/02/2018 [facility] URINE AND STOOL UA Sq Epi None Seen 08/02/2018 [facility] URINE AND STOOL UA Glucose 50mg/dl 08/02/2018 [facility] URINE AND STOOL UA Urobilinogen <=1.0 mg/dL 0.1 - 1.0 08/02/2018 [facility] TOXICOLOGY Etoh (%) 0.419 08/02/2018 [facility] TOXICOLOGY Ethanol Lvl 419 08/02/2018 Result Comment: Critical Result(s) called to Clif Gwendolyn at 08/01/2018 22:07 by RP. Read back OK. [facility] CARDIAC ENZYMES Total CK 86 12 - 191 08/02/2018 [facility] ELECTROLYTES AGAP 19.6 10.0 - 20.0 08/02/2018 [facility] ELECTROLYTES B/C Ratio 11 6 - 25 08/02/2018 [facility] ELECTROLYTES A/G Ratio 1.1 0.7 - 1.6 08/02/2018 [facility] ELECTROLYTES Globulin 3.5 2.7 - 4.2 08/02/2018 [facility] ELECTROLYTES eGFR 115 08/02/2018 Result [...] should be multiplied by the estimated BMI. [facility] ELECTROLYTES BUN 8 7 - 22 08/02/2018 [facility] ELECTROLYTES Creatinine Lvl 0.7 1 0.50 - 1.40 08/02/2018 [facility] ELECTROLYTES Glucose Lvl 64 70 - 99 08/02/2018 [facility] ELECTROLYTES Bili Total 0.2 0.2 - 1.3 08/02/2018 [facility] ELECTROLYTES Albumin Lvl 3.7 3.5 - 5.0 08/02/2018 [facility] ELECTROLYTES Total Protein 7.2 6.4 - 8.4 08/02/2018 [facility] ELECTROLYTES Alk Phos 93 39 - 136 08/02/2018 [facility] ELECTROLYTES ALT 28 0 - 65 08/02/2018 [facility] ELECTROLYTES AST 32 0 - 37 08/02/2018 [facility] ELECTROLYTES Sodium Lvl 146 135 - 145 08/02/2018 [facility] ELECTROLYTES Potassium Lvl 3.6 3.5 - 5.1 08/02/2018 [facility] ELECTROLYTES Calcium Lvl 8.7 8.5 - 10.5 08/02/2018 [facility] ELECTROLYTES Chloride Lvl 108 95 - 109 08/02/2018 [facility] ELECTROLYTES CO2 22 24 - 32 08/02/2018 [facility] ENDOCRINOLOGY S Preg Ne gative *NA* (08/01/18 9:04 PM) Negative 08/02/2018 [facility] HEMATOLOGY Basophils # 0.1 0.0 - 0.2 08/02/2018 [facility] HEMATOLOGY Eosinophils # 0.1 0.0 - 0.5 08/02/2018 [facility] HEMATOLOGY Monocytes # 0.3 0.0 - 0.8 08/02/2018 [facility] HEMATOLOGY Lymphocytes 24.4 20.0 - 40.0 08/02/2018 [facility] HEMATOLOGY Segs 69.9 45.0 - 75.0 08/02/2018 [facility] HEMATOLOGY Eosinophils 0.8 0.0 - 4.0 08/02/2018 [facility] HEMATOLOGY Lymphocytes # 2.1 1.0 - 5.5 08/02/2018 [facility] HEMATOLOGY Neutrophils # 5.9 1.5 - 8.1 08/02/2018 [facility] HEMATOLOGY Basophils 1.0 0.0 - 1.0 08/02/2018 [facility] HEMATOLOGY Monocytes 3.9 2.0 - 12.0 08/02/2018 [facility] HEMATOLOGY Hgb 12.8 12.0 - 16.0 08/02/2018 [facility] HEMATOLOGY RDW 13.3 11.5 - 14.5 08/02/2018 [facility] HEMATOLOGY Platelet 340 133 - 450 08/02/2018 [facility] HEMATOLOGY MCHC 33.8 32.0 - 36.0 08/02/2018 [facility] HEMATOLOGY MPV 7.4 7.4 - 10.4 08/02/2018 [facility] HEMATOLOGY MCH 31.7 27.0 - 31.0 08/02/2018 [facility] HEMATOLOGY Hct 38.0 36.0 - 48.0 08/02/2018 [facility] HEMATOLOGY MCV 93.9 80.0 - 98.0 08/02/2018 [facility] HEMATOLOGY RBC 4.05 4.20 - 5.40 08/02/2018 [facility] HEMATOLOGY WBC 8.4 3.7 - 10.4 08/02/2018 [facility] CHEM PANEL Calcium Lvl 8.7 8.5 - 10.5 07/30/2018 [facility] CHEM PANEL Chloride Lvl 109 95 - 109 07/30/2018 [facility] CHEM PANEL Potassium Lvl 3.8 3.5 - 5.1 07/30/2018 [facility] CHEM PANEL Sodium Lvl 146 135 - 145 07/30/2018 [facility] CHEM PANEL eGFR 120 07/30/2018 Result [...] should be multiplied by the estimated BMI. [facility] CHEM PANEL AST 18 0 - 37 07/30/2018 [facility] CHEM PANEL Creatinine Lvl 0.64 0.50 - 1.40 07/30/2018 [facility] CHEM PANEL Albumin Lvl 4.0 3.5 - 5.0 07/30/2018 [facility] CHEM PANEL CO2 27 24 - 32 07/30/2018 [facility] CHEM PANEL Glucose Lvl 90 70 - 99 07/30/2018 [facility] CHEM PANEL BUN 4 7 - 22 07/30/2018 [facility] CHEM PANEL Bili Total 0.2 0.2 - 1.3 07/30/2018 [facility] CHEM PANEL Total Protein 7.6 6.4 - 8.4 07/30/2018 [facility] CHEM PANEL Alk Phos 79 39 - 136 07/30/2018 [facility] CHEM PANEL ALT 31 0 - 65 07/30/2018 [facility] CHEM PANEL B/C Ratio 6 6 - 25 07/30/2018 [facility] CHEM PANEL AGAP 13.8 10.0 - 20.0 07/30/2018 [facility] CHEM PANEL Globulin 3.6 2.7 - 4.2 07/30/2018 [facility] CHEM PANEL A/G Ratio 1.1 0.7 - 1.6 07/30/2018 [facility] DRUG SCREEN U Buffy Scr Nega tive *NA* (07/30/18 4:59 PM) Negative 07/30/2018 [facility] DRUG SCREEN U Amph Scr Nega tive *NA* (07/30/18 4:59 PM) Negative 07/30/2018 [facility] DRUG SCREEN U Benzodiaz Scr Nega tive *NA* (07/30/18 4:59 PM) Negative 07/30/2018 [facility] DRUG SCREEN U Cannab Scr Nega tive *NA* (07/30/18 4:59 PM) Negative 07/30/2018 [facility] DRUG SCREEN U Cocaine Scr Nega tive *NA* (07/30/18 4:59 PM) Negative 07/30/2018 [facility] DRUG SCREEN U Opiate Scr Nega tive *NA* (07/30/18 4:59 PM) Negative 07/30/2018 [facility] DRUG SCREEN U Phencyclidine Scr Nega tive *NA* (07/30/18 4:59 PM) Negative 07/30/2018 [facility] DRUG SCREEN UDS Note See Note (07/30/18 4:59 PM) 07/30/2018 [facility] HEMATOLOGY Basophils 0.6 0.0 - 1.0 07/30/2018 [facility] HEMATOLOGY Neutrophils # 5.0 1.5 - 8.1 07/30/2018 [facility] HEMATOLOGY Lymphocytes # 3.1 1.0 - 5.5 07/30/2018 [facility] HEMATOLOGY Monocytes # 0.3 0.0 - 0.8 07/30/2018 [facility] HEMATOLOGY Eosinophils # 0.1 0.0 - 0.5 07/30/2018 [facility] HEMATOLOGY Basophils # 0.1 0.0 - 0.2 07/30/2018 [facility] HEMATOLOGY Eosinophils 1.1 0.0 - 4.0 07/30/2018 [facility] HEMATOLOGY Monocytes 3.1 2.0 - 12.0 07/30/2018 [facility] HEMATOLOGY Lymphocytes 36.3 20.0 - 40.0 07/30/2018 [facility] HEMATOLOGY Segs 58.9 45.0 - 75.0 07/30/2018 [facility] HEMATOLOGY RDW 13.7 11.5 - 14.5 07/30/2018 [facility] HEMATOLOGY MCHC 33.0 32.0 - 36.0 07/30/2018 [facility] HEMATOLOGY MPV 7.5 7.4 - 10.4 07/30/2018 [facility] HEMATOLOGY Platelet 360 133 - 450 07/30/2018 [facility] HEMATOLOGY WBC 8.5 3.7 - 10.4 07/30/2018 [facility] HEMATOLOGY MCV 93.7 80.0 - 98.0 07/30/2018 [facility] HEMATOLOGY Hct 41.6 36.0 - 48.0 07/30/2018 [facility] HEMATOLOGY MCH 30.9 27.0 - 31.0 07/30/2018 [facility] HEMATOLOGY Hgb 13.7 12.0 - 16.0 07/30/2018 [facility] HEMATOLOGY RBC 4.44 4.20 - 5.40 07/30/2018 [facility] TOXICOLOGY Etoh (%) 0.346 07/30/2018 [facility] TOXICOLOGY Ethanol Lvl 346 07/30/2018 Result Comment: Critical Result(s) called to mainor kramer at _07/30/2018 17:43 by_[facility]. Read back OK. [facility] TOXICOLOGY Acetaminoph Lvl <2 (07/30/18 4:59 PM) 10 - 20 07/30/2018 [facility] TOXICOLOGY Salicylate Lvl 4.2 0.0 - 30.0 07/30/2018 [facility] CHEM PANEL eGFR 123 07/27/2018 Result [...] should be multiplied by the estimated BMI. [facility] CHEM PANEL Calcium Lvl 8.2 8.5 - 10.5 07/27/2018 [facility] CHEM PANEL CO2 26 24 - 32 07/27/2018 [facility] CHEM PANEL Chloride Lvl 108 95 - 109 07/27/2018 [facility] CHEM PANEL Potassium Lvl 3.6 3.5 - 5.1 07/27/2018 [facility] CHEM PANEL Sodium Lvl 141 135 - 145 07/27/2018 [facility] CHEM PANEL Glucose Lvl 101 70 - 99 07/27/2018 [facility] CHEM PANEL BUN 6 7 - 22 07/27/2018 [facility] CHEM PANEL Creatinine Lvl 0.59 0.50 - 1.40 07/27/2018 [facility] CHEM PANEL AGAP 10.6 10.0 - 20.0 07/27/2018 [facility] HEMATOLOGY Lymphocytes 17.3 20.0 - 40.0 07/27/2018 [facility] HEMATOLOGY Segs 68.6 45.0 - 75.0 07/27/2018 [facility] HEMATOLOGY Lymphocytes # 2.3 1.0 - 5.5 07/27/2018 [facility] HEMATOLOGY Monocytes # 1.8 0.0 - 0.8 07/27/2018 [facility] HEMATOLOGY Basophils 0.2 0.0 - 1.0 07/27/2018 [facility] HEMATOLOGY Neutrophils # 9.0 1.5 - 8.1 07/27/2018 [facility] HEMATOLOGY Monocytes 13.6 2.0 - 12.0 07/27/2018 [facility] HEMATOLOGY Eosinophils 0.3 0.0 - 4.0 07/27/2018 [facility] HEMATOLOGY MCHC 34.2 32.0 - 36.0 07/27/2018 [facility] HEMATOLOGY MCH 31.6 27.0 - 31.0 07/27/2018 [facility] HEMATOLOGY MPV 8.7 7.4 - 10.4 07/27/2018 [facility] HEMATOLOGY RDW 13.2 11.5 - 14.5 07/27/2018 [facility] HEMATOLOGY Platelet 244 133 - 450 07/27/2018 [facility] HEMATOLOGY MCV 92.4 80.0 - 98.0 07/27/2018 [facility] HEMATOLOGY WBC 13.1 3.7 - 10.4 07/27/2018 [facility] HEMATOLOGY Hct 37.3 36.0 - 48.0 07/27/2018 [facility] HEMATOLOGY RBC 4.03 4.20 - 5.40 07/27/2018 [facility] HEMATOLOGY Hgb 12.7 12.0 - 16.0 07/27/2018 [facility] [facility] URINE CHEM U Preg Negat jaime (07/26/18 8:34 PM) Negative 07/27/2018 [facility] BLOOD BANK RESULTS Antibody Scrn Negative (07/26/18 8:17 AM) 07/26/2018 [facility] BLOOD BANK RESULTS ABO/Rh A POS 07/26/2018 [facility] ELECTROLYTES AGAP 13.8 10.0 - 20.0 07/26/2018 [facility] ELECTROLYTES eGFR 120 07/26/2018 Result Comment: The [...] should be multiplied by the estimated BMI. [facility] ELECTROLYTES Calcium Lvl 9.0 8.5 - 10.5 07/26/2018 [facility] ELECTROLYTES Potassium Lvl 3.8 3.5 - 5.1 07/26/2018 [facility] ELECTROLYTES Sodium Lvl 138 135 - 145 07/26/2018 [facility] ELECTROLYTES Chloride Lvl 107 95 - 109 07/26/2018 [facility] ELECTROLYTES CO2 21 24 - 32 07/26/2018 [facility] ELECTROLYTES Creatinine Lvl 0.6 5 0.50 - 1.40 07/26/2018 [facility] ELECTROLYTES BUN 7 7 - 22 07/26/2018 [facility] ELECTROLYTES Glucose Lvl 78 70 - 99 07/26/2018 [facility] HEMATOLOGY MCV 92.8 80.0 - 98.0 07/26/2018 [facility] HEMATOLOGY Hct 41.8 36.0 - 48.0 07/26/2018 [facility] HEMATOLOGY Platelet 226 133 - 450 07/26/2018 [facility] HEMATOLOGY RDW 13.4 11.5 - 14.5 07/26/2018 [facility] HEMATOLOGY MCHC 33.8 32.0 - 36.0 07/26/2018 [facility] HEMATOLOGY MCH 31.4 27.0 - 31.0 07/26/2018 [facility] HEMATOLOGY MPV 8.3 7.4 - 10.4 07/26/2018 [facility] HEMATOLOGY Hgb 14.1 12.0 - 16.0 07/26/2018 [facility] HEMATOLOGY WBC 5.6 3.7 - 10.4 07/26/2018 [facility] HEMATOLOGY RBC 4.50 4.20 - 5.40 07/26/2018 [facility] HEMATOLOGY Monocytes 14.5 2.0 - 12.0 07/26/2018 [facility] HEMATOLOGY Basophils 0.8 0.0 - 1.0 07/26/2018 [facility] HEMATOLOGY Eosinophils 1.9 0.0 - 4.0 07/26/2018 [facility] HEMATOLOGY Monocytes # 0.8 0.0 - 0.8 07/26/2018 [facility] HEMATOLOGY Neutrophils # 2.8 1.5 - 8.1 07/26/2018 [facility] HEMATOLOGY Lymphocytes # 1.9 1.0 - 5.5 07/26/2018 [facility] HEMATOLOGY Eosinophils # 0.1 0.0 - 0.5 07/26/2018 [facility] HEMATOLOGY Segs 49.7 45.0 - 75.0 07/26/2018 [facility] HEMATOLOGY Lymphocytes 33.1 20.0 - 40.0 07/26/2018 [facility] CHEM PANEL eGFR 113 05/04/2018 Result Comment: [...] should be multiplied by the estimated BMI. [facility] CHEM PANEL AGAP 13.9 10.0 - 20.0 05/04/2018 [facility] CHEM PANEL B/C Ratio 8 6 - 25 05/04/2018 [facility] CHEM PANEL Calcium Lvl 9.3 8.5 - 10.5 05/04/2018 [facility] CHEM PANEL Glucose Lvl 86 70 - 99 05/04/2018 [facility] CHEM PANEL BUN 6 7 - 22 05/04/2018 [facility] CHEM PANEL Chloride Lvl 103 95 - 109 05/04/2018 [facility] CHEM PANEL CO2 25 24 - 32 05/04/2018 [facility] CHEM PANEL Sodium Lvl 138 135 - 145 05/04/2018 [facility] CHEM PANEL Potassium Lvl 3.9 3.5 - 5.1 05/04/2018 [facility] CHEM PANEL Creatinine Lvl 0.72 0.50 - 1.40 05/04/2018 [facility] CHEM PANEL Alk Phos 94 39 - 136 05/04/2018 [facility] CHEM PANEL AST 30 0 - 37 05/04/2018 [facility] CHEM PANEL ALT 62 0 - 65 05/04/2018 [facility] CHEM PANEL A/G Ratio 1.1 0.7 - 1.6 05/04/2018 [facility] CHEM PANEL Bili Total 0.3 0.2 - 1.3 05/04/2018 [facility] CHEM PANEL Globulin 3.8 2.7 - 4.2 05/04/2018 [facility] CHEM PANEL Albumin Lvl 4.1 3.5 - 5.0 05/04/2018 [facility] CHEM PANEL Total Protein 7.9 6.4 - 8.4 05/04/2018 [facility] ENDOCRINOLOGY hCG Tot 6162 05/04/2018 [facility] HEMATOLOGY MCV 89.4 80.0 - 98.0 05/04/2018 [facility] HEMATOLOGY Hgb 14.3 12.0 - 16.0 05/04/2018 [facility] HEMATOLOGY Hct 42.3 36.0 - 48.0 05/04/2018 [facility] HEMATOLOGY RDW 14.2 11.5 - 14.5 05/04/2018 [facility] HEMATOLOGY Platelet 277 133 - 450 05/04/2018 [facility] HEMATOLOGY MCHC 33.9 32.0 - 36.0 05/04/2018 [facility] HEMATOLOGY MCH 30.3 27.0 - 31.0 05/04/2018 [facility] HEMATOLOGY MPV 7.7 7.4 - 10.4 05/04/2018 [facility] HEMATOLOGY WBC 10.4 3.7 - 10.4 05/04/2018 [facility] HEMATOLOGY RBC 4.73 4.20 - 5.40 05/04/2018 [facility] URINE AND STOOL UA Mucus None Seen (05/03/18 10:05 PM) None Seen 05/04/2018 [facility] URINE AND STOOL Micro? Performed (05/03/18 10:05 PM) 05/04/2018 [facility] URINE AND STOOL UA Bacteria Occasional /HPF None Seen /HPF 05/04/2018 [facility] URINE AND STOOL UA RBC 1-2 05/04/2018 [facility] URINE AND STOOL UA Urobilinogen 0.2 0.1 - 1.0 05/04/2018 [facility] URINE AND STOOL UA Bili Negative *NA* (05/03/18 10:05 PM) Negative 05/04/2018 [facility] URINE AND STOOL UA Blood Large *ABN* (05/03/18 10:05 PM) Negative 05/04/2018 [facility] URINE AND STOOL UA Sq Epi Occasional /LPF Few /LPF 05/04/2018 [facility] URINE AND STOOL UA WBC 3-5 /HPF None Seen /HPF 05/04/2018 [facility] URINE AND STOOL UA Protein Negative (05/03/18 10:05 PM) Negative 05/04/2018 [facility] URINE AND STOOL UA pH 8.0 5.0 - 8.0 05/04/2018 [facility] URINE AND STOOL UA Glucose Negative (05/03/18 10:05 PM) Negative 05/04/2018 [facility] URINE AND STOOL UA Turbidity Clear (05/03/18 10:05 PM) Clear 05/04/2018 [facility] URINE AND STOOL UA Spec Grav <=1.005 *NA* (05/03/18 10:05 PM) <=1.030 05/04/2018 [facility] URINE AND STOOL UA Ketones Negative *NA* (05/03/18 10:05 PM) Negative 05/04/2018 [facility] URINE AND STOOL UA Nitrite Negative (05/03/18 10:05 PM) Negative 05/04/2018 [facility] URINE AND STOOL UA Leuk Est Trace *ABN* (05/03/18 10:05 PM) Negative 05/04/2018 [facility] URINE AND STOOL UA Color Yellow *NA* (05/03/18 10:05 PM) Yellow 05/04/2018 [facility] URINE CHEM U Preg Posit jaime *ABN* (05/03/18 10:05 PM) Negative 05/04/2018 [facility] DRUG SCREEN UDS Note See Note (10/31/17 [...] tive *NA* (10/31/17 12:05 PM) Negative 10/31/2017 [facility] TOXICOLOGY Ethanol Lvl 206 10/31/2017 [facility] TOXICOLOGY Etoh (%) 0.206 10/31/2017 [facility] ELECTROLYTES CO2 28 24 - 32 10/31/2017 [facility] ELECTROLYTES Calcium Lvl 7.9 8.5 - 10.5 10/31/2017 [facility] ELECTROLYTES Chloride Lvl 107 95 - 109 10/31/2017 [facility] ELECTROLYTES Potassium Lvl 4.2 3.5 - 5.1 10/31/2017 [facility] ELECTROLYTES Total Protein 8.2 6.4 - 8.4 10/31/2017 [facility] ELECTROLYTES Creatinine Lvl 0.6 2 0.50 - 1.40 10/31/2017 [facility] ELECTROLYTES BUN 3 7 - 22 10/31/2017 [facility] ELECTROLYTES Glucose Lvl 85 70 - 99 10/31/2017 [facility] ELECTROLYTES Sodium Lvl 146 135 - 145 10/31/2017 [facility] ELECTROLYTES ALT 36 0 - 65 10/31/2017 [facility] ELECTROLYTES Albumin Lvl 3.4 3.5 - 5.0 10/31/2017 [facility] ELECTROLYTES Bili Total 0.3 0.2 - 1.3 10/31/2017 [facility] ELECTROLYTES Alk Phos 173 39 - 136 10/31/2017 [facility] ELECTROLYTES AST 61 0 - 37 10/31/2017 [facility] eGFR 121 10/31/2017 Result Comment: The eGFR [...] should be multiplied by the estimated BMI. [facility] ELECTROLYTES Globulin 4.8 2.7 - 4.2 10/31/2017 [facility] ELECTROLYTES B/C Ratio 5 6 - 25 10/31/2017 [facility] ELECTROLYTES A/G Ratio 0.7 0.7 - 1.6 10/31/2017 [facility] ELECTROLYTES AGAP 15.2 10.0 - 20.0 10/31/2017 [facility] HEMATOLOGY Lymphocytes # 2.2 1.0 - 5.5 10/31/2017 [facility] HEMATOLOGY Neutrophils # 1.1 1.5 - 8.1 10/31/2017 [facility] HEMATOLOGY Monocytes # 0.4 0.0 - 0.8 10/31/2017 [facility] HEMATOLOGY Eosinophils # 0.1 0.0 - 0.5 10/31/2017 [facility] HEMATOLOGY Segs 29.3 45.0 - 75.0 10/31/2017 [facility] HEMATOLOGY Eosinophils 1.8 0.0 - 4.0 10/31/2017 [facility] HEMATOLOGY Monocytes 10.3 2.0 - 12.0 10/31/2017 [facility] HEMATOLOGY Basophils 0.9 0.0 - 1.0 10/31/2017 [facility] HEMATOLOGY Lymphocytes 57.7 20.0 - 40.0 10/31/2017 [facility] HEMATOLOGY Hct 34.4 36.0 - 48.0 10/31/2017 [facility] HEMATOLOGY MCV 86.8 80.0 - 98.0 10/31/2017 [facility] HEMATOLOGY MPV 7.0 7.4 - 10.4 10/31/2017 [facility] HEMATOLOGY MCH 28.5 27.0 - 31.0 10/31/2017 [facility] HEMATOLOGY Platelet 199 133 - 450 10/31/2017 [facility] HEMATOLOGY MCHC 32.9 32.0 - 36.0 10/31/2017 [facility] HEMATOLOGY RDW 18.4 11.5 - 14.5 10/31/2017 [facility] HEMATOLOGY WBC 3.9 3.7 - 10.4 10/31/2017 [facility] HEMATOLOGY RBC 3.97 4.20 - 5.40 10/31/2017 [facility] HEMATOLOGY Hgb 11.3 12.0 - 16.0 10/31/2017 [facility] TOXICOLOGY Acetaminoph Lvl <2 10 - 20 10/31/2017 [facility] TOXICOLOGY Etoh (%) 0.325 10/31/2017 [facility] TOXICOLOGY Ethanol Lvl 325 10/31/2017 [facility] TOXICOLOGY Salicylate Lvl 3.3 0.0 - 30.0 10/31/2017 [facility] ELECTROLYTES CO2 24 24 - 32 08/07/2017 [facility] ELECTROLYTES Calcium Lvl 9.2 8.5 - 10.5 08/07/2017 [facility] ELECTROLYTES eGFR 106 08/07/2017 Result Comment: The [...] should be multiplied by the estimated BMI. [facility] ELECTROLYTES Potassium Lvl 4.0 3.5 - 5.1 08/07/2017 [facility] ELECTROLYTES Sodium Lvl 134 135 - 145 08/07/2017 [facility] ELECTROLYTES Creatinine Lvl 0.7 6 0.50 - 1.40 08/07/2017 [facility] ELECTROLYTES BUN 4 7 - 22 08/07/2017 [facility] ELECTROLYTES Glucose Lvl 177 70 - 99 08/07/2017 [facility] ELECTROLYTES Chloride Lvl 101 95 - 109 08/07/2017 [facility] ELECTROLYTES AGAP 13.0 10.0 - 20.0 08/07/2017 [facility] HEMATOLOGY Platelet 247 133 - 450 08/07/2017 [facility] HEMATOLOGY MPV 8.0 7.4 - 10.4 08/07/2017 [facility] HEMATOLOGY WBC 9.7 3.7 - 10.4 08/07/2017 [facility] HEMATOLOGY RBC 3.81 4.20 - 5.40 08/07/2017 [facility] HEMATOLOGY MCHC 32.6 32.0 - 36.0 08/07/2017 [facility] HEMATOLOGY RDW 15.2 11.5 - 14.5 08/07/2017 [facility] HEMATOLOGY Hgb 10.9 12.0 - 16.0 08/07/2017 [facility] HEMATOLOGY MCV 87.8 80.0 - 98.0 08/07/2017 [facility] HEMATOLOGY MCH 28.6 27.0 - 31.0 08/07/2017 [facility] HEMATOLOGY Hct 33.4 36.0 - 48.0 08/07/2017 [facility] HEMATOLOGY Segs 64.9 45.0 - 75.0 08/07/2017 [facility] HEMATOLOGY Lymphocytes # 1.4 1.0 - 5.5 08/07/2017 [facility] HEMATOLOGY Basophils 0.5 0.0 - 1.0 08/07/2017 [facility] HEMATOLOGY Segs-Bands # 6.3 1.5 - 8.1 08/07/2017 [facility] HEMATOLOGY Eosinophils 1.1 0.0 - 4.0 08/07/2017 [facility] HEMATOLOGY Monocytes # 1.9 0.0 - 0.8 08/07/2017 [facility] HEMATOLOGY Eosinophils # 0.1 0.0 - 0.5 08/07/2017 [facility] HEMATOLOGY Monocytes 19.3 2.0 - 12.0 08/07/2017 [facility] HEMATOLOGY Lymphocytes 14.2 20.0 - 40.0 08/07/2017 [facility] HEMATOLOGY Basophils # 0.1 0.0 - 0.2 08/07/2017 [facility] URINE AND STOOL UA WBC 3-5 /HPF None Seen /HPF 08/07/2017 [facility] URINE AND STOOL UA RBC 0-2 /HPF 0 - 2 08/07/2017 [facility] URINE AND STOOL UA Bacteria Few /HPF None Seen /HPF 08/07/2017 [facility] URINE AND STOOL UA Sq Epi Moderate /LPF Few /LPF 08/07/2017 [facility] URINE AND STOOL UA Glucose Negative (08/07/17 4:14 PM) Negative 08/07/2017 [facility] URINE AND STOOL UA pH 6.0 5.0 - 8.0 08/07/2017 [facility] URINE AND STOOL UA Ketones Negative *NA* (08/07/17 4:14 PM) Negative 08/07/2017 [facility] URINE AND STOOL UA Bili Negative *NA* (08/07/17 4:14 PM) Negative 08/07/2017 [facility] URINE AND STOOL UA Protein Negative (08/07/17 4:14 PM) Negative 08/07/2017 [facility] URINE AND STOOL UA Turbidity Clear (08/07/17 4:14 PM) Clear 08/07/2017 [facility] URINE AND STOOL UA Color Yellow *NA* (08/07/17 4:14 PM) Yellow 08/07/2017 [facility] URINE AND STOOL UA Spec Grav <=1.005 *NA* (08/07/17 4:14 PM) <=1.030 08/07/2017 [facility] URINE AND STOOL UA Nitrite Negative (08/07/17 4:14 PM) Negative 08/07/2017 [facility] URINE AND STOOL UA Blood Negative (08/07/17 4:14 PM) Negative 08/07/2017 [facility] URINE AND STOOL UA Leuk Est Moderate *ABN* (08/07/17 4:14 PM) Negative 08/07/2017 [facility] URINE AND STOOL UA Urobilinogen 0.2 0.1 - 1.0 08/07/2017 [facility] URINE CHEM U Preg Negat jaime (08/07/17 4:14 PM) Negative 08/07/2017 [facility] Pathology Reports No Data Provided for This [...] of acute intracranial abnormality. JULIANNA: MARLEY 12/09/2018 [facility] Facial bone wo contrast CT Cli nical [...] to patient size -Use of iterative reconstruction [employer] ue CT Radiation Dose DLP 260 mGy-cm [...] to chronic sinus disease. SL: 82 10/18/2018 [facility] Brain wo contrast CT CT BRAIN WITHOUT [...] cervical spine abnormalities are visualized. SL:16 10/18/2018 [facility] Spine cervical wo contrast CT CT BRAIN [...] cervical spine abnormalities are visualized. SL:16 10/18/2018 [facility] Abdomen/Pelvis wo IV contrast CT Clinical Indication: [...] and pelvis without contrast. SL: 82 09/25/2018 [facility] Shoulder series DX Clinical In dication: [...] in the right shoulder. SL: 82 09/24/2018 [facility] Brain wo contrast CT CT BRAIN WITHOUT [...] acute intracranial abnormalities are visualized. SL:16 09/09/2018 [facility] Spine cervical wo contrast CT Exam: Spine [...] to patient size -Use of iterative reconstruction [employer] ue CT Radiation Dose DLP 509.8 mGy-cm [...] of the cervical spine. SL: [id number] 08/23/2018 [facility] Brain wo contrast CT CT head w [...] No acute intracranial abnormality. SL: [id number] 08/23/2018 [facility] Brain wo contrast CT Clinical Indication: Head [...] to patient size -Use of iterative reconstruction [employer] ue CT Radiation Dose DLP 722.2 mGy-cm [...] of acute territorial infarction. SL: [id number] 07/13/2018 [facility] Forearm 2 views DX Clinical In dication: [...] foreign body is identified. SL: 82 07/13/2018 [facility] Spine cervical wo contrast CT Clinical [...] intramural fundal fibroid measures 5 cm. 06/12/2018 [facility] Elbow 3 views DX Clinical Skylar [...] seous injury of the right elbow. : [id number] 10/31/2017 [facility] Shoulder series DX Clinical In [...] seous injury of the right elbow. SL: [id number] 10/31/2017 [facility] Brain wo contrast CT Clinical Indication: - [...] no mass, hemorrhage or subacute stroke. SL: [id number] 10/31/2017 [facility] Spine cervical wo contrast CT [...] positional or secondary to muscular spasm. SL: [id number] 10/31/2017 [facility] Consultation Notes No Data Provided for This [...] [place] Diastolic (mm Hg) 73 08/02/2018 [facility] Respitory Rate 20 08/02/2018 [facility] Systolic (mm Hg) 106 08/02/2018 [facility] Diastolic (mm Hg) 68 08/02/2018 [facility] Temperature Oral (F) 99 F 08/02/2018 [facility] Respitory Rate 18 08/02/2018 [facility] Weight 66.818 08/02/2018 [facility] BMI Calculated 23.07 08/02/2018 [facility] Heart Rate 104 08/02/2018 [facility] Height 170.18 cm 08/02/2018 [facility] Heart Rate 80 07/31/2018 [facility] Respitory Rate 16 07/31/2018 [facility] Systolic (mm Hg) 122 07/31/2018 [facility] Diastolic (mm Hg) 68 07/31/2018 [facility] Temperature Oral (F) 98.6 F 07/31/2018 [facility] Systolic (mm Hg) 119 07/31/2018 [facility] Diastolic (mm Hg) 64 07/31/2018 [facility] Heart Rate 84 07/31/2018 [facility] Respitory Rate 17 07/31/2018 [facility] Respitory Rate 16 07/31/2018 [facility] Systolic (mm Hg) 120 07/31/2018 [facility] Diastolic (mm Hg) 68 07/31/2018 [facility] Heart Rate 72 07/31/2018 [facility] Weight 81.818 07/30/2018 [facility] Respitory Rate 16 07/27/2018 [facility] Systolic (mm Hg) 96 07/27/2018 [facility] Diastolic (mm Hg) 59 07/27/2018 [facility] Heart Rate 67 07/27/2018 [facility] Temperature Oral (F) 98.4 F 07/27/2018 [facility] Temperature Oral (F) 98.8 F 07/27/2018 [facility] Respitory Rate 16 07/27/2018 [facility] Heart Rate 73 07/27/2018 [facility] Systolic (mm Hg) 100 07/27/2018 [facility] Diastolic (mm Hg) 62 07/27/2018 [facility] Systolic (mm Hg) 109 07/27/2018 [facility] Diastolic (mm Hg) 64 07/27/2018 [facility] Respitory Rate 18 07/27/2018 [facility] Heart Rate 82 07/27/2018 [facility] Temperature Oral (F) 98.9 F 07/27/2018 [facility] Weight 74.318 07/26/2018 [facility] BMI Calculated 29.02 07/26/2018 [facility] Height 160.02 cm 07/26/2018 [facility] BMI Calculated 0.65 07/26/2018 [facility] Weight 1.676 07/26/2018 [facility] Height 160.02 cm 07/21/2018 [facility] Systolic (mm Hg) 100 07/13/2018 [facility] Diastolic (mm Hg) 56 07/13/2018 [facility] Heart Rate 89 07/13/2018 [facility] Respitory Rate 17 07/13/2018 [facility] Weight 63.636 07/13/2018 [facility] BMI Calculated 24.08 07/13/2018 [facility] Respitory Rate 20 07/13/2018 [facility] Systolic (mm Hg) 104 07/13/2018 [facility] Diastolic (mm Hg) 90 07/13/2018 [facility] Heart Rate 121 07/13/2018 [facility] Temperature Oral (F) 98.2 F 07/13/2018 [facility] Height 162.56 cm 07/13/2018 [facility] Heart Rate 85 05/04/2018 [facility] Systolic (mm Hg) 115 05/04/2018 [facility] Diastolic (mm Hg) 74 05/04/2018 [facility] [facility] Respitory Rate 16 05/04/2018 [facility] Temperature Oral (F) 98.5 F 05/04/2018 [facility] Temperature Oral (F) 98.6 F 05/04/2018 [facility] Weight 65.909 05/04/2018 [facility] BMI Calculated 26.58 05/04/2018 [facility] Height 157.48 cm 05/04/2018 [facility] Systolic (mm Hg) 129 05/04/2018 [facility] Diastolic (mm Hg) 84 05/04/2018 [facility] Heart Rate 85 05/04/2018 [facility] Respitory Rate 17 05/04/2018 [facility] Systolic (mm Hg) 120 11/01/2017 [facility] Diastolic (mm Hg) 75 11/01/2017 [facility] Respitory Rate 18 11/01/2017 [facility] Temperature Oral (F) 98.2 F 11/01/2017 [facility] Heart Rate 66 11/01/2017 [facility] Systolic (mm Hg) 129 11/01/2017 [facility] Diastolic (mm Hg) 85 11/01/2017 [facility] Respitory Rate 16 11/01/2017 [facility] Heart Rate 68 11/01/2017 [facility] Temperature Oral (F) 98.1 F 11/01/2017 [facility] Systolic (mm Hg) 134 11/01/2017 [facility] Diastolic (mm Hg) 89 11/01/2017 [facility] Respitory Rate 18 11/01/2017 [facility] Temperature Oral (F) 98.2 F 11/01/2017 [facility] Heart Rate 62 11/01/2017 [facility] Heart Rate 93 08/08/2017 [facility] Temperature Oral (F) 98.4 F 08/08/2017 [facility] Respitory Rate 20 08/08/2017 [facility] Systolic (mm Hg) 112 08/08/2017 [facility] Diastolic (mm Hg) 72 08/08/2017 [facility] Heart Rate 96 08/08/2017 [facility] Temperature Oral (F) 97.6 F 08/08/2017 [facility] Systolic (mm Hg) 110 08/08/2017 [facility] Diastolic (mm Hg) 72 08/08/2017 [facility] Respitory Rate 22 08/08/2017 [facility] Respitory Rate 16 08/07/2017 [facility] Heart Rate 114 08/07/2017 [facility] Temperature Oral (F) 98.6 F 08/07/2017 [facility] Systolic (mm Hg) 117 08/07/2017 [facility] Diastolic (mm Hg) 63 08/07/2017 [facility] BMI Calculated 25.84 08/07/2017 [facility] Weight 64.091 08/07/2017 [facility] Height 157.48 cm 08/07/2017 [facility] Encounters Location Location Details Encounter Type Encounter Number Reason For Visit Attending Provider ADM Date DC Date Status Source [facility] Emergency [id number] Keturah Chávez 08/07/2017 08/08/2017 [facility] Emergency [id number] Chuckshanetlle Brown 10/31/2017 11/01/2017 [facility] Emergency [id number] [facility] 05/04/2018 05/04/2018 [facility] Imaging [facility] Out Diag Services [id number] 00 Martha Wisam 06/12/2018 06/13/2018 [facility] Emergency [id number] KimberMerleneDerek Jorgenir Billy 07/14/1907/13/2018 [facility] Observation [id number] Marietta Barraza 07/26/2018 07/27/2018 [facility] Emergency [id number] Maurisiodelbert Celeste 07/30/2018 07/31/2018 [facility] Emergency [id number] Bobby Hunter 08/02/2018 08/02/[address] [facility] [place] Emergency [id number] Avis Alcantara 019 08/24/[address] [facility] [place] [place] Emergency [id number] Preston Beadr 09/09/2018 09/09/[address] [facility] [place] [place] Emergency [id number] Danish Caruso 09/25/2018 09/25/[address] [facility] [place] [place] Emergency [id number] Conner Finley 10/18/2018 10/18/[address] [facility] [place] [place] Emergency [id number] Luc Demarco 12/05/2018 12/05/[address] [facility] [place] [place] Inpatient [id number] Minerva Damian 12/10/1912/12/2018 [facility] Procedures Procedure Code Date Perfomer Comments Source Dilatation and curettage<sup>1</sup> [id number] ~2013 [facility] Assessment and Plan Assessment and Plan [...] be given as needed for agitation. 12/12/2018 [facility] Extracted from:Title: Aircraft Magneto Mechanic Progress Note Author: Bette Schneider MD Date: 07/27/18 Progress Note - Daily [facility] Completed: July, 07:42 by Bette Schneider MD RM: COU - 20, MANDY HARDY 32y (: 1985) F Attending: Marietta Barraza MD Service: Beef Lugger Service Reason for Admission: POLYPS Working DRG: Code status: Full Code Current diet: Isolation: No Isolation/Standard Precautions Allergies: penicillins SUBJECTIVE reports poorly controlled pain overnight on tramdol/motrin. says she previously took [place] for her prior procedures and requests norco [...] Pt reports pain poorly controlled- will add [place] 5-325 with expectation that she will not be discharged with the regimen. -GI: bee reg diet -: voiding -Hb 14> EBL 30> 12.7 -ppx: SCDs dispo: anticipate D/C home today Bette Schneider MD Resident Physician | PGY4 Department of Obstetrics, Gynecology and Reproductive Sciences [facility] Addendum by Bette Schneider MD on 07/27/2018 09:46 dictation no [id number] Extracted from:Title: Clinical Document Author: Marietta Barraza [...] Tablet; TAKE 1 TABLET TWICE DAILY; Therapy: [id number] to Recorded Past Medical History 1. History [...] for scheduled surgery Guillermo Harris M.D. | #[id number] Resident Physician | PGY 2 Department of Obstetrics, Gynecology and Reproductive Sciences [facility] 07/27/2018 [facility] Plan of Care No Data Provided for [...] on: 12/09/18 1currently living in sober living [facility] but today last day of 12/05/2018 [facility] Social History TypeResponse Substance Abuse Use: Past. [...] x 10 years; entered on: 07/26/18 07/26/2018 [facility] Social History TypeResponse Substance Abuse Use: Past. Amount: tried marijuana "many years ago". Alcohol Past, Frequency: Daily. Stopped age 32 Years. Previous treatment: Alcoholics Anonymous. Smoking Status Current every day smoker; Type: Cigarettes; Lives with someone who smokes; Cigarette Smoking Last 365 Days Yes; Reg Smoking Cessation Counseling Yes; Other Tobacco Frequency 1/2 PPD x 10 years; entered on: 08/01/18 07/26/2018 [facility] Social History TypeResponse Smoking Status Current every day smoker; Type: Cigarettes; Exposure to Tobacco Smoke None; Cigarette Smoking Last 365 Days Yes; Reg Smoking Cessation Counseling Yes entered on: 10/31/17 10/31/2017 [facility] Social History TypeResponse Smoking Status Current every day smoker; Type: Cigarettes; Exposure to Tobacco Smoke None; Cigarette Smoking Last 365 Days Yes; Reg Smoking Cessation Counseling Yes entered on: 10/31/17 10/31/2017 [facility] Family History No Data Provided for This Section Advance Directives No Data Provided for This Section Functional Status No Data Provided for This Section
--- OUTSIDE RECORDS SUMMARY | 2019-11-23 10:38 | XMS REPORT | Continuity of Care Document ---
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 Oral Tablet [Lamictal] 2018-07-21 21:08:00 Yes 100 mg = 1 tab, PO, BID, # 180 tab, 0 Refill(s) [facility] LaMICtal 100 MG Oral Tablet LaMICtal 100 MG Oral Tablet 2018-07-19 00:00:00 Yes Q0.5D TAKE 1 TABLET TWICE DAILY. [facility] KlonoPIN 1 MG Oral Tablet KlonoPIN 1 MG Oral Tablet 2018-07-19 00:00:0 0 Yes PRN [facility] Robaxin 2018-07-13 12:43:00 No 1,000 mg, Route: PO, ONCE, Dosing Weight 63.636, kg, Start date: 07/13/18 7:43:00 CDT, Stop date: 07/13/18 7:43:00 CDT Isaura And[facility] Bacitracin 0.5 UNT/MG Topical Ointment 2018-07-13 12:37:00 Yes 1 appl, TOP, BID, PRN Apply a thin layer to affected area, X 7 day, # 30 gm, 0 Refill(s) [facility] lamoTRIgine (LAMICTAL) 100 mg tablet 2018-05-31 00:00:00 Yes Seizures 100mg Q.5D Take 1 tablet by mouth 2 times daily. [facility] folic acid (FOLVITE) 1 mg tablet 2018-05-31 00:00:00 Yes Seizures 1mg QD Take 1 tablet by mouth daily. [facility] [id number] () Tab 2018-04-13 00: 00:00 Yes Seizure disorder during in first trimester Take by mouth. [facility] Levetiracetam 1000 MG Oral Tablet [Keppra] 2017-11-01 18:00:00 No Notes: (Same as:Keppra) [facility] Chlordiazepoxide Hydrochloride 5 MG Oral Capsule 2017-11-01 18:0 0:00 No Notes: (Same As: Librium) [facility] [place] gabap[facility] 2017-11-01 17:22:00 No Notes: (S zahra as: Neurontin) [facility] Diazepam 2017-11-01 09:06:00 No 5 mg, Route: PO, ONCE, Dosing Weight 64.091, kg, Priority: STAT, Start date: 11/01/17 4:06:00 CDT, Stop date: 11/01/17 4:06:00 CDT [facility] Acetaminophen 2017-11-01 09:06:00 No 650 mg, Route: PO, Drug form: TAB, ONCE, Dosing Weight 64.091, kg, Priority: STAT, Start date: 11/01/17 4:06:00 CDT, Stop date: 11/01/17 4:06:00 CDT Isaura Wilde gabapentin 600 MG Oral Tablet 2017-11-01 03:52:00 [...] 4:10:00 CDT, Stop date: 10/31/17 4:10:00 CDT [facility] nevin Wilde Ketorolac 2017-10-31 08:03:00 No 30 mg, Route: IVP, Drug form: INJ, ONCE, Dosing Weight 64.091, kg, Priority: STAT, Start date: 10/31/17 3:03:00 CDT, Stop date: 10/31/17 3:03:[facility] hydrOXYzine (ATARAX) 25 mg tablet 2017-08-23 00:00:00 2018 00:00:00 No Anxiety 25mg Take 1 tablet by mouth every 6 hours as needed for Anxiety. [facility] gabapentin (NEURONTIN) 600 mg tablet 2017-08-19 00:00: 00 2019-02-26 00:00:00 No Alcohol use disorder 600mg Take 1 tablet by mouth 3 ti mes daily. [facility] Cephalexin 500 MG Oral Capsule [Keflex] 2017-08-08 01:40:00 Yes 500 mg = 1 cap, PO, TID, X 7 day, # 21 cap, 0 Refill(s) [facility] Isolyte S PH-7.4 (Bolus) IV 2017-08-07 23:56:00 No 1,000 mL, Route: IV, Dosing Weight 64.091, kg, ONCE, Start date: 08/07/17 18:56:00 CDT, Stop date: 08/07/17 18:56:00 CDT [facility] gabapentin 600 MG Oral Tablet 2017-08-07 22:30:00 No Notes: (Same as: Neurontin) [facility] ketOROLAC 30 mg/mL injectable solution 2017-08-07 22:28:00 No 4 days MEDICATION WASTE Product Size: 30 mg Product Wasted: ___ mg [facility] Lorazepam 2017-08-07 21:43:00 No 1 mg, Route: PO, Drug form: TAB, ONCE, Dosing Weight 64.091, kg, Priority: STAT, Start date: 08/07/17 16:43:00 CDT, Stop date: 08/07/17 16:43:00 CDT Fl belkys Wilde Zofran 2017-08-07 21:10:00 No 4 mg, Route: IVP, Drug form: INJ, ONCE, Dosing Weight 64.091, kg, Priority: STAT, Start date: 08/07/17 16:10:00 CDT, Stop date: 08/07/17 16:10:00 CDT Fl belkys Wil[facility] Tylenol 2017-08-07 21:10:00 No 975 mg, Route: PO, Drug form: TAB, ONCE, Dosing Weight 64.091, kg, Priority: STAT, Start date: 08/07/17 16:10:00 CDT, Stop date: 08/07/17 16:10:00 CDT Fl belkys Wilde Rocephin 2017-08-07 21:02:00 No 1 gm, Route: IVPB, Drug form: PDR/INJ, ONCE, Dosing Weight 64.091, kg, Priority: STAT, Start date: 08/07/17 16:02:00 CDT, Stop date: 08/07/17 16:02:00 CDT, ABX Indication: Urinary Tract Infection [facility] Calcium Chloride 0.0014 MEQ/ML / Potassi um Chloride 0.004 MEQ/ML / Sodium Chloride 0.103 MEQ/ML / Sodium Lactate 0.028 MEQ/ML Injectable Solution 2017-08-07 21:02:00 No 1,000 mL, 1,000 ml/hr, Infuse Over: 1 hr, Route: IV, ONCE, Priority: STAT, Dosing Weight 64.091 kg, Start date: 08/07/17 16:02:00 CDT, Stop date: 08/07/17 16:02:00 CDT [facility] thiamine, B-1, 50 mg tablet 2017-04-18 00:00:00 Yes Alcohol abuse 100mg QD Take 2 tablets by mouth daily. [facility] pyridoxine, vitamin B6, 50 mg tablet 2017-04-18 00:00:00 Yes Alcohol abuse 50mg Q.5D Take 1 tablet by mouth 2 times daily. [facility] folic acid (FOLVITE) 1 mg tablet 2017-04-18 00:00:00 Yes Alcohol abuse 1mg QD Take 1 tablet by mouth daily. [facility] Chlordiazepoxide/Clidinium Br (Librax Capsule) 1 Each CAPSULE Chlordiazepoxide/Clidinium Br (Librax Capsule) 1 Each CAPSULE Ye s 1 Before Meals [facility] Fluoxetine Hcl (Prozac) 20 Mg CAPSULE Fluoxetine Hcl (Prozac) 20 Mg CAPSULE Yes 20 Daily [facility] Gabapentin Gabapentin Yes 600 Twice A Day [facility] Lamotrigine (Lamictal) 100 Mg TAB Lamotrigine (Lamictal) 100 Mg TAB Yes 100 Twice A Day [facility] Prednisone Prednisone Yes 10 Daily [facility] Promethazine Hcl Promethazine Hcl Yes Daily [facility] Sulfamethoxazole/Trimethoprim (Bactrim Ds Tablet) 1 Ea ch TABLET Sulfamethoxazole/Trimethoprim (Bactrim Ds Tablet) 1 Each TABLET Yes 1 Twice A Day [facility] Trazodone Hcl Trazodone Hcl Yes 100 Bedtime [facility] Acetaminophen/Hydrocodone Bitart ([place] 10MG-325MG*) 1 Ea TAB Acetaminophen/Hydrocodone Bitart ([place] 10MG-325MG*) 1 Ea TAB 2019-10-27 00:00:00 No As Needed [facility] Citalopram Hydrobromide (Celexa) 20 Mg TABLET Citalopr am Hydrobromide (Celexa) 20 Mg TABLET 2019-10-27 00:00:00 No 20 Daily [facility] Immunizations Ordered Immunization Name Filled Immunization Name Date Status Comments Source Tdap Tetanus, diphtheria, acellular pertussis Vaccine 2017-02-03 00:00:00 Completed [facility] Influenza Vaccine, Seasonal, Injectable 2017-02-03 00:00:0 0 Completed [facility] Vital Signs Vital Name Observation Time Observation Value Comments Source Body Temperature 2019-10-28 04:17:00 97.0 [degF] [facility] Weight 2019-10-27 09:24:00 127 [lb_av] [facility] BMI (Body Mass Index) 2019-10-27 09:24:00 23.2 kg/m2 [facility] Systolic blood pressure 2019-09-06 20:48:00 137 mm[Hg] [facility] Diastolic blood pressure 2019-09-06 20:48:00 96 mm[Hg] [facility] Heart rate 2019-09-06 20:48:00 87 /min [facility] Body temperature 2019-09-06 20:48:00 37.28 [facility] Respiratory rate 2019-09-06 20:48:00 16 /min [facility] Oxygen saturation in Arterial blood by Pulse oximetry 09-05 20:48:00 96 /min [facility] Temperature Oral (F) 2018-12-12 16:39:00 97.5 F [facility] Heart Rate 2018-12-12 16:39:00 [facility] Respitory Rate 2018-12-12 16:39:00 [facility] [place] Systolic (mm Hg) 2018-12-12 16:39:00 [facility] [place] Diastolic (mm Hg) 2018-12-12 16:39:00 [facility] [place] Temperature Oral (F) 2018-12-12 12:58:00 97.6 F [facility] [place] Heart Rate 2018-12-12 12:58:00 [facility] [place] Systolic (mm Hg) 2018-12-12 12:58:00 [facility] Diastolic (mm Hg) 2018-12-12 12:58:00 [facility] [place] Respitory Rate 2018-12-12 12:58:00 [facility] Temperature Oral (F) 2018-12-12 09:12:00 98.3 F [facility] [place] Respitory Rate 2018-12-12 09:12:00 [facility] [place] Systolic (mm Hg) 2018-12-12 09:12:00 [facility] Diastolic (mm Hg) 2018-12-12 09:12:00 [facility] Heart Rate 2018-12-11 10:28:00 [facility] [place] Height 2018-12-09 11:22:00 157.4 cm [facility] [place] Weight 2018-12-09 11:22:00 [facility] BMI Calculated 2018-12-09 11:22:00 [facility] Height 2018-12-09 05:43:00 157.48 cm [facility] BMI Calculated 2018-12-09 05:43:00 [facility] Weight 2018-12-09 05:43:00 [facility] [place] Heart Rate 2018-12-05 20:59:00 [facility] Respitory Rate 2018-12-05 20:59:00 [facility] [place] Systolic (mm Hg) 2018-12-05 20:59:00 [facility] [place] Diastolic (mm Hg) 2018-12-05 20:59:00 [facility] Respitory Rate 2018-12-05 18:46:00 [facility] Heart Rate 2018-12-05 18:46:00 [facility] [place] Systolic (mm Hg) 2018-12-05 18:46:00 [facility] [place] Diastolic (mm Hg) 2018-12-05 18:46:00 [facility] Heart Rate 2018-12-05 14:04:00 [facility] [place] Respitory Rate 2018-12-05 14:04:00 [facility] Height 2018-12-05 14:04:00 167.64 cm [facility] BMI Calculated 2018-12-05 14:04:00 [facility] [place] Weight 2018-12-05 14:04:00 [facility] Temperature Oral (F) 2018-10-18 13:19:00 98.5 F [facility] [place] Heart Rate 2018-10-18 13:19:00 [facility] [place] Systolic (mm Hg) 2018-10-18 13:19:00 [facility] Diastolic (mm Hg) 2018-10-18 13:19:00 [facility] [place] Systolic (mm Hg) 2018-10-18 11:39:00 [facility] [place] Diastolic (mm Hg) 2018-10-18 11:39:00 [facility] Heart Rate 2018-10-18 11:39:00 [facility] [place] Temperature Oral (F) 2018-10-18 11:39:00 98 F [facility] [place] Systolic (mm Hg) 2018-10-18 05:06:00 [facility] Diastolic (mm Hg) 2018-10-18 05:06:00 [facility] [place] Heart Rate 2018-10-18 05:06:00 [facility] [place] Respitory Rate 2018-10-18 05:06:00 [facility] Temperature Oral (F) 2018-10-18 05:06:00 97.6 F [facility] Height 2018-10-18 05:06:00 157.48 cm [facility] BMI Calculated 2018-10-18 05:06:00 [facility] [place] Weight 2018-10-18 05:06:00 [facility] Systolic (mm Hg) 2018-09-25 07:00:00 [facility] [place] Diastolic (mm Hg) 2018-09-25 07:00:00 [facility] Temperature Oral (F) 2018-09-25 07:00:00 98.1 F [facility] [place] Respitory Rate 2018-09-25 07:00:00 [facility] [place] Heart Rate 2018-09-25 07:00:00 [facility] [place] Respitory Rate 2018-09-25 06:00:00 [facility] Systolic (mm Hg) 2018-09-25 06:00:00 [facility] [place] Diastolic (mm Hg) 2018-09-25 06:00:00 [facility] Heart Rate 2018-09-25 06:00:00 [facility] [place] Temperature Oral (F) 2018-09-25 06:00:00 98.0 F [facility] [place] Respitory Rate 2018-09-25 03:45:00 [facility] [place] Systolic (mm Hg) 2018-09-25 03:45:00 [facility] [place] Diastolic (mm Hg) 2018-09-25 03:45:00 [facility] Heart Rate 2018-09-25 03:45:00 [facility] [place] BMI Calculated 2018-09-25 03:32:00 [facility] [place] Weight 2018-09-25 03:32:00 [facility] Height 2018-09-25 03:32:00 157.48 cm [facility] Temperature Oral (F) 2018-09-25 03:32:00 99.7 F [facility] Heart Rate 2018-09-09 12:43:00 [facility] Systolic (mm Hg) 2018-09-09 12:43:00 [facility] [place] Diastolic (mm Hg) 2018-09-09 12:43:00 [facility] [place] Respitory Rate 2018-09-09 12:43:00 [facility] [place] Temperature Oral (F) 2018-09-09 12:43:00 98.2 F [facility] BMI Calculated 2018-09-09 06:49:00 [facility] Weight 2018-09-09 06:49:00 [facility] Height 2018-09-09 06:49:00 160.02 cm [facility] Temperature Oral (F) 2018-09-09 06:49:00 98.2 F [facility] Respitory Rate 2018-09-09 06:49:00 [facility] Heart Rate 2018-09-09 06:49:00 [facility] Systolic (mm Hg) 2018-09-09 06:49:00 [facility] [place] Diastolic (mm Hg) 2018-09-09 06:49:00 [facility] [place] BP Systolic 2018-09-06 11:12:00 109 mm[Hg] Location: RAJESH Kennedy on: Sitting [facility] BP Diastolic 2018-09-06 11:12:00 75 mm[Hg] Location: RAJESH Kennedy on: Sitting [facility] Height 2018-09-06 11:12:00 63 [in_us] [facility] Weight 2018-09-06 11:12:00 121 [lb_av] [facility] Body Mass Index Calculated 2018-09-06 11:12:00 21.43 kg/m2 [facility] Temperature 2018-09-06 11:12:00 98.2 [degF] Method: Oral [facility] Heart Rate 2018-09-06 11:12:00 99 /min [facility] Respitory Rate 2018-08-24 05:15:00 [facility] [place] Systolic (mm Hg) 2018-08-24 05:15:00 [facility] [place] Diastolic (mm Hg) 2018-08-24 05:15:00 [facility] Respitory Rate 2018-08-24 04:36:00 [facility] [place] Systolic (mm Hg) 2018-08-24 04:36:00 [facility] [place] Diastolic (mm Hg) 2018-08-24 04:36:00 [facility] [place] Respitory Rate 2018-08-24 03:34:00 [facility] [place] Systolic (mm Hg) 2018-08-24 03:34:00 [facility] Diastolic (mm Hg) 2018-08-24 03:34:00 [facility] [place] Weight 2018-08-24 00:09:00 [facility] [place] Height 2018-08-24 00:09:00 165.1 cm [facility] BMI Calculated 2018-08-24 00:09:00 [facility] Temperature Oral (F) 2018-08-24 00:09:00 98.5 F [facility] [place] Heart Rate 2018-08-24 00:09:00 [facility] [place] BP Systolic 2018-08-09 08:56:00 129 mm[Hg] Location: RUE; Positi on: Sitting [facility] BP Diastolic 2018-08-09 08:56:00 87 mm[Hg] Location: RUE; Positi on: Sitting [facility] Height 2018-08-09 08:56:00 63 [in_us] [facility] Weight 2018-08-09 08:56:00 126.2 [lb_av] [facility] Body Mass Index Calculated 2018-08-09 08:56:00 22.36 kg/m2 [facility] Temperature 2018-08-09 08:56:00 98 [degF] Method: Oral [facility] Heart Rate 2018-08-09 08:56:00 87 /min [facility] Systolic (mm Hg) 2018-08-02 18:30:00 [facility] [place] Diastolic (mm Hg) 2018-08-02 18:30:00 [facility] Respitory Rate 2018-08-02 18:30:00 [facility] Temperature Oral (F) 2018-08-02 18:30:00 98.5 F [facility] Temperature Oral (F) 2018-08-02 16:01:00 98.4 F [facility] [place] Systolic (mm Hg) 2018-08-02 16:01:00 [facility] [place] Diastolic (mm Hg) 2018-08-02 16:01:00 [facility] Respitory Rate 2018-08-02 16:01:00 [facility] Systolic (mm Hg) 2018-08-02 14:02:00 [facility] Diastolic (mm Hg) 2018-08-02 14:02:00 [facility] [place] Temperature Oral (F) 2018-08-02 14:02:00 99 F [facility] [place] Respitory Rate 2018-08-02 14:02:00 [facility] Weight 2018-08-02 01:05:00 [facility] BMI Calculated 2018-08-02 01:05:00 [facility] [place] Heart Rate 2018-08-02 01:05:00 [facility] Height 2018-08-02 01:05:00 170.18 cm [facility] Heart Rate 2018-07-31 12:07:00 [facility] [place] Respitory Rate 2018-07-31 12:07:00 [facility] [place] Systolic (mm Hg) 2018-07-31 12:07:00 [facility] [place] Diastolic (mm Hg) 2018-07-31 12:07:00 [facility] Temperature Oral (F) 2018-07-31 12:07:00 98.6 F [facility] Systolic (mm Hg) 2018-07-31 08:30:00 [facility] [place] Diastolic (mm Hg) 2018-07-31 08:30:00 [facility] Heart Rate 2018-07-31 08:30:00 [facility] [place] Respitory Rate 2018-07-31 08:30:00 [facility] [place] Respitory Rate 2018-07-31 04:30:00 [facility] [place] Systolic (mm Hg) 2018-07-31 04:30:00 [facility] [place] Diastolic (mm Hg) 2018-07-31 04:30:00 [facility] Heart Rate 2018-07-31 04:30:00 [facility] [place] Weight 2018-07-30 21:10:00 [facility] Respitory Rate 2018-07-27 12:52:00 [facility] Systolic (mm Hg) 2018-07-27 12:52:00 [facility] [place] Diastolic (mm Hg) 2018-07-27 12:52:00 [facility] Heart Rate 2018-07-27 12:52:00 [facility] Temperature Oral (F) 2018-07-27 12:52:00 98.4 F [facility] [place] Temperature Oral (F) 2018-07-27 08:39:00 98.8 F [facility] Respitory Rate 2018-07-27 08:39:00 [facility] Heart Rate 2018-07-27 08:39:00 [facility] [place] Systolic (mm Hg) 2018-07-27 08:39:00 [facility] [place] Diastolic (mm Hg) 2018-07-27 08:39:00 [facility] Systolic (mm Hg) 2018-07-27 04:37:00 [facility] Diastolic (mm Hg) 2018-07-27 04:37:00 [facility] Respitory Rate 2018-07-27 04:37:00 [facility] Heart Rate 2018-07-27 04:37:00 [facility] Temperature Oral (F) 2018-07-27 04:37:00 98.9 F [facility] Weight 2018-07-26 21:41:00 [facility] [place] BMI Calculated 2018-07-26 21:41:00 [facility] [place] Height 2018-07-26 21:41:00 160.02 cm [facility] [place] BMI Calculated 2018-07-26 13:20:00 [facility] Weight 2018-07-26 13:20:00 [facility] [place] Height 2018-07-21 21:10:00 160.02 cm [facility] [place] BP Systolic 2018-07-19 09:21:00 138 mm[Hg] Location: RUE; Positi on: Sitting [facility] BP Diastolic 2018-07-19 09:21:00 78 mm[Hg] Location: RUSunil; Positi on: Sitting [facility] Height 2018-07-19 09:21:00 63 [in_us] [facility] Weight 2018-07-19 09:21:00 134 [lb_av] [facility] Body Mass Index Calculated 2018-07-19 09:21:00 23.74 kg/m2 [facility] Temperature 2018-07-19 09:21:00 98.3 [degF] Method: Oral [facility] Heart Rate 2018-07-19 09:21:00 111 /min [facility] Systolic (mm Hg) 2018-07-13 12:30:00 [facility] Diastolic (mm Hg) 2018-07-13 12:30:00 [facility] Heart Rate 2018-07-13 12:30:00 [facility] [place] Respitory Rate 2018-07-13 12:30:00 [facility] [place] Weight 2018-07-13 11:00:00 [facility] BMI Calculated 2018-07-13 11:00:00 [facility] Respitory Rate 2018-07-13 11:00:00 [facility] Systolic (mm Hg) 2018-07-13 11:00:00 [facility] Diastolic (mm Hg) 2018-07-13 11:00:00 [facility] [place] Heart Rate 2018-07-13 11:00:00 [facility] Temperature Oral (F) 2018-07-13 11:00:00 98.2 F [facility] Height 2018-07-13 11:00:00 162.56 cm [facility] Heart Rate 2018-05-04 06:36:00 [facility] [place] Systolic (mm Hg) 2018-05-04 06:36:00 [facility] Diastolic (mm Hg) 2018-05-04 06:36:00 [facility] Respitory Rate 2018-05-04 06:36:00 [facility] [place] Temperature Oral (F) 2018-05-04 06:36:00 98.5 F [facility] [place] Temperature Oral (F) 2018-05-04 03:50:00 98.6 F [facility] Weight 2018-05-04 03:50:00 [facility] [place] BMI Calculated 2018-05-04 03:50:00 [facility] Height 2018-05-04 03:50:00 157.48 cm [facility] [place] Systolic (mm Hg) 2018-05-04 03:50:00 [facility] [place] Diastolic (mm Hg) 2018-05-04 03:50:00 [facility] [place] Heart Rate 2018-05-04 03:50:00 [facility] [place] Respitory Rate 2018-05-04 03:50:00 [facility] [place] Systolic (mm Hg) 2017-11-01 21:00:00 [facility] [place] Diastolic (mm Hg) 2017-11-01 21:00:00 [facility] Respitory Rate 2017-11-01 21:00:00 [facility] Temperature Oral (F) 2017-11-01 21:00:00 98.2 F [facility] Heart Rate 2017-11-01 21:00:00 [facility] Systolic (mm Hg) 2017-11-01 17:00:00 [facility] [place] Diastolic (mm Hg) 2017-11-01 17:00:00 [facility] Respitory Rate 2017-11-01 17:00:00 [facility] [place] Heart Rate 2017-11-01 17:00:00 [facility] [place] Temperature Oral (F) 2017-11-01 17:00:00 98.1 F [facility] [place] Systolic (mm Hg) 2017-11-01 12:45:00 [facility] [place] Diastolic (mm Hg) 2017-11-01 12:45:00 [facility] Respitory Rate 2017-11-01 12:45:00 [facility] [place] Temperature Oral (F) 2017-11-01 12:45:00 98.2 F [facility] Heart Rate 2017-11-01 12:45:00 [facility] Heart Rate 2017-08-08 02:47:00 [facility] [place] Temperature Oral (F) 2017-08-08 02:47:00 98.4 F [facility] Respitory Rate 2017-08-08 02:47:00 [facility] Systolic (mm Hg) 2017-08-08 02:47:00 [facility] [place] Diastolic (mm Hg) 2017-08-08 02:47:00 [facility] Heart Rate 2017-08-08 01:36:00 [facility] [place] Temperature Oral (F) 2017-08-08 01:36:00 97.6 F [facility] [place] Systolic (mm Hg) 2017-08-08 01:36:00 [facility] [place] Diastolic (mm Hg) 2017-08-08 01:36:00 [facility] Respitory Rate 2017-08-08 01:36:00 [facility] [place] Respitory Rate 2017-08-07 23:50:00 [facility] [place] Heart Rate 2017-08-07 23:50:00 [facility] [place] Temperature Oral (F) 2017-08-07 23:50:00 98.6 F [facility] Systolic (mm Hg) 2017-08-07 23:50:00 [facility] Diastolic (mm Hg) 2017-08-07 23:50:00 [facility] [place] BMI Calculated 2017-08-07 20:27:00 [facility] Weight 2017-08-07 20:27:00 [facility] [place] Height 2017-08-07 20:27:00 157.48 cm [facility] Procedures Procedure Date / Time Performed Performing Clinician [facility] e Computed tomography of brain without radiopaque contrast 2019-10 00:00:00 [facility] GLUCOSE POC 2019-09-06 17:16:00 Wilfrido Martins [facility] th XRAY CHEST 1 VIEW 2019-09-06 14:35:35 Wilfrido Martins [facility] CORONAVIRUS, COVID-19, GIULIANA 2019-09-06 08:26:00 AndBrissa sutton [facility] CONSULT CLINICAL CASE MANAGEMENT (RN/SW) 2019-09-06 05:32:55 Luther marroquin [facility] IP CONSULT WITH INSIGHT 2019-09-06 05:32:55 Lakshmi [facility] BMP POC 2019-09-06 01:51:00 Lakshmi [facility] BMP POC 2019-09-06 01:34:00 Lakshmi [facility] CT HEAD W/O CONTRAST 2019-09-06 01:06:53 Lakshmi [facility] CT MAXILLOFACIAL W/O CONTRAST 2019-09-06 01:06:53 Arthur Martins [facility] CBC/DIFF 2019-09-05 23:53:00 Lakshmi [facility] COMPREHENSIVE METABOLIC PANEL 2019-09-05 23:53:00 Arthur Martins [facility] LIPASE 2019-09-05 23:53:00 Lakshmi [facility] ALCOHOL, MEDICAL USE ONLY 2019-09-05 23:53:00 Lakshmi [facility] SALICYLATE 2019-09-05 23:53:00 Lakshmi [facility] LAMOTRIGINE-LAMICTAL 2019-09-05 23:53:00 Lakshmi [facility] CBC 2019-09-05 23:53:00 Lakshmi [facility] TEST 2019-09-05 23:43:00 Lakshmi [facility] URINE DRUG SCREEN 2019-09-05 23:43:00 Lakshmi [facility] Dilatation and curettage<sup>1</sup> [facility] Plan of Care Planned Activity Planned Date Details Comments Source Future Scheduled Test 2019-07-17 00:00:00 Screening for adelia gnant neoplasm of cervix (procedure) [code = [id number]] [facility] Instructions Suicidal Ideation [facility] Instructions Alcohol Abuse [facility] Instructions Alcohol Intoxication [facility] Encounters Start Date/Time End Date/Time Encounter Type Admission Type [facility] Care Department Encounter ID Source 2019-11-08 20:18:00 2019-11-09 14:35:00 Emergency Keven lopez, Haily [facility] ([facility]) [id number] 2019-10-27 09:23:00 2019-10-28 04:23:00 Departed Emergency Room 1 JENN MCKEON [facility] [id number] [facility] 2019-10-22 17:25:00 2019-10-23 03:40:00 Emergency Sara Camacho [facility] ([facility]) [id number] 2019-09-14 22:34:09 2019-09-15 19:28:00 Emergency C Shaka lopez, [facility] ([facility]) [id number] 2019-08-29 00:00:00 2019-08-29 00:00:00 Orders Only D octor Unassigned, Laura [facility] [id number] 2019-08-13 00:00:00 2019-08-13 00:00:00 Transition of Care Tiffany Coyle [id number] 2019-08-06 19:30:27 2019-08-10 14:33:00 Hospital Encounter Serjio Henley [facility] ([facility]) [id number] 2019-01-15 00:00:00 2019-01-15 00:00:00 Outpatient [facility] [id number] [facility] 2018-12-09 00:42:39 2018-12-12 14:20:00 Outpatient Minerva Chaidez [facility] M[facility] [id number] 2018-12-09 11:19:00 2018-12-09 03:46:00 Inpatient U [facility] MED [id number] [facility] 2018-12-05 08:54:00 2018-12-05 16:40:00 Outpatient DemarcoLuc sahni Cooper M[facility] M[facility] [id number] 2018-12-05 08:54:00 2018-12-05 08:54:00 Emergency E [facility] [id number] [facility] 2018-11-08 00:00:00 2018-11-08 00:00:00 Outpatient [facility] [id number] [facility] 2018-10-23 13:22:20 2018-10-23 13:22:20 Outpatient [facility] [id number] [facility] 2018 23:59:00 2018-10-18 08:57:00 Outpatient Conner Miles M[facility] M[facility] [id number] 2018 23:59:00 2018 23:59:00 Emergency E [facility]NW [id number] [facility] 2018-10-12 00:00:00 2018-10-12 00:00:00 Outpatient [facility] [id number] [facility] 2018-09-29 07:51:22 2018-09-29 07:51:22 Emergency [facility] [id number] [facility] 2018-09-29 02:25:07 2018-09-29 02:25:07 Emergency [facility] [id number] [facility] 2018-09-24 22:28:00 2018-09-25 03:21:00 Outpatient Danish Caruso M[facility] M[facility] [id number] 2018-09-24 22:28:00 2018-09-24 22:28:00 Emergency E [facility]NW [id number] [facility] 2018-09-21 13:06:16 2018-09-21 13:06:16 Outpatient [facility] [id number] [facility] 2018-09-09 01:47:00 2018-09-09 08:22:00 Outpatient Roopa Beard M[facility] M[facility] [id number] 2018-09-09 01:47:00 2018-09-09 01:47:00 Emergency E [facility]NW [id number] [facility] 2018-09-06 11:00:00 2018-09-06 11:00:00 Appointment; MARIETTA BARRAZA M.D. BHALWAL, ASHA, M.D. [facility] [id number] [facility] 2018-08-28 00:00:00 2018-08-28 00:00:00 Outpatient [facility] [id number] [facility] 2018-08-23 19:03:20 2018-08-24 00:48:00 Outpatient Avis Knowles M[facility] GHR [id number] 2018-08-23 19:03:00 2018-08-23 19:03:00 Emergency E [facility] NW [id number] [facility] 2018-08-09 09:30:00 2018-08-09 09:30:00 Appointment; MARIETTA BARRAZA M.D. BHALWAL, ASHA, M.D. [facility] [id number] [facility] 2018-08-01 20:04:18 2018-08-02 14:45:00 Outpatient Diamond Hunter M[facility] M[facility] [id number] 2018-08-01 20:04:00 2018-08-01 20:04:00 Emergency E [facility] MHNW [id number] [facility] 2018-07-30 16:05:09 2018-07-31 08:00:00 Outpatient Joe Celeste [facility] [id number] 2018-07-30 16:05:00 2018-07-30 16:05:00 Emergency E [facility] [id number] [facility] 2018-07-26 15:14:00 2018-07-27 10:33:00 Outpatient Marietta Barraza Bhagsingh [facility] [id number] 2018-07-26 15:14:00 2018-07-26 15:14:00 Outpatient [facility] SHELDONH [id number] [facility] 2018-07-26 11:30:00 2018-07-26 11:30:00 Appointment; NOLAN WHARTON M .D. KATZ, ALLAN, M.D. [facility] [id number] [facility] 2018-07-26 11:30:00 2018-07-26 11:30:00 Appointment; MARIETTA BARRAZA M.D. BHALWAL, ASHA, M.D. [facility] UTP [id number] [facility] 2018-07-19 09:00:00 2018-07-19 09:00:00 Appointment; MARIETTA BARRAZA M.D. BHALWAL, ASHA, M.D. [facility] Candy Dipper Hand [id number] [facility] 2018-07-13 05:56:52 2018-07-13 08:20:00 Outpatient W frank MariajoseRad MHGHR MHGHR [id number] 2018-07-13 05:56:00 2018-07-13 05:56:00 Emergency E [facility] [id number] [facility] 2018-06-26 14:27:28 2018-06-26 14:27:28 Outpatient [facility] [id number] [facility] 2018-06-26 13:36:30 2018-06-26 13:36:30 Outpatient [facility] [id number] [facility] 2018-06-12 16:00:00 2018-06-12 23:59:00 Outpatient Sundeep Rivers [id number] 2018-06-01 00:00:00 2018-06-01 00:00:00 Outpatient [facility] [id number] [facility] 2018-05-31 10:17:01 2018-05-31 10:17:01 Outpatient [facility] [id number] [facility] 2018-05-11 00:00:00 2018-05-11 00:00:00 Outpatient [facility] [id number] [facility] 2018-05-11 00:00:00 2018-05-11 00:00:00 Outpatient [facility] [id number] [facility] 2018-05-11 00:00:00 2018-05-11 00:00:00 Outpatient [facility] [id number] [facility] 2018-05-05 00:00:00 2018-05-05 00:00:00 Outpatient [facility] [id number] [facility] 2018-05-04 11:30:00 2018-05-04 11:30:00 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; 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, 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, ROOM3 [facility] [id number] [facility] 2018-05-03 21:27:00 2018-05-04 04:31:00 Outpatient Lobito Graves [facility] [id number] 2018-05-04 00:00:00 2018-05-04 00:00:00 Outpatient [facility] [id number] [facility] 2018-05-02 00:00:00 2018-05-02 00:00:00 Outpatient [facility] [id number] [facility] 2018-04-27 00:00:00 2018-04-27 00:00:00 Outpatient [facility] [id number] [facility] 2018-04-27 00:00:00 2018-04-27 00:00:00 Outpatient [facility] [id number] [facility] 2018-04-24 00:00:00 2018-04-24 00:00:00 Outpatient [facility] [id number] [facility] 2018-04-18 00:00:00 2018-04-18 00:00:00 Outpatient [facility] [id number] [facility] 2018-04-13 08:43:04 2018-04-13 08:43:04 Outpatient [facility] [id number] [facility] 2018-04-13 00:00:00 2018-04-13 00:00:00 Outpatient [facility] [id number] [facility] 2018-04-11 14:47:42 2018-04-11 14:47:42 Outpatient [facility] [id number] [facility] 2018-04-06 00:00:00 2018-04-06 00:00:00 Outpatient [facility] [id number] [facility] 2018-04-03 15:51:27 2018-04-03 15:51:27 Outpatient [facility] [id number] [facility] 2018-03-16 00:00:00 2018-03-16 00:00:00 Outpatient [facility] [id number] [facility] 2018-03-13 09:03:44 2018-03-13 09:03:44 Outpatient [facility] [id number] [facility] 2018-03-09 15:32:13 2018-03-09 15:32:13 Outpatient [facility] [id number] [facility] 2018-01-17 00:00:00 2018-01-17 00:00:00 Outpatient [facility] [id number] [facility] 2018-01-16 00:00:00 2018-01-16 00:00:00 Outpatient [facility] [id number] [facility] 2018-01-13 00:00:00 2018-01-13 00:00:00 Outpatient [facility] [id number] [facility] 2018-01-02 12:16:17 2018-01-02 12:16:17 Emergency [facility] [id number] [facility] 2018-01-01 15:33:01 2018-01-01 15:33:01 Emergency [facility] [id number] [facility] 2017-12-14 00:00:00 2017-12-14 00:00:00 Outpatient [facility] [id number] [facility] 2017-11-24 00:00:00 2017-11-24 00:00:00 Outpatient [facility] [id number] [facility] 2017-11-18 10:31:22 2017-11-18 10:31:22 Outpatient [facility] [id number] [facility] 2017-11-10 00:00:00 2017-11-10 00:00:00 Outpatient [facility] [id number] [facility] 2017-10-31 02:30:00 2017-11-01 17:35:00 Outpatient Danielle Brown [facility] [id number] 2017-11-01 00:00:00 2017-11-01 00:00:00 Outpatient [facility] [id number] [facility] 2017-10-07 00:00:00 2017-10-07 00:00:00 Outpatient [facility] [id number] [facility] 2017-09-24 01:27:25 2017-09-24 01:27:25 Emergency [facility] [id number] [facility] 2017-09-24 00:03:44 2017-09-24 00:03:44 Outpatient [facility] [id number] [facility] 2017-09-09 00:00:00 2017-09-09 00:00:00 Outpatient [facility] [id number] [facility] 2017-09-08 17:11:30 2017-09-08 17:11:30 Outpatient [facility] [id number] [facility] 2017-08-26 10:56:32 2017-08-26 10:56:32 Outpatient [facility] [id number] [facility] 2017-08-23 15:10:26 2017-08-23 15:10:26 Outpatient [facility] [id number] [facility] 2017-08-17 10:39:54 2017-08-17 10:39:54 Outpatient [facility] [id number] [facility] 2017-08-17 08:37:37 2017-08-17 08:37:37 Outpatient [facility] [id number] [facility] 2017-08-08 12:37:24 2017-08-08 12:37:24 Emergency [facility] [id number] [facility] 2017-08-07 15:23:00 2017-08-07 21:50:00 Outpatient KylerKeturah [facility] [id number] 2017-07-25 00:00:00 2017-07-25 00:00:00 Outpatient [facility] [id number] [facility] 2017-07-19 00:00:00 2017-07-19 00:00:00 Outpatient [facility] [id number] [facility] 2017-07-19 00:00:00 2017-07-19 00:00:00 Outpatient [facility] [id number] [facility] 2017-07-15 00:00:00 2017-07-15 00:00:00 Outpatient [facility] [id number] [facility] 2017-07-13 00:00:00 2017-07-13 00:00:00 Outpatient [facility] [id number] [facility] 2017-07-13 00:00:00 2017-07-13 00:00:00 Outpatient [facility] [id number] [facility] 2017-07-13 00:00:00 2017-07-13 00:00:00 Outpatient [facility] [id number] [facility] 2017-07-08 00:00:00 2017-07-08 00:00:00 Outpatient [facility] [id number] [facility] 2017-07-04 00:00:00 2017-07-04 00:00:00 Outpatient [facility] [id number] [facility] 2017-06-24 00:00:00 2017-06-24 00:00:00 Outpatient [facility] [id number] [facility] 2017-06-24 00:00:00 2017-06-24 00:00:00 Outpatient [facility] [id number] [facility] 2017-06-18 21:12:00 2017-06-18 23:36:00 Departed Emergency Room ER SHAKA MACK [facility] [id number] [facility] 2017-06-16 00:00:00 2017-06-16 00:00:00 Outpatient [facility] [id number] [facility] 2017-06-15 00:00:00 2017-06-15 00:00:00 Outpatient [facility] [id number] [facility] 2017-06-08 00:00:00 2017-06-08 00:00:00 Outpatient [facility] [id number] [facility] 2017-06-02 00:00:00 2017-06-02 00:00:00 Outpatient [facility] [id number] [facility] 2017-05-25 10:00:29 2017-05-25 10:00:29 Outpatient [facility] [id number] [facility] 2017-05-25 00:00:00 2017-05-25 00:00:00 Outpatient [facility] [id number] [facility] 2017-05-25 00:00:00 2017-05-25 00:00:00 Outpatient [facility] [id number] [facility] 2017-05-24 00:00:00 2017-05-24 00:00:00 Outpatient [facility] [id number] [facility] 2017-05-18 00:00:00 2017-05-18 00:00:00 Outpatient [facility] [id number] [facility] 2017-05-17 10:58:45 2017-05-17 10:58:45 Outpatient [facility] [id number] [facility] 2017-05-17 08:19:46 2017-05-17 08:19:46 Outpatient [facility] [id number] [facility] 2017-05-11 00:00:00 2017-05-11 00:00:00 Outpatient [facility] [id number] [facility] 2017-05-05 12:11:36 2017-05-05 12:11:36 Outpatient [facility] [id number] [facility] 2017-05-05 10:30:09 2017-05-05 10:30:09 Outpatient [facility] [id number] [facility] 2017-04-25 09:44:48 2017-04-25 09:44:48 Outpatient [facility] [id number] [facility] 2017-04-25 00:00:00 2017-04-25 00:00:00 Outpatient [facility] [id number] [facility] 2017-04-22 00:00:00 2017-04-22 00:00:00 Outpatient [facility] [id number] [facility] 2017-04-19 09:44:58 2017-04-19 09:44:58 Emergency [facility] [id number] [facility] 2017-04-19 07:49:09 2017-04-19 07:49:09 Outpatient [facility] [id number] [facility] 2017-04-19 00:00:00 2017-04-19 00:00:00 Outpatient [facility] [id number] [facility] 2017-04-18 15:00:50 2017-04-18 15:00:50 Outpatient [facility] [id number] [facility] 2017-04-18 00:00:00 2017-04-18 00:00:00 Outpatient [facility] [id number] [facility] 2017-04-15 15:48:30 2017-04-15 15:48:30 Outpatient [facility] [id number] [facility] 2017-04-14 09:40:58 2017-04-14 09:40:58 Outpatient [facility] [id number] [facility] 2017-04-06 00:00:00 2017-04-06 00:00:00 Outpatient [facility] [id number] [facility] 2017-03-25 09:34:34 2017-03-25 09:34:34 Outpatient [facility] [id number] [facility] 2017-03-21 19:50:55 2017-03-21 19:50:55 Emergency [facility] [id number] [facility] 2017-03-21 19:31:52 2017-03-21 19:31:52 Emergency [facility] [id number] [facility] 2017-03-21 17:41:44 2017-03-21 17:41:44 Emergency [facility] [id number] [facility] 2017-03-09 09:29:04 2017-03-09 09:29:04 Outpatient [facility] [id number] [facility] 2017-03-03 09:41:43 2017-03-03 09:41:43 Emergency [facility] [id number] [facility] 2017-03-03 08:41:00 2017-03-03 08:41:00 Emergency [facility] [id number] [facility] 2017-02-14 10:56:29 2017-02-14 10:56:29 Outpatient [facility] [id number] [facility] 2017-02-12 09:20:00 2017-02-12 09:56:00 Departed Emergency Room [id number]-03 15:46:29 2017-02-03 15:46:29 Outpatient [facility] [id number] [facility] 2017-02-03 14:28:55 2017-02-03 14:28:55 Outpatient [facility] [id number] [facility] 2017-02-01 00:00:00 2017-02-01 00:00:00 Outpatient [facility] [id number] [facility] 2017-01-31 00:00:00 2017-01-31 00:00:00 Outpatient [facility] [id number] [facility] 2017-01-20 08:35:05 2017-01-20 08:35:05 Outpatient [facility] [id number] [facility] 2017-01-10 21:32:00 2017-01-11 04:51:00 Departed Emergency Room ER JENN MCKEON [facility] [id number] [facility] 2016-12-31 10:40:05 2016-12-31 10:40:05 Outpatient [facility] [id number] [facility] 2016-12-27 10:22:29 2016-12-27 10:22:29 Outpatient [facility] [id number] [facility] 2016-12-27 00:00:00 2016-12-27 00:00:00 Outpatient [facility] [id number] [facility] 2016-12-13 00:00:00 2016-12-13 00:00:00 Outpatient [facility] [id number] [facility] 2016-12-06 11:56:04 2016-12-06 11:56:04 Outpatient [facility] [id number] [facility] 2016-12-06 11:39:08 2016-12-06 11:39:08 Outpatient [facility] [id number] [facility] 2016-11-25 00:00:00 2016-11-25 00:00:00 Outpatient [facility] [id number] [facility] 2016-11-22 13:03:39 2016-11-22 13:03:39 Outpatient [facility] [id number] [facility] 2016-11-17 13:51:48 2016-11-17 13:51:48 Outpatient [facility] [id number] [facility] 2016-11-17 13:01:42 2016-11-17 13:01:42 Outpatient [facility] [id number] [facility] 2016-11-16 08:03:59 2016-11-16 08:03:59 Outpatient [facility] [id number] [facility] 2016-11-15 10:20:10 2016-11-15 10:20:10 Outpatient [facility] [id number] [facility] 2016-11-03 00:00:00 2016-11-03 00:00:00 Outpatient [facility] [id number] [facility] 2016-11-02 18:55:37 2016-11-02 18:55:37 Emergency [facility] [id number] [facility] 2016-09-17 19:08:40 2016-09-17 19:08:40 Outpatient [facility] [id number] [facility] 2016-09-16 10:39:26 2016-09-16 10:39:26 Outpatient [facility] [id number] [facility] 2016-09-08 00:00:00 2016-09-08 00:00:00 Outpatient [facility] [id number] [facility] 2016-08-31 00:00:00 2016-08-31 00:00:00 Outpatient [facility] [id number] [facility] 2016-08-20 00:00:00 2016-08-20 00:00:00 Outpatient [facility] [id number] [facility] 2016-08-13 10:55:00 2016-08-13 10:55:00 Outpatient [facility] [id number] [facility] 2016-08-13 09:07:42 2016-08-13 09:07:42 Outpatient [facility] [id number] [facility] 2016-07-29 12:16:51 2016-07-29 12:16:51 Outpatient [facility] [id number] [facility] 2016-07-29 11:08:31 2016-07-29 11:08:31 Outpatient [facility] [id number] [facility] 2016-07-29 00:00:00 2016-07-29 00:00:00 Outpatient [facility] [id number] [facility] 2016-07-29 00:00:00 2016-07-29 00:00:00 Outpatient [facility] [id number] [facility] 2016-07-22 12:52:01 2016-07-22 12:52:01 Outpatient [facility] [id number] [facility] Results Test Description Test Time Test Comments Results Result Comments Source ACETAMINOPHEN 2019-11-18 09:27:00 Test Item ACETAMINOPHEN (test code = ACET) < 10 mcg/mL 0-30 N A RANGE OF 10-30 UG/ML IS A THERAPEUTIC RANGE. TOXIC CONCENTRATIONS: >150 UG/ML AFTER 4 HOURS OF INGESTION > 50 UG/ML AFTER 12 HOURS OF INGESTION [id number] 09:27:00* Test Item Value Reference Range Interpretation Comments SALICYLATE (test code = CHRSI) 1.0 mg/dL 2.8-20.0 L - CT HEAD/BRAIN W/O [id number] 09:12:00 Name: MANDY ASCENCIO [facility] : 1985 Age/S: 34 / F [address] [facility] Unit #: [id number] Loc: [place], [place] [address] Phys: Kelly Bansal MD Acct: [id number] Dis Date: Status: REG ER PHONE #: [phone] Exam Date: 11/18/2019 0853 FAX #: [phone] Reason: fall EXAMS: CPT CODE: [id number] CT HEAD/BRAIN W/O CONT 29994 HISTORY: Seizure, status post fall TECHNIQUE: Noncontrast 2.[address] of the head. Examination acquired within 24 hours of arrival. Automated exposure control for dose reduction; DLP: 475 mGy-cm. COMPARISON: 11/18/19 FINDINGS: No acute hemorrhage. No CT evidence of acute infarct. No intracranial mass or mass effect. Mild parenchymal atrophy. No hydrocephalus. No extra-axial fluid collection. Visualized paranasal sinuses are clear. Mastoid air cells and middle ear cavities are clear. Orbital contents are unremarkable. Calvarium and skull base are intact. IMPRESSION: No acute intracranial process. LOCATION: [facility] at 0912 Reported and signed by: Nilda Yeager D.O. CC: Karthikeyan Soliman MD; Kelly Ruiz MD Technologist:Deisy CLEMONS DI: DLP: Trnscb Date/Time: 11/18/2019 (911) [email or web address] Orig Print D/T: S: 11/18/2019 (6424) PAGE 1 Signed Report COMPREHENSIVE METABOLIC PANEL 2019-11-18 05:09:00* Test Item Value Reference Range Interpretation Comments SODIUM (test code = NA) 142 mmol/L 135-148 N POTASSIUM (test code = K) 3.6 mmol/L 3.5-5.1 N CHLORIDE (test code = CL) 106 mmol/L 101-109 N CARBON DIOXIDE (test code = CO2) 27.4 mmol/L 21-32 N ANION GAP (test code = GAP) 12 mmol/L 10-20 N GLUCOSE (test code = GLU) 101 mg/dL 74-106 N BLOOD UREA NITROGEN (test code = BUN) 6 mg/dL 3-21 N CREATININE (test code = CREAT) 0.58 mg/dL 0.55-1.3 N BUN/CREATININE RATIO (test code = BUN/CREA) 10.3 10-20 N TOTAL PROTEIN (test code = PROT) 7.0 g/dL 6.5-8.4 N ALBUMIN (test code = ALB) 3.5 g/dL 3.4-4.8 N GLOBULIN (test code = GLOB) 3.5 G/DL 1-10 N ALBUMIN/GLOBULIN RATIO (test code = A/G) 1.0 RATIO 0.75-1.50 N CALCIUM (test code = CA) 8.2 mg/dL 8.4-10.2 L BILIRUBIN TOTAL (test code = BILT) 0.40 mg/dL 0.0-1.0 N SGOT/AST (test code = AST) 66 U/L 6-32 H SGPT/ALT (test code = ALT) 71 U/L 12-78 N N ote: Change in REFERENCE RANGE due to new reagent method. ALKALINE PHOSPHATASE TOTAL (test code = ALKP) 211 U/L 38-126 H HCG SERUM [id number] 05:09:00* Test Item Value Reference Range Interpretation Comments HCG SERUM QUAL (test code = HCGQL) NEGATIVE NEGATIVE This HCGQL test is NOT applicable for MALE patients.Check with nurse about probable order error.If Tumor Marker Test needed, nurse should order test "HCGTU"(Test #550.28550) [id number] 05:09:00* Test Item Value Reference Range Interpretation Comments TROPONIN-I (test code = TROPI) <0.015 ng/mL 0.00-0.056 N [id number] 05:09:00* Test Item Value Reference Range Interpretation Comments ALCOHOL (test code = ALC) 427 mg/dL 0.0-3.0 H -- INTERPRETIVE DATA NOTE: POSITIVE SCREENING RESULTS SHOULD BE CONSIDERED PRESUMPTIVE.WHEN COLLECTED FOR MEDICAL PURPOSES ONLY. SPECIMEN WILL NOTBE COLLECTED BY CHAIN OF CUSTODY.IF A CONFIRMATION OF POSITIVE RESULTS IS DESIRED, ACONFIRMATION TEST MUST BE REQUESTED BY THE PHYSICIAN AT ANADDITIONAL CHARGE TO THE PATIENT. CREATINE KINASE (CK)2019-11-18 05:05:00* Test Item Value Reference Range Interpretation Comments CREATINE KINASE (CK) (test code = CK) 157 U/L 26-192 N COMPREHENSIVE METABOLIC [id number] 05:03:00* Test Item Value Reference Range Interpretation Comments SODIUM (test code = NA) 142 mmol/L 135-148 N POTASSIUM (test code = K) 3.6 mmol/L 3.5-5.1 N CHLORIDE (test code = CL) 106 mmol/L 101-109 N CARBON DIOXIDE (test code = CO2) 27.4 mmol/L 21-32 N ANION GAP (test code = GAP) 12 mmol/L 10-20 N GLUCOSE (test code = GLU) 101 mg/dL 74-106 N BLOOD UREA NITROGEN (test code = BUN) 6 mg/dL 3-21 N CREATININE (test code = CREAT) 0.58 mg/dL 0.55-1.3 N BUN/CREATININE RATIO (test code = BUN/CREA) 10.3 10-20 N TOTAL PROTEIN (test code = PROT) gram/dL 6.4-8.2 ALBUMIN (test code = ALB) g/dL 3.4-5.0 GLOBULIN (test code = GLOB) g/dL 2.7-4.2 ALBUMIN/GLOBULIN RATIO (test code = A/G) 0.75-1.50 CALCIUM (test code = CA) 8.2 mg/dL 8.4-10.2 L BILIRUBIN TOTAL (test code = BILT) mg/dL 0.2-1.2 SGOT/AST (test code = AST) IUnit/L 15-37 SGPT/ALT (test code = ALT) U/L 10-69 ALKALINE PHOSPHATASE TOTAL (test code = ALKP) IUnit/L 45-117 HCG SERUM [id number] 05:03:00* Test Item Value Reference Range Interpretation Comments HCG SERUM QUAL (test code = HCGQL) NEGATIVE NEGATIVE This HCGQL test is NOT applicable for MALE patients.Check with nurse about probable order error.If Tumor Marker Test needed, nurse should order test "HCGTU"(Test #550.00948) [id number] 05:03:00* Test Item Value Reference Range Interpretation Comments TROPONIN-I (test code = TROPI) ng/mL 0-0.045 [id number] 05:03:00* Test Item Value Reference Range Interpretation Comments ALCOHOL (test code = ALC) mg/dL 0.0-3.0 COMPREHENSIVE METABOLIC [id number] 04:59:00* Test Item Value Reference Range Interpretation Comments SODIUM (test code = NA) 142 mmol/L 135-148 N POTASSIUM (test code = K) 3.6 mmol/L 3.5-5.1 N CHLORIDE (test code = CL) 106 mmol/L 101-109 N CARBON DIOXIDE (test code = CO2) 27.4 mmol/L 21-32 N ANION GAP (test code = GAP) 12 mmol/L 10-20 N GLUCOSE (test code = GLU) 101 mg/dL 74-106 N BLOOD UREA NITROGEN (test code = BUN) 6 mg/dL 3-21 N CREATININE (test code = CREAT) 0.58 mg/dL 0.55-1.3 N BUN/CREATININE RATIO (test code = BUN/CREA) 10.3 10-20 N TOTAL PROTEIN (test code = PROT) gram/dL 6.4-8.2 ALBUMIN (test code = ALB) g/dL 3.4-5.0 GLOBULIN (test code = GLOB) g/dL 2.7-4.2 ALBUMIN/GLOBULIN RATIO (test code = A/G) 0.75-1.50 CALCIUM (test code = CA) 8.2 mg/dL 8.4-10.2 L BILIRUBIN TOTAL (test code = BILT) mg/dL 0.2-1.2 SGOT/AST (test code = AST) IUnit/L 15-37 SGPT/ALT (test code = ALT) U/L 10-69 ALKALINE PHOSPHATASE TOTAL (test code = ALKP) IUnit/L 45-117 HCG SERUM [id number] 04:59:00* Test Item Value Reference Range Interpretation Comments HCG SERUM QUAL (test code = HCGQL) NEGATIVE [id number] 04:59:00* Test Item Value Reference Range Interpretation Comments TROPONIN-I (test code = TROPI) ng/mL 0-0.045 [id number] 04:59:00* Test Item Value Reference Range Interpretation Comments ALCOHOL (test code = ALC) mg/dL 0.0-3.0 - CT HEAD/BRAIN W/O [id number] 04:38:00 Name: MANDY ASCENCIO [facility] : 1985 Age/S: 34 / F [address] [facility] Unit #: [id number] Loc: [place] [address] Phys: Karthikeyan Soliman MD Acct: [id number] Dis Date: Status: PRE ER PHONE #: [phone] Exam Date: 11/18/2019 0427 FAX #: [phone] Reason: seizure, fall EXAMS: CPT CODE: [id number] CT HEAD/BRAIN W/O CONT 86630 EXAM: - CT HEAD/BRAIN W/O CONT HISTORY: Seizure. Fall. TECHNIQUE: Axial tomograms through the brain were obtained without intravenous contrast. This exam was performed according to our departmental dose-optimization program, which includes automated exposure control, adjustment of the mA and/or kV according to patient size and/or use of iterative reconstruction technique. COMPARISON: October 11, 2019. FINDINGS: There is no intracranial hemorrhage, mass, or mass effect. The v entricular system and sulci are age-appropriate. The osseous stru ctures and orbits, show no significant abnormalities. The visualized sin uses are relatively clear. The soft tissues are unremarkable. IMPRESSION: No evidence of intracranial hemorrhage. at 0438 Reported and signed by: Ron Liao MD CC: Karthikeyan Soliman MD Technologist:ROSARIO GOTTLIEB RT(R),CT CTDI: DLP: Trnscb Date/Time: 11/18/2019 ( 043) [email or web address] Orig Print D/T: S: 11/18/2019 (1029) PAGE 1 Signed Report URINALYSIS [id number] 04:29:00* Test Item Value Reference Range Interpretation Comments UA COLOR (test code = COLU) YELLOW YELLOW UA APPEARANCE (test code = APPU) CLEAR CLEAR UA GLUCOSE DIPSTICK (test code = DGLUU) norm mg/dL NEGATIVE UA BILIRUBIN DIPSTICK (test code = BILU) NEGATIVE mg/dL NEGATIVE UA KETONE DIPSTICK (test code = KETU) neg mg/dL NEGATIVE UA SPECIFIC GRAVITY (test code = SGU) 1.005 1.001-1.035 UA BLOOD DIPSTICK (test code = CINDY) neg Lucio/uL NEGATIVE UA PH DIPSTICK (test code = ANAIS) 6.0 5.0-8.0 UA PROTEIN DIPSTICK (test code = PROU) neg mg/dL Neg-15 UA UROBILINIOGEN DIPSTICK (test code = URO) norm mg/dL 0.0-0.2 UA NITRITE DIPSTICK (test code = ESTEVAN) NEGATIVE NEGATIVE UA LEUKOCYTE ESTERASE DIPSTICK (test code = LEUU) 25 Sunday/uL (Tra ce) uL NEGATIVE A UA WBC (test code = WBCU) 0-5 per HPF 0-5 UA RBC (test code = RBCU) NONE SEEN per HPF 0-5 UA EPITHELIAL CELLS (test code = EPIU) Few (2-5/hpf) per HPF Few UA BACTERIA (test code = BACU) FEW per HPF NONE URINALYSIS W/O [id number] 04:29:00* Test Item Value Reference Range Interpretation Comments UA MICROSCOPIC NEEDED? (test code = UAMICRO) YES DRUGS OF ABUSE SCREEN [id number] 04:29:00* Test Item Value Reference Range Interpretation Comments URN COCAINE (test code = COCAURN) NEGATIVE NEGATIVE URN CANNABINOIDS (test code = CANNABURN) NEGATIVE NEGATIVE URN AMPHETAMINE (test code = AMPHETURN) NEGATIVE NEGATIVE URN BARBITURATE (test code = BARBITURN) NEGATIVE NEGATIVE URN BENZODIAZEPINE (test code = BENZOURN) POSITIVE NEGATIVE A URN OPIATES (test code = OPIATURN) NEGATIVE NEGATIVE URN PHENCYCLIDINE (PCP) (test code = PHENCURN) NEGATIVE NEGATIV E URINALYSIS W/O [id number] 04:28:00* Test Item Value Reference Range Interpretation Comments UA COLOR (test code = COLU) YELLOW UA APPEARANCE (test code = APPU) CLEAR UA GLUCOSE DIPSTICK (test code = DGLUU) mg/dL NEGATIVE UA BILIRUBIN DIPSTICK (test code = BILU) mg/dL NEGATIVE UA KETONE DIPSTICK (test code = KETU) mg/dL NEGATIVE UA SPECIFIC GRAVITY (test code = SGU) 1.001-1.035 UA BLOOD DIPSTICK (test code = CINDY) Lucio/uL NEGATIVE UA PH DIPSTICK (test code = ANAIS) 5.0-8.0 UA PROTEIN DIPSTICK (test code = PROU) mg/dL Neg-15 UA UROBILINIOGEN DIPSTICK (test code = URO) mg/dL 0.0-0.2 UA NITRITE DIPSTICK (test code = ESTEVAN) NEGATIVE UA LEUKOCYTE ESTERASE DIPSTICK (test code = LEUU) uL NEGA TIVE A UA MICROSCOPIC NEEDED? (test code = UAMICRO) DRUGS OF ABUSE SCREEN [id number] 04:28:00* Test Item Value Reference Range Interpretation Comments URN COCAINE (test code = COCAURN) NEGATIVE NEGATIVE URN CANNABINOIDS (test code = CANNABURN) NEGATIVE NEGATIVE URN AMPHETAMINE (test code = AMPHETURN) NEGATIVE NEGATIVE URN BARBITURATE (test code = BARBITURN) NEGATIVE NEGATIVE URN BENZODIAZEPINE (test code = BENZOURN) POSITIVE NEGATIVE A URN OPIATES (test code = OPIATURN) NEGATIVE NEGATIVE URN PHENCYCLIDINE (PCP) (test code = PHENCURN) NEGATIVE NEGATIV E URINALYSIS [id number] 04:28:00* Test Item Value Reference Range Interpretation Comments UA COLOR (test code = COLU) YELLOW YELLOW UA APPEARANCE (test code = APPU) CLEAR CLEAR UA GLUCOSE DIPSTICK (test code = DGLUU) norm mg/dL NEGATIVE UA BILIRUBIN DIPSTICK (test code = BILU) NEGATIVE mg/dL NEGATIVE UA KETONE DIPSTICK (test code = KETU) neg mg/dL NEGATIVE UA SPECIFIC GRAVITY (test code = SGU) 1.005 1.001-1.035 UA BLOOD DIPSTICK (test code = CINDY) neg Lucio/uL NEGATIVE UA PH DIPSTICK (test code = ANAIS) 6.0 5.0-8.0 UA PROTEIN DIPSTICK (test code = PROU) neg mg/dL Neg-15 UA UROBILINIOGEN DIPSTICK (test code = URO) norm mg/dL 0.0-0.2 UA NITRITE DIPSTICK (test code = ESTEVAN) NEGATIVE NEGATIVE UA LEUKOCYTE ESTERASE DIPSTICK (test code = LEUU) 25 Sunday/uL (Tra ce) uL NEGATIVE A UA WBC (test code = WBCU) per HPF 0-5 UA RBC (test code = RBCU) per HPF 0-5 UA EPITHELIAL CELLS (test code = EPIU) per HPF Few UA BACTERIA (test code = BACU) per HPF NONE URINALYSIS W/O [id number] 04:28:00* Test Item Value Reference Range Interpretation Comments UA MICROSCOPIC NEEDED? (test code = UAMICRO) YES DRUGS OF ABUSE SCREEN [id number] 04:28:00* Test Item Value Reference Range Interpretation Comments URN COCAINE (test code = COCAURN) NEGATIVE NEGATIVE URN CANNABINOIDS (test code = CANNABURN) NEGATIVE NEGATIVE URN AMPHETAMINE (test code = AMPHETURN) NEGATIVE NEGATIVE URN BARBITURATE (test code = BARBITURN) NEGATIVE NEGATIVE URN BENZODIAZEPINE (test code = BENZOURN) POSITIVE NEGATIVE A URN OPIATES (test code = OPIATURN) NEGATIVE NEGATIVE URN PHENCYCLIDINE (PCP) (test code = PHENCURN) NEGATIVE NEGATIV E URINALYSIS [id number] 04:28:00* Test Item Value Reference Range Interpretation Comments UA COLOR (test code = COLU) YELLOW YELLOW UA APPEARANCE (test code = APPU) CLEAR CLEAR UA GLUCOSE DIPSTICK (test code = DGLUU) norm mg/dL NEGATIVE UA BILIRUBIN DIPSTICK (test code = BILU) NEGATIVE mg/dL NEGATIVE UA KETONE DIPSTICK (test code = KETU) neg mg/dL NEGATIVE UA SPECIFIC GRAVITY (test code = SGU) 1.005 1.001-1.035 UA BLOOD DIPSTICK (test code = CINDY) neg Lucio/uL NEGATIVE UA PH DIPSTICK (test code = ANAIS) 6.0 5.0-8.0 UA PROTEIN DIPSTICK (test code = PROU) neg mg/dL Neg-15 UA UROBILINIOGEN DIPSTICK (test code = URO) norm mg/dL 0.0-0.2 UA NITRITE DIPSTICK (test code = ESTEVAN) NEGATIVE NEGATIVE UA LEUKOCYTE ESTERASE DIPSTICK (test code = LEUU) 25 Sunday/uL (Tra ce) uL NEGATIVE A UA WBC (test code = WBCU) per HPF 0-5 UA RBC (test code = RBCU) per HPF 0-5 UA EPITHELIAL CELLS (test code = EPIU) per HPF Few UA BACTERIA (test code = BACU) per HPF NONE URINALYSIS W/O [id number] 04:28:00* Test Item Value Reference Range Interpretation Comments UA MICROSCOPIC NEEDED? (test code = UAMICRO) YES DRUGS OF ABUSE SCREEN [id number] 04:28:00* Test Item Value Reference Range Interpretation Comments URN COCAINE (test code = COCAURN) NEGATIVE NEGATIVE URN CANNABINOIDS (test code = CANNABURN) NEGATIVE NEGATIVE URN AMPHETAMINE (test code = AMPHETURN) NEGATIVE NEGATIVE URN BARBITURATE (test code = BARBITURN) NEGATIVE NEGATIVE URN BENZODIAZEPINE (test code = BENZOURN) POSITIVE NEGATIVE A URN OPIATES (test code = OPIATURN) NEGATIVE NEGATIVE URN PHENCYCLIDINE (PCP) (test code = PHENCURN) NEGATIVE NEGATIV E CBC W/AUTO [id number] 04:19:00* Test Item Value Reference Range Interpretation Comments WHITE BLOOD CELL (test code = WBC) 5.6 K/mm3 4.5-12.5 N RED BLOOD CELL (test code = RBC) 4.10 mill/mm3 3.7-5.2 N HEMOGLOBIN (test code = HGB) 13.6 gram/dL 11.5-15.5 N HEMATOCRIT (test code = HCT) 40.4 % 36.0-46.0 N MEAN CELL VOLUME (test code = MCV) 98.5 fL 80-98 H MEAN CELL HGB (test code = MCH) 33.2 picogram 27.0-33.0 H MEAN CELL HGB CONCETRATION (test code = MCHC) 33.7 gram/dL 33.0-36. 0 N RED CELL DISTRIBUTION WIDTH (test code = RDW) 15.0 % 11.6-16. 2 N RED CELL DISTRIBUTION WIDTH SD (test code = RDW-SD) 54.8 fL 37 .0-51.0 H PLATELET COUNT (test code = PLT) 152 K/mm3 150-450 N MEAN PLATELET VOLUME (test code = MPV) 9.6 fL 6.7-11.0 N NEUTROPHIL % (test code = NT%) 45.0 % 39.0-69.0 N LYMPHOCYTE % (test code = LY%) 47.6 % 25.0-55.0 N MONOCYTE % (test code = MO%) 5.9 % 0.0-10.0 N EOSINOPHIL % (test code = EO%) 0.4 % 0.0-5.0 N BASOPHIL % (test code = BA%) 0.7 % 0.0-1.0 N NEUTROPHIL # (test code = NT#) 2.50 K/mm3 1.8-7.7 N LYMPHOCYTE # (test code = LY#) 2.64 K/mm3 1.0-5.0 N MONOCYTE # (test code = MO#) 0.33 K/mm3 0-0.8 N EOSINOPHIL # (test code = EO#) 0.02 K/mm3 0.0-0.5 N BASOPHIL # (test code = BA#) 0.04 K/mm3 0.0-0.2 N BASIC METABOLIC [id number] 04:45:00* Test Item Value Reference Range Interpretation Comments SODIUM (test code = NA) 144 mmol/L 136-145 N POTASSIUM (test code = K) 3.5 mmol/L 3.5-5.1 N CHLORIDE (test code = CL) 109.0 mmol/L 98-107 H CARBON DIOXIDE (test code = CO2) 27.0 mmol/L 21-32 N ANION GAP (test code = GAP) 11.5 10-20 N GLUCOSE (test code = GLU) 77 mg/dL 74-106 N BLOOD UREA NITROGEN (test code = BUN) 12 mg/dL 7-18 N GLOMERULAR FILTRATION RATE (test code = GFR) > 60 mL/min >=60 Estimated GFR by using Modified MDRD formula.Chronic kidney disease is defined as either kidney damageor GFR <60 mL/min/1.73 m2 for >3 months. CREATININE (test code = CREAT) 0.60 mg/dL 0.55-1.02 N Note change in reference range due to change in reagent. BUN/CREATININE RATIO (test code = BUN/CREA) 18.6 10-20 N CALCIUM (test code = CA) 7.3 mg/dL 8.5-10.1 L HEPATIC FUNCTION [id number] 04:45:00* Test Item Value Reference Range Interpretation Comments TOTAL PROTEIN (test code = PROT) 6.8 gram/dL 6.4-8.2 N ALBUMIN (test code = ALB) 3.2 g/dL 3.4-5.0 L GLOBULIN (test code = GLOB) 3.6 gram/dL 2.7-4.2 N ALBUMIN/GLOBULIN RATIO (test code = A/G) 0.9 0.75-1.50 N BILIRUBIN TOTAL (test code = BILT) 0.40 mg/dL 0.0-1.0 N BILIRUBIN DIRECT (test code = BILD) 0.18 mg/dL 0.0-0.20 N SGOT/AST (test code = AST) 189 IUnit/L 15-37 H SGPT/ALT (test code = ALT) 85 IUnit/L 12-78 H ALKALINE PHOSPHATASE TOTAL (test code = ALKP) 139 IUnit/L 45-117 H Note change in reference range due to change in reagent. HCG SERUM [id number] 04:45:00* Test Item Value Reference Range Interpretation Comments HCG SERUM QUAL (test code = HCGQL) NEGATIVE NEGATIVE This HCGQL test is NOT applicable for MALE patients.Check with nurse about probable order error.If Tumor Marker Test needed, nurse should order test "HCGTU"(Test #550.95957) [id number] 04:45:00* Test Item Value Reference Range Interpretation Comments ACETAMINOPHEN (test code = ACET) < 10 mcg/mL 10-30 L A RANGE OF 10-30 mcg/mL IS A THERAPEUTIC RANGE. TOXIC CONCENTRATIONS: >150 mcg/mL AT 4 HOURS AFTER INGESTION >= 50 mcg/mL AT 12 HOURS AFTER INGESTION [id number] 04:45:00* Test Item Value Reference Range Interpretation Comments SALICYLATE (test code = CHRIS) < 1.7 mg/dL 2.8-20.0 L [id number] 04:45:00* Test Item Value Reference Range Interpretation Comments ALCOHOL (test code = ALC) 371 mg/dL 0.0-3.0 H -- INTERPRETIVE DATA NOTE: POSITIVE SCREENING RESULTS SHOULD BE CONSIDERED PRESUMPTIVE.WHEN COLLECTED FOR MEDICAL PURPOSES ONLY. SPECIMEN WILL NOTBE COLLECTED BY CHAIN OF CUSTODY.IF A CONFIRMATION OF POSITIVE RESULTS IS DESIRED, ACONFIRMATION TEST MUST BE REQUESTED BY THE PHYSICIAN AT ANADDITIONAL CHARGE TO THE PATIENT. URINALYSIS [id number] 04:16:00* Test Item Value Reference Range Interpretation Comments UA COLOR (test code = COLU) Light-Yellow YELLOW UA APPEARANCE (test code = APPU) CLEAR CLEAR UA GLUCOSE DIPSTICK (test code = DGLUU) NEGATIVE mg/dL NEGATIVE UA BILIRUBIN DIPSTICK (test code = BILU) NEGATIVE mg/dL NEGATIVE UA KETONE DIPSTICK (test code = KETU) NEGATIVE mg/dL NEGATIVE UA SPECIFIC GRAVITY (test code = SGU) 1.008 1.001-1.035 UA BLOOD DIPSTICK (test code = CINDY) Negative mg/dL NEGATIVE UA PH DIPSTICK (test code = ANAIS) 5.0 5.0-8.0 UA PROTEIN DIPSTICK (test code = [...] Urine Source? Clean CatchDRUGS OF ABUSE SCREEN [id number] 04:16:00* Test Item Value Reference Range Interpretation Comments [...] <300 ng/mL Urine Source? Clean CatchBASIC METABOLIC [id number] 03:39:00* Test Item Value Reference Range Interpretation Comments SODIUM (test code = NA) 144 mmol/L 136-145 N POTASSIUM (test code = K) 3.5 mmol/L 3.5-5.1 N CHLORIDE (test code = CL) 109.0 mmol/L 98-107 H CARBON DIOXIDE (test code = CO2) 27.0 mmol/L 21-32 N ANION GAP (test code = GAP) 11.5 10-20 N GLUCOSE (test code = GLU) 77 mg/dL 74-106 N BLOOD UREA NITROGEN (test code = BUN) 12 mg/dL 7-18 N GLOMERULAR FILTRATION RATE (test code = GFR) > 60 mL/min >=60 Estimated GFR by using Modified MDRD formula.Chronic kidney disease is defined as either kidney damageor GFR <60 mL/min/1.73 m2 for >3 months. CREATININE (test code = CREAT) 0.60 mg/dL 0.55-1.02 N Note change in reference range due to change in reagent. BUN/CREATININE RATIO (test code = BUN/CREA) 18.6 10-20 N CALCIUM (test code = CA) 7.3 mg/dL 8.5-10.1 L HEPATIC FUNCTION [id number] 03:39:00* Test Item Value Reference Range Interpretation Comments TOTAL PROTEIN (test code = PROT) 6.8 gram/dL 6.4-8.2 N ALBUMIN (test code = ALB) 3.2 g/dL 3.4-5.0 L GLOBULIN (test code = GLOB) 3.6 gram/dL 2.7-4.2 N ALBUMIN/GLOBULIN RATIO (test code = A/G) 0.9 0.75-1.50 N BILIRUBIN TOTAL (test code = BILT) 0.40 mg/dL 0.0-1.0 N BILIRUBIN DIRECT (test code = BILD) 0.18 mg/dL 0.0-0.20 N SGOT/AST (test code = AST) 189 IUnit/L 15-37 H SGPT/ALT (test code = ALT) 85 IUnit/L 12-78 H ALKALINE PHOSPHATASE TOTAL (test code = ALKP) 139 IUnit/L 45-117 H Note change in reference range due to change in reagent. HCG SERUM [id number] 03:39:00* Test Item Value Reference Range Interpretation Comments HCG SERUM QUAL (test code = HCGQL) NEGATIVE NEGATIVE This HCGQL test is NOT applicable for MALE patients.Check with nurse about probable order error.If Tumor Marker Test needed, nurse should order test "HCGTU"(Test #550.97370) [id number] 03:39:00* Test Item Value Reference Range Interpretation Comments ACETAMINOPHEN (test code = ACET) < 10 mcg/mL 10-30 L A RANGE OF 10-30 mcg/mL IS A THERAPEUTIC RANGE. TOXIC CONCENTRATIONS: >150 mcg/mL AT 4 HOURS AFTER INGESTION >= 50 mcg/mL AT 12 HOURS AFTER INGESTION [id number] 03:39:00* Test Item Value Reference Range Interpretation Comments SALICYLATE (test code = CHRIS) < 1.7 mg/dL 2.8-20.0 L [id number] 03:39:00* Test Item Value Reference Range Interpretation Comments ALCOHOL (test code = ALC) mg/dL 0-3 BASIC METABOLIC [id number] 03:34:00* Test Item Value Reference Range Interpretation Comments SODIUM (test code = NA) 144 mmol/L 136-145 N POTASSIUM (test code = K) 3.5 mmol/L 3.5-5.1 N CHLORIDE (test code = [...] code = CA) mg/dL 8.5-10.1 HEPATIC FUNCTION [id number] 03:34:00* Test Item Value Reference Range Interpretation Comments [...] code = ALKP) IUnit/L 45-117 HCG SERUM [id number] 03:34:00* Test Item Value Reference Range Interpretation Comments HCG SERUM QUAL (test code = HCGQL) NEGATIVE NEGATIVE This HCGQL test is NOT applicable for MALE patients.Check with nurse about probable order error.If Tumor Marker Test needed, nurse should order test "HCGTU"(Test #550.89965) [id number] 03:34:00* Test Item Value Reference Range Interpretation Comments ACETAMINOPHEN (test code = ACET) mcg/mL 10-30 [id number] 03:34:00* Test Item Value Reference Range Interpretation Comments SALICYLATE (test code = CHRIS) mg/dL 2.8-20.0 [id number] 03:34:00* Test Item Value Reference Range Interpretation Comments ALCOHOL (test code = ALC) mg/dL 0-3 BASIC METABOLIC [id number] 03:31:00* Test Item Value Reference Range Interpretation Comments SODIUM (test code = NA) 144 mmol/L 136-145 N POTASSIUM (test code = K) 3.5 mmol/L 3.5-5.1 N CHLORIDE (test code = [...] code = CA) mg/dL 8.5-10.1 HEPATIC FUNCTION [id number] 03:31:00* Test Item Value Reference Range Interpretation Comments [...] code = ALKP) IUnit/L 45-117 HCG SERUM [id number] 03:31:00* Test Item Value Reference Range Interpretation Comments HCG SERUM QUAL (test code = HCGQL) NEGATIVE [id number] 03:31:00* Test Item Value Reference Range Interpretation Comments ACETAMINOPHEN (test code = ACET) mcg/mL 10-30 [id number] 03:31:00* Test Item Value Reference Range Interpretation Comments SALICYLATE (test code = CHRIS) mg/dL 2.8-20.0 [id number] 03:31:00* Test Item Value Reference Range Interpretation Comments ALCOHOL (test code = ALC) mg/dL 0-3 URINALYSIS [id number] 03:31:00* Test Item Value Reference Range Interpretation Comments UA COLOR (test code = COLU) Light-Yellow YELLOW UA APPEARANCE (test code = APPU) CLEAR CLEAR UA GLUCOSE DIPSTICK (test code = DGLUU) NEGATIVE mg/dL NEGATIVE UA BILIRUBIN DIPSTICK (test code = BILU) NEGATIVE mg/dL NEGATIVE UA KETONE DIPSTICK (test code = KETU) NEGATIVE mg/dL NEGATIVE UA SPECIFIC GRAVITY (test code = SGU) 1.008 1.001-1.035 UA BLOOD DIPSTICK (test code = CINDY) Negative mg/dL NEGATIVE UA PH DIPSTICK (test code = ANAIS) 5.0 5.0-8.0 UA PROTEIN DIPSTICK (test code = [...] Urine Source? Clean CatchDRUGS OF ABUSE SCREEN [id number] 03:31:00* Test Item Value Reference Range Interpretation Comments [...] <300 ng/mL Urine Source? Clean CatchCBC W/O [id number] 03:29:00* Test Item Value Reference Range Interpretation Comments WHITE BLOOD CELL (test code = WBC) 4.2 K/mm3 4.5-12.5 L RED BLOOD CELL (test code = RBC) 4.09 mill/mm3 3.7-5.2 N HEMOGLOBIN (test code = HGB) 13.3 gram/dL 11.5-15.5 N HEMATOCRIT (test code = HCT) 39.5 % 36.0-46.0 N MEAN CELL VOLUME (test code = MCV) 96.6 fL 80-98 N MEAN CELL HGB (test code = MCH) 32.5 picogram 27.0-33.0 N MEAN CELL HGB CONCETRATION (test code = MCHC) 33.7 gram/dL 33.0-36. 0 N RED CELL DISTRIBUTION WIDTH (test code = RDW) 15.0 % 11.6-16. 2 N PLATELET COUNT (test code = PLT) 200 K/mm3 150-450 N MEAN PLATELET VOLUME (test code = MPV) 8.9 fL 6.7-11.0 N URINALYSIS [id number] 03:25:00* Test Item Value Reference Range Interpretation Comments UA COLOR (test code = COLU) Light-Yellow YELLOW UA APPEARANCE (test code = APPU) CLEAR CLEAR UA GLUCOSE DIPSTICK (test code = DGLUU) NEGATIVE mg/dL NEGATIVE UA BILIRUBIN DIPSTICK (test code = BILU) NEGATIVE mg/dL NEGATIVE UA KETONE DIPSTICK (test code = KETU) NEGATIVE mg/dL NEGATIVE UA SPECIFIC GRAVITY (test code = SGU) 1.008 1.001-1.035 UA BLOOD DIPSTICK (test code = CINDY) Negative mg/dL NEGATIVE UA PH DIPSTICK (test code = ANAIS) 5.0 5.0-8.0 UA PROTEIN DIPSTICK (test code = [...] Urine Source? Clean CatchDRUGS OF ABUSE SCREEN [id number] 03:25:00* Test Item Value Reference Range Interpretation Comments [...] = [place]) <300 ng/mL Urine Source? Clean CatchSerum or plasma ethanol measurement (mass/volume) 2019-10-27 21:15:00* Test Item Value Reference Range Interpretation Comments Ethyl Alcohol Level (test code = 5643-2) 84.0 0.0-10.0 [facility] [id number] 12:05:00 [facility] [place] [address] Patient Name: MANDY ASCENCIO MR #: [id number] : 1985 Age/Sex: 34/F Req #: [id number] Adm Physician: Ordered by: JENN MCKEON MD Report #: [id number] Location: ER Room/Bed: Procedure: [id number] CT/CT BRAIN WO Ex am Date: 10/27/19 Exam Time: 1149 REPORT STATUS: Signed CT BRAIN WO HISTORY: Alt ered mental status COMPARISON: Head CT 01/10/2017 TECHNIQUE: Noncon trast axial scans were obtained from skull base to the vertex. Coronal and sa gittal reconstructions obtained from the axial data. One or more of the follo wing dose reduction techniques were used: Automated exposure control, adjustme nt of the mA and/or kV according to patient size, and/or utilization of iterat beulah reconstruction technique. DISCUSSION: Scalp/Skull: Unremarkable. Brain sulci: Appropriate for patient's age. Ventricles: Normal in size and co nfiguration. No hydrocephalus. Extra-axial spaces: No masses or fluid collect ions. Parenchyma: No abnormal densities. No mass, hemorrhage, or large vascular territory acute infarct. Dural sinuses: No abnormal densiti es. Sellar/Suprasellar region: Intact. Skull base: Intact. Incidental find ings: None. IMPRESSION: No intracranial abnormalities. Sign ed by: Dr. Orlando Jane M.D. on 10/27/2019 12:08 PM Dictated By: ORLANDO JANE MD 1202 T ranscribed By: AGNIESZKA on 10/27/19 1207 COPY TO: JENN MCKEON MD Blood leukocytes automated count (number/volume)2019-10-27 09:58:00* Test Item Value Reference Range Interpretation Comments White Blood Count (test code = 6690-2) 6.47 4.8-10.8 [facility] automated count (number/volume)2019-10-27 09:58:00* Test Item Value Reference Range Interpretation Comments Red Blood Count (test code = 789-8) 4.17 3.6-5.1 [facility]Blood hemoglobin measurement (moles/volume)2019-10-27 09:58:00* Test Item Value Reference Range Interpretation Comments Hemoglobin (test code = 21645-1) 13.3 12.0-16.0 [facility] HospitalAutomated blood hematocrit (volume fraction)2019-10-27 09:58:00* Test Item Value Reference Range Interpretation Comments Hematocrit (test code = 4544-3) 39.2 34.2-44.1 [facility] HospitalAutomated erythrocyte mean corpuscular uewopc9928-75-34 09:58:00* Test Item Value Reference Range Interpretation Comments Mean Corpuscular Volume (test code = 787-2) 94.0 81-99 [facility] HospitalAutomated erythrocyte mean corpuscular hemoglobin (mass per erythrocyte)2019-10-27 09:58:00* Test Item Value Reference Range Interpretation Comments Mean Corpuscular Hemoglobin (test code = 785-6) 31.9 28-32 [facility] HospitalAutomated erythrocyte mean corpuscular hemoglobin concentration measurement (mass/volume)2019-10-27 09:58:00* Test Item Value Reference Range Interpretation Comments Mean Corpuscular Hemoglobin Concent (test code = 786-4) 33.9 31-35 [facility] HospitalRDW ImuAe-Gaz8892-63-22 09:58:00* Test Item Value Reference Range Interpretation Comments Red Cell Distribution Width (test code = 77723-1) 14.2 11.7 -14.4 [facility] HospitalAutomated blood platelet count (count/volume)2019-10-27 09:58:00* Test Item Value Reference Range Interpretation Comments Platelet Count (test code = 777-3) 173 140-360 [facility] HospitalAutomated blood segmented neutrophil count as percentage of total rkbhmafvua2064-19-06 09:58:00* Test Item Value Reference Range Interpretation Comments Neutrophils (%) (Auto) (test code = 42512-7) 33.8 38.7-80.0 [facility] HospitalAutomated blood lymphocyte count as percentage ot total lutrdmihty1154-18-25 09:58:00* Test Item Value Reference Range Interpretation Comments Lymphocytes (%) (Auto) (test code = 736-9) 53.0 18.0-39.1 [facility] HospitalAutomated blood monocyte count as percentage of total unfhwfkoyx5662-42-49 09:58:00* Test Item Value Reference Range Interpretation Comments Monocytes (%) (Auto) (test code = 5905-5) 11.1 4.4-11.3 [facility] HospitalAutomated blood eosinophil count as percentage of total ywwtauinbu1944-35-94 09:58:00* Test Item Value Reference Range Interpretation Comments Eosinophils (%) (Auto) (test code = 713-8) 0.9 0.0-6.0 [facility] HospitalAutomated blood basophil count as percentage of total zadwdsmnqz2585-03-02 09:58:00* Test Item Value Reference Range Interpretation Comments Basophils (%) (Auto) (test code = 706-2) 0.9 0.0-1.0 [facility] HospitalFluoroscopic procedure less than one hour neysjoso1240-03-23 09:58:00* Test Item Value Reference Range Interpretation Comments IM GRANULOCYTES % (test code = IM GRANULOCYTES %) 0.3 0.0- 1.0 [facility] HospitalAutomated blood neutrophil count 2019-10-27 09:58:00* Test Item Value Reference Range Interpretation Comments Neutrophils # (Auto) (test code = 751-8) 2.2 2.1-6.9 [facility] HospitalBlood lymphocytes count (number/volume) 2019-10-27 09:58:00* Test Item Value Reference Range Interpretation Comments Lymphocytes # (Auto) (test code = 88087-6) 3.4 1.0-3.2 [facility] HospitalBlood monocytes automated count (number/volume)2019-10-27 09:58:00* Test Item Value Reference Range Interpretation Comments Monocytes # (Auto) (test code = 742-7) 0.7 0.2-0.8 [facility] HospitalAutomated blood eosinophil count 2019-10-27 09:58:00* Test Item Value Reference Range Interpretation Comments Eosinophils # (Auto) (test code = 711-2) 0.1 0.0-0.4 [facility] HospitalAutomated blood basophil count (count/volume)2019-10-27 09:58:00* Test Item Value Reference Range Interpretation Comments Basophils # (Auto) (test code = 704-7) 0.1 0.0-0.1 [facility] HospitalFluoroscopic procedure less than one hour xuzazklu1927-22-40 09:58:00* Test Item Value Reference Range Interpretation Comments Absolute Immature Granulocyte (auto (chelsi t code = Absolute Immature Granulocyte (auto) 0.02 0-0.1 [facility] HospitalProthrombin time (PT) in platelet poor plasma by coagulation dulib2995-57-91 09:58:00* Test Item Value Reference Range Interpretation Comments Prothrombin Time (test code = 5902-2) 13.9 11.9-14.5 [facility] HospitalINR in Platelet poor plasma by Coagulation ocbxa6563-92-40 09:58:00* Test Item Value Reference Range Interpretation Comments Prothromb Time International Ratio (test code = 6301-6) 1.02 Oral Anticoagulant Therapy INR Values:1. Low Intensity Therapy 1.5 - 2.02 . Moderate Intensity Therapy 2.0 - 3.03. High Intensity Therapy(1) 2.5 - 3. 54. High Intensity Therapy(2) 3.0 - 4.05. Panic Value INR > 5.0 [facility] HospitalActivated partial thromboplastin time (aPTT) in platelet poor plasma by coagulation ycbwc9232-65-83 09:58:00* Test Item Value Reference Range Interpretation Comments Activated Partial Thromboplast Time (test code = 50665-8) 26.9 23.8-35.5 [facility] HospitalUrine color pcrdesffywafx4772-83-59 09:58:00* Test Item Value Reference Range Interpretation Comments Urine Color (test code = 5778-6) YELLOW YELLOW [facility] HospitalUrine lfimtmx7151-48-37 09:58:00* Test Item Value Reference Range Interpretation Comments Urine Clarity (test code = 00854-0) CLEAR CLEAR [facility] gravity of Urine by Test strip 2019-10-27 09:58:00* Test Item Value Reference Range Interpretation Comments Urine Specific [place] (test code = 5811-5) 1.015 1.010-1.02 5 [facility] HospitalUrine pH measurement by automated test jkrmx6150-03-44 09:58:00* Test Item Value Reference Range Interpretation Comments Urine pH (test code = 16264-5) 7 5-7 [facility] HospitalUrine leukocyte esterase detection by wwicurkf5712-85-97 09:58:00* Test Item Value Reference Range Interpretation Comments Urine Leukocyte Esterase (test code = 5799-2) NEGATIVE NEGATIVE [facility] HospitalUrine nitrite cmyuzvock8727-04-67 09:58:00* Test Item Value Reference Range Interpretation Comments Urine Nitrite (test code = 65306-4) NEGATIVE NEGATIVE [facility] HospitalUrine protein measurement by test strip (mass/volume)2019-10-27 09:58:00* Test Item Value Reference Range Interpretation Comments Urine Protein (test code = 5804-0) NEGATIVE NEGATIVE [facility] HospitalUrine glucose yefkxghat2005-84-46 09:58:00* Test Item Value Reference Range Interpretation Comments Urine Glucose (UA) (test code = 2349-9) NEGATIVE NEGATIVE [facility] HospitalUrine ketones detection by automated test mdvhk2608-78-03 09:58:00* Test Item Value Reference Range Interpretation Comments Urine Ketones (test code = 85351-3) NEGATIVE NEGATIVE [facility] HospitalUrine opiates screening yzri0903-99-02 09:58:00* Test Item Value Reference Range Interpretation Comments Urine Opiates Screen (test code = 17297-3) NEGATIVE NEGATIVE ALL TESTS PERFORMED MANUALLY ON [employer] TOX/SEE TESTEl Campo Memorial HospitalBarbiturates screen, oclql1984-45-68 09:58:00* Test Item Value Reference Range Interpretation Comments Urine Barbiturates Screen (test code = 296323176) NEGATIVE NEGA TIVE [facility] HospitalUrine phencyclidine detection by screening rhatlt4818-03-83 09:58:00* Test Item Value Reference Range Interpretation Comments Urine Phencyclidine Screen (test code = 71847-5) NEGATIVE NEGAT BEULAH [facility] HospitalUrine amphetamines detection by screen method > 1000 ng/rN6421-94-11 09:58:00* Test Item Value Reference Range Interpretation Comments Urine Amphetamines Screen (test code = 28579-4) NEGATIVE NEGATI VE [facility] HospitalFluoroscopic procedure less than one hour zkolrryl9725-28-96 09:58:00* Test Item Value Reference Range Interpretation Comments Urine Methamphetamines Screen (test code = Urine Metha mphetamines Screen) NEGATIVE NEGATIVE [facility] HospitalUrine benzodiazepines detection by screening uqoptw0512-45-75 09:58:00* Test Item Value Reference Range Interpretation Comments Urine Benzodiazepines Screen (test code = 28496-0) POSITIVE NEG ATIVE This test provides only a screen. Positive results should be repeated by a confi rmatory test.[facility] HospitalUrine cocaine measurement (mass/volume)2019-10-27 09:58:00* Test Item Value Reference Range Interpretation Comments Urine Cocaine Screen (test code = 3398-5) NEGATIVE NEGATIVE [facility] HospitalUrine cannabinoids detection by screening qtehpb0733-93-09 09:58:00* Test Item Value Reference Range Interpretation Comments Urine Cannabinoids Screen (test code = 44443-9) NEGATIVE NEGATI VE THESE RESULTS ARE FOR MEDICAL TREATMENT ONLYTHIS REPORT CONTAINS UNCONFIR MED SCREENING RESULTS*POSITIVE RESULTS WILL BE CONFIRMED BY REFERENCE LAB UPON R EQUEST CUT-OFFDRUG CLASS CONCENTRATION ng/mLAmphetamines 1000Methamphetamines 1000Cocaine 300Opiate 300Phencyc lidine 25Cannabinoid 50Barbiturates 300Benzodiazepine 300Methadone 300[facility] HospitalUrine methadone qtrnkc1555-96-14 09:58:00* Test Item Value Reference Range Interpretation Comments Urine Methadone Screen (test code = 14227-6) NEGATIVE NEGATIVE THESE RESULTS ARE FOR MEDICAL TREATMENT ONLYTHIS REPORT CONTAINS UNCONFIR MED SCREENING RESULTS*POSITIVE RESULTS WILL BE CONFIRMED BY REFERENCE LAB UPON R EQUEST CUT-OFFDRUG CLASS CONCENTRATION ng/mLAmphetamines 1000Methamphetamines 1000Cocaine Metabolite 300Opiate 300Phencyc lidine 25Cannabinoid 50Barbiturates 300Benzodiazepine 300Methadone 300[facility]viewUrine urobilinogen measurement by test strip (mass/volume)2019-10-27 09:58:00* Test Item Value Reference Range Interpretation Comments Urine Urobilinogen (test code = 69472-3) 0.2 0.2-1 [facility] HospitalUrine total bilirubin measurement (mass/volume)2019-10-27 09:58:00* Test Item Value Reference Range Interpretation Comments Urine Bilirubin (test code = 1978-6) NEGATIVE NEGATIVE [facility] HospitalUrine erythrocytes kmkkqjwwr0647-94-83 09:58:00* Test Item Value Reference Range Interpretation Comments Urine Blood (test code = 81399-8) TRACE NEGATIVE [facility] HospitalAutomated urine sediment leukocyte count by microscopy (number/high power field)2019-10-27 09:58:00* Test Item Value Reference Range Interpretation Comments Urine WBC (test code = 5821-4) 0-5 0-5 [facility] HospitalErythrocytes detection in urine sediment by light gstxxoshlu4920-27-28 09:58:00* Test Item Value Reference Range Interpretation Comments Urine RBC (test code = 63975-5) 0-5 0-5 [facility] HospitalBacteria detection in urine sediment by light sthmbhxdcr7005-06-33 09:58:00* Test Item Value Reference Range Interpretation Comments Urine Bacteria (test code = 25140-2) FEW NONE [facility] HospitalEpithelial cells detection in urine sediment by light uwnpehmwdk2212-56-88 09:58:00* Test Item Value Reference Range Interpretation Comments Urine Epithelial Cells (test code = 24467-8) FEW NONE [facility] HospitalUrine human chorionic gonadotropin (hCG) qxoxhluvz7095-99-35 09:58:00* Test Item Value Reference Range Interpretation Comments Urine Test (test code = 2106-3) NEGATIVE NEGATIVE [facility]um or plasma sodium measurement (moles/volume)2019-10-27 09:58:00* Test Item Value Reference Range Interpretation Comments Sodium Level (test code = 2951-2) 139 136-145 [facility] Dentonerum or plasma potassium measurement (moles/volume)2019-10-27 09:58:00* Test Item Value Reference Range Interpretation Comments Potassium Level (test code = 2823-3) 3.5 3.5-5.1 [facility] Dentonerum or plasma chloride measurement (moles/volume)2019-10-27 09:58:00* Test Item Value Reference Range Interpretation Comments Chloride Level (test code = 2075-0) 104 98-107 [facility] Dentonerum or plasma carbon dioxide, total measurement (moles/volume)2019-10-27 09:58:00* Test Item Value Reference Range Interpretation Comments Carbon Dioxide Level (test code = 2028-9) 21 22-29 [facility] Dentonerum or plasma anion bxa2749-72-03 09:58:00* Test Item Value Reference Range Interpretation Comments Anion Gap (test code = 98687-2) 17.5 8-16 [facility]onerum or plasma urea nitrogen measurement (mass/volume)2019-10-27 09:58:00* Test Item Value Reference Range Interpretation Comments Blood Urea Nitrogen (test code = 3094-0) 8 7-26 [facility]onerum or plasma creatinine measurement (mass/volume)2019-10-27 09:58:00* Test Item Value Reference Range Interpretation Comments Creatinine (test code = 2160-0) 0.79 0.57-1.11 [facility]onerum or plasma urea nitrogen/creatinine mass ebqzf9812-12-47 09:58:00* Test Item Value Reference Range Interpretation Comments BUN/Creatinine Ratio (test code = 3097-3) 10 6-25 [facility] HospitalEstimated glomerular filtration rate (GFR) pyhbrfjhcbqht9883-86-60 09:58:00* Test Item Value Reference Range Interpretation Comments Estimat Glomerular Filtration Rate (test code = 170416799) > 60 >60 Ranges were taken from the National Kidney Disease Education Program and the [facility] Kid[facility] Foundation literature.Reference ranges:60 or greater: Ngpcdb57-18 ( for 3 consecutive months): Chronic kidney disease 15 or less: Kidney failureEl Campo Memorial HospitalGlucose azxqzdxarfo1641-92-97 09:58:00* Test Item Value Reference Range Interpretation Comments Glucose Level (test code = VZK6612) 82 74-118 [facility]onerum or plasma calcium measurement (mass/volume)2019-10-27 09:58:00* Test Item Value Reference Range Interpretation Comments Calcium Level (test code = 70805-9) 8.3 8.4-10.2 [facility]onerum or plasma total bilirubin measurement (mass/volume)2019-10-27 09:58:00* Test Item Value Reference Range Interpretation Comments Total Bilirubin (test code = 1975-2) 0.3 0.2-1.2 [facility] HospitalFluoroscopic procedure less than one hour syeuudtc9307-42-14 09:58:00* Test Item Value Reference Range Interpretation Comments Aspartate Amino Transf (AST/SGOT) (test code = Aspartate Amino Transf (AST/SGOT)) 90 5-34 [facility]onerum or plasma alanine aminotransferase measurement (enzymatic activity/volume)2019-10-27 09:58:00* Test Item Value Reference Range Interpretation Comments Alanine Aminotransferase (ALT/SGPT) (test code = 1742-6) 60 0-55 [facility]onerum or plasma protein measurement (mass/volume)2019-10-27 09:58:00* Test Item Value Reference Range Interpretation Comments Total Protein (test code = 2885-2) 7.1 6.5-8.1 [facility]um or plasma albumin measurement (mass/volume)2019-10-27 09:58:00* Test Item Value Reference Range Interpretation Comments Albumin (test code = 1751-7) 3.8 3.5-5.0 [facility] HospitalPlasma globulin measurement (mass/volume) 2019-10-27 09:58:00* Test Item Value Reference Range Interpretation Comments Globulin (test code = 35460-4) 3.3 2.3-3.5 [facility]onerum or plasma albumin/globulin mass ktfbb7144-33-74 09:58:00* Test Item Value Reference Range Interpretation Comments Albumin/Globulin Ratio (test code = 1759-0) 1.2 0.8-2.0 [facility]onerum or plasma alkaline phosphatase measurement (enzymatic activity/volume)2019-10-27 09:58:00* Test Item Value Reference Range Interpretation Comments Alkaline Phosphatase (test code = 6768-6) 122 40-150 [facility]onerum or plasma creatine kinase measurement (enzymatic activity/volume)2019-10-27 09:58:00* Test Item Value Reference Range Interpretation Comments Creatine Kinase (test code = 2157-6) 183 29-168 [facility]onerum or plasma creatine kinase MB measurement (mass/volume)2019-10-27 09:58:00* Test Item Value Reference Range Interpretation Comments Creatine Kinase MB (test code = 82190-5) 2.00 0-5.0 [facility] HospitalTroponin I measurement by highly sensitive enzyme engpuhcxcel0991-79-74 09:58:00* Test Item Value Reference Range Interpretation Comments Troponin I (test code = 45483-4) 0.024 0-0.300 [facility]onerum or plasma acetaminophen measurement by screening method (mass/volume)2019-10-27 09:58:00* Test Item Value Reference Range Interpretation Comments Acetaminophen Level (test code = 94962-6) < 3.0 10-30 [facility] Dentonerum or plasma thyrotropin measurement by detection limit <= 0.005 miu/l (units/volume)2019-10-27 09:58:00* Test Item Value Reference Range Interpretation Comments Thyroid Stimulating Hormone (TSH) (test code = 87471-7) 4.092 0.350-4.940 [facility]onerum or plasma salicylates measurement (mass/volume)2019-10-27 09:58:00* Test Item Value Reference Range Interpretation Comments Salicylates Level (test code = 4024-6) < 5.0 0-30 [facility] HospitalURINALYSIS VINZHJBF5775-47-35 01:44:00* Test Item Value Reference Range Interpretation [...] Urine Source? Clean CatchDRUGS OF ABUSE SCREEN CQ9570-86-52 01:44:00* Test Item Value Reference Range Interpretation [...] NEGATIVE <300 ng/mL Urine Source? Clean CatchURINALYSIS FUECCXQG0560-00-73 01:35:00* Test Item Value Reference Range Interpretation [...] Urine Source? Clean CatchDRUGS OF ABUSE SCREEN [id number] 01:35:00* Test Item Value Reference Range Interpretation [...] <300 ng/mL Urine Source? Clean CatchHEPATIC FUNCTION [id number] 20:46:00* Test Item Value Reference Range Interpretation [...] reference range due to change in reagent. [id number] 20:46:00* Test Item Value Reference Range Interpretation [...] ANADDITIONAL CHARGE TO THE PATIENT. BASIC METABOLIC [id number] 20:44:00* Test Item Value Reference Range Interpretation [...] code = CA) 8.0 mg/dL 8.5-10.1 L QSCKWFJFE4038-79-81 20:44:00* Test Item Value Reference Range Interpretation Comments MAGNESIUM (test code = MAG) 2.3 mg/dL 1.8-2.4 N HCG SERUM [id number] 20:44:00* Test Item Value Reference Range Interpretation Comments HCG SERUM QUAL (test code = HCGQL) NEGATIVE NEGATIVE This HCGQL test is NOT applicable for MALE patients.Check with nurse about probable order error.If Tumor Marker Test needed, nurse should order test "HCGTU"(Test #[id number]) [id number] 20:44:00* Test Item Value Reference Range Interpretation Comments TROPONIN-I (test code = TROPI) <0.015 ng/mL 0-0.045 N BASIC METABOLIC [id number] 20:39:00* Test Item Value Reference Range Interpretation [...] CALCIUM (test code = CA) mg/dL 8.5-10.1 IWYWGENZJ4378-20-91 20:39:00* Test Item Value Reference Range Interpretation Comments MAGNESIUM (test code = MAG) mg/dL 1.8-2.4 HCG SERUM [id number] 20:39:00* Test Item Value Reference Range Interpretation Comments HCG SERUM QUAL (test code = HCGQL) NEGATIVE KUPPEXEO-[id number] 20:39:00* Test Item Value Reference Range Interpretation Comments TROPONIN-I (test code = TROPI) ng/mL 0-0.045 BASIC METABOLIC [id number] 20:39:00* Test Item Value Reference Range Interpretation [...] CALCIUM (test code = CA) mg/dL 8.5-10.1 TDUWNEGBQ0912-40-17 20:39:00* Test Item Value Reference Range Interpretation Comments MAGNESIUM (test code = MAG) mg/dL 1.8-2.4 HCG SERUM [id number] 20:39:00* Test Item Value Reference Range Interpretation Comments HCG SERUM QUAL (test code = HCGQL) NEGATIVE NEGATIVE This HCGQL test is NOT applicable for MALE patients.Check with nurse about probable order error.If Tumor Marker Test needed, nurse should order test "HCGTU"(Test #550.72189) [id number] 20:39:00* Test Item Value Reference Range Interpretation Comments TROPONIN-I (test code = TROPI) ng/mL 0-0.045 CBC W/O [id number] 20:30:00* Test Item Value Reference Range Interpretation [...] code = MPV) fL 6.7-11.0 CBC W/O [id number] 20:30:00* Test Item Value Reference Range Interpretation [...] = MPV) 9.1 fL 6.7-11.0 N URINALYSIS [id number] 21:57:00* Test Item Value Reference Range Interpretation [...] Urine Source? Clean CatchDRUGS OF ABUSE SCREEN [id number] 21:57:00* Test Item Value Reference Range Interpretation [...] Urine Source? Clean Catch- CT C-SPINE W/O [id number] 21:54:00 Name: MANDY ASCENCIO [facility] : 1985 Age/S: 33 / F [address] [facility] Unit #: [id number] Loc: [place] [address] Phys: Mariella Nelson DO Acct: [id number] Di s Date: Status: REG ER PHONE #: [phone] Exam Date: 10/11/20192146 FAX #: Reason: Neck Pain EXAMS: CPT CODE: [id number] CT C-SPINE W/O CONTRAST 43860 REASON FOR EXAM: Neck Pain EXAM ORDER [...] RT(R),CT; CTDI: DLP: Trnscb Date/Time: 10/11/2019 (2153) DiannaVTL Orig Print D/T: S: 10/11/2019 (2157) PAGE 1 Signed Report - CT HEAD/BRAIN W/O [id number] 21:52:00 Name: MANDY ASCENCIO [facility] : 1985 Age/S: 33 / F [address] [facility] Unit #: [id number] Loc: [place] [address] Phys: Mariella Nelson DO Acct: [id number] Di s Date: Status: REG ER PHONE #: Exam Date: 10/11/20192146 FAX #: Reason: head injury EXAMS: CPT CODE: [id number] CT HEAD/BRAIN W/O CONT 58434 REASON FOR EXAM: head injury EXAM ORDER DATE: 10/11/2019 8:23 PM Orderi ng: Lisha Nelson DO Attending:Lisha Nelson DO Location: [...] calvarium is intact. IMPRESSION: Unremarkable brain. at 2152 Reported and signed by: Toro Reed M.D. CC: Lisha Flores DO Technologist:Serena lerma RT(R),CT; CTDI: DLP: Trnscb Date/Time: 10/11/2019 (2151) natividad GALAVIZVTL Orig Print D/T: S: 10/11/2019 (4410) PAGE 1 Signed Report URINALYSIS [id number] 21:29:00* Test Item Value Reference Range Interpretation [...] Urine Source? Clean CatchDRUGS OF ABUSE SCREEN [id number] 21:29:00* Test Item Value Reference Range Interpretation [...] MET[place]URN) <300 ng/mL Urine Source? Clean CatchURINALYSIS [id number] 21:26:00* Test Item Value Reference Range Interpretation [...] Urine Source? Clean CatchDRUGS OF ABUSE SCREEN [id number] 21:26:00* Test Item Value Reference Range Interpretation [...] <300 ng/mL Urine Source? Clean CatchBASIC METABOLIC [id number] 21:23:00* Test Item Value Reference Range Interpretation [...] CA) 8.4 mg/dL 8.5-10.1 L HEPATIC FUNCTION [id number] 21:23:00* Test Item Value Reference Range Interpretation [...] due to change in reagent. HCG SERUM [id number] 21:23:00* Test Item Value Reference Range Interpretation Comments HCG SERUM QUAL (test code = HCGQL) NEGATIVE NEGATIVE This HCGQL test is NOT applicable for MALE patients.Check with nurse about probable order error.If Tumor Marker Test needed, nurse should order test "HCGTU"(Test #550.58883) [id number] 21:23:00* Test Item Value Reference Range Interpretation Comments ACETAMINOPHEN (test code = ACET) < 10 mcg/mL 10-30 L A RANGE OF 10-30 mcg/mL IS A THERAPEUTIC RANGE. TOXIC CONCENTRATIONS: >150 mcg/mL AT 4 HOURS AFTER INGESTION >= 50 mcg/mL AT 12 HOURS AFTER INGESTION [id number] 21:23:00* Test Item Value Reference Range Interpretation Comments SALICYLATE (test code = CHRIS) 2.3 mg/dL 2.8-20.0 L [id number] 21:23:00* Test Item Value Reference Range Interpretation [...] ANADDITIONAL CHARGE TO THE PATIENT. BASIC METABOLIC [id number] 21:21:00* Test Item Value Reference Range Interpretation [...] CA) 8.4 mg/dL 8.5-10.1 L HEPATIC FUNCTION [id number] 21:21:00* Test Item Value Reference Range Interpretation [...] due to change in reagent. HCG SERUM [id number] 21:21:00* Test Item Value Reference Range Interpretation Comments HCG SERUM QUAL (test code = HCGQL) NEGATIVE NEGATIVE This HCGQL test is NOT applicable for MALE patients.Check with nurse about probable order error.If Tumor Marker Test needed, nurse should order test "HCGTU"(Test #550.59548) [id number] 21:21:00* Test Item Value Reference Range Interpretation Comments ACETAMINOPHEN (test code = ACET) < 10 mcg/mL 10-30 L A RANGE OF 10-30 mcg/mL IS A THERAPEUTIC RANGE. TOXIC CONCENTRATIONS: >150 mcg/mL AT 4 HOURS AFTER INGESTION >= 50 mcg/mL AT 12 HOURS AFTER INGESTION [id number] 21:21:00* Test Item Value Reference Range Interpretation Comments SALICYLATE (test code = CHRIS) 2.3 mg/dL 2.8-20.0 L [id number] 21:21:00* Test Item Value Reference Range Interpretation Comments ALCOHOL (test code = ALC) mg/dL 0-3 [id number] 21:14:00* Test Item Value Reference Range Interpretation Comments PHOSPHORUS (test code = PHOS) 3.7 mg/dL 2.5-4.9 N [id number] 21:10:00* Test Item Value Reference Range Interpretation Comments MAGNESIUM (test code = MAG) 2.0 mg/dL 1.8-2.4 N BASIC METABOLIC [id number] 21:09:00* Test Item Value Reference Range Interpretation [...] code = CA) mg/dL 8.5-10.1 HEPATIC FUNCTION [id number] 21:09:00* Test Item Value Reference Range Interpretation [...] code = ALKP) IUnit/L 45-117 HCG SERUM [id number] 21:09:00* Test Item Value Reference Range Interpretation Comments HCG SERUM QUAL (test code = HCGQL) NEGATIVE NEGATIVE This HCGQL test is NOT applicable for MALE patients.Check with nurse about probable order error.If Tumor Marker Test needed, nurse should order test "HCGTU"(Test #550.80323) [id number] 21:09:00* Test Item Value Reference Range Interpretation Comments ACETAMINOPHEN (test code = ACET) mcg/mL 10-30 [id number] 21:09:00* Test Item Value Reference Range Interpretation Comments SALICYLATE (test code = CHRIS) mg/dL 2.8-20.0 [id number] 21:09:00* Test Item Value Reference Range Interpretation Comments ALCOHOL (test code = ALC) mg/dL 0-3 CBC W/O [id number] 21:07:00* Test Item Value Reference Range Interpretation [...] MPV) 9.0 fL 6.7-11.0 N BASIC METABOLIC [id number] 21:06:00* Test Item Value Reference Range Interpretation [...] code = CA) mg/dL 8.5-10.1 HEPATIC FUNCTION [id number] 21:06:00* Test Item Value Reference Range Interpretation [...] code = ALKP) IUnit/L 45-117 HCG SERUM [id number] 21:06:00* Test Item Value Reference Range Interpretation Comments HCG SERUM QUAL (test code = HCGQL) NEGATIVE NEGATIVE This HCGQL test is NOT applicable for MALE patients.Check with nurse about probable order error.If Tumor Marker Test needed, nurse should order test "HCGTU"(Test #550.72274) [id number] 21:06:00* Test Item Value Reference Range Interpretation Comments ACETAMINOPHEN (test code = ACET) mcg/mL 10-30 [id number] 21:06:00* Test Item Value Reference Range Interpretation Comments SALICYLATE (test code = CHRIS) mg/dL 2.8-20.0 [id number] 21:06:00* Test Item Value Reference Range Interpretation Comments ALCOHOL (test code = ALC) mg/dL 0-3 CBC W/O [id number] 21:04:00* Test Item Value Reference Range Interpretation [...] (test code = MPV) fL 6.7-11.0 URINALYSIS [id number] 03:11:00* Test Item Value Reference Range Interpretation [...] Urine Source? Clean CatchDRUGS OF ABUSE SCREEN [id number] 03:11:00* Test Item Value Reference Range Interpretation [...] NEGATIVE <300 ng/mL Urine Source? Clean CatchURINALYSIS [id number] 02:51:00* Test Item Value Reference Range Interpretation [...] Urine Source? Clean CatchDRUGS OF ABUSE SCREEN [id number] 02:51:00* Test Item Value Reference Range Interpretation [...] Urine Source? Clean Catch- CT HEAD/BRAIN W/O [id number] 00:49:00 Name: MANDY ASCENCIO [facility] : 1985 Age/S: 33 / F [address] Unit #: [id number] Loc: [place], [place] [address] Phys: Jeremias Raymundo MD Acct: [id number] Di s Date: Status: REG ER PHONE #: Exam Date: 10/07/201943 FAX #: [phone] Reason: HEADACHE EXAMS: CPT CODE: [id number] CT HEAD/BRAIN W/O CONT 75237 EXAM: CT BRAIN WITHOUT CO NTRAST INDICATION: [...] CRANDALL RT(R)(CT) CTDI: DLP: Trnscb Date/Time: 10/07/2019 (48) Pat D16 Orig Print D/T: S: 10/07/2019 (005) PAGE 1 Signed Report - CT C-SPINE W/O [id number] 00:48:00 Name: MANDY ASCENCIO [facility] : 1985 Age/S: 33 / F [address] Unit #: [id number] [place] [address] Phys: Yesika Raymundo MD Acct: [id number] Dis Date: Status: REG ER PHONE #: [phone] Exam Date: 10/07/201943 FAX #: [phone] Reason: Neck Pain EXAMS: CPT CODE: [id number] CT C-SPINE W/O CONTRAST 46923 Exam: CT C-spine. Location: H 12 History: [...] CRANDALL RT(R)(CT) CTDI: DLP: Trnscb Date/Time: 10/07/2019 (0048) t.SDR.FC Orig Print D/T: S: 10/07/2019 (0052) PAGE 1 Signed Report - XR CHEST 1 [id number] 00:04:00 FAX: Yesika Puente [phone] [place]: B St: REG Name: MANDY BARHTOLOMEW [facility] : [birth year] Age/S: 33/F [address] [facility] Unit #: [id number] Loc: [place] [address] Phys: Yesika Raymundo MD Acct: [id number] Dis Date: Status: REG ER PHONE #: [phone] Exam Date: 10/06/2019 234 FAX #: [phone] Reason: CHEST PAIN EXAMS: CPT CODE: [id number] XR CHEST 1 V 36883 EXAM: - XR CHEST 1 V HISTORY: Chest pain. FINDINGS: Single AP view of the chest is provided. Heart size and vascularity are within normal limits. The lungs are clear of focal consolidation. No effusion, pneumoth orax, or acute osseous abnormality. IMPRESSION: No radiographic evidence of acute cardiopulmonary process. Annei ranjeet Signed by Ron Liao MD on 10/07/2019 at 0004 Reported and signed by: Ron Liao MD CC: Britta Raymundo MD Technologist: Armin Patricio RT(R); ANUM GUARDADO RT(R) Trnscrd Date/Time/By: 10/07/2019 (0004) : By : [email or web address] Orig Print D/T: S: 10/07/2019 (0007) PAGE 1 Signed Report BASIC METABOLIC [id number] 00:02:00* Test Item Value Reference Range Interpretation [...] CA) 8.3 mg/dL 8.5-10.1 L HEPATIC FUNCTION [id number] 00:02:00* Test Item Value Reference Range Interpretation [...] reference range due to change in reagent. [id number] 00:02:00* Test Item Value Reference Range Interpretation Comments LIPASE (test code = LIP) 61 U/L 73.0-393.0 L HCG SERUM [id number] 00:02:00* Test Item Value Reference Range Interpretation Comments HCG SERUM QUAL (test code = HCGQL) NEGATIVE NEGATIVE This HCGQL test is NOT applicable for MALE patients.Check with nurse about probable order error.If Tumor Marker Test needed, nurse should order test "HCGTU"(Test #550.80071) [id number] 00:02:00* Test Item Value Reference Range Interpretation [...] ANADDITIONAL CHARGE TO THE PATIENT. BASIC METABOLIC [id number] 23:36:00* Test Item Value Reference Range Interpretation [...] CA) 8.3 mg/dL 8.5-10.1 L HEPATIC FUNCTION [id number] 23:36:00* Test Item Value Reference Range Interpretation [...] reference range due to change in reagent. [id number] 23:36:00* Test Item Value Reference Range Interpretation Comments LIPASE (test code = LIP) 61 U/L 73.0-393.0 L HCG SERUM [id number] 23:36:00* Test Item Value Reference Range Interpretation Comments HCG SERUM QUAL (test code = HCGQL) NEGATIVE NEGATIVE This HCGQL test is NOT applicable for MALE patients.Check with nurse about probable order error.If Tumor Marker Test needed, nurse should order test "HCGTU"(Test #550.31550) [id number] 23:36:00* Test Item Value Reference Range Interpretation Comments ALCOHOL (test code = ALC) mg/dL 0-3 BASIC METABOLIC [id number] 23:31:00* Test Item Value Reference Range Interpretation [...] CA) 8.3 mg/dL 8.5-10.1 L HEPATIC FUNCTION [id number] 23:31:00* Test Item Value Reference Range Interpretation [...] reference range due to change in reagent. [id number] 23:31:00* Test Item Value Reference Range Interpretation Comments LIPASE (test code = LIP) 61 U/L 73.0-393.0 L HCG SERUM [id number] 23:31:00* Test Item Value Reference Range Interpretation Comments HCG SERUM QUAL (test code = HCGQL) NEGATIVE [id number] 23:31:00* Test Item Value Reference Range Interpretation Comments ALCOHOL (test code = ALC) mg/dL 0-3 CBC W/O [id number] 23:16:00* Test Item Value Reference Range Interpretation [...] MPV) 9.2 fL 6.7-11.0 N CBC W/O [id number] 22:58:00* Test Item Value Reference Range Interpretation [...] MPV) fL 6.7-11.0 - CT L-SPINE W/O [id number] 16:13:00 Name: MANDY ASCENCIO [facility] : 1985 Age/S: 33 / F [address] [facility] Unit #: [id number] Loc: [place] [address] Phys: Mai Phillips MD Acct: [id number] Dis Date: Status: ADM IN PHONE #: [phone] Exam Date: 10/03/2019 4937 FAX #: [phone] Reason: H/o recent lumbar Vertebral fracture EXAMS: CPT CODE: [id number] CT L-SPINE W/O CONTRAST 42302 EXAM: CT of the lumbar spine without [...] L4/5 without neural foraminal stenosis. Location code: [facility] at 1613 Reported and s igned by: Quentin Ervin M.D. CC: Mai Phillips MD; Vianca Mcgregor MD Technologist:Papa Cobian RT(R),(MR),(CT) CTDI: DLP: Trnscb Date/Time: 10/03/2019 (1613) t.SDR.GRW Orig Print D/T: S: 10/03/2019 (1616) PAGE 1 Signed Report [id number] 05:10:00* Test Item Value Reference Range Interpretation Comments PHOSPHORUS (test code = PHOS) 2.5 mg/dL 2.5-4.9 N [id number] 05:10:00* Test Item Value Reference Range Interpretation Comments AMYLASE (test code = ANGELITA) 21 Unit/L 25-115 L [id number] 05:10:00* Test Item Value Reference Range Interpretation Comments MAGNESIUM (test code = MAG) 2.2 mg/dL 1.8-2.4 N VITAMIN [id number] 05:10:00* Test Item Value Reference Range Interpretation Comments VITAMIN B12 (test code = VITB12) 482 pg/mL 193-986 N FOLIC [id number] 05:10:00* Test Item Value Reference Range Interpretation Comments FOLIC ACID (test code = FOL) 107.6 ng/mL 3.10-17.50 H [id number] 04:02:00* Test Item Value Reference Range Interpretation Comments PHOSPHORUS (test code = PHOS) 2.5 mg/dL 2.5-4.9 N [id number] 04:02:00* Test Item Value Reference Range Interpretation Comments AMYLASE (test code = ANGELITA) 21 Unit/L 25-115 L [id number] 04:02:00* Test Item Value Reference Range Interpretation Comments MAGNESIUM (test code = MAG) 2.2 mg/dL 1.8-2.4 N VITAMIN [id number] 04:02:00* Test Item Value Reference Range Interpretation Comments VITAMIN B12 (test code = VITB12) 482 pg/mL 193-986 N FOLIC [id number] 04:02:00* Test Item Value Reference Range Interpretation Comments FOLIC ACID (test code = FOL) ng/mL 3.10-17.50 [id number] 03:24:00* Test Item Value Reference Range Interpretation Comments ALCOHOL (test code = ALC) 224 mg/dL 0.0-3.0 H -- INTERPRETIVE DATA NOTE: POSITIVE SCREENING RESULTS SHOULD BE CONSIDERED PRESUMPTIVE.WHEN COLLECTED FOR MEDICAL PURPOSES ONLY. SPECIMEN WILL NOTBE COLLECTED BY CHAIN OF CUSTODY.IF A CONFIRMATION OF POSITIVE RESULTS IS DESIRED, ACONFIRMATION TEST MUST BE REQUESTED BY THE PHYSICIAN AT ANADDITIONAL CHARGE TO THE PATIENT. [id number] 03:24:00* Test Item Value Reference Range Interpretation Comments AMMONIA (test code = AMM) 33 umol/L 11-32 H URINALYSIS [id number] 00:51:00* Test Item Value Reference Range Interpretation [...] Urine Source? Clean CatchDRUGS OF ABUSE SCREEN [id number] 00:51:00* Test Item Value Reference Range Interpretation [...] <300 ng/mL Urine Source? Clean CatchBASIC METABOLIC [id number] 00:51:00* Test Item Value Reference Range Interpretation [...] CA) 8.4 mg/dL 8.5-10.1 L HEPATIC FUNCTION [id number] 00:51:00* Test Item Value Reference Range Interpretation [...] code = CK) 579 IUnit/L 26-208 H [id number] 00:51:00* Test Item Value Reference Range Interpretation Comments LIPASE (test code = LIP) 103 U/L 73.0-393.0 N HCG SERUM [id number] 00:51:00* Test Item Value Reference Range Interpretation Comments HCG SERUM QUAL (test code = HCGQL) NEGATIVE NEGATIVE This HCGQL test is NOT applicable for MALE patients.Check with nurse about probable order error.If Tumor Marker Test needed, nurse should order test "HCGTU"(Test #550.47268) [id number] 00:51:00* Test Item Value Reference Range Interpretation Comments TROPONIN-I (test code = TROPI) <0.015 ng/mL 0-0.045 N [id number] 00:51:00* Test Item Value Reference Range Interpretation Comments ALCOHOL (test code = ALC) 288 mg/dL 0.0-3.0 H -- INTERPRETIVE DATA NOTE: POSITIVE SCREENING RESULTS SHOULD BE CONSIDERED PRESUMPTIVE.WHEN COLLECTED FOR MEDICAL PURPOSES ONLY. SPECIMEN WILL NOTBE COLLECTED BY CHAIN OF CUSTODY.IF A CONFIRMATION OF POSITIVE RESULTS IS DESIRED, ACONFIRMATION TEST MUST BE REQUESTED BY THE PHYSICIAN AT ANADDITIONAL CHARGE TO THE PATIENT. URINALYSIS [id number] 00:24:00* Test Item Value Reference Range Interpretation [...] Urine Source? Clean CatchDRUGS OF ABUSE SCREEN [id number] 00:24:00* Test Item Value Reference Range Interpretation [...] <300 ng/mL Urine Source? Clean CatchBASIC METABOLIC [id number] 00:18:00* Test Item Value Reference Range Interpretation [...] CA) 8.4 mg/dL 8.5-10.1 L HEPATIC FUNCTION [id number] 00:18:00* Test Item Value Reference Range Interpretation [...] code = CK) 579 IUnit/L 26-208 H [id number] 00:18:00* Test Item Value Reference Range Interpretation Comments LIPASE (test code = LIP) 103 U/L 73.0-393.0 N HCG SERUM [id number] 00:18:00* Test Item Value Reference Range Interpretation Comments HCG SERUM QUAL (test code = HCGQL) NEGATIVE [id number] 00:18:00* Test Item Value Reference Range Interpretation Comments TROPONIN-I (test code = TROPI) <0.015 ng/mL 0-0.045 N [id number] 00:18:00* Test Item Value Reference Range Interpretation [...] ANADDITIONAL CHARGE TO THE PATIENT. BASIC METABOLIC [id number] 23:57:00* Test Item Value Reference Range Interpretation [...] code = CA) mg/dL 8.5-10.1 HEPATIC FUNCTION [id number] 23:57:00* Test Item Value Reference Range Interpretation [...] (CK) (test code = CK) IUnit/L 26-208 [id number] 23:57:00* Test Item Value Reference Range Interpretation Comments LIPASE (test code = LIP) U/L 73.0-393.0 HCG SERUM [id number] 23:57:00* Test Item Value Reference Range Interpretation Comments HCG SERUM QUAL (test code = HCGQL) NEGATIVE [id number] 23:57:00* Test Item Value Reference Range Interpretation Comments TROPONIN-I (test code = TROPI) ng/mL 0-0.045 [id number] 23:57:00* Test Item Value Reference Range Interpretation Comments ALCOHOL (test code = ALC) mg/dL 0-3 CBC W/O [id number] 23:46:00* Test Item Value Reference Range Interpretation [...] code = MPV) 8.8 fL 6.7-11.0 N [id number] 23:38:00* Test Item Value Reference Range Interpretation Comments GLUBED (test code = GLUBED) 86 mg/dL 74-106 N Performed by certified chair post machine operator at [facility] UR HCG [id number] 12:11:00* Test Item Value Reference Range Interpretation Comments UR HCG QUAL (test code = HCGQLU) NEGATIVE This HCGQL test is NOT applicable for MALE patients.Check with nurse about probable order error.If Tumor Marker Test needed, nurse should order test "HCGTU"(Test #550.01929) DRUGS OF ABUSE SCREEN [id number] 12:11:00* Test Item Value Reference Range Interpretation [...] = [place]URN) NEGATIVE <300 ng/mL UR HCG [id number] 11:35:00* Test Item Value Reference Range Interpretation Comments UR HCG QUAL (test code = HCGQLU) NEGATIVE This HCGQL test is NOT applicable for MALE patients.Check with nurse about probable order error.If Tumor Marker Test needed, nurse should order test "HCGTU"(Test #550.22087) DRUGS OF ABUSE SCREEN [id number] 11:35:00* Test Item Value Reference Range Interpretation [...] code = MET[place]URN) <300 ng/mL COMPREHENSIVE METABOLIC [id number] 09:10:00* Test Item Value Reference Range Interpretation [...] reference range due to change in reagent. [id number] 09:10:00* Test Item Value Reference Range Interpretation Comments PHOSPHORUS (test code = PHOS) 3.0 mg/dL 2.5-4.9 N [id number] 09:10:00* Test Item Value Reference Range Interpretation Comments MAGNESIUM (test code = MAG) 1.9 mg/dL 1.8-2.4 N VITAMIN [id number] 09:10:00* Test Item Value Reference Range Interpretation Comments VITAMIN B12 (test code = VITB12) 259 pg/mL 193-986 N FOLIC [id number] 09:10:00* Test Item Value Reference Range Interpretation Comments FOLIC ACID (test code = FOL) 12.4 ng/mL 3.10-17.50 N THYROID STIMULATING [id number] 09:10:00* Test Item Value Reference Range Interpretation Comments THYROID STIMULATING HORMONE (test code = TSH) 1.480 uIU/mL 0.36-3.7 4 N TSH REFERENCE RANGES: EUTHYROID: 0.35 - 4.3 mIU/mL HYPO : > 5.5 mIU/mL HYPER : < 0.35 mIU/mL [id number] 09:10:00* Test Item Value Reference Range Interpretation [...] ANADDITIONAL CHARGE TO THE PATIENT. COMPREHENSIVE METABOLIC [id number] 08:39:00* Test Item Value Reference Range Interpretation [...] TOTAL (test code = ALKP) IUnit/L 45-117 [id number] 08:39:00* Test Item Value Reference Range Interpretation Comments PHOSPHORUS (test code = PHOS) mg/dL 2.5-4.9 [id number] 08:39:00* Test Item Value Reference Range Interpretation Comments MAGNESIUM (test code = MAG) mg/dL 1.8-2.4 VITAMIN [id number] 08:39:00* Test Item Value Reference Range Interpretation Comments VITAMIN B12 (test code = VITB12) pg/mL 193-986 FOLIC [id number] 08:39:00* Test Item Value Reference Range Interpretation Comments FOLIC ACID (test code = FOL) ng/mL 3.10-17.50 THYROID STIMULATING [id number] 08:39:00* Test Item Value Reference Range Interpretation Comments THYROID STIMULATING HORMONE (test code = TSH) uIU/mL 0.36-3.7 4 [id number] 08:39:00* Test Item Value Reference Range Interpretation Comments ALCOHOL (test code = ALC) mg/dL 0-3 [id number] 08:27:00* Test Item Value Reference Range Interpretation Comments AMYLASE (test code = ANGELITA) 24 Unit/L 25-115 L [id number] 08:27:00* Test Item Value Reference Range Interpretation Comments LIPASE (test code = LIP) 63 U/L 73.0-393.0 L [id number] 07:58:00* Test Item Value Reference Range Interpretation Comments AMMONIA (test code = AMM) 31 umol/L 11-32 N [id number] 07:46:00* Test Item Value Reference Range Interpretation [...] AT ANADDITIONAL CHARGE TO THE PATIENT. PROTHROMBIN [id number] 07:34:00* Test Item Value Reference Range Interpretation [...] (2.5-3.5) IS PATIENT ON ANTICOAGULANTS? NTHROMBOPLASTIN TIME [id number] 07:34:00* Test Item Value Reference Range Interpretation Comments THROMBOPLASTIN TIME PARTIAL (test code = PTT) 29.7 seconds 23.0-37. 0 N IS PATIENT ON ANTICOAGULANTS? NCBC W/AUTO [id number] 07:30:00* Test Item Value Reference Range Interpretation [...] = MDIFF) NO - CT HEAD/BRAIN W/O [id number] 04:12:00 Name: MANDY ASCENCIO [facility] : 1985 Age/S: 33 / F [address] [facility] Unit #: [id number] Loc: [place] [address] Phys: Geoffrey Bae MD Acct: [id number] Dis Date: Status: REG ER PHONE #: [phone] Exam Date: 10/01/2019 0402 FAX #: [phone] Reason: multiple seizure EXAMS: CPT CODE: [id number] CT HEAD/BRAIN W/O CONT 89943 EXAM: - CT HEAD/BRAIN W/O CONT LOCATION: [...] 1 Signed Report (CONTINUED) Name: MANDY ASCENCIO [facility] : 1985 Age/S: 33 / F [address] [facility] Unit #: [id number] Loc: [place] [address] Phys: Geoffrey Bae MD Acct: [id number] Dis Date: Status: REG ER PHONE #: [phone] Exam Date: 020 0402 FAX #: [phone] Reason: multiple seizure EXAMS: CPT CODE: [id number] CT HEAD/BRAIN W/O CONT 94667 <Continued> at 0412 Reported and signed by: Cesar Parmar M.D. CC: Geoffrey Bae MD; Edgar Lerma DO Technologist:KECIA DELGADO, RT; Dimas Blas CTDI: DLP: Trnscb Date/Time: 10/01/2019 (411) tJESIHV2 Orig Print D/T: S: 10/01/2019 (041) PAGE 2 Signed Report [id number] 18:22:00* Test Item Value Reference Range Interpretation [...] reported result: 391 mg/dLEdited by: MERY on 09/30/19:21054109/30/19 1749: ALCOHOL previously reported as: 391 H mg/dL [id number] 17:17:00* Test Item Value Reference Range Interpretation Comments ALCOHOL (test code = ALC) 391 mg/dL 0.0-3.0 H -- INTERPRETIVE DATA NOTE: POSITIVE SCREENING RESULTS SHOULD BE CONSIDERED PRESUMPTIVE.WHEN COLLECTED FOR MEDICAL PURPOSES ONLY. SPECIMEN WILL NOTBE COLLECTED BY CHAIN OF CUSTODY.IF A CONFIRMATION OF POSITIVE RESULTS IS DESIRED, ACONFIRMATION TEST MUST BE REQUESTED BY THE PHYSICIAN AT ANADDITIONAL CHARGE TO THE PATIENT. URINALYSIS [id number] 11:40:00* Test Item Value Reference Range Interpretation [...] W REFLEX (test code = LEUUR) NEGATIVE [place]/uL NEGATIVE UA WBC (test code = WBCU) 0-5 per HPF 0-5 UA RBC (test code = RBCU) 0-2 #/HPF 0-5 UA EPITHELIAL CELLS (test code = EPIU) FEW per HPF FEW UA BACTERIA (test code = BACU) NONE SEEN #/HPF NONE Urine Source? Clean CatchDRUGS OF ABUSE SCREEN [id number] 11:40:00* Test Item Value Reference Range Interpretation [...] NEGATIVE <300 ng/mL Urine Source? Clean CatchURINALYSIS [id number] 11:37:00* Test Item Value Reference Range Interpretation [...] Urine Source? Clean CatchDRUGS OF ABUSE SCREEN [id number] 11:37:00* Test Item Value Reference Range Interpretation [...] [place]) <300 ng/mL Urine Source? Clean CatchURINALYSIS [id number] 11:37:00* Test Item Value Reference Range Interpretation [...] Urine Source? Clean CatchDRUGS OF ABUSE SCREEN [id number] 11:37:00* Test Item Value Reference Range Interpretation [...] <300 ng/mL Urine Source? Clean CatchBASIC METABOLIC [id number] 10:54:00* Test Item Value Reference Range Interpretation [...] CA) 7.6 mg/dL 8.5-10.1 L HEPATIC FUNCTION [id number] 10:54:00* Test Item Value Reference Range Interpretation [...] due to change in reagent. HCG SERUM [id number] 10:54:00* Test Item Value Reference Range Interpretation Comments HCG SERUM QUAL (test code = HCGQL) NEGATIVE NEGATIVE \\This HCGQL test is NOT applicable for MALE patients.Check with nurse about probable order error.If Tumor Marker Test needed, nurse should order test "HCGTU"(Test #[id number]) [id number] 10:54:00* Test Item Value Reference Range Interpretation Comments ACETAMINOPHEN (test code = ACET) < 10 mcg/mL 10-30 L A RANGE OF 10-30 mcg/mL IS A THERAPEUTIC RANGE. TOXIC CONCENTRATIONS: >150 mcg/mL AT 4 HOURS AFTER INGESTION >= 50 mcg/mL AT 12 HOURS AFTER INGESTION [id number] 10:54:00* Test Item Value Reference Range Interpretation Comments SALICYLATE (test code = CHRIS) 1.9 mg/dL 2.8-20.0 L [id number] 10:54:00* Test Item Value Reference Range Interpretation [...] ANADDITIONAL CHARGE TO THE PATIENT. BASIC METABOLIC [id number] 10:46:00* Test Item Value Reference Range Interpretation [...] CA) 7.6 mg/dL 8.5-10.1 L HEPATIC FUNCTION [id number] 10:46:00* Test Item Value Reference Range Interpretation [...] due to change in reagent. HCG SERUM [id number] 10:46:00* Test Item Value Reference Range Interpretation Comments HCG SERUM QUAL (test code = HCGQL) NEGATIVE NEGATIVE \\This HCGQL test is NOT applicable for MALE patients.Check with nurse about probable order error.If Tumor Marker Test needed, nurse should order test "HCGTU"(Test #550.58376) [id number] 10:46:00* Test Item Value Reference Range Interpretation Comments ACETAMINOPHEN (test code = ACET) < 10 mcg/mL 10-30 L A RANGE OF 10-30 mcg/mL IS A THERAPEUTIC RANGE. TOXIC CONCENTRATIONS: >150 mcg/mL AT 4 HOURS AFTER INGESTION >= 50 mcg/mL AT 12 HOURS AFTER INGESTION [id number] 10:46:00* Test Item Value Reference Range Interpretation Comments SALICYLATE (test code = CHRIS) 1.9 mg/dL 2.8-20.0 L [id number] 10:46:00* Test Item Value Reference Range Interpretation Comments ALCOHOL (test code = ALC) mg/dL 0-3 CBC W/O [id number] 10:39:00* Test Item Value Reference Range Interpretation [...] MPV) 8.6 fL 6.7-11.0 N BASIC METABOLIC [id number] 10:31:00* Test Item Value Reference Range Interpretation [...] code = CA) mg/dL 8.5-10.1 HEPATIC FUNCTION [id number] 10:31:00* Test Item Value Reference Range Interpretation [...] code = ALKP) IUnit/L 45-117 HCG SERUM [id number] 10:31:00* Test Item Value Reference Range Interpretation Comments HCG SERUM QUAL (test code = HCGQL) NEGATIVE NEGATIVE \\This HCGQL test is NOT applicable for MALE patients.Check with nurse about probable order error.If Tumor Marker Test needed, nurse should order test "HCGTU"(Test #550.04025) [id number] 10:31:00* Test Item Value Reference Range Interpretation Comments ACETAMINOPHEN (test code = ACET) mcg/mL 10-30 [id number] 10:31:00* Test Item Value Reference Range Interpretation Comments SALICYLATE (test code = CHRIS) mg/dL 2.8-20.0 [id number] 10:31:00* Test Item Value Reference Range Interpretation Comments ALCOHOL (test code = ALC) mg/dL 0-3 BASIC METABOLIC [id number] 10:29:00* Test Item Value Reference Range Interpretation [...] code = CA) mg/dL 8.5-10.1 HEPATIC FUNCTION [id number] 10:29:00* Test Item Value Reference Range Interpretation [...] code = ALKP) IUnit/L 45-117 HCG SERUM [id number] 10:29:00* Test Item Value Reference Range Interpretation Comments HCG SERUM QUAL (test code = HCGQL) NEGATIVE NEGATIVE \\This HCGQL test is NOT applicable for MALE patients.Check with nurse about probable order error.If Tumor Marker Test needed, nurse should order test "HCGTU"(Test #550.05497) [id number] 10:29:00* Test Item Value Reference Range Interpretation Comments ACETAMINOPHEN (test code = ACET) mcg/mL 10-30 [id number] 10:29:00* Test Item Value Reference Range Interpretation Comments SALICYLATE (test code = CHRIS) mg/dL 2.8-20.0 [id number] 10:29:00* Test Item Value Reference Range Interpretation Comments ALCOHOL (test code = ALC) mg/dL 0-3 URINALYSIS [id number] 06:30:00* Test Item Value Reference Range Interpretation [...] Urine Source? Clean CatchDRUGS OF ABUSE SCREEN [id number] 06:30:00* Test Item Value Reference Range Interpretation [...] <300 ng/mL Urine Source? Clean CatchBASIC METABOLIC [id number] 06:09:00* Test Item Value Reference Range Interpretation [...] CA) 8.6 mg/dL 8.5-10.1 N HEPATIC FUNCTION [id number] 06:09:00* Test Item Value Reference Range Interpretation [...] due to change in reagent. HCG SERUM [id number] 06:09:00* Test Item Value Reference Range Interpretation Comments HCG SERUM QUAL (test code = HCGQL) NEGATIVE NEGATIVE This HCGQL test is NOT applicable for MALE patients.Check with nurse about probable order error.If Tumor Marker Test needed, nurse should order test "HCGTU"(Test #550.90549) [id number] 06:09:00* Test Item Value Reference Range Interpretation Comments ACETAMINOPHEN (test code = ACET) < 10 mcg/mL 10-30 L A RANGE OF 10-30 mcg/mL IS A THERAPEUTIC RANGE. TOXIC CONCENTRATIONS: >150 mcg/mL AT 4 HOURS AFTER INGESTION >= 50 mcg/mL AT 12 HOURS AFTER INGESTION [id number] 06:09:00* Test Item Value Reference Range Interpretation Comments SALICYLATE (test code = CHRIS) < 1.7 mg/dL 2.8-20.0 L [id number] 06:09:00* Test Item Value Reference Range Interpretation [...] ANADDITIONAL CHARGE TO THE PATIENT. BASIC METABOLIC [id number] 06:02:00* Test Item Value Reference Range Interpretation [...] CA) 8.6 mg/dL 8.5-10.1 N HEPATIC FUNCTION [id number] 06:02:00* Test Item Value Reference Range Interpretation [...] due to change in reagent. HCG SERUM [id number] 06:02:00* Test Item Value Reference Range Interpretation Comments HCG SERUM QUAL (test code = HCGQL) NEGATIVE NEGATIVE This HCGQL test is NOT applicable for MALE patients.Check with nurse about probable order error.If Tumor Marker Test needed, nurse should order test "HCGTU"(Test #550.61791) [id number] 06:02:00* Test Item Value Reference Range Interpretation Comments ACETAMINOPHEN (test code = ACET) < 10 mcg/mL 10-30 L A RANGE OF 10-30 mcg/mL IS A THERAPEUTIC RANGE. TOXIC CONCENTRATIONS: >150 mcg/mL AT 4 HOURS AFTER INGESTION >= 50 mcg/mL AT 12 HOURS AFTER INGESTION [id number] 06:02:00* Test Item Value Reference Range Interpretation Comments SALICYLATE (test code = CHRIS) < 1.7 mg/dL 2.8-20.0 L [id number] 06:02:00* Test Item Value Reference Range Interpretation Comments ALCOHOL (test code = ALC) mg/dL 0-3 URINALYSIS [id number] 05:56:00* Test Item Value Reference Range Interpretation [...] Urine Source? Clean CatchDRUGS OF ABUSE SCREEN [id number] 05:56:00* Test Item Value Reference Range Interpretation [...] <300 ng/mL Urine Source? Clean CatchBASIC METABOLIC [id number] 05:54:00* Test Item Value Reference Range Interpretation [...] code = CA) mg/dL 8.5-10.1 HEPATIC FUNCTION [id number] 05:54:00* Test Item Value Reference Range Interpretation [...] code = ALKP) IUnit/L 45-117 HCG SERUM [id number] 05:54:00* Test Item Value Reference Range Interpretation Comments HCG SERUM QUAL (test code = HCGQL) NEGATIVE NEGATIVE This HCGQL test is NOT applicable for MALE patients.Check with nurse about probable order error.If Tumor Marker Test needed, nurse should order test "HCGTU"(Test #550.26320) [id number] 05:54:00* Test Item Value Reference Range Interpretation Comments ACETAMINOPHEN (test code = ACET) mcg/mL 10-30 [id number] 05:54:00* Test Item Value Reference Range Interpretation Comments SALICYLATE (test code = CHRIS) mg/dL 2.8-20.0 [id number] 05:54:00* Test Item Value Reference Range Interpretation Comments ALCOHOL (test code = ALC) mg/dL 0-3 CBC W/O [id number] 05:46:00* Test Item Value Reference Range Interpretation [...] MPV) 8.9 fL 6.7-11.0 N BASIC METABOLIC [id number] 05:41:00* Test Item Value Reference Range Interpretation [...] code = CA) mg/dL 8.5-10.1 HEPATIC FUNCTION [id number] 05:41:00* Test Item Value Reference Range Interpretation [...] code = ALKP) IUnit/L 45-117 HCG SERUM [id number] 05:41:00* Test Item Value Reference Range Interpretation Comments HCG SERUM QUAL (test code = HCGQL) NEGATIVE [id number] 05:41:00* Test Item Value Reference Range Interpretation Comments ACETAMINOPHEN (test code = ACET) mcg/mL 10-30 [id number] 05:41:00* Test Item Value Reference Range Interpretation Comments SALICYLATE (test code = CHRIS) mg/dL 2.8-20.0 [id number] 05:41:00* Test Item Value Reference Range Interpretation Comments ALCOHOL (test code = ALC) mg/dL 0-3 [id number] 19:51:00* Test Item Value Reference Range Interpretation Comments GLUBED (test code = GLUBED) 80 mg/dL 74-106 N Performed by certified chair post machine operator at [facility] [id number] 12:26:00* Test Item Value Reference Range Interpretation Comments GLUBED (test code = GLUBED) 75 mg/dL 74-106 N Performed by certified chair post machine operator at [facility] [id number] 06:47:00* Test Item Value Reference Range Interpretation Comments GLUBED (test code = GLUBED) 84 mg/dL 74-106 N Performed by certified chair post machine operator at [facility] URINALYSIS [id number] 04:40:00* Test Item Value Reference Range Interpretation [...] Urine Source? Clean CatchDRUGS OF ABUSE SCREEN [id number] 04:40:00* Test Item Value Reference Range Interpretation [...] <300 ng/mL Urine Source? Clean CatchBASIC METABOLIC [id number] 04:40:00* Test Item Value Reference Range Interpretation [...] CA) 7.9 mg/dL 8.5-10.1 L HEPATIC FUNCTION [id number] 04:40:00* Test Item Value Reference Range Interpretation [...] due to change in reagent. HCG SERUM [id number] 04:40:00* Test Item Value Reference Range Interpretation [...] 200,000 MIU/ML2-3 MONTHS AFTER CONCEPTION 10,000-100,000 MIU/ML [id number] 04:40:00* Test Item Value Reference Range Interpretation Comments TROPONIN-I (test code = TROPI) <0.015 ng/mL 0-0.045 N [id number] 04:40:00* Test Item Value Reference Range Interpretation Comments ACETAMINOPHEN (test code = ACET) < 10 mcg/mL 10-30 L A RANGE OF 10-30 mcg/mL IS A THERAPEUTIC RANGE. TOXIC CONCENTRATIONS: >150 mcg/mL AT 4 HOURS AFTER INGESTION >= 50 mcg/mL AT 12 HOURS AFTER INGESTION [id number] 04:40:00* Test Item Value Reference Range Interpretation Comments SALICYLATE (test code = CHRIS) 2.5 mg/dL 2.8-20.0 L [id number] 04:40:00* Test Item Value Reference Range Interpretation Comments ALCOHOL (test code = ALC) 488 mg/dL 0.0-3.0 H -- INTERPRETIVE DATA NOTE: POSITIVE SCREENING RESULTS SHOULD BE CONSIDERED PRESUMPTIVE.WHEN COLLECTED FOR MEDICAL PURPOSES ONLY. SPECIMEN WILL NOTBE COLLECTED BY CHAIN OF CUSTODY.IF A CONFIRMATION OF POSITIVE RESULTS IS DESIRED, ACONFIRMATION TEST MUST BE REQUESTED BY THE PHYSICIAN AT ANADDITIONAL CHARGE TO THE PATIENT. URINALYSIS [id number] 04:17:00* Test Item Value Reference Range Interpretation [...] Urine Source? Clean CatchDRUGS OF ABUSE SCREEN [id number] 04:17:00* Test Item Value Reference Range Interpretation [...] Urine Source? Clean Catch- CT HEAD/BRAIN W/O [id number] 04:12:00 Name: MANDY ASCENCIO [facility] : 1985 Age/S: 33 / F [address] [facility] Unit #: [id number] Loc: [place] [address] Phys: Blaze Bae MD Acct: [id number] Di s Date: Status: REG ER PHONE #: Exam Date: 09/24/2019 0400 FAX #: [phone] Reason: CONFUSION EXAMS: CPT CODE: [id number] CT HEAD/BRAIN W/O CONT 92266 EXAM: CT Head without con trast Location: [...] 1 Signed Report (CONTINUED) Name: MANDY ASCENCIO [facility] : 1985 Age/S: 33 / F [address] [facility] Unit #: [id number] Loc: [place] [address] Phys: Cindy Bae MD Acct: [id number] Dis Date: Status: REG ER PHONE #: Exam Date: 09/24/2019 040 FAX #: Reason: CONFUSION EXAMS: CPT CODE: [id number] CT HEAD/BRAIN W/O CONT 99710 <Continued> CC: Geoffrey Bae MD Technologist:KECIA DELGADO, RT; Dimas Blas CTDI: DLP: Trnscb Date/Time: 09/24/2019 (411) [email or web address] Orig Print D/T: S: 09/24/2019 (414) PAGE 2 Signed Report BASIC METABOLIC [id number] 04:06:00* Test Item Value Reference Range Interpretation [...] code = CA) mg/dL 8.5-10.1 HEPATIC FUNCTION [id number] 04:06:00* Test Item Value Reference Range Interpretation [...] code = ALKP) IUnit/L 45-117 HCG SERUM [id number] 04:06:00* Test Item Value Reference Range Interpretation Comments HCG SERUM BETA (test code = HCG) mIU/mL 0-3 [id number] 04:06:00* Test Item Value Reference Range Interpretation Comments TROPONIN-I (test code = TROPI) ng/mL 0-0.045 [id number] 04:06:00* Test Item Value Reference Range Interpretation Comments ACETAMINOPHEN (test code = ACET) mcg/mL 10-30 [id number] 04:06:00* Test Item Value Reference Range Interpretation Comments SALICYLATE (test code = CHRIS) mg/dL 2.8-20.0 [id number] 04:06:00* Test Item Value Reference Range Interpretation Comments ALCOHOL (test code = ALC) mg/dL 0-3 CBC W/O [id number] 03:54:00* Test Item Value Reference Range Interpretation [...] MPV) 9.0 fL 6.7-11.0 N Lamotrigine (Lamictal), [id number] 18:08:00* Test Item Value Reference Range Interpretation Comments Lamotrigine, Serum (test code = 6948-4) 4.4 ug/mL 2-20 This test was developed and its performance characteristicsdetermined by [employer]. It has not been cleared or approvedby the Food and Drug Administration. Detection Limit = 1.0 DAGOBERTO (test code = DAGOBERTO) Performed at: [facility] [employer] [id number] Director: Abner Osullivan MD, Phone: [phone] [facility] GLUCOSE POC docked [id number] 17:17:00* Test Item Value Reference Range Interpretation Comments Glucose POC (test code = 92922591) 73 mg/dL 74-106 L Lab Interpretation (test code = 60167-6) [facility]normal [facility] [id number] 15:33:11IMPRESSION: No acute thoracic abnormality. If the [...] agrees with the resident'sinterpretation.Dic tated By: Tyler Lyles MD, 09/06/2019 3:19 PMI have reviewed the study and agree with the findings in this report.Signed By: Camilla Johansen MD, 09/06/2019 3:33 PM [facility]onavirus, CoVID-19, [id number] 11:28:00* Test Item Value Reference Range Interpretation Comments COVID-19 (SARS-COV-2) (test code = 81069-4) Not Detected Not Detect ed INTERPRETATION: No [...] DAGOBERTO (test code = DAGOBERTO) COMMENT: This [employer] Xpert Xpress SARS-CoV-2 real-time PCR test was developed, and its performance characteristics determined by the [facility] molecular diagnostic Laboratory and is acceptable for patient testing. It has been approved for patient testing by the FDA under the Emergency Use Authorization pathway. This laboratory is certified under federal CLIA regulations to perform this type of high complexity testing. Lab Interpretation (test code = 09208-3) Normal [facility] BMP POC docked [id number] 02:10:00* Test Item Value Reference Range Interpretation Comments Sodium POC (test code = 75350787) 144 mmol/L 136-145 Potassium POC (test code = 24430896) 3.5 mmol/L 3.5-5.1 Chloride POC (test code = 39093540) 106 mmol/L 98-107 TCO2 POC (test code = 52738391) 27 mmol/L 21-32 --- Urea Nitrogen POC (test code = 31274940) <3 7-18 L Glucose POC (test code = 98365161) 91 mg/dL 74-106 Hemoglobin POC (test code = 51296594) 14.3 g/dL 12-16 Hematocrit POC (test code = 46788407) 42.0 % 37-47 Lab Interpretation (test code = 10829-8) Abnormal [facility] HEAD W/O [id number] 01:51:13IMPRESSION: Head CT:No intracranial abnormalities. Maxillofacial CT:1. [...] Facial trauma, fx suspected Nasal pain (accession [id number]),Seizure (accession [id number])Comparison studies: Maxillofacial CTs dated [...] report.Signed By: Orlando Jane MD, 09/06/2019 1:51 [facility] MAXILLOFACIAL W/O [id number] 01:51:13IMPRESSION: Head CT:No intracranial abnormalities. Maxillofacial CT:1. [...] Facial trauma, fx suspected Nasal pain (accession [id number]),Seizure (accession [id number])Comparison studies: Maxillofacial CTs dated [...] report.Signed By: Orlando Jane MD, 09/06/2019 1:51 [facility] Drug [id number] 01:07:00* Test Item Value Reference Range Interpretation Comments Opiate, Ur (test code = 46954-2) Negative Negative Calibrated Standard: Morphine Positive if urine level > or = 300 ng/dL Amphetamine (test code = 13136-0) Negative Negative Calibrated Standard: D- Methamphetamine Positive if urine level > or = 1000 ng/mL Barbiturate (test code = 84410-5) Negative Negative Calibrated Standard: Secobarbital Positive if urine level is > or = 200 ng/mL Benzodiazepine (test code = 37476-1) Negative Negative Calibrated Standard: Lormethazepam Positive if urine level is > or = 200 ng/mL Cocaine (test code = 86404-4) Negative Negative Calibrated Standard: Benzoylecgonine Positive if urine level > or = 300 ng/dL PCP (test code = 17596-9) Negative Negative C alibrated Standard: Phencyclidine Positive if urine level > or = 25 ng/dL Cannabinoid (test code = 33554-5) Negative Negative Calibrated Standard: 11 nor-delta(9)-THC carboxylic acid Positive if urine level > or = 50 ng/mL Lab Interpretation (test code = 10186-1) Normal [facility] HospitalWassymNeqxzks9107-20-29 01:03:00* Test Item Value Reference Range Interpretation Comments ALCOHOL, SERUM - RESULT (BKR) (test code = 13769699) 0.35 g/dL < 0.10 Lab Interpretation (test code = 56698-8) Abnormal [facility] HospitalQitxqtEjleihycusxsa2210-32-80 01:01:00* Test Item Value Reference Range Interpretation Comments Acetaminophen (test code = 21490307) <10.00 10-30 L Please refer to acetaminophen nomogram. Lab Interpretation (test code = 27021-5) Abnormal [place] BsbcqzJvibxm9374-72-14 01:01:00* Test Item Value Reference Range Interpretation Comments Lipase (test code = 44080398) 40 U/L 11-82 Lab Interpretation (test code = 01403-8) Normal [facility] HospitalIvgvqqXiggbjczcl2329-24-51 01:01:00* Test Item Value Reference Range Interpretation Comments Salicylate (test code = 67504226) <2.5 2.8-30 L Lab Interpretation (test code = 21344-4) Abnormal [facility] HospitalComprehensive Metab Pnl(Excludes DBIL)2019-09-06 01:01:00* Test Item Value Reference Range Interpretation Comments Sodium (test code = 2951-2) 141 mmol/L 136-145 Potassium (test code = 2823-3) 5.5 mmol/L 3.5-5.1 H Chloride (test code = 2075-0) 106 mmol/L 98-107 CO2 (test code = 73607899) 25 mmol/L 21-31 Glucose (test code = 65964186) 88 mg/dL 70-110 Calcium (test code = 77695864) 8.3 mg/dL 8.6-10.3 L Urea Nitrogen (test code = 29831215) 5.0 mg/dL 7-25 L Creatinine (test code = 15403131) 0.5 mg/dL 0.6-1.2 L Alkaline Phosphatase (test code = 32633033) 112 U/L 34-104 H ALT (test code = 90460884) 19 U/L 7-52 AST (test code = 88339182) 43 U/L 13-39 H Total Protein (test code = 2885-2) 7.5 g/dL 6-8.3 GFR, Estimated (test code = 69169913) >90 >=90 mL/min/1.73 m2 Albumin (test code = 89692-2) 4.6 g/dL 3.7-5.3 Anion Gap (test code = 06517092) 10 mmol/L 5-16 Lab Interpretation (test code = 04574-7) Abnormal [place] [facility] Owjn8524-15-12 00:38:00* Test Item Value Reference Range Interpretation Comments (test code = 38210843) Negative Negative Lab Interpretation (test code = 10215-6) Normal [facility]/Dxmy2069-66-59 00:29:00* Test Item Value Reference Range Interpretation [...] 32.8 g/dL 32-36 RDW (test code = 15443-4) 50.2 fL 36.4-46.3 H Platelet (test code = 777-3) 287 K/uL 150-400 Mean Platelet Volume (test code = 42509-4) 9.2 fL 9.4-12.4 L Percent NRBC (test code = 41750021) 0.0 % Neutrophil (test code = 770-8) 42.5 % 34-70 Lymphs (test code = 736-9) 48.5 % 20-50 Monocytes (test code = 5905-5) 6.0 % 5-12 Eos (test code = 713-8) 1.4 % 0.7-5 Basos (test code = 706-2) 1.2 % 0.1-1.2 Immature Granulocytes (test code = 63544484) 0.4 % 0-0.5 Neutrophils (Absolute) (test code = 54996680) 2.43 K/uL 1.56-6.1 3 Lymphs (Absolute) (test code = 49793110) 2.77 K/uL 1.18-3.74 Monocytes(Absolute) (test code = 81809796) 0.34 K/uL 0.24-0.36 Eos (Absolute) (test code = 50177571) 0.08 K/uL 0.04-0.36 Baso (Absolute) (test code = 97068203) 0.07 K/uL 0.01-0.08 Immature Grans (Abs) (test code = 63931039) 0.02 K/uL 0-0.03 Absolute NRBC (test code = 59131746) 0.00 K/uL Lab Interpretation (test code = 55712-2) Abnormal [facility]- XR PELVIS 1/2 [id number] 10:39:00 FAX: Mercy Zaidi [phone] [place]: St: REG Name: MANDY BARTHOLOMEW [facility] : [birth year] Age/S: 33/F [address] [place] [address] Unit #: [id number] Loc: G.ERS[address] [place] [address] Phys: Mercy Daigle Acct: [id number] Dis Date: Status: REG ER PHONE #: [phone] Exam Date: 08/04/2019 1027 FAX #: [phone] Reason: pain s/p slip in shower. Old rib fractures EXAMS: CPT CODE: [id number] XR PELVIS 1/2 VIEWS 44561 Pelvis single view 08/04/2019 HISTORY: Pelvic pain Comparison is made to CT performed 07/19/2019 FINDINGS: Sacroiliac joints and pubic symphysis are inta ct. Superior and inferior rami are intact. Femoral heads are well rounde d. No dislocation is present. IMPRESSION: No acut e injury to bony pelvis identified. SL: [id number] at 1039 Reported and signed by: Karthikeyan Camilo M.D. CC: Mercy PARRA Technologist: Erma Sheppard, RT(R); Kezia Cary RT(R) Trnscrd Date/Time/By: 08/04/2019 (1039) : By: Erika HaskinsBJM4 Orig Print D/T: S: 08/04/2019 (1042) PAG E 1 Signed Report - XR CHEST 1 [id number] 10:38:00 FAX: Mercy Zaidi [phone] [place]: St: REG Name: MANDY BARTHOLOMEW [facility] : [birth year] Age/S: 33/F [address] [place] [address] Unit #: [id number] Loc: G.[address] [address] Phys: Mercy Daigle Acct: [id number] Dis Date: Status: REG ER PHONE #: [phone] Exam Date: 08/04/2019 1027 FAX #: [phone] Reason: pain s/p slip in shower. Old rib fractures EXAMS: CPT CODE: [id number] XR CHEST 1 V 43772 PROCEDURE: CHEST SINGLE VIEW INDICATION: Fall. Left rib pain. COMPARISON: 07/30/2019 FINDINGS: The lungs are clear. The pleura, cardiomediastinal silhouette and bony thorax are normal. No vascular congestion is present. IMPRESSION: No acute cardiopulmonary process. SL: [id number] at 1038 Reported and signed by: Karthikeyan Camilo M.D. CC: [facility] PARRA Technologist: Erma Sheppard, RT(R); Mali Cary RT(R) Trnscrd Date/Time/By: (7774) : By: [email or web address] Orig Print D/T: S: 08/04/2019 (6368) PAGE 1 Signed Report - XR L-SPINE 2/3 [id number] 10:36:00 FAX: Mercy Zaidi [phone] [place]: St: REG Name: MANDY BARTHOLOMEW [facility] : [birth year] Age/S: 33/F [address] [place] [address] Unit #: [id number] Loc: [place] [address] Phys: Mercy Daigle Acct: [id number] Dis Date: Status: REG ER PHONE #: [phone] Exam Date: 08/04/2019 1027 FAX #: [phone] Reason: pain s/p slip in shower. Old rib fractures EXAMS: CPT CODE: [id number] XR L-SPINE 2/3 VIEWS 20456 Lumbar spine 2 views 08/04/2019 HISTORY: Fall. Back pain. FINDINGS: There is normal al ignment and curvature of the lumbar spine. Vertebral body heights and int ervertebral disc spaces are maintained. Pedicles and spinous processes ar e within normal limits. IMPRESSION: No acute injury to l umbar spine identified. SL: [id number] Electronically Signed by Mónica Camilo on 0 08/04/2019 at 1036 Reported and signed by: Diego Camilo M.D. CC: Mercy PARRA Technologist: Erma Sheppard, RT(R); Mali gomez RT(R) Trnscrd Date/Time/By: 08/04/2019 (2755) : By: [email or web address] Orig Print D/T: S: 08/04/2019 (1039) PAGE 1 Signed Report - CT HEAD/BRAIN W/O [id number] 00:23:00 Name: MANDY ASCENCIO [facility] : 1985 Age/S: 33 / F [place] Unit #: [id number] Loc: [place] [address] Phys: Lisha Nelson DO Acct: [id number] Dis Date: Status: REG ER PHONE #: [phone] Exam Date: 07/31/201912 FAX #: [phone] Reason: intoxication EXAMS: CPT CODE: [id number] CT HEAD/BRAIN W/O CONT 27229 Examination: Noncontrast head CT Indication: Intoxication Comparison: [...] 1 Signed Report (CONTINUED) Name: MANDY ASCENCIO [facility] : 1985 Age/S: 33 / F [place] Unit #: [id number] Loc: [place] [address] Phys: Lisha Nelson DO Acct: [id number] Dis Date: Status: REG ER PHONE #: [phone] Exam Date: 07/31/201912 FAX #: [phone] Reason: intoxication EXAMS: CPT CODE: [id number] CT HEAD/BRAIN W/O CONT 83335 <Continued> at 0023 Reported and signed by: Kim Schumacher M.D. CC: Lisha Nelson DO Technologist:CY CLEMONS CTDI: DLP: Trnscb Date/Time: 07/31/2019 (22) [email or web address] Orig Print D/T: S: 07/31/2019 (0026) PAGE 2 Signed Report BASIC METABOLIC [id number] 00:01:00* Test Item Value Reference Range Interpretation [...] CA) 8.5 mg/dL 8.5-10.1 N HEPATIC FUNCTION [id number] 00:01:00* Test Item Value Reference Range Interpretation [...] due to change in reagent. HCG SERUM [id number] 00:01:00* Test Item Value Reference Range Interpretation Comments HCG SERUM QUAL (test code = HCGQL) NEGATIVE NEGATIVE This HCGQL test is NOT applicable for MALE patients.Check with nurse about probable order error.If Tumor Marker Test needed, nurse should order test "HCGTU"(Test #550.05517) [id number] 00:01:00* Test Item Value Reference Range Interpretation Comments ACETAMINOPHEN (test code = ACET) < 10 mcg/mL 10-30 L A RANGE OF 10-30 mcg/mL IS A THERAPEUTIC RANGE. TOXIC CONCENTRATIONS: >150 mcg/mL AT 4 HOURS AFTER INGESTION >= 50 mcg/mL AT 12 HOURS AFTER INGESTION [id number] 00:01:00* Test Item Value Reference Range Interpretation Comments SALICYLATE (test code = CHRIS) 2.8 mg/dL 2.8-20.0 N [id number] 00:01:00* Test Item Value Reference Range Interpretation Comments ALCOHOL (test code = ALC) 371 mg/dL 0.0-3.0 H -- INTERPRETIVE DATA NOTE: POSITIVE SCREENING RESULTS SHOULD BE CONSIDERED PRESUMPTIVE.WHEN COLLECTED FOR MEDICAL PURPOSES ONLY. SPECIMEN WILL NOTBE COLLECTED BY CHAIN OF CUSTODY.IF A CONFIRMATION OF POSITIVE RESULTS IS DESIRED, ACONFIRMATION TEST MUST BE REQUESTED BY THE PHYSICIAN AT ANADDITIONAL CHARGE TO THE PATIENT. URINALYSIS [id number] 23:39:00* Test Item Value Reference Range Interpretation [...] Urine Source? Clean CatchDRUGS OF ABUSE SCREEN [id number] 23:39:00* Test Item Value Reference Range Interpretation [...] Urine Source? Clean Catch- XR CHEST 1 [id number] 23:29:00 FAX: Lisha Nelson DO [place]: B St: REG Name: MANDY BARTHOLOMEW [facility] : [birth year] Age/S: 33/F [address] [facility] Unit #: [id number] Loc: [place] [address] Phys: Lisha Nelson DO Acct: [id number] Dis Date: Status: REG ER PHONE #: [phone] Exam Date: 07/30/2019 2302 FAX #: [phone] Reason: COUGH EXAMS: CPT CODE: [id number] XR CHEST 1 V 22509 EXAM: - XR CHEST 1 V HISTORY: [...] GAEL ORDAZ JR Trnscrd Pedro e/Time/By: 07/30/2019 (2587) : By: [email or web address] Orig Print D/T: S: 2019 (9024) PAGE 1 Signed Report BASIC METABOLIC [id number] 23:26:00* Test Item Value Reference Range Interpretation [...] CA) 8.5 mg/dL 8.5-10.1 N HEPATIC FUNCTION [id number] 23:26:00* Test Item Value Reference Range Interpretation [...] due to change in reagent. HCG SERUM [id number] 23:26:00* Test Item Value Reference Range Interpretation Comments HCG SERUM QUAL (test code = HCGQL) NEGATIVE NEGATIVE This HCGQL test is NOT applicable for MALE patients.Check with nurse about probable order error.If Tumor Marker Test needed, nurse should order test "HCGTU"(Test #550.56486) [id number] 23:26:00* Test Item Value Reference Range Interpretation Comments ACETAMINOPHEN (test code = ACET) < 10 mcg/mL 10-30 L A RANGE OF 10-30 mcg/mL IS A THERAPEUTIC RANGE. TOXIC CONCENTRATIONS: >150 mcg/mL AT 4 HOURS AFTER INGESTION >= 50 mcg/mL AT 12 HOURS AFTER INGESTION [id number] 23:26:00* Test Item Value Reference Range Interpretation Comments SALICYLATE (test code = CHRIS) 2.8 mg/dL 2.8-20.0 N [id number] 23:26:00* Test Item Value Reference Range Interpretation Comments ALCOHOL (test code = ALC) mg/dL 0-3 BASIC METABOLIC [id number] 23:24:00* Test Item Value Reference Range Interpretation [...] CA) 8.5 mg/dL 8.5-10.1 N HEPATIC FUNCTION [id number] 23:24:00* Test Item Value Reference Range Interpretation [...] due to change in reagent. HCG SERUM [id number] 23:24:00* Test Item Value Reference Range Interpretation Comments HCG SERUM QUAL (test code = HCGQL) NEGATIVE [id number] 23:24:00* Test Item Value Reference Range Interpretation Comments ACETAMINOPHEN (test code = ACET) < 10 mcg/mL 10-30 L A RANGE OF 10-30 mcg/mL IS A THERAPEUTIC RANGE. TOXIC CONCENTRATIONS: >150 mcg/mL AT 4 HOURS AFTER INGESTION >= 50 mcg/mL AT 12 HOURS AFTER INGESTION [id number] 23:24:00* Test Item Value Reference Range Interpretation Comments SALICYLATE (test code = CHRIS) 2.8 mg/dL 2.8-20.0 N [id number] 23:24:00* Test Item Value Reference Range Interpretation Comments ALCOHOL (test code = ALC) mg/dL 0-3 URINALYSIS [id number] 23:05:00* Test Item Value Reference Range Interpretation [...] Urine Source? Clean CatchDRUGS OF ABUSE SCREEN [id number] 23:05:00* Test Item Value Reference Range Interpretation [...] <300 ng/mL Urine Source? Clean CatchCBC W/O [id number] 23:00:00* Test Item Value Reference Range Interpretation [...] MPV) 8.6 fL 6.7-11.0 N CBC W/O [id number] 22:55:00* Test Item Value Reference Range Interpretation [...] code = MPV) fL 6.7-11.0 COMPREHENSIVE DRUG [id number] 12:20:00* Test Item Value Reference Range Interpretation Comments PHENYTOIN SCREEN (test code = PHENSQ) <1.0 ug/mL 10.0-20.0 A : Therapeutic 6.0 - 14.0 Detection Limit = 0.6 <0.6 Indicates None Detected ACETAMINOPHEN (test code = ACETSQ) NONE DETECTED AMITRIPTYLINE (test code = SWATHI) <20 ng/mL Not Estab. This test was developed and its performance characteristicsdetermined by [employer]. It has not been cleared orapproved by the Food and Drug Administration. DESIPRAMINE (test code = PEDRO) <20 ng/mL Not Estab. DIAZEPAM (test code = DIAZT) <0.1 ug/mL 0.1-0.9 A Therapeutic: Chlordiazepoxide < 1.0 Norchlordiazepoxide < 0.7 Demoxepam < 0.6 Nordiazepam < 1.5 Diazepam < 1.0 Toxic: (Total, Parent+Met) > 5.0 NORDIAZEPAM (test code = NORDIAZ) <0.1 ug/mL 0.1-1.4 A Performed by:[employer] ([facility]) [address], [place], [place] DOXEPIN (test code = DOXT) <20 ng/mL Not Estab. IMIPRAMINE (test code = IMIP) <20 ng/mL Not Estab. NORTRIPTYLINE (test code = NORT) <20 ng/mL 50-150 A NORDOXEPIN (test code = PRATIK) <20 ng/mL Not Estab. Performed At: [address] [id number] Sanjai MD Ph:[phone] by:[employer] ([facility]) [address], [place], [place] PENTOBARBITAL (NEMBUTAL) (test code = PENTO) <1 ug/mL 1-5 A Detection Limit = 1 SALICYLATE (test code = SALSQ) None Detected ug/mL 30-250 Detection Limit = 5This test was developed and its performance characteristicsdetermined by [employer]. It has not been cleared orapproved by [...] was developed and its performance characteristicsdetermined by [employer] It has not been cleared orapproved by the Food and Drug Administration. Detection Limit = 1 PHENOBARBITAL (test code = PHENOB) <1 ug/mL 15-40 A Detection Limit = 1 [id number] 11:38:00* Test Item Value Reference Range Interpretation Comments GLUBED (test code = GLUBED) 84 mg/dL 74-106 N Performed by certified chair post machine operator at [facility] [id number] 04:26:00* Test Item Value Reference Range Interpretation Comments PHOSPHORUS (test code = PHOS) 4.0 mg/dL 2.5-4.9 N [id number] 04:26:00* Test Item Value Reference Range Interpretation Comments MAGNESIUM (test code = MAG) 2.4 mg/dL 1.8-2.4 N BASIC METABOLIC [id number] 03:43:00* Test Item Value Reference Range Interpretation [...] CA) 8.9 mg/dL 8.5-10.1 N BASIC METABOLIC [id number] 03:37:00* Test Item Value Reference Range Interpretation [...] code = CA) mg/dL 8.5-10.1 CBC W/O [id number] 03:24:00* Test Item Value Reference Range Interpretation [...] MPV) 9.1 fL 6.7-11.0 N CBC W/O [id number] 03:22:00* Test Item Value Reference Range Interpretation [...] VOLUME (test code = MPV) fL 6.7-11.0 [id number] 17:35:00* Test Item Value Reference Range Interpretation Comments GLUBED (test code = GLUBED) 97 mg/dL 74-106 N Performed by certified chair post machine operator at [facility] [id number] 11:21:00* Test Item Value Reference Range Interpretation Comments GLUBED (test code = GLUBED) 107 mg/dL 74-106 H Performed by certified chair post machine operator at [facility] [id number] 09:34:00* Test Item Value Reference Range Interpretation Comments GLUBED (test code = GLUBED) 87 mg/dL 74-106 N Performed by certified chair post machine operator at [facility] COMPREHENSIVE METABOLIC [id number] 05:15:00* Test Item Value Reference Range Interpretation [...] due to change in reagent. COMPREHENSIVE METABOLIC [id number] 05:02:00* Test Item Value Reference Range Interpretation [...] code = ALKP) IUnit/L 45-117 COMPREHENSIVE DRUG [id number] 03:07:00* Test Item Value Reference Range Interpretation Comments PHENYTOIN SCREEN (test code = PHENSQ) <1.0 ug/mL 10.0-20.0 A : Therapeutic 6.0 - 14.0 Detection Limit = 0.6 <0.6 Indicates None Detected ACETAMINOPHEN (test code = ACETSQ) AMITRIPTYLINE (test code = SWATHI) <20 ng/mL Not Estab. This test was developed and its performance characteristicsdetermined by [employer]. It has not been cleared orapproved by the Food and Drug Administration. DESIPRAMINE (test code = PEDRO) <20 ng/mL Not Estab. DIAZEPAM (test code = DIAZT) <0.1 ug/mL 0.1-0.9 A Therapeutic: Chlordiazepoxide < 1.0 Norchlordiazepoxide < 0.7 Demoxepam < 0.6 Nordiazepam < 1.5 Diazepam < 1.0 Toxic: (Total, Parent+Met) > 5.0 NORDIAZEPAM (test code = NORDIAZ) <0.1 ug/mL 0.1-1.4 A Performed by:[employer] ([facility]) [address], [place], [place] DOXEPIN (test code = DOXT) <20 ng/mL Not Estab. IMIPRAMINE (test code = IMIP) <20 ng/mL Not Estab. NORTRIPTYLINE (test code = NORT) <20 ng/mL 50-150 A NORDOXEPIN (test code = PRATIK) <20 ng/mL Not Estab. Performed At: [facility] [id number] Levine MD Ph:[phone] by:[employer] ([facility]) [address], [place] PENTOBARBITAL (NEMBUTAL) (test code = PENTO) <1 ug/mL 1-5 A Detection Limit = 1 SALICYLATE (test code = SALSQ) None Detected ug/mL 30-250 Detection Limit = 5This test was developed and its performance characteristicsdetermined by [employer] It has not been cleared orapproved by [...] was developed and its performance characteristicsdetermined by [employer]. It has not been cleared orapproved by the Food and Drug Administration. Detection Limit = 1 PHENOBARBITAL (test code = PHENOB) <1 ug/mL 15-40 A Detection Limit = 1 [id number] 02:21:00* Test Item Value Reference Range Interpretation Comments PHOSPHORUS (test code = PHOS) 4.4 mg/dL 2.5-4.9 N [id number] 02:21:00* Test Item Value Reference Range Interpretation Comments MAGNESIUM (test code = MAG) 1.7 mg/dL 1.8-2.4 L CBC W/O [id number] 02:04:00* Test Item Value Reference Range Interpretation [...] MPV) 9.7 fL 6.7-11.0 N BASIC METABOLIC [id number] 02:00:00* Test Item Value Reference Range Interpretation [...] CA) 8.5 mg/dL 8.5-10.1 N CBC W/O [id number] 01:56:00* Test Item Value Reference Range Interpretation [...] VOLUME (test code = MPV) fL 6.7-11.0 [id number] 20:09:00* Test Item Value Reference Range Interpretation Comments GLUBED (test code = GLUBED) 126 mg/dL 74-106 H Performed by certified chair post machine operator at [facility] [id number] 16:29:00* Test Item Value Reference Range Interpretation Comments GLUBED (test code = GLUBED) 142 mg/dL 74-106 H Performed by certified chair post machine operator at [facility] [id number] 12:21:00* Test Item Value Reference Range Interpretation Comments GLUBED (test code = GLUBED) 125 mg/dL 74-106 H Performed by certified chair post machine operator at [facility] PROCALCITONIN (PCT)2019-07-23 05:08:00* Test Item Value Reference [...] into account the patients history. BASIC METABOLIC [id number] 03:07:00* Test Item Value Reference Range Interpretation [...] code = CA) 8.4 mg/dL 8.5-10.1 L [id number] 03:07:00* Test Item Value Reference Range Interpretation Comments PHOSPHORUS (test code = PHOS) 4.0 mg/dL 2.5-4.9 N [id number] 03:07:00* Test Item Value Reference Range Interpretation Comments MAGNESIUM (test code = MAG) 2.1 mg/dL 1.8-2.4 N CBC W/O [id number] 02:40:00* Test Item Value Reference Range Interpretation [...] fL 6.7-11.0 N - XR CHEST 1 [id number] 08:26:00 FAX: Jr Ford [phone] [place]: St: ADM FAX: Y Robert Ramires MD [phone] Name: MANDY ASCENCIO [facility] : 1985 Age/S: 33/F [address] [facility] Unit #: [id number] Loc: [address] [address] Phys: Jr Ford Acct: [id number] Dis Date: Status: ADM IN PHONE #: [phone] Exam Date: 07/22/2019 0345 FAX #: [phone] Reason: updated pulm view EXAMS: CPT CODE: [id number] XR CHEST 1 V 51481 REASON FOR EXAM: updated pulm view Exam Order Date: 07/22/2019 5:00 AM Ordering M.DJhonatan: FIDEL Raya PROCEDURE: - XR CHEST 1 [...] removal of enteric noe ction tube. Location: [facility] at 0826 Reported and signed by: José Miguel Cheng MD CC: Jr Ford; Robert Ramires MD Technologist: Armin Patricio RT(R); ANUM GUARDADO RT(R) T rnscrd Date/Time/By: 07/22/2019 (08) : By: [email or web address] Orig Print D/T: S: 07/22/2019 (5017) PAGE 1 Sign ed Report BASIC METABOLIC [id number] 02:41:00 * Test Item Value Reference Range [...] code = CA) 7.4 mg/dL 8.5-10.1 L [id number] 02:41:00* Test Item Value Reference Range Interpretation Comments PHOSPHORUS (test code = PHOS) 4.6 mg/dL 2.5-4.9 N [id number] 02:41:00* Test Item Value Reference Range Interpretation Comments MAGNESIUM (test code = MAG) 1.8 mg/dL 1.8-2.4 N CBC W/O [id number] 02:35:00* Test Item Value Reference Range Interpretation [...] MPV) 10.8 fL 6.7-11.0 N BASIC METABOLIC [id number] 02:34:00* Test Item Value Reference Range Interpretation [...] code = CA) 7.4 mg/dL 8.5-10.1 L [id number] 02:34:00* Test Item Value Reference Range Interpretation Comments PHOSPHORUS (test code = PHOS) mg/dL 2.5-4.9 [id number] 02:34:00* Test Item Value Reference Range Interpretation Comments MAGNESIUM (test code = MAG) mg/dL 1.8-2.4 [id number] 11:24:00* Test Item Value Reference Range Interpretation Comments GLUBED (test code = GLUBED) 92 mg/dL 74-106 N Performed by certified chair post machine operator at [facility] [id number] 08:02:00* Test Item Value Reference Range Interpretation Comments GLUBED (test code = GLUBED) 88 mg/dL 74-106 N Performed by certified chair post machine operator at [facility] - XR CHEST 1 [id number] 07:43:00 FAX: Jr Ford [phone] [place]: B St: ADM FAX: Y Robert Ramires MD [phone] Name: MANDY ASCENCIO [facility] : 1985 Age/S: 33/F [address] Unit #: [id number] Loc: V.[address] [address] Phys: Jr Ford Acct: [id number] Dis Date: Status: ADM IN PHONE #: [phone] Exam Date: 07/21/2019 0427 FAX #: [phone] Reason: updated pulm view EXAMS: CPT CODE: [id number] XR CHEST 1 V 54046 EXAM: Chest x-ray, one view; INFORMATION: Rib fracture; respiratory failure; IMPRESSION: No change; well-positioned endotracheal and nasogastric tubes; No evidence of acute cardiothoracic abnormalities. Location code: [facility] at 0743 Reported and signed by: Quentin Ervin M.D. CC: Jr oFrd; Robert Ramires MD Technologist: Armin Patricio RT(R); ANUM GUARDADO RT(R) Trnncrd Date/Time/By: 07/21/2019 (0743) : By: Briana Orig Print D/T: S: 07/21/2019 (0793) PAGE 1 Signed Report [id number] 02:50:00* Test Item Value Reference Range Interpretation Comments PHOSPHORUS (test code = PHOS) 3.0 mg/dL 2.5-4.9 N [id number] 02:50:00* Test Item Value Reference Range Interpretation Comments MAGNESIUM (test code = MAG) 2.4 mg/dL 1.8-2.4 N BASIC METABOLIC [id number] 02:12:00* Test Item Value Reference Range Interpretation [...] CA) 7.8 mg/dL 8.5-10.1 L BASIC METABOLIC [id number] 02:08:00* Test Item Value Reference Range Interpretation [...] code = CA) mg/dL 8.5-10.1 CBC W/O [id number] 02:05:00* Test Item Value Reference Range Interpretation [...] MPV) 9.6 fL 6.7-11.0 N CBC W/O [id number] 01:54:00* Test Item Value Reference Range Interpretation [...] fL 6.7-11.0 - XR ELBOW 2 VIEWS [id number] 16:39:00 FAX: Gregor Coello [place]: B St: ADM FAX: Robert Stock MD [phone] Name: MANDY ASCENCIO [facility] : 1985 Age/S: 33/F [address] Unit #: [id number] Loc: [address] [place] [address] Phys: Gregor Tijerina Acct: [id number] Dis Date: Status: ADM IN PHONE #: [phone] Exam Date: 07/20/2019 1550 FAX #: [phone] Reason: possible fracture EXAMS: CPT CODE: [id number] XR ELBOW [address] [place] [address] REASON FOR EXAM: possible fracture EXAM ORDER DATE: 07/20/2019 12:00 AM Ordering: FIDEL Hurtado Attending:Robert Ramires MD Location:[facility] PROCEDURE: - XR ELBOW 2 VIEWS BI FINDINGS: 5 views of the bilateral elbows were obtained. The osseous structures are unremarkable in size and shape. The joint spaces are maintained. No evidence of fracture. There is normal alignment of the bilateral elbow joints IMPRESSION: Unremarkable bilateral elbows at 6186 Reported and signed by: Toro Reed M.D. CC: Gregor Tijerina; Robert Ramires MD Technologist: NITIN GABRIEL, RT(R); NED MCDANIELS RT(R) Trnscrd Date/Time/By: 07/20/2019 (5175) : By: Ana Cristina Orig Print D/T: S: 07/23/2019 (4051) PAGE 1 Signed Report - XR CHEST 1 [id number] 16:37:00 FAX: Robert Stock MD [phone] [place]: B St: ADM Name: MANDY BARTHOLOMEW [facility] : [birth year] Age/S: 33/F [address] [facility] Unit #: [id number] Loc: V.[address] [place] [address] Phys: Robert Ramires MD Acct: [id number] Dis Date: Status: ADM IN PHONE #: [phone] Exam Date: 07/20/2019 1545 FAX #: [phone] Reason: left rib fractures EXAMS: CPT CODE: [id number] XR CHEST 1 V 45699 REASON FOR EXAM: left rib fractures EXAM ORDER DATE: 07/20/2019 12:00 AM Orderi ng: Robert Ramires MD Attending:Robert Ramires MD Location:[facility] PROCEDURE: - XR CHEST 1 V COMPARISON: 07/19/2019 FINDINGS: Portable AP frontal view of the chest obtained at 3:54 PM shows clear lungs without evidence of consolidation. There is no evidence of effusion. The heart size is within normal limits. Pulmonary vasculatures a re unremarkable. Stable appearance of the ET tube and OG tube. IMPRESSION: No active disease. at 1637 Reported and signed by: Shayla Reed M.D. CC: Robert Ramires MD Technologist: NITIN GABRIEL RT(R); NED MCDANIELS RT(R) [facility] Date/Time/By: 07/20/2019 (4517) : By: Ana Cristina Orig Print D/T : S: 07/23/2019 (1663) PAGE 1 Sig myrna Report - XR KNEE 1 OR 2 V [id number] 16:36:00 FAX: Gregor Coello [place]: B St: ADM FAX: Robert Stock MD [phone] Name: MANDY ASCENCIO [facility] : 1985 Age/S: 33/F [address] [facility] Unit #: [id number] Loc: [address] [place] [address] Phys: Gregor Tijerina Acct: [id number] Dis Date: Status: ADM IN PHONE #: [phone] Exam Date: 07/20/2019 1551 FAX #: [phone] Reason: possible fracture EXAMS: CPT CODE: [id number] XR KNEE 1 [place] [address] [place] [address] REASON FOR EXAM: possible fracture EXAM ORDER DATE: 07/20/2019 12:00 AM Ordering: FIDEL Hurtado Attending:Robert Ramires MD Location:[facility] PROCEDURE: - XR KNEE 1 OR 2 [...] Technologist: NITIN GABRIEL, RT(R); NED MCDANIELS RT(R) Trnncrd Date/Time/By: 07/20/2019 (4265) : By: KathieL Orig Print D/T: S: 07/23/2019 (6652) PAGE 1 Signed Report Coronavirus 2019 nCoV [id number] 12:46:00* Test Item Value Reference Range Interpretation Comments Coronavirus 2019 nCoV Bedside (test code = COVNONPUIBED) Negative LAB.JQ 07/20/19 [id number] 10:34:00* Test Item Value Reference Range Interpretation Comments ALCOHOL (test code = ALC) 28 mg/dL 0.0-3.0 H -- INTERPRETIVE DATA NOTE: POSITIVE SCREENING RESULTS SHOULD BE CONSIDERED PRESUMPTIVE.WHEN COLLECTED FOR MEDICAL PURPOSES ONLY. SPECIMEN WILL NOTBE COLLECTED BY CHAIN OF CUSTODY.IF A CONFIRMATION OF POSITIVE RESULTS IS DESIRED, ACONFIRMATION TEST MUST BE REQUESTED BY THE PHYSICIAN AT ANADDITIONAL CHARGE TO THE PATIENT. LACTIC [id number] 08:00:00* Test Item Value Reference Range Interpretation Comments LACTIC ACID (test code = LACT) 1.7 mmol/L 0.4-1.9 N BASIC METABOLIC [id number] 07:50:00* Test Item Value Reference Range Interpretation [...] code = CA) 7.8 mg/dL 8.5-10.1 L [id number] 07:50:00* Test Item Value Reference Range Interpretation Comments PHOSPHORUS (test code = PHOS) 2.5 mg/dL 2.5-4.9 N [id number] 07:50:00* Test Item Value Reference Range Interpretation Comments MAGNESIUM (test code = MAG) 1.7 mg/dL 1.8-2.4 L CALCIUM [id number] 07:50:00* Test Item Value Reference Range Interpretation Comments CALCIUM IONIZED (test code = JOAO) 1.13 mmol/L 1.12-1.32 N BASIC METABOLIC [id number] 07:46:00* Test Item Value Reference Range Interpretation [...] CALCIUM (test code = CA) mg/dL 8.5-10.1 [id number] 07:46:00* Test Item Value Reference Range Interpretation Comments PHOSPHORUS (test code = PHOS) mg/dL 2.5-4.9 [id number] 07:46:00* Test Item Value Reference Range Interpretation Comments MAGNESIUM (test code = MAG) mg/dL 1.8-2.4 CALCIUM [id number] 07:46:00* Test Item Value Reference Range Interpretation Comments CALCIUM IONIZED (test code = JOAO) 1.13 mmol/L 1.12-1.32 N BASIC METABOLIC [id number] 07:45:00* Test Item Value Reference Range Interpretation [...] CALCIUM (test code = CA) mg/dL 8.5-10.1 [id number] 07:45:00* Test Item Value Reference Range Interpretation Comments PHOSPHORUS (test code = PHOS) mg/dL 2.5-4.9 [id number] 07:45:00* Test Item Value Reference Range Interpretation Comments MAGNESIUM (test code = MAG) mg/dL 1.8-2.4 CALCIUM [id number] 07:45:00* Test Item Value Reference Range Interpretation Comments CALCIUM IONIZED (test code = JOAO) mmol/L 1.12-1.32 CBC W/O [id number] 07:33:00* Test Item Value Reference Range Interpretation [...] = MPV) 9.1 fL 6.7-11.0 N URINALYSIS [id number] 00:49:00* Test Item Value Reference Range Interpretation [...] Urine Source? Clean CatchDRUGS OF ABUSE SCREEN [id number] 00:49:00* Test Item Value Reference Range Interpretation [...] NEGATIVE <300 ng/mL Urine Source? Clean CatchURINALYSIS [id number] 00:23:00* Test Item Value Reference Range Interpretation [...] Urine Source? Clean CatchDRUGS OF ABUSE SCREEN [id number] 00:23:00* Test Item Value Reference Range Interpretation [...] <300 ng/mL Urine Source? Clean CatchBASIC METABOLIC [id number] 00:19:00* Test Item Value Reference Range Interpretation [...] CA) 8.7 mg/dL 8.5-10.1 N HEPATIC FUNCTION [id number] 00:19:00* Test Item Value Reference Range Interpretation [...] due to change in reagent. HCG SERUM [id number] 00:19:00* Test Item Value Reference Range Interpretation [...] 200,000 MIU/ML2-3 MONTHS AFTER CONCEPTION 10,000-100,000 MIU/ML [id number] 00:19:00* Test Item Value Reference Range Interpretation Comments TROPONIN-I (test code = TROPI) <0.015 ng/mL 0-0.045 N [id number] 00:19:00* Test Item Value Reference Range Interpretation Comments ACETAMINOPHEN (test code = ACET) < 10 mcg/mL 10-30 L A RANGE OF 10-30 mcg/mL IS A THERAPEUTIC RANGE. TOXIC CONCENTRATIONS: >150 mcg/mL AT 4 HOURS AFTER INGESTION >= 50 mcg/mL AT 12 HOURS AFTER INGESTION [id number] 00:19:00* Test Item Value Reference Range Interpretation Comments SALICYLATE (test code = CHRIS) 3.5 mg/dL 2.8-20.0 N [id number] 00:19:00* Test Item Value Reference Range Interpretation [...] ANADDITIONAL CHARGE TO THE PATIENT. ARTERIAL BLOOD [id number] 00:07:00* Test Item Value Reference Range Interpretation [...] [place] 00:06 - 07/20/2019; by Franco PARNELL CRT ABG O2 SATURATION (test code = SATA) [...] 50.6 mm Hg - XR CHEST 1 [id number] 23:53:00 FAX: Geoffrey Bae MD [phone] [place]: St: REG Name: MANDY BARTHOLOMEW [facility] : [birth year] Age/S: 33/F [address] Unit #: [id number] Loc: [place] [address] Phys: Geoffrey Bae MD Acct: [id number] Dis Date: Status: REG ER PHONE #: [phone] Exam Date: 07/19/2019 2342 FAX #: [phone] Reason: CHEST PAIN EXAMS: CPT CODE: [id number] XR CHEST 1 V 54799 R16 EXAM: - XR CHEST 1 V [...] CC: Geoffrey Bae MD Technologist: Bhavana Sneed Trnscrd Date/Time/By: 07/19/2019 (2434) : By: [email or web address] Orig Print D/T: S: 07/19/2019 (8522) PAGE 1 Signed Report - CT ABD PELVIS W/GIRH0381-11-12 23:51:00 Name: MANDY ASCENCIO [facility] : 1985 Age/S: 33 / F [address] Unit #: [id number] Loc: [place] [address] Phys: Geoffrey Bae MD Acct: [id number] Dis Date: Status: REG ER PHONE #: [phone] Exam Date: 07/19/20195 FAX #: [phone] Reason: abd pain - fall > 20 feet unresponsive EXAMS: CPT CODE: [id number] CT ABD PELVIS W/CONT [address] CHEST WITHOUT CONTRAST HISTORY: chest [...] 1 Signed Report (CONTINUED) Name: MANDY ASCENCIO [facility] : 1985 Age/S: 33 / F [address] [facility] Unit #: [id number] Loc: [place] [address] Phys: Geoffrey Bae MD Acct: [id number] Dis Date: Status: REG ER PHONE #: [phone] Exam Date: 07/19/20194 FAX #: [phone] Reason: abd pain - fall > 20 feet unresponsive EXAMS: CPT CODE: [id number] CT ABD PELVIS W/CONT 59426 < Continued> Nondisplaced fractures in the left eighth through 10th ribs. Otherwise, no acute chest, abdomen or pelvis abnormalities. at 2351 Reported and signed by: Sarmad Pelletier MD CC: Geoffrey Bae MD Technologist:CY SOLORZANO CT CTDI: DLP: Trnscb Date/Time: 07/19/2019 (628) [email or web address] Orig Print D/T: S: 07/19/2019 (1366) PAGE 2 Signed Report - CT CHEST W/TPQIURJV5196-43-65 23:51:00 Name: MANDY ASCENCIO [facility] : 1985 Age/S: 33 / F [address] [facility] Unit #: [id number] Loc: [place] [address] Phys: Geoffrey Bae MD Acct: [id number] Dis Date: Status: REG ER PHONE #: [phone] Exam Date: 07/19/2019 231 FAX #: [phone] Reason: chest pain - fall > 20 feet unresponsive EXAMS: CPT CODE: [id number] CT CHEST W/CONTRAST [address] CHEST WITHOUT CONTRAST HISTORY: chest [...] 1 Signed Report (CONTINUED) Name: MANDY ASCENCIO [facility] : 1985 Age/S: 33 / F [address] [facility] Unit #: [id number] Loc: [place] [address] Phys: Geoffrey Bae MD Acct: [id number] Dis Date: Status: REG ER PHONE #: [phone] Exam Date: 07/19/2019 2315 FAX #: [phone] Reason: chest pain - fall > 20 feet unresponsive EXAMS: CPT CODE: [id number] CT CHEST W/CONTRAST 11862 < Continued> Nondisplaced fractures in the left eighth through 10th ribs. Otherwise, no acute chest, abdomen or pelvis abnormalities. at 2351 Reported and signed by: Sarmad Pelletier MD CC: Geoffrey Bae MD Technologist:CY CLEMONS CTDI: DLP: Trnscb Date/Time: 07/19/2019 (2350) [email or web address] Orig Print D/T: S: 07/19/2019 (2896) PAGE 2 Signed Report BASIC METABOLIC [id number] 23:31:00* Test Item Value Reference Range Interpretation [...] CA) 8.7 mg/dL 8.5-10.1 N HEPATIC FUNCTION [id number] 23:31:00* Test Item Value Reference Range Interpretation [...] due to change in reagent. HCG SERUM [id number] 23:31:00* Test Item Value Reference Range Interpretation [...] 200,000 MIU/ML2-3 MONTHS AFTER CONCEPTION 10,000-100,000 MIU/ML [id number]-[id number] 23:31:00* Test Item Value Reference Range Interpretation Comments TROPONIN-I (test code = TROPI) <0.015 ng/mL 0-0.045 N DZGEZXILOAGCX6822-29-01 23:31:00* Test Item Value Reference Range Interpretation Comments ACETAMINOPHEN (test code = ACET) < 10 mcg/mL 10-30 L A RANGE OF 10-30 mcg/mL IS A THERAPEUTIC RANGE. TOXIC CONCENTRATIONS: >150 mcg/mL AT 4 HOURS AFTER INGESTION >= 50 mcg/mL AT 12 HOURS AFTER INGESTION [id number] 23:31:00* Test Item Value Reference Range Interpretation Comments SALICYLATE (test code = CHRIS) 3.5 mg/dL 2.8-20.0 N IKAGWYR7265-23-91 23:31:00* Test Item Value Reference Range Interpretation Comments ALCOHOL (test code = ALC) mg/dL 0-3 - CT L-SPINE W/O [id number] 23:26:00 Name: MANDY ASCENCIO [facility] : 1985 Age/S: 33 / F [address] [facility] Unit #: [id number] Loc: [place] [address] Phys: Geoffrey Bae MD Acct: [id number] Dis Date: Status: REG ER PHONE #: [phone] Exam Date: 07/19/2019 2315 FAX #: [phone] Reason: back pain fall paralysis EXAMS: CPT CODE: [id number] CT L-SPINE W/O CONTRAST 70595 Exam: CT L-spine. Location: H 12 History: [...] Frost M.D. CC: Geoffrey Bae MD Technologist:CY SOLORZANO CT CTDI: DLP: Trnscb Date/Time: 07/19/2019 (2326) Maricruz Orig Print D/T: S: 07/19/2019 (3394) PAGE 1 Signed Report - CT T-SPINE W/O CONTRAST 2019-07-19 23:26:00 Name: MANDY ASCENCIO [facility] : 1985 Age/S: 33 / F [address] Unit #: [id number] Loc: [place] [address] Phys: Geoffrey Bae MD Acct: [id number] Dis Date: Status: REG ER PHONE #: [phone] Exam Date: 07/19/2019 231 FAX #: [phone] Reason: back pain fall paralysis EXAMS: CPT CODE: [id number] CT T-SPINE W/O CONTRAST 06123 Exam: CT T-spine. Location: H 12 History: [...] Frost M.D. CC: Geoffrey Bae MD Technologist:CY SOLORZANO CT CTDI: DLP: Trnscb Date/Time: 07/19/2019 (2325) Maricruz Orig Print D/T: S: 07/19/2019 (7384) PAGE 1 Signed Report - CT C-SPINE W/O [id number] 23:23:00 Name: MANDY ASCENCIO [facility] : 1985 Age/S: 33 / F [address] Unit #: [id number] Loc: [place] [address] Phys: Geoffrey Bae MD Acct: [id number] Dis Date: Status: REG ER PHONE #: [phone] Exam Date: 07/19/2019 231 FAX #: [phone] Reason: Neck Pain EXAMS: CPT CODE: [id number] CT C-SPINE W/O CONTRAST 22610 Exam: CT C-spine. Location: H 12 History: [...] Technologist:CY CLEMONS CTDI: DLP: Trnscb Date/Time: 07/19/2019 (436) t.SDR.FC Orig Print D/T: S: 07/19/2019 (9953) PAGE 1 Signed Report PROTHROMBIN [id number] 23:22:00* Test Item Value Reference Range Interpretation [...] (2.5-3.5) IS PATIENT ON ANTICOAGULANTS? NTHROMBOPLASTIN TIME [id number] 23:22:00* Test Item Value Reference Range Interpretation Comments THROMBOPLASTIN TIME PARTIAL (test code = PTT) 28.7 seconds 23.0-37. 0 N IS PATIENT ON ANTICOAGULANTS? N- CT HEAD/BRAIN W/O [id number] 23:22:00 Name: MANDY ASCENCIO [facility] : 1985 Age/S: 33 / F [address] [facility] Unit #: [id number] Loc: [place] [address] Phys: Blaze Bae MD Acct: [id number] Di s Date: Status: REG ER PHONE #: Exam Date: 07/19/2019 8344 FAX #: Reason: HEADACHE EXAMS: CPT CODE: [id number] CT HEAD/BRAIN W/O CONT 10968 Exam: CT head without con trast. Location: [...] t:CY SOLORZANO CT CTDI: DLP: Trnscb Date/Time: (8412) DiannaFC Orig Print D/T: S: 07/19/2019 (2 325) PAGE 1 Signed Report BASIC METABOLIC [id number] 23:14:00* Test Item Value Reference Range Interpretation [...] code = CA) mg/dL 8.5-10.1 HEPATIC FUNCTION [id number] 23:14:00* Test Item Value Reference Range Interpretation [...] code = ALKP) IUnit/L 45-117 HCG SERUM [id number] 23:14:00* Test Item Value Reference Range Interpretation Comments HCG SERUM BETA (test code = HCG) mIU/mL 0-3 GKDJTHWZ-[id number] 23:14:00* Test Item Value Reference Range Interpretation Comments TROPONIN-I (test code = TROPI) ng/mL 0-0.045 IQUQLLQSNJKVH0885-30-85 23:14:00* Test Item Value Reference Range Interpretation Comments ACETAMINOPHEN (test code = ACET) mcg/mL 10-30 TLCLTGDGFZ3814-65-37 23:14:00* Test Item Value Reference Range Interpretation Comments SALICYLATE (test code = CHRIS) mg/dL 2.8-20.0 [id number] 23:14:00* Test Item Value Reference Range Interpretation Comments ALCOHOL (test code = ALC) mg/dL 0-3 CBC W/O [id number] 22:57:00* Test Item Value Reference Range Interpretation [...] MPV) 9.3 fL 6.7-11.0 N CBC W/O [id number] 22:54:00* Test Item Value Reference Range Interpretation [...] VOLUME (test code = MPV) fL 6.7-11.0 [id number] 20:06:00* Test Item Value Reference Range Interpretation Comments GLUBED (test code = GLUBED) 149 mg/dL 74-106 H Performed by certified chair post machine operator at [facility] BASIC METABOLIC ZFTQM1121-98-30 08:50:00* Test Item Value Reference Range Interpretation [...] result is a direct measurement.========= BASIC METABOLIC [id number] 08:46:00* Test Item Value Reference Range Interpretation [...] code = LDL) mg/dL 100-129 CBC W/AUTO [id number] 08:19:00* Test Item Value Reference Range Interpretation [...] NRBC#) 0.00 K/mm3 0.0-0.1 N CBC W/AUTO [id number] 08:18:00* Test Item Value Reference Range Interpretation [...] # (test code = BA#) K/mm3 0.0-0.2 [id number] 21:30:00* Test Item Value Reference Range Interpretation Comments GLUBED (test code = GLUBED) 81 mg/dL 74-106 N Performed by certified chair post machine operator at [facility] DRUGS OF ABUSE SCREEN [id number] 21:05:00* Test Item Value Reference Range Interpretation [...] NEGATIVE <300 ng/mL DRUGS OF ABUSE SCREEN [id number] 20:49:00* Test Item Value Reference Range Interpretation [...] (test code = METHAURN) NEGATIVE <300 ng/mL [id number] 20:44:00* Test Item Value Reference Range Interpretation Comments GLYCOSYLATED HEMOGLOBIN (HA1C) (test code = GLYHGB) 5.1 % HbA1 SUGGESTED DIAGNOSIS: HbA1C (%) Diabetic >6.4Prediabetes 5.7 - 6.4Normal <5.7 ESTIMATED AVERAGE GLUCOSE (test code = EAG) 100 MG/DL [id number] 20:36:00* Test Item Value Reference Range Interpretation [...] TO THE PATIENT. - CTA CHEST FOR [id number] 17:54:00 Name: MANDY ASCENCIO [facility] : 1985 Age/S: 33 / F [address] [facility] Unit #: [id number] Loc: [place] [address] Phys: Edgar Lerma DO Acct: [id number] Dis Date: Status: REG ER PHONE #: [phone] Exam Date: 07/17/2019 9052 FAX #: [phone] Reason: hypoxic, tachycardic, clear CXR, evaluate for P EXAMS: CPT CODE: [id number] [place] [address] REASON FOR EXAM: hypoxic, tachycardic, clear CXR, evaluate for PE EXAM ORDER DATE: 07/17/2019 4:17 PM Ordering: Edgar Lerma DO Attending:Edgar Lerma DO Location:[facility] COMPARISON: PROCEDURE: - CTA CHEST FOR PE [...] Toro Reed M.D. CC: Edgar Lerma chnologist:Vashti Osorio RT(R); WILFRIDO [place] CTDI: DLP: Trnscb Date/ Time: 07/17/2019 (1754) t.BABITAR.VTL Orig Print D/T: S: 07/05 (1800) PAGE 1 Signed Report URINALYSIS [id number] 16:15:00* Test Item Value Reference Range Interpretation Comments UA COLOR (test code = COLU) [place] YELLOW UA APPEARANCE (test code = APPU) [...] into account the patients history. B-TYPE NATRIURETIC [id number] 15:48:00* Test Item Value Reference Range Interpretation Comments B-TYPE NATRIURETIC PEPTIDE (test code = BNP) 20.39 pgram/mL 0-100 N - CT HEAD/BRAIN W/O [id number] 15:44:00 Name: MANDY ASCENCIO [facility] : 1985 Age/S: 33 / F [address] [facility] Unit #: [id number] Loc: [place] [address] Phys: Edgar Lerma DO Acct: [id number] Dis Date: Status: REG ER PHONE #: [phone] Exam Date: 07/17/2019 1542 FAX #: [phone] Reason: Altered Mental Status EXAMS: CPT CODE: [id number] CT HEAD/BRAIN W/O CONT 58111 REASON FOR EXAM: Altered Mental Status EXAM ORDER DATE: 07/17/2019 2:03 PM Ordering: Edgar Lerma DO Attending:Edgar Lerma DO Location:[facility] PROCEDURE: - CT HEAD/BRAIN W/O CONT COMPARISON: [...] Reed M.D. CC: Edgar Lerma DO Technologist:Vashti FULLER(R)David Urr[place]ia CTDI: DLP: Trnscb Date/Time: 07/17/2019 ( 2994) t.CINTHYA.VTL Orig Print D/T: S: 07/17/2019 (4859) PAGE 1 Signed Report LACTIC [id number] 15:37:00* Test Item Value Reference Range Interpretation Comments LACTIC ACID (test code = LACT) 1.9 mmol/L 0.4-1.9 N HEPATIC FUNCTION [id number] 15:37:00* Test Item Value Reference Range Interpretation [...] code = LDH) 201 IUnit/L 84-246 N [id number] 15:37:00* Test Item Value Reference Range Interpretation Comments LIPASE (test code = LIP) 81 U/L 73.0-393.0 N [id number]-[id number] 15:37:00* Test Item Value Reference Range Interpretation Comments TROPONIN-I (test code = TROPI) <0.015 ng/mL 0-0.045 N [id number] 15:37:00* Test Item Value Reference Range Interpretation Comments FERRITIN (test code = KYLE) 12 ng/mL 8-388 N C REACTIVE [id number] 15:37:00* Test Item Value Reference Range Interpretation Comments C REACTIVE PROTEIN (test code = CRP) 0.34 mg/dL 0-0.3 H BASIC METABOLIC [id number] 15:27:00* Test Item Value Reference Range Interpretation [...] CA) 8.2 mg/dL 8.5-10.1 L HCG SERUM [id number] 15:27:00* Test Item Value Reference Range Interpretation Comments HCG SERUM QUAL (test code = HCGQL) NEGATIVE NEGATIVE This HCGQL test is NOT applicable for MALE patients.Check with nurse about probable order error.If Tumor Marker Test needed, nurse should order test "HCGTU"(Test #550.19322) BASIC METABOLIC [id number] 15:26:00* Test Item Value Reference Range Interpretation [...] CA) 8.2 mg/dL 8.5-10.1 L HCG SERUM [id number] 15:26:00* Test Item Value Reference Range Interpretation Comments HCG SERUM QUAL (test code = HCGQL) NEGATIVE Coronavirus 2018 nCoV Rcytqxd6894-71-35 15:21:00* Test Item Value Reference Range Interpretation Comments Coronavirus 2019 nCoV Bedside (test code = [id number]) Negative Is patient requiring admission or transfer? [...] (test code = MDIFF) NO CBC W/AUTO [id number] 15:05:00* Test Item Value Reference Range Interpretation [...] BA#) K/mm3 0.0-0.2 - XR CHEST 1 [id number] 14:56:00 FAX: Edgar Lerma DO [place]: St: REG Name: MANDY BARTHOLOMEW [facility] : [birth year] Age/S: 33/F [address] [facility] Unit #: [id number] Loc: [place] [address] Phys: Edgar Lerma DO Acct: [id number] Dis Date: Status: REG ER PHONE #: [phone] Exam Date: 07/17/2019 1429 FAX #: [phone] Reason: COUGH EXAMS: CPT CODE: [id number] XR CHEST 1 V 06195 REASON FOR EXAM: COUGH Exam Order Date: 07/17/2019 2:03 PM Ordering M.DJhonatan: Edgar Lerma DO PROCEDURE: - XR CHEST [...] IMPRESSION: No acute cardiopulmo nary process. Location: [facility] at 1456 Reported and sig myrna by: José Miguel Cheng MD CC: Edgar Lerma DO Technologist: NITIN GABRIEL, RT(R) Trnscrd Date/Time/By: 07/17/2019 (9417) : By: DiannaRR31 Orig Print D/T: S: 07/17/2019 (6344) PAGE 1 Signed Report CHEM [id number] 08:31:002.2 [facility] NynyszoORKJQEDYRCPQ1750-58-31 08:31:0010.2[facility] HermannELECTROLYTES 2018-12-11 08:31:00* Test Item Value Reference Range Interpretation Comments B/C Ratio (test code = B/C Ratio) 9 1 6-25 [facility] SmmutmpAJUHVIFLVTCT1867-60-00 08:31:003.4[facility] HermannELECTROLYTES 2018-12-11 08:31:00* Test Item Value Reference Range Interpretation Comments A/G Ratio (test code = A/G Ratio) 0.8 1 0.7-1.6 [facility] JpxekvdOVQXCZARNILO4736-20-43 08:31:0083[facility] HermannELECTROLYTES 2018-12-11 08:31:004[facility] EfkhrppNHFGVYVLPNQD5322-70-99 08:31:000.46[facility] GcezairIFCKHOUGVQFI4866-59-46 08:31:50616Rhqlcvoi HahemcvUJEUURUHROCU9891-63-82 08:31:004.2[facility] WjynlyaNKBFEOHQLJGJ1052-84-78 08:31:58761Sacuzjmv Andry YDNNALDOBZAM2421-39-68 08:31:0026[facility] VbnxyffHWLDOLXWHZIX1668-53-05 08:31:00 8.1[facility] XrgcfptTJAIHBCJBIGQ1404-37-64 08:31:006.2[facility] [place] AXGCMLGEYEEW1122-09-17 08:31:002.8[facility] FcqkyspVDUVQMASFEOL7653-27-18 08:31:0022[facility] TanvcssVCPUQDXJAWXF7739-86-82 08:31:0033[facility] OAIWRONNXQVB9282-30-16 08:31:76550Ybjqwxvq RkckueeNUKKYBIUBAAR2652-10-08 08:31:000.5[facility] CyppslfOMDRYDCZACRM8707-76-76 08:31:71671Afpijboq [place] TJARNBSFEI6112-79-10 08:31:004.0[facility] GoolwwhQCPRWHPSET0493-37-91 08:31:00 3.83[facility] FwzopibFYZURPIPRQ3706-73-37 08:31:0012.3[facility] HermannHEMATOLOGY 2018-12-11 08:31:0036.4[facility] PphqvxhUQPXNRQEIR2013-75-77 08:31:0095.1[facility] PaxbvbzCAWOWXIPAM8483-65-61 08:31:00* Test Item Value Reference Range Interpretation Comments MCH (test code = MCH) 32.2 pg 27.0-31.0 [facility] KrzbzqnDPQNQWUYHV3448-16-03 08:31:0033.8[facility] HermannHEMATOLOGY 2018-12-11 08:31:0015.3[facility] KbaftwvWLXPAAZNVE5868-36-31 08:31:82822[place] VlyxzlkAIKERQJXLO9638-49-49 08:31:007.3[facility] AarjdzkTXFCHDHLZH9785-32-91 08:31:0046.5[facility] ZogfjuqKBEUKHYARX4092-27-24 08:31:0038.7[facility] Andry TOXTXYTRNW3818-65-56 08:31:007.3[facility] FgrgvhbTHVOZCTEGB1826-71-39 08:31:006.7 [facility] RtqaufaHJGJQWYUKR8917-50-58 08:31:000.8[facility] HermannHEMATOLOGY 2018-12-11 08:31:001.8[facility] AwslbrwHOZQNYPSOH8592-24-82 08:31:001.5[facility] KcqfgurSMUNFKSQGL6121-13-26 08:31:000.3[facility] DaefpfnBCUOKZWPPC1539-99-60 08:31:000.3[facility] HermannCHEM HHZKJ1982-39-06 09:31:0081[facility] HermannCHEM IIFPM4659-00-29 09:31:006[facility] HermannCHEM RZDZR8471-03-42 09:31:000.58 [facility] HermannCHEM FDMWW1357-40-74 09:31:58308Rspkmehl HermannCHEM PANEL 2018-12-10 09:31:003.7[facility] HermannCHEM BVUDL1261-15-56 09:31:08178Eqkmyqiy HermannCHEM NNPZG0981-80-84 09:31:0027[facility] HermannCHEM XHNII3305-18-84 09:31:008.1[facility] HermannCHEM CJEHK7400-30-45 09:31:0011.7[facility] HermannCHEM RJDUA7751-28-12 09:31:51280Yghsvmfr HermannCHEM ITQFL1641-10-75 09:31:001.2 [facility] HermannCARDIAC NUZHRLM0487-50-62 06:12:54871Zlixxjtv HermannCHEM PANEL 2018-12-09 06:12:001.8[facility] HermannDRUG FTJMWR2601-71-33 06:12:00Negative *NA*(12/09/18 1:12 AM)[facility] HermannDRUG SIPEOK1712-89-71 06:12:00Negative *NA*(12/09/18 1:12 AM)[facility] HermannDRUG OSKXEQ8875-34-33 06:12:00Negative *NA*(12/09/18 1:12 AM)[facility] HermannDRUG HKUXLK7502-03-95 06:12:00Negative *NA*(12/09/18 1:12 AM)[facility] HermannDRUG VKXUTF5299-52-86 06:12:00Negative *NA*(12/09/18 1:12 AM)[facility] HermannDRUG HRJNWW7719-66-71 06:12:00Negative *NA*(12/09/18 1:12 AM)[facility] HermannDRUG JWZVWF5929-63-65 06:12:00Negative *NA*(12/09/18 1:12 AM)[facility] HermannDRUG XYYJOV6849-50-65 06:12:00See Note (12/09/18 1:12 AM)[facility] TqcegrmQVPXUESFDKVI7895-50-51 06:12:0011.1[facility] DwyrdusQQVETYRDNLRS3884-45-54 06:12:0095[facility] SqmriscGTFBWMTRYLXT4507-77-95 06:12:003[facility] DbkddwhMCULPWCHKANG0825-24-82 06:12:000.66[facility] Andry PEVSQCRNWFTP7445-40-70 06:12:16662Msauevdw QqergqdPEWMGKKEUSQQ2740-66-25 06:12:003.1[facility] PksalfaTPXLHUQGHRGN3000-78-42 06:12:48225Lmrtmned Andry NWEJQXJZDYAQ8972-18-37 06:12:0026[facility] NjfkwfrIECTWIWCTOCT3766-01-78 06:12:00 9.2[facility] DwbnrwjRJPPKSZTAPNL4503-12-05 06:12:13056Pvqxrifo [place] UPLOOVXRLBESH3850-14-76 06:12:00Negative *NA*(12/09/18 1:12 AM)[facility] And[facility] HAPWAGCCNP8273-47-36 06:12:008.2[facility] WtihahqDXMQAQUNEM7480-48-97 06:12:00 4.24[facility] HycsgcdFWLRYGTZWO8445-96-37 06:12:0013.6[facility] HermannHEMATOLOGY 2018-12-09 06:12:0040.2[facility] KziueyhHNUHOVVGLP1576-98-24 06:12:0094.8[facility] YjpylvmGDHQKOWZDT0163-67-77 06:12:00* Test Item Value Reference Range Interpretation Comments MCH (test code = MCH) 32.2 pg 27.0-31.0 [facility] RrkizqqZMADTWGVFP9133-17-02 06:12:0033.9[facility] HermannHEMATOLOGY 2018-12-09 06:12:0015.7[facility] EjgfnblOTICLALQDA4223-69-66 06:12:39010Vghzppob NjbxsfgHDMMTLSRMN5008-06-74 06:12:006.3[facility] RynxexnMECFMIPDSW2475-33-02 06:12:0057.2[facility] VsdczhaTKASOLITKN7372-60-06 06:12:0037.4[facility] Andry NOVCKXNIRL9765-80-24 06:12:004.0[facility] StpluunBBQOLCFNCZ6287-40-82 06:12:000.5 [facility] EguhzuxHKYWXWXJQL2774-76-74 06:12:000.9[facility] HermannHEMATOLOGY 2018-12-09 06:12:004.7[facility] MikksdhYBRPCGFSOM5503-00-14 06:12:003.1[facility] UazqwfbBQGGMHXYLM5924-47-79 06:12:000.3[facility] ZydkoomIHFLTRERZZ6647-39-92 06:12:000.1[facility] YxmmuvfUCJXQHMWIK3419-73-83 06:12:00<2 (12/09/18 1:12 AM) [facility] CupfevhJBMTNFBEEE7913-67-14 06:12:75359Moggxslm HermannTOXICOLOGY 2018-12-09 06:12:000.485[facility] DdxwrapYEVEKOWRAW3428-58-45 06:12:003.2[facility] HermannURINE AND ALXYS7712-80-12 06:12:00Colorless *NA*(12/09/18 1:12 AM)[facility]annURINE AND SIAID9143-35-29 06:12:00Clear (12/09/18 1:12 AM)[facility] And[facility] URINE AND VOSXZ9727-08-96 06:12:00* Test Item Value Reference Range Interpretation Comments UA Spec Grav (test code = UA Spec Grav) 1.002 1 [facility]annURINE AND TQQKC7519-63-91 06:12:00* Test Item Value Reference Range Interpretation Comments UA pH (test code = UA pH) 7.0 1 5.0-8.0 [facility]annUR[facility] AND JXBGY3216-32-74 06:12:00Negative *NA*(12/09/18 1:12 AM) [facility] AND ZKWEO9906-13-67 06:12:00Negative (12/09/18 1:12 AM) [facility] GEOKJ5406-14-04 06:12:00Negative (12/09/18 1:12 AM) [facility] ALFCM7740-75-67 06:12:00Negative (12/09/18 1:12 AM) [facility] GAKRG0822-75-00 20:52:00Light Yellow *NA*(12/05/18 3:52 PM)[facility] AND OWFOI3696-32-07 20:52:00Clear (12/05/18 3:52 PM) [facility] ZCVRH0233-58-18 20:52:00* Test Item Value Reference Range Interpretation Comments UA Spec Grav (test code = UA Spec Grav) 1.008 1 [facility] AND YNADG3192-73-25 20:52:00* Test Item Value Reference Range Interpretation Comments UA pH (test code = UA pH) 6.0 1 5.0-8.0 [facility] YFIDS2249-36-66 20:52:00Negative *NA*(12/05/18 3:52 PM) [facility] VQGGE8737-49-91 20:52:00Negative (12/05/18 3:52 PM) [facility] AJBTJ2018-10-90 20:52:00Negative (12/05/18 3:52 PM) [facility] SRYZK1279-55-38 20:52:00Negative (12/05/18 3:52 PM) [facility] RAQVS2194-70-04 20:52:00Not Indicated *NA*(12/05/18 3:52 PM)[facility] [id number] 16:30:00Negative *NA*(12/05/18 11:30 AM)[facility] XTKOXR1445-07-08 16:30:00Negative *NA*(12/05/18 11:30 AM)[facility] OYQNHX8395-50-67 16:30:00Negative *NA*(12/05/18 11:30 AM)[facility] MCNUFQ0262-60-61 16:30:00Negative *NA*(12/05/18 11:30 AM)[facility] WSDMDO9817-34-91 16:30:00Negative *NA*(12/05/18 11:30 AM)[facility] VSWWOZ1526-42-02 16:30:00Negative *NA*(12/05/18 11:30 AM)[facility] LXHATJ8597-00-02 16:30:00Negative *NA*(12/05/18 11:30 AM)[facility] IMIPKQ7212-42-29 16:30:00See Note (12/05/18 11:30 AM)[facility] QSGIW5978-84-50 15:08:0086[facility]ann[facility] PANEL 2018-12-05 15:08:003[facility] KGTVU6525-99-65 15:08:000.60[facility] IJCGQ0267-04-57 15:08:97073Xxmywrgn HermannCHEM TEPUU6411-24-15 15:08:003.6[facility] HSGYR2653-08-90 15:08:91723Qlukyocw HermannCHEM ZEUIH8165-04-50 15:08:0027[facility] KQFYR7739-02-27 15:08:009.3 [facility] TBYPG5414-36-53 15:08:008.2[facility]annCHE[facility] PANEL 2018-12-05 15:08:004.0[facility] ISJDK3541-42-71 15:08:0033[facility]ann[facility] ASWWR8005-08-38 15:08:0028[facility]ann[facility] VUALL5109-81-79 15:08:80840Frupwcwq HermannCHEM GYHTB1313-69-25 15:08:000.4[facility] GPSNW0907-10-34 15:08:67826Upniqrjv HermannCHEM NBPJT8881-82-11 15:08:0012.6 [facility] QRBTJ9969-73-84 15:08:00* Test Item Value Reference Range Interpretation Comments B/C Ratio (test code = B/C Ratio) 5 1 6-25 [facility] VSZYF0977-34-47 15:08:004.2[facility] PANEL 2018-12-05 15:08:00* Test Item Value Reference Range Interpretation Comments A/G Ratio (test code = A/G Ratio) 1.0 1 0.7-1.6 [facility] LsmeltrQINRFHTAVEITT5517-15-92 15:08:00Negative *NA*(12/05/18 10:08 AM) [facility] VlkxqylSBITJUJSSU8504-62-32 15:08:007.8[facility]annHEMATOLOGY 2018-12-05 15:08:004.26[facility] XccrrmjAUHAGTTNDJ3911-27-89 15:08:0013.6[facility] KbxzrswZBKASOTNSE4811-96-41 15:08:0040.2[facility] PexxehnIPLRYCXMSX1969-10-32 15:08:0094.3[facility] MchjzrtBJEAFFTEBN5312-52-62 15:08:00* Test Item Value Reference Range Interpretation Comments MCH (test code = MCH) 31.8 pg 27.0-31.0 [facility] LriunhtTWUYKWJMAW6131-53-77 15:08:0033.8[facility]annHEMATOLOGY 2018-12-05 15:08:0015.5[facility] HlqaqzyCDNUEZVSDH2673-07-09 15:08:58751Yywalaeu IxwmkfkOQHDFMXGIL7606-72-28 15:08:006.5[facility] SrekylwGONKVNWHVU0731-71-82 15:08:0065.7[facility] LsvtpnjAMJUXDMYIJ0279-13-56 15:08:0030.3[facility] [place] OYJCHBVJQC1342-84-02 15:08:002.9[facility] KpedfxyTSVTJOFODL9410-80-62 15:08:000.3 [facility] GjgwsudCFJIZKPXRG0777-04-87 15:08:000.8[facility]Y 2018-12-05 15:08:005.1[facility] RjvddohUUBIUGDTIK8743-57-89 15:08:002.4[facility] QgvvcquWVKWXMWEBX1030-13-51 15:08:000.2[facility] AifdiozAIJYCVAKVP0273-17-05 15:08:000.1[facility] OmmoryaNLLCLNCPPD5316-63-51 15:08:00<2 (12/05/18 10:08 AM) [facility] NxxbhjtBZUXNQPKID6377-47-38 15:08:70835Guowqkor HermannTOXICOLOGY 2018-12-05 15:08:000.359[facility] TacpqstLMHJWOPFGZ8586-50-87 15:08:003.9[facility] KkeytquMOVDVQENAC3620-18-29 09:11:70696Cpassleg ZqxvejoKPXAKVETLB8074-82-95 09:11:000.377[facility] HermannCHEM YPOXA4060-58-68 06:40:0072[facility] HermannCHEM ONUYR6773-22-24 06:40:005[facility] HermannCHEM WVCBO8347-30-15 06:40:000.67 [facility]annCHEM POGCP6617-84-97 06:40:79612Jwlrbalx HermannCHEM PANEL 2018-10-18 06:40:003.3[facility] HermannCHEM ZDJLF9254-99-54 06:40:09221Wpdajejk HermannCHEM ACEFX9304-86-79 06:40:0026[facility] HermannCHEM HYUYE1905-63-28 06:40:008.4[facility] HermannCHEM BUHBO9728-92-13 06:40:77883Rhbplvvx HermannCHEM GIVPB6280-46-33 06:40:0013.3[facility] EkqcvgzKYABWKUAPRUZY5529-33-38 06:40:00 Negative *NA*(10/18/18 1:40 AM)[facility] QlhtablIZOTKJSRWX7588-76-79 06:40:004.2 [facility] YysnceiXJGEPNFCQR6827-20-65 06:40:004.38[facility] HermannHEMATOLOGY 2018-10-18 06:40:0014.0[facility] AmyvyrnIMNBASCELJ0414-10-10 06:40:0042.1[facility] HvfvmsgFVWBIVRCAZ8417-26-94 06:40:0096.0[facility] ObwhtjaSGYTYMYKVV3312-19-04 06:40:00* Test Item Value Reference Range Interpretation Comments MCH (test code = MCH) 32.0 pg 27.0-31.0 [facility] IcjpkseESCHAOQKVQ2624-05-43 06:40:0033.4[facility] HermannHEMATOLOGY 2018-10-18 06:40:0015.6[facility] UpvxyjjEVRKBIFBZX7382-70-11 06:40:00023Harjtjxm OwmijacZRSHNLNPPY5794-50-60 06:40:007.8[facility] FgxyxyjMJMYQRIGRZ8244-91-64 06:40:0040.6[facility] EvxjfweODGRISHCQA2807-00-46 06:40:0044.7[facility] Andry ZANGCHPIKA3559-25-90 06:40:0012.4[facility] WzdleppAJIFMAPBHY6903-80-31 06:40:00 1.3[facility] NxusjofKHLWDAQFNA5643-81-11 06:40:001.0[facility] HermannHEMATOLOGY 2018-10-18 06:40:001.7[facility] RhozqxbVCSALAUPDN9375-69-45 06:40:001.9[facility] GbagiliVEXNHWHIBM4388-92-41 06:40:000.5[facility] VawrracFTYWINLUUJ5399-49-63 06:40:000.1[facility]annUR[facility] AND WCGRO6216-50-91 04:27:00<1[facility] [place] URINE AND WTJDY7766-34-86 04:27:00<1[facility] AND RZWPT0041-66-77 04:27:00Negative *NA*(09/24/18 11:27 PM)[facility] IKTVE2325-69-14 04:27:00Negative (09/24/18 11:27 PM)[facility] DLIGO8316-35-99 04:27:00Negative (09/24/18 11:27 PM)[facility] ARALJ7589-08-01 04:27:00Negative (09/24/18 11:27 PM)[facility] UOJGA6718-76-51 04:27:00* Test Item Value Reference Range Interpretation Comments UA pH (test code = UA pH) 6.0 1 5.0-8.0 [facility] BYCPG9468-68-03 04:27:00* Test Item Value Reference Range Interpretation Comments UA Spec Grav (test code = UA Spec Grav) 1.003 1 [facility] LJKMR0829-54-81 04:27:00Clear (09/24/18 11:27 PM) [facility] FHEO0678-87-11 04:27:00Negative (09/24/18 11:27 PM)[facility] AlmvkhgHUHUWDIMJLUO4537-08-41 04:15:0012.2[facility] EzwosqfGDCMFOKZWKYC6312-88-84 04:15:00* Test Item Value Reference Range Interpretation Comments B/C Ratio (test code = B/C Ratio) 7 1 6-25 [facility] JjnauuzICFQSFZAHUJD5234-25-83 04:15:00* Test Item Value Reference Range Interpretation Comments A/G Ratio (test code = A/G Ratio) 1.1 1 0.7-1.6 [facility] StzvyyhYOGPKKJIMNQB7085-95-31 04:15:003.8[facility] HermannELECTROLYTES 2018-09-25 04:15:43886Hohwhsuy MoowpeiBKEMVAGHLVFQ6942-36-63 04:15:24624Joxhrtpi NcovwnrMFSIADCHCGKO5411-11-21 04:15:000.2[facility] XkocoggBPSRWRHXQCVQ3508-70-99 04:15:63483Hpiqhwfp ZdqzggbOZRNHNFNMVZV2374-24-90 04:15:26348Rgwbulas [place] ANVAUCKNVEMP5141-74-04 04:15:008.7[facility] TwgkiumOTWENMSHQBJD8489-09-43 04:15:0025[facility] IyhuswbXIASWSEEVTBD4683-61-63 04:15:0098[facility] [place] SUHUORQWKFOA2996-05-44 04:15:004.0[facility] DvdpkktYTDZPYHVYUXF2220-00-73 04:15:007.8[facility] RyotsfaBCOGJEHRGUIF2303-18-54 04:15:004[facility] [place] TPIZJCDTAYDF5716-88-53 04:15:004.2[facility] DjoiqdrKABDBDRHPFUP5436-82-80 04:15:10413Hkyqngtl TevbctaIIGXSVSHUWFC3640-80-20 04:15:000.59[facility] [place] UURHRTYRBJRZ9940-30-65 04:15:0077[facility] BzgbyjiUPEFCQGQJQ7212-17-14 04:15:00 2.2[facility] KvnpslqUMSVGWRQHC2820-15-03 04:15:000.4[facility] HermannHEMATOLOGY 2018-09-25 04:15:000.2[facility] BgaoaotMBTCCDVREC3622-21-06 04:15:009.2[facility] QxusgetZTNFOHCGVH9774-22-92 04:15:001.8[facility] SrbxhtlIDQCPJTSYW9054-25-16 04:15:0047.8[facility] VjjuunmPSGJLKZHEP9780-63-89 04:15:0041.0[facility] [place] OISBHCFAXW6714-33-57 04:15:000.1[facility] ZfmebjzFFFBZHTADE5283-51-64 04:15:001.9 [facility] QtufqwmOXTEETHRIA4676-46-95 04:15:007.6[facility] HermannHEMATOLOGY 2018-09-25 04:15:0033.6[facility] TwdolhnWIYOPMNFKR9545-25-01 04:15:00* Test Item Value Reference Range Interpretation Comments MCH (test code = MCH) 31.8 pg 27.0-31.0 [facility] HpnmhukYOKSGPBELA7151-99-11 04:15:0043.5[facility] HermannHEMATOLOGY 2018-09-25 04:15:0014.6[facility] WvtxuzcZOGZZZRSLG3257-09-75 04:15:0094.6[facility] YhrixkhLJQNSDMLHS1241-24-68 04:15:0015.1[facility] UaldsetJRCKOOKAEY4306-70-48 04:15:14935Wpdnfzan HgijtsvNFUYQMGCVC6566-42-54 04:15:004.6[facility] [place] ZCKZPIJJVE5011-10-63 04:15:004.60[facility] HermannCT Abdomen and Pelvis w/o Zjdojuoe1233-15-14 17:25:19Patient: MANDY ASCENCIO Date/Time09/14/2018 17:17 CDTReason for [...] Adam FSigned (Electronic Signature): 01/2019 5:25 pmLipid Gphgu8962-60-00 03:57:40* Test Item Value Reference Range Interpretation Comments Cholesterol Total (test code = Cholesterol Total) 190 mg/dL 0-20 0 RISK OF HEART DISEASEPublished by [employer] Analyte Optimal Borderline Increased RiskCHOL [...] is LDL/HDL Ratio=LDL Calc/HDL Chol Thyroid Stimulating Ogxqvpi7360-25-35 03:57:40* Test Item Value Reference Range Interpretation Comments TSH (test code = TSH) 0.611 mIU/mL 0.270-4.200 RPR Utylqmgzktf1665-09-00 03:40:29* Test Item Value Reference Range Interpretation [...] code = Expiration Dt) 01-05-20 N Alcohol Gupvr6045-91-98 05:54:38* Test Item Value Reference Range Interpretation Comments Ethanol Level (test code = Ethanol Level) 0.14 g/dL 0.00-0.01 H Intoxicated 0.080 g/dL or more Ethanol Inst (test code = Ethanol Inst) 145 N Comprehensive Metabolic Mrtjl5792-26-81 22:36:43* Test Item Value Reference Range Interpretation [...] A/G Ratio) 1.6 ratio N Comprehensive Metabolic Yhrud5463-19-57 22:36:43* Test Item Value Reference Range Interpretation [...] is not provided, and the patient is -Spanish, multiply by 1.212. If sex is not [...] by the National Kidney Foundation, http://nkdep.nih.gov Alcohol Ayzri4269-18-75 22:36:43* Test Item Value Reference Range Interpretation Comments Ethanol Level (test code = Ethanol Level) 0.38 g/dL 0.00-0.01 Verified by repeat analysis.Critical results called to susie austin at 09/11/2018 22:36:33 CDT by og. Read back and verified? yesIntoxicated 0.080 g/dL or more Ethanol Inst (test code = Ethanol Inst) 379 [address] Comprehensive Metabolic Epriy8842-92-04 22:36:43* Test Item Value Reference Range Interpretation [...] is not provided, and the patient is -Spanish, multiply by 1.212. If sex is not [...] is not provided, and the patient is -Spanish, multiply by 1.212. If sex is not [...] Kidney Foundation, http://nkdep.nih.gov Drugs of Abuse Urine 87640-26-15 22:21:12* Test Item Value Reference Range Interpretation [...] Ur) Negative Negative Urinalysis with Microscopic if mbwbzhzbe7028-65-10 22:18:12* Test Item Value Reference Range Interpretation [...] Result created by rule GL_SJM_UA_MICRO_IND HCG Qualitative Pzhbg6765-16-23 22:17:09* Test Item Value Reference Range Interpretation [...] Lot # (test code = Lot #) [id number] N Expiration Dt (test code = Expiration Dt) 2019-12-05 N Neg Control (test code = Neg Control) Negative Pos Control (test code = Pos Control) Positive Internal QC (test code = Internal QC) Acceptable IG Taaof1664-55-71 22:10:55* Test Item Value Reference Range Interpretation Comments IG (test code = IG) 0.3 % 0.0-5.0 IG Abs (test code = IG Abs) 0 x10 N Complete Blood Count with Cdbqhhqyyxnr3292-46-86 22:10:54* Test Item Value Reference Range Interpretation [...] code = IPF) 0 % N Automated Oqmwlbnrthgw4864-25-34 22:10:54* Test Item Value Reference Range Interpretation Comments Neutro Auto (test code = Neutro Auto) 42.2 % 36.0-70.0 Lymph Auto (test code = Lymph Auto) 48.4 % 12.0-44.0 H [place] Auto (test code = [place] Auto) 7.3 % 0.0-11.0 Eos, Auto (test code = Eos, Auto) 0.8 % 0.0-7.0 Basophil Auto (test code = Basophil Auto) 1.0 % 0.0-2.0 Neutro Absolute (test code = Neutro Absolute) 1.6 x10 1.6-7.4 Lymph Absolute (test code = Lymph Absolute) 1.86 x10 .50-4.60 [place] Absolute (test code = [place] Absolute) .28 x10 .00-1.20 Eos Absolute (test code = Eos Absolute) 0.03 x10 0.00-0.74 Baso Absolute (test code = Baso Absolute) 0.04 x10 0.00-0.21 CT Spine Cervical w/o Omlbzlhq6021-22-11 22:00:14Patient: MANDY ASCENCIO Date/Time09/11/2018 21:42 CDTReason for ExamTraumaReportFacial Examination: CT of the cervical spine without contrastLocation code: G45Vajopweaig: NoneTechnique:Thin section axial contiguous images were obtained [...] Electronic Signature): 09/11/2018 10:00 pmCT Brain/Head w/o Xgwnlvdl3077-06-11 21:57:59Patient: MANDY ASCENCIO Date/Time09/11/2018 21:42 CDTReason for ExamTraumaReportExamination: Head CT without contrastLocation code: O26Nqkthfwtzq: NoneTechnique:Axial contiguous images through the brain were [...] James ESigned (Electronic Signature): 09/11/2018 9:57 pmCHEM LUABM9951-81-99 07:42:00 120[facility]annCHEM DWXPJ6114-70-85 07:42:0030[facility] HermannCHEM PANEL 2018-09-09 07:42:17590Tynlsfpw HermannCHEM SHRYK2624-17-94 07:42:003.7[facility]annCHEM IEBLH3432-70-79 07:42:008.3[facility]annCHEM BGHSP2034-81-86 07:42:21639Pbaqbhtp HermannCHEM SIXPK0163-02-32 07:42:000.64[facility] HermannCHEM CIADQ6216-19-23 07:42:003[facility]annCHEM OTWDY2084-65-41 07:42:0077[facility] HermannCHEM BEUKV1146-28-55 07:42:008.7[facility] HermannDRUG IJGMLI9099-47-38 07:42:00Negative *NA*(09/09/18 2:42 AM)[facility]annDR[facility] YVVJEA3835-41-02 07:42:00See Note (09/09/18 2:42 AM)[facility]annDR[facility] VSLSIX5944-60-48 07:42:00 Negative *NA*(09/09/18 2:42 AM)[facility]annDR[facility] UBYBJO0196-44-76 07:42:00 Negative *NA*(09/09/18 2:42 AM)[facility]annDR[facility] LLXADO1034-74-19 07:42:00 Negative *NA*(09/09/18 2:42 AM)[facility]annDR[facility] BKATCX4277-53-17 07:42:00 Negative *NA*(09/09/18 2:42 AM)[facility]annDR[facility] OSCBCI9730-09-36 07:42:00 Negative *NA*(09/09/18 2:42 AM)[facility]annDR[facility] FIPQMR0819-55-10 07:42:00 Positive *ABN*(09/09/18 2:42 AM)[facility] HwcselzVOBZPNEERYEJM0352-89-24 07:42:00 Negative *NA*(09/09/18 2:42 AM)[facility] VcvovtlZTRBLBWXYF5274-08-27 07:42:0011.7 [facility] PdytejtRWLNUYUMZM5549-46-98 07:42:0058.0[facility] HermannHEMATOLOGY 2018-09-09 07:42:001.3[facility] MjnfbttXZPEPPFXXA4668-27-83 07:42:002.1[facility] AmoanwgZFWVKLEDPH1722-08-30 07:42:002.1[facility] ClzubggFARZHDLZZF6504-34-22 07:42:000.1[facility] WouxiffRWUSTYSWLO5657-27-39 07:42:000.4[facility] IXYPVFKNLB5632-97-29 07:42:0026.9[facility] PggwvdvYUJUIVSZXY5414-44-70 07:42:00 1.0[facility] FwzbabwQSRYQJLHCO0219-48-60 07:42:007.8[facility] HermannHEMATOLOGY 2018-09-09 07:42:73760Rptvzwsb MnzyjiuGTUVBQJVVE7586-50-89 07:42:0014.8[facility] EdeqhhmXUEGUKUZSB7715-84-23 07:42:0094.8[facility] RfhwnuwRBCQPFTFQK6190-05-17 07:42:00* Test Item Value Reference Range Interpretation Comments MCH (test code = MCH) 31.4 pg 27.0-31.0 [facility] XmqarqnMTRGDLUBTI8786-45-77 07:42:0033.1[facility] HermannHEMATOLOGY 2018-09-09 07:42:0014.5[facility] LrairdhRPNHUHHYYR4838-22-44 07:42:0043.8[facility] QbxzwkjZQNIKFLILS4415-44-60 07:42:004.62[facility] TxmxnndMXPTOCTLNP9631-34-35 07:42:003.7[facility] KmrssamCHOHHORDVN7767-64-81 07:42:73580Fcuarocf Andry BYJBCKIGRT9518-10-73 07:42:000.345[facility]UR[facility] AND TIHEC7477-49-34 07:42:00Negative *NA*(09/09/18 2:42 AM)[facility] GNPHJ1758-24-99 07:42:00Negative (09/09/18 2:42 AM)[facility] FNCNC6478-58-80 07:42:00Negative (09/09/18 2:42 AM)[facility] AND YRWKF8044-21-06 07:42:00Negative (09/09/18 2:42 AM)[facility]UR[facility] OFXHL5420-57-65 07:42:001[facility] AND OPMIY0676-97-35 07:42:00<1[facility] [place] URINE AND EAGZF9149-99-69 07:42:00Clear (09/09/18 2:42 AM)[facility] AND RENWV1732-59-57 07:42:00* Test Item Value Reference Range Interpretation Comments UA Spec Grav (test code = UA Spec Grav) 1.004 1 [facility] AND NUUZV2205-93-91 07:42:00* Test Item Value Reference Range Interpretation Comments UA pH (test code = UA pH) 6.0 1 5.0-8.0 [facility]annDRUG ZBPBPU6868-48-72 00:55:00Positive *ABN*(08/23/18 7:55 PM) [facility]DR[facility] CZQCGU6130-07-89 00:55:00Negative *NA*(08/23/18 7:55 PM) [facility]annDR[facility] BJVDFA8709-20-99 00:55:00Negative *NA*(08/23/18 7:55 PM) [facility]DR[facility] LNCZTO6099-83-28 00:55:00See Note (08/23/18 7:55 PM)[facility]annDR[facility] TDAJQW7461-33-51 00:55:00Negative *NA*(08/23/18 7:55 PM)[facility]annDR[facility] YOLHVE7005-89-83 00:55:00Negative *NA*(08/23/18 7:55 PM)[facility]annDR[facility] HHPVYQ8835-89-19 00:55:00Negative *NA*(08/23/18 7:55 PM)[facility]annDRUG MWPXRE8678-89-20 00:55:00Negative *NA*(08/23/18 7:55 PM)[facility] UICNE6409-96-55 00:55:001[facility]UR[facility] AND STOOL 2018-08-24 00:55:00<1[facility]UR[facility] AND TOQJJ8082-72-51 00:55:00Negative (08/23/18 7:55 PM)[facility] AND MBUYZ7559-19-68 00:55:00Negative (08/23/18 7:55 PM)[facility] XLCHE6607-42-12 00:55:00Negative (08/23/18 7:55 PM)[facility] XEJKV1006-93-66 00:55:00* Test Item Value Reference Range Interpretation Comments UA pH (test code = UA pH) 6.0 1 5.0-8.0 [facility] AND XQVCG6803-90-58 00:55:00Negative *NA*(08/23/18 7:55 PM) [facility] RKYMD2282-59-01 00:55:00* Test Item Value Reference Range Interpretation Comments UA Spec Grav (test code = UA Spec Grav) 1.004 1 [facility] AND JVKEH5140-89-37 00:55:00Clear (08/23/18 7:55 PM) [facility] HermannCHEM OCCGE9113-91-93 00:33:00* Test Item Value Reference Range Interpretation Comments B/C Ratio (test code = B/C Ratio) 8 1 6-25 [facility]annCHEM IBKUP9476-90-35 00:33:0013.7[facility] HermannCHEM PANEL 2018-08-24 00:33:00* Test Item Value Reference Range Interpretation Comments A/G Ratio (test code = A/G Ratio) 1.1 1 0.7-1.6 [facility]annCHEM ALJWK9536-90-13 00:33:003.6[facility] HermannCHEM PANEL 2018-08-24 00:33:53102Plofedcn HermannCHEM IHRIT3914-62-52 00:33:0073[facility] HermannCHEM WHYZC6756-50-26 00:33:003.8[facility] HermannCHEM SGZUM5755-29-70 00:33:007.4[facility] HermannCHEM KGIKM4067-89-56 00:33:75170Mzeelyrk HermannCHEM IGGIS1722-25-56 00:33:0061[facility]annCHEM OKSZY5934-48-64 00:33:000.2 [facility]annCHEM KUSQE3719-92-57 00:33:0094[facility] HermannCHEM PANEL 2018-08-24 00:33:000.64[facility] HermannCHEM SBQLQ7317-75-63 00:33:005[facility]annCHEM WLOEW6085-27-46 00:33:36911Pbxpqhfo HermannCHEM RGLAX2629-18-55 00:33:003.7[facility]annCHEM YTTOU8478-97-55 00:33:05225Okgonopc HermannCHEM MJHHK0452-97-70 00:33:008.5[facility] HermannCHEM OCCYL6918-93-99 00:33:0024 [facility] VjzksszBBRBXKTXILKLQ6465-48-39 00:33:00Negative *NA*(08/23/18 7:33 PM) [facility] OexsqhuJEDITLXDUQ6841-19-39 00:33:000.1[facility]annHEMATOLOGY 2018-08-24 00:33:000.1[facility] HpptvltBQAIDTPTWR5458-16-27 00:33:002.3[facility] SslamiaCYTXBAVQVP2880-60-83 00:33:001.6[facility] ZvivetvXKEUUEEETM7186-38-55 00:33:000.5[facility] IztoaqyYQNMFQCVEI2810-84-29 00:33:002.4[facility] [place] OTZKXUBDAK2124-11-44 00:33:001.4[facility] ElqfnfmFGEAQUHVVH2421-82-26 00:33:00 10.8[facility] EiwpcvfZTKVEITCQC0763-68-35 00:33:0034.9[facility] HermannHEMATOLOGY 2018-08-24 00:33:0050.5[facility] IepkmztSNYPZMJWTD9937-92-45 00:33:0094.4[facility] MbvowxiAOIYVIPIDT5317-48-33 00:33:0042.3[facility] GgjexpbJYSHJMLDGB9159-34-23 00:33:0033.1[facility] YujayyzZVTVVRYPKJ4150-01-14 00:33:00* Test Item Value Reference Range Interpretation Comments MCH (test code = MCH) 31.2 pg 27.0-31.0 [facility] BgiarwdQIKGMYQZVZ6076-31-60 00:33:004.6[facility] HermannHEMATOLOGY 2018-08-24 00:33:0014.0[facility] XuqmrmzZIQHQYSGBM1828-39-76 00:33:004.48[facility] LdgehzrNNBLOIVRKO1038-97-18 00:33:39692Mmekxwxj AewqrsnPIZUTLHWLJ7676-20-20 00:33:0013.7[facility] TnraapsIXMWYCEJOG2863-98-93 00:33:007.8[facility] [place] KXFRKMZPHS8778-59-31 00:33:000.369[facility] SgyygphTOQZWLVKMW0847-71-03 00:33:00 369[facility] VbcpnbuARSZORBCHS3321-25-99 00:33:003.4[facility] HermannTOXICOLOGY 2018-08-24 00:33:00<2 (08/23/18 7:33 PM)[facility]annDRUG OXETOV6505-90-49 02:39:00See Note (08/01/18 9:39 PM)[facility]annDR[facility] XLYJIO0754-47-63 02:39:00 Negative *NA*(08/01/18 9:39 PM)[facility]annDR[facility] HXFVRY1973-31-83 02:39:00 Negative *NA*(08/01/18 9:39 PM)[facility]annDR[facility] QLTMWD8540-32-12 02:39:00 Negative *NA*(08/01/18 9:39 PM)[facility]annDR[facility] DIATKL6953-10-09 02:39:00 Negative *NA*(08/01/18 9:39 PM)[facility]annDR[facility] ZZDBLL0131-81-05 02:39:00 Negative *NA*(08/01/18 9:39 PM)[facility]annDR[facility] JNUBAB0870-36-93 02:39:00 Negative *NA*(08/01/18 9:39 PM)[facility]annDR[facility] EVWQEP4035-26-81 02:39:00 Negative *NA*(08/01/18 9:39 PM)[facility] AVBMI8859-58-19 02:39:00 Negative (08/01/18 9:39 PM)[facility] BFSUQ0868-77-58 02:39:00<1 [facility] AUXAY3737-46-75 02:39:00<1[facility] AND XVFBD2559-70-71 02:39:00Negative (08/01/18 9:39 PM)[facility] VUSSG6450-26-32 02:39:00Negative (08/01/18 9:39 PM)[facility] TPHAF7721-03-15 02:39:00* Test Item Value Reference Range Interpretation Comments UA pH (test code = UA pH) 6.0 1 5.0-8.0 [facility] YFEKK6984-11-89 02:39:00Negative *NA*(08/01/18 9:39 PM) [facility] PSSBC4906-11-18 02:39:00Clear (08/01/18 9:39 PM) [facility] DGXDI8954-42-94 02:39:00* Test Item Value Reference Range Interpretation Comments UA Spec Grav (test code = UA Spec Grav) 1.004 1 [facility] TvfkvetVCKXMBFCPF3211-75-06 02:18:000.419[facility] HermannTOXICOLOGY 2018-08-02 02:18:15089Fbkwswge HermannCARDIAC RBBFFRH7836-39-72 02:04:0086 [facility] QozuxaxBKDOQJMLWSJH1044-12-19 02:04:0019.6[facility] HermannELECTROLYTES 2018-08-02 02:04:00* Test Item Value Reference Range Interpretation Comments B/C Ratio (test code = B/C Ratio) 11 1 6-25 [facility] TjnyyapVKPXHRXUBUXI8156-82-23 02:04:00* Test Item Value Reference Range Interpretation Comments A/G Ratio (test code = A/G Ratio) 1.1 1 0.7-1.6 [facility] VsfbozwJAPNJCEZAKSL5101-85-01 02:04:003.5[facility] HermannELECTROLYTES 2018-08-02 02:04:58138Ejioexdn PxtyxxzZGZNHRGWBVSG0199-61-74 02:04:008[facility] UhrkcxiCZTAHOAVLOBS9960-98-76 02:04:000.71[facility] KsznfyiZAFQNJPJTDRB8366-28-06 02:04:0064[facility] WgekbqhQRJAOAXGLTYQ4814-89-42 02:04:000.2[facility] VRDGCSOXTTYD1512-57-38 02:04:003.7[facility] SkkywazUXIGHTXWPINO2721-05-46 02:04:007.2[facility] RpfgsanSIDIZKCNKQOL2162-52-19 02:04:0093[facility] [place] VJOSMLGHZBYO4862-42-78 02:04:0028[facility] ZtiguaqKBYTHCKMUZSK0641-74-29 02:04:00 32[facility] XwyxflsRQFWVATFTDVW6824-04-61 02:04:50850Keniijzi HermannELECTROLYTES 2018-08-02 02:04:003.6[facility] QvqflwbHGYUKBTGHTMH9331-01-64 02:04:008.7[facility] IochpcwAGKMVASNUCGY1620-97-19 02:04:91533Jyncsoqm TqegbcuIYJMWGXYYNMF0453-27-05 02:04:0022[facility] FlxeyotCCSTFOVFOWTDY6975-58-25 02:04:00Negative *NA*(08/01/18 9:04 PM)[facility] SksuftbMFYYAYGNNV5421-01-29 02:04:000.1[facility] [place] LWOGCANSMU0684-99-00 02:04:000.1[facility] TsjalhxZXDBGCSTIQ3390-07-47 02:04:000.3 [facility] WlirxmjXBJDQBIPKD6794-13-94 02:04:0024.4[facility] HermannHEMATOLOGY 2018-08-02 02:04:0069.9[facility] HymnxzqGMSIKUDACH5771-19-28 02:04:000.8[facility] WsktafjSAFYACRIPD2707-87-43 02:04:002.1[facility] EnjtkxrNRMWFFNEKU5613-37-88 02:04:005.9[facility] McubbqhLACWCDUSZN4484-48-36 02:04:001.0[facility] XTIWJORWWF7160-66-23 02:04:003.9[facility] XhnrkvmZZJUSNFXTV7663-67-13 02:04:00 12.8[facility] UovsitzPOIGBCJFTX8345-57-61 02:04:0013.3[facility]annHEMATOLOGY 2018-08-02 02:04:91339Dhhieifq FzdmfarYBFHUUEPJL1763-66-93 02:04:0033.8[facility] QexxppcWWXFQEZIUW7214-28-22 02:04:007.4[facility] DmcjnysBDRREKNGAC9992-56-52 02:04:00* Test Item Value Reference Range Interpretation Comments MCH (test code = MCH) 31.7 pg 27.0-31.0 [facility] AyrgzutRNJGEFNTJQ2959-01-65 02:04:0038.0[facility]annHEMATOLOGY 2018-08-02 02:04:0093.9[facility] PliysqrCFEELOUAAJ9189-17-86 02:04:004.05[facility] AvkvsxgPGUARVJCMJ5211-32-53 02:04:008.4[facility]annCHEM YTOUE6517-10-71 21:59:008.7[facility]annCHEM WCULH4736-94-76 21:59:15389Lcbnpphm HermannCHEM AFAKY1067-21-02 21:59:003.8[facility]annCHEM YIQVT6162-97-47 21:59:85637 [facility]annCHE[facility] LTMRX6398-09-53 21:59:36945Ioqixrjt HermannCHEM PANEL 2018-07-30 21:59:0018[facility]annCHEM SDBZP4675-62-74 21:59:000.64[facility]annCHEM NMVCR1479-07-79 21:59:004.0[facility]annCHEM HJWEX9664-89-89 21:59:0027[facility]annCHEM KNEJF8759-25-22 21:59:0090[facility]annCHEM LEQFS4832-81-87 21:59:004[facility]annCHE[facility] KCZDI0959-17-91 21:59:000.2 [facility]annCHEM DEODZ4763-74-02 21:59:007.6[facility]annCHEM PANEL 2018-07-30 21:59:0079[facility]annCHEM HCLWL1570-87-71 21:59:0031[facility]annCHEM JPJSC3081-13-86 21:59:00* Test Item Value Reference Range Interpretation Comments B/C Ratio (test code = B/C Ratio) 6 1 08-29 [facility]annCHE[facility] KZALA7198-19-55 21:59:0013.8[facility] HermannCHEM PANEL 2018-07-30 21:59:003.6[facility]annCHEM KJWBL1385-89-85 21:59:00* Test Item Value Reference Range Interpretation Comments A/G Ratio (test code = A/G Ratio) 1.1 1 0.7-1.6 [facility]annDR[facility] RDELYY9747-61-52 21:59:00Negative *NA*(07/30/18 4:59 PM) [facility]annDR[facility] WKYNIA1975-27-22 21:59:00Negative *NA*(07/30/18 4:59 PM) [facility] KEQBDH9231-10-31 21:59:00Negative *NA*(07/30/18 4:59 PM) [facility] TQIBFY1217-24-54 21:59:00Negative *NA*(07/30/18 4:59 PM) [facility] RRDUKC7767-06-23 21:59:00Negative *NA*(07/30/18 4:59 PM) [facility] UDVCNJ8778-57-80 21:59:00Negative *NA*(07/30/18 4:59 PM) [facility] EXBINO7481-71-77 21:59:00Negative *NA*(07/30/18 4:59 PM) [facility]DR[facility] NZZWAZ9951-93-44 21:59:00See Note (07/30/18 4:59 PM)[facility] BymmmxzQYJOZHOTHI7960-12-99 21:59:000.6[facility] YdqxviqVVABSWQUYV9800-48-91 21:59:005.0[facility] ZnndqynZFTAGSVYLB9514-11-78 21:59:003.1[facility] IKKVNLIBGN3648-07-07 21:59:000.3[facility] QddwhiaQKSZXGMWJN3526-59-56 21:59:000.1 [facility] WimufqiRXMCYCHZVX3362-85-57 21:59:000.1[facility]annHEMATOLOGY 2018-07-30 21:59:001.1[facility] ObecxffQLMXYFVGET8516-75-12 21:59:003.1[facility] WilkqsmZHCRPOEEDF6641-64-16 21:59:0036.3[facility] GbqisdrEQCZVXXIDS4272-58-25 21:59:0058.9[facility] AggbgngSDMZWPFUZM5963-18-56 21:59:0013.7[facility] LZRDDWUROE2964-39-81 21:59:0033.0[facility] JibyzrxTDKWXGNUMY7718-23-45 21:59:00 7.5[facility] VglybrmVFLZULKGOK4918-81-15 21:59:79407Eiszwdue HermannHEMATOLOGY 2018-07-30 21:59:008.5[facility] IctijqbYOPZTAXPLV5796-43-59 21:59:0093.7[facility] KelfsrqHOVACAZEYW5964-16-65 21:59:0041.6[facility] LgvrgmqRSIGERWUAU4046-28-46 21:59:00* Test Item Value Reference Range Interpretation Comments MCH (test code = MCH) 30.9 pg 27.0-31.0 [facility] AznytvoTWIARPJOZL7598-00-00 21:59:0013.7[facility] HermannHEMATOLOGY 2018-07-30 21:59:004.44[facility] AdqpuspFVKDIDHEAS9027-69-94 21:59:000.346 [facility] BprucqzOOSJNFIVCH8850-78-41 21:59:17807Pbqizwgm HermannTOXICOLOGY 2018-07-30 21:59:00<2 (07/30/18 4:59 PM)[facility] RpjgljkBIDLCAUJHB1532-68-89 21:59:004.2[facility] HermannCHEM WTQFK3920-09-14 08:27:61085Hobonuvv HermannCHEM LOOWP1095-11-65 08:27:008.2[facility] HermannCHEM CWHGT3017-73-08 08:27:0026 [facility]annCHEM FCBHG8763-87-74 08:27:83878Ryckaxnm HermannCHEM PANEL 2018-07-27 08:27:003.6[facility] HermannCHEM AFGAP4642-89-02 08:27:09301Izsqsjen HermannCHEM RDIMG5377-85-79 08:27:28994Hpncevzw HermannCHEM UIOUT1929-05-84 08:27:006[facility] HermannCHEM UQTAC0903-14-49 08:27:000.59[facility]annCHEM IFPKC5968-59-57 08:27:0010.6[facility] ZcstadxMTFYKWIRMO9576-41-43 08:27:0017.3 [facility] GnncxstCHXQLHAJXU2125-22-28 08:27:0068.6[facility] HermannHEMATOLOGY 2018-07-27 08:27:002.3[facility] ZvuebyhNRDMVXEUZC4989-72-56 08:27:001.8[facility] YrluslyKQNINFSSJM7278-54-71 08:27:000.2[facility] HhkgpfnZZBLGKZBMQ6396-40-46 08:27:009.0[facility] QqyubhcJZEGJSTMJR9795-69-62 08:27:0013.6[facility] SEYOBXNUSC6594-99-09 08:27:000.3[facility] GdxrnyvQUESZYBTQV1988-16-09 08:27:00 34.2[facility] FpugediJJHKHBJOGV2733-34-43 08:27:00* Test Item Value Reference Range Interpretation Comments MCH (test code = MCH) 31.6 pg 27.0-31.0 [facility] UutiuvwWHIGHXOXIU6754-81-67 08:27:008.7[facility]annHEMATOLOGY 2018-07-27 08:27:0013.2[facility] MetvlbuLVRCIGKOLY5347-02-62 08:27:08318Ghpxuyco NvzhkhpPULWQSELSD8584-97-05 08:27:0092.4[facility] NumqlvjFLGEWMQWWN4576-33-72 08:27:0013.1[facility] KflrohsCXKKVBCOEU8530-72-82 08:27:0037.3[facility] MKSEHSOJDZ3344-23-21 08:27:004.03[facility] FvhosbiEZOADGYQQU0750-77-31 08:27:00 12.7[facility]annURINE IZKQ6947-33-37 01:34:00Negative (07/26/18 8:34 PM) [facility]annBLOOD BANK PQHSWBX3223-20-25 13:17:00Negative (07/26/18 8:17 AM) [facility] QftnbesCAQPRILVDLLO1939-41-90 13:17:0013.8[facility] HermannELECTROLYTES 2018-07-26 13:17:00436Gadgaqzj AhkogyuMHYBVYDRHHRQ6133-73-50 13:17:009.0[facility] JflsttoDIJSRQHSDVBL9971-36-99 13:17:003.8[facility] CugdytlKJMRWLMFDIHB0079-44-75 13:17:36403Vtjedvcm EjnkyvcKJYMHGUBMXGA2620-13-98 13:17:54163Xvwyxsfb [place] CSNAYCBCLXAX9908-70-73 13:17:0021[facility] ZeexejcKTEXZPXFBROE6058-66-57 13:17:00 0.65[facility] QuzwnroWIXTZEERBQXW1043-28-79 13:17:007[facility]annELECTROLYTES 2018-07-26 13:17:0078[facility] BpfoxktISREMXTWSK0602-67-49 13:17:0092.8[facility] FkqiszfUUTLRDAPAS6489-80-07 13:17:0041.8[facility] UgseigqMXNXPYBNSQ1816-47-29 13:17:99233Cilreaax SrqcmitMTNEFOGXVP9645-46-89 13:17:0013.4[facility] VSJKXJYNUB6740-13-00 13:17:0033.8[facility] OhhkjjlEHTDYCMQPQ4137-89-53 13:17:00* Test Item Value Reference Range Interpretation Comments MCH (test code = MCH) 31.4 pg 27.0-31.0 [facility] RsdcasrADSQBDULUU1208-83-26 13:17:008.3[facility] HermannHEMATOLOGY 2018-07-26 13:17:0014.1[facility] KedisqeQKMKWSQBDJ5157-16-29 13:17:005.6[facility] TebiauiWZPZCJXSQN4106-85-57 13:17:004.50[facility] GxpmecoAZTJZGFKRQ2199-86-29 13:17:0014.5[facility] AzlphclSGUPKEYHXE6350-88-02 13:17:000.8[facility] ANLPTGGFLB5147-92-48 13:17:001.9[facility] FttbdssKISQTDNJQO2062-37-54 13:17:000.8 [facility] CgxztnfKMJKZPOMTM4516-67-49 13:17:002.8[facility] HermannHEMATOLOGY 2018-07-26 13:17:001.9[facility] LlckdxxHPWBDEVSSN1464-09-17 13:17:000.1[facility] JdfsoctCMMYWOOKFP4109-67-71 13:17:0049.7[facility] LnalgerZXVAQHHPXT8186-33-60 13:17:0033.1[facility] HermannCHEM AFHKQ5456-81-90 04:05:69386Bctekkaw HermannCHEM NREML3219-32-53 04:05:0013.9[facility] HermannCHEM GYRUD9532-78-48 04:05:00* Test Item Value Reference Range Interpretation Comments B/C Ratio (test code = B/C Ratio) 8 1 6-25 [facility]annCHEM UEKAL2658-48-42 04:05:009.3[facility] HermannCHEM PANEL 2018-05-04 04:05:0086[facility] HermannCHEM DTXEG5817-56-77 04:05:006[facility] HermannCHEM AEZYG1696-84-06 04:05:54966Lnzktrwr HermannCHEM ILTZJ1121-64-57 04:05:0025[facility] HermannCHEM XPEMZ7642-82-17 04:05:78937Benvwtob HermannCHEM SVSNR5877-62-42 04:05:003.9[facility] HermannCHEM JWUUF7915-68-02 04:05:000.72 [facility]annCHEM MFBHR5634-39-68 04:05:0094[facility]annCHEM PANEL 2018-05-04 04:05:0030[facility] HermannCHEM JHSVB2590-52-36 04:05:0062[facility] HermannCHEM MGCUO4957-67-09 04:05:00* Test Item Value Reference Range Interpretation Comments A/G Ratio (test code = A/G Ratio) 1.1 1 0.7-1.6 [facility]annCHEM COPAM5691-43-86 04:05:000.3[facility] HermannCHEM PANEL 2018-05-04 04:05:003.8[facility] HermannCHEM ESIFH1975-83-44 04:05:004.1[facility] HermannCHEM SPCHW3526-20-76 04:05:007.9[facility] KspzsptZCGJRWQFVQONX7582-24-68 04:05:833417Yfyukzex DqoeoglHISNDUZAHO8266-87-71 04:05:0089.4[facility] [place] MXPJIXVDZX5155-58-83 04:05:0014.3[facility] QcvanpeBBXTKMLQNS0572-36-83 04:05:00 42.3[facility] UzvyuftPTIZYNBSOR7829-52-93 04:05:0014.2[facility]annHEMATOLOGY 2018-05-04 04:05:75313Torakucd BrbugchOQINUYULYU8967-19-61 04:05:0033.9[facility] XvjtkodJZPSRYGAJS5229-69-82 04:05:00* Test Item Value Reference Range Interpretation Comments MCH (test code = MCH) 30.3 pg 27.0-31.0 [facility] AzjpggpTXGTCEGMJF5532-19-16 04:05:007.7[facility]annHEMATOLOGY 2018-05-04 04:05:0010.4[facility] UrlzczpKZQIVCRFRF5916-43-43 04:05:004.73[facility]annURINE AND QFBUW2660-87-85 04:05:00None Seen (05/03/18 10:05 PM)[facility] AND FFEKW5590-37-07 04:05:00Performed (05/03/18 10:05 PM)[facility] DRGWX4039-81-55 04:05:000.2[facility] AND STOOL 2018-05-04 04:05:00Negative *NA*(05/03/18 10:05 PM)[facility] AND XCYKO6215-12-16 04:05:00Large *ABN*(05/03/18 10:05 PM)[facility] AND JBRCU1429-76-98 04:05:00Negative (05/03/18 10:05 PM)[facility] AND CCSPC6701-30-08 04:05:00* Test Item Value Reference Range Interpretation Comments UA pH (test code = UA pH) 8.0 1 5.0-8.0 [facility] AND UOVUS3312-75-60 04:05:00Negative (05/03/18 10:05 PM) [facility] EOODG9637-84-67 04:05:00Clear (05/03/18 10:05 PM) [facility] IJOLO5543-23-81 04:05:00<=1.005 *NA*(05/03/18 10:05 PM) [facility] UDIQZ5580-69-67 04:05:00Negative *NA*(05/03/18 10:05 PM)[facility] FSFZX0465-00-96 04:05:00Negative (05/03/18 10:05 PM) [facility] PHQZY5466-76-05 04:05:00Trace *ABN*(05/03/18 10:05 PM) [facility] AND WVKVL3002-59-47 04:05:00Yellow *NA*(05/03/18 10:05 PM) [facility] IRIL8142-31-83 04:05:00Positive *ABN*(05/03/18 10:05 PM) [facility]annDRUG BJEGDJ3202-22-95 17:05:00See Note (10/31/17 12:05 PM) [facility]annDRUG XQIKZG9090-50-90 17:05:00Negative *NA*(10/31/17 12:05 PM) [facility]annDR[facility] BGCPLO5906-73-45 17:05:00Negative *NA*(10/31/17 12:05 PM) [facility]annDR[facility] DSCLHL0054-39-91 17:05:00Negative *NA*(10/31/17 12:05 PM) [facility]annDR[facility] FPDRVN9455-92-40 17:05:00Negative *NA*(10/31/17 12:05 PM) [facility]annDR[facility] FGGJEU8465-81-53 17:05:00Negative *NA*(10/31/17 12:05 PM) [facility]annDR[facility] HUXFAZ9139-35-59 17:05:00Positive *ABN*(10/31/17 12:05 PM) [facility]annDR[facility] ERHUBX3531-31-16 17:05:00Negative *NA*(10/31/17 12:05 PM) [facility] AifurkfKIEMNYSJTP6094-27-68 15:24:85093Uhjcnspd HermannTOXICOLOGY 2017-10-31 15:24:000.206[facility] XesqugiDAFFIFJKHVUA9852-79-20 09:49:4728 [facility] JnawedoUQNOSJWZLPOI5381-64-72 09:49:477.9[facility] HermannELECTROLYTES 2017-10-31 09:49:11135Cfeybiwm TnmfxubYRFIQTUQFPRF1350-79-65 09:49:474.2[facility] TsoopyaKHQEDGGJUWZT5049-10-52 09:49:478.2[facility] BduysgxWPRJPLGNWGOB9115-02-44 09:49:470.62[facility] LpoldhhBLYSZDBFRLXR2462-49-24 09:49:473[facility] [place] SPDSFLANBLGW3750-49-23 09:49:4785[facility] LsjktlpZRQFRLWSBRML9741-75-80 09:49:47 146[facility] DfjapttLITDVTDVXGVK5649-52-09 09:49:4736[facility] HermannELECTROLYTES 2017-10-31 09:49:473.4[facility] XxizqisJBPGUZSVIFBP5345-52-74 09:49:470.3[facility] NzonqncWRFGAVVKBDZS9265-31-46 09:49:67103Gabefxxe RiitrpiDLQRCIONSLDC3253-03-91 09:49:4761[facility] BfpguiyPOGBYEEMOHNE2307-89-79 09:49:13480Ubdiaaxf [place] PDTCFWFGIHBO1152-86-33 09:49:474.8[facility] BkoavmyFAJOXDGYKOBI9000-77-64 09:49:47* Test Item Value Reference Range Interpretation Comments B/C Ratio (test code = B/C Ratio) 5 1 6-25 [facility] IesjujxNMZMTSYDEUHT6864-50-73 09:49:47* Test Item Value Reference Range Interpretation Comments A/G Ratio (test code = A/G Ratio) 0.7 1 0.7-1.6 [facility] OyxkghbWCXVUOQBXHMW0975-13-17 09:49:4715.2[facility] HermannHEMATOLOGY 2017-10-31 09:49:472.2[facility] DimlbvtZFTTACJPZC5360-45-98 09:49:471.1[facility] FfmsszvZWGSUVTHZF9990-41-54 09:49:470.4[facility] OnltegbTKOLPISOLX8906-96-28 09:49:470.1[facility] PktahgcIDGRKDBXPY3436-49-95 09:49:4729.3[facility] [place] TJDZJUHYAH2344-27-04 09:49:471.8[facility] CtkzrlhWSGVHSNSAF5653-72-51 09:49:47 10.3[facility] ResfpmzPBMNXGXMLC0301-20-51 09:49:470.9[facility] HermannHEMATOLOGY 2017-10-31 09:49:4757.7[facility] XapnliiBIDICOLPBA1467-16-08 09:49:4734.4[facility] RafeovqBGGMPBQQJJ9163-15-93 09:49:4786.8[facility] SqekqbbGIWLTBFACE8320-28-04 09:49:477.0[facility] AbvssiyHAAXUHDAXC2272-77-93 09:49:47* Test Item Value Reference Range Interpretation Comments MCH (test code = MCH) 28.5 pg 27.0-31.0 [facility] EmthexuJAKCYCQOCL8169-41-83 09:49:74608Lgehspmb HermannHEMATOLOGY 2017-10-31 09:49:4732.9[facility] NacnvhgDPKMWZASSZ9516-53-05 09:49:4718.4[facility] YxhtiepYSGCTIQRZJ5610-90-46 09:49:473.9[facility] OlkcgfcWSSPRFDKHQ6606-82-31 09:49:473.97[facility] SeaqgmsTYHGVGGCGP9669-08-27 09:49:4711.3[facility] [place] XUTYKWJLFL8159-33-33 09:49:47<2[facility] NodixpsODISIBFDZL5889-33-09 09:49:47 0.325[facility] MhlqoscPONTHYYVEP5927-90-63 09:49:01268Opolzpav HermannTOXICOLOGY 2017-10-31 09:49:473.3[facility] JdxkgdhKDUBTIUVAEUP6610-24-95 21:22:0024[facility] PidnpsnVKTNCDAGFSLQ8644-97-46 21:22:009.2[facility] GwcttzfUZQPDFOILMLI2388-69-65 21:22:19589Qnspytvu QjdzswaAUHCGIPMRCDK2836-72-89 21:22:004.0[facility] WPXEOWGMODZG8621-76-92 21:22:09270Vyxkewef OlwthdrUECBSGNQUSAV2080-40-56 21:22:000.76[facility] FhbrtjlUAKNNZJOFSSF1131-80-56 21:22:004[facility] [place] YGYLGVEIZEMN2526-67-24 21:22:16390Lkytvhqz OyrreosSAXMVUQGOFLX7880-06-23 21:22:45093Npwqedxl RqihharZSIDCRGHMUBC1841-65-20 21:22:0013.0[facility] TZOZWXNHJI3525-10-80 21:22:07190Zkheyuti QozgpvuRDDMKMCNYI6613-09-34 21:22:008.0 [facility] IbpnkibNBWPEAJWYS1743-43-71 21:22:009.7[facility] HermannHEMATOLOGY 2017-08-07 21:22:003.81[facility] PyclbgyQBUCFZRJSH0186-45-74 21:22:0032.6[facility] PkeinqpITMYMTHVMR5105-68-76 21:22:0015.2[facility] LjbahpzBVKTHVLNMH7749-97-72 21:22:0010.9[facility] KbfvtgzADUBWYZDOQ3918-24-17 21:22:0087.8[facility] DDIOGFBEDW2214-22-01 21:22:00* Test Item Value Reference Range Interpretation Comments MCH (test code = MCH) 28.6 pg 27.0-31.0 [facility] HjvhgqbMLXHIIZIRP8641-32-37 21:22:0033.4[facility] HermannHEMATOLOGY 2017-08-07 21:22:0064.9[facility] UsrqrhrNHHBOQXINL5680-90-22 21:22:001.4[facility] AfkxjwqFGUCDPMYYF0877-18-10 21:22:000.5[facility] CrfvytePCYOFQRSDD8045-37-20 21:22:006.3[facility] HtrvgziLADHONYROY5020-14-17 21:22:001.1[facility] XGVYSVHALA7072-60-52 21:22:001.9[facility] ZzxdtjnJZTSTVPMIH5566-24-55 21:22:000.1 [facility] JvrltfmOZNEVOVPGD1972-69-15 21:22:0019.3[facility] HermannHEMATOLOGY 2017-08-07 21:22:0014.2[facility] VffcpqfSWXANXMHQZ5979-72-42 21:22:000.1[facility]URINE AND IASZG7627-57-80 21:14:00Negative (08/07/17 4:14 PM)[facility] YDOWE9640-60-08 21:14:00* Test Item Value Reference Range Interpretation Comments UA pH (test code = UA pH) 6.0 1 5.0-8.0 [facility] GRNZC8630-54-18 21:14:00Negative *NA*(08/07/17 4:14 PM) [facility] YLQIV8907-47-20 21:14:00Negative *NA*(08/07/17 4:14 PM) [facility] ZNGUC2615-66-26 21:14:00Negative (08/07/17 4:14 PM) [facility] UJQHF9980-92-99 21:14:00Clear (08/07/17 4:14 PM)[facility] ICMUA4379-73-83 21:14:00Yellow *NA*(08/07/17 4:14 PM)[facility] AJYBD1517-24-14 21:14:00<=1.005 *NA*(08/07/17 4:14 PM)[facility] TFCZT2180-80-21 21:14:00Negative (08/07/17 4:14 PM)[facility] LPDNP5883-90-52 21:14:00Negative (08/07/17 4:14 PM)[facility] CACUN5704-28-83 21:14:00Moderate *ABN*(08/07/17 4:14 PM)[facility] PDADE4369-12-11 21:14:000.2[facility]annURINE KTZH4066-70-38 21:14:00Negative (08/07/17 4:14 PM)[facility] HermannEthyl Alcohol Arxps0383-79-90 23:16:00* Test Item Value Reference Range Interpretation Comments Ethyl Alcohol Level (test code = 5643-2) 246.1 0.0-10.0 [facility] HospitalCreatine Kinase KS5546-86-63 22:18:00* Test Item Value Reference Range Interpretation Comments Creatine Kinase MB (test code = 05131-4) 2.00 0-5.0 [facility] HospitalTroponin H0593-15-10 22:18:00* Test Item Value Reference Range Interpretation Comments Troponin I (test code = YXV9102) 0.001 0-0.300 [facility] Xugpk7878-11-05 22:11:00* Test Item Value Reference Range Interpretation Comments Sodium Level (test code = 2951-2) 143 136-145 [facility] HospitalPotassium Vnyti4211-24-74 22:11:00* Test Item Value Reference Range Interpretation Comments Potassium Level (test code = 2823-3) 3.8 3.5-5.1 [facility] HospitalChloride Qcchj5546-27-16 22:11:00* Test Item Value Reference Range Interpretation Comments Chloride Level (test code = 2075-0) 109 98-107 [facility] HospitalCarbon Dioxide Odumm8709-41-55 22:11:00* Test Item Value Reference Range Interpretation Comments Carbon Dioxide Level (test code = 2028-9) 22 -29 [facility] HospitalAnion Cku7988-90-14 22:11:00* Test Item Value Reference Range Interpretation Comments Anion Gap (test code = 59514-1) 15.8 8-16 [facility] HospitalBlood Urea Ojmucgbg9910-85-95 22:11:00* Test Item Value Reference Range Interpretation Comments Blood Urea Nitrogen (test code = 3094-0) 6 7-26 L [facility] HospitalCreatinine2018-04-14 22:11:00* Test Item Value Reference Range Interpretation Comments Creatinine (test code = 2160-0) 0.72 0.57-1.11 [facility] HospitalBUN/Creatinine Zorqa8754-63-93 22:11:00* Test Item Value Reference Range Interpretation Comments BUN/Creatinine Ratio (test code = 3097-3) 8 6-25 [facility] HospitalEstimat Glomerular Filtration Rate 2017-06-18 22:11:00* Test Item Value Reference Range Interpretation Comments Estimat Glomerular Filtration Rate (test code = 41246-7) 60- >60 Ranges were taken from the National Kidney Disease Education Program and the [facility] Foundation literature.Reference ranges:60 or greater: Hprmcr72-87 ( for 3 consecutive months): Chronic kidney disease 15 or less: Kidney failureEl Campo Memorial HospitalGlucose Wjgrk5089-09-21 22:11:00* Test Item Value Reference Range Interpretation Comments Glucose Level (test code = PFQ6454) 84 74-118 [facility] HospitalCalcium Utwao6299-28-98 22:11:00* Test Item Value Reference Range Interpretation Comments Calcium Level (test code = 42916-4) 9.2 8.4-10.2 [facility] HospitalTotal Ewqxawlkh9204-62-85 22:11:00* Test Item Value Reference Range Interpretation Comments Total Bilirubin (test code = 1975-2) 0.2 0.2-1.2 [facility] HospitalAspartate Amino Transf (AST/SGOT) 2017-06-18 22:11:00* Test Item Value Reference Range Interpretation Comments Aspartate Amino Transf (AST/SGOT) (test code = Aspartate Amino Transf (AST/SGOT)) 29 5-34 [facility] HospitalAlanine Aminotransferase (ALT/SGPT) 2017-06-18 22:11:00* Test Item Value Reference Range Interpretation Comments Alanine Aminotransferase (ALT/SGPT) (test code = 1742-6) 27 0-55 [facility] HospitalTotal Hkzkkwd4474-19-63 22:11:00* Test Item Value Reference Range Interpretation Comments Total Protein (test code = 2885-2) 8.1 6.5-8.1 [facility] HospitalAlbumin2018-04-14 22:11:00* Test Item Value Reference Range Interpretation Comments Albumin (test code = 1751-7) 4.1 3.5-5.0 [facility] HospitalGlobulin2018-04-14 22:11:00* Test Item Value Reference Range Interpretation Comments Globulin (test code = 65315-1) 4.0 2.3-3.5 H [facility] HospitalAlbumin/Globulin Jxgjd8772-39-93 22:11:00 * Test Item Value Reference Range Interpretation Comments Albumin/Globulin Ratio (test code = 1759-0) 1.0 0.8-2.0 [facility] HospitalAlkaline Xjvfmcksmak9270-37-00 22:11:00* Test Item Value Reference Range Interpretation Comments Alkaline Phosphatase (test code = 6768-6) 91 40-150 [facility] HospitalCreatine Vtxfcm8832-73-50 22:11:00* Test Item Value Reference Range Interpretation Comments Creatine Kinase (test code = 2157-6) 119 29-168 [facility] HospitalWhite Blood Jjnae6201-13-87 21:55:00* Test Item Value Reference Range Interpretation Comments White Blood Count (test code = 6690-2) 7.28 4.8-10.8 [facility] HospitalRed Blood Lzgwl4036-82-05 21:55:00* Test Item Value Reference Range Interpretation Comments Red Blood Count (test code = 789-8) 4.19 3.6-5.1 [facility] HospitalHemoglobin2018-04-14 21:55:00* Test Item Value Reference Range Interpretation Comments Hemoglobin (test code = 98376-1) 12.9 12.0-16.0 [facility] HospitalHematocrit2018-04-14 21:55:00* Test Item Value Reference Range Interpretation Comments Hematocrit (test code = 4544-3) 38.7 34.2-44.1 [facility] HospitalMean Corpuscular Vxombq1951-58-56 21:55:00* Test Item Value Reference Range Interpretation Comments Mean Corpuscular Volume (test code = 787-2) 92.4 81-99 [facility] HospitalMean Corpuscular Bgeadfdtas6638-81-34 21:55:00* Test Item Value Reference Range Interpretation Comments Mean Corpuscular Hemoglobin (test code = 785-6) 30.8 28-32 [facility] HospitalMean Corpuscular Hemoglobin Concent 2017-06-18 21:55:00* Test Item Value Reference Range Interpretation Comments Mean Corpuscular Hemoglobin Concent (test code = 786-4) 33.3 31-35 [facility] HospitalRed Cell Distribution Cqxsh5722-20-11 21:55:00* Test Item Value Reference Range Interpretation Comments Red Cell Distribution Width (test code = 92119-8) 12.0 11.7 -14.4 [facility] HospitalPlatelet Hqpch8548-72-95 21:55:00* Test Item Value Reference Range Interpretation Comments Platelet Count (test code = 777-3) 304 140-360 [facility] HospitalNeutrophils (%) (Auto)2017-06-18 21:55:00 * Test Item Value Reference Range Interpretation Comments Neutrophils (%) (Auto) (test code = 44265-1) 54.4 38.7-80.0 [facility] HospitalLymphocytes (%) (Auto)2017-06-18 21:55:00 * Test Item Value Reference Range Interpretation Comments Lymphocytes (%) (Auto) (test code = 736-9) 38.0 18.0-39.1 [facility] HospitalMonocytes (%) (Auto)2017-06-18 21:55:00* Test Item Value Reference Range Interpretation Comments Monocytes (%) (Auto) (test code = 5905-5) 4.4 4.4-11.3 [facility] HospitalEosinophils (%) (Auto)2017-06-18 21:55:00 * Test Item Value Reference Range Interpretation Comments Eosinophils (%) (Auto) (test code = 713-8) 2.6 0.0-6.0 [facility] HospitalBasophils (%) (Auto)2017-06-18 21:55:00* Test Item Value Reference Range Interpretation Comments Basophils (%) (Auto) (test code = 706-2) 0.5 0.0-1.0 [facility] HospitalIM GRANULOCYTES %2017-06-18 21:55:00* Test Item Value Reference Range Interpretation Comments IM GRANULOCYTES % (test code = IM GRANULOCYTES %) 0.1 0.0- 1.0 [facility] HospitalNeutrophils # (Auto)2017-06-18 21:55:00* Test Item Value Reference Range Interpretation Comments Neutrophils # (Auto) (test code = 751-8) 4.0 2.1-6.9 [facility] HospitalLymphocytes # (Auto)2017-06-18 21:55:00* Test Item Value Reference Range Interpretation Comments Lymphocytes # (Auto) (test code = 46853-8) 2.8 1.0-3.2 [facility] HospitalMonocytes # (Auto)2017-06-18 21:55:00* Test Item Value Reference Range Interpretation Comments Monocytes # (Auto) (test code = 742-7) 0.3 0.2-0.8 [facility] HospitalEosinophils # (Auto)2017-06-18 21:55:00* Test Item Value Reference Range Interpretation Comments Eosinophils # (Auto) (test code = 711-2) 0.2 0.0-0.4 [facility] HospitalBasophils # (Auto)2017-06-18 21:55:00* Test Item Value Reference Range Interpretation Comments Basophils # (Auto) (test code = 704-7) 0.0 0.0-0.1 [facility] HospitalAbsolute Immature Granulocyte (auto 2017-06-18 21:55:00* Test Item Value Reference Range Interpretation Comments Absolute Immature Granulocyte (auto (chelsi t code = Absolute Immature Granulocyte (auto) 0.01 0-0.1 [facility] HospitalMagnesium Ymsbm6588-66-38 22:48:00* Test Item Value Reference Range Interpretation Comments Magnesium Level (test code = 79708-6) 2.0 1.3-2.1 [facility] HospitalAcetaminophen Xknnl4371-61-93 22:48:00* Test Item Value Reference Range Interpretation Comments Acetaminophen Level (test code = 86080-1) 4 10-30 [facility]onalicyl[facility] Lofoz5474-60-59 22:48:00* Test Item Value Reference Range Interpretation Comments Salicylates Level (test code = 4024-6) -5.0 0-30 [facility] HospitalUrine RBL1619-23-69 22:39:00* Test Item Value Reference Range Interpretation Comments Urine WBC (test code = 5821-4) 0-5 0-5 [facility] HospitalUrine PTP7603-28-21 22:39:00* Test Item Value Reference Range Interpretation Comments Urine RBC (test code = 59648-6) 0-5 0-5 [facility] HospitalUrine Hktdkjro0668-38-72 22:39:00* Test Item Value Reference Range Interpretation Comments Urine Bacteria (test code = 54586-0) RARE NONE [facility] HospitalUrine Epithelial Drxoc3359-22-53 22:39:00 * Test Item Value Reference Range Interpretation Comments Urine Epithelial Cells (test code = 55742-6) RARE NONE [facility] HospitalProthrombin Ujuw2553-71-53 22:38:00* Test Item Value Reference Range Interpretation Comments Prothrombin Time (test code = 5902-2) 13.8 11.9-14.5 [facility] HospitalProthromb Time International Ratio 2017-01-10 22:38:00* Test Item Value Reference Range Interpretation Comments Prothromb Time International Ratio (test code = 6301-6) 1.01 Oral Anticoagulant Therapy INR Values:1. Low Intensity Therapy 1.5 - 2.02 . Moderate Intensity Therapy 2.0 - 3.03. High Intensity Therapy(1) 2.5 - 3. 54. High Intensity Therapy(2) 3.0 - 4.05. Panic Value INR > 5.0 [facility] HospitalActivated Partial Thromboplast Time 2017-01-10 22:38:00* Test Item Value Reference Range Interpretation Comments Activated Partial Thromboplast Time (test code = 77887-3) 30.9 23.8-35.5 [facility] HospitalUrine Opiates Tyxrvg9603-60-50 22:31:00* Test Item Value Reference Range Interpretation Comments Urine Opiates Screen (test code = 50826-2) POSITIVE NEGATIVE H ALL TESTS PERFORMED MANUALLY ON SIGNIFY ER TESTThis test provides only a screen. Positive results should be repeated by a confirmatory test.[facility] Bar[facility] [id number] 22:31:00* Test Item Value Reference Range Interpretation Comments Urine Barbiturates Screen (test code = 082988585) NEGATIVE NEGA TIVE [facility] Phencyclidine [id number] 22:31:00* Test Item Value Reference Range Interpretation Comments Urine Phencyclidine Screen (test code = 50331-4) NEGATIVE NEGAT BEULAH [facility] Amphetamines [id number] 22:31:00* Test Item Value Reference Range Interpretation Comments Urine Amphetamines Screen (test code = 86008-6) NEGATIVE NEGATI VE [facility] Benzodiazep[facility] [id number] 22:31:00* Test Item Value Reference Range Interpretation Comments Urine Benzodiazepines Screen (test code = 22721-1) POSITIVE NEG ATIVE H This test provides only a screen. Positive results should be repeated by a confi rmatory test.[facility] Cocaine [facility] 2017-01-10 22:31:00* Test Item Value Reference Range Interpretation Comments Urine Cocaine Screen (test code = Urine Cocaine Screen) NEGATIVE NEGATIVE [facility] Cannabinoids [id number] 22:31:00* Test Item Value Reference Range Interpretation Comments Urine Cannabinoids Screen (test code = 62344-9) NEGATIVE NEGATI VE THESE RESULTS ARE FOR MEDICAL TREATMENT ONLYTHIS REPORT CONTAINS UNCONFIR MED SCREENING RESULTS*POSITIVE RESULTS WILL BE CONFIRMED BY REFERENCE LAB UPON R EQUEST CUT-OFFDRUG CLASS CONCENTRATION ng/mLAmphetamines 1000Methamphetamines 1000Cocaine 300Opiate 300Phencyc lidine 25Cannabinoid 50Barbiturates 300Benzodiazepine 300Methadone 300[facility] [id number] 22:30:00* Test Item Value Reference Range Interpretation Comments Urine Test (test code = 2106-3) NEGATIVE NEGATIVE [facility] [id number] 22:29:00* Test Item Value Reference Range Interpretation Comments Urine Color (test code = 5778-6) STRAW YELLOW [facility] [id number] 22:29:00* Test Item Value Reference Range Interpretation Comments Urine Clarity (test code = 38085-5) CLEAR CLEAR [facility] Specific [id number] 22:29:00 * Test Item Value Reference Range Interpretation Comments Urine Specific [place] (test code = 5811-5) 1.010 1.010-1.02 5 [facility] [id number] 22:29:00* Test Item Value Reference Range Interpretation Comments Urine pH (test code = 51574-1) 5 5-7 [facility] Leukocyte [id number] 22:29:00* Test Item Value Reference Range Interpretation Comments Urine Leukocyte Esterase (test code = 5799-2) NEGATIVE NEGATIVE [facility] [id number] 22:29:00* Test Item Value Reference Range Interpretation Comments Urine Nitrite (test code = 13475-2) NEGATIVE NEGATIVE [facility] [id number] 22:29:00* Test Item Value Reference Range Interpretation Comments Urine Protein (test code = 5804-0) [facility]GATIVE [facility]GATIVE [facility] 22:29:00* Test Item Value Reference Range Interpretation Comments Urine Glucose (UA) (test code = 2349-9) NEGATIVE [facility]GATIVE [facility] Scwnvah3003-19-36 22:29:00* Test Item Value Reference Range Interpretation Comments Urine Ketones (test code = 80905-4) NEGATIVE NEGATIVE [facility] Cklvjqokunjm3729-04-33 22:29:00* Test Item Value Reference Range Interpretation Comments Urine Urobilinogen (test code = 07264-6) 0.2 0.2-1 [facility] Gxedjpjxx4197-00-10 22:29:00* Test Item Value Reference Range Interpretation Comments Urine Bilirubin (test code = 1978-6) NEGATIVE NEGATIVE [facility] Umqzh1933-04-94 22:29:00* Test Item Value Reference Range Interpretation Comments Urine Blood (test code = 89138-0) NEGATIVE NEGATIVE [facility] SINGLE (PORTABLE) [place] [address] Patient Name: MANDY ASCENCIO MR #: [id number] : 1985 Age/Sex: 31/F Req #: [id number] Adm Physician: Ordered by: SHAKA MACK MD Report #: [id number] Location: ER Room/ Bed: Procedure: [id number] DX/CHEST SINGLE (PORTABLE) Exam Date: 06/18/17 Exam [...] TO: SHAKA MACK MD CT BRAIN WO [place] [address] Patient Name: MANDY ASCENCIO MR #: [id number] : 1985 Age/Sex: 31/F Req #: [id number] Adm Physician: Ordered by: JENN MCKEON MD Report #: [id number] Location: ER Room/Bed: Procedure: [id number] CT/CT BRAIN WO Exam Date: Exam Time: [...] No abnormal densities. No masses, hemorrhage, ac beaver or chronic vascular insults. Sellar/suprasellar region: No abnormalitie s. Craniocervical junction: Patent foramen magnum. No Chiari one malformation. Incidental findings: None. Impression: No intracranial abnor malities. Signed by: Dr. Linsey Jane M.D. on 01/10/2017 11:08 PM Dictated By: LINSEY MCNEILL MD 07 Transcribed By: AGNIESZKA on 01/10/172307 COPY TO: JENN MCKEON MD CHEST SINGLE (PORTABLE) [place] [address] Patient Name: MANDY ASCENCIO MR #: [id number] : 1985 Age/Sex: 31/F Req #: [id number] Adm Physician: Ordered by: JENN MCKEON MD Report #: [id number] Location: ER Room/Bed: Procedure: [id number] DX/CHEST SINGLE (PORTABLE) Exam D ate: Exam [...] ed By: MARTIR JOHNSON MD on 01/10/17 569 Transcribed By: AGNIESZKA on 08/21 8320 COPY TO: JENN MCKEON MD
--- OUTSIDE RECORDS SUMMARY | 2019-11-23 10:41 | XMS REPORT | Clinical Summary ---
Author Author [facility] ict Organization [facility] ict Address Unknown Phone Unavailable Care Team Providers Care Java Analyst Name Role Phone Rahul Yang MD PCP [...] daily. Active Take by 90 tablet 3 Orfaezly-Pz-Vnu-Fe-FA mouth. 9 () TabIndications: Seizure disorder during [...] 73 (L) 74 - 106 mg/dL [facility] Specimen Blood Performing Organization Address City/[facility] [place] one Number [facility] [address] [place] [address] [phone] * XRAY CHEST 1 VIEW (09/06/2019 2:35 [...] MD, 09/06/2019 3:33 PM Performing Organization Address City/[facility] Ph one Number SMS * Coronavirus, CoVID-19, GIULIANA (09/06/2019 8:26 AM CDT) COVID-19 Not DetectedComment: Not Detected [facility] (SARS-COV-2) INTERPRETATION: No detectable LABORAT [...] - Nasopharynx Narrative Performed At COMMENT: This [facility] Xpert Xpress SARS -CoV-2 real-time PCR test was developed, [facility] and its performance characteristics det ermined by the [facility] molecular diagnostic Laboratory and is acceptable for patient testing. It has been approved for patient testing by [facility] under the Emergency Use Authorization pathway. This laboratory is certified under federal CLIA regulations to perform this type of hig h complexity testing. Performing Organization Address [facility] one Number [facility] [address] [place] [address] * POCT BMP POC docked device (09/06/2019 1:51 AM CDT) Only the most recent of 2 results within the time period is included. Pathologist [facility] Sodium POC 144 136 - 145 mmol/L [facility] Potassium POC 3.5 3.5 - 5.1 mmol/L [facility] Chloride POC 106 98 - 107 mmol/L [facility] TCO2 POC 27Comment: [...] Blood, venous Performing Organization Address [facility] Ph one Number [facility] [address] [place] [address] [phone] LABORATORY * CT MAXILLOFACIAL W/O CONTRAST (09/06/2019 1:06 AM CDT) Specimen Impressions Performed At IMPRESSION: [facility] Head CT: No intracranial abnormalities. Maxillofacial CT: [...] trauma, fx suspected Na andrew pain (accession [id number]), Seizure (accession [id number]) Comparison studies: Maxillofacial CTs dated 01/01/2018 and [...] Facial trauma, fx suspected Nasal pain (accession [id number]), Seizure (accession [id number]) Comparison studies: Maxillofacial CTs dated 01/01/2018 and [...] AM CDT) Specimen Impressions Performed At IMPRESSION: [facility] Head CT: No intracranial abnormalities. Maxillofacial CT: [...] trauma, fx suspected Na andrew pain (accession [id number]), Seizure (accession [id number]) Comparison studies: Maxillofacial CTs dated 01/01/2018 and [...] Facial trauma, fx suspected Nasal pain (accession [id number]), Seizure (accession [id number]) Comparison studies: Maxillofacial CTs dated 01/01/2018 and [...] 0.34 0.24 - 0.36 K/uL [facility] Eos (Absolute) 0.08 0.04 - 0.36 K/uL [facility] Baso (Absolute) 0.07 0.01 - 0.08 K/uL [facility] Immature Grans 0.02 0.00 - 0.03 K/uL [facility] (Abs) [facility] Absolute NRBC 0.00 K/uL [facility] Specimen Blood Performing Organization Address [facility] one Number [facility] [address] [place] [address] * Comprehensive Metab Pnl(Excludes DBIL) (09/05/2019 11:53 [...] Specimen Blood Performing Organization Address [facility] one Number [facility] [address] [place] [address] [phone] * Lamotrigine (Lamictal), Serum (09/05/2019 11:53 PM CDT) Lamotrigine, 4.4 2.0 - 20.0 ug/mL [facility] Serum Comment: This test was developed and its performance characteristics determined by [facility]. It has not been cleared or approved by the Food and Drug Administration. Detection Limit = 1.0 Specimen Blood Narrative Performed At Performed at: [facility] [address] [place] [phone] Public Health Physician: Abner Osullivan MD, Phone : [phone] Performing Organization Address [facility] one Number [facility] [address] [place] [address] * Salicylate (09/05/2019 11:53 PM CDT) Salicylate <2.5 (L) 2.8 - 30 mg/dL [facility] Specimen Blood Performing Organization Address [facility] one Number [facility] [address] [place] [address] * Lipase (09/05/2019 11:53 PM CDT) Lipase 40 11 - 82 U/L [facility] Specimen Blood Performing Organization Address [facility] one Number [facility] [address] [place] [address] * Alcohol (09/05/2019 11:53 PM CDT) ALCOHOL, SERUM 0.35 (HH) <0.10 g/dL [facility] - RESULT (BKR) [facility] Specimen Blood Performing Organization Address [facility] one Number [facility] [address] [place] [address] [phone] * Acetaminophen (09/05/2019 11:53 PM CDT) Acetaminophen <10.00 (L) 10.00 - 30.00 ug/mL [facility] Comment: [facility]OR[facility]ORY Please refer to acetaminophen nomogram. Specimen Blood Performing Organization Address [facility] one Number [facility] [address] [place] [address] * Urine Drug Screen (09/05/2019 11:43 PM [...] Urine - Voided, urine Performing Organization Address [facility] one Number [facility] [address] [place] [address] [phone] * Test (09/05/2019 11:43 PM CDT) Negative Negative [facility] Specimen Urine Performing Organization Address [facility] one Number [facility] [address] [place] [address] [phone] after 11/21/2018 Insurance Type Payer Benefit Subscriber ID Effective Phone Address Plan / Dates Group [facility] SELF-PAY SELF-PAY xxxxxxxxx 2019- [phone] [address] [place] [address] Advance Directives Date Inactivated Comments Code Status Date Activated 10/29/2015 1:06 PM Full Code 10/25/2015 11:50 PM 08/09/2014 5:07 PM Full Code 08/07/2014 2:34 AM
--- OUTSIDE RECORDS SUMMARY | 2019-11-23 10:42 | XMS REPORT | Continuity of Care Document ---
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 Yellow 12/09/2018 [facility] URINE AND STOOL UA Turbidity Clear (12/09/18 1:12 AM) Clear 12/09/2018 [facility] URINE AND STOOL UA Spec Grav 1.002 <=1.030 12/09/2018 [facility] URINE AND STOOL UA pH 7.0 5.0 - 8.0 12/09/2018 [facility] URINE AND STOOL UA Protein Negative mg/dL Negative mg/dL 12/09/2018 [facility] URINE AND STOOL UA Glucose Negative mg/dL Negative mg/dL 12/09/2018 [facility] URINE AND STOOL UA Bili Negative *NA* (12/09/18 1:12 AM) Negative 12/09/2018 [facility] URINE AND STOOL UA Blood Negative (12/09/18 1:12 AM) Negative 12/09/2018 [facility] URINE AND STOOL UA Nitrite Negative (12/09/18 1:12 AM) Negative 12/09/2018 [facility] URINE AND STOOL UA Leuk Est Negative (12/09/18 1:12 AM) Negative 12/09/2018 [facility] URINE AND STOOL UA Sq Epi Occasional /LPF Few /LPF 12/09/2018 [facility] URINE AND STOOL UA Ketones Negative 12/09/2018 [facility] URINE AND STOOL UA Urobilinogen <=1.0 mg/dL 0.1 - 1.0 12/09/2018 [facility] URINE AND STOOL UA Color Light Yellow *NA* (12/05/18 3:52 PM) Yellow 12/05/2018 [facility] URINE AND STOOL UA Turbidity Clear (12/05/18 3:52 PM) Clear 12/05/2018 [facility] URINE AND STOOL UA Spec Grav 1.008 <=1.030 12/05/2018 [facility] URINE AND STOOL UA pH 6.0 5.0 - 8.0 12/05/2018 [facility] URINE AND STOOL UA Protein Negative mg/dL Negative mg/dL 12/05/2018 [facility] URINE AND STOOL UA Glucose Negative mg/dL Negative mg/dL 12/05/2018 [facility] URINE AND STOOL UA Bili Negative *NA* (12/05/18 3:52 PM) Negative 12/05/2018 [facility] URINE AND STOOL UA Blood Negative (12/05/18 3:52 PM) Negative 12/05/2018 [facility] URINE AND STOOL UA Nitrite Negative (12/05/18 3:52 PM) Negative 12/05/2018 [facility] URINE AND STOOL UA Leuk Est Negative (12/05/18 3:52 PM) Negative 12/05/2018 [facility] URINE AND STOOL Micro? Not Indicated *NA* (12/05/18 3:52 PM) 12/05/2018 [facility] URINE AND STOOL UA Ketones Negative 12/05/2018 [facility] URINE AND STOOL UA Urobilinogen <=1.0 mg/dL 0.1 - 1.0 12/05/2018 [facility] DRUG SCREEN U Amph Scr Nega tive *NA* (12/05/18 11:30 AM) Negative 12/05/2018 [facility] DRUG SCREEN U Buffy Scr Nega tive *NA* (12/05/18 11:30 AM) Negative 12/05/2018 [facility] DRUG SCREEN U Benzodiaz Scr Nega tive *NA* (12/05/18 11:30 AM) Negative 12/05/2018 [facility] DRUG SCREEN U Cocaine Scr Nega tive *NA* (12/05/18 11:30 AM) Negative 12/05/2018 [facility] DRUG SCREEN U Cannab Scr Nega tive *NA* (12/05/18 11:30 AM) Negative 12/05/2018 [facility] DRUG SCREEN U Opiate Scr Nega tive *NA* (12/05/18 11:30 AM) Negative 12/05/2018 [facility] DRUG SCREEN U Phencyclidine Scr Nega tive *NA* (12/05/18 11:30 AM) Negative 12/05/2018 [facility] DRUG SCREEN UDS Note See Note (12/05/18 11:30 AM) 12/05/2018 [facility] CHEM PANEL Glucose Lvl 86 70 - 99 12/05/2018 [facility] CHEM PANEL BUN 3 7 - 22 12/05/2018 [facility] CHEM PANEL Creatinine Lvl 0.60 0.50 - 1.40 12/05/2018 [facility] CHEM PANEL Sodium Lvl 143 135 - 145 12/05/2018 [facility] CHEM PANEL Potassium Lvl 3.6 3.5 - 5.1 12/05/2018 [facility] CHEM PANEL Chloride Lvl 107 95 - 109 12/05/2018 [facility] CHEM PANEL CO2 27 24 - 32 12/05/2018 [facility] CHEM PANEL Calcium Lvl 9.3 8.5 - 10.5 12/05/2018 [facility] CHEM PANEL Total Protein 8.2 6.4 - 8.4 12/05/2018 [facility] CHEM PANEL Albumin Lvl 4.0 3.5 - 5.0 12/05/2018 [facility] CHEM PANEL ALT 33 0 - 65 12/05/2018 [facility] CHEM PANEL AST 28 0 - 37 12/05/2018 [facility] CHEM PANEL Alk Phos 138 39 - 136 12/05/2018 [facility] CHEM PANEL Bili Total 0.4 0.2 - 1.3 12/05/2018 [facility] CHEM PANEL eGFR 122 12/05/2018 Result Comment: [...] should be multiplied by the estimated BMI. [facility] CHEM PANEL AGAP 12.6 10.0 - 20.0 12/05/2018 [facility] CHEM PANEL B/C Ratio 5 6 - 25 12/05/2018 [facility] CHEM PANEL Globulin 4.2 2.7 - 4.2 12/05/2018 [facility] CHEM PANEL A/G Ratio 1.0 0.7 - 1.6 12/05/2018 [facility] ENDOCRINOLOGY S Preg Ne gative *NA* (12/05/18 10:08 AM) Negative 12/05/2018 [facility] HEMATOLOGY WBC 7.8 3.7 - 10.4 12/05/2018 [facility] HEMATOLOGY RBC 4.26 4.20 - 5.40 12/05/2018 [facility] HEMATOLOGY Hgb 13.6 12.0 - 16.0 12/05/2018 [facility] HEMATOLOGY Hct 40.2 36.0 - 48.0 12/05/2018 [facility] HEMATOLOGY MCV 94.3 80.0 - 98.0 12/05/2018 [facility] HEMATOLOGY MCH 31.8 27.0 - 31.0 12/05/2018 [facility] HEMATOLOGY MCHC 33.8 32.0 - 36.0 12/05/2018 [facility] HEMATOLOGY RDW 15.5 11.5 - 14.5 12/05/2018 [facility] HEMATOLOGY Platelet 392 133 - 450 12/05/2018 [facility] HEMATOLOGY MPV 6.5 7.4 - 10.4 12/05/2018 [facility] HEMATOLOGY Segs 65.7 45.0 - 75.0 12/05/2018 [facility] HEMATOLOGY Lymphocytes 30.3 20.0 - 40.0 12/05/2018 [facility] HEMATOLOGY Monocytes 2.9 2.0 - 12.0 12/05/2018 [facility] HEMATOLOGY Eosinophils 0.3 0.0 - 4.0 12/05/2018 [facility] HEMATOLOGY Basophils 0.8 0.0 - 1.0 12/05/2018 [facility] HEMATOLOGY Neutrophils # 5.1 1.5 - 8.1 12/05/2018 [facility] HEMATOLOGY Lymphocytes # 2.4 1.0 - 5.5 12/05/2018 [facility] HEMATOLOGY Monocytes # 0.2 0.0 - 0.8 12/05/2018 [facility] HEMATOLOGY Basophils # 0.1 0.0 - 0.2 12/05/2018 [facility] TOXICOLOGY Acetaminoph Lvl <2 (12/05/18 10:08 AM) 10 - 20 12/05/2018 [facility] TOXICOLOGY Ethanol Lvl 359 12/05/2018 Result Comment: Critical Result(s) called to Sara Burgos at 12/05/2018 10:40 by KGF. Read back OK. [facility] TOXICOLOGY Etoh (%) 0.359 12/05/2018 Result Comment: Critical Result(s) called to Sara Burgos at 12/05/2018 10:40 by KGF. Read back OK. [facility] TOXICOLOGY Salicylate Lvl 3.9 0.0 - 30.0 12/05/2018 [facility] TOXICOLOGY Ethanol Lvl 377 10/18/2018 Result Comment: Critical Result(s) called to Lisha CRANE at 10/18/2018 04:50 by . Read back OK. [facility] TOXICOLOGY Etoh (%) 0.377 10/18/2018 [facility] CHEM PANEL Glucose Lvl 72 70 - 99 10/18/2018 [facility] CHEM PANEL BUN 5 7 - 22 10/18/2018 [facility] CHEM PANEL Creatinine Lvl 0.67 0.50 - 1.40 10/18/2018 [facility] CHEM PANEL Sodium Lvl 147 135 - 145 10/18/2018 [facility] CHEM PANEL Potassium Lvl 3.3 3.5 - 5.1 10/18/2018 [facility] CHEM PANEL Chloride Lvl 111 95 - 109 10/18/2018 [facility] CHEM PANEL CO2 26 24 - 32 10/18/2018 [facility] CHEM PANEL Calcium Lvl 8.4 8.5 - 10.5 10/18/2018 [facility] CHEM PANEL eGFR 117 10/18/2018 Result Comment: [...] be multiplied by the estimated BMI. [facility] CHEM PANEL AGAP 13.3 10.0 - 20.0 10/18/2018 [facility] ENDOCRINOLOGY S Preg Ne gative *NA* (10/18/18 1:40 AM) Negative 10/18/2018 [facility] HEMATOLOGY WBC 4.2 3.7 - 10.4 10/18/2018 [facility] HEMATOLOGY RBC 4.38 4.20 - 5.40 10/18/2018 [facility] HEMATOLOGY Hgb 14.0 12.0 - 16.0 10/18/2018 [facility] HEMATOLOGY Hct 42.1 36.0 - 48.0 10/18/2018 [facility] HEMATOLOGY MCV 96.0 80.0 - 98.0 10/18/2018 [facility] HEMATOLOGY MCH 32.0 27.0 - 31.0 10/18/2018 [facility] HEMATOLOGY MCHC 33.4 32.0 - 36.0 10/18/2018 [facility] HEMATOLOGY RDW 15.6 11.5 - 14.5 10/18/2018 [facility] HEMATOLOGY Platelet 187 133 - 450 10/18/2018 [facility] HEMATOLOGY MPV 7.8 7.4 - 10.4 10/18/2018 [facility] HEMATOLOGY Segs 40.6 45.0 - 75.0 10/18/2018 [facility] HEMATOLOGY Lymphocytes 44.7 20.0 - 40.0 10/18/2018 [facility] HEMATOLOGY Monocytes 12.4 2.0 - 12.0 10/18/2018 [facility] HEMATOLOGY Eosinophils 1.3 0.0 - 4.0 10/18/2018 [facility] HEMATOLOGY Basophils 1.0 0.0 - 1.0 10/18/2018 [facility] HEMATOLOGY Neutrophils # 1.7 1.5 - 8.1 10/18/2018 [facility] HEMATOLOGY Lymphocytes # 1.9 1.0 - 5.5 10/18/2018 [facility] HEMATOLOGY Monocytes # 0.5 0.0 - 0.8 10/18/2018 [facility] HEMATOLOGY Eosinophils # 0.1 0.0 - 0.5 10/18/2018 [facility] URINE AND STOOL UA Urobilinogen <=1.0 mg/dL 0.1 - 1.0 09/25/2018 [facility] URINE AND STOOL UA Ketones Negative 09/25/2018 [facility] URINE AND STOOL UA Color LYYELLOW 09/25/2018 [facility] URINE AND STOOL UA WBC <1 0 - 5 09/25/2018 [facility] URINE AND STOOL UA RBC <1 0 - 2 09/25/2018 [facility] URINE AND STOOL UA Bili Negative *NA* (09/24/18 11:27 PM) Negative 09/25/2018 [facility] URINE AND STOOL UA Glucose Negative mg/dL Negative mg/dL 09/25/2018 [facility] URINE AND STOOL UA Sq Epi Occasional /LPF Few /LPF 09/25/2018 [facility] URINE AND STOOL UA Leuk Est Negative (09/24/18 11:27 PM) Negative 09/25/2018 [facility] URINE AND STOOL UA Nitrite Negative (09/24/18 11:27 PM) Negative 09/25/2018 [facility] URINE AND STOOL UA Blood Negative (09/24/18 11:27 PM) Negative 09/25/2018 [facility] URINE AND STOOL UA Protein Negative mg/dL Negative mg/dL 09/25/2018 [facility] URINE AND STOOL UA pH 6.0 5.0 - 8.0 09/25/2018 [facility] URINE AND STOOL UA Spec Grav 1.003 <=1.030 09/25/2018 [facility] URINE AND STOOL UA Turbidity Clear (09/24/18 11:27 PM) Clear 09/25/2018 [facility] URINE CHEM U Preg Negat jaime (09/24/18 11:27 PM) Negative 09/25/2018 [facility] ELECTROLYTES AGAP 12.2 10.0 - 20.0 09/25/2018 [facility] ELECTROLYTES B/C Ratio 7 6 - 25 09/25/2018 [facility] ELECTROLYTES A/G Ratio 1.1 0.7 - 1.6 09/25/2018 [facility] ELECTROLYTES Globulin 3.8 2.7 - 4.2 09/25/2018 [facility] ELECTROLYTES eGFR 123 09/25/2018 Result [...] be multiplied by the estimated BMI. [facility] ELECTROLYTES AST 106 0 - 37 09/25/2018 [facility] ELECTROLYTES Bili Total 0.2 0.2 - 1.3 09/25/2018 [facility] ELECTROLYTES Alk Phos 141 39 - 136 09/25/2018 [facility] ELECTROLYTES Chloride Lvl 113 95 - 109 09/25/2018 [facility] ELECTROLYTES Calcium Lvl 8.7 8.5 - 10.5 09/25/2018 [facility] ELECTROLYTES CO2 25 24 - 32 09/25/2018 [facility] ELECTROLYTES ALT 98 0 - 65 09/25/2018 [facility] ELECTROLYTES Albumin Lvl 4.0 3.5 - 5.0 09/25/2018 [facility] ELECTROLYTES Total Protein 7.8 6.4 - 8.4 09/25/2018 [facility] ELECTROLYTES BUN 4 7 - 22 09/25/2018 [facility] ELECTROLYTES Potassium Lvl 4.2 3.5 - 5.1 09/25/2018 [facility] ELECTROLYTES Sodium Lvl 146 135 - 145 09/25/2018 [facility] ELECTROLYTES Creatinine Lvl 0.5 9 0.50 - 1.40 09/25/2018 [facility] ELECTROLYTES Glucose Lvl 77 70 - 99 09/25/2018 [facility] HEMATOLOGY Neutrophils # 2.2 1.5 - 8.1 09/25/2018 [facility] HEMATOLOGY Monocytes # 0.4 0.0 - 0.8 09/25/2018 [facility] HEMATOLOGY Basophils 0.2 0.0 - 1.0 09/25/2018 [facility] HEMATOLOGY Monocytes 9.2 2.0 - 12.0 09/25/2018 [facility] HEMATOLOGY Eosinophils 1.8 0.0 - 4.0 09/25/2018 [facility] HEMATOLOGY Segs 47.8 45.0 - 75.0 09/25/2018 [facility] HEMATOLOGY Lymphocytes 41.0 20.0 - 40.0 09/25/2018 [facility] HEMATOLOGY Eosinophils # 0.1 0.0 - 0.5 09/25/2018 [facility] HEMATOLOGY Lymphocytes # 1.9 1.0 - 5.5 09/25/2018 [facility] HEMATOLOGY MPV 7.6 7.4 - 10.4 09/25/2018 [facility] HEMATOLOGY MCHC 33.6 32.0 - 36.0 09/25/2018 [facility] HEMATOLOGY MCH 31.8 27.0 - 31.0 09/25/2018 [facility] HEMATOLOGY Hct 43.5 36.0 - 48.0 09/25/2018 [facility] HEMATOLOGY Hgb 14.6 12.0 - 16.0 09/25/2018 [facility] HEMATOLOGY MCV 94.6 80.0 - 98.0 09/25/2018 [facility] HEMATOLOGY RDW 15.1 11.5 - 14.5 09/25/2018 [facility] HEMATOLOGY Platelet 241 133 - 450 09/25/2018 [facility] HEMATOLOGY WBC 4.6 3.7 - 10.4 09/25/2018 [facility] HEMATOLOGY RBC 4.60 4.20 - 5.40 09/25/2018 [facility] CHEM PANEL eGFR 120 09/09/2018 Result Comment: [...] should be multiplied by the estimated BMI. [facility] CHEM PANEL CO2 30 24 - 32 09/09/2018 [facility] CHEM PANEL Chloride Lvl 110 95 - 109 09/09/2018 [facility] CHEM PANEL Potassium Lvl 3.7 3.5 - 5.1 09/09/2018 [facility] CHEM PANEL Calcium Lvl 8.3 8.5 - 10.5 09/09/2018 [facility] CHEM PANEL Sodium Lvl 145 135 - 145 09/09/2018 [facility] CHEM PANEL Creatinine Lvl 0.64 0.50 - 1.40 09/09/2018 [facility] CHEM PANEL BUN 3 7 - 22 09/09/2018 [facility] CHEM PANEL Glucose Lvl 77 70 - 99 09/09/2018 [facility] CHEM PANEL AGAP 8.7 10.0 - 20.0 09/09/2018 [facility] DRUG SCREEN U Cocaine Scr Nega tive *NA* (09/09/18 2:42 AM) Negative 09/09/2018 [facility] DRUG SCREEN UDS Note See Note (09/09/18 2:42 AM) 09/09/2018 [facility] DRUG SCREEN U Phencyclidine Scr Nega tive *NA* (09/09/18 2:42 AM) Negative 09/09/2018 [facility] DRUG SCREEN U Opiate Scr Nega tive *NA* (09/09/18 2:42 AM) Negative 09/09/2018 [facility] DRUG SCREEN U Cannab Scr Nega tive *NA* (09/09/18 2:42 AM) Negative 09/09/2018 [facility] DRUG SCREEN U Amph Scr Nega tive *NA* (09/09/18 2:42 AM) Negative 09/09/2018 [facility] DRUG SCREEN U Buffy Scr Nega tive *NA* (09/09/18 2:42 AM) Negative 09/09/2018 [facility] DRUG SCREEN U Benzodiaz Scr Posi tive *ABN* (09/09/18 2:42 AM) Negative 09/09/2018 [facility] ENDOCRINOLOGY S Preg Ne gative *NA* (09/09/18 2:42 AM) Negative 09/09/2018 [facility] HEMATOLOGY Monocytes 11.7 2.0 - 12.0 09/09/2018 [facility] HEMATOLOGY Lymphocytes 58.0 20.0 - 40.0 09/09/2018 [facility] HEMATOLOGY Basophils 1.3 0.0 - 1.0 09/09/2018 [facility] HEMATOLOGY Eosinophils 2.1 0.0 - 4.0 09/09/2018 [facility] HEMATOLOGY Lymphocytes # 2.1 1.0 - 5.5 09/09/2018 [facility] HEMATOLOGY Eosinophils # 0.1 0.0 - 0.5 09/09/2018 [facility] HEMATOLOGY Monocytes # 0.4 0.0 - 0.8 09/09/2018 [facility] HEMATOLOGY Segs 26.9 45.0 - 75.0 09/09/2018 [facility] HEMATOLOGY Neutrophils # 1.0 1.5 - 8.1 09/09/2018 [facility] HEMATOLOGY MPV 7.8 7.4 - 10.4 09/09/2018 [facility] HEMATOLOGY Platelet 141 133 - 450 09/09/2018 [facility] HEMATOLOGY RDW 14.8 11.5 - 14.5 09/09/2018 [facility] HEMATOLOGY MCV 94.8 80.0 - 98.0 09/09/2018 [facility] HEMATOLOGY MCH 31.4 27.0 - 31.0 09/09/2018 [facility] HEMATOLOGY MCHC 33.1 32.0 - 36.0 09/09/2018 [facility] HEMATOLOGY Hgb 14.5 12.0 - 16.0 09/09/2018 [facility] HEMATOLOGY Hct 43.8 36.0 - 48.0 09/09/2018 [facility] HEMATOLOGY RBC 4.62 4.20 - 5.40 09/09/2018 [facility] HEMATOLOGY WBC 3.7 3.7 - 10.4 09/09/2018 [facility] TOXICOLOGY Ethanol Lvl 345 09/09/2018 Result Comment: Critical Result(s) called to PAULA Laureano at 09/09/2018 03:21_ by_CG. Read back OK. [facility] TOXICOLOGY Etoh (%) 0.345 09/09/2018 [facility] URINE AND STOOL UA Color LYYELLOW 09/09/2018 [facility] URINE AND STOOL UA Ketones Negative 09/09/2018 [facility] URINE AND STOOL UA Urobilinogen <=1.0 mg/dL 0.1 - 1.0 09/09/2018 [facility] URINE AND STOOL UA Bili Negative *NA* (09/09/18 2:42 AM) Negative 09/09/2018 [facility] URINE AND STOOL UA Protein Negative mg/dL Negative mg/dL 09/09/2018 [facility] URINE AND STOOL UA Glucose Negative mg/dL Negative mg/dL 09/09/2018 [facility] URINE AND STOOL UA Blood Negative (09/09/18 2:42 AM) Negative 09/09/2018 [facility] URINE AND STOOL UA Nitrite Negative (09/09/18 2:42 AM) Negative 09/09/2018 [facility] URINE AND STOOL UA Leuk Est Negative (09/09/18 2:42 AM) Negative 09/09/2018 [facility] URINE AND STOOL UA Sq Epi Occasional /LPF Few /LPF 09/09/2018 [facility] URINE AND STOOL UA Mucus Few /LPF None Seen /LPF 09/09/2018 [facility] URINE AND STOOL UA WBC 1 0 - 5 09/09/2018 [facility] URINE AND STOOL UA RBC <1 0 - 2 09/09/2018 [facility] URINE AND STOOL UA Turbidity Clear (09/09/18 2:42 AM) Clear 09/09/2018 [facility] URINE AND STOOL UA Spec Grav 1.004 <=1.030 09/09/2018 [facility] URINE AND STOOL UA pH 6.0 5.0 - 8.0 09/09/2018 [facility] DRUG SCREEN U Benzodiaz Scr Posi tive *ABN* (08/23/18 7:55 PM) Negative 08/24/2018 [facility] DRUG SCREEN U Phencyclidine Scr Nega tive *NA* (08/23/18 7:55 PM) Negative 08/24/2018 [facility] DRUG SCREEN U Buffy Scr Nega tive *NA* (08/23/18 7:55 PM) Negative 08/24/2018 [facility] DRUG SCREEN UDS Note See Note (08/23/18 7:55 PM) 08/24/2018 [facility] DRUG SCREEN U Cocaine Scr Nega tive *NA* (08/23/18 7:55 PM) Negative 08/24/2018 [facility] DRUG SCREEN U Cannab Scr Nega tive *NA* (08/23/18 7:55 PM) Negative 08/24/2018 [facility] DRUG SCREEN U Opiate Scr Nega tive *NA* (08/23/18 7:55 PM) Negative 08/24/2018 [facility] DRUG SCREEN U Amph Scr Nega tive *NA* (08/23/18 7:55 PM) Negative 08/24/2018 [facility] URINE AND STOOL UA WBC 1 0 - 5 08/24/2018 [facility] URINE AND STOOL UA Sq Epi Occasional /LPF Few /LPF 08/24/2018 [facility] URINE AND STOOL UA Urobilinogen <=1.0 mg/dL 0.1 - 1.0 08/24/2018 [facility] URINE AND STOOL UA Color LYYELLOW 08/24/2018 [facility] URINE AND STOOL UA Ketones Negative 08/24/2018 [facility] URINE AND STOOL UA RBC <1 0 - 2 08/24/2018 [facility] URINE AND STOOL UA Nitrite Negative (08/23/18 7:55 PM) Negative 08/24/2018 [facility] URINE AND STOOL UA Blood Negative (08/23/18 7:55 PM) Negative 08/24/2018 [facility] URINE AND STOOL UA Leuk Est Negative (08/23/18 7:55 PM) Negative 08/24/2018 [facility] URINE AND STOOL UA pH 6.0 5.0 - 8.0 08/24/2018 [facility] URINE AND STOOL UA Protein Negative mg/dL Negative mg/dL 08/24/2018 [facility] URINE AND STOOL UA Bili Negative *NA* (08/23/18 7:55 PM) Negative 08/24/2018 [facility] URINE AND STOOL UA Spec Grav 1.004 <=1.030 08/24/2018 [facility] URINE AND STOOL UA Turbidity Clear (08/23/18 7:55 PM) Clear 08/24/2018 [facility] URINE AND STOOL UA Glucose Negative mg/dL Negative mg/dL 08/24/2018 [facility] CHEM PANEL B/C Ratio 8 6 - 25 08/24/2018 [facility] CHEM PANEL AGAP 13.7 10.0 - 20.0 08/24/2018 [facility] CHEM PANEL A/G Ratio 1.1 0.7 - 1.6 08/24/2018 [facility] CHEM PANEL Globulin 3.6 2.7 - 4.2 08/24/2018 [facility] CHEM PANEL eGFR 120 08/24/2018 Result Comment: [...] should be multiplied by the estimated BMI. [facility] CHEM PANEL ALT 73 0 - 65 08/24/2018 [facility] CHEM PANEL Albumin Lvl 3.8 3.5 - 5.0 08/24/2018 [facility] CHEM PANEL Total Protein 7.4 6.4 - 8.4 08/24/2018 [facility] CHEM PANEL Alk Phos 128 39 - 136 08/24/2018 [facility] CHEM PANEL AST 61 0 - 37 08/24/2018 [facility] CHEM PANEL Bili Total 0.2 0.2 - 1.3 08/24/2018 [facility] CHEM PANEL Glucose Lvl 94 70 - 99 08/24/2018 [facility] CHEM PANEL Creatinine Lvl 0.64 0.50 - 1.40 08/24/2018 [facility] CHEM PANEL BUN 5 7 - 22 08/24/2018 [facility] CHEM PANEL Chloride Lvl 111 95 - 109 08/24/2018 [facility] CHEM PANEL Potassium Lvl 3.7 3.5 - 5.1 08/24/2018 [facility] CHEM PANEL Sodium Lvl 145 135 - 145 08/24/2018 [facility] CHEM PANEL Calcium Lvl 8.5 8.5 - 10.5 08/24/2018 [facility] CHEM PANEL CO2 24 24 - 32 08/24/2018 [facility] ENDOCRINOLOGY S Preg Ne gative *NA* (08/23/18 7:33 PM) Negative 08/24/2018 [facility] HEMATOLOGY Eosinophils # 0.1 0.0 - 0.5 08/24/2018 [facility] HEMATOLOGY Basophils # 0.1 0.0 - 0.2 08/24/2018 [facility] HEMATOLOGY Neutrophils # 2.3 1.5 - 8.1 08/24/2018 [facility] HEMATOLOGY Lymphocytes # 1.6 1.0 - 5.5 08/24/2018 [facility] HEMATOLOGY Monocytes # 0.5 0.0 - 0.8 08/24/2018 [facility] HEMATOLOGY Eosinophils 2.4 0.0 - 4.0 08/24/2018 [facility] HEMATOLOGY Basophils 1.4 0.0 - 1.0 08/24/2018 [facility] HEMATOLOGY Monocytes 10.8 2.0 - 12.0 08/24/2018 [facility] HEMATOLOGY Lymphocytes 34.9 20.0 - 40.0 08/24/2018 [facility] HEMATOLOGY Segs 50.5 45.0 - 75.0 08/24/2018 [facility] HEMATOLOGY MCV 94.4 80.0 - 98.0 08/24/2018 [facility] HEMATOLOGY Hct 42.3 36.0 - 48.0 08/24/2018 [facility] HEMATOLOGY MCHC 33.1 32.0 - 36.0 08/24/2018 [facility] HEMATOLOGY MCH 31.2 27.0 - 31.0 08/24/2018 [facility] HEMATOLOGY WBC 4.6 3.7 - 10.4 08/24/2018 [facility] HEMATOLOGY Hgb 14.0 12.0 - 16.0 08/24/2018 [facility] HEMATOLOGY RBC 4.48 4.20 - 5.40 08/24/2018 [facility] HEMATOLOGY Platelet 224 133 - 450 08/24/2018 [facility] HEMATOLOGY RDW 13.7 11.5 - 14.5 08/24/2018 [facility] HEMATOLOGY MPV 7.8 7.4 - 10.4 08/24/2018 [facility] TOXICOLOGY Etoh (%) 0.369 08/24/2018 [facility] TOXICOLOGY Ethanol Lvl 369 08/24/2018 Result Comment: Critical Result(s) called to PAULA Osborn at 08/23/2018 20:18_ by_CG. Read back OK. [facility] TOXICOLOGY Salicylate Lvl 3.4 0.0 - 30.0 08/24/2018 [facility] TOXICOLOGY Acetaminoph Lvl <2 (08/23/18 7:33 PM) 10 - 20 08/24/2018 [facility] DRUG SCREEN UDS Note See Note (08/01/18 9:39 PM) 08/02/2018 [facility] DRUG SCREEN U Opiate Scr Nega tive *NA* (08/01/18 9:39 PM) Negative 08/02/2018 [facility] DRUG SCREEN U Cocaine Scr Nega tive *NA* (08/01/18 9:39 PM) Negative 08/02/2018 [facility] DRUG SCREEN U Benzodiaz Scr Nega tive *NA* (08/01/18 9:39 PM) Negative 08/02/2018 [facility] DRUG SCREEN U Amph Scr Nega tive *NA* (08/01/18 9:39 PM) Negative 08/02/2018 [facility] DRUG SCREEN U Buffy Scr Nega tive *NA* (08/01/18 9:39 PM) Negative 08/02/2018 [facility] DRUG SCREEN U Cannab Scr Nega tive *NA* (08/01/18 9:39 PM) Negative 08/02/2018 [facility] DRUG SCREEN U Phencyclidine Scr Nega tive *NA* (08/01/18 9:39 PM) Negative 08/02/2018 [facility] URINE AND STOOL UA Leuk Est Negative (08/01/18 9:39 PM) Negative 08/02/2018 [facility] URINE AND STOOL UA WBC <1 0 - 5 08/02/2018 [facility] URINE AND STOOL UA RBC <1 0 - 2 08/02/2018 [facility] URINE AND STOOL UA Blood Negative (08/01/18 9:39 PM) Negative 08/02/2018 [facility] URINE AND STOOL UA Nitrite Negative (08/01/18 9:39 PM) Negative 08/02/2018 [facility] URINE AND STOOL UA pH 6.0 5.0 - 8.0 08/02/2018 [facility] URINE AND STOOL UA Ketones Trace mg/dL Negative mg/dL 08/02/2018 [facility] URINE AND STOOL UA Bili Negative *NA* (08/01/18 9:39 PM) Negative 08/02/2018 [facility] URINE AND STOOL UA Protein Negative mg/dL Negative mg/dL 08/02/2018 [facility] URINE AND STOOL UA Turbidity Clear (08/01/18 9:39 PM) Clear 08/02/2018 [facility] URINE AND STOOL UA Spec Grav 1.004 <=1.030 08/02/2018 [facility] URINE AND STOOL UA Color LYYELLOW 08/02/2018 [facility] URINE AND STOOL UA Sq Epi None Seen 08/02/2018 [facility] URINE AND STOOL UA Glucose 50mg/dl 08/02/2018 [facility] URINE AND STOOL UA Urobilinogen <=1.0 mg/dL 0.1 - 1.0 08/02/2018 [facility] TOXICOLOGY Etoh (%) 0.419 08/02/2018 [facility] TOXICOLOGY Ethanol Lvl 419 08/02/2018 Result Comment: Critical Result(s) called to Clif Gwendolyn at 08/01/2018 22:07 by RP. Read back OK. [facility] CARDIAC ENZYMES Total CK 86 12 - 191 08/02/2018 [facility] ELECTROLYTES AGAP 19.6 10.0 - 20.0 08/02/2018 [facility] ELECTROLYTES B/C Ratio 11 6 - 25 08/02/2018 [facility] ELECTROLYTES A/G Ratio 1.1 0.7 - 1.6 08/02/2018 [facility] ELECTROLYTES Globulin 3.5 2.7 - 4.2 08/02/2018 [facility] ELECTROLYTES eGFR 115 08/02/2018 Result [...] should be multiplied by the estimated BMI. [facility] ELECTROLYTES BUN 8 7 - 22 08/02/2018 [facility] ELECTROLYTES Creatinine Lvl 0.7 1 0.50 - 1.40 08/02/2018 [facility] ELECTROLYTES Glucose Lvl 64 70 - 99 08/02/2018 [facility] ELECTROLYTES Bili Total 0.2 0.2 - 1.3 08/02/2018 [facility] ELECTROLYTES Albumin Lvl 3.7 3.5 - 5.0 08/02/2018 [facility] ELECTROLYTES Total Protein 7.2 6.4 - 8.4 08/02/2018 [facility] ELECTROLYTES Alk Phos 93 39 - 136 08/02/2018 [facility] ELECTROLYTES ALT 28 0 - 65 08/02/2018 [facility] ELECTROLYTES AST 32 0 - 37 08/02/2018 [facility] ELECTROLYTES Sodium Lvl 146 135 - 145 08/02/2018 [facility] ELECTROLYTES Potassium Lvl 3.6 3.5 - 5.1 08/02/2018 [facility] ELECTROLYTES Calcium Lvl 8.7 8.5 - 10.5 08/02/2018 [facility] ELECTROLYTES Chloride Lvl 108 95 - 109 08/02/2018 [facility] ELECTROLYTES CO2 22 24 - 32 08/02/2018 [facility] ENDOCRINOLOGY S Preg Ne gative *NA* (08/01/18 9:04 PM) Negative 08/02/2018 [facility] HEMATOLOGY Basophils # 0.1 0.0 - 0.2 08/02/2018 [facility] HEMATOLOGY Eosinophils # 0.1 0.0 - 0.5 08/02/2018 [facility] HEMATOLOGY Monocytes # 0.3 0.0 - 0.8 08/02/2018 [facility] HEMATOLOGY Lymphocytes 24.4 20.0 - 40.0 08/02/2018 [facility] HEMATOLOGY Segs 69.9 45.0 - 75.0 08/02/2018 [facility] HEMATOLOGY Eosinophils 0.8 0.0 - 4.0 08/02/2018 [facility] HEMATOLOGY Lymphocytes # 2.1 1.0 - 5.5 08/02/2018 [facility] HEMATOLOGY Neutrophils # 5.9 1.5 - 8.1 08/02/2018 [facility] HEMATOLOGY Basophils 1.0 0.0 - 1.0 08/02/2018 [facility] HEMATOLOGY Monocytes 3.9 2.0 - 12.0 08/02/2018 [facility] HEMATOLOGY Hgb 12.8 12.0 - 16.0 08/02/2018 [facility] HEMATOLOGY RDW 13.3 11.5 - 14.5 08/02/2018 [facility] HEMATOLOGY Platelet 340 133 - 450 08/02/2018 [facility] HEMATOLOGY MCHC 33.8 32.0 - 36.0 08/02/2018 [facility] HEMATOLOGY MPV 7.4 7.4 - 10.4 08/02/2018 [facility] HEMATOLOGY MCH 31.7 27.0 - 31.0 08/02/2018 [facility] HEMATOLOGY Hct 38.0 36.0 - 48.0 08/02/2018 [facility] HEMATOLOGY MCV 93.9 80.0 - 98.0 08/02/2018 [facility] HEMATOLOGY RBC 4.05 4.20 - 5.40 08/02/2018 [facility] HEMATOLOGY WBC 8.4 3.7 - 10.4 08/02/2018 [facility] CHEM PANEL Calcium Lvl 8.7 8.5 - 10.5 07/30/2018 [facility] CHEM PANEL Chloride Lvl 109 95 - 109 07/30/2018 [facility] CHEM PANEL Potassium Lvl 3.8 3.5 - 5.1 07/30/2018 [facility] CHEM PANEL Sodium Lvl 146 135 - 145 07/30/2018 [facility] CHEM PANEL eGFR 120 07/30/2018 Result [...] should be multiplied by the estimated BMI. [facility] CHEM PANEL AST 18 0 - 37 07/30/2018 [facility] CHEM PANEL Creatinine Lvl 0.64 0.50 - 1.40 07/30/2018 [facility] CHEM PANEL Albumin Lvl 4.0 3.5 - 5.0 07/30/2018 [facility] CHEM PANEL CO2 27 24 - 32 07/30/2018 [facility] CHEM PANEL Glucose Lvl 90 70 - 99 07/30/2018 [facility] CHEM PANEL BUN 4 7 - 22 07/30/2018 [facility] CHEM PANEL Bili Total 0.2 0.2 - 1.3 07/30/2018 [facility] CHEM PANEL Total Protein 7.6 6.4 - 8.4 07/30/2018 [facility] CHEM PANEL Alk Phos 79 39 - 136 07/30/2018 [facility] CHEM PANEL ALT 31 0 - 65 07/30/2018 [facility] CHEM PANEL B/C Ratio 6 6 - 25 07/30/2018 [facility] CHEM PANEL AGAP 13.8 10.0 - 20.0 07/30/2018 [facility] CHEM PANEL Globulin 3.6 2.7 - 4.2 07/30/2018 [facility] CHEM PANEL A/G Ratio 1.1 0.7 - 1.6 07/30/2018 [facility] DRUG SCREEN U Buffy Scr Nega tive *NA* (07/30/18 4:59 PM) Negative 07/30/2018 [facility] DRUG SCREEN U Amph Scr Nega tive *NA* (07/30/18 4:59 PM) Negative 07/30/2018 [facility] DRUG SCREEN U Benzodiaz Scr Nega tive *NA* (07/30/18 4:59 PM) Negative 07/30/2018 [facility] DRUG SCREEN U Cannab Scr Nega tive *NA* (07/30/18 4:59 PM) Negative 07/30/2018 [facility] DRUG SCREEN U Cocaine Scr Nega tive *NA* (07/30/18 4:59 PM) Negative 07/30/2018 [facility] DRUG SCREEN U Opiate Scr Nega tive *NA* (07/30/18 4:59 PM) Negative 07/30/2018 [facility] DRUG SCREEN U Phencyclidine Scr Nega tive *NA* (07/30/18 4:59 PM) Negative 07/30/2018 [facility] DRUG SCREEN UDS Note See Note (07/30/18 4:59 PM) 07/30/2018 [facility] HEMATOLOGY Basophils 0.6 0.0 - 1.0 07/30/2018 [facility] HEMATOLOGY Neutrophils # 5.0 1.5 - 8.1 07/30/2018 [facility] HEMATOLOGY Lymphocytes # 3.1 1.0 - 5.5 07/30/2018 [facility] HEMATOLOGY Monocytes # 0.3 0.0 - 0.8 07/30/2018 [facility] HEMATOLOGY Eosinophils # 0.1 0.0 - 0.5 07/30/2018 [facility] HEMATOLOGY Basophils # 0.1 0.0 - 0.2 07/30/2018 [facility] HEMATOLOGY Eosinophils 1.1 0.0 - 4.0 07/30/2018 [facility] HEMATOLOGY Monocytes 3.1 2.0 - 12.0 07/30/2018 [facility] HEMATOLOGY Lymphocytes 36.3 20.0 - 40.0 07/30/2018 [facility] HEMATOLOGY Segs 58.9 45.0 - 75.0 07/30/2018 [facility] HEMATOLOGY RDW 13.7 11.5 - 14.5 07/30/2018 [facility] HEMATOLOGY MCHC 33.0 32.0 - 36.0 07/30/2018 [facility] HEMATOLOGY MPV 7.5 7.4 - 10.4 07/30/2018 [facility] HEMATOLOGY Platelet 360 133 - 450 07/30/2018 [facility] HEMATOLOGY WBC 8.5 3.7 - 10.4 07/30/2018 [facility] HEMATOLOGY MCV 93.7 80.0 - 98.0 07/30/2018 [facility] HEMATOLOGY Hct 41.6 36.0 - 48.0 07/30/2018 [facility] HEMATOLOGY MCH 30.9 27.0 - 31.0 07/30/2018 [facility] HEMATOLOGY Hgb 13.7 12.0 - 16.0 07/30/2018 [facility] HEMATOLOGY RBC 4.44 4.20 - 5.40 07/30/2018 [facility] TOXICOLOGY Etoh (%) 0.346 07/30/2018 [facility] TOXICOLOGY Ethanol Lvl 346 07/30/2018 Result Comment: Critical Result(s) called to mainor kramer at _07/30/2018 17:43 by_[facility]. Read back OK. [facility] TOXICOLOGY Acetaminoph Lvl <2 (07/30/18 4:59 PM) 10 - 20 07/30/2018 [facility] TOXICOLOGY Salicylate Lvl 4.2 0.0 - 30.0 07/30/2018 [facility] CHEM PANEL eGFR 123 07/27/2018 Result [...] should be multiplied by the estimated BMI. [facility] CHEM PANEL Calcium Lvl 8.2 8.5 - 10.5 07/27/2018 [facility] CHEM PANEL CO2 26 24 - 32 07/27/2018 [facility] CHEM PANEL Chloride Lvl 108 95 - 109 07/27/2018 [facility] CHEM PANEL Potassium Lvl 3.6 3.5 - 5.1 07/27/2018 [facility] CHEM PANEL Sodium Lvl 141 135 - 145 07/27/2018 [facility] CHEM PANEL Glucose Lvl 101 70 - 99 07/27/2018 [facility] CHEM PANEL BUN 6 7 - 22 07/27/2018 [facility] CHEM PANEL Creatinine Lvl 0.59 0.50 - 1.40 07/27/2018 [facility] CHEM PANEL AGAP 10.6 10.0 - 20.0 07/27/2018 [facility] HEMATOLOGY Lymphocytes 17.3 20.0 - 40.0 07/27/2018 [facility] HEMATOLOGY Segs 68.6 45.0 - 75.0 07/27/2018 [facility] HEMATOLOGY Lymphocytes # 2.3 1.0 - 5.5 07/27/2018 [facility] HEMATOLOGY Monocytes # 1.8 0.0 - 0.8 07/27/2018 [facility] HEMATOLOGY Basophils 0.2 0.0 - 1.0 07/27/2018 [facility] HEMATOLOGY Neutrophils # 9.0 1.5 - 8.1 07/27/2018 [facility] HEMATOLOGY Monocytes 13.6 2.0 - 12.0 07/27/2018 [facility] HEMATOLOGY Eosinophils 0.3 0.0 - 4.0 07/27/2018 [facility] HEMATOLOGY MCHC 34.2 32.0 - 36.0 07/27/2018 [facility] HEMATOLOGY MCH 31.6 27.0 - 31.0 07/27/2018 [facility] HEMATOLOGY MPV 8.7 7.4 - 10.4 07/27/2018 [facility] HEMATOLOGY RDW 13.2 11.5 - 14.5 07/27/2018 [facility] HEMATOLOGY Platelet 244 133 - 450 07/27/2018 [facility] HEMATOLOGY MCV 92.4 80.0 - 98.0 07/27/2018 [facility] HEMATOLOGY WBC 13.1 3.7 - 10.4 07/27/2018 [facility] HEMATOLOGY Hct 37.3 36.0 - 48.0 07/27/2018 [facility] HEMATOLOGY RBC 4.03 4.20 - 5.40 07/27/2018 [facility] HEMATOLOGY Hgb 12.7 12.0 - 16.0 07/27/2018 [facility] URINE CHEM U Preg Negat jaime (07/26/18 8:34 PM) Negative 07/27/2018 [facility] BLOOD BANK RESULTS Antibody Scrn Negative (07/26/18 8:17 AM) 07/26/2018 [facility] BLOOD BANK RESULTS ABO/Rh A POS 07/26/2018 [facility] ELECTROLYTES AGAP 13.8 10.0 - 20.0 07/26/2018 [facility] ELECTROLYTES eGFR 120 07/26/2018 Result Comment: The [...] should be multiplied by the estimated BMI. [facility] ELECTROLYTES Calcium Lvl 9.0 8.5 - 10.5 07/26/2018 [facility] ELECTROLYTES Potassium Lvl 3.8 3.5 - 5.1 07/26/2018 [facility] ELECTROLYTES Sodium Lvl 138 135 - 145 07/26/2018 [facility] ELECTROLYTES Chloride Lvl 107 95 - 109 07/26/2018 [facility] ELECTROLYTES CO2 21 24 - 32 07/26/2018 [facility] ELECTROLYTES Creatinine Lvl 0.6 5 0.50 - 1.40 07/26/2018 [facility] ELECTROLYTES BUN 7 7 - 22 07/26/2018 [facility] ELECTROLYTES Glucose Lvl 78 70 - 99 07/26/2018 [facility] HEMATOLOGY MCV 92.8 80.0 - 98.0 07/26/2018 [facility] HEMATOLOGY Hct 41.8 36.0 - 48.0 07/26/2018 [facility] HEMATOLOGY Platelet 226 133 - 450 07/26/2018 [facility] HEMATOLOGY RDW 13.4 11.5 - 14.5 07/26/2018 [facility] HEMATOLOGY MCHC 33.8 32.0 - 36.0 07/26/2018 [facility] HEMATOLOGY MCH 31.4 27.0 - 31.0 07/26/2018 [facility] HEMATOLOGY MPV 8.3 7.4 - 10.4 07/26/2018 [facility] HEMATOLOGY Hgb 14.1 12.0 - 16.0 07/26/2018 [facility] HEMATOLOGY WBC 5.6 3.7 - 10.4 07/26/2018 [facility] HEMATOLOGY RBC 4.50 4.20 - 5.40 07/26/2018 [facility] HEMATOLOGY Monocytes 14.5 2.0 - 12.0 07/26/2018 [facility] HEMATOLOGY Basophils 0.8 0.0 - 1.0 07/26/2018 [facility] HEMATOLOGY Eosinophils 1.9 0.0 - 4.0 07/26/2018 [facility] HEMATOLOGY Monocytes # 0.8 0.0 - 0.8 07/26/2018 [facility] HEMATOLOGY Neutrophils # 2.8 1.5 - 8.1 07/26/2018 [facility] HEMATOLOGY Lymphocytes # 1.9 1.0 - 5.5 07/26/2018 [facility] HEMATOLOGY Eosinophils # 0.1 0.0 - 0.5 07/26/2018 [facility] HEMATOLOGY Segs 49.7 45.0 - 75.0 07/26/2018 [facility] HEMATOLOGY Lymphocytes 33.1 20.0 - 40.0 07/26/2018 [facility] CHEM PANEL eGFR 113 05/04/2018 Result Comment: [...] should be multiplied by the estimated BMI. [facility] CHEM PANEL AGAP 13.9 10.0 - 20.0 05/04/2018 [facility] CHEM PANEL B/C Ratio 8 6 - 25 05/04/2018 [facility] CHEM PANEL Calcium Lvl 9.3 8.5 - 10.5 05/04/2018 [facility] CHEM PANEL Glucose Lvl 86 70 - 99 05/04/2018 [facility] CHEM PANEL BUN 6 7 - 22 05/04/2018 [facility] CHEM PANEL Chloride Lvl 103 95 - 109 05/04/2018 [facility] CHEM PANEL CO2 25 24 - 32 05/04/2018 [facility] CHEM PANEL Sodium Lvl 138 135 - 145 05/04/2018 [facility] CHEM PANEL Potassium Lvl 3.9 3.5 - 5.1 05/04/2018 [facility] CHEM PANEL Creatinine Lvl 0.72 0.50 - 1.40 05/04/2018 [facility] CHEM PANEL Alk Phos 94 39 - 136 05/04/2018 [facility] CHEM PANEL AST 30 0 - 37 05/04/2018 [facility] CHEM PANEL ALT 62 0 - 65 05/04/2018 [facility] CHEM PANEL A/G Ratio 1.1 0.7 - 1.6 05/04/2018 [facility] CHEM PANEL Bili Total 0.3 0.2 - 1.3 05/04/2018 [facility] CHEM PANEL Globulin 3.8 2.7 - 4.2 05/04/2018 [facility] CHEM PANEL Albumin Lvl 4.1 3.5 - 5.0 05/04/2018 [facility] CHEM PANEL Total Protein 7.9 6.4 - 8.4 05/04/2018 [facility] ENDOCRINOLOGY hCG Tot 6162 05/04/2018 [facility] HEMATOLOGY MCV 89.4 80.0 - 98.0 05/04/2018 [facility] HEMATOLOGY Hgb 14.3 12.0 - 16.0 05/04/2018 [facility] HEMATOLOGY Hct 42.3 36.0 - 48.0 05/04/2018 [facility] HEMATOLOGY RDW 14.2 11.5 - 14.5 05/04/2018 [facility] HEMATOLOGY Platelet 277 133 - 450 05/04/2018 [facility] HEMATOLOGY MCHC 33.9 32.0 - 36.0 05/04/2018 [facility] HEMATOLOGY MCH 30.3 27.0 - 31.0 05/04/2018 [facility] HEMATOLOGY MPV 7.7 7.4 - 10.4 05/04/2018 [facility] HEMATOLOGY WBC 10.4 3.7 - 10.4 05/04/2018 [facility] HEMATOLOGY RBC 4.73 4.20 - 5.40 05/04/2018 [facility] URINE AND STOOL UA Mucus None Seen (05/03/18 10:05 PM) None Seen 05/04/2018 [facility] URINE AND STOOL Micro? Performed (05/03/18 10:05 PM) 05/04/2018 [facility] URINE AND STOOL UA Bacteria Occasional /HPF None Seen /HPF 05/04/2018 [facility] URINE AND STOOL UA RBC 1-2 05/04/2018 [facility] URINE AND STOOL UA Urobilinogen 0.2 0.1 - 1.0 05/04/2018 [facility] URINE AND STOOL UA Bili Negative *NA* (05/03/18 10:05 PM) Negative 05/04/2018 [facility] URINE AND STOOL UA Blood Large *ABN* (05/03/18 10:05 PM) Negative 05/04/2018 [facility] URINE AND STOOL UA Sq Epi Occasional /LPF Few /LPF 05/04/2018 [facility] URINE AND STOOL UA WBC 3-5 /HPF None Seen /HPF 05/04/2018 [facility] URINE AND STOOL UA Protein Negative (05/03/18 10:05 PM) Negative 05/04/2018 [facility] URINE AND STOOL UA pH 8.0 5.0 - 8.0 05/04/2018 [facility] URINE AND STOOL UA Glucose Negative (05/03/18 10:05 PM) Negative 05/04/2018 [facility] URINE AND STOOL UA Turbidity Clear (05/03/18 10:05 PM) Clear 05/04/2018 [facility] URINE AND STOOL UA Spec Grav <=1.005 *NA* (05/03/18 10:05 PM) <=1.030 05/04/2018 [facility] URINE AND STOOL UA Ketones Negative *NA* (05/03/18 10:05 PM) Negative 05/04/2018 [facility] URINE AND STOOL UA Nitrite Negative (05/03/18 10:05 PM) Negative 05/04/2018 [facility] URINE AND STOOL UA Leuk Est Trace *ABN* (05/03/18 10:05 PM) Negative 05/04/2018 [facility] URINE AND STOOL UA Color Yellow *NA* (05/03/18 10:05 PM) Yellow 05/04/2018 [facility] URINE CHEM U Preg Posit jaime *ABN* (05/03/18 10:05 PM) Negative 05/04/2018 [facility] DRUG SCREEN UDS Note See Note (10/31/17 [...] tive *NA* (10/31/17 12:05 PM) Negative 10/31/2017 [facility] TOXICOLOGY Ethanol Lvl 206 10/31/2017 [facility] TOXICOLOGY Etoh (%) 0.206 10/31/2017 [facility] ELECTROLYTES CO2 28 24 - 32 10/31/2017 [facility] ELECTROLYTES Calcium Lvl 7.9 8.5 - 10.5 10/31/2017 [facility] ELECTROLYTES Chloride Lvl 107 95 - 109 10/31/2017 [facility] ELECTROLYTES Potassium Lvl 4.2 3.5 - 5.1 10/31/2017 [facility] ELECTROLYTES Total Protein 8.2 6.4 - 8.4 10/31/2017 [facility] ELECTROLYTES Creatinine Lvl 0.6 2 0.50 - 1.40 10/31/2017 [facility] ELECTROLYTES BUN 3 7 - 22 10/31/2017 [facility] ELECTROLYTES Glucose Lvl 85 70 - 99 10/31/2017 [facility] ELECTROLYTES Sodium Lvl 146 135 - 145 10/31/2017 [facility] ELECTROLYTES ALT 36 0 - 65 10/31/2017 [facility] ELECTROLYTES Albumin Lvl 3.4 3.5 - 5.0 10/31/2017 [facility] ELECTROLYTES Bili Total 0.3 0.2 - 1.3 10/31/2017 [facility] ELECTROLYTES Alk Phos 173 39 - 136 10/31/2017 [facility] ELECTROLYTES AST 61 0 - 37 10/31/2017 [facility] eGFR 121 10/31/2017 Result Comment: [...] should be multiplied by the estimated BMI. [facility] ELECTROLYTES Globulin 4.8 2.7 - 4.2 10/31/2017 [facility] ELECTROLYTES B/C Ratio 5 6 - 25 10/31/2017 [facility] ELECTROLYTES A/G Ratio 0.7 0.7 - 1.6 10/31/2017 [facility] ELECTROLYTES AGAP 15.2 10.0 - 20.0 10/31/2017 [facility] HEMATOLOGY Lymphocytes # 2.2 1.0 - 5.5 10/31/2017 [facility] HEMATOLOGY Neutrophils # 1.1 1.5 - 8.1 10/31/2017 [facility] HEMATOLOGY Monocytes # 0.4 0.0 - 0.8 10/31/2017 [facility] HEMATOLOGY Eosinophils # 0.1 0.0 - 0.5 10/31/2017 [facility] HEMATOLOGY Segs 29.3 45.0 - 75.0 10/31/2017 [facility] HEMATOLOGY Eosinophils 1.8 0.0 - 4.0 10/31/2017 [facility] HEMATOLOGY Monocytes 10.3 2.0 - 12.0 10/31/2017 [facility] HEMATOLOGY Basophils 0.9 0.0 - 1.0 10/31/2017 [facility] HEMATOLOGY Lymphocytes 57.7 20.0 - 40.0 10/31/2017 [facility] HEMATOLOGY Hct 34.4 36.0 - 48.0 10/31/2017 [facility] HEMATOLOGY MCV 86.8 80.0 - 98.0 10/31/2017 [facility] HEMATOLOGY MPV 7.0 7.4 - 10.4 10/31/2017 [facility] HEMATOLOGY MCH 28.5 27.0 - 31.0 10/31/2017 [facility] HEMATOLOGY Platelet 199 133 - 450 10/31/2017 [facility] HEMATOLOGY MCHC 32.9 32.0 - 36.0 10/31/2017 [facility] HEMATOLOGY RDW 18.4 11.5 - 14.5 10/31/2017 [facility] HEMATOLOGY WBC 3.9 3.7 - 10.4 10/31/2017 [facility] HEMATOLOGY RBC 3.97 4.20 - 5.40 10/31/2017 [facility] HEMATOLOGY Hgb 11.3 12.0 - 16.0 10/31/2017 [facility] TOXICOLOGY Acetaminoph Lvl <2 10 - 20 10/31/2017 [facility] TOXICOLOGY Etoh (%) 0.325 10/31/2017 [facility] TOXICOLOGY Ethanol Lvl 325 10/31/2017 [facility] TOXICOLOGY Salicylate Lvl 3.3 0.0 - 30.0 10/31/2017 [facility] ELECTROLYTES CO2 24 24 - 32 08/07/2017 [facility] ELECTROLYTES Calcium Lvl 9.2 8.5 - 10.5 08/07/2017 [facility] ELECTROLYTES eGFR 106 08/07/2017 Result Comment: The [...] should be multiplied by the estimated BMI. [facility] ELECTROLYTES Potassium Lvl 4.0 3.5 - 5.1 08/07/2017 [facility] ELECTROLYTES Sodium Lvl 134 135 - 145 08/07/2017 [facility] ELECTROLYTES Creatinine Lvl 0.7 6 0.50 - 1.40 08/07/2017 [facility] ELECTROLYTES BUN 4 7 - 22 08/07/2017 [facility] ELECTROLYTES Glucose Lvl 177 70 - 99 08/07/2017 [facility] ELECTROLYTES Chloride Lvl 101 95 - 109 08/07/2017 [facility] ELECTROLYTES AGAP 13.0 10.0 - 20.0 08/07/2017 [facility] HEMATOLOGY Platelet 247 133 - 450 08/07/2017 [facility] HEMATOLOGY MPV 8.0 7.4 - 10.4 08/07/2017 [facility] HEMATOLOGY WBC 9.7 3.7 - 10.4 08/07/2017 [facility] HEMATOLOGY RBC 3.81 4.20 - 5.40 08/07/2017 [facility] HEMATOLOGY MCHC 32.6 32.0 - 36.0 08/07/2017 [facility] HEMATOLOGY RDW 15.2 11.5 - 14.5 08/07/2017 [facility] HEMATOLOGY Hgb 10.9 12.0 - 16.0 08/07/2017 [facility] HEMATOLOGY MCV 87.8 80.0 - 98.0 08/07/2017 [facility] HEMATOLOGY MCH 28.6 27.0 - 31.0 08/07/2017 [facility] HEMATOLOGY Hct 33.4 36.0 - 48.0 08/07/2017 [facility] HEMATOLOGY Segs 64.9 45.0 - 75.0 08/07/2017 [facility] HEMATOLOGY Lymphocytes # 1.4 1.0 - 5.5 08/07/2017 [facility] HEMATOLOGY Basophils 0.5 0.0 - 1.0 08/07/2017 [facility] HEMATOLOGY Segs-Bands # 6.3 1.5 - 8.1 08/07/2017 [facility] HEMATOLOGY Eosinophils 1.1 0.0 - 4.0 08/07/2017 [facility] HEMATOLOGY Monocytes # 1.9 0.0 - 0.8 08/07/2017 [facility] HEMATOLOGY Eosinophils # 0.1 0.0 - 0.5 08/07/2017 [facility] HEMATOLOGY Monocytes 19.3 2.0 - 12.0 08/07/2017 [facility] HEMATOLOGY Lymphocytes 14.2 20.0 - 40.0 08/07/2017 [facility] HEMATOLOGY Basophils # 0.1 0.0 - 0.2 08/07/2017 [facility] URINE AND STOOL UA WBC 3-5 /HPF None Seen /HPF 08/07/2017 [facility] URINE AND STOOL UA RBC 0-2 /HPF 0 - 2 08/07/2017 [facility] URINE AND STOOL UA Bacteria Few /HPF None Seen /HPF 08/07/2017 [facility] URINE AND STOOL UA Sq Epi Moderate /LPF Few /LPF 08/07/2017 [facility] URINE AND STOOL UA Glucose Negative (08/07/17 4:14 PM) Negative 08/07/2017 [facility] URINE AND STOOL UA pH 6.0 5.0 - 8.0 08/07/2017 [facility] URINE AND STOOL UA Ketones Negative *NA* (08/07/17 4:14 PM) Negative 08/07/2017 [facility] URINE AND STOOL UA Bili Negative *NA* (08/07/17 4:14 PM) Negative 08/07/2017 [facility] URINE AND STOOL UA Protein Negative (08/07/17 4:14 PM) Negative 08/07/2017 [facility] URINE AND STOOL UA Turbidity Clear (08/07/17 4:14 PM) Clear 08/07/2017 [facility] URINE AND STOOL UA Color Yellow *NA* (08/07/17 4:14 PM) Yellow 08/07/2017 [facility] URINE AND STOOL UA Spec Grav <=1.005 *NA* (08/07/17 4:14 PM) <=1.030 08/07/2017 [facility] URINE AND STOOL UA Nitrite Negative (08/07/17 4:14 PM) Negative 08/07/2017 [facility] URINE AND STOOL UA Blood Negative (08/07/17 4:14 PM) Negative 08/07/2017 [facility] URINE AND STOOL UA Leuk Est Moderate *ABN* (08/07/17 4:14 PM) Negative 08/07/2017 [facility] URINE AND STOOL UA Urobilinogen 0.2 0.1 - 1.0 08/07/2017 [facility] URINE CHEM U Preg Negat jaime (08/07/17 4:14 PM) Negative 08/07/2017 [facility] Pathology Reports No Data Provided for This [...] of acute intracranial abnormality. JULIANNA: MARLEY 12/09/2018 [facility] Facial bone wo contrast CT Cli nical [...] to patient size -[facility] Rad[facility] Dose DLP 260 mGy-cm [...] to chronic sinus disease. SL: 82 10/18/2018 [facility] Brain wo contrast CT CT BRAIN WITHOUT [...] cervical spine abnormalities are visualized. SL:16 10/18/2018 [facility] Spine cervical wo contrast CT CT BRAIN [...] cervical spine abnormalities are visualized. SL:16 10/18/2018 [facility] Abdomen/Pelvis wo IV contrast CT Clinical Indication: [...] and pelvis without contrast. SL: 82 09/25/2018 [facility] Shoulder series DX Clinical In dication: - [...] in the right shoulder. SL: 82 09/24/2018 [facility] Brain wo contrast CT CT BRAIN WITHOUT [...] acute intracranial abnormalities are visualized. SL:16 09/09/2018 [facility] Spine cervical wo contrast CT Exam: Spine [...] to patient size -Use of iterative [facility] Radiation Dose DLP 509.8 mGy-cm [...] of the cervical spine. SL: [id number] 08/23/2018 [facility] Brain wo contrast CT CT head w [...] No acute intracranial abnormality. SL: SGEB-M 08/23/2018 [facility] Brain wo contrast CT Clinical Indication: Head [...] to patient size -Use of iterative [facility] Radiation Dose DLP 722.2 mGy-cm [...] of acute territorial infarction. SL: [id number] 07/13/2018 [facility] Forearm 2 views DX Clinical In dication: [...] foreign body is identified. SL: 82 07/13/2018 [facility] Spine cervical wo contrast CT Clinical Indication: [...] intramural fundal fibroid measures 5 cm. 06/12/2018 [facility] Elbow 3 views DX Clinical Skylar [...] seous injury of the right elbow. : [id number] 10/31/2017 [facility] Shoulder series DX Clinical In dication: [...] seous injury of the right elbow. SL: [id number] 10/31/2017 [facility] Brain wo contrast CT Clinical Indication: [...] no mass, hemorrhage or subacute stroke. SL: [id number] 10/31/2017 [facility] Spine cervical wo contrast CT Clinical [...] positional or secondary to muscular spasm. SL: [id number] 10/31/2017 [facility] Consultation Notes No Data Provided for [...] [place] Diastolic (mm Hg) 73 08/02/2018 [facility] Respitory Rate 20 08/02/2018 [facility] Systolic (mm Hg) 106 08/02/2018 [facility] Diastolic (mm Hg) 68 08/02/2018 [facility] Temperature Oral (F) 99 F 08/02/2018 [facility] Respitory Rate 18 08/02/2018 [facility] Weight 66.818 08/02/2018 [facility] BMI Calculated 23.07 08/02/2018 [facility] Heart Rate 104 08/02/2018 [facility] Height 170.18 cm 08/02/2018 [facility] Heart Rate 80 07/31/2018 [facility] Respitory Rate 16 07/31/2018 [facility] Systolic (mm Hg) 122 07/31/2018 [facility] Diastolic (mm Hg) 68 07/31/2018 [facility] Temperature Oral (F) 98.6 F 07/31/2018 [facility] Systolic (mm Hg) 119 07/31/2018 [facility] Diastolic (mm Hg) 64 07/31/2018 [facility] Heart Rate 84 07/31/2018 [facility] Respitory Rate 17 07/31/2018 [facility] Respitory Rate 16 07/31/2018 [facility] Systolic (mm Hg) 120 07/31/2018 [facility] Diastolic (mm Hg) 68 07/31/2018 [facility] Heart Rate 72 07/31/2018 [facility] Weight 81.818 07/30/2018 [facility] Respitory Rate 16 07/27/2018 [facility] Systolic (mm Hg) 96 07/27/2018 [facility] Diastolic (mm Hg) 59 07/27/2018 [facility] Heart Rate 67 07/27/2018 [facility] Temperature Oral (F) 98.4 F 07/27/2018 [facility] Temperature Oral (F) 98.8 F 07/27/2018 [facility] Respitory Rate 16 07/27/2018 [facility] Heart Rate 73 07/27/2018 [facility] Systolic (mm Hg) 100 07/27/2018 [facility] Diastolic (mm Hg) 62 07/27/2018 [facility] Systolic (mm Hg) 109 07/27/2018 [facility] Diastolic (mm Hg) 64 07/27/2018 [facility] Respitory Rate 18 07/27/2018 [facility] Heart Rate 82 07/27/2018 [facility] Temperature Oral (F) 98.9 F 07/27/2018 [facility] Weight 74.318 07/26/2018 [facility] BMI Calculated 29.02 07/26/2018 [facility] Height 160.02 cm 07/26/2018 [facility] BMI Calculated 0.65 07/26/2018 [facility] Weight 1.676 07/26/2018 [facility] Height 160.02 cm 07/21/2018 [facility] Systolic (mm Hg) 100 07/13/2018 [facility] Diastolic (mm Hg) 56 07/13/2018 [facility] Heart Rate 89 07/13/2018 [facility] Respitory Rate 17 07/13/2018 [facility] Weight 63.636 07/13/2018 [facility] BMI Calculated 24.08 07/13/2018 [facility] Respitory Rate 20 07/13/2018 [facility] Systolic (mm Hg) 104 07/13/2018 [facility] Diastolic (mm Hg) 90 07/13/2018 [facility] Heart Rate 121 07/13/2018 [facility] Temperature Oral (F) 98.2 F 07/13/2018 [facility] Height 162.56 cm 07/13/2018 [facility] Heart Rate 85 05/04/2018 [facility] Systolic (mm Hg) 115 05/04/2018 [facility] Diastolic (mm Hg) 74 05/04/2018 [facility] Respitory Rate 16 05/04/2018 [facility] Temperature Oral (F) 98.5 F 05/04/2018 [facility] Temperature Oral (F) 98.6 F 05/04/2018 [facility] Weight 65.909 05/04/2018 [facility] BMI Calculated 26.58 05/04/2018 [facility] Height 157.48 cm 05/04/2018 [facility] Systolic (mm Hg) 129 05/04/2018 [facility] Diastolic (mm Hg) 84 05/04/2018 [facility] Heart Rate 85 05/04/2018 [facility] Respitory Rate 17 05/04/2018 [facility] Systolic (mm Hg) 120 11/01/2017 [facility] Diastolic (mm Hg) 75 11/01/2017 [facility] Respitory Rate 18 11/01/2017 [facility] Temperature Oral (F) 98.2 F 11/01/2017 [facility] Heart Rate 66 11/01/2017 [facility] Systolic (mm Hg) 129 11/01/2017 [facility] Diastolic (mm Hg) 85 11/01/2017 [facility] Respitory Rate 16 11/01/2017 [facility] Heart Rate 68 11/01/2017 [facility] Temperature Oral (F) 98.1 F 11/01/2017 [facility] Systolic (mm Hg) 134 11/01/2017 [facility] Diastolic (mm Hg) 89 11/01/2017 [facility] Respitory Rate 18 11/01/2017 [facility] Temperature Oral (F) 98.2 F 11/01/2017 [facility] Heart Rate 62 11/01/2017 [facility] Heart Rate 93 08/08/2017 [facility] Temperature Oral (F) 98.4 F 08/08/2017 [facility] Respitory Rate 20 08/08/2017 [facility] Systolic (mm Hg) 112 08/08/2017 [facility] Diastolic (mm Hg) 72 08/08/2017 [facility] Heart Rate 96 08/08/2017 [facility] Temperature Oral (F) 97.6 F 08/08/2017 [facility] Systolic (mm Hg) 110 08/08/2017 [facility] Diastolic (mm Hg) 72 08/08/2017 [facility] Respitory Rate 22 08/08/2017 [facility] Respitory Rate 16 08/07/2017 [facility] Heart Rate 114 08/07/2017 [facility] Temperature Oral (F) 98.6 F 08/07/2017 [facility] Systolic (mm Hg) 117 08/07/2017 [facility] Diastolic (mm Hg) 63 08/07/2017 [facility] BMI Calculated 25.84 08/07/2017 [facility] Weight 64.091 08/07/2017 [facility] Height 157.48 cm 08/07/2017 [facility] Encounters Location Location Details Encounter Type Encounter Number Reason For Visit Attending Provider ADM Date DC Date Status Source [facility] Emergency [id number] Keturah Chávez 08/07/2017 08/08/2017 [facility] Emergency [id number] Chuckshantelle Brown 10/31/2017 11/01/2017 [facility] Emergency [id number] [facility] 05/04/2018 05/04/2018 [facility] Outpatient Imaging [facility] Out Diag Services [id number] 00 Martha Wisam 06/12/2018 06/13/2018 [facility] Emergency [id number] KimberMerleneDerek Jorgenir Billy 07/14/1907/13/2018 [facility] Observation [id number] Marietta Barraza 07/26/2018 07/27/2018 [facility] Emergency [id number] Maurisiodelbert Celeste 07/30/2018 07/31/2018 [facility] Emergency [id number] Bobby Hunter 08/02/2018 08/02/2018 [facility] Emergency [id number] Avis Alcantara 019 08/24/2018 [facility] Emergency [id number] Preston Beard 09/09/2018 09/09/2018 [facility] Emergency [id number] Danish Caruso 09/25/2018 09/25/2018 [facility] Emergency [id number] Conner Finley 10/18/2018 10/18/2018 [facility] Emergency [id number] Luc Demarco 12/05/2018 12/05/2018 [facility] Inpatient [id number] Minerva Damian 12/10/1912/12/2018 [facility] Procedures Procedure Code Date Perfomer Comments Source Dilatation and curettage<sup>1</sup> [id number] ~2013 [facility] Hospital Assessment and Plan Assessment and Plan [...] be given as needed for agitation. 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 says she previously took [place] for her prior procedures and requests norco [...] Pt reports pain poorly controlled- will add [place] 5-325 with expectation that she will not be discharged with the regimen. -GI: bee reg diet -: voiding -Hb 14> EBL 30> 12.7 -ppx: SCDs dispo: anticipate D/C home today Bette Schneider MD Resident Physician | PGY4 Department of Obstetrics, Gynecology and Reproductive Sciences [facility] Addendum by Bette Schneider MD on 07/27/2018 09:46 dictation no [id number] Extracted from:Title: Clinical Document Author: Marietta Barraza [...] Tablet; TAKE 1 TABLET TWICE DAILY; Therapy: [id number] to Recorded Past Medical History 1. History [...] for scheduled surgery Guillermo Harris M.D. 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 [...] x 10 years; entered on: 07/26/18 07/26/2018 [facility] Social History TypeResponse Substance Abuse Use: Past. Amount: tried marijuana "many years ago". Alcohol Past, Frequency: Daily. Stopped age 32 Years. Previous treatment: Alcoholics Anonymous. Smoking Status Current every day smoker; Type: Cigarettes; Lives with someone who smokes; Cigarette Smoking Last 365 Days Yes; Reg Smoking Cessation Counseling Yes; Other Tobacco Frequency 1/2 PPD x 10 years; entered on: 08/01/18 07/26/2018 [facility] Social History TypeResponse Smoking Status Current every day smoker; Type: Cigarettes; Exposure to Tobacco Smoke None; Cigarette Smoking Last 365 Days Yes; Reg Smoking Cessation Counseling Yes entered on: 10/31/17 [facility] Social History TypeResponse Smoking Status Current every day smoker; Type: Cigarettes; Exposure to Tobacco Smoke None; Cigarette Smoking Last 365 Days Yes; Reg Smoking Cessation Counseling Yes entered on: 10/31/17 10/31/2017 [facility] Family History No Data Provided for This Section Advance Directives No Data Provided for This Section Functional Status No Data Provided for This Section
--- OUTSIDE RECORDS SUMMARY | 2019-11-23 10:44 | XMS REPORT | Continuity of Care Document ---
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 2017-02-03 00:00:00 Completed [facility] Influenza Vaccine, Seasonal, Injectable 2017-02-03 00:00:0 0 Completed [facility] Vital Signs Vital Name Observation Time Observation Value Comments Source Body Temperature 2019-10-28 04:17:00 97.0 [degF] [facility] Weight 2019-10-27 09:24:00 127 [lb_av] [facility] BMI (Body Mass Index) 2019-10-27 09:24:00 23.2 kg/m2 [facility] Systolic blood pressure 2019-09-06 20:48:00 137 mm[Hg] [facility] Diastolic blood pressure 2019-09-06 20:48:00 96 mm[Hg] [facility] Heart rate 2019-09-06 20:48:00 87 /min [facility] Body temperature 2019-09-06 20:48:00 37.28 [facility] Respiratory rate 2019-09-06 20:48:00 16 /min [facility] Oxygen saturation in Arterial blood by Pulse oximetry 09-05 20:48:00 96 /min [facility] Temperature Oral (F) 2018-12-12 16:39:00 97.5 F [facility] Heart Rate 2018-12-12 16:39:00 [facility] Respitory Rate 2018-12-12 16:39:00 [facility] [place] Systolic (mm Hg) 2018-12-12 16:39:00 [facility] [place] Diastolic (mm Hg) 2018-12-12 16:39:00 [facility] [place] Temperature Oral (F) 2018-12-12 12:58:00 97.6 F [facility] Heart Rate 2018-12-12 12:58:00 [facility] [place] [facility] Systolic (mm Hg) 2018-12-12 12:58:00 [facility] Diastolic (mm Hg) 2018-12-12 12:58:00 [facility] [place] Respitory Rate 2018-12-12 12:58:00 [facility] Temperature Oral (F) 2018-12-12 09:12:00 98.3 F [facility] Respitory Rate 2018-12-12 09:12:00 [facility] Systolic (mm Hg) 2018-12-12 09:12:00 [facility] Diastolic (mm Hg) 2018-12-12 09:12:00 [facility] Heart Rate 2018-12-11 10:28:00 [facility] [place] [facility] Height 2018-12-09 11:22:00 157.4 cm [facility] Weight 2018-12-09 11:22:00 [facility] BMI Calculated 2018-12-09 11:22:00 [facility] Height 2018-12-09 05:43:00 157.48 cm [facility] BMI Calculated 2018-12-09 05:43:00 [facility] Weight 2018-12-09 05:43:00 [facility] [place] Heart Rate 2018-12-05 20:59:00 [facility] Respitory Rate 2018-12-05 20:59:00 [facility] [place] Systolic (mm Hg) 2018-12-05 20:59:00 [facility] [place] Diastolic (mm Hg) 2018-12-05 20:59:00 [facility] Respitory Rate 2018-12-05 18:46:00 [facility] Heart Rate 2018-12-05 18:46:00 [facility] [place] Systolic (mm Hg) 2018-12-05 18:46:00 [facility] [place] Diastolic (mm Hg) 2018-12-05 18:46:00 [facility] Heart Rate 2018-12-05 14:04:00 [facility] [place] [facility] Respitory Rate 2018-12-05 14:04:00 [facility] Height 2018-12-05 14:04:00 167.64 cm [facility] BMI Calculated 2018-12-05 14:04:00 [facility] [place] Weight 2018-12-05 14:04:00 [facility] Temperature Oral (F) 2018-10-18 13:19:00 98.5 F [facility] Heart Rate 2018-10-18 13:19:00 [facility] [place] Systolic (mm Hg) 2018-10-18 13:19:00 [facility] Diastolic (mm Hg) 2018-10-18 13:19:00 [facility] [place] Systolic (mm Hg) 2018-10-18 11:39:00 [facility] [place] Diastolic (mm Hg) 2018-10-18 11:39:00 [facility] Heart Rate 2018-10-18 11:39:00 [facility] Temperature Oral (F) 2018-10-18 11:39:00 98 F [facility] Systolic (mm Hg) 2018-10-18 05:06:00 [facility] Diastolic (mm Hg) 2018-10-18 05:06:00 [facility] [place] Heart Rate 2018-10-18 05:06:00 [facility] [place] Respitory Rate 2018-10-18 05:06:00 [facility] Temperature Oral (F) 2018-10-18 05:06:00 97.6 F [facility] Height 2018-10-18 05:06:00 157.48 cm [facility] BMI Calculated 2018-10-18 05:06:00 [facility] [place] Weight 2018-10-18 05:06:00 [facility] Systolic (mm Hg) 2018-09-25 07:00:00 [facility] [place] Diastolic (mm Hg) 2018-09-25 07:00:00 [facility] Temperature Oral (F) 2018-09-25 07:00:00 98.1 F [facility] Respitory Rate 2018-09-25 07:00:00 [facility] [place] Heart Rate 2018-09-25 07:00:00 [facility] [place] Respitory Rate 2018-09-25 06:00:00 [facility] Systolic (mm Hg) 2018-09-25 06:00:00 [facility] [place] Diastolic (mm Hg) 2018-09-25 06:00:00 [facility] Heart Rate 2018-09-25 06:00:00 [facility] Temperature Oral (F) 2018-09-25 06:00:00 98.0 F [facility] Respitory Rate 2018-09-25 03:45:00 [facility] [place] Systolic (mm Hg) 2018-09-25 03:45:00 [facility] [place] Diastolic (mm Hg) 2018-09-25 03:45:00 [facility] Heart Rate 2018-09-25 03:45:00 [facility] [place] BMI Calculated 2018-09-25 03:32:00 [facility] [place] Weight 2018-09-25 03:32:00 [facility] Height 2018-09-25 03:32:00 157.48 cm [facility] Temperature Oral (F) 2018-09-25 03:32:00 99.7 F [facility] Heart Rate 2018-09-09 12:43:00 [facility] Systolic (mm Hg) 2018-09-09 12:43:00 [facility] [place] Diastolic (mm Hg) 2018-09-09 12:43:00 [facility] [place] Respitory Rate 2018-09-09 12:43:00 [facility] [...] Systolic (mm Hg) 2018-09-09 06:49:00 [facility] [place] Diastolic (mm Hg) 2018-09-09 06:49:00 [facility] [place] BP Systolic 2018-09-06 11:12:00 109 mm[Hg] Location: RAJESH Kennedy on: Sitting [facility] BP Diastolic 2018-09-06 11:12:00 75 mm[Hg] Location: RAJESH Kennedy on: Sitting [facility] Height 2018-09-06 11:12:00 63 [in_us] [facility] Weight 2018-09-06 11:12:00 121 [lb_av] [facility] Body Mass Index Calculated 2018-09-06 11:12:00 21.43 kg/m2 [facility] Temperature 2018-09-06 11:12:00 98.2 [degF] Method: Oral [facility] Heart Rate 2018-09-06 11:12:00 99 /min [facility] Respitory Rate 2018-08-24 05:15:00 [facility] [place] Systolic (mm Hg) 2018-08-24 05:15:00 [facility] [place] Diastolic (mm Hg) 2018-08-24 05:15:00 [facility] Respitory Rate 2018-08-24 04:36:00 [facility] [place] Systolic (mm Hg) 2018-08-24 04:36:00 [facility] [place] Diastolic (mm Hg) 2018-08-24 04:36:00 [facility] [place] Respitory Rate 2018-08-24 03:34:00 [facility] [place] Systolic (mm Hg) 2018-08-24 03:34:00 [facility] Diastolic (mm Hg) 2018-08-24 03:34:00 [facility] [place] Weight 2018-08-24 00:09:00 [facility] [place] Height 2018-08-24 00:09:00 165.1 cm [facility] BMI Calculated 2018-08-24 00:09:00 [facility] Temperature Oral (F) 2018-08-24 00:09:00 98.5 F [facility] Heart Rate 2018-08-24 00:09:00 [facility] [place] [facility] BP Systolic 2018-08-09 08:56:00 129 mm[Hg] Location: RUE; Positi on: Sitting [facility] BP Diastolic 2018-08-09 08:56:00 87 mm[Hg] Location: RUE; Positi on: Sitting [facility] Height 2018-08-09 08:56:00 63 [in_us] [facility] Weight 2018-08-09 08:56:00 126.2 [lb_av] [facility] Body Mass Index Calculated 2018-08-09 08:56:00 22.36 kg/m2 [facility] Temperature 2018-08-09 08:56:00 98 [degF] Method: Oral [facility] Heart Rate 2018-08-09 08:56:00 87 /min [facility] Systolic (mm Hg) 2018-08-02 18:30:00 [facility] [place] Diastolic (mm Hg) 2018-08-02 18:30:00 [facility] Respitory Rate 2018-08-02 18:30:00 [facility] Temperature Oral (F) 2018-08-02 18:30:00 98.5 F [facility] Temperature Oral (F) 2018-08-02 16:01:00 98.4 F [facility] Systolic (mm Hg) 2018-08-02 16:01:00 [facility] [place] Diastolic (mm Hg) 2018-08-02 16:01:00 [facility] Respitory Rate 2018-08-02 16:01:00 [facility] Systolic (mm Hg) 2018-08-02 14:02:00 [facility] Diastolic (mm Hg) 2018-08-02 14:02:00 [facility] [place] Temperature Oral (F) 2018-08-02 14:02:00 99 F [facility] Respitory Rate 2018-08-02 14:02:00 [facility] Weight 2018-08-02 01:05:00 [facility] BMI Calculated 2018-08-02 01:05:00 [facility] [place] Heart Rate 2018-08-02 01:05:00 [facility] Height 2018-08-02 01:05:00 170.18 cm [facility] Heart Rate 2018-07-31 12:07:00 [facility] Respitory Rate 2018-07-31 12:07:00 [facility] [place] Systolic (mm Hg) 2018-07-31 12:07:00 [facility] [place] Diastolic (mm Hg) 2018-07-31 12:07:00 [facility] Temperature Oral (F) 2018-07-31 12:07:00 98.6 F [facility] Systolic (mm Hg) 2018-07-31 08:30:00 [facility] [place] Diastolic (mm Hg) 2018-07-31 08:30:00 [facility] Heart Rate 2018-07-31 08:30:00 [facility] [place] Respitory Rate 2018-07-31 08:30:00 [facility] [place] Respitory Rate 2018-07-31 04:30:00 [facility] [place] Systolic (mm Hg) 2018-07-31 04:30:00 [facility] [place] Diastolic (mm Hg) 2018-07-31 04:30:00 [facility] Heart Rate 2018-07-31 04:30:00 [facility] [place] Weight 2018-07-30 21:10:00 [facility] Respitory Rate 2018-07-27 12:52:00 [facility] Systolic (mm Hg) 2018-07-27 12:52:00 [facility] [place] Diastolic (mm Hg) 2018-07-27 12:52:00 [facility] Heart Rate 2018-07-27 12:52:00 [facility] Temperature Oral (F) 2018-07-27 12:52:00 98.4 F [facility] Temperature Oral (F) 2018-07-27 08:39:00 98.8 F [facility] Respitory Rate 2018-07-27 08:39:00 [facility] Heart Rate 2018-07-27 08:39:00 [facility] [place] Systolic (mm Hg) 2018-07-27 08:39:00 [facility] [place] Diastolic (mm Hg) 2018-07-27 08:39:00 [facility] Systolic (mm Hg) 2018-07-27 04:37:00 [facility] Diastolic (mm Hg) 2018-07-27 04:37:00 [facility] Respitory Rate 2018-07-27 04:37:00 [facility] Heart Rate 2018-07-27 04:37:00 [facility] Temperature Oral (F) 2018-07-27 04:37:00 98.9 F [facility] Weight 2018-07-26 21:41:00 [facility] [place] BMI Calculated 2018-07-26 21:41:00 [facility] [place] Height 2018-07-26 21:41:00 160.02 cm [facility] BMI Calculated 2018-07-26 13:20:00 [facility] Weight 2018-07-26 13:20:00 [facility] Height 2018-07-21 21:10:00 160.02 cm [facility] BP Systolic 2018-07-19 09:21:00 138 mm[Hg] Location: RUE; Positi on: Sitting [facility] BP Diastolic 2018-07-19 09:21:00 78 mm[Hg] Location: RUSunil; Positi on: Sitting [facility] Height 2018-07-19 09:21:00 63 [in_us] [facility] Weight 2018-07-19 09:21:00 134 [lb_av] [facility] Body Mass Index Calculated 2018-07-19 09:21:00 23.74 kg/m2 [facility] Temperature 2018-07-19 09:21:00 98.3 [degF] Method: Oral [facility] Heart Rate 2018-07-19 09:21:00 111 /min [facility] Systolic (mm Hg) 2018-07-13 12:30:00 [facility] Diastolic (mm Hg) 2018-07-13 12:30:00 [facility] Heart Rate 2018-07-13 12:30:00 [facility] [place] [facility] Respitory Rate 2018-07-13 12:30:00 [facility] [place] Weight 2018-07-13 11:00:00 [facility] BMI Calculated 2018-07-13 11:00:00 [facility] Respitory Rate 2018-07-13 11:00:00 [facility] Systolic (mm Hg) 2018-07-13 11:00:00 [facility] Diastolic (mm Hg) 2018-07-13 11:00:00 [facility] [place] Heart Rate 2018-07-13 11:00:00 [facility] Temperature Oral (F) 2018-07-13 11:00:00 98.2 F [facility] Height 2018-07-13 11:00:00 162.56 cm [facility] Heart Rate 2018-05-04 06:36:00 [facility] Systolic (mm Hg) 2018-05-04 06:36:00 [facility] Diastolic (mm Hg) 2018-05-04 06:36:00 [facility] Respitory Rate 2018-05-04 06:36:00 [facility] [place] Temperature Oral (F) 2018-05-04 06:36:00 98.5 F [facility] Temperature Oral (F) 2018-05-04 03:50:00 98.6 F [facility] Weight 2018-05-04 03:50:00 [facility] BMI Calculated 2018-05-04 03:50:00 [facility] Height 2018-05-04 03:50:00 157.48 cm [facility] Systolic (mm Hg) 2018-05-04 03:50:00 [facility] [place] Diastolic (mm Hg) 2018-05-04 03:50:00 [facility] [place] Heart Rate 2018-05-04 03:50:00 [facility] Respitory Rate 2018-05-04 03:50:00 [facility] [place] Systolic (mm Hg) 2017-11-01 21:00:00 [facility] [place] Diastolic (mm Hg) 2017-11-01 21:00:00 [facility] Respitory Rate 2017-11-01 21:00:00 [facility] Temperature Oral (F) 2017-11-01 21:00:00 98.2 F [facility] Heart Rate 2017-11-01 21:00:00 [facility] Systolic (mm Hg) 2017-11-01 17:00:00 [facility] [place] Diastolic (mm Hg) 2017-11-01 17:00:00 [facility] Respitory Rate 2017-11-01 17:00:00 [facility] [place] Heart Rate 2017-11-01 17:00:00 [facility] Temperature Oral (F) 2017-11-01 17:00:00 98.1 F [facility] Systolic (mm Hg) 2017-11-01 12:45:00 [facility] [place] Diastolic (mm Hg) 2017-11-01 12:45:00 [facility] Respitory Rate 2017-11-01 12:45:00 [facility] [place] Temperature Oral (F) 2017-11-01 12:45:00 98.2 F [facility] Heart Rate 2017-11-01 12:45:00 [facility] Heart Rate 2017-08-08 02:47:00 [facility] Temperature Oral (F) 2017-08-08 02:47:00 98.4 F [facility] Respitory Rate 2017-08-08 02:47:00 [facility] Systolic (mm Hg) 2017-08-08 02:47:00 [facility] [place] Diastolic (mm Hg) 2017-08-08 02:47:00 [facility] Heart Rate 2017-08-08 01:36:00 [facility] Temperature Oral (F) 2017-08-08 01:36:00 97.6 F [facility] Systolic (mm Hg) 2017-08-08 01:36:00 [facility] Diastolic (mm Hg) 2017-08-08 01:36:00 [facility] Respitory Rate 2017-08-08 01:36:00 [facility] [place] Respitory Rate 2017-08-07 23:50:00 [facility] [place] Heart Rate 2017-08-07 23:50:00 [facility] Temperature Oral (F) 2017-08-07 23:50:00 98.6 F [facility] Systolic (mm Hg) 2017-08-07 23:50:00 [facility] Diastolic (mm Hg) 2017-08-07 23:50:00 [facility] [place] BMI Calculated 2017-08-07 20:27:00 [facility] Weight 2017-08-07 20:27:00 [facility] Height 2017-08-07 20:27:00 157.48 cm [facility] Procedures Procedure Date / Time Performed Performing Clinician [facility] e Computed tomography of brain without radiopaque contrast 2019-10 00:00:00 [facility] GLUCOSE POC 2019-09-06 17:16:00 Wilfrido Martins [facility] th XRAY CHEST 1 VIEW 2019-09-06 14:35:35 Wilfrido Martins [facility] CORONAVIRUS, COVID-19, GIULIANA 2019-09-06 08:26:00 AndBrissa sutton [facility] CONSULT CLINICAL CASE MANAGEMENT (RN/SW) 2019-09-06 05:32:55 Luther marroquin [facility] IP CONSULT WITH INSIGHT 2019-09-06 05:32:55 Lakshmi Replaced by [facility] BMP POC 2019-09-06 01:51:00 Lakshmi [facility] BMP POC 2019-09-06 01:34:[address] [facility] [address] HEAD W/O CONTRAST 2019-09-06 01:06:53 Lakshmi [facility] CT MAXILLOFACIAL W/O CONTRAST 2019-09-06 01:06:53 Arthur Martins [facility] CBC/DIFF 2019-09-05 23:53:00 Lakshmi [facility] COMPREHENSIVE METABOLIC PANEL 2019-09-05 23:53:00 Arthur Martins [facility] LIPASE 2019-09-05 23:53:00 Lakshmi [facility] ALCOHOL, MEDICAL USE ONLY 2019-09-05 23:53:00 Lakshmi [facility] SALICYLATE 2019-09-05 23:53:00 Lakshmi [facility] LAMOTRIGINE-LAMICTAL 2019-09-05 23:53:00 Lakshmi [facility] CBC 2019-09-05 23:53:00 Lakshmi [facility] TEST 2019-09-05 23:43:00 Lakshmi [facility] URINE DRUG SCREEN 2019-09-05 23:43:00 Lakshmi [facility] Dilatation and curettage<sup>1</sup> [facility] Plan of Care Planned Activity Planned Date Details Comments Source Future Scheduled Test 2019-07-17 00:00:00 Screening for adelia gnant neoplasm of cervix (procedure) [code = 137480276] [facility] Instructions Suicidal Ideation [facility] Instructions Alcohol Abuse [facility] Instructions Alcohol Intoxication [facility] Encounters Start Date/Time End Date/Time Encounter Type Admission Type Attendi [facility] Care Department Encounter ID Source 2019-11-08 20:18:00 2019-11-09 14:35:00 Emergency Keven lopez, Haily Garces [facility] ([facility]) [id number] 2019-10-27 09:23:00 2019-10-28 04:23:00 Departed Emergency Room [address] [facility] [place] [id number] [facility] 2019-10-22 17:25:00 2019-10-23 03:40:00 Emergency Sara Camacho [facility] ([facility]) [id number] 2019-09-14 22:34:09 2019-09-15 19:28:00 Emergency C Shaka lopez, [facility] ([facility]) [id number] 2019-08-29 00:00:00 2019-08-29 00:00:00 Orders Only D octor Unassigned, [place] [facility] [id number] 2019-08-13 00:00:00 2019-08-13 00:00:00 Transition of Care Tiffany Coyle [id number] 2019-08-06 19:30:27 2019-08-10 14:33:00 Hospital Encounter Serjio Henley Emran [facility] ([facility]) [id number] 2019-01-15 00:00:00 2019-01-15 00:00:[address] [facility] [id number] [facility] 2018-12-09 00:42:39 2018-12-12 14:20:00 Outpatient Minerva Chaidez [facility] [id number] 2018-12-09 11:19:00 2018-12-09 03:46:00 Inpatient U [facility] MED [id number] [facility] 2018-12-05 08:54:00 2018-12-05 16:40:00 Outpatient DemarcoLuc sahni Cooper [facility] [id number] 2018-12-05 08:54:00 2018-12-05 08:54:00 Emergency E [facility] [id number] [facility] 2018-11-08 00:00:00 2018-11-08 00:00:[address] [facility] [id number] [facility] 2018-10-23 13:22:20 2018-10-23 13:22:[address] [facility] [id number] [facility] 2018 23:59:00 2018-10-18 08:57:00 Outpatient Conner Miles [facility] [id number] 2018 23:59:00 2018 23:59:00 Emergency E [facility] [id number] [facility] 2018-10-12 00:00:00 2018-10-12 00:00:[address] [facility] [id number] [facility] 2018-09-29 07:51:22 2018-09-29 07:51:[address] [facility] [id number] [facility] 2018-09-29 02:25:07 2018-09-29 02:25:07 Emergency [facility] [id number] [facility] 2018-09-24 22:28:00 2018-09-25 03:21:00 Outpatient Danish Caruso [facility] [id number] 2018-09-24 22:28:00 2018-09-24 22:28:00 Emergency E [facility] [id number] [facility] 2018-09-21 13:06:16 2018-09-21 13:06:[address] [facility] [id number] [facility] 2018-09-09 01:47:00 2018-09-09 08:22:00 Outpatient Roopa Beard [facility] [id number] 2018-09-09 01:47:00 2018-09-09 01:47:00 Emergency E [facility] [id number] [facility] 2018-09-06 11:00:00 2018-09-06 11:00:00 Appointment; MARIETTA BARRAZA M.D. BHALWAL, ASHA, M.D. [facility] [id number] [facility] 2018-08-28 00:00:00 2018-08-28 00:00:[address] [facility] [id number] [facility] 2018-08-23 19:03:20 2018-08-24 00:48:00 Outpatient Avis Knowles [facility] [id number] 2018-08-23 19:03:00 2018-08-23 19:03:00 Emergency E [facility] [id number] [facility] 2018-08-09 09:30:00 2018-08-09 09:30:00 Appointment; MARIETTA BARRAZA M.D. BHALWAL, ASHA, M.D. [facility] [id number] [facility] 2018-08-01 20:04:18 2018-08-02 14:45:00 Outpatient Diamond Hunter [facility] [id number] 2018-08-01 20:04:00 2018-08-01 20:04:00 Emergency E [facility] [id number] [facility] 2018-07-30 16:05:09 2018-07-31 08:00:00 Outpatient Joe Celeste [facility] [id number] 2018-07-30 16:05:00 2018-07-30 16:05:00 Emergency E [facility] [id number] [facility] 2018-07-26 15:14:00 2018-07-27 10:33:00 Outpatient Marietta Barraza [facility]ags[facility] [id number] 2018-07-26 15:14:00 2018-07-26 15:14:00 [facility] 2018-07-26 11:30:00 2018-07-26 11:30:00 Appointment; NOLAN WHARTON M .D. KATZ, ALLAN, M.D. [facility] [id number] [facility] 2018-07-26 11:30:00 2018-07-26 11:30:00 Appointment; MARIETTA BARRAZA M.D. BHALWAL, ASHA, M.D. [facility] UTP [id number] [facility] 2018-07-19 09:00:00 2018-07-19 09:00:00 Appointment; MARIETTA BARRAZA M.D. BHALWAL, ASHA, M.D. [facility] Staff Midwife [id number] [facility] 2018-07-13 05:56:52 2018-07-13 08:20:00 Outpatient W frank [facility] M[facility] [id number] 2018-07-13 05:56:00 2018-07-13 05:56:00 Emergency E [facility] [id number] [facility] 2018-06-26 14:27:28 2018-06-26 14:27:[address] [facility] [id number] [facility] 2018-06-26 13:36:30 2018-06-26 13:36:[address] [facility] [id number] [facility] 2018-06-12 16:00:00 2018-06-12 23:59:00 Outpatient Sundeep Rivers [id number] 2018-06-01 00:00:00 2018-06-01 00:00:[address] [facility] [id number] [facility] 2018-05-31 10:17:01 2018-05-31 10:17:[address] [facility] [id number] [facility] 2018-05-11 00:00:00 2018-05-11 00:00:[address] [facility] [id number] [facility] 2018-05-11 00:00:00 2018-05-11 00:00:[address] [facility] [id number] [facility] 2018-05-11 00:00:00 2018-05-11 00:00:[address] [facility] [id number] [facility] 2018-05-05 00:00:00 2018-05-05 00:00:[address] 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 [id number] [facility] 2018-05-02 00:00:00 2018-05-02 00:00:[address] [facility] [id number] [facility] 2018-04-27 00:00:00 2018-04-27 00:00:[address] [facility] [id number] [facility] 2018-04-27 00:00:00 2018-04-27 00:00:[address] [facility] [id number] [facility] 2018-04-24 00:00:00 2018-04-24 00:00:[address] [facility] [id number] [facility] 2018-04-18 00:00:00 2018-04-18 00:00:[address] [facility] [id number] [facility] 2018-04-13 08:43:04 2018-04-13 08:43:[address] [facility] [id number] [facility] 2018-04-13 00:00:00 2018-04-13 00:00:[address] [facility] [id number] [facility] 2018-04-11 14:47:42 2018-04-11 14:47:[address] [facility] [id number] [facility] 2018-04-06 00:00:00 2018-04-06 00:00:[address] [facility] [id number] [facility] 2018-04-03 15:51:27 2018-04-03 15:51:[address] [facility] [id number] [facility] 2018-03-16 00:00:00 2018-03-16 00:00:[address] [facility] [id number] [facility] 2018-03-13 09:03:44 2018-03-13 09:03:[address] [facility] [id number] [facility] 2018-03-09 15:32:13 2018-03-09 15:32:[address] [facility] [id number] [facility] 2018-01-17 00:00:00 2018-01-17 00:00:[address] [facility] [id number] [facility] 2018-01-16 00:00:00 2018-01-16 00:00:[address] [facility] [id number] [facility] 2018-01-13 00:00:00 2018-01-13 00:00:[address] [facility] [id number] [facility] 2018-01-02 12:16:17 2018-01-02 12:16:17 Emergency [facility] [id number] [facility] 2018-01-01 15:33:01 2018-01-01 15:33:01 Emergency [facility] [id number] [facility] 2017-12-14 00:00:00 2017-12-14 00:00:[address] [facility] [id number] [facility] 2017-11-24 00:00:00 2017-11-24 00:00:[address] [facility] [id number] [facility] 2017-11-18 10:31:22 2017-11-18 10:31:[address] [facility] [id number] [facility] 2017-11-10 00:00:00 2017-11-10 00:00:[address] [facility] [id number] [facility] 2017-10-31 02:30:00 2017-11-01 17:35:00 Outpatient Danielle Brown [facility] [id number] 2017-11-01 00:00:00 2017-11-01 00:00:[address] [facility] [id number] [facility] 2017-10-07 00:00:00 2017-10-07 00:00:[address] [facility] [id number] [facility] 2017-09-24 01:27:25 2017-09-24 01:27:[address] [facility] [id number] [facility] 2017-09-24 00:03:44 2017-09-24 00:03:44 Outpatient [facility] [id number] [facility] 2017-09-09 00:00:00 2017-09-09 00:00:[address] [facility] [id number] [facility] 2017-09-08 17:11:30 2017-09-08 17:11:[address] [facility] [id number] [facility] 2017-08-26 10:56:32 2017-08-26 10:56:[address] [facility] [id number] [facility] 2017-08-23 15:10:26 2017-08-23 15:10:[address] [facility] [id number] [facility] 2017-08-17 10:39:54 2017-08-17 10:39:[address] [facility] [id number] [facility] 2017-08-17 08:37:37 2017-08-17 08:37:[address] [facility] [id number] [facility] 2017-08-08 12:37:24 2017-08-08 12:37:24 Emergency [facility] [id number] [facility] 2017-08-07 15:23:00 2017-08-07 21:50:00 Outpatient KylerKeturah [facility] [id number] 2017-07-25 00:00:00 2017-07-25 00:00:[address] [facility] [id number] [facility] 2017-07-19 00:00:00 2017-07-19 00:00:[address] [facility] [id number] [facility] 2017-07-19 00:00:00 2017-07-19 00:00:[address] [facility] [id number] [facility] 2017-07-15 00:00:00 2017-07-15 00:00:[address] [facility] [id number] [facility] 2017-07-13 00:00:00 2017-07-13 00:00:[address] [facility] [id number] [facility] 2017-07-13 00:00:00 2017-07-13 00:00:[address] [facility] [id number] [facility] 2017-07-13 00:00:00 2017-07-13 00:00:[address] [facility] [id number] [facility] 2017-07-08 00:00:00 2017-07-08 00:00:[address] [facility] [id number] [facility] 2017-07-04 00:00:00 2017-07-04 00:00:[address] [facility] [id number] [facility] 2017-06-24 00:00:00 2017-06-24 00:00:[address] [facility] [id number] [facility] 2017-06-24 00:00:00 2017-06-24 00:00:[address] [facility] [id number] [facility] 2017-06-18 21:12:00 2017-06-18 23:36:00 Departed Emergency Room ER SHAKA MACK [facility] [id number] [facility] 2017-06-16 00:00:00 2017-06-16 00:00:[address] [facility] [id number] [facility] 2017-06-15 00:00:00 2017-06-15 00:00:[address] [facility] [id number] [facility] 2017-06-08 00:00:00 2017-06-08 00:00:[address] [facility] [id number] [facility] 2017-06-02 00:00:00 2017-06-02 00:00:[address] [facility] [id number] [facility] 2017-05-25 10:00:29 2017-05-25 10:00:[address] [facility] [id number] [facility] 2017-05-25 00:00:00 2017-05-25 00:00:[address] [facility] [id number] [facility] 2017-05-25 00:00:00 2017-05-25 00:00:[address] [facility] [id number] [facility] 2017-05-24 00:00:00 2017-05-24 00:00:[address] [facility] [id number] [facility] 2017-05-18 00:00:00 2017-05-18 00:00:[address] [facility] [id number] [facility] 2017-05-17 10:58:45 2017-05-17 10:58:[address] [facility] [id number] [facility] 2017-05-17 08:19:46 2017-05-17 08:19:[address] [facility] [id number] [facility] 2017-05-11 00:00:00 2017-05-11 00:00:[address] [facility] [id number] [facility] 2017-05-05 12:11:36 2017-05-05 12:11:36 Outpatient [facility] [id number] [facility] 2017-05-05 10:30:09 2017-05-05 10:30:09 Outpatient [facility] [id number] [facility] 2017-04-25 09:44:48 2017-04-25 09:44:48 Outpatient [facility] [id number] [facility] 2017-04-25 00:00:00 2017-04-25 00:00:[address] [facility] [id number] [facility] 2017-04-22 00:00:00 2017-04-22 00:00:00 Outpatient [facility] [id number] [facility] 2017-04-19 09:44:58 2017-04-19 09:44:58 Emergency [facility] [id number] [facility] 2017-04-19 07:49:09 2017-04-19 07:49:[address] [facility] [id number] [facility] 2017-04-19 00:00:00 2017-04-19 00:00:[address] [facility] [id number] [facility] 2017-04-18 15:00:50 2017-04-18 15:00:[address] [facility] [id number] [facility] 2017-04-18 00:00:00 2017-04-18 00:00:[address] [facility] [id number] [facility] 2017-04-15 15:48:30 2017-04-15 15:48:[address] [facility] [id number] [facility] 2017-04-14 09:40:58 2017-04-14 09:40:[address] [facility] [id number] [facility] 2017-04-06 00:00:00 2017-04-06 00:00:[address] [facility] [id number] [facility] 2017-03-25 09:34:34 2017-03-25 09:34:[address] [facility] [id number] [facility] 2017-03-21 19:50:55 2017-03-21 19:50:[address] [facility] [id number] [facility] 2017-03-21 19:31:52 2017-03-21 19:31:[address] [facility] [id number] [facility] 2017-03-21 17:41:44 2017-03-21 17:41:44 Emergency [facility] [id number] [facility] 2017-03-09 09:29:04 2017-03-09 09:29:[address] [facility] [id number] [facility] 2017-03-03 09:41:43 2017-03-03 09:41:[address] [facility] [id number] [facility] 2017-03-03 08:41:00 2017-03-03 08:41:00 Emergency [facility] [id number] [facility] 2017-02-14 10:56:29 2017-02-14 10:56:[address] [facility] [id number] [facility] 2017-02-12 09:20:00 2017-02-12 09:56:00 Departed Emergency Room [id number] [facility] 2017-02-03 15:46:29 2017-02-03 15:46:[address] [facility] [id number] [facility] 2017-02-03 14:28:55 2017-02-03 14:28:[address] [facility] [id number] [facility] 2017-02-01 00:00:00 2017-02-01 00:00:[address] [facility] [id number] [facility] 2017-01-31 00:00:00 2017-01-31 00:00:[address] [facility] [id number] [facility] 2017-01-20 08:35:05 2017-01-20 08:35:[address] [facility] [id number] [facility] 2017-01-10 21:32:00 2017-01-11 04:51:00 Departed Emergency Room ER JENN MCKEON [facility] [id number] [facility] 2016-12-31 10:40:05 2016-12-31 10:40:[address] [facility] [id number] [facility] 2016-12-27 10:22:29 2016-12-27 10:22:[address] [facility] [id number] [facility] 2016-12-27 00:00:00 2016-12-27 00:00:[address] [facility] [id number] [facility] 2016-12-13 00:00:00 2016-12-13 00:00:[address] [facility] [id number] [facility] 2016-12-06 11:56:04 2016-12-06 11:56:[address] [facility] [id number] [facility] 2016-12-06 11:39:08 2016-12-06 11:39:[address] [facility] [id number] [facility] 2016-11-25 00:00:00 2016-11-25 00:00:[address] [facility] [id number] [facility] 2016-11-22 13:03:39 2016-11-22 13:03:[address] [facility] [id number] [facility] 2016-11-17 13:51:48 2016-11-17 13:51:[address] [facility] [id number] [facility] 2016-11-17 13:01:42 2016-11-17 13:01:[address] [facility] [id number] [facility] 2016-11-16 08:03:59 2016-11-16 08:03:[address] [facility] [id number] [facility] 2016-11-15 10:20:10 2016-11-15 10:20:[address] [facility] [id number] [facility] 2016-11-03 00:00:00 2016-11-03 00:00:[address] [facility] [id number] [facility] 2016-11-02 18:55:37 2016-11-02 18:55:37 Emergency [facility] [id number] [facility] 2016-09-17 19:08:40 2016-09-17 19:08:[address] [facility] [id number] [facility] 2016-09-16 10:39:26 2016-09-16 10:39:[address] [facility] [id number] [facility] 2016-09-08 00:00:00 2016-09-08 00:00:[address] [facility] [id number] [facility] 2016-08-31 00:00:00 2016-08-31 00:00:[address] [facility] [id number] [facility] 2016-08-20 00:00:00 2016-08-20 00:00:[address] [facility] [id number] [facility] 2016-08-13 10:55:00 2016-08-13 10:55:[address] [facility] [id number] [facility] 2016-08-13 09:07:42 2016-08-13 09:07:[address] [facility] [id number] [facility] 2016-07-29 12:16:51 2016-07-29 12:16:[address] [facility] [id number] [facility] 2016-07-29 11:08:31 2016-07-29 11:08:[address] [facility] [id number] [facility] 2016-07-29 00:00:00 2016-07-29 00:00:[address] [facility] [id number] [facility] 2016-07-29 00:00:00 2016-07-29 00:00:[address] [facility] [id number] [facility] 2016-07-22 12:52:01 2016-07-22 12:52:[address] [facility] [id number] [facility] Results Test Description Test Time Test Comments Results Result Comments Source ACETAMINOPHEN 2019-11-18 09:27:00 Test Item ACETAMINOPHEN (test code = ACET) < 10 mcg/mL 0-30 N A RANGE OF 10-30 UG/ML IS A THERAPEUTIC RANGE. TOXIC CONCENTRATIONS: >150 UG/ML AFTER 4 HOURS OF INGESTION > 50 UG/ML AFTER 12 HOURS OF INGESTION [id number] 09:27:00* Test Item Value Reference Range Interpretation Comments SALICYLATE (test code = CHRIS) 1.0 mg/dL 2.8-20.0 L - CT HEAD/BRAIN W/O [id number] 09:12:00 Name: MANDY ASCENCIO [facility] : 1985 Age/S: 34 / F [address] [facility] Unit #: [id number] Loc: [place], [place] [address] Phys: Kelly Bansal MD Acct: [id number] Dis Date: Status: REG ER PHONE #: [phone] Exam Date: 11/18/2019 0853 FAX #: [phone] Reason: fall EXAMS: CPT CODE: [id number] CT HEAD/BRAIN W/O CONT 65916 HISTORY: Seizure, status post fall TECHNIQUE: Noncontrast [...] (911) [email or web address] Orig Print D/T: S: 11/18/2019 (0605) PAGE 1 Signed Report COMPREHENSIVE METABOLIC PANEL [...] ALKP) 211 U/L 38-126 H HCG SERUM [id number] 05:09:00* Test Item Value Reference Range Interpretation Comments HCG SERUM QUAL (test code = HCGQL) NEGATIVE NEGATIVE This HCGQL test is NOT applicable for MALE patients.Check with nurse about probable order error.If Tumor Marker Test needed, nurse should order test "HCGTU"(Test #550.42265) [id number] 05:09:00* Test Item Value Reference Range Interpretation Comments TROPONIN-I (test code = TROPI) <0.015 ng/mL 0.00-0.056 N [id number] 05:09:00* Test Item Value Reference Range Interpretation [...] CK) 157 U/L 26-192 N COMPREHENSIVE METABOLIC [id number] 05:03:00* Test Item Value Reference Range Interpretation [...] code = ALKP) IUnit/L 45-117 HCG SERUM [id number] 05:03:00* Test Item Value Reference Range Interpretation Comments HCG SERUM QUAL (test code = HCGQL) NEGATIVE NEGATIVE This HCGQL test is NOT applicable for MALE patients.Check with nurse about probable order error.If Tumor Marker Test needed, nurse should order test "HCGTU"(Test #550.53142) [id number] 05:03:00* Test Item Value Reference Range Interpretation Comments TROPONIN-I (test code = TROPI) ng/mL 0-0.045 [id number] 05:03:00* Test Item Value Reference Range Interpretation Comments ALCOHOL (test code = ALC) mg/dL 0.0-3.0 COMPREHENSIVE METABOLIC [id number] 04:59:00* Test Item Value Reference Range Interpretation [...] code = ALKP) IUnit/L 45-117 HCG SERUM [id number] 04:59:00* Test Item Value Reference Range Interpretation Comments HCG SERUM QUAL (test code = HCGQL) NEGATIVE [id number] 04:59:00* Test Item Value Reference Range Interpretation Comments TROPONIN-I (test code = TROPI) ng/mL 0-0.045 [id number] 04:59:00* Test Item Value Reference Range Interpretation Comments ALCOHOL (test code = ALC) mg/dL 0.0-3.0 - CT HEAD/BRAIN W/O [id number] 04:38:00 Name: MANDY ASCENCIO [facility] : 1985 Age/S: 34 / F [address] [facility] Unit #: [id number] Loc: [place] [address] Phys: Karthikeyan Soliman MD Acct: [id number] Dis Date: Status: PRE ER PHONE #: [phone] Exam Date: 11/18/2019 0427 FAX #: [phone] Reason: seizure, fall EXAMS: CPT CODE: [id number] CT HEAD/BRAIN W/O CONT 08519 EXAM: - CT HEAD/BRAIN W/O CONT HISTORY: [...] 043) [email or web address] Orig Print D/T: S: 11/18/2019 (7977) PAGE 1 Signed Report URINALYSIS [id number] 04:29:00* Test Item Value Reference Range Interpretation [...] BACU) FEW per HPF NONE URINALYSIS W/O [id number] 04:29:00* Test Item Value Reference Range Interpretation Comments UA MICROSCOPIC NEEDED? (test code = UAMICRO) YES DRUGS OF ABUSE SCREEN [id number] 04:29:00* Test Item Value Reference Range Interpretation [...] = PHENCURN) NEGATIVE NEGATIV E URINALYSIS W/O [id number] 04:28:00* Test Item Value Reference Range Interpretation [...] code = UAMICRO) DRUGS OF ABUSE SCREEN [id number] 04:28:00* Test Item Value Reference Range Interpretation [...] code = PHENCURN) NEGATIVE NEGATIV E URINALYSIS [id number] 04:28:00* Test Item Value Reference Range Interpretation [...] = BACU) per HPF NONE URINALYSIS W/O [id number] 04:28:00* Test Item Value Reference Range Interpretation Comments UA MICROSCOPIC NEEDED? (test code = UAMICRO) YES DRUGS OF ABUSE SCREEN [id number] 04:28:00* Test Item Value Reference Range Interpretation [...] code = PHENCURN) NEGATIVE NEGATIV E URINALYSIS [id number] 04:28:00* Test Item Value Reference Range Interpretation [...] = BACU) per HPF NONE URINALYSIS W/O [id number] 04:28:00* Test Item Value Reference Range Interpretation Comments UA MICROSCOPIC NEEDED? (test code = UAMICRO) YES DRUGS OF ABUSE SCREEN [id number] 04:28:00* Test Item Value Reference Range Interpretation [...] = PHENCURN) NEGATIVE NEGATIV E CBC W/AUTO [id number] 04:19:00* Test Item Value Reference Range Interpretation [...] BA#) 0.04 K/mm3 0.0-0.2 N BASIC METABOLIC [id number] 04:45:00* Test Item Value Reference Range Interpretation [...] CA) 7.3 mg/dL 8.5-10.1 L HEPATIC FUNCTION [id number] 04:45:00* Test Item Value Reference Range Interpretation [...] due to change in reagent. HCG SERUM [id number] 04:45:00* Test Item Value Reference Range Interpretation Comments HCG SERUM QUAL (test code = HCGQL) NEGATIVE NEGATIVE This HCGQL test is NOT applicable for MALE patients.Check with nurse about probable order error.If Tumor Marker Test needed, nurse should order test "HCGTU"(Test #550.02525) [id number] 04:45:00* Test Item Value Reference Range Interpretation Comments ACETAMINOPHEN (test code = ACET) < 10 mcg/mL 10-30 L A RANGE OF 10-30 mcg/mL IS A THERAPEUTIC RANGE. TOXIC CONCENTRATIONS: >150 mcg/mL AT 4 HOURS AFTER INGESTION >= 50 mcg/mL AT 12 HOURS AFTER INGESTION [id number] 04:45:00* Test Item Value Reference Range Interpretation Comments SALICYLATE (test code = CHRIS) < 1.7 mg/dL 2.8-20.0 L [id number] 04:45:00* Test Item Value Reference Range Interpretation Comments ALCOHOL (test code = ALC) 371 mg/dL 0.0-3.0 H -- INTERPRETIVE DATA NOTE: POSITIVE SCREENING RESULTS SHOULD BE CONSIDERED PRESUMPTIVE.WHEN COLLECTED FOR MEDICAL PURPOSES ONLY. SPECIMEN WILL NOTBE COLLECTED BY CHAIN OF CUSTODY.IF A CONFIRMATION OF POSITIVE RESULTS IS DESIRED, ACONFIRMATION TEST MUST BE REQUESTED BY THE PHYSICIAN AT ANADDITIONAL CHARGE TO THE PATIENT. URINALYSIS [id number] 04:16:00* Test Item Value Reference Range Interpretation [...] Urine Source? Clean CatchDRUGS OF ABUSE SCREEN [id number] 04:16:00* Test Item Value Reference Range Interpretation [...] <300 ng/mL Urine Source? Clean CatchBASIC METABOLIC [id number] 03:39:00* Test Item Value Reference Range Interpretation [...] CA) 7.3 mg/dL 8.5-10.1 L HEPATIC FUNCTION [id number] 03:39:00* Test Item Value Reference Range Interpretation [...] due to change in reagent. HCG SERUM [id number] 03:39:00* Test Item Value Reference Range Interpretation Comments HCG SERUM QUAL (test code = HCGQL) NEGATIVE NEGATIVE This HCGQL test is NOT applicable for MALE patients.Check with nurse about probable order error.If Tumor Marker Test needed, nurse should order test "HCGTU"(Test #550.36906) [id number] 03:39:00* Test Item Value Reference Range Interpretation Comments ACETAMINOPHEN (test code = ACET) < 10 mcg/mL 10-30 L A RANGE OF 10-30 mcg/mL IS A THERAPEUTIC RANGE. TOXIC CONCENTRATIONS: >150 mcg/mL AT 4 HOURS AFTER INGESTION >= 50 mcg/mL AT 12 HOURS AFTER INGESTION [id number] 03:39:00* Test Item Value Reference Range Interpretation Comments SALICYLATE (test code = CHRIS) < 1.7 mg/dL 2.8-20.0 L [id number] 03:39:00* Test Item Value Reference Range Interpretation Comments ALCOHOL (test code = ALC) mg/dL 0-3 BASIC METABOLIC [id number] 03:34:00* Test Item Value Reference Range Interpretation [...] code = CA) mg/dL 8.5-10.1 HEPATIC FUNCTION [id number] 03:34:00* Test Item Value Reference Range Interpretation [...] code = ALKP) IUnit/L 45-117 HCG SERUM [id number] 03:34:00* Test Item Value Reference Range Interpretation Comments HCG SERUM QUAL (test code = HCGQL) NEGATIVE NEGATIVE This HCGQL test is NOT applicable for MALE patients.Check with nurse about probable order error.If Tumor Marker Test needed, nurse should order test "HCGTU"(Test #550.28997) [id number] 03:34:00* Test Item Value Reference Range Interpretation Comments ACETAMINOPHEN (test code = ACET) mcg/mL 10-30 [id number] 03:34:00* Test Item Value Reference Range Interpretation Comments SALICYLATE (test code = CHRIS) mg/dL 2.8-20.0 [id number] 03:34:00* Test Item Value Reference Range Interpretation Comments ALCOHOL (test code = ALC) mg/dL 0-3 BASIC METABOLIC [id number] 03:31:00* Test Item Value Reference Range Interpretation [...] code = CA) mg/dL 8.5-10.1 HEPATIC FUNCTION [id number] 03:31:00* Test Item Value Reference Range Interpretation [...] code = ALKP) IUnit/L 45-117 HCG SERUM [id number] 03:31:00* Test Item Value Reference Range Interpretation Comments HCG SERUM QUAL (test code = HCGQL) NEGATIVE [id number] 03:31:00* Test Item Value Reference Range Interpretation Comments ACETAMINOPHEN (test code = ACET) mcg/mL 10-30 [id number] 03:31:00* Test Item Value Reference Range Interpretation Comments SALICYLATE (test code = CHRIS) mg/dL 2.8-20.0 [id number] 03:31:00* Test Item Value Reference Range Interpretation Comments ALCOHOL (test code = ALC) mg/dL 0-3 URINALYSIS [id number] 03:31:00* Test Item Value Reference Range Interpretation [...] Urine Source? Clean CatchDRUGS OF ABUSE SCREEN [id number] 03:31:00* Test Item Value Reference Range Interpretation [...] <300 ng/mL Urine Source? Clean CatchCBC W/O [id number] 03:29:00* Test Item Value Reference Range Interpretation [...] = MPV) 8.9 fL 6.7-11.0 N URINALYSIS [id number] 03:25:00* Test Item Value Reference Range Interpretation [...] Urine Source? Clean CatchDRUGS OF ABUSE SCREEN [id number] 03:25:00* Test Item Value Reference Range Interpretation [...] (test code = 5643-2) 84.0 0.0-10.0 [facility] [id number] 12:05:00 [facility] [place] [address] Patient Name: MANDY ASCENCIO MR #: [id number] : 1985 Age/Sex: 34/F Req #: [id number] Adm Physician: Ordered by: JENN MCKEON MD Report #: [id number] Location: ER Room/Bed: Procedure: [id number] CT/CT BRAIN WO Ex am Date: 10/27/19 [...] 12:08 PM Dictated By: ORLANDO JANE MD 120 T ranscribed By: AGNIESZKA on 10/27/19 1203 COPY TO: JENN MCKEON MD Blood leukocytes automated count (number/volume)2019-10-27 09:58:00* Test Item Value Reference Range Interpretation Comments White Blood Count (test code = 6690-2) 6.47 4.8-10.8 [facility] Center[facility] erythrocytes automated count (number/volume)2019-10-27 09:58:00* Test Item Value Reference Range Interpretation Comments Red Blood Count (test code = 789-8) 4.17 3.6-5.1 [facility] CenterBlood hemoglobin measurement (moles/volume)2019-10-27 09:58:00* Test Item Value Reference Range Interpretation Comments Hemoglobin (test code = 93606-0) 13.3 12.0-16.0 [facility] CenterAutomated blood hematocrit (volume fraction)2019-10-27 09:58:00* Test Item Value Reference Range Interpretation Comments Hematocrit (test code = 4544-3) 39.2 34.2-44.1 [facility] CenterAutomated erythrocyte mean corpuscular vqazgg8640-98-57 09:58:00* Test Item Value Reference Range Interpretation Comments Mean Corpuscular Volume (test code = 787-2) 94.0 81-99 [facility] CenterAutomated erythrocyte mean corpuscular hemoglobin (mass per erythrocyte)2019-10-27 09:58:00* Test Item Value Reference Range Interpretation Comments Mean Corpuscular Hemoglobin (test code = 785-6) 31.9 28-32 [facility] CenterAutomated erythrocyte mean corpuscular hemoglobin concentration measurement (mass/volume)2019-10-27 09:58:00* Test Item Value Reference Range Interpretation Comments Mean Corpuscular Hemoglobin Concent (test code = 786-4) 33.9 31-35 [facility] CenterRDW XniSr-Bmd9228-85-22 09:58:00* Test Item Value Reference Range Interpretation Comments Red Cell Distribution Width (test code = 12198-5) 14.2 11.7 -14.4 [facility] CenterAutomated blood platelet count (count/volume)2019-10-27 09:58:00* Test Item Value Reference Range Interpretation Comments Platelet Count (test code = 777-3) 173 140-360 [facility] CenterAutomated blood segmented neutrophil count as percentage of total gzcnjhtubk4342-04-76 09:58:00* Test Item Value Reference Range Interpretation Comments Neutrophils (%) (Auto) (test code = 74855-2) 33.8 38.7-80.0 [facility] CenterAutomated blood lymphocyte count as percentage ot total nqscyommui8338-14-06 09:58:00* Test Item Value Reference Range Interpretation Comments Lymphocytes (%) (Auto) (test code = 736-9) 53.0 18.0-39.1 [facility] CenterAutomated blood monocyte count as percentage of total ilbxnbcgtw0641-32-70 09:58:00* Test Item Value Reference Range Interpretation Comments Monocytes (%) (Auto) (test code = 5905-5) 11.1 4.4-11.3 [facility] CenterAutomated blood eosinophil count as percentage of total cqglodwyyd3581-45-68 09:58:00* Test Item Value Reference Range Interpretation Comments Eosinophils (%) (Auto) (test code = 713-8) 0.9 0.0-6.0 [facility] CenterAutomated blood basophil count as percentage of total ygroifcsgm2588-45-55 09:58:00* Test Item Value Reference Range Interpretation Comments Basophils (%) (Auto) (test code = 706-2) 0.9 0.0-1.0 [facility] CenterFluoroscopic procedure less than one hour gmzlhoum4043-98-89 09:58:00* Test Item Value Reference Range Interpretation Comments IM GRANULOCYTES % (test code = IM GRANULOCYTES %) 0.3 0.0- 1.0 [facility] CenterAutomated blood neutrophil count 2019-10-27 09:58:00* Test Item Value Reference Range Interpretation Comments Neutrophils # (Auto) (test code = 751-8) 2.2 2.1-6.9 [facility] CenterBlood lymphocytes count (number/volume) 2019-10-27 09:58:00* Test Item Value Reference Range Interpretation Comments Lymphocytes # (Auto) (test code = 21502-9) 3.4 1.0-3.2 [facility] CenterBlood monocytes automated count (number/volume)2019-10-27 09:58:00* Test Item Value Reference Range Interpretation Comments Monocytes # (Auto) (test code = 742-7) 0.7 0.2-0.8 [facility] CenterAutomated blood eosinophil count 2019-10-27 09:58:00* Test Item Value Reference Range Interpretation Comments Eosinophils # (Auto) (test code = 711-2) 0.1 0.0-0.4 [facility] CenterAutomated blood basophil count (count/volume)2019-10-27 09:58:00* Test Item Value Reference Range Interpretation Comments Basophils # (Auto) (test code = 704-7) 0.1 0.0-0.1 [facility] CenterFluoroscopic procedure less than one hour aqzrvqyv8202-45-14 09:58:00* Test Item Value Reference Range Interpretation Comments Absolute Immature Granulocyte (auto (chelsi t code = Absolute Immature Granulocyte (auto) 0.02 0-0.1 [facility] CenterProthrombin time (PT) in platelet poor plasma by coagulation isskr6421-22-20 09:58:00* Test Item Value Reference Range Interpretation Comments Prothrombin Time (test code = 5902-2) 13.9 11.9-14.5 [facility] CenterINR in Platelet poor plasma by Coagulation swljp7021-12-81 09:58:00* Test Item Value Reference Range Interpretation Comments Prothromb Time International Ratio (test code = 6301-6) 1.02 Oral Anticoagulant Therapy INR Values:1. Low Intensity Therapy 1.5 - 2.02 . Moderate Intensity Therapy 2.0 - 3.03. High Intensity Therapy(1) 2.5 - 3. 54. High Intensity Therapy(2) 3.0 - 4.05. Panic Value INR > 5.0 [facility] CenterActivated partial thromboplastin time (aPTT) in platelet poor plasma by coagulation jwpdq8456-44-95 09:58:00* Test Item Value Reference Range Interpretation Comments Activated Partial Thromboplast Time (test code = 54502-7) 26.9 23.8-35.5 [facility] CenterUrine color szjgiyyfcpbvm7344-64-63 09:58:00* Test Item Value Reference Range Interpretation Comments Urine Color (test code = 5778-6) YELLOW YELLOW [facility] CenterUrine rgvkdxu1640-41-11 09:58:00* Test Item Value Reference Range Interpretation Comments Urine Clarity (test code = 81403-1) CLEAR CLEAR [facility] Tylerpecific gravity of Urine by Test strip 2019-10-27 09:58:00* Test Item Value Reference Range Interpretation Comments Urine Specific [place] (test code = 5811-5) 1.015 1.010-1.02 5 [facility] CenterUrine pH measurement by automated test mlwai7560-89-77 09:58:00* Test Item Value Reference Range Interpretation Comments Urine pH (test code = 16594-3) 7 5-7 [facility] CenterUrine leukocyte esterase detection by wvojayfk3335-75-35 09:58:00* Test Item Value Reference Range Interpretation Comments Urine Leukocyte Esterase (test code = 5799-2) NEGATIVE NEGATIVE [facility] CenterUrine nitrite lykzyymlz0001-99-52 09:58:00* Test Item Value Reference Range Interpretation Comments Urine Nitrite (test code = 00323-3) NEGATIVE NEGATIVE [facility] CenterUrine protein measurement by test strip (mass/volume)2019-10-27 09:58:00* Test Item Value Reference Range Interpretation Comments Urine Protein (test code = 5804-0) NEGATIVE NEGATIVE [facility] CenterUrine glucose kjekauxqa9237-11-15 09:58:00* Test Item Value Reference Range Interpretation Comments Urine Glucose (UA) (test code = 2349-9) NEGATIVE NEGATIVE [facility] CenterUrine ketones detection by automated test ovzhn7299-60-12 09:58:00* Test Item Value Reference Range Interpretation Comments Urine Ketones (test code = 74652-0) NEGATIVE NEGATIVE [facility] CenterUrine opiates screening jfhr0243-69-10 09:58:00* Test Item Value Reference Range Interpretation Comments Urine Opiates Screen (test code = 65065-4) NEGATIVE NEGATIVE ALL TESTS PERFORMED MANUALLY ON [employer] TOX/SEE TESTCarl [facility]. Darnall Army Medical CenterBarbiturates screen, grdix9618-37-53 09:58:00* Test Item Value Reference Range Interpretation Comments Urine Barbiturates Screen (test code = 183646058) NEGATIVE NEGA TIVE [facility] CenterUrine phencyclidine detection by screening hqyliw0930-81-18 09:58:00* Test Item Value Reference Range Interpretation Comments Urine Phencyclidine Screen (test code = 60132-8) NEGATIVE NEGAT BEULAH [facility] CenterUrine amphetamines detection by screen method > 1000 ng/rX9720-26-98 09:58:00* Test Item Value Reference Range Interpretation Comments Urine Amphetamines Screen (test code = 02347-1) NEGATIVE NEGATI VE [facility] CenterFluoroscopic procedure less than one hour hxxhsryz4371-26-29 09:58:00* Test Item Value Reference Range Interpretation Comments Urine Methamphetamines Screen (test code = Urine Metha mphetamines Screen) NEGATIVE NEGATIVE [facility] CenterUrine benzodiazepines detection by screening ocppyl1073-25-97 09:58:00* Test Item Value Reference Range Interpretation Comments Urine Benzodiazepines Screen (test code = 25690-5) POSITIVE NEG ATIVE This test provides only a screen. Positive results should be repeated by a confi rmatory test.[facility] CenterUrine cocaine measurement (mass/volume)2019-10-27 09:58:00* Test Item Value Reference Range Interpretation Comments Urine Cocaine Screen (test code = 3398-5) NEGATIVE NEGATIVE [facility] CenterUrine cannabinoids detection by screening tknlcf0684-10-08 09:58:00* Test Item Value Reference Range Interpretation Comments Urine Cannabinoids Screen (test code = 07620-9) NEGATIVE NEGATI VE THESE RESULTS ARE FOR MEDICAL TREATMENT ONLYTHIS REPORT CONTAINS UNCONFIR MED SCREENING RESULTS*POSITIVE RESULTS WILL BE CONFIRMED BY REFERENCE LAB UPON R EQUEST CUT-OFFDRUG CLASS CONCENTRATION ng/mLAmphetamines 1000Methamphetamines 1000Cocaine 300Opiate 300Phencyc lidine 25Cannabinoid 50Barbiturates 300Benzodiazepine 300Methadone 300[facility] CenterUrine methadone kumtfz2501-34-63 09:58:00* Test Item Value Reference Range Interpretation Comments Urine Methadone Screen (test code = 86290-7) NEGATIVE NEGATIVE THESE RESULTS ARE FOR MEDICAL TREATMENT ONLYTHIS REPORT CONTAINS UNCONFIR MED SCREENING RESULTS*POSITIVE RESULTS WILL BE CONFIRMED BY REFERENCE LAB UPON R EQUEST CUT-OFFDRUG CLASS CONCENTRATION ng/mLAmphetamines 1000Methamphetamines 1000Cocaine Metabolite 300Opiate 300Phencyc lidine 25Cannabinoid 50Barbiturates 300Benzodiazepine 300Methadone 300[facility] DallasUrine urobilinogen measurement by test strip (mass/volume)2019-10-27 09:58:00* Test Item Value Reference Range Interpretation Comments Urine Urobilinogen (test code = 32571-8) 0.2 0.2-1 [facility] CenterUrine total bilirubin measurement (mass/volume)2019-10-27 09:58:00* Test Item Value Reference Range Interpretation Comments Urine Bilirubin (test code = 1978-6) NEGATIVE NEGATIVE [facility] CenterUrine erythrocytes wpvazvkod4169-15-33 09:58:00* Test Item Value Reference Range Interpretation Comments Urine Blood (test code = 78300-5) TRACE NEGATIVE [facility] CenterAutomated urine sediment leukocyte count by microscopy (number/high power field)2019-10-27 09:58:00* Test Item Value Reference Range Interpretation Comments Urine WBC (test code = 5821-4) 0-5 0-5 [facility] CenterErythrocytes detection in urine sediment by light bpuptkdozt1626-02-31 09:58:00* Test Item Value Reference Range Interpretation Comments Urine RBC (test code = 96927-2) 0-5 0-5 [facility] CenterBacteria detection in urine sediment by light juwqdwjlti1742-39-47 09:58:00* Test Item Value Reference Range Interpretation Comments Urine Bacteria (test code = 01012-2) FEW NONE [facility] CenterEpithelial cells detection in urine sediment by light qzlyamupib6914-63-52 09:58:00* Test Item Value Reference Range Interpretation Comments Urine Epithelial Cells (test code = 94626-8) FEW NONE [facility] CenterUrine human chorionic gonadotropin (hCG) nekxazttd3023-24-00 09:58:00* Test Item Value Reference Range Interpretation Comments Urine Test (test code = 2106-3) NEGATIVE NEGATIVE [facility] Tylererum or plasma sodium measurement (moles/volume)2019-10-27 09:58:00* Test Item Value Reference Range Interpretation Comments Sodium Level (test code = 2951-2) 139 136-145 [facility] Tylererum or plasma potassium measurement (moles/volume)2019-10-27 09:58:00* Test Item Value Reference Range Interpretation Comments Potassium Level (test code = 2823-3) 3.5 3.5-5.1 [facility]ylererum or plasma chloride measurement (moles/volume)2019-10-27 09:58:00* Test Item Value Reference Range Interpretation Comments Chloride Level (test code = 2075-0) 104 98-107 [facility] Tylererum or plasma carbon dioxide, total measurement (moles/volume)2019-10-27 09:58:00* Test Item Value Reference Range Interpretation Comments Carbon Dioxide Level (test code = 2028-9) 21 22-29 [facility]ylererum or plasma anion dwk3344-12-23 09:58:00* Test Item Value Reference Range Interpretation Comments Anion Gap (test code = 17915-1) 17.5 8-16 [facility]rerum or plasma urea nitrogen measurement (mass/volume)2019-10-27 09:58:00* Test Item Value Reference Range Interpretation Comments Blood Urea Nitrogen (test code = 3094-0) 8 7-26 [facility]rerum or plasma creatinine measurement (mass/volume)2019-10-27 09:58:00* Test Item Value Reference Range Interpretation Comments Creatinine (test code = 2160-0) 0.79 0.57-1.11 [facility] or plasma urea nitrogen/creatinine mass fnevy8686-10-84 09:58:00* Test Item Value Reference Range Interpretation Comments BUN/Creatinine Ratio (test code = 3097-3) 10 6-25 [facility] CenterEstimated glomerular filtration rate (GFR) difvxikzpksul1488-61-03 09:58:00* Test Item Value Reference Range Interpretation Comments Estimat Glomerular Filtration Rate (test code = 974433830) > 60 >60 Ranges were taken from the National Kidney Disease Education Program and the [facility] literature.Reference ranges:60 or greater: Xqhojw09-48 ( for 3 consecutive months): Chronic kidney disease 15 or less: Kidney failureCarl R. Darnall Army Medical CenterGlucose cpwbtwjjoph5583-94-33 09:58:00* Test Item Value Reference Range Interpretation Comments Glucose Level (test code = ITJ7324) 82 74-118 [facility]rerum or plasma calcium measurement (mass/volume)2019-10-27 09:58:00* Test Item Value Reference Range Interpretation Comments Calcium Level (test code = 79071-6) 8.3 8.4-10.2 [facility] or plasma total bilirubin measurement (mass/volume)2019-10-27 09:58:00* Test Item Value Reference Range Interpretation Comments Total Bilirubin (test code = 1975-2) 0.3 0.2-1.2 [facility] CenterFluoroscopic procedure less than one hour bdrpjrpo0570-65-81 09:58:00* Test Item Value Reference Range Interpretation Comments Aspartate Amino Transf (AST/SGOT) (test code = Aspartate Amino Transf (AST/SGOT)) 90 5-34 [facility] or plasma alanine aminotransferase measurement (enzymatic activity/volume)2019-10-27 09:58:00* Test Item Value Reference Range Interpretation Comments Alanine Aminotransferase (ALT/SGPT) (test code = 1742-6) 60 0-55 [facility] or plasma protein measurement (mass/volume)2019-10-27 09:58:00* Test Item Value Reference Range Interpretation Comments Total Protein (test code = 2885-2) 7.1 6.5-8.1 [facility] or plasma albumin measurement (mass/volume)2019-10-27 09:58:00* Test Item Value Reference Range Interpretation Comments Albumin (test code = 1751-7) 3.8 3.5-5.0 [facility] CenterPlasma globulin measurement (mass/volume) 2019-10-27 09:58:00* Test Item Value Reference Range Interpretation Comments Globulin (test code = 43776-2) 3.3 2.3-3.5 [facility] or plasma albumin/globulin mass ltzlt1691-08-64 09:58:00* Test Item Value Reference Range Interpretation Comments Albumin/Globulin Ratio (test code = 1759-0) 1.2 0.8-2.0 [facility] or plasma alkaline phosphatase measurement (enzymatic activity/volume)2019-10-27 09:58:00* Test Item Value Reference Range Interpretation Comments Alkaline Phosphatase (test code = 6768-6) 122 40-150 [facility] or plasma creatine kinase measurement (enzymatic activity/volume)2019-10-27 09:58:00* Test Item Value Reference Range Interpretation Comments Creatine Kinase (test code = 2157-6) 183 29-168 [facility]rerum or plasma creatine kinase MB measurement (mass/volume)2019-10-27 09:58:00* Test Item Value Reference Range Interpretation Comments Creatine Kinase MB (test code = 18144-3) 2.00 0-5.0 [facility] CenterTroponin I measurement by highly sensitive enzyme qcrbdvcyppf9807-97-33 09:58:00* Test Item Value Reference Range Interpretation Comments Troponin I (test code = 53774-1) 0.024 0-0.300 [facility]rum or plasma acetaminophen measurement by screening method (mass/volume)2019-10-27 09:58:00* Test Item Value Reference Range Interpretation Comments Acetaminophen Level (test code = 48928-9) < 3.0 10-30 [facility] or plasma thyrotropin measurement by detection limit <= 0.005 miu/l (units/volume)2019-10-27 09:58:00* Test Item Value Reference Range Interpretation Comments Thyroid Stimulating Hormone (TSH) (test code = 17558-7) 4.092 0.350-4.940 [facility]ylererum or plasma salicylates measurement (mass/volume)2019-10-27 09:58:00* Test Item Value Reference Range Interpretation Comments Salicylates Level (test code = 4024-6) < 5.0 0-30 [facility] CenterURINALYSIS HKUVVVLA4036-17-93 01:44:00* Test Item Value Reference Range Interpretation [...] Urine Source? Clean CatchDRUGS OF ABUSE SCREEN [id number] 01:44:00* Test Item Value Reference Range Interpretation [...] NEGATIVE <300 ng/mL Urine Source? Clean CatchURINALYSIS [id number] 01:35:00* Test Item Value Reference Range Interpretation [...] Urine Source? Clean CatchDRUGS OF ABUSE SCREEN [id number] 01:35:00* Test Item Value Reference Range Interpretation [...] <300 ng/mL Urine Source? Clean CatchHEPATIC FUNCTION [id number] 20:46:00* Test Item Value Reference Range Interpretation [...] reference range due to change in reagent. [id number] 20:46:00* Test Item Value Reference Range Interpretation [...] ANADDITIONAL CHARGE TO THE PATIENT. BASIC METABOLIC [id number] 20:44:00* Test Item Value Reference Range Interpretation [...] code = CA) 8.0 mg/dL 8.5-10.1 L VZOJFZYXW6921-16-62 20:44:00* Test Item Value Reference Range Interpretation Comments MAGNESIUM (test code = MAG) 2.3 mg/dL 1.8-2.4 N HCG SERUM [id number] 20:44:00* Test Item Value Reference Range Interpretation Comments HCG SERUM QUAL (test code = HCGQL) NEGATIVE NEGATIVE This HCGQL test is NOT applicable for MALE patients.Check with nurse about probable order error.If Tumor Marker Test needed, nurse should order test "HCGTU"(Test #550.17803) [id number] 20:44:00* Test Item Value Reference Range Interpretation Comments TROPONIN-I (test code = TROPI) <0.015 ng/mL 0-0.045 N BASIC METABOLIC [id number] 20:39:00* Test Item Value Reference Range Interpretation [...] CALCIUM (test code = CA) mg/dL 8.5-10.1 GPZZDDDPS4782-69-02 20:39:00* Test Item Value Reference Range Interpretation Comments MAGNESIUM (test code = MAG) mg/dL 1.8-2.4 HCG SERUM [id number] 20:39:00* Test Item Value Reference Range Interpretation Comments HCG SERUM QUAL (test code = HCGQL) NEGATIVE [id number]-[id number] 20:39:00* Test Item Value Reference Range Interpretation Comments TROPONIN-I (test code = TROPI) ng/mL 0-0.045 BASIC METABOLIC [id number] 20:39:00* Test Item Value Reference Range Interpretation [...] CALCIUM (test code = CA) mg/dL 8.5-10.1 [id number] 20:39:00* Test Item Value Reference Range Interpretation Comments MAGNESIUM (test code = MAG) mg/dL 1.8-2.4 HCG SERUM [id number] 20:39:00* Test Item Value Reference Range Interpretation Comments HCG SERUM QUAL (test code = HCGQL) NEGATIVE NEGATIVE This HCGQL test is NOT applicable for MALE patients.Check with nurse about probable order error.If Tumor Marker Test needed, nurse should order test "HCGTU"(Test #550.24725) [id number] 20:39:00* Test Item Value Reference Range Interpretation Comments TROPONIN-I (test code = TROPI) ng/mL 0-0.045 CBC W/O [id number] 20:30:00* Test Item Value Reference Range Interpretation [...] code = MPV) fL 6.7-11.0 CBC W/O [id number] 20:30:00* Test Item Value Reference Range Interpretation [...] = MPV) 9.1 fL 6.7-11.0 N URINALYSIS [id number] 21:57:00* Test Item Value Reference Range Interpretation [...] Urine Source? Clean CatchDRUGS OF ABUSE SCREEN [id number] 21:57:00* Test Item Value Reference Range Interpretation [...] Urine Source? Clean Catch- CT C-SPINE W/O [id number] 21:54:00 Name: MANDY ASCENCIO [facility] : 1985 Age/S: 33 / F [address] [facility] Unit #: [id number] Loc: [place] [address] Phys: Mariella Nelson DO Acct: [id number] Di s Date: Status: REG ER PHONE #: Exam Date: 10/11/20192146 FAX #: Reason: Neck Pain EXAMS: CPT CODE: [id number] CT C-SPINE W/O CONTRAST 93885 REASON FOR EXAM: Neck Pain EXAM ORDER [...] 1 Signed Report - CT HEAD/BRAIN W/O [id number] 21:52:00 Name: MANDY ASCENCIO [facility] : 1985 Age/S: 33 / F [address] [facility] Unit #: [id number] Loc: [place] [address] Phys: Mariella Nelson DO Acct: [id number] Di s Date: Status: REG ER PHONE #: Exam Date: 10/11/20192146 FAX #: Reason: head injury EXAMS: CPT CODE: [id number] CT HEAD/BRAIN W/O CONT 58675 REASON FOR EXAM: head injury EXAM ORDER [...] natividad GALAVIZVTL Orig Print D/T: S: 10/11/2019 (7231) PAGE 1 Signed Report URINALYSIS [id number] 21:29:00* Test Item Value Reference Range Interpretation [...] Urine Source? Clean CatchDRUGS OF ABUSE SCREEN [id number] 21:29:00* Test Item Value Reference Range Interpretation [...] [place]) <300 ng/mL Urine Source? Clean CatchURINALYSIS [id number] 21:26:00* Test Item Value Reference Range Interpretation [...] Urine Source? Clean CatchDRUGS OF ABUSE SCREEN [id number] 21:26:00* Test Item Value Reference Range Interpretation [...] <300 ng/mL Urine Source? Clean CatchBASIC METABOLIC [id number] 21:23:00* Test Item Value Reference Range Interpretation [...] CA) 8.4 mg/dL 8.5-10.1 L HEPATIC FUNCTION [id number] 21:23:00* Test Item Value Reference Range Interpretation [...] due to change in reagent. HCG SERUM [id number] 21:23:00* Test Item Value Reference Range Interpretation Comments HCG SERUM QUAL (test code = HCGQL) NEGATIVE NEGATIVE This HCGQL test is NOT applicable for MALE patients.Check with nurse about probable order error.If Tumor Marker Test needed, nurse should order test "HCGTU"(Test #550.12804) [id number] 21:23:00* Test Item Value Reference Range Interpretation Comments ACETAMINOPHEN (test code = ACET) < 10 mcg/mL 10-30 L A RANGE OF 10-30 mcg/mL IS A THERAPEUTIC RANGE. TOXIC CONCENTRATIONS: >150 mcg/mL AT 4 HOURS AFTER INGESTION >= 50 mcg/mL AT 12 HOURS AFTER INGESTION [id number] 21:23:00* Test Item Value Reference Range Interpretation Comments SALICYLATE (test code = CHRIS) 2.3 mg/dL 2.8-20.0 L [id number] 21:23:00* Test Item Value Reference Range Interpretation [...] ANADDITIONAL CHARGE TO THE PATIENT. BASIC METABOLIC [id number] 21:21:00* Test Item Value Reference Range Interpretation [...] CA) 8.4 mg/dL 8.5-10.1 L HEPATIC FUNCTION [id number] 21:21:00* Test Item Value Reference Range Interpretation [...] due to change in reagent. HCG SERUM [id number] 21:21:00* Test Item Value Reference Range Interpretation Comments HCG SERUM QUAL (test code = HCGQL) NEGATIVE NEGATIVE This HCGQL test is NOT applicable for MALE patients.Check with nurse about probable order error.If Tumor Marker Test needed, nurse should order test "HCGTU"(Test #550.82250) [id number] 21:21:00* Test Item Value Reference Range Interpretation Comments ACETAMINOPHEN (test code = ACET) < 10 mcg/mL 10-30 L A RANGE OF 10-30 mcg/mL IS A THERAPEUTIC RANGE. TOXIC CONCENTRATIONS: >150 mcg/mL AT 4 HOURS AFTER INGESTION >= 50 mcg/mL AT 12 HOURS AFTER INGESTION [id number] 21:21:00* Test Item Value Reference Range Interpretation Comments SALICYLATE (test code = CHRIS) 2.3 mg/dL 2.8-20.0 L [id number] 21:21:00* Test Item Value Reference Range Interpretation Comments ALCOHOL (test code = ALC) mg/dL 0-3 [id number] 21:14:00* Test Item Value Reference Range Interpretation Comments PHOSPHORUS (test code = PHOS) 3.7 mg/dL 2.5-4.9 N [id number] 21:10:00* Test Item Value Reference Range Interpretation Comments MAGNESIUM (test code = MAG) 2.0 mg/dL 1.8-2.4 N BASIC METABOLIC [id number] 21:09:00* Test Item Value Reference Range Interpretation [...] code = CA) mg/dL 8.5-10.1 HEPATIC FUNCTION [id number] 21:09:00* Test Item Value Reference Range Interpretation [...] code = ALKP) IUnit/L 45-117 HCG SERUM [id number] 21:09:00* Test Item Value Reference Range Interpretation Comments HCG SERUM QUAL (test code = HCGQL) NEGATIVE NEGATIVE This HCGQL test is NOT applicable for MALE patients.Check with nurse about probable order error.If Tumor Marker Test needed, nurse should order test "HCGTU"(Test #550.01399) [id number] 21:09:00* Test Item Value Reference Range Interpretation Comments ACETAMINOPHEN (test code = ACET) mcg/mL 10-30 [id number] 21:09:00* Test Item Value Reference Range Interpretation Comments SALICYLATE (test code = CHRIS) mg/dL 2.8-20.0 [id number] 21:09:00* Test Item Value Reference Range Interpretation Comments ALCOHOL (test code = ALC) mg/dL 0-3 CBC W/O [id number] 21:07:00* Test Item Value Reference Range Interpretation [...] MPV) 9.0 fL 6.7-11.0 N BASIC METABOLIC [id number] 21:06:00* Test Item Value Reference Range Interpretation [...] code = CA) mg/dL 8.5-10.1 HEPATIC FUNCTION [id number] 21:06:00* Test Item Value Reference Range Interpretation [...] code = ALKP) IUnit/L 45-117 HCG SERUM [id number] 21:06:00* Test Item Value Reference Range Interpretation Comments HCG SERUM QUAL (test code = HCGQL) NEGATIVE NEGATIVE This HCGQL test is NOT applicable for MALE patients.Check with nurse about probable order error.If Tumor Marker Test needed, nurse should order test "HCGTU"(Test #550.49816) [id number] 21:06:00* Test Item Value Reference Range Interpretation Comments ACETAMINOPHEN (test code = ACET) mcg/mL 10-30 [id number] 21:06:00* Test Item Value Reference Range Interpretation Comments SALICYLATE (test code = CHRIS) mg/dL 2.8-20.0 [id number] 21:06:00* Test Item Value Reference Range Interpretation Comments ALCOHOL (test code = ALC) mg/dL 0-3 CBC W/O [id number] 21:04:00* Test Item Value Reference Range Interpretation [...] (test code = MPV) fL 6.7-11.0 URINALYSIS [id number] 03:11:00* Test Item Value Reference Range Interpretation [...] Urine Source? Clean CatchDRUGS OF ABUSE SCREEN [id number] 03:11:00* Test Item Value Reference Range Interpretation [...] NEGATIVE <300 ng/mL Urine Source? Clean CatchURINALYSIS [id number] 02:51:00* Test Item Value Reference Range Interpretation [...] Urine Source? Clean CatchDRUGS OF ABUSE SCREEN [id number] 02:51:00* Test Item Value Reference Range Interpretation [...] Urine Source? Clean Catch- CT HEAD/BRAIN W/O [id number] 00:49:00 Name: MANDY ASCENCIO [facility] : 1985 Age/S: 33 / F [address] Unit #: [id number] Loc: [place], [place] [address] Phys: Jeremias Raymundo MD Acct: [id number] Di s Date: Status: REG ER PHONE #: Exam Date: 10/07/201943 FAX #: Reason: HEADACHE EXAMS: CPT CODE: [id number] CT HEAD/BRAIN W/O CONT 30521 EXAM: CT BRAIN WITHOUT CO NTRAST INDICATION: [...] 1 Signed Report - CT C-SPINE W/O [id number] 00:48:00 Name: MANDY ASCENCIO [facility] : 1985 Age/S: 33 / F [address] Unit #: [id number] [place] [address] Phys: Yesika Raymundo MD Acct: [id number] Dis Date: Status: REG ER PHONE #: [phone] Exam Date: 10/07/201943 FAX #: [phone] Reason: Neck Pain EXAMS: CPT CODE: [id number] CT C-SPINE W/O CONTRAST 41560 Exam: CT C-spine. Location: H 12 History: [...] 1 Signed Report - XR CHEST 1 [id number] 00:04:00 FAX: Yesika Puente [phone] [place]: B St: REG Name: MANDY BARTHOLOMEW [facility] : [birth year] Age/S: 33/F [address] [facility] Unit #: [id number] Loc: [place] [address] Phys: Yesika Raymundo MD Acct: [id number] Dis Date: Status: REG ER PHONE #: [phone] Exam Date: 10/06/2019 2349 FAX #: [phone] Reason: CHEST PAIN EXAMS: CPT CODE: [id number] XR CHEST 1 V 22679 EXAM: - XR CHEST 1 V HISTORY: [...] (0007) PAGE 1 Signed Report BASIC METABOLIC [id number] 00:02:00* Test Item Value Reference Range Interpretation [...] CA) 8.3 mg/dL 8.5-10.1 L HEPATIC FUNCTION [id number] 00:02:00* Test Item Value Reference Range Interpretation [...] reference range due to change in reagent. [id number] 00:02:00* Test Item Value Reference Range Interpretation Comments LIPASE (test code = LIP) 61 U/L 73.0-393.0 L HCG SERUM [id number] 00:02:00* Test Item Value Reference Range Interpretation Comments HCG SERUM QUAL (test code = HCGQL) NEGATIVE NEGATIVE This HCGQL test is NOT applicable for MALE patients.Check with nurse about probable order error.If Tumor Marker Test needed, nurse should order test "HCGTU"(Test #550.14811) [id number] 00:02:00* Test Item Value Reference Range Interpretation [...] ANADDITIONAL CHARGE TO THE PATIENT. BASIC METABOLIC [id number] 23:36:00* Test Item Value Reference Range Interpretation [...] CA) 8.3 mg/dL 8.5-10.1 L HEPATIC FUNCTION [id number] 23:36:00* Test Item Value Reference Range Interpretation [...] reference range due to change in reagent. [id number] 23:36:00* Test Item Value Reference Range Interpretation Comments LIPASE (test code = LIP) 61 U/L 73.0-393.0 L HCG SERUM [id number] 23:36:00* Test Item Value Reference Range Interpretation Comments HCG SERUM QUAL (test code = HCGQL) NEGATIVE NEGATIVE This HCGQL test is NOT applicable for MALE patients.Check with nurse about probable order error.If Tumor Marker Test needed, nurse should order test "HCGTU"(Test #550.11970) [id number] 23:36:00* Test Item Value Reference Range Interpretation Comments ALCOHOL (test code = ALC) mg/dL 0-3 BASIC METABOLIC [id number] 23:31:00* Test Item Value Reference Range Interpretation [...] CA) 8.3 mg/dL 8.5-10.1 L HEPATIC FUNCTION [id number] 23:31:00* Test Item Value Reference Range Interpretation [...] reference range due to change in reagent. [id number] 23:31:00* Test Item Value Reference Range Interpretation Comments LIPASE (test code = LIP) 61 U/L 73.0-393.0 L HCG SERUM [id number] 23:31:00* Test Item Value Reference Range Interpretation Comments HCG SERUM QUAL (test code = HCGQL) NEGATIVE [id number] 23:31:00* Test Item Value Reference Range Interpretation Comments ALCOHOL (test code = ALC) mg/dL 0-3 CBC W/O [id number] 23:16:00* Test Item Value Reference Range Interpretation [...] MPV) 9.2 fL 6.7-11.0 N CBC W/O [id number] 22:58:00* Test Item Value Reference Range Interpretation [...] MPV) fL 6.7-11.0 - CT L-SPINE W/O [id number] 16:13:00 Name: MANDY ASCENCIO [facility] : 1985 Age/S: 33 / F [address] [facility] Unit #: [id number] Loc: [place] [address] Phys: Mai Phillips MD Acct: [id number] Dis Date: Status: ADM IN PHONE #: [phone] Exam Date: 10/03/2019 8024 FAX #: [phone] Reason: H/o recent lumbar Vertebral fracture EXAMS: CPT CODE: [id number] CT L-SPINE W/O CONTRAST 82785 EXAM: CT of the lumbar spine without [...] L4/5 without neural foraminal stenosis. Location code: [facility] at 1613 Reported and s igned by: Quentin Ervin M.D. CC: Mai Phillips MD; Vianca Mcgregor MD Technologist:Papa Cobian RT(R),(MR),(CT) CTDI: DLP: Trnscb Date/Time: 10/03/2019 (1613) t.SDR.GRW Orig Print D/T: S: 10/03/2019 (1616) PAGE 1 Signed Report [id number] 05:10:00* Test Item Value Reference Range Interpretation Comments PHOSPHORUS (test code = PHOS) 2.5 mg/dL 2.5-4.9 N [id number] 05:10:00* Test Item Value Reference Range Interpretation Comments AMYLASE (test code = ANGELITA) 21 Unit/L 25-115 L [id number] 05:10:00* Test Item Value Reference Range Interpretation Comments MAGNESIUM (test code = MAG) 2.2 mg/dL 1.8-2.4 N VITAMIN [id number] 05:10:00* Test Item Value Reference Range Interpretation Comments VITAMIN B12 (test code = VITB12) 482 pg/mL 193-986 N FOLIC [id number] 05:10:00* Test Item Value Reference Range Interpretation Comments FOLIC ACID (test code = FOL) 107.6 ng/mL 3.10-17.50 H [id number] 04:02:00* Test Item Value Reference Range Interpretation Comments PHOSPHORUS (test code = PHOS) 2.5 mg/dL 2.5-4.9 N [id number] 04:02:00* Test Item Value Reference Range Interpretation Comments AMYLASE (test code = ANGELITA) 21 Unit/L 25-115 L [id number] 04:02:00* Test Item Value Reference Range Interpretation Comments MAGNESIUM (test code = MAG) 2.2 mg/dL 1.8-2.4 N VITAMIN [id number] 04:02:00* Test Item Value Reference Range Interpretation Comments VITAMIN B12 (test code = VITB12) 482 pg/mL 193-986 N FOLIC [id number] 04:02:00* Test Item Value Reference Range Interpretation Comments FOLIC ACID (test code = FOL) ng/mL 3.10-17.50 [id number] 03:24:00* Test Item Value Reference Range Interpretation Comments ALCOHOL (test code = ALC) 224 mg/dL 0.0-3.0 H -- INTERPRETIVE DATA NOTE: POSITIVE SCREENING RESULTS SHOULD BE CONSIDERED PRESUMPTIVE.WHEN COLLECTED FOR MEDICAL PURPOSES ONLY. SPECIMEN WILL NOTBE COLLECTED BY CHAIN OF CUSTODY.IF A CONFIRMATION OF POSITIVE RESULTS IS DESIRED, ACONFIRMATION TEST MUST BE REQUESTED BY THE PHYSICIAN AT ANADDITIONAL CHARGE TO THE PATIENT. [id number] 03:24:00* Test Item Value Reference Range Interpretation Comments AMMONIA (test code = AMM) 33 umol/L 11-32 H URINALYSIS [id number] 00:51:00* Test Item Value Reference Range Interpretation [...] Urine Source? Clean CatchDRUGS OF ABUSE SCREEN [id number] 00:51:00* Test Item Value Reference Range Interpretation [...] <300 ng/mL Urine Source? Clean CatchBASIC METABOLIC [id number] 00:51:00* Test Item Value Reference Range Interpretation [...] CA) 8.4 mg/dL 8.5-10.1 L HEPATIC FUNCTION [id number] 00:51:00* Test Item Value Reference Range Interpretation [...] code = CK) 579 IUnit/L 26-208 H [id number] 00:51:00* Test Item Value Reference Range Interpretation Comments LIPASE (test code = LIP) 103 U/L 73.0-393.0 N HCG SERUM [id number] 00:51:00* Test Item Value Reference Range Interpretation Comments HCG SERUM QUAL (test code = HCGQL) NEGATIVE NEGATIVE This HCGQL test is NOT applicable for MALE patients.Check with nurse about probable order error.If Tumor Marker Test needed, nurse should order test "HCGTU"(Test #550.93438) [id number] 00:51:00* Test Item Value Reference Range Interpretation Comments TROPONIN-I (test code = TROPI) <0.015 ng/mL 0-0.045 N [id number] 00:51:00* Test Item Value Reference Range Interpretation Comments ALCOHOL (test code = ALC) 288 mg/dL 0.0-3.0 H -- INTERPRETIVE DATA NOTE: POSITIVE SCREENING RESULTS SHOULD BE CONSIDERED PRESUMPTIVE.WHEN COLLECTED FOR MEDICAL PURPOSES ONLY. SPECIMEN WILL NOTBE COLLECTED BY CHAIN OF CUSTODY.IF A CONFIRMATION OF POSITIVE RESULTS IS DESIRED, ACONFIRMATION TEST MUST BE REQUESTED BY THE PHYSICIAN AT ANADDITIONAL CHARGE TO THE PATIENT. URINALYSIS [id number] 00:24:00* Test Item Value Reference Range Interpretation [...] Urine Source? Clean CatchDRUGS OF ABUSE SCREEN [id number] 00:24:00* Test Item Value Reference Range Interpretation [...] <300 ng/mL Urine Source? Clean CatchBASIC METABOLIC [id number] 00:18:00* Test Item Value Reference Range Interpretation [...] CA) 8.4 mg/dL 8.5-10.1 L HEPATIC FUNCTION [id number] 00:18:00* Test Item Value Reference Range Interpretation [...] code = CK) 579 IUnit/L 26-208 H [id number] 00:18:00* Test Item Value Reference Range Interpretation Comments LIPASE (test code = LIP) 103 U/L 73.0-393.0 N HCG SERUM [id number] 00:18:00* Test Item Value Reference Range Interpretation Comments HCG SERUM QUAL (test code = HCGQL) NEGATIVE [id number] 00:18:00* Test Item Value Reference Range Interpretation Comments TROPONIN-I (test code = TROPI) <0.015 ng/mL 0-0.045 N [id number] 00:18:00* Test Item Value Reference Range Interpretation [...] ANADDITIONAL CHARGE TO THE PATIENT. BASIC METABOLIC [id number] 23:57:00* Test Item Value Reference Range Interpretation [...] code = CA) mg/dL 8.5-10.1 HEPATIC FUNCTION [id number] 23:57:00* Test Item Value Reference Range Interpretation [...] (CK) (test code = CK) IUnit/L 26-208 [id number] 23:57:00* Test Item Value Reference Range Interpretation Comments LIPASE (test code = LIP) U/L 73.0-393.0 HCG SERUM [id number] 23:57:00* Test Item Value Reference Range Interpretation Comments HCG SERUM QUAL (test code = HCGQL) NEGATIVE [id number] 23:57:00* Test Item Value Reference Range Interpretation Comments TROPONIN-I (test code = TROPI) ng/mL 0-0.045 [id number] 23:57:00* Test Item Value Reference Range Interpretation Comments ALCOHOL (test code = ALC) mg/dL 0-3 CBC W/O [id number] 23:46:00* Test Item Value Reference Range Interpretation [...] code = MPV) 8.8 fL 6.7-11.0 N [id number] 23:38:00* Test Item Value Reference Range Interpretation Comments GLUBED (test code = GLUBED) 86 mg/dL 74-106 N Performed by certified nuclear station operator at [facility] UR HCG [id number] 12:11:00* Test Item Value Reference Range Interpretation Comments UR HCG QUAL (test code = HCGQLU) NEGATIVE This HCGQL test is NOT applicable for MALE patients.Check with nurse about probable order error.If Tumor Marker Test needed, nurse should order test "HCGTU"(Test #550.79535) DRUGS OF ABUSE SCREEN [id number] 12:11:00* Test Item Value Reference Range Interpretation [...] = MET[place]URN) NEGATIVE <300 ng/mL UR HCG [id number] 11:35:00* Test Item Value Reference Range Interpretation Comments UR HCG QUAL (test code = HCGQLU) NEGATIVE This HCGQL test is NOT applicable for MALE patients.Check with nurse about probable order error.If Tumor Marker Test needed, nurse should order test "HCGTU"(Test #550.30499) DRUGS OF ABUSE SCREEN [id number] 11:35:00* Test Item Value Reference Range Interpretation [...] code = METHAURN) <300 ng/mL COMPREHENSIVE METABOLIC [id number] 09:10:00* Test Item Value Reference Range Interpretation [...] reference range due to change in reagent. [id number] 09:10:00* Test Item Value Reference Range Interpretation Comments PHOSPHORUS (test code = PHOS) 3.0 mg/dL 2.5-4.9 N [id number] 09:10:00* Test Item Value Reference Range Interpretation Comments MAGNESIUM (test code = MAG) 1.9 mg/dL 1.8-2.4 N VITAMIN [id number] 09:10:00* Test Item Value Reference Range Interpretation Comments VITAMIN B12 (test code = VITB12) 259 pg/mL 193-986 N FOLIC [id number] 09:10:00* Test Item Value Reference Range Interpretation Comments FOLIC ACID (test code = FOL) 12.4 ng/mL 3.10-17.50 N THYROID STIMULATING [id number] 09:10:00* Test Item Value Reference Range Interpretation Comments THYROID STIMULATING HORMONE (test code = TSH) 1.480 uIU/mL 0.36-3.7 4 N TSH REFERENCE RANGES: EUTHYROID: 0.35 - 4.3 mIU/mL HYPO : > 5.5 mIU/mL HYPER : < 0.35 mIU/mL [id number] 09:10:00* Test Item Value Reference Range Interpretation [...] ANADDITIONAL CHARGE TO THE PATIENT. COMPREHENSIVE METABOLIC [id number] 08:39:00* Test Item Value Reference Range Interpretation [...] TOTAL (test code = ALKP) IUnit/L 45-117 [id number] 08:39:00* Test Item Value Reference Range Interpretation Comments PHOSPHORUS (test code = PHOS) mg/dL 2.5-4.9 [id number] 08:39:00* Test Item Value Reference Range Interpretation Comments MAGNESIUM (test code = MAG) mg/dL 1.8-2.4 VITAMIN [id number] 08:39:00* Test Item Value Reference Range Interpretation Comments VITAMIN B12 (test code = VITB12) pg/mL 193-986 FOLIC [id number] 08:39:00* Test Item Value Reference Range Interpretation Comments FOLIC ACID (test code = FOL) ng/mL 3.10-17.50 THYROID STIMULATING [id number] 08:39:00* Test Item Value Reference Range Interpretation Comments THYROID STIMULATING HORMONE (test code = TSH) uIU/mL 0.36-3.7 4 [id number] 08:39:00* Test Item Value Reference Range Interpretation Comments ALCOHOL (test code = ALC) mg/dL 0-3 [id number] 08:27:00* Test Item Value Reference Range Interpretation Comments AMYLASE (test code = ANGELITA) 24 Unit/L 25-115 L [id number] 08:27:00* Test Item Value Reference Range Interpretation Comments LIPASE (test code = LIP) 63 U/L 73.0-393.0 L [id number] 07:58:00* Test Item Value Reference Range Interpretation Comments AMMONIA (test code = AMM) 31 umol/L 11-32 N [id number] 07:46:00* Test Item Value Reference Range Interpretation [...] AT ANADDITIONAL CHARGE TO THE PATIENT. PROTHROMBIN [id number] 07:34:00* Test Item Value Reference Range Interpretation [...] (2.5-3.5) IS PATIENT ON ANTICOAGULANTS? NTHROMBOPLASTIN TIME [id number] 07:34:00* Test Item Value Reference Range Interpretation Comments THROMBOPLASTIN TIME PARTIAL (test code = PTT) 29.7 seconds 23.0-37. 0 N IS PATIENT ON ANTICOAGULANTS? NCBC W/AUTO [id number] 07:30:00* Test Item Value Reference Range Interpretation [...] = MDIFF) NO - CT HEAD/BRAIN W/O [id number] 04:12:00 Name: MANDY ASCENCIO [facility] : 1985 Age/S: 33 / F [address] [facility] Unit #: [id number] Loc: [place] [address] Phys: Geoffrey Bae MD Acct: [id number] Dis Date: Status: REG ER PHONE #: [phone] Exam Date: 10/01/2019 0402 FAX #: [phone] Reason: multiple seizure EXAMS: CPT CODE: [id number] CT HEAD/BRAIN W/O CONT 28924 EXAM: - CT HEAD/BRAIN W/O CONT LOCATION: [...] 1 Signed Report (CONTINUED) Name: MANDY ASCENCIO [facility] : 1985 Age/S: 33 / F [address] [facility] Unit #: [id number] Loc: [place] [address] Phys: Geoffrey Bae MD Acct: [id number] Dis Date: Status: REG ER PHONE #: [phone] Exam Date: 020 0402 FAX #: [phone] Reason: multiple seizure EXAMS: CPT CODE: [id number] CT HEAD/BRAIN W/O CONT 63223 <Continued> at 0412 Reported and signed by: Cesar Parmar M.D. CC: Geoffrey Bae MD; Edgar Lerma DO Technologist:KECIA DELGADO, RT; Dimas Blas CTDI: DLP: Trnscb Date/Time: 10/01/2019 (411) tJESIHV2 Orig Print D/T: S: 10/01/2019 (041) PAGE 2 Signed Report [id number] 18:22:00* Test Item Value Reference Range Interpretation [...] reported result: 391 mg/dLEdited by: MERY on 09/30/19:64392209/30/19 1749: ALCOHOL previously reported as: 391 H mg/dL [id number] 17:17:00* Test Item Value Reference Range Interpretation Comments ALCOHOL (test code = ALC) 391 mg/dL 0.0-3.0 H -- INTERPRETIVE DATA NOTE: POSITIVE SCREENING RESULTS SHOULD BE CONSIDERED PRESUMPTIVE.WHEN COLLECTED FOR MEDICAL PURPOSES ONLY. SPECIMEN WILL NOTBE COLLECTED BY CHAIN OF CUSTODY.IF A CONFIRMATION OF POSITIVE RESULTS IS DESIRED, ACONFIRMATION TEST MUST BE REQUESTED BY THE PHYSICIAN AT ANADDITIONAL CHARGE TO THE PATIENT. URINALYSIS [id number] 11:40:00* Test Item Value Reference Range Interpretation [...] Urine Source? Clean CatchDRUGS OF ABUSE SCREEN [id number] 11:40:00* Test Item Value Reference Range Interpretation [...] NEGATIVE <300 ng/mL Urine Source? Clean CatchURINALYSIS [id number] 11:37:00* Test Item Value Reference Range Interpretation [...] Urine Source? Clean CatchDRUGS OF ABUSE SCREEN [id number] 11:37:00* Test Item Value Reference Range Interpretation [...] [place]URN) <300 ng/mL Urine Source? Clean CatchURINALYSIS [id number] 11:37:00* Test Item Value Reference Range Interpretation [...] Urine Source? Clean CatchDRUGS OF ABUSE SCREEN [id number] 11:37:00* Test Item Value Reference Range Interpretation [...] <300 ng/mL Urine Source? Clean CatchBASIC METABOLIC [id number] 10:54:00* Test Item Value Reference Range Interpretation [...] CA) 7.6 mg/dL 8.5-10.1 L HEPATIC FUNCTION [id number] 10:54:00* Test Item Value Reference Range Interpretation [...] due to change in reagent. HCG SERUM [id number] 10:54:00* Test Item Value Reference Range Interpretation Comments HCG SERUM QUAL (test code = HCGQL) NEGATIVE NEGATIVE \\This HCGQL test is NOT applicable for MALE patients.Check with nurse about probable order error.If Tumor Marker Test needed, nurse should order test "HCGTU"(Test #550.35265) [id number] 10:54:00* Test Item Value Reference Range Interpretation Comments ACETAMINOPHEN (test code = ACET) < 10 mcg/mL 10-30 L A RANGE OF 10-30 mcg/mL IS A THERAPEUTIC RANGE. TOXIC CONCENTRATIONS: >150 mcg/mL AT 4 HOURS AFTER INGESTION >= 50 mcg/mL AT 12 HOURS AFTER INGESTION [id number] 10:54:00* Test Item Value Reference Range Interpretation Comments SALICYLATE (test code = CHRIS) 1.9 mg/dL 2.8-20.0 L [id number] 10:54:00* Test Item Value Reference Range Interpretation [...] ANADDITIONAL CHARGE TO THE PATIENT. BASIC METABOLIC [id number] 10:46:00* Test Item Value Reference Range Interpretation [...] CA) 7.6 mg/dL 8.5-10.1 L HEPATIC FUNCTION [id number] 10:46:00* Test Item Value Reference Range Interpretation [...] due to change in reagent. HCG SERUM [id number] 10:46:00* Test Item Value Reference Range Interpretation Comments HCG SERUM QUAL (test code = HCGQL) NEGATIVE NEGATIVE \\This HCGQL test is NOT applicable for MALE patients.Check with nurse about probable order error.If Tumor Marker Test needed, nurse should order test "HCGTU"(Test #550.85160) [id number] 10:46:00* Test Item Value Reference Range Interpretation Comments ACETAMINOPHEN (test code = ACET) < 10 mcg/mL 10-30 L A RANGE OF 10-30 mcg/mL IS A THERAPEUTIC RANGE. TOXIC CONCENTRATIONS: >150 mcg/mL AT 4 HOURS AFTER INGESTION >= 50 mcg/mL AT 12 HOURS AFTER INGESTION [id number] 10:46:00* Test Item Value Reference Range Interpretation Comments SALICYLATE (test code = CHRIS) 1.9 mg/dL 2.8-20.0 L [id number] 10:46:00* Test Item Value Reference Range Interpretation Comments ALCOHOL (test code = ALC) mg/dL 0-3 CBC W/O [id number] 10:39:00* Test Item Value Reference Range Interpretation [...] MPV) 8.6 fL 6.7-11.0 N BASIC METABOLIC [id number] 10:31:00* Test Item Value Reference Range Interpretation [...] code = CA) mg/dL 8.5-10.1 HEPATIC FUNCTION [id number] 10:31:00* Test Item Value Reference Range Interpretation [...] code = ALKP) IUnit/L 45-117 HCG SERUM [id number] 10:31:00* Test Item Value Reference Range Interpretation Comments HCG SERUM QUAL (test code = HCGQL) NEGATIVE NEGATIVE \\This HCGQL test is NOT applicable for MALE patients.Check with nurse about probable order error.If Tumor Marker Test needed, nurse should order test "HCGTU"(Test #[id number]) [id number] 10:31:00* Test Item Value Reference Range Interpretation Comments ACETAMINOPHEN (test code = ACET) mcg/mL 10-30 [id number] 10:31:00* Test Item Value Reference Range Interpretation Comments SALICYLATE (test code = CHRIS) mg/dL 2.8-20.0 [id number] 10:31:00* Test Item Value Reference Range Interpretation Comments ALCOHOL (test code = ALC) mg/dL 0-3 BASIC METABOLIC [id number] 10:29:00* Test Item Value Reference Range Interpretation [...] code = CA) mg/dL 8.5-10.1 HEPATIC FUNCTION [id number] 10:29:00* Test Item Value Reference Range Interpretation [...] code = ALKP) IUnit/L 45-117 HCG SERUM [id number] 10:29:00* Test Item Value Reference Range Interpretation Comments HCG SERUM QUAL (test code = HCGQL) NEGATIVE NEGATIVE \\This HCGQL test is NOT applicable for MALE patients.Check with nurse about probable order error.If Tumor Marker Test needed, nurse should order test "HCGTU"(Test #550.34567) [id number] 10:29:00* Test Item Value Reference Range Interpretation Comments ACETAMINOPHEN (test code = ACET) mcg/mL 10-30 [id number] 10:29:00* Test Item Value Reference Range Interpretation Comments SALICYLATE (test code = CHRIS) mg/dL 2.8-20.0 [id number] 10:29:00* Test Item Value Reference Range Interpretation Comments ALCOHOL (test code = ALC) mg/dL 0-3 URINALYSIS [id number] 06:30:00* Test Item Value Reference Range Interpretation [...] Urine Source? Clean CatchDRUGS OF ABUSE SCREEN [id number] 06:30:00* Test Item Value Reference Range Interpretation [...] <300 ng/mL Urine Source? Clean CatchBASIC METABOLIC [id number] 06:09:00* Test Item Value Reference Range Interpretation [...] CA) 8.6 mg/dL 8.5-10.1 N HEPATIC FUNCTION [id number] 06:09:00* Test Item Value Reference Range Interpretation [...] due to change in reagent. HCG SERUM [id number] 06:09:00* Test Item Value Reference Range Interpretation Comments HCG SERUM QUAL (test code = HCGQL) NEGATIVE NEGATIVE This HCGQL test is NOT applicable for MALE patients.Check with nurse about probable order error.If Tumor Marker Test needed, nurse should order test "HCGTU"(Test #550.74842) [id number] 06:09:00* Test Item Value Reference Range Interpretation Comments ACETAMINOPHEN (test code = ACET) < 10 mcg/mL 10-30 L A RANGE OF 10-30 mcg/mL IS A THERAPEUTIC RANGE. TOXIC CONCENTRATIONS: >150 mcg/mL AT 4 HOURS AFTER INGESTION >= 50 mcg/mL AT 12 HOURS AFTER INGESTION [id number] 06:09:00* Test Item Value Reference Range Interpretation Comments SALICYLATE (test code = CHRIS) < 1.7 mg/dL 2.8-20.0 L [id number] 06:09:00* Test Item Value Reference Range Interpretation [...] ANADDITIONAL CHARGE TO THE PATIENT. BASIC METABOLIC [id number] 06:02:00* Test Item Value Reference Range Interpretation [...] CA) 8.6 mg/dL 8.5-10.1 N HEPATIC FUNCTION [id number] 06:02:00* Test Item Value Reference Range Interpretation [...] due to change in reagent. HCG SERUM [id number] 06:02:00* Test Item Value Reference Range Interpretation Comments HCG SERUM QUAL (test code = HCGQL) NEGATIVE NEGATIVE This HCGQL test is NOT applicable for MALE patients.Check with nurse about probable order error.If Tumor Marker Test needed, nurse should order test "HCGTU"(Test #550.25117) [id number] 06:02:00* Test Item Value Reference Range Interpretation Comments ACETAMINOPHEN (test code = ACET) < 10 mcg/mL 10-30 L A RANGE OF 10-30 mcg/mL IS A THERAPEUTIC RANGE. TOXIC CONCENTRATIONS: >150 mcg/mL AT 4 HOURS AFTER INGESTION >= 50 mcg/mL AT 12 HOURS AFTER INGESTION [id number] 06:02:00* Test Item Value Reference Range Interpretation Comments SALICYLATE (test code = CHRIS) < 1.7 mg/dL 2.8-20.0 L [id number] 06:02:00* Test Item Value Reference Range Interpretation Comments ALCOHOL (test code = ALC) mg/dL 0-3 URINALYSIS [id number] 05:56:00* Test Item Value Reference Range Interpretation [...] Urine Source? Clean CatchDRUGS OF ABUSE SCREEN [id number] 05:56:00* Test Item Value Reference Range Interpretation [...] <300 ng/mL Urine Source? Clean CatchBASIC METABOLIC [id number] 05:54:00* Test Item Value Reference Range Interpretation [...] code = CA) mg/dL 8.5-10.1 HEPATIC FUNCTION [id number] 05:54:00* Test Item Value Reference Range Interpretation [...] code = ALKP) IUnit/L 45-117 HCG SERUM [id number] 05:54:00* Test Item Value Reference Range Interpretation Comments HCG SERUM QUAL (test code = HCGQL) NEGATIVE NEGATIVE This HCGQL test is NOT applicable for MALE patients.Check with nurse about probable order error.If Tumor Marker Test needed, nurse should order test "HCGTU"(Test #550.01586) [id number] 05:54:00* Test Item Value Reference Range Interpretation Comments ACETAMINOPHEN (test code = ACET) mcg/mL 10-30 [id number] 05:54:00* Test Item Value Reference Range Interpretation Comments SALICYLATE (test code = CHRIS) mg/dL 2.8-20.0 [id number] 05:54:00* Test Item Value Reference Range Interpretation Comments ALCOHOL (test code = ALC) mg/dL 0-3 CBC W/O [id number] 05:46:00* Test Item Value Reference Range Interpretation [...] MPV) 8.9 fL 6.7-11.0 N BASIC METABOLIC [id number] 05:41:00* Test Item Value Reference Range Interpretation [...] code = CA) mg/dL 8.5-10.1 HEPATIC FUNCTION [id number] 05:41:00* Test Item Value Reference Range Interpretation [...] code = ALKP) IUnit/L 45-117 HCG SERUM [id number] 05:41:00* Test Item Value Reference Range Interpretation Comments HCG SERUM QUAL (test code = HCGQL) NEGATIVE [id number] 05:41:00* Test Item Value Reference Range Interpretation Comments ACETAMINOPHEN (test code = ACET) mcg/mL 10-30 [id number] 05:41:00* Test Item Value Reference Range Interpretation Comments SALICYLATE (test code = CHRIS) mg/dL 2.8-20.0 [id number] 05:41:00* Test Item Value Reference Range Interpretation Comments ALCOHOL (test code = ALC) mg/dL 0-3 [id number] 19:51:00* Test Item Value Reference Range Interpretation Comments GLUBED (test code = GLUBED) 80 mg/dL 74-106 N Performed by certified nuclear station operator at [facility] [id number] 12:26:00* Test Item Value Reference Range Interpretation Comments GLUBED (test code = GLUBED) 75 mg/dL 74-106 N Performed by certified nuclear station operator at [facility] [id number] 06:47:00* Test Item Value Reference Range Interpretation Comments GLUBED (test code = GLUBED) 84 mg/dL 74-106 N Performed by certified nuclear station operator at [facility] URINALYSIS [id number] 04:40:00* Test Item Value Reference Range Interpretation [...] Urine Source? Clean CatchDRUGS OF ABUSE SCREEN [id number] 04:40:00* Test Item Value Reference Range Interpretation [...] <300 ng/mL Urine Source? Clean CatchBASIC METABOLIC [id number] 04:40:00* Test Item Value Reference Range Interpretation [...] CA) 7.9 mg/dL 8.5-10.1 L HEPATIC FUNCTION [id number] 04:40:00* Test Item Value Reference Range Interpretation [...] due to change in reagent. HCG SERUM [id number] 04:40:00* Test Item Value Reference Range Interpretation [...] 200,000 MIU/ML2-3 MONTHS AFTER CONCEPTION 10,000-100,000 MIU/ML [id number] 04:40:00* Test Item Value Reference Range Interpretation Comments TROPONIN-I (test code = TROPI) <0.015 ng/mL 0-0.045 N [id number] 04:40:00* Test Item Value Reference Range Interpretation Comments ACETAMINOPHEN (test code = ACET) < 10 mcg/mL 10-30 L A RANGE OF 10-30 mcg/mL IS A THERAPEUTIC RANGE. TOXIC CONCENTRATIONS: >150 mcg/mL AT 4 HOURS AFTER INGESTION >= 50 mcg/mL AT 12 HOURS AFTER INGESTION [id number] 04:40:00* Test Item Value Reference Range Interpretation Comments SALICYLATE (test code = CHRIS) 2.5 mg/dL 2.8-20.0 L [id number] 04:40:00* Test Item Value Reference Range Interpretation Comments ALCOHOL (test code = ALC) 488 mg/dL 0.0-3.0 H -- INTERPRETIVE DATA NOTE: POSITIVE SCREENING RESULTS SHOULD BE CONSIDERED PRESUMPTIVE.WHEN COLLECTED FOR MEDICAL PURPOSES ONLY. SPECIMEN WILL NOTBE COLLECTED BY CHAIN OF CUSTODY.IF A CONFIRMATION OF POSITIVE RESULTS IS DESIRED, ACONFIRMATION TEST MUST BE REQUESTED BY THE PHYSICIAN AT ANADDITIONAL CHARGE TO THE PATIENT. URINALYSIS [id number] 04:17:00* Test Item Value Reference Range Interpretation [...] Urine Source? Clean CatchDRUGS OF ABUSE SCREEN [id number] 04:17:00* Test Item Value Reference Range Interpretation [...] Urine Source? Clean Catch- CT HEAD/BRAIN W/O [id number] 04:12:00 Name: MANDY ASCENCIO [facility] : 1985 Age/S: 33 / F [address] [facility] Unit #: [id number] Loc: [place] [address] Phys: Blaze Bae MD Acct: [id number] Di s Date: Status: REG ER PHONE #: Exam Date: 09/24/2019 0400 FAX #: Reason: CONFUSION EXAMS: CPT CODE: [id number] CT HEAD/BRAIN W/O CONT 51027 EXAM: CT Head without con trast Location: [...] 1 Signed Report (CONTINUED) Name: MANDY ASCENCIO [facility] : 1985 Age/S: 33 / F [address] [facility] Unit #: [id number] Loc: [place] [address] Phys: Cindy Bae MD Acct: [id number] Dis Date: Status: REG ER PHONE #: Exam Date: 09/24/2019 040 FAX #: [phone] Reason: CONFUSION EXAMS: CPT CODE: [id number] CT HEAD/BRAIN W/O CONT 54814 <Continued> CC: Geoffrey Bae MD Technologist:KECIA DELGADO, RT; Dimas Blas CTDI: DLP: Trnscb Date/Time: 09/24/2019 (411) [email or web address] Orig Print D/T: S: 09/24/2019 (414) PAGE 2 Signed Report BASIC METABOLIC [id number] 04:06:00* Test Item Value Reference Range Interpretation [...] code = CA) mg/dL 8.5-10.1 HEPATIC FUNCTION [id number] 04:06:00* Test Item Value Reference Range Interpretation [...] code = ALKP) IUnit/L 45-117 HCG SERUM [id number] 04:06:00* Test Item Value Reference Range Interpretation Comments HCG SERUM BETA (test code = HCG) mIU/mL 0-3 [id number] 04:06:00* Test Item Value Reference Range Interpretation Comments TROPONIN-I (test code = TROPI) ng/mL 0-0.045 [id number] 04:06:00* Test Item Value Reference Range Interpretation Comments ACETAMINOPHEN (test code = ACET) mcg/mL 10-30 [id number] 04:06:00* Test Item Value Reference Range Interpretation Comments SALICYLATE (test code = CHRIS) mg/dL 2.8-20.0 [id number] 04:06:00* Test Item Value Reference Range Interpretation Comments ALCOHOL (test code = ALC) mg/dL 0-3 CBC W/O [id number] 03:54:00* Test Item Value Reference Range Interpretation [...] MPV) 9.0 fL 6.7-11.0 N Lamotrigine (Lamictal), [id number] 18:08:00* Test Item Value Reference Range Interpretation Comments Lamotrigine, Serum (test code = 6948-4) 4.4 ug/mL 2-20 This test was developed and its performance characteristicsdetermined by [employer]. It has not been cleared or approvedby the Food and Drug Administration. Detection Limit = 1.0 DAGOBERTO (test code = DAGOBERTO) Performed at: [facility] [id number] Director: Abner Osullivan MD, Phone: [phone] [facility] GLUCOSE POC docked [id number] 17:17:00* Test Item Value Reference Range Interpretation Comments Glucose POC (test code = 61316497) 73 mg/dL 74-106 L Lab Interpretation (test code = 96641-1) [facility]normal [facility] [id number] 15:33:11IMPRESSION: No acute thoracic abnormality. If the [...] By: Camilla Johansen MD, 09/06/2019 3:33 PM [facility] HospitalCoronavirus, CoVID-19, [id number] 11:28:00* Test Item Value Reference Range Interpretation Comments COVID-19 (SARS-COV-2) (test code = 95721-1) Not Detected Not Detect ed INTERPRETATION: No [...] DAGOBERTO (test code = DAGOBERTO) COMMENT: This [email or web address] Xpert Xpress SARS-CoV-2 real-time PCR test was developed, and its performance characteristics determined by the [facility] molecular diagnostic Laboratory and is acceptable for patient testing. It has been approved for patient testing by the FDA under the Emergency Use Authorization pathway. This laboratory is certified under federal CLIA regulations to perform this type of high complexity testing. Lab Interpretation (test code = 33852-3) Normal [facility] BMP POC docked [id number] 02:10:00* Test Item Value Reference Range Interpretation Comments Sodium POC (test code = 41531129) 144 mmol/L 136-145 Potassium POC (test code = 79718205) 3.5 mmol/L 3.5-5.1 Chloride POC (test code = 95039306) 106 mmol/L 98-107 TCO2 POC (test code = 84729757) 27 mmol/L 21-32 --- Urea Nitrogen POC (test code = 07479412) <3 7-18 L Glucose POC (test code = 41612692) 91 mg/dL 74-106 Hemoglobin POC (test code = 55972892) 14.3 g/dL 12-16 Hematocrit POC (test code = 57655387) 42.0 % 37-47 Lab Interpretation (test code = 84087-5) Abnormal [facility] HEAD W/O [id number] 01:51:13IMPRESSION: Head CT:No intracranial abnormalities. Maxillofacial CT:1. [...] Facial trauma, fx suspected Nasal pain (accession [id number]),Seizure (accession [id number])Comparison studies: Maxillofacial CTs dated [...] report.Signed By: Orlando Jane MD, 09/06/2019 1:51 [facility] MAXILLOFACIAL W/O [id number] 01:51:13IMPRESSION: Head CT:No intracranial abnormalities. Maxillofacial CT:1. [...] Facial trauma, fx suspected Nasal pain (accession [id number]),Seizure (accession [id number])Comparison studies: Maxillofacial CTs dated [...] report.Signed By: Orlando Jane MD, 09/06/2019 1:[address] [facility] Drug Jkusyr1772-35-12 01:07:00* Test Item Value Reference Range Interpretation Comments Opiate, Ur (test code = 28488-6) Negative Negative Calibrated Standard: Morphine Positive if urine level > or = 300 ng/dL Amphetamine (test code = 13403-8) Negative Negative Calibrated Standard: D- Methamphetamine Positive if urine level > or = 1000 ng/mL Barbiturate (test code = 84482-2) Negative Negative Calibrated Standard: Secobarbital Positive if urine level is > or = 200 ng/mL Benzodiazepine (test code = 24500-5) Negative Negative Calibrated Standard: Lormethazepam Positive if urine level is > or = 200 ng/mL Cocaine (test code = 26342-6) Negative Negative Calibrated Standard: Benzoylecgonine Positive if urine level > or = 300 ng/dL PCP (test code = 49883-2) Negative Negative C alibrated Standard: Phencyclidine Positive if urine level > or = 25 ng/dL Cannabinoid (test code = 78855-8) Negative Negative Calibrated Standard: 11 nor-delta(9)-THC carboxylic acid Positive if urine level > or = 50 ng/mL Lab Interpretation (test code = 82948-9) Normal [facility] HospitalIthzhbIjtmdqw0951-26-21 01:03:00* Test Item Value Reference Range Interpretation Comments ALCOHOL, SERUM - RESULT (BKR) (test code = 11387528) 0.35 g/dL < 0.10 Lab Interpretation (test code = 75364-6) Abnormal [facility] HospitalSemmkiFvwdlwgsydjix5026-44-89 01:01:00* Test Item Value Reference Range Interpretation Comments Acetaminophen (test code = 61728777) <10.00 10-30 L Please refer to acetaminophen nomogram. Lab Interpretation (test code = 21061-4) Abnormal [facility] NfjycmBnqjxc6143-64-55 01:01:00* Test Item Value Reference Range Interpretation Comments Lipase (test code = 55419667) 40 U/L 11-82 Lab Interpretation (test code = 44122-1) Normal [facility] HospitalFegbzqSeydlmlssz8133-06-51 01:01:00* Test Item Value Reference Range Interpretation Comments Salicylate (test code = 72413859) <2.5 2.8-30 L Lab Interpretation (test code = 72315-4) Abnormal [facility] HospitalComprehensive Metab Pnl(Excludes DBIL)2019-09-06 01:01:00* Test Item Value Reference Range Interpretation Comments Sodium (test code = 2951-2) 141 mmol/L 136-145 Potassium (test code = 2823-3) 5.5 mmol/L 3.5-5.1 H Chloride (test code = 2075-0) 106 mmol/L 98-107 CO2 (test code = 77720692) 25 mmol/L 21-31 Glucose (test code = 20804743) 88 mg/dL 70-110 Calcium (test code = 46788296) 8.3 mg/dL 8.6-10.3 L Urea Nitrogen (test code = 09887442) 5.0 mg/dL 7-25 L Creatinine (test code = 39624177) 0.5 mg/dL 0.6-1.2 L Alkaline Phosphatase (test code = 11459485) 112 U/L 34-104 H ALT (test code = 16921479) 19 U/L 7-52 AST (test code = 18918664) 43 U/L 13-39 H Total Protein (test code = 2885-2) 7.5 g/dL 6-8.3 GFR, Estimated (test code = 85891695) >90 >=90 mL/min/1.73 m2 Albumin (test code = 67235-2) 4.6 g/dL 3.7-5.3 Anion Gap (test code = 86799046) 10 mmol/L 5-16 Lab Interpretation (test code = 17645-7) Abnormal [facility] Dbcl5180-60-86 00:38:00* Test Item Value Reference Range Interpretation Comments (test code = 50120711) Negative Negative Lab Interpretation (test code = 90223-8) Normal [facility] HospitalCBC/Ynun7342-40-93 00:29:00* Test Item Value Reference Range Interpretation [...] 32.8 g/dL 32-36 RDW (test code = 08627-8) 50.2 fL 36.4-46.3 H Platelet (test code = 777-3) 287 K/uL 150-400 Mean Platelet Volume (test code = 08271-8) 9.2 fL 9.4-12.4 L Percent NRBC (test code = 40830681) 0.0 % Neutrophil (test code = 770-8) 42.5 % 34-70 Lymphs (test code = 736-9) 48.5 % 20-50 Monocytes (test code = 5905-5) 6.0 % 5-12 Eos (test code = 713-8) 1.4 % 0.7-5 Basos (test code = 706-2) 1.2 % 0.1-1.2 Immature Granulocytes (test code = 25756597) 0.4 % 0-0.5 Neutrophils (Absolute) (test code = 11747053) 2.43 K/uL 1.56-6.1 3 Lymphs (Absolute) (test code = 42755862) 2.77 K/uL 1.18-3.74 Monocytes(Absolute) (test code = 54402057) 0.34 K/uL 0.24-0.36 Eos (Absolute) (test code = 67361176) 0.08 K/uL 0.04-0.36 Baso (Absolute) (test code = 85148602) 0.07 K/uL 0.01-0.08 Immature Grans (Abs) (test code = 16565967) 0.02 K/uL 0-0.03 Absolute NRBC (test code = 62316549) 0.00 K/uL Lab Interpretation (test code = 12851-7) Abnormal [facility]- XR PELVIS 1/2 [id number] 10:39:00 FAX: Mercy Zaidi [phone] [place]: St: REG Name: MANDY BARTHOLOMEW [facility] : [birth year] Age/S: 33/F [address] [place] [address] Unit #: [id number] Loc: G.[address] [place] [address] Phys: Mercy Daigle Acct: [id number] Dis Date: Status: REG ER PHONE #: [phone] Exam Date: 08/04/2019 1027 FAX #: [phone] Reason: pain s/p slip in shower. Old rib fractures EXAMS: CPT CODE: [id number] XR PELVIS 1/2 VIEWS 97656 Pelvis single view 08/04/2019 HISTORY: Pelvic pain Comparison is made to CT performed 07/19/2019 FINDINGS: Sacroiliac joints and pubic symphysis are inta ct. Superior and inferior rami are intact. Femoral heads are well rounde d. No dislocation is present. IMPRESSION: No acut e injury to bony pelvis identified. SL: [id number] at 1039 Reported and signed by: Karthikeyan Camilo M.D. CC: Mercy PARRA Technologist: Erma Sheppard, RT(R); Kezia Cary RT(R) Trnscrd Date/Time/By: 08/04/2019 (1039) : By: Erika HaskinsBJM4 Orig Print D/T: S: 08/04/2019 (1042) PAG E 1 Signed Report - XR CHEST 1 [id number] 10:38:00 FAX: Mercy Zaidi [phone] [place]: St: REG Name: MANDY BARTHOLOMEW [facility] : [birth year] Age/S: 33/F [address] [place] [address] Unit #: [id number] Loc: G.[address] [address] Phys: Mercy Daigle Acct: [id number] Dis Date: Status: REG ER PHONE #: [phone] Exam Date: 08/04/2019 1027 FAX #: [phone] Reason: pain s/p slip in shower. Old rib fractures EXAMS: CPT CODE: [id number] XR CHEST 1 V 08784 PROCEDURE: CHEST SINGLE VIEW INDICATION: Fall. Left rib pain. COMPARISON: 07/30/2019 FINDINGS: The lungs are clear. The pleura, cardiomediastinal silhouette and bony thorax are normal. No vascular congestion is present. IMPRESSION: No acute cardiopulmonary process. SL: [id number] at 1038 Reported and signed by: Karthikeyan Camilo M.D. CC: Mercy PARRA Technologist: Erma Sheppard, RT(R); Mali Cary RT(R) Trnscrd Date/Time/By: (4405) : By: [email or web address] Orig Print D/T: S: 08/04/2019 (2006) PAGE 1 Signed Report - XR L-SPINE 2/3 [id number] 10:36:00 FAX: Mrecy Zaidi [phone] [place]: St: REG Name: MANDY BARTHOLOMEW [facility] : [birth year] Age/S: 33/F [address] [place] [address] Unit #: [id number] Loc: [place] [address] Phys: Mercy Daigle Acct: [id number] Dis Date: Status: REG ER PHONE #: [phone] Exam Date: 08/04/2019 1027 FAX #: [phone] Reason: pain s/p slip in shower. Old rib fractures EXAMS: CPT CODE: [id number] XR L-SPINE 2/3 VIEWS 22704 Lumbar spine 2 views 08/04/2019 HISTORY: Fall. Back pain. FINDINGS: There is normal al ignment and curvature of the lumbar spine. Vertebral body heights and int ervertebral disc spaces are maintained. Pedicles and spinous processes ar e within normal limits. IMPRESSION: No acute injury to l umbar spine identified. SL: [id number] Electronically Signed by Mónica Camilo on 0 08/04/2019 at 1036 Reported and signed by: Diego Camilo M.D. CC: Mercy PARRA Technologist: Erma Sheppard, RT(R); Mali gomez RT(R) Trnscrd Date/Time/By: 08/04/2019 (0938) : By: [email or web address] Orig Print D/T: S: 08/04/2019 (1039) PAGE 1 Signed Report - CT HEAD/BRAIN W/O [id number] 00:23:00 Name: MANDY ASCENCIO [facility] : 1985 Age/S: 33 / F [place] Unit #: [id number] Loc: [place] [address] Phys: Lisha Nelson DO Acct: [id number] Dis Date: Status: REG ER PHONE #: [phone] Exam Date: 07/31/201912 FAX #: [phone] Reason: intoxication EXAMS: CPT CODE: [id number] CT HEAD/BRAIN W/O CONT 55459 Examination: Noncontrast head CT Indication: Intoxication Comparison: [...] 1 Signed Report (CONTINUED) Name: MANDY ASCENCIO [facility] : 1985 Age/S: 33 / F [place] Unit #: [id number] Loc: [place] [address] Phys: Lisha Nelson DO Acct: [id number] Dis Date: Status: REG ER PHONE #: [phone] Exam Date: 07/31/201912 FAX #: [phone] Reason: intoxication EXAMS: CPT CODE: [id number] CT HEAD/BRAIN W/O CONT 82177 <Continued> at 0023 Reported and signed by: Kim Schumacher M.D. CC: Lisha Nelson DO Technologist:CY CLEMONS CTDI: DLP: Trnscb Date/Time: 07/31/2019 (22) [email or web address] Orig Print D/T: S: 07/31/2019 (0026) PAGE 2 Signed Report BASIC METABOLIC [id number] 00:01:00* Test Item Value Reference Range Interpretation [...] CA) 8.5 mg/dL 8.5-10.1 N HEPATIC FUNCTION [id number] 00:01:00* Test Item Value Reference Range Interpretation [...] due to change in reagent. HCG SERUM [id number] 00:01:00* Test Item Value Reference Range Interpretation Comments HCG SERUM QUAL (test code = HCGQL) NEGATIVE NEGATIVE This HCGQL test is NOT applicable for MALE patients.Check with nurse about probable order error.If Tumor Marker Test needed, nurse should order test "HCGTU"(Test #550.80953) [id number] 00:01:00* Test Item Value Reference Range Interpretation Comments ACETAMINOPHEN (test code = ACET) < 10 mcg/mL 10-30 L A RANGE OF 10-30 mcg/mL IS A THERAPEUTIC RANGE. TOXIC CONCENTRATIONS: >150 mcg/mL AT 4 HOURS AFTER INGESTION >= 50 mcg/mL AT 12 HOURS AFTER INGESTION HGDONXHBAX5227-30-04 00:01:00* Test Item Value Reference Range Interpretation Comments SALICYLATE (test code = CHRIS) 2.8 mg/dL 2.8-20.0 N [id number] 00:01:00* Test Item Value Reference Range Interpretation Comments ALCOHOL (test code = ALC) 371 mg/dL 0.0-3.0 H -- INTERPRETIVE DATA NOTE: POSITIVE SCREENING RESULTS SHOULD BE CONSIDERED PRESUMPTIVE.WHEN COLLECTED FOR MEDICAL PURPOSES ONLY. SPECIMEN WILL NOTBE COLLECTED BY CHAIN OF CUSTODY.IF A CONFIRMATION OF POSITIVE RESULTS IS DESIRED, ACONFIRMATION TEST MUST BE REQUESTED BY THE PHYSICIAN AT ANADDITIONAL CHARGE TO THE PATIENT. URINALYSIS [id number] 23:39:00* Test Item Value Reference Range Interpretation [...] Urine Source? Clean CatchDRUGS OF ABUSE SCREEN [id number] 23:39:00* Test Item Value Reference Range Interpretation [...] Urine Source? Clean Catch- XR CHEST 1 [id number] 23:29:00 FAX: Lisha Nelson DO [place]: B St: REG Name: MANDY BARTHOLOMEW [facility] : [birth year] Age/S: 33/F [address] [facility] Unit #: [id number] Loc: [place] [address] Phys: Lisha Nelson DO Acct: [id number] Dis Date: Status: REG ER PHONE #: [phone] Exam Date: 07/30/2019 2300 FAX #: [phone] Reason: COUGH EXAMS: CPT CODE: [id number] XR CHEST 1 V 06462 EXAM: - XR CHEST 1 V HISTORY: [...] GAEL ORDAZ JR Trnscrd Pedro e/Time/By: 07/30/2019 (6825) : By: [email or web address] Orig Print D/T: S: 2019 (1481) PAGE 1 Signed Report BASIC METABOLIC [id number] 23:26:00* Test Item Value Reference Range Interpretation [...] CA) 8.5 mg/dL 8.5-10.1 N HEPATIC FUNCTION [id number] 23:26:00* Test Item Value Reference Range Interpretation [...] due to change in reagent. HCG SERUM [id number] 23:26:00* Test Item Value Reference Range Interpretation Comments HCG SERUM QUAL (test code = HCGQL) NEGATIVE NEGATIVE This HCGQL test is NOT applicable for MALE patients.Check with nurse about probable order error.If Tumor Marker Test needed, nurse should order test "HCGTU"(Test #550.26600) [id number] 23:26:00* Test Item Value Reference Range Interpretation Comments ACETAMINOPHEN (test code = ACET) < 10 mcg/mL 10-30 L A RANGE OF 10-30 mcg/mL IS A THERAPEUTIC RANGE. TOXIC CONCENTRATIONS: >150 mcg/mL AT 4 HOURS AFTER INGESTION >= 50 mcg/mL AT 12 HOURS AFTER INGESTION [id number] 23:26:00* Test Item Value Reference Range Interpretation Comments SALICYLATE (test code = CHRIS) 2.8 mg/dL 2.8-20.0 N [id number] 23:26:00* Test Item Value Reference Range Interpretation Comments ALCOHOL (test code = ALC) mg/dL 0-3 BASIC METABOLIC [id number] 23:24:00* Test Item Value Reference Range Interpretation [...] CA) 8.5 mg/dL 8.5-10.1 N HEPATIC FUNCTION [id number] 23:24:00* Test Item Value Reference Range Interpretation [...] due to change in reagent. HCG SERUM [id number] 23:24:00* Test Item Value Reference Range Interpretation Comments HCG SERUM QUAL (test code = HCGQL) NEGATIVE [id number] 23:24:00* Test Item Value Reference Range Interpretation Comments ACETAMINOPHEN (test code = ACET) < 10 mcg/mL 10-30 L A RANGE OF 10-30 mcg/mL IS A THERAPEUTIC RANGE. TOXIC CONCENTRATIONS: >150 mcg/mL AT 4 HOURS AFTER INGESTION >= 50 mcg/mL AT 12 HOURS AFTER INGESTION [id number] 23:24:00* Test Item Value Reference Range Interpretation Comments SALICYLATE (test code = CHRIS) 2.8 mg/dL 2.8-20.0 N [id number] 23:24:00* Test Item Value Reference Range Interpretation Comments ALCOHOL (test code = ALC) mg/dL 0-3 URINALYSIS [id number] 23:05:00* Test Item Value Reference Range Interpretation [...] Urine Source? Clean CatchDRUGS OF ABUSE SCREEN [id number] 23:05:00* Test Item Value Reference Range Interpretation [...] <300 ng/mL Urine Source? Clean CatchCBC W/O [id number] 23:00:00* Test Item Value Reference Range Interpretation [...] MPV) 8.6 fL 6.7-11.0 N CBC W/O [id number] 22:55:00* Test Item Value Reference Range Interpretation [...] code = MPV) fL 6.7-11.0 COMPREHENSIVE DRUG [id number] 12:20:00* Test Item Value Reference Range Interpretation Comments PHENYTOIN SCREEN (test code = PHENSQ) <1.0 ug/mL 10.0-20.0 A : Therapeutic 6.0 - 14.0 Detection Limit = 0.6 <0.6 Indicates None Detected ACETAMINOPHEN (test code = ACETSQ) NONE DETECTED AMITRIPTYLINE (test code = SWATHI) <20 ng/mL Not Estab. This test was developed and its performance characteristicsdetermined by [employer]. It has not been cleared orapproved by the Food and Drug Administration. DESIPRAMINE (test code = PEDRO) <20 ng/mL Not Estab. DIAZEPAM (test code = DIAZT) <0.1 ug/mL 0.1-0.9 A Therapeutic: Chlordiazepoxide < 1.0 Norchlordiazepoxide < 0.7 Demoxepam < 0.6 Nordiazepam < 1.5 Diazepam < 1.0 Toxic: (Total, Parent+Met) > 5.0 NORDIAZEPAM (test code = NORDIAZ) <0.1 ug/mL 0.1-1.4 A Performed by:[facility] ([facility]) [address] [facility] [address], [place], [place] DOXEPIN (test code = DOXT) <20 ng/mL Not Estab. IMIPRAMINE (test code = IMIP) <20 ng/mL Not Estab. NORTRIPTYLINE (test code = NORT) <20 ng/mL 50-150 A NORDOXEPIN (test code = PRATIK) <20 ng/mL Not Estab. Performed At: [address] [id number] Sanjai MD Ph:[phone] by:[facility] ([facility]) [address] [facility] [address], [place], [place] PENTOBARBITAL (NEMBUTAL) (test code = PENTO) <1 ug/mL 1-5 A Detection Limit = 1 SALICYLATE (test code = SALSQ) None Detected ug/mL 30-250 Detection Limit = 5This test was developed and its performance characteristicsdetermined by [employer]. It has not been cleared orapproved by [...] was developed and its performance characteristicsdetermined by [facility]. It has not been cleared orapproved by the Food and Drug Administration. Detection Limit = 1 PHENOBARBITAL (test code = PHENOB) <1 ug/mL 15-40 A Detection Limit = 1 [id number] 11:38:00* Test Item Value Reference Range Interpretation Comments GLUBED (test code = GLUBED) 84 mg/dL 74-106 N Performed by certified nuclear station operator at [facility] [id number] 04:26:00* Test Item Value Reference Range Interpretation Comments PHOSPHORUS (test code = PHOS) 4.0 mg/dL 2.5-4.9 N [id number] 04:26:00* Test Item Value Reference Range Interpretation Comments MAGNESIUM (test code = MAG) 2.4 mg/dL 1.8-2.4 N BASIC METABOLIC [id number] 03:43:00* Test Item Value Reference Range Interpretation [...] CA) 8.9 mg/dL 8.5-10.1 N BASIC METABOLIC [id number] 03:37:00* Test Item Value Reference Range Interpretation [...] code = CA) mg/dL 8.5-10.1 CBC W/O [id number] 03:24:00* Test Item Value Reference Range Interpretation [...] MPV) 9.1 fL 6.7-11.0 N CBC W/O [id number] 03:22:00* Test Item Value Reference Range Interpretation [...] VOLUME (test code = MPV) fL 6.7-11.0 [id number] 17:35:00* Test Item Value Reference Range Interpretation Comments GLUBED (test code = GLUBED) 97 mg/dL 74-106 N Performed by certified nuclear station operator at [facility] [id number] 11:21:00* Test Item Value Reference Range Interpretation Comments GLUBED (test code = GLUBED) 107 mg/dL 74-106 H Performed by certified nuclear station operator at [facility] [id number] 09:34:00* Test Item Value Reference Range Interpretation Comments GLUBED (test code = GLUBED) 87 mg/dL 74-106 N Performed by certified nuclear station operator at [facility] COMPREHENSIVE METABOLIC [id number] 05:15:00* Test Item Value Reference Range Interpretation [...] due to change in reagent. COMPREHENSIVE METABOLIC [id number] 05:02:00* Test Item Value Reference Range Interpretation [...] code = ALKP) IUnit/L 45-117 COMPREHENSIVE DRUG [id number] 03:07:00* Test Item Value Reference Range Interpretation Comments PHENYTOIN SCREEN (test code = PHENSQ) <1.0 ug/mL 10.0-20.0 A : Therapeutic 6.0 - 14.0 Detection Limit = 0.6 <0.6 Indicates None Detected ACETAMINOPHEN (test code = ACETSQ) AMITRIPTYLINE (test code = SWATHI) <20 ng/mL Not Estab. This test was developed and its performance characteristicsdetermined by [employer]. It has not been cleared orapproved by the Food and Drug Administration. DESIPRAMINE (test code = PEDRO) <20 ng/mL Not Estab. DIAZEPAM (test code = DIAZT) <0.1 ug/mL 0.1-0.9 A Therapeutic: Chlordiazepoxide < 1.0 Norchlordiazepoxide < 0.7 Demoxepam < 0.6 Nordiazepam < 1.5 Diazepam < 1.0 Toxic: (Total, Parent+Met) > 5.0 NORDIAZEPAM (test code = NORDIAZ) <0.1 ug/mL 0.1-1.4 A Performed by:[facility] ([facility]) [address] [address], [place], [place] DOXEPIN (test code = DOXT) <20 ng/mL Not Estab. IMIPRAMINE (test code = IMIP) <20 ng/mL Not Estab. NORTRIPTYLINE (test code = NORT) <20 ng/mL 50-150 A NORDOXEPIN (test code = PRATIK) <20 ng/mL Not Estab. Performed At: [address] [id number] Levine MD Ph:[phone] by:[facility] ([facility]) [address] [address], [place] PENTOBARBITAL (NEMBUTAL) (test code = PENTO) <1 ug/mL 1-5 A Detection Limit = 1 SALICYLATE (test code = SALSQ) None Detected ug/mL 30-250 Detection Limit = 5This test was developed and its performance characteristicsdetermined by [facility]. It has not been cleared orapproved by [...] was developed and its performance characteristicsdetermined by [employer]. It has not been cleared orapproved by the Food and Drug Administration. Detection Limit = 1 PHENOBARBITAL (test code = PHENOB) <1 ug/mL 15-40 A Detection Limit = 1 [id number] 02:21:00* Test Item Value Reference Range Interpretation Comments PHOSPHORUS (test code = PHOS) 4.4 mg/dL 2.5-4.9 N [id number] 02:21:00* Test Item Value Reference Range Interpretation Comments MAGNESIUM (test code = MAG) 1.7 mg/dL 1.8-2.4 L CBC W/O [id number] 02:04:00* Test Item Value Reference Range Interpretation [...] MPV) 9.7 fL 6.7-11.0 N BASIC METABOLIC [id number] 02:00:00* Test Item Value Reference Range Interpretation [...] CA) 8.5 mg/dL 8.5-10.1 N CBC W/O [id number] 01:56:00* Test Item Value Reference Range Interpretation [...] VOLUME (test code = MPV) fL 6.7-11.0 [id number] 20:09:00* Test Item Value Reference Range Interpretation Comments GLUBED (test code = GLUBED) 126 mg/dL 74-106 H Performed by certified nuclear station operator at [facility] [id number] 16:29:00* Test Item Value Reference Range Interpretation Comments GLUBED (test code = GLUBED) 142 mg/dL 74-106 H Performed by certified nuclear station operator at [facility] [id number] 12:21:00* Test Item Value Reference Range Interpretation Comments GLUBED (test code = GLUBED) 125 mg/dL 74-106 H Performed by certified nuclear station operator at [facility] PROCALCITONIN (PCT)2019-07-23 05:08:00* Test Item Value Reference [...] into account the patients history. BASIC METABOLIC [id number] 03:07:00* Test Item Value Reference Range Interpretation [...] code = CA) 8.4 mg/dL 8.5-10.1 L [id number] 03:07:00* Test Item Value Reference Range Interpretation Comments PHOSPHORUS (test code = PHOS) 4.0 mg/dL 2.5-4.9 N [id number] 03:07:00* Test Item Value Reference Range Interpretation Comments MAGNESIUM (test code = MAG) 2.1 mg/dL 1.8-2.4 N CBC W/O [id number] 02:40:00* Test Item Value Reference Range Interpretation [...] fL 6.7-11.0 N - XR CHEST 1 [id number] 08:26:00 FAX: Jr Ford [phone] [place]: St: ADM FAX: Y Robert Ramires MD [phone] Name: MANDY ASCENCIO [facility] : 1985 Age/S: 33/F [address] [facility] Unit #: [id number] Loc: [address] [address] Phys: Jr Ford Acct: [id number] Dis Date: Status: ADM IN PHONE #: [phone] Exam Date: 07/22/2019 0345 FAX #: [phone] Reason: updated pulm view EXAMS: CPT CODE: [id number] XR CHEST 1 V 32877 REASON FOR EXAM: updated pulm view Exam [...] removal of enteric noe ction tube. Location: [facility] at 0826 Reported and signed by: José Miguel Cheng MD CC: Jr Ford; Robert Ramires MD Technologist: Armin Patricio RT(R); ANUM GUARDADO RT(R) T rnscrd Date/Time/By: 07/22/2019 (08) : By: [email or web address] Orig Print D/T: S: 07/22/2019 (9362) PAGE 1 Sign ed Report BASIC METABOLIC [id number] 02:41:00 * Test Item Value Reference Range [...] code = CA) 7.4 mg/dL 8.5-10.1 L [id number] 02:41:00* Test Item Value Reference Range Interpretation Comments PHOSPHORUS (test code = PHOS) 4.6 mg/dL 2.5-4.9 N [id number] 02:41:00* Test Item Value Reference Range Interpretation Comments MAGNESIUM (test code = MAG) 1.8 mg/dL 1.8-2.4 N CBC W/O [id number] 02:35:00* Test Item Value Reference Range Interpretation [...] MPV) 10.8 fL 6.7-11.0 N BASIC METABOLIC [id number] 02:34:00* Test Item Value Reference Range Interpretation [...] code = CA) 7.4 mg/dL 8.5-10.1 L [id number] 02:34:00* Test Item Value Reference Range Interpretation Comments PHOSPHORUS (test code = PHOS) mg/dL 2.5-4.9 [id number] 02:34:00* Test Item Value Reference Range Interpretation Comments MAGNESIUM (test code = MAG) mg/dL 1.8-2.4 [id number] 11:24:00* Test Item Value Reference Range Interpretation Comments GLUBED (test code = GLUBED) 92 mg/dL 74-106 N Performed by certified nuclear station operator at [facility] [id number] 08:02:00* Test Item Value Reference Range Interpretation Comments GLUBED (test code = GLUBED) 88 mg/dL 74-106 N Performed by certified nuclear station operator at [facility] - XR CHEST 1 [id number] 07:43:00 FAX: Jr Ford [phone] [place]: B St: ADM FAX: Y Robert Ramires MD [phone] Name: MANDY ASCENCIO [facility] : 1985 Age/S: 33/F [address] Unit #: [id number] Loc: V.[address] [address] Phys: Jr Ford Acct: [id number] Dis Date: Status: ADM IN PHONE #: [phone] Exam Date: 07/21/2019 0427 FAX #: [phone] Reason: updated pulm view EXAMS: CPT CODE: [id number] XR CHEST 1 V 34478 EXAM: Chest x-ray, one view; INFORMATION: Rib fracture; respiratory failure; IMPRESSION: No change; well-positioned endotracheal and nasogastric tubes; No evidence of acute cardiothoracic abnormalities. Location code: [facility] at 0743 Reported and signed by: Quentin Ervin M.D. CC: Jr Ford; Robert Ramires MD Technologist: Armin Patricio RT(R); ANUM GUARDADO RT(R) Trncard Date/Time/By: 07/21/2019 (0743) : By: Briana Orig Print D/T: S: 07/21/2019 (0762) PAGE 1 Signed Report [id number] 02:50:00* Test Item Value Reference Range Interpretation Comments PHOSPHORUS (test code = PHOS) 3.0 mg/dL 2.5-4.9 N [id number] 02:50:00* Test Item Value Reference Range Interpretation Comments MAGNESIUM (test code = MAG) 2.4 mg/dL 1.8-2.4 N BASIC METABOLIC [id number] 02:12:00* Test Item Value Reference Range Interpretation [...] CA) 7.8 mg/dL 8.5-10.1 L BASIC METABOLIC [id number] 02:08:00* Test Item Value Reference Range Interpretation [...] code = CA) mg/dL 8.5-10.1 CBC W/O [id number] 02:05:00* Test Item Value Reference Range Interpretation [...] MPV) 9.6 fL 6.7-11.0 N CBC W/O [id number] 01:54:00* Test Item Value Reference Range Interpretation [...] fL 6.7-11.0 - XR ELBOW 2 VIEWS [id number] 16:39:00 FAX: Gregor Coello [place]: B St: ADM FAX: Robert Stock MD [phone] Name: MANDY ASCENCIO [facility] : 1985 Age/S: 33/F [address] Unit #: [id number] Loc: V.[address] [place] [address] Phys: Gregor Tijerina Acct: [id number] Dis Date: Status: ADM IN PHONE #: [phone] Exam Date: 07/20/2019 1550 FAX #: [phone] Reason: possible fracture EXAMS: CPT CODE: [id number] XR ELBOW [address] [place] [address] REASON FOR EXAM: possible fracture EXAM ORDER DATE: 07/20/2019 12:00 AM Ordering: FIDEL Hurtado Attending:Robert Ramires MD Location:[facility] PROCEDURE: - XR ELBOW 2 VIEWS BI FINDINGS: 5 views of the bilateral elbows were obtained. The osseous structures are unremarkable in size and shape. The joint spaces are maintained. No evidence of fracture. There is normal alignment of the bilateral elbow joints IMPRESSION: Unremarkable bilateral elbows at 2144 Reported and signed by: Toro Reed M.D. CC: Gregor Tijerina; Robert Ramires MD Technologist: NITIN GABRIEL, RT(R); NED MCDANIELS RT(R) Trnscrd Date/Time/By: 07/20/2019 (5854) : By: Ana Cristina Orig Print D/T: S: 07/23/2019 (1245) PAGE 1 Signed Report - XR CHEST 1 [id number] 16:37:00 FAX: Robert Stock MD [phone] [place]: B St: ADM Name: MANDY BARTHOLOMEW [facility] : [birth year] Age/S: 33/F [address] [facility] #: [id number] Loc: V.[address] [place] [address] Phys: Robert Ramires MD Acct: [id number] Dis Date: Status: ADM IN PHONE #: [phone] Exam Date: 07/20/2019 1545 FAX #: [phone] Reason: left rib fractures EXAMS: CPT CODE: [id number] XR CHEST 1 V 62992 REASON FOR EXAM: left rib fractures EXAM ORDER DATE: 07/20/2019 12:00 AM Orderi ng: Robert Ramires MD Attending:Robert Ramires MD Location:[facility] PROCEDURE: - XR CHEST 1 V COMPARISON: [...] Technologist: NITIN GABRIEL RT(R); NED MCDANIELS RT(R) [facility] Date/Time/By: 07/20/2019 (6027) : By: Ana Cristina Orig Print D/T : S: 07/23/2019 (1254) PAGE 1 Sig myrna Report - XR KNEE 1 OR 2 V [id number] 16:36:00 FAX: Gregor Coello [place]: B St: ADM FAX: Robert Stock MD [phone] Name: MANDY ASCENCIO [facility] : 1985 Age/S: 33/F [address] [facility] Unit #: [id number] Loc: V.[address] [place] [address] Phys: Gregor Tijerina Acct: [id number] Dis Date: Status: ADM IN PHONE #: [phone] Exam Date: 07/20/2019 1551 FAX #: [phone] Reason: possible fracture EXAMS: CPT CODE: [id number] XR KNEE 1 [place] [address] [place] [address] REASON FOR EXAM: possible fracture EXAM ORDER DATE: 07/20/2019 12:00 AM Ordering: FIDEL Hrutado Attending:Robert Ramires MD Location:[facility] PROCEDURE: - XR KNEE 1 OR 2 [...] Technologist: NITIN GABRIEL, RT(R); NED MCDANIELS RT(R) Trncard Date/Time/By: 07/20/2019 (7916) : By: KathieL Orig Print D/T: S: 07/23/2019 (7770) PAGE 1 Signed Report Coronavirus 2019 nCoV [id number] 12:46:00* Test Item Value Reference Range Interpretation Comments Coronavirus 2019 nCoV Bedside (test code = COVNONPUIBED) Negative LAB.JQ 07/20/19 [id number] 10:34:00* Test Item Value Reference Range Interpretation Comments ALCOHOL (test code = ALC) 28 mg/dL 0.0-3.0 H -- INTERPRETIVE DATA NOTE: POSITIVE SCREENING RESULTS SHOULD BE CONSIDERED PRESUMPTIVE.WHEN COLLECTED FOR MEDICAL PURPOSES ONLY. SPECIMEN WILL NOTBE COLLECTED BY CHAIN OF CUSTODY.IF A CONFIRMATION OF POSITIVE RESULTS IS DESIRED, ACONFIRMATION TEST MUST BE REQUESTED BY THE PHYSICIAN AT ANADDITIONAL CHARGE TO THE PATIENT. LACTIC [id number] 08:00:00* Test Item Value Reference Range Interpretation Comments LACTIC ACID (test code = LACT) 1.7 mmol/L 0.4-1.9 N BASIC METABOLIC [id number] 07:50:00* Test Item Value Reference Range Interpretation [...] code = CA) 7.8 mg/dL 8.5-10.1 L [id number] 07:50:00* Test Item Value Reference Range Interpretation Comments PHOSPHORUS (test code = PHOS) 2.5 mg/dL 2.5-4.9 N [id number] 07:50:00* Test Item Value Reference Range Interpretation Comments MAGNESIUM (test code = MAG) 1.7 mg/dL 1.8-2.4 L CALCIUM [id number] 07:50:00* Test Item Value Reference Range Interpretation Comments CALCIUM IONIZED (test code = JOAO) 1.13 mmol/L 1.12-1.32 N BASIC METABOLIC [id number] 07:46:00* Test Item Value Reference Range Interpretation [...] CALCIUM (test code = CA) mg/dL 8.5-10.1 [id number] 07:46:00* Test Item Value Reference Range Interpretation Comments PHOSPHORUS (test code = PHOS) mg/dL 2.5-4.9 [id number] 07:46:00* Test Item Value Reference Range Interpretation Comments MAGNESIUM (test code = MAG) mg/dL 1.8-2.4 CALCIUM [id number] 07:46:00* Test Item Value Reference Range Interpretation Comments CALCIUM IONIZED (test code = JOAO) 1.13 mmol/L 1.12-1.32 N BASIC METABOLIC [id number] 07:45:00* Test Item Value Reference Range Interpretation [...] CALCIUM (test code = CA) mg/dL 8.5-10.1 [id number] 07:45:00* Test Item Value Reference Range Interpretation Comments PHOSPHORUS (test code = PHOS) mg/dL 2.5-4.9 [id number] 07:45:00* Test Item Value Reference Range Interpretation Comments MAGNESIUM (test code = MAG) mg/dL 1.8-2.4 CALCIUM [id number] 07:45:00* Test Item Value Reference Range Interpretation Comments CALCIUM IONIZED (test code = JOAO) mmol/L 1.12-1.32 CBC W/O [id number] 07:33:00* Test Item Value Reference Range Interpretation [...] = MPV) 9.1 fL 6.7-11.0 N URINALYSIS [id number] 00:49:00* Test Item Value Reference Range Interpretation [...] Urine Source? Clean CatchDRUGS OF ABUSE SCREEN [id number] 00:49:00* Test Item Value Reference Range Interpretation [...] NEGATIVE <300 ng/mL Urine Source? Clean CatchURINALYSIS [id number] 00:23:00* Test Item Value Reference Range Interpretation [...] Urine Source? Clean CatchDRUGS OF ABUSE SCREEN [id number] 00:23:00* Test Item Value Reference Range Interpretation [...] <300 ng/mL Urine Source? Clean CatchBASIC METABOLIC [id number] 00:19:00* Test Item Value Reference Range Interpretation [...] CA) 8.7 mg/dL 8.5-10.1 N HEPATIC FUNCTION [id number] 00:19:00* Test Item Value Reference Range Interpretation [...] due to change in reagent. HCG SERUM [id number] 00:19:00* Test Item Value Reference Range Interpretation [...] 200,000 MIU/ML2-3 MONTHS AFTER CONCEPTION 10,000-100,000 MIU/ML [id number] 00:19:00* Test Item Value Reference Range Interpretation Comments TROPONIN-I (test code = TROPI) <0.015 ng/mL 0-0.045 N [id number] 00:19:00* Test Item Value Reference Range Interpretation Comments ACETAMINOPHEN (test code = ACET) < 10 mcg/mL 10-30 L A RANGE OF 10-30 mcg/mL IS A THERAPEUTIC RANGE. TOXIC CONCENTRATIONS: >150 mcg/mL AT 4 HOURS AFTER INGESTION >= 50 mcg/mL AT 12 HOURS AFTER INGESTION [id number] 00:19:00* Test Item Value Reference Range Interpretation Comments SALICYLATE (test code = CHRIS) 3.5 mg/dL 2.8-20.0 N [id number] 00:19:00* Test Item Value Reference Range Interpretation [...] ANADDITIONAL CHARGE TO THE PATIENT. ARTERIAL BLOOD [id number] 00:07:00* Test Item Value Reference Range Interpretation [...] 50.6 mm Hg - XR CHEST 1 [id number] 23:53:00 FAX: Geoffrey Bae MD [phone] [place]: St: REG Name: MANDY BARTHOLOMEW [facility] : [birth year] Age/S: 33/F [address] Unit #: [id number] Loc: [place] [address] Phys: Geoffrey Bae MD Acct: [id number] Dis Date: Status: REG ER PHONE #: [phone] Exam Date: 07/19/2019 2342 FAX #: [phone] Reason: CHEST PAIN EXAMS: CPT CODE: [id number] XR CHEST 1 V 73467 R16 EXAM: - XR CHEST 1 V [...] MD Technologist: Bhavana Sneed Trnscrd Date/Time/By: 07/19/2019 (7280) : By: [email or web address] Orig Print D/T: S: 07/19/2019 (2328) PAGE 1 Signed Report - CT ABD PELVIS W/[id number] 23:51:00 Name: MANDY ASCENCIO [facility] : 1985 Age/S: 33 / F [address] Unit #: [id number] Loc: [place] [address] Phys: Geoffrey Bae MD Acct: [id number] Dis Date: Status: REG ER PHONE #: [phone] Exam Date: 07/19/20195 FAX #: [phone] Reason: abd pain - fall > 20 feet unresponsive EXAMS: CPT CODE: [id number] CT ABD PELVIS W/CONT [address] CHEST WITHOUT CONTRAST HISTORY: chest [...] 1 Signed Report (CONTINUED) Name: MANDY ASCENCIO [facility] : 1985 Age/S: 33 / F [address] [facility] Unit #: [id number] Loc: [place] [address] Phys: Geoffrey Bae MD Acct: [id number] Dis Date: Status: REG ER PHONE #: [phone] Exam Date: 07/19/20191 FAX #: [phone] Reason: abd pain - fall > 20 feet unresponsive EXAMS: CPT CODE: [id number] CT ABD PELVIS W/CONT 61106 < Continued> Nondisplaced fractures in the left eighth through 10th ribs. Otherwise, no acute chest, abdomen or pelvis abnormalities. at 2351 Reported and signed by: Sarmad Pelletier MD CC: Geoffrey Bae MD Technologist:CY SOLORZANO CT CTDI: DLP: Trnscb Date/Time: 07/19/2019 (571) [email or web address] Orig Print D/T: S: 07/19/2019 (0172) PAGE 2 Signed Report - CT CHEST W/[id number] 23:51:00 Name: MANDY ASCENCIO [facility] : 1985 Age/S: 33 / F [address] [facility] Unit #: [id number] Loc: [place] [address] Phys: Geoffrey Bae MD Acct: [id number] Dis Date: Status: REG ER PHONE #: [phone] Exam Date: 07/19/2019 231 FAX #: [phone] Reason: chest pain - fall > 20 feet unresponsive EXAMS: CPT CODE: [id number] CT CHEST W/CONTRAST [address] CHEST WITHOUT CONTRAST HISTORY: chest [...] 1 Signed Report (CONTINUED) Name: MANDY ASCENCIO [facility] : 1985 Age/S: 33 / F [address] [facility] Unit #: [id number] Loc: [place] [address] Phys: Geoffrey Bae MD Acct: [id number] Dis Date: Status: REG ER PHONE #: [phone] Exam Date: 07/19/2019 2315 FAX #: [phone] Reason: chest pain - fall > 20 feet unresponsive EXAMS: CPT CODE: [id number] CT CHEST W/CONTRAST 40719 < Continued> Nondisplaced fractures in the left eighth through 10th ribs. Otherwise, no acute chest, abdomen or pelvis abnormalities. at 2351 Reported and signed by: Sarmad Pelletier MD CC: Geoffrey Bae MD Technologist:CY CLEMONS CTDI: DLP: Trnscb Date/Time: 07/19/2019 (2350) [email or web address] Orig Print D/T: S: 07/19/2019 (7588) PAGE 2 Signed Report BASIC METABOLIC [id number] 23:31:00* Test Item Value Reference Range Interpretation [...] CA) 8.7 mg/dL 8.5-10.1 N HEPATIC FUNCTION [id number] 23:31:00* Test Item Value Reference Range Interpretation [...] due to change in reagent. HCG SERUM [id number] 23:31:00* Test Item Value Reference Range Interpretation [...] 200,000 MIU/ML2-3 MONTHS AFTER CONCEPTION 10,000-100,000 MIU/ML NBJFJNCO-K0913-13-14 23:31:00* Test Item Value Reference Range Interpretation Comments TROPONIN-I (test code = TROPI) <0.015 ng/mL 0-0.045 N KNYRRODHBQNNF5543-01-92 23:31:00* Test Item Value Reference Range Interpretation Comments ACETAMINOPHEN (test code = ACET) < 10 mcg/mL 10-30 L A RANGE OF 10-30 mcg/mL IS A THERAPEUTIC RANGE. TOXIC CONCENTRATIONS: >150 mcg/mL AT 4 HOURS AFTER INGESTION >= 50 mcg/mL AT 12 HOURS AFTER INGESTION MIIKXXJKXO5495-77-38 23:31:00* Test Item Value Reference Range Interpretation Comments SALICYLATE (test code = CHRIS) 3.5 mg/dL 2.8-20.0 N [id number] 23:31:00* Test Item Value Reference Range Interpretation Comments ALCOHOL (test code = ALC) mg/dL 0-3 - CT L-SPINE W/O [id number] 23:26:00 Name: MANDY ASCENCIO [facility] : 1985 Age/S: 33 / F [address] [facility] Unit #: [id number] Loc: [place] [address] Phys: Geoffrey Bae MD Acct: [id number] Dis Date: Status: REG ER PHONE #: [phone] Exam Date: 07/19/2019 2315 FAX #: [phone] Reason: back pain fall paralysis EXAMS: CPT CODE: [id number] CT L-SPINE W/O CONTRAST 03039 Exam: CT L-spine. Location: H 12 History: [...] (2326) Maricruz Orig Print D/T: S: 07/19/2019 (4595) PAGE 1 Signed Report - CT T-SPINE W/O CONTRAST 2019-07-19 23:26:00 Name: MANDY ASCENCIO [facility] : 1985 Age/S: 33 / F [address] Unit #: [id number] Loc: [place] [address] Phys: Geoffrey Bae MD Acct: [id number] Dis Date: Status: REG ER PHONE #: [phone] Exam Date: 07/19/2019 231 FAX #: [phone] Reason: back pain fall paralysis EXAMS: CPT CODE: [id number] CT T-SPINE W/O CONTRAST 11150 Exam: CT T-spine. Location: H 12 History: [...] (2325) Maricruz Orig Print D/T: S: 07/19/2019 (3875) PAGE 1 Signed Report - CT C-SPINE W/O [id number] 23:23:00 Name: MANDY ASCENCIO [facility] : 1985 Age/S: 33 / F [address] Unit #: [id number] Loc: [place] [address] Phys: Geoffrey Bae MD Acct: [id number] Dis Date: Status: REG ER PHONE #: [phone] Exam Date: 07/19/2019 231 FAX #: [phone] Reason: Neck Pain EXAMS: CPT CODE: [id number] CT C-SPINE W/O CONTRAST 19322 Exam: CT C-spine. Location: H 12 History: [...] Technologist:CY CLEMONS CTDI: DLP: Trnscb Date/Time: 07/19/2019 (355) t.SDR.FC Orig Print D/T: S: 07/19/2019 (2187) PAGE 1 Signed Report PROTHROMBIN [id number] 23:22:00* Test Item Value Reference Range Interpretation [...] (2.5-3.5) IS PATIENT ON ANTICOAGULANTS? NTHROMBOPLASTIN TIME [id number] 23:22:00* Test Item Value Reference Range Interpretation Comments THROMBOPLASTIN TIME PARTIAL (test code = PTT) 28.7 seconds 23.0-37. 0 N IS PATIENT ON ANTICOAGULANTS? N- CT HEAD/BRAIN W/O [id number] 23:22:00 Name: MANDY ASCENCIO [facility] : 1985 Age/S: 33 / F [address] [facility] Unit #: [id number] Loc: [place] [address] Phys: Blaze Bae MD Acct: [id number] Di s Date: Status: REG ER PHONE #: Exam Date: 07/19/2019 0982 FAX #: Reason: HEADACHE EXAMS: CPT CODE: [id number] CT HEAD/BRAIN W/O CONT 61390 Exam: CT head without con trast. Location: [...] t:CY SOLORZANO CT CTDI: DLP: Trnscb Date/Time: (9912) DiannaFC Orig Print D/T: S: 07/19/2019 (2 325) PAGE 1 Signed Report BASIC METABOLIC [id number] 23:14:00* Test Item Value Reference Range Interpretation [...] code = CA) mg/dL 8.5-10.1 HEPATIC FUNCTION [id number] 23:14:00* Test Item Value Reference Range Interpretation [...] code = ALKP) IUnit/L 45-117 HCG SERUM [id number] 23:14:00* Test Item Value Reference Range Interpretation Comments HCG SERUM BETA (test code = HCG) mIU/mL 0-3 [id number] 23:14:00* Test Item Value Reference Range Interpretation Comments TROPONIN-I (test code = TROPI) ng/mL 0-0.045 MEHSRIPPNSGBD2841-88-39 23:14:00* Test Item Value Reference Range Interpretation Comments ACETAMINOPHEN (test code = ACET) mcg/mL 10-30 AUJDOGOKER1344-44-88 23:14:00* Test Item Value Reference Range Interpretation Comments SALICYLATE (test code = CHRIS) mg/dL 2.8-20.0 [id number] 23:14:00* Test Item Value Reference Range Interpretation Comments ALCOHOL (test code = ALC) mg/dL 0-3 CBC W/O [id number] 22:57:00* Test Item Value Reference Range Interpretation [...] MPV) 9.3 fL 6.7-11.0 N CBC W/O [id number] 22:54:00* Test Item Value Reference Range Interpretation [...] VOLUME (test code = MPV) fL 6.7-11.0 [id number] 20:06:00* Test Item Value Reference Range Interpretation Comments GLUBED (test code = GLUBED) 149 mg/dL 74-106 H Performed by certified nuclear station operator at [facility] BASIC METABOLIC [id number] 08:50:00* Test Item Value Reference Range Interpretation [...] result is a direct measurement.========= BASIC METABOLIC YDODA8844-64-03 08:46:00* Test Item Value Reference Range Interpretation [...] code = LDL) mg/dL 100-129 CBC W/AUTO [id number] 08:19:00* Test Item Value Reference Range Interpretation [...] NRBC#) 0.00 K/mm3 0.0-0.1 N CBC W/AUTO [id number] 08:18:00* Test Item Value Reference Range Interpretation [...] # (test code = BA#) K/mm3 0.0-0.2 [id number] 21:30:00* Test Item Value Reference Range Interpretation Comments GLUBED (test code = GLUBED) 81 mg/dL 74-106 N Performed by certified nuclear station operator at [facility] DRUGS OF ABUSE SCREEN [id number] 21:05:00* Test Item Value Reference Range Interpretation [...] NEGATIVE <300 ng/mL DRUGS OF ABUSE SCREEN [id number] 20:49:00* Test Item Value Reference Range Interpretation [...] (test code = METHAURN) NEGATIVE <300 ng/mL [id number] 20:44:00* Test Item Value Reference Range Interpretation Comments GLYCOSYLATED HEMOGLOBIN (HA1C) (test code = GLYHGB) 5.1 % HbA1 SUGGESTED DIAGNOSIS: HbA1C (%) Diabetic >6.4Prediabetes 5.7 - 6.4Normal <5.7 ESTIMATED AVERAGE GLUCOSE (test code = EAG) 100 MG/DL [id number] 20:36:00* Test Item Value Reference Range Interpretation [...] TO THE PATIENT. - CTA CHEST FOR [id number] 17:54:00 Name: MANDY ASCENCIO [facility] : 1985 Age/S: 33 / F [address] [facility] Unit #: [id number] Loc: [place] [address] Phys: Edgar Lerma DO Acct: [id number] Dis Date: Status: REG ER PHONE #: [phone] Exam Date: 07/17/2019 2218 FAX #: [phone] Reason: hypoxic, tachycardic, clear CXR, evaluate for P EXAMS: CPT CODE: [id number] [place] [address] REASON FOR EXAM: hypoxic, tachycardic, clear CXR, evaluate for PE EXAM ORDER DATE: 07/17/2019 4:17 PM Ordering: Edgar Lerma DO Attending:Edgar Lerma DO Location:[facility] COMPARISON: PROCEDURE: - CTA CHEST FOR PE [...] 07/05 (1800) PAGE 1 Signed Report URINALYSIS [id number] 16:15:00* Test Item Value Reference Range Interpretation Comments UA COLOR (test code = COLU) [place] YELLOW UA APPEARANCE (test code = APPU) [...] into account the patients history. B-TYPE NATRIURETIC [id number] 15:48:00* Test Item Value Reference Range Interpretation Comments B-TYPE NATRIURETIC PEPTIDE (test code = BNP) 20.39 pgram/mL 0-100 N - CT HEAD/BRAIN W/O [id number] 15:44:00 Name: MANDY ASCENCIO [facility] : 1985 Age[facility]S: 33 [facility] [address] [facility] [id number] Loc: [place] [address] Phys: Edgar Lerma DO Acct: [id number] Dis Date: Status: REG ER PHONE #: [phone] Exam Date: 07/17/2019 1542 FAX #: [phone] Reason: Altered Mental Status EXAMS: CPT CODE: [id number] CT HEAD/BRAIN W/O CONT 80413 REASON FOR EXAM: Altered Mental Status EXAM ORDER DATE: 07/17/2019 2:03 PM Ordering: Edgar Lerma DO Attending:Edgar Lerma DO Location:[facility] PROCEDURE: - CT HEAD/BRAIN W/O CONT COMPARISON: [...] Urrutia CTDI: DLP: Trnscb Date/Time: 07/17/2019 ( 9241) t.CINTHYA.VTL Orig Print D/T: S: 07/17/2019 (4674) PAGE 1 Signed Report LACTIC [id number] 15:37:00* Test Item Value Reference Range Interpretation Comments LACTIC ACID (test code = LACT) 1.9 mmol/L 0.4-1.9 N HEPATIC FUNCTION [id number] 15:37:00* Test Item Value Reference Range Interpretation [...] code = LDH) 201 IUnit/L 84-246 N [id number] 15:37:00* Test Item Value Reference Range Interpretation Comments LIPASE (test code = LIP) 81 U/L 73.0-393.0 N SCRTUHWR-B0607-36-12 15:37:00* Test Item Value Reference Range Interpretation Comments TROPONIN-I (test code = TROPI) <0.015 ng/mL 0-0.045 N KAKVZGBH3083-96-95 15:37:00* Test Item Value Reference Range Interpretation Comments FERRITIN (test code = KYLE) 12 ng/mL 8-388 N C REACTIVE LSJNDVN6193-57-50 15:37:00* Test Item Value Reference Range Interpretation Comments C REACTIVE PROTEIN (test code = CRP) 0.34 mg/dL 0-0.3 H BASIC METABOLIC [id number] 15:27:00* Test Item Value Reference Range Interpretation [...] CA) 8.2 mg/dL 8.5-10.1 L HCG SERUM [id number] 15:27:00* Test Item Value Reference Range Interpretation Comments HCG SERUM QUAL (test code = HCGQL) NEGATIVE NEGATIVE This HCGQL test is NOT applicable for MALE patients.Check with nurse about probable order error.If Tumor Marker Test needed, nurse should order test "HCGTU"(Test #[id number]) BASIC METABOLIC [id number] 15:26:00* Test Item Value Reference Range Interpretation [...] CA) 8.2 mg/dL 8.5-10.1 L HCG SERUM [id number] 15:26:00* Test Item Value Reference Range Interpretation Comments HCG SERUM QUAL (test code = HCGQL) NEGATIVE Coronavirus 2018 nCoV Axlmrmy7327-31-57 15:21:00* Test Item Value Reference Range Interpretation Comments Coronavirus 2019 nCoV Bedside (test code = JQDLX28LHFKW) Negative Is patient requiring admission or transfer? [...] (test code = MDIFF) NO CBC W/AUTO [id number] 15:05:00* Test Item Value Reference Range Interpretation [...] BA#) K/mm3 0.0-0.2 - XR CHEST 1 [id number] 14:56:00 FAX: Edgar Lerma DO [place]: St: REG Name: MANDY BARTHOLOMEW [facility] : [birth year] Age/S: 33/F [address] [facility] Unit #: [id number] Loc: [place] [address] Phys: Edgar Lerma DO Acct: [id number] Dis Date: Status: REG ER PHONE #: [phone] Exam Date: 07/17/2019 1429 FAX #: [phone] Reason: COUGH EXAMS: CPT CODE: [id number] XR CHEST 1 V 63363 REASON FOR EXAM: COUGH Exam Order Date: [...] IMPRESSION: No acute cardiopulmo nary process. Location: [facility] at 1456 Reported and sig myrna by: José Miguel Cheng MD CC: Edgar Lerma DO Technologist: NITIN GABRIEL, RT(R) Trnscrd Date/Time/By: 07/17/2019 (2048) : By: DiannaRR31 Orig Print D/T: S: 07/17/2019 (7859) PAGE 1 Signed Report CHEM [id number] 08:31:002.2 [facility] DnxpxyxZQROXTPSYCGI8796-20-90 08:31:0010.2[facility] HermannELECTROLYTES 2018-12-11 08:31:00* Test Item Value Reference Range Interpretation Comments B/C Ratio (test code = B/C Ratio) 9 1 6-25 [facility] VyqtvhcWOTZJSPNVBZX8021-44-99 08:31:003.4[facility] HermannELECTROLYTES 2018-12-11 08:31:00* Test Item Value Reference Range Interpretation Comments A/G Ratio (test code = A/G Ratio) 0.8 1 0.7-1.6 [facility] MijfhjkHCINLMLVCUIQ7400-39-88 08:31:0083[facility] HermannELECTROLYTES 2018-12-11 08:31:004[facility] IdppaznEUBLWIUHUWUX0022-96-22 08:31:000.46[facility] LqfzoszZNQZMYOXDYPO1062-37-69 08:31:64301Lbljkmoi JbeccyqZOGNILBLKBME2980-02-25 08:31:004.2[facility] MjqivwwZVEEFSXZQQRB8339-05-66 08:31:86440Nkegnare Andry SNGNHGICEDZS6403-82-13 08:31:0026[facility] SinynmsFNLGEECXZSTO7515-41-37 08:31:00 8.1[facility] AvsskdqCJKHWMPIMOWY8018-25-45 08:31:006.2[facility] [place] RKAGEFPNHYWX5551-22-80 08:31:002.8[facility] IzzcqvfKCZVQDAXTCUE8768-66-31 08:31:0022[facility] AzrduneUSHKBWRPTJKX3736-74-59 08:31:0033[facility] [place] GPGUMDOXGGRV0270-24-29 08:31:99358Elkocoxw UghxdjzJYZGWDODPOXA4723-52-06 08:31:000.5[facility] OpbnblkXDZKXZXEUGBW6459-81-28 08:31:14124Rxyriufr [place] TIJCDVPNVP1666-15-54 08:31:004.0[facility] TlmwnxzFJHYDATRSU8134-57-96 08:31:00 3.83[facility] TfzhxlaKSGAYWPQSC0579-29-93 08:31:0012.3[facility] HermannHEMATOLOGY 2018-12-11 08:31:0036.4[facility] ImqhfnmSHJJYDYJAX7761-33-36 08:31:0095.1[facility] ErnakijTHPZDZSJOC6088-26-79 08:31:00* Test Item Value Reference Range Interpretation Comments MCH (test code = MCH) 32.2 pg 27.0-31.0 [facility] BnvbdxcSNYINUIFUC5824-94-39 08:31:0033.8[facility] HermannHEMATOLOGY 2018-12-11 08:31:0015.3[facility] AdvkrpxIVIWBZHIGM5751-81-06 08:31:23092Woezkrup YqhtmdrKOTLBFAPYK0829-10-29 08:31:007.3[facility] EhtivzcGCKRMARJHC3502-43-30 08:31:0046.5[facility] JuxjkfaVKNEKHQZSC1707-08-00 08:31:0038.7[facility] Andry TCQQQAJXLE4199-31-17 08:31:007.3[facility] DhdzeehIVYDWJGKSG6334-06-58 08:31:006.7 [facility] YhkwseiFHSVOJSBCS8126-64-73 08:31:000.8[facility] HermannHEMATOLOGY 2018-12-11 08:31:001.8[facility] HvkeyixQRMIGXQHWG9033-15-40 08:31:001.5[facility] MjoqckvNECQFYSPLP6887-96-44 08:31:000.3[facility] ZdroeayBAHVERCQJU1978-85-96 08:31:000.3[facility] HermannCHEM ZLEYZ1825-41-01 09:31:0081[facility] HermannCHEM JDLAF1683-76-23 09:31:006[facility] HermannCHEM ZDBGK3188-64-52 09:31:000.58 [facility] HermannCHEM FBOJM3469-42-07 09:31:88656Kcdydpbt HermannCHEM PANEL 2018-12-10 09:31:003.7[facility] HermannCHEM TFVAF3918-71-02 09:31:03390Gmjjjdjb HermannCHEM GTFYB9561-04-99 09:31:0027[facility] HermannCHEM XSRIX7195-65-53 09:31:008.1[facility] HermannCHEM DHZSL1356-66-96 09:31:0011.7[facility] HermannCHEM IRDEP6536-00-60 09:31:79741Hngxtwqa HermannCHEM GTEKO7459-77-09 09:31:001.2 [facility] HermannCARDIAC ESKFZMK9633-80-87 06:12:06030Gghhxill HermannCHEM PANEL 2018-12-09 06:12:001.8[facility] HermannDRUG QWKKOJ4012-33-23 06:12:00Negative *NA*(12/09/18 1:12 AM)[facility] HermannDRUG RKSEVR9002-82-45 06:12:00Negative *NA*(12/09/18 1:12 AM)[facility] HermannDRUG CQPPTP6296-13-65 06:12:00Negative *NA*(12/09/18 1:12 AM)[facility] HermannDRUG LZFTGM5296-01-60 06:12:00Negative *NA*(12/09/18 1:12 AM)[facility] HermannDRUG JKNUBE6497-32-32 06:12:00Negative *NA*(12/09/18 1:12 AM)[facility] HermannDRUG SXHRXJ6370-16-31 06:12:00Negative *NA*(12/09/18 1:12 AM)[facility] HermannDRUG KARXUR8767-23-55 06:12:00Negative *NA*(12/09/18 1:12 AM)[facility] HermannDRUG SEGNVV7634-08-05 06:12:00See Note (12/09/18 1:12 AM)[facility] HpcydunGNVTFCCHHTPV7033-30-23 06:12:0011.1[facility] YlwevgkVOWKUPQQFFOI4996-81-87 06:12:0095[facility] PjbnploFEOXKHGNLMLA0499-00-42 06:12:003[facility] IuttghfTPRTWYBFJXNX8143-26-60 06:12:000.66[facility] Andry HOIVMZYPCMFH2331-49-02 06:12:40485Pygeanac MhgleugJPIXHTGYEIOM0759-21-26 06:12:003.1[facility] VygakjrRACPLBUOQVSF9941-53-49 06:12:45074Bmlvttdb Andry JICPFSMELNMP7642-29-92 06:12:0026[facility] XtvndszUQLKECUQZEOR6251-20-40 06:12:00 9.2[facility] JuwjazvGUGSDPFIJSHA9703-27-81 06:12:43066Ereztoqu [place] XYXDGSJASCGHV7983-35-12 06:12:00Negative *NA*(12/09/18 1:12 AM)[facility] Andry ZDSMJNADHL4461-66-75 06:12:008.2[facility] CfvatyxXVWTFEOYTP2905-64-32 06:12:00 4.24[facility] BemqycyWZKSUEBOGD9263-48-36 06:12:0013.6[facility] HermannHEMATOLOGY 2018-12-09 06:12:0040.2[facility] WreqnikKZGARRTTNN4929-35-15 06:12:0094.8[facility] KorvlygOJLIZOSGSK3882-77-09 06:12:00* Test Item Value Reference Range Interpretation Comments MCH (test code = MCH) 32.2 pg 27.0-31.0 [facility] NoanrbbCNIAZQSGUZ9126-11-40 06:12:0033.9[facility] HermannHEMATOLOGY 2018-12-09 06:12:0015.7[facility] AdcrbcpGPEBMFNRYQ1464-78-81 06:12:15176Eqdvyyal DwvfeclWOIOHCWTMH5811-17-62 06:12:006.3[facility] KvxcbfySIUSFEJWNS8372-25-95 06:12:0057.2[facility] MtjpypeAGTBKMQVUW6491-17-77 06:12:0037.4[facility] Andry JCFCKSIKME4582-93-43 06:12:004.0[facility] JpcnevtBKZDZZWANW4860-85-06 06:12:000.5 [facility] ZzvrkqnDSHXHPSAGQ8766-71-67 06:12:000.9[facility] HermannHEMATOLOGY 2018-12-09 06:12:004.7[facility] VtcoavtCMZQMVPADN5366-54-86 06:12:003.1[facility] OfjzfysMUSIAFTLKX1770-34-23 06:12:000.3[facility] TuxvmanJBNLTMROWX6041-77-51 06:12:000.1[facility] EutssegHBWFENQUCR2125-11-07 06:12:00<2 (12/09/18 1:12 AM) [facility] NdwbrpqAVQRDOAGYT7329-15-33 06:12:03003Rsrrdgih HermannTOXICOLOGY 2018-12-09 06:12:000.485[facility] PvplaywLFYFNQFUFK3395-13-99 06:12:003.2[facility] HermannURINE AND YGFZV2228-83-57 06:12:00Colorless *NA*(12/09/18 1:12 AM)[facility]annURINE AND YHRIK5685-65-73 06:12:00Clear (12/09/18 1:12 AM)[facility] Andry URINE AND MBPBJ0642-50-76 06:12:00* Test Item Value Reference Range Interpretation Comments UA Spec Grav (test code = UA Spec Grav) 1.002 1 [facility]annURINE AND NURRO2314-02-59 06:12:00* Test Item Value Reference Range Interpretation Comments UA pH (test code = UA pH) 7.0 1 5.0-8.0 [facility]annUR[facility] AND BLQQI1615-18-91 06:12:00Negative *NA*(12/09/18 1:12 AM) [facility] AND LPVFP8429-88-92 06:12:00Negative (12/09/18 1:12 AM) [facility] NTPJO5329-44-68 06:12:00Negative (12/09/18 1:12 AM) [facility] ESPSS0281-70-31 06:12:00Negative (12/09/18 1:12 AM) [facility] MICCU3995-10-73 20:52:00Light Yellow *NA*(12/05/18 3:52 PM)[facility] AND JWGVE1634-95-69 20:52:00Clear (12/05/18 3:52 PM) [facility] GOFBR0670-39-53 20:52:00* Test Item Value Reference Range Interpretation Comments UA Spec Grav (test code = UA Spec Grav) 1.008 1 [facility] LAPGA6026-09-61 20:52:00* Test Item Value Reference Range Interpretation Comments UA pH (test code = UA pH) 6.0 1 5.0-8.0 [facility] AND YFYAQ9445-97-51 20:52:00Negative *NA*(12/05/18 3:52 PM) [facility] KNEWT0918-30-48 20:52:00Negative (12/05/18 3:52 PM) [facility] NLMWV0342-93-42 20:52:00Negative (12/05/18 3:52 PM) [facility] ERPAA5752-85-51 20:52:00Negative (12/05/18 3:52 PM) [facility] SHINL0080-58-84 20:52:00Not Indicated *NA*(12/05/18 3:52 PM)[facility] HermannDRUG PPYFUM8646-93-36 16:30:00Negative *NA*(12/05/18 11:30 AM)[facility]annDRUG RRVNOJ2877-47-46 16:30:00Negative *NA*(12/05/18 11:30 AM)[facility] HermannDRUG WQTJPR0032-40-17 16:30:00Negative *NA*(12/05/18 11:30 AM)[facility]annDRUG INHATH8555-26-17 16:30:00Negative *NA*(12/05/18 11:30 AM)[facility]annDRUG YLNASQ9689-51-36 16:30:00Negative *NA*(12/05/18 11:30 AM)[facility]annDRUG PCEVXQ1786-18-22 16:30:00Negative *NA*(12/05/18 11:30 AM)[facility] HermannDRUG UAYQXS6887-45-67 16:30:00Negative *NA*(12/05/18 11:30 AM)[facility] HermannDRUG BEODDX4058-90-51 16:30:00See Note (12/05/18 11:30 AM)[facility] HermannCHEM IPLBT2809-51-15 15:08:0086[facility] HermannCHEM PANEL 2018-12-05 15:08:003[facility] HermannCHEM CPIXF6322-11-03 15:08:000.60[facility] HermannCHEM HHGAL0588-56-54 15:08:24322Oclihgof HermannCHEM AWKSZ4378-43-73 15:08:003.6[facility] HermannCHEM DLVUV0643-67-63 15:08:88758Hemxcgxt HermannCHEM GUWTW1210-02-83 15:08:0027[facility] HermannCHEM BZZEL7529-78-18 15:08:009.3 [facility]annCHEM CJXIL2414-53-08 15:08:008.2[facility] HermannCHEM PANEL 2018-12-05 15:08:004.0[facility] HermannCHEM URUPZ6018-36-25 15:08:0033[facility] HermannCHEM HKQHF0660-03-38 15:08:0028[facility] HermannCHEM ONAYG0463-89-42 15:08:85318Euvfnifc HermannCHEM JFGIK6404-22-57 15:08:000.4[facility] HermannCHEM VAFGX4757-22-39 15:08:04067Qojuaibu HermannCHEM KNOUP9706-35-97 15:08:0012.6 [facility] HermannCHEM THMSO7779-91-25 15:08:00* Test Item Value Reference Range Interpretation Comments B/C Ratio (test code = B/C Ratio) 5 1 6-25 [facility] HermannCHEM ATDPZ9521-42-94 15:08:004.2[facility] HermannCHEM PANEL 2018-12-05 15:08:00* Test Item Value Reference Range Interpretation Comments A/G Ratio (test code = A/G Ratio) 1.0 1 0.7-1.6 [facility] HvauopqHDQLZFICKUPTZ6486-33-95 15:08:00Negative *NA*(12/05/18 10:08 AM) [facility] DqznpyoVOIBVLYMNI7128-19-68 15:08:007.8[facility] HermannHEMATOLOGY 2018-12-05 15:08:004.26[facility] WflevkfKCLGHYIBUF8047-17-11 15:08:0013.6[facility] UnozjrqXUHOCDUNJX4343-61-50 15:08:0040.2[facility] TawxuisVTGTZVXDKP1021-06-88 15:08:0094.3[facility] UimdjwtISCFEQNYTL4481-22-23 15:08:00* Test Item Value Reference Range Interpretation Comments MCH (test code = MCH) 31.8 pg 27.0-31.0 [facility] CnrgcvkABFEATGPGX4406-09-16 15:08:0033.8[facility] HermannHEMATOLOGY 2018-12-05 15:08:0015.5[facility] ZtkglpeRTSNGAEKQQ2523-87-41 15:08:49377Auchmrcz MfboompVJYDHMOHLK4948-07-81 15:08:006.5[facility] OljshqeFQLAITAUPT4604-58-56 15:08:0065.7[facility] RkjtwsvZYDUPLAOZM3925-44-73 15:08:0030.3[facility] [place] NHRKZKLNVT2074-65-60 15:08:002.9[facility] VktpbdqQBJSNTQBXA8170-60-69 15:08:000.3 [facility] LdvuedpTBSVGEDUSN7244-91-31 15:08:000.8[facility]annHEMATOLOGY 2018-12-05 15:08:005.1[facility] LwcztmeDEZWSOVBGF5500-92-17 15:08:002.4[facility] YvuqjakMAEJTEDYVJ5305-74-03 15:08:000.2[facility] FjpeirlFYZFEVUQTN3962-31-34 15:08:000.1[facility] DlavkieALSITVRCGI8142-01-82 15:08:00<2 (12/05/18 10:08 AM) [facility] CpehyvpGRYXXDHHNX8042-20-88 15:08:84536Aoglbtjy HermannTOXICOLOGY 2018-12-05 15:08:000.359[facility] GsfwtjyGDQPCKVQZN9205-80-68 15:08:003.9[facility] KdmmaqaRWLKGOTIJM1107-89-24 09:11:49282Miovlnor ApethrfNOVGTWRVTI3165-64-98 09:11:000.377[facility]annCHEM HYQLX2816-63-46 06:40:0072[facility]annCHEM VZUXV2262-54-85 06:40:005[facility]annCHEM TSDVL9205-03-65 06:40:000.67 [facility]annCHEM SRVSZ4006-91-05 06:40:50411Hgpuvzfw HermannCHEM PANEL 2018-10-18 06:40:003.3[facility] HermannCHEM QAIJH5267-26-34 06:40:26903Lbmbnbct HermannCHEM IINWT4086-98-78 06:40:0026[facility]annCHEM HNLUX3367-43-87 06:40:008.4[facility]annCHEM YJBCV2875-04-59 06:40:53193Rooanhmz HermannCHEM ANFGI4717-84-95 06:40:0013.3[facility] XhejqudPGTXFRMITDWGI7626-44-36 06:40:00 Negative *NA*(10/18/18 1:40 AM)[facility] StggfggMTFVLGABDB5808-22-49 06:40:004.2 [facility] EpwbsqlKYGGAJUVEI3550-52-92 06:40:004.38[facility]annHEMATOLOGY 2018-10-18 06:40:0014.0[facility] NlnumpaRLQFSBOXYI0583-89-49 06:40:0042.1[facility] KjbzjzyHXCRRVBNBA8747-98-12 06:40:0096.0[facility] SdnyzjtETPYCJJMFM6821-89-33 06:40:00* Test Item Value Reference Range Interpretation Comments MCH (test code = MCH) 32.0 pg 27.0-31.0 [facility] MlydnigZDURKCKSWH3509-39-25 06:40:0033.4[facility]annHEMATOLOGY 2018-10-18 06:40:0015.6[facility] AkgwnxdMMTTHKWZYE7374-91-49 06:40:08684Tkhasuis GxkcnthRQHRCSZMSK6952-55-79 06:40:007.8[facility] ApvjezdJCMUIIOEMJ9142-39-99 06:40:0040.6[facility] LyzqbzpRIRVGLIQKC6052-31-39 06:40:0044.7[facility] DUTBRHTFJN4956-13-25 06:40:0012.4[facility] DtpnryaAPMVGLFMUI0200-44-93 06:40:00 1.3[facility] IodvwozLPLBGUGFUQ8938-04-09 06:40:001.0[facility]annHEMATOLOGY 2018-10-18 06:40:001.7[facility] IdquhxzSUOADZXKTW7335-79-12 06:40:001.9[facility] OsrwvxyKKYYWYRGBZ6895-22-05 06:40:000.5[facility] PppyhdiLORGKCBVUQ1186-77-46 06:40:000.1[facility]annURINE AND HXLVP3047-76-86 04:27:00<1[facility] [place] URINE AND KWIYX9815-64-13 04:27:00<1[facility]UR[facility] AND XYFPG0839-11-70 04:27:00Negative *NA*(09/24/18 11:27 PM)[facility] ZJNYA1685-20-45 04:27:00Negative (09/24/18 11:27 PM)[facility] AMAIJ7678-38-52 04:27:00Negative (09/24/18 11:27 PM)[facility] MAUSU2894-18-72 04:27:00Negative (09/24/18 11:27 PM)[facility] PGYYO3474-69-14 04:27:00* Test Item Value Reference Range Interpretation Comments UA pH (test code = UA pH) 6.0 1 5.0-8.0 [facility] DBYRE0288-20-97 04:27:00* Test Item Value Reference Range Interpretation Comments UA Spec Grav (test code = UA Spec Grav) 1.003 1 [facility] XGBPD9788-46-91 04:27:00Clear (09/24/18 11:27 PM) [facility] KVCR9333-38-47 04:27:00Negative (09/24/18 11:27 PM)[facility] ItdkcroTPVHVFSEGDEE6555-33-82 04:15:0012.2[facility] TkerczgXHRLINWVQOGL2580-22-81 04:15:00* Test Item Value Reference Range Interpretation Comments B/C Ratio (test code = B/C Ratio) 7 1 6-25 [facility] WqcquewSNNLBUTFSRAI7993-21-45 04:15:00* Test Item Value Reference Range Interpretation Comments A/G Ratio (test code = A/G Ratio) 1.1 1 0.7-1.6 [facility] YldtamwKHVCNWWHYJDK6112-25-06 04:15:003.8[facility] HermannELECTROLYTES 2018-09-25 04:15:50759Jxqjbdmv GuohpwhRXREEGVWKILT4714-99-92 04:15:45326Mwwdkzez McwbcqoCWAJIQQBZSWS3902-26-45 04:15:000.2[facility] RmjdqxgKVTARMXFTWXE6690-00-70 04:15:06081Ndabjqpk RmqouynBHEZDVPSTMQO6691-81-99 04:15:61254Wkrblmxy [place] YSQAJYTCXGYU4077-84-38 04:15:008.7[facility] KjntppzHPTVRBFURCMF3390-61-81 04:15:0025[facility] NedoxwmYCWXYBEUVJGF0399-21-06 04:15:0098[facility] [place] CIUECXYQCCMC5567-79-72 04:15:004.0[facility] LewucbaOBLACCOUCCZN7091-56-02 04:15:007.8[facility] XvoiptiPHAUFWLWIIOK6680-41-12 04:15:004[facility] [place] KJOJWMCRKOYX7510-86-54 04:15:004.2[facility] IjpbfpuTPQMREIXJSDH4601-60-21 04:15:42323Muiuvnel YzljgkjZUDYMKQTJMHM0844-49-53 04:15:000.59[facility] [place] EMIUVEVMEMOC7901-56-82 04:15:0077[facility] VdsjdmoROROKXYILB3327-92-70 04:15:00 2.2[facility] ZidjefsRVORDXFVTS5945-22-82 04:15:000.4[facility]annHEMATOLOGY 2018-09-25 04:15:000.2[facility] GwfzromRFEBTGILLP8846-74-04 04:15:009.2[facility] GrpjyouEFQYZBOGIU2901-42-88 04:15:001.8[facility] VwhcjxpGTSYWNCRWU8581-43-09 04:15:0047.8[facility] SpysjraUNGBFVIOPB1630-14-11 04:15:0041.0[facility] [place] AFIZADEJRN6993-55-47 04:15:000.1[facility] GrhqdkyBMDVQCFWNI1651-37-01 04:15:001.9 [facility] HbmqnluLYLAHYSVEM4844-73-06 04:15:007.6[facility]annHEMATOLOGY 2018-09-25 04:15:0033.6[facility] FtfeujwIGYBWMEKYS2694-08-53 04:15:00* Test Item Value Reference Range Interpretation Comments MCH (test code = MCH) 31.8 pg 27.0-31.0 [facility] SimuiouPSPXJEBREI7592-83-97 04:15:0043.5[facility]annHEMATOLOGY 2018-09-25 04:15:0014.6[facility] KeorbuoPTWUBRQMGO6411-31-62 04:15:0094.6[facility] GfdtkwlSAEOLUBOEH6509-70-97 04:15:0015.1[facility] PdeslwtHCJRAGRAVU5572-75-61 04:15:03922Rzmiqbkt GscrgnmWOAILEOQIK7829-86-28 04:15:004.6[facility] [place] WXUGLEEQRX5091-19-30 04:15:004.60[facility] HermannCT Abdomen and Pelvis w/o Jkrznpvu9443-69-58 17:25:19Patient: MANDY ASCENCIO Date/Time09/14/2018 17:17 CDTReason for [...] Adam FSigned (Electronic Signature): 01/2019 5:25 pmLipid Fcgjt7775-83-49 03:57:40* Test Item Value Reference Range Interpretation Comments Cholesterol Total (test code = Cholesterol Total) 190 mg/dL 0-20 0 RISK OF HEART DISEASEPublished by [employer] Analyte Optimal Borderline Increased RiskCHOL [...] is LDL/HDL Ratio=LDL Calc/HDL Chol Thyroid Stimulating Thagofh1157-17-94 03:57:40* Test Item Value Reference Range Interpretation Comments TSH (test code = TSH) 0.611 mIU/mL 0.270-4.200 RPR Zfrtvfqbwvv7621-45-48 03:40:29* Test Item Value Reference Range Interpretation [...] code = Expiration Dt) 01-05-20 N Alcohol Vozse8346-47-11 05:54:38* Test Item Value Reference Range Interpretation Comments Ethanol Level (test code = Ethanol Level) 0.14 g/dL 0.00-0.01 H Intoxicated 0.080 g/dL or more Ethanol Inst (test code = Ethanol Inst) 145 N Comprehensive Metabolic Mawmz0538-71-49 22:36:43* Test Item Value Reference Range Interpretation [...] A/G Ratio) 1.6 ratio N Comprehensive Metabolic Mjhmf0882-69-65 22:36:43* Test Item Value Reference Range Interpretation [...] is not provided, and the patient is -B[place], multiply by 1.212. If sex is not [...] by the [employer] Kid[employer] Foundation, http://nkdep.nih.gov Alcohol Rwfbu6038-70-69 22:36:43* Test Item Value Reference Range Interpretation Comments Ethanol Level (test code = Ethanol Level) 0.38 g/dL 0.00-0.01 Verified by repeat analysis.Critical results called to susie austin at 09/11/2018 22:36:33 CDT by og. Read back and verified? yesIntoxicated 0.080 g/dL or more Ethanol Inst (test code = Ethanol Inst) [address] Comprehensive Metabolic Hwicj4343-53-33 22:36:43* Test Item Value Reference Range Interpretation [...] is not provided, and the patient is -[place], multiply by 1.212. If sex is not [...] is not provided, and the patient is -[place], multiply by 1.212. If sex is not [...] Kidney Foundation, http://nkdep.nih.gov Drugs of Abuse Urine 05394-83-68 22:21:12* Test Item Value Reference Range Interpretation [...] Ur) Negative Negative Urinalysis with Microscopic if blngqvvoc4131-29-34 22:18:12* Test Item Value Reference Range Interpretation [...] Result created by rule GL_SJM_UA_MICRO_IND HCG Qualitative Yfprv3551-07-47 22:17:09* Test Item Value Reference Range Interpretation [...] Lot # (test code = Lot #) [id number] N Expiration Dt (test code = Expiration Dt) 2019-12-05 N Neg Control (test code = Neg Control) Negative Pos Control (test code = Pos Control) Positive Internal QC (test code = Internal QC) Acceptable IG Toixr1330-10-48 22:10:55* Test Item Value Reference Range Interpretation Comments IG (test code = IG) 0.3 % 0.0-5.0 IG Abs (test code = IG Abs) 0 x10 N Complete Blood Count with Tnzwhhjpgfeo9904-39-01 22:10:54* Test Item Value Reference Range Interpretation [...] code = IPF) 0 % N Automated Albpzvzyqyfz6495-45-98 22:10:54* Test Item Value Reference Range Interpretation Comments Neutro Auto (test code = Neutro Auto) 42.2 % 36.0-70.0 Lymph Auto (test code = Lymph Auto) 48.4 % 12.0-44.0 H Ross Auto (test code = Ross Auto) 7.3 % 0.0-11.0 Eos, Auto (test code = Eos, Auto) 0.8 % 0.0-7.0 Basophil Auto (test code = Basophil Auto) 1.0 % 0.0-2.0 Neutro Absolute (test code = Neutro Absolute) 1.6 x10 1.6-7.4 Lymph Absolute (test code = Lymph Absolute) 1.86 x10 .50-4.60 Ross Absolute (test code = Ross Absolute) .28 x10 .00-1.20 Eos Absolute (test code = Eos Absolute) 0.03 x10 0.00-0.74 Baso Absolute (test code = Baso Absolute) 0.04 x10 0.00-0.21 CT Spine Cervical w/o Hwmjhlqg1249-98-59 22:00:14Patient: MANDY ASCENCIO Date/Time09/11/2018 21:42 CDTReason for ExamTraumaReportFacial Examination: CT of the cervical spine without contrastLocation code: C40Bzbzxnpiiv: NoneTechnique:Thin section axial contiguous images were obtained [...] Electronic Signature): 09/11/2018 10:00 pmCT Brain/Head w/o Eovzkrjv4043-80-93 21:57:59Patient: MANDY ASCENCIO Date/Time09/11/2018 21:42 CDTReason for ExamTraumaReportExamination: Head CT without contrastLocation code: X69Hjscnvtlbq: NoneTechnique:Axial contiguous images through the brain were [...] James ESigned (Electronic Signature): 09/11/2018 9:57 pmCHEM DXGOJ4421-80-81 07:42:00 120[facility]annCHEM WEEID9621-86-72 07:42:0030[facility]annCHEM PANEL 2018-09-09 07:42:29752Vuhgcowk HermannCHEM SSZKY4919-17-57 07:42:003.7[facility]annCHEM MUXSX9871-53-64 07:42:008.3[facility]annCHEM HPCDX8667-74-02 07:42:05101Bdadwixq HermannCHEM DUWZN0382-60-74 07:42:000.64[facility]annCHEM YVQSI4740-85-80 07:42:003[facility]annCHEM JOBEZ2713-47-30 07:42:0077[facility] HermannCHEM RHOKZ0794-75-45 07:42:008.7[facility]annDRUG KYQKRH6216-60-83 07:42:00Negative *NA*(09/09/18 2:42 AM)[facility] TUQKRN6094-24-60 07:42:00See Note (09/09/18 2:42 AM)[facility]DR[facility] YXJHPD7015-31-34 07:42:00 Negative *NA*(09/09/18 2:42 AM)[facility] FZUHOK1567-09-98 07:42:00 Negative *NA*(09/09/18 2:42 AM)[facility]DR[facility] GRJOEV5581-73-57 07:42:00 Negative *NA*(09/09/18 2:42 AM)[facility] PPPIXX2919-04-63 07:42:00 Negative *NA*(09/09/18 2:42 AM)[facility] AISBWQ5685-25-08 07:42:00 Negative *NA*(09/09/18 2:42 AM)[facility] YUBDIC4350-74-69 07:42:00 Positive *ABN*(09/09/18 2:42 AM)[facility] FvuefuzWFVDKUOVGKDYT5464-02-08 07:42:00 Negative *NA*(09/09/18 2:42 AM)[facility] UscyrmvUADOUTOCDX9301-93-05 07:42:0011.7 [facility] EjxcapmKPKAZLZCRY6079-66-66 07:42:0058.0[facility]annHEMATOLOGY 2018-09-09 07:42:001.3[facility] GnmcowmTENOODDWDN6691-00-86 07:42:002.1[facility] ErnuperGPEUUUQJSJ6792-95-28 07:42:002.1[facility] SkkradxFMCIOCLVQJ3691-02-14 07:42:000.1[facility] LilhlfqMMAOMWYMAE3916-74-81 07:42:000.4[facility] Andry BTBPWXXNOL8312-59-09 07:42:0026.9[facility] LqeyqsmIMDMYUPEWG6987-46-65 07:42:00 1.0[facility] JfsdabjXBNJFCGOGU6020-66-13 07:42:007.8[facility]annHEMATOLOGY 2018-09-09 07:42:51967Tyzvumnj FzlvthmBEJVZPYWZQ6795-25-62 07:42:0014.8[facility] WczrnazDVAUNUBJVA1639-80-52 07:42:0094.8[facility] DikhtihZSJPMVELSG0837-90-57 07:42:00* Test Item Value Reference Range Interpretation Comments MCH (test code = MCH) 31.4 pg 27.0-31.0 [facility] RqhgxhkBGPQZJWNPZ6147-20-25 07:42:0033.1[facility] HermannHEMATOLOGY 2018-09-09 07:42:0014.5[facility] SptkrzhHDEWUYSQNB4434-87-77 07:42:0043.8[facility] HnseppoPEYSGOKFNF1296-56-74 07:42:004.62[facility] ScrelmrODQMNTPGOE0654-29-44 07:42:003.7[facility] BmeoobbUDZPMRWYXJ2583-11-47 07:42:18593Xiqncgaf Andry ACCGVJUFBZ0531-16-53 07:42:000.345[facility]annUR[facility] AND BCYRW3592-78-24 07:42:00Negative *NA*(09/09/18 2:42 AM)[facility] EMJVH6520-60-51 07:42:00Negative (09/09/18 2:42 AM)[facility] PZSSC3401-24-87 07:42:00Negative (09/09/18 2:42 AM)[facility] PBXXH3811-03-59 07:42:00Negative (09/09/18 2:42 AM)[facility] LBXYQ1879-31-50 07:42:001[facility] ZCOAM7946-66-28 07:42:00<1[facility] [place] URINE AND TEAHA3140-60-03 07:42:00Clear (09/09/18 2:42 AM)[facility] RNQPT2433-15-29 07:42:00* Test Item Value Reference Range Interpretation Comments UA Spec Grav (test code = UA Spec Grav) 1.004 1 [facility] OFJVX9310-89-25 07:42:00* Test Item Value Reference Range Interpretation Comments UA pH (test code = UA pH) 6.0 1 5.0-8.0 [facility] XKOIOF7386-15-45 00:55:00Positive *ABN*(08/23/18 7:55 PM) [facility] RWAJNL4355-27-61 00:55:00Negative *NA*(08/23/18 7:55 PM) [facility] DQTRDW4057-36-29 00:55:00Negative *NA*(08/23/18 7:55 PM) [facility] JHJQGO1105-64-16 00:55:00See Note (08/23/18 7:55 PM)[facility]DR[facility] ODXKVH8256-55-07 00:55:00Negative *NA*(08/23/18 7:55 PM)[facility] NWNGIS9865-96-82 00:55:00Negative *NA*(08/23/18 7:55 PM)[facility] AJFMCT1551-53-66 00:55:00Negative *NA*(08/23/18 7:55 PM)[facility]DR[facility] RFKNLZ1916-28-48 00:55:00Negative *NA*(08/23/18 7:55 PM)[facility] TRXJO5447-04-00 00:55:001[facility] STOOL 2018-08-24 00:55:00<1[facility] ZVXQX5791-90-38 00:55:00Negative (08/23/18 7:55 PM)[facility] SLEQS2980-53-83 00:55:00Negative (08/23/18 7:55 PM)[facility] ZLHJY3883-56-35 00:55:00Negative (08/23/18 7:55 PM)[facility] KLDOC4941-28-30 00:55:00* Test Item Value Reference Range Interpretation Comments UA pH (test code = UA pH) 6.0 1 5.0-8.0 [facility] RBERN7884-71-99 00:55:00Negative *NA*(08/23/18 7:55 PM) [facility] VMROW2379-93-06 00:55:00* Test Item Value Reference Range Interpretation Comments UA Spec Grav (test code = UA Spec Grav) 1.004 1 [facility] XTHOP2670-23-66 00:55:00Clear (08/23/18 7:55 PM) [facility]annCHEM CRWAS4472-48-11 00:33:00* Test Item Value Reference Range Interpretation Comments B/C Ratio (test code = B/C Ratio) 8 1 6-25 [facility]annCHEM DMIAO5451-27-44 00:33:0013.7[facility]annCHEM PANEL 2018-08-24 00:33:00* Test Item Value Reference Range Interpretation Comments A/G Ratio (test code = A/G Ratio) 1.1 1 0.7-1.6 [facility]annCHEM NDOIW7077-89-85 00:33:003.6[facility]annCHEM PANEL 2018-08-24 00:33:95367Mmbwixqx HermannCHEM TOOOO3978-46-69 00:33:0073[facility]annCHEM PUQMA1873-95-05 00:33:003.8[facility]annCHEM RYTTS7319-47-74 00:33:007.4[facility]annCHEM UEWDY5421-33-48 00:33:46514Draqwlzn HermannCHEM HJHIG9039-66-43 00:33:0061[facility]annCHEM GFKLH2559-34-28 00:33:000.2 [facility]annCHEM IAVEI0316-22-17 00:33:0094[facility]annCHEM PANEL 2018-08-24 00:33:000.64[facility]annCHEM TZNQU6840-64-58 00:33:005[facility]annCHEM RZPQO4482-72-52 00:33:79829Giixvqmb HermannCHEM TYEFW5273-31-46 00:33:003.7[facility]annCHEM WEIUJ7096-94-42 00:33:14435Iggnuqxl HermannCHEM KBJMU6314-34-97 00:33:008.5[facility] HermannCHEM PSXRH4915-62-22 00:33:0024 [facility] IonumnmODNPABVADAEGM2283-17-62 00:33:00Negative *NA*(08/23/18 7:33 PM) [facility] MhmeecjPGOBOULZRZ8842-00-90 00:33:000.1[facility]annHEMATOLOGY 2018-08-24 00:33:000.1[facility] EdcmycuORTOPQLYYG6666-96-11 00:33:002.3[facility] ZyxrvwyFLVFYMALMK0296-17-27 00:33:001.6[facility] ZxgprjsZUBBVKGWZC8917-39-82 00:33:000.5[facility] LrqxnkuFHEGFGXWJB7525-08-63 00:33:002.4[facility] [place] QDJRDCHXLI5807-76-28 00:33:001.4[facility] ZztkatcMDOKNKKRNP5331-21-96 00:33:00 10.8[facility] IebuafzMLHAIMTECL0218-01-08 00:33:0034.9[facility]annHEMATOLOGY 2018-08-24 00:33:0050.5[facility] HbipkcdNNWMZHQFYA9216-97-83 00:33:0094.4[facility] DtmoolgEMAJMEOWXE1374-86-39 00:33:0042.3[facility] FrowrtiEMQNUDSGCH0628-28-92 00:33:0033.1[facility] KilmhdgQGZXVKOCYT1665-02-41 00:33:00* Test Item Value Reference Range Interpretation Comments MCH (test code = MCH) 31.2 pg 27.0-31.0 [facility] GfxwnerOXCKSBOQAY5744-00-41 00:33:004.6[facility]annHEMATOLOGY 2018-08-24 00:33:0014.0[facility] MwtysvxLTVZSFNDGT4010-49-50 00:33:004.48[facility] CobzwakOWFGEMTLHO8300-01-03 00:33:53376Slgzqjcg IcurkklVYSXLHFJGB7556-53-03 00:33:0013.7[facility] TkaoluwOLBNABFISL2197-97-19 00:33:007.8[facility] [place] XLBYCCAZYX2099-09-07 00:33:000.369[facility] FbyuhvbBXJFPIJLGG6173-16-91 00:33:00 369[facility] CfqfzzlFECTZTBBWK1851-64-96 00:33:003.4[facility] HermannTOXICOLOGY 2018-08-24 00:33:00<2 (08/23/18 7:33 PM)[facility]DR[facility] QPLMPN1581-71-63 02:39:00See Note (08/01/18 9:39 PM)[facility]DR[facility] BQWRWQ1416-48-23 02:39:00 Negative *NA*(08/01/18 9:39 PM)[facility]DR[facility] DCIGDM8371-27-85 02:39:00 Negative *NA*(08/01/18 9:39 PM)[facility]DR[facility] RIPVOZ3573-36-79 02:39:00 Negative *NA*(08/01/18 9:39 PM)[facility]DR[facility] GSWWNY1378-25-73 02:39:00 Negative *NA*(08/01/18 9:39 PM)[facility]DR[facility] JNCIWH0372-37-47 02:39:00 Negative *NA*(08/01/18 9:39 PM)[facility]DR[facility] ZUBXHI2814-06-56 02:39:00 Negative *NA*(08/01/18 9:39 PM)[facility]DR[facility] OUGZLB5449-84-67 02:39:00 Negative *NA*(08/01/18 9:39 PM)[facility] TENSV4661-65-23 02:39:00 Negative (08/01/18 9:39 PM)[facility] ZRGBN5083-69-60 02:39:00<1 [facility] VQHQM8844-92-65 02:39:00<1[facility] KBXAG9450-20-44 02:39:00Negative (08/01/18 9:39 PM)[facility] GQEDO6902-12-53 02:39:00Negative (08/01/18 9:39 PM)[facility] XHUCU8078-53-70 02:39:00* Test Item Value Reference Range Interpretation Comments UA pH (test code = UA pH) 6.0 1 5.0-8.0 [facility] MUITL8224-84-31 02:39:00Negative *NA*(08/01/18 9:39 PM) [facility] DCQAH7996-25-26 02:39:00Clear (08/01/18 9:39 PM) [facility] WIMBE0367-13-97 02:39:00* Test Item Value Reference Range Interpretation Comments UA Spec Grav (test code = UA Spec Grav) 1.004 1 [facility] YeynfiiDJMFQSUUEZ1481-90-16 02:18:000.419[facility] HermannTOXICOLOGY 2018-08-02 02:18:63855Qihcmtbn HermannCARDIAC WAGUDQJ3984-79-01 02:04:0086 [facility] EebmtypFPYCNENAHMIZ7593-31-08 02:04:0019.6[facility] HermannELECTROLYTES 2018-08-02 02:04:00* Test Item Value Reference Range Interpretation Comments B/C Ratio (test code = B/C Ratio) 11 1 6-25 [facility] UlgwnxdLYVRKKXFBQBP5459-51-18 02:04:00* Test Item Value Reference Range Interpretation Comments A/G Ratio (test code = A/G Ratio) 1.1 1 0.7-1.6 [facility] VfdzckcOMIGFNEYCSJL5141-33-89 02:04:003.5[facility] HermannELECTROLYTES 2018-08-02 02:04:87673Qhnzylih JprqnlcKTICYWWGOOOU5663-55-01 02:04:008[facility] FhcpbxxTCGMXFLPZDEL8264-41-88 02:04:000.71[facility] MjvulcfUOAQJCCZDNTK1525-00-46 02:04:0064[facility] VjhnqqoTXFZBLNAHKUY3722-41-67 02:04:000.2[facility] GYEMECXZCSFU9395-82-51 02:04:003.7[facility] OqhykcfMTRBLGDUWBOY1831-51-53 02:04:007.2[facility] SuvmmhpKHKKXHZVKQTY7601-13-91 02:04:0093[facility] [place] ALCIYJUETEOF8191-21-30 02:04:0028[facility] HhacujsFGSVVFNBZUQM2073-41-56 02:04:00 32[facility] XvrvpnlOSZANMIFEBIV2767-14-75 02:04:53878Oydxkzxv HermannELECTROLYTES 2018-08-02 02:04:003.6[facility] QkybjxqXNWRPBWQSNGA8070-20-66 02:04:008.7[facility] NocliorCZASBWGSDHCG8420-69-61 02:04:42375Ecrptrik TcxsistLROGCQHOOQRI9487-69-78 02:04:0022[facility] DbpgtfpKPRUHOMYAAKYK3602-90-90 02:04:00Negative *NA*(08/01/18 9:04 PM)[facility] UkamwsfYCUYKUVTPM6535-05-82 02:04:000.1[facility] [place] OETZPFQDMO0880-44-86 02:04:000.1[facility] LpetuwwJKUYWZLUIR7141-28-61 02:04:000.3 [facility] VjhckswHAONNVGUGV5608-16-87 02:04:0024.4[facility]annHEMATOLOGY 2018-08-02 02:04:0069.9[facility] WkooajiPGUVOMSUIM6682-66-75 02:04:000.8[facility] GtkrwaaCNAOQJLMJJ9403-48-70 02:04:002.1[facility] OjjlwglGCYGGBNANS5731-02-19 02:04:005.9[facility] DmyzgbuINGPZNHNEC3126-46-08 02:04:001.0[facility] BVWWVGPPXL9900-62-18 02:04:003.9[facility] UpmkvxlKJXQSBAXEQ2241-23-53 02:04:00 12.8[facility] EmqkcyoYVILHMXTMX8587-10-21 02:04:0013.3[facility]annHEMATOLOGY 2018-08-02 02:04:79679Pjapprfs CkwbxrmDORDKOIBLU9172-61-12 02:04:0033.8[facility] AstduncLJEDKVXJLR1748-52-05 02:04:007.4[facility] OpihofpASPFTIDHEY0090-90-09 02:04:00* Test Item Value Reference Range Interpretation Comments MCH (test code = MCH) 31.7 pg 27.0-31.0 [facility] DkukwmmLDKFHNFYCT2676-68-70 02:04:0038.0[facility]annHEMATOLOGY 2018-08-02 02:04:0093.9[facility] WopnzboGLDWWFYWQK8220-20-17 02:04:004.05[facility] YwddntuGZACHWYZGE6226-07-54 02:04:008.4[facility] HermannCHEM UXTCF2180-05-55 21:59:008.7[facility] HermannCHEM JUXBR0531-18-30 21:59:67274Etpmoeyh HermannCHEM OQHAZ7955-85-08 21:59:003.8[facility] HermannCHEM BPKFO2826-86-03 21:59:71282 [facility]annCHEM LXLPS4855-71-20 21:59:51776Ujumnqvm HermannCHEM PANEL 2018-07-30 21:59:0018[facility] HermannCHEM LNLMZ0852-23-19 21:59:000.64[facility] HermannCHEM EMJSR2859-61-32 21:59:004.0[facility] HermannCHEM VSQZJ8663-54-22 21:59:0027[facility]annCHEM CBWMS0058-13-07 21:59:0090[facility] HermannCHEM QNCXF6648-20-26 21:59:004[facility]annCHEM JNIVO3160-92-45 21:59:000.2 [facility]annCHEM VELMI6034-36-50 21:59:007.6[facility]annCHEM PANEL 2018-07-30 21:59:0079[facility] HermannCHEM JWAMD4845-86-89 21:59:0031[facility]annCHEM QWEZX4493-40-80 21:59:00* Test Item Value Reference Range Interpretation Comments B/C Ratio (test code = B/C Ratio) 6 1 08-29 [facility]annCHEM ACUAF3516-37-68 21:59:0013.8[facility] HermannCHEM PANEL 2018-07-30 21:59:003.6[facility] HermannCHEM WQVWI3472-36-77 21:59:00* Test Item Value Reference Range Interpretation Comments A/G Ratio (test code = A/G Ratio) 1.1 1 0.7-1.6 [facility]DR[facility] OBGWNX9481-01-72 21:59:00Negative *NA*(07/30/18 4:59 PM) [facility] PKHILS9465-92-97 21:59:00Negative *NA*(07/30/18 4:59 PM) [facility] ZEKVNO4030-87-46 21:59:00Negative *NA*(07/30/18 4:59 PM) [facility] TLTFEQ3441-56-93 21:59:00Negative *NA*(07/30/18 4:59 PM) [facility] PQNDFW7488-61-60 21:59:00Negative *NA*(07/30/18 4:59 PM) [facility] BFTNTN8955-62-36 21:59:00Negative *NA*(07/30/18 4:59 PM) [facility]DR[facility] LQOJGQ9432-51-29 21:59:00Negative *NA*(07/30/18 4:59 PM) [facility]DR[facility] DUSPWF0207-61-78 21:59:00See Note (07/30/18 4:59 PM)[facility] WiaagcwBNZAFJUAYM5666-13-36 21:59:000.6[facility] XgsetphKSSNPBLTGC5315-50-23 21:59:005.0[facility] LspnurqUAZIKOGGVV4233-03-63 21:59:003.1[facility] [place] XXRZZGKIDI2908-51-04 21:59:000.3[facility] OanbmxzHBTLXMPZFN4632-32-59 21:59:000.1 [facility] EreezypUVFSHFILKE4422-79-43 21:59:000.1[facility] HermannHEMATOLOGY 2018-07-30 21:59:001.1[facility] IzklpbrJCAOJNONBX6927-41-66 21:59:003.1[facility] JzivonaSLMBDEDWFQ9735-66-36 21:59:0036.3[facility] CqwhnbtULBAKZXXGV1752-88-53 21:59:0058.9[facility] WpbeoxgZRBEYTPJUW4205-47-19 21:59:0013.7[facility] [place] VFMNMTVHFB8685-90-77 21:59:0033.0[facility] XvazmcvPDKOWLLZIV7305-27-99 21:59:00 7.5[facility] CkouwioHQEJCONKHV9998-53-08 21:59:14940Dqnnkkjg HermannHEMATOLOGY 2018-07-30 21:59:008.5[facility] NqxwwwmTPEBTKUVXA3559-62-85 21:59:0093.7[facility] ZidsdlqBPSRWUARCM2174-26-57 21:59:0041.6[facility] BshrjgkRCNUKGSRID3899-48-57 21:59:00* Test Item Value Reference Range Interpretation Comments MCH (test code = MCH) 30.9 pg 27.0-31.0 [facility] JahkzvqMFSVIGWOQK4362-21-09 21:59:0013.7[facility] HermannHEMATOLOGY 2018-07-30 21:59:004.44[facility] IakwlqiHLYGCRBPVW5528-93-18 21:59:000.346 [facility] QhiofurVJNVDZDCLM4212-53-63 21:59:42048Ohtgocrh HermannTOXICOLOGY 2018-07-30 21:59:00<2 (07/30/18 4:59 PM)[facility] AlekswxWZFODOZOFL8089-17-25 21:59:004.2[facility] HermannCHEM LSIFR9611-54-51 08:27:59228Pnnnefys HermannCHEM QUBHE7039-78-57 08:27:008.2[facility] HermannCHEM IDXRI5127-53-64 08:27:0026 [facility] HermannCHEM XEDIY4600-01-95 08:27:14531Icofystj HermannCHEM PANEL 2018-07-27 08:27:003.6[facility] HermannCHEM ZNWDJ5701-40-29 08:27:55356Alzefixh HermannCHEM IUFVL4120-25-39 08:27:20073Sygoddtg HermannCHEM BJEIH6941-87-82 08:27:006[facility] HermannCHEM MDKIC2693-87-17 08:27:000.59[facility] HermannCHEM JWDAH3482-16-21 08:27:0010.6[facility] AklhdxsGDCXJGGGOX8606-07-10 08:27:0017.3 [facility] PrziuzvOFFXIQWDRS0679-97-81 08:27:0068.6[facility] HermannHEMATOLOGY 2018-07-27 08:27:002.3[facility] VxijvhrEHHVIRJAUD8053-14-08 08:27:001.8[facility] JgajrgkJKTVPAOMWK8496-71-45 08:27:000.2[facility] ZdcsznjIHPJANLODL2738-11-97 08:27:009.0[facility] ZpjnlowUTRFIXVYVE6098-79-12 08:27:0013.6[facility] [place] ISOCHLQBXA4800-38-72 08:27:000.3[facility] GhvuchmHCZUNINUIC9597-43-76 08:27:00 34.2[facility] KuvkqjpCIFKOXXJMJ7875-27-06 08:27:00* Test Item Value Reference Range Interpretation Comments MCH (test code = MCH) 31.6 pg 27.0-31.0 [facility] BgolicuYVXAQSHMSO9070-14-49 08:27:008.7[facility] HermannHEMATOLOGY 2018-07-27 08:27:0013.2[facility] NscgqryBIOOVOEFDH4383-80-21 08:27:74324Onouobwr ObcypyxCUFMPFYXID7317-06-31 08:27:0092.4[facility] PfsgdniULVBUNOOVI9568-54-24 08:27:0013.1[facility] KrmcbrrBWKULXAUVM0344-85-79 08:27:0037.3[facility] MHTHLGJDVG3701-92-52 08:27:004.03[facility] HvpzpcaAVRCYAXTLA7282-20-11 08:27:00 12.7[facility] HermannURINE UPOY4812-78-11 01:34:00Negative (07/26/18 8:34 PM) [facility]annBLOOD BANK YFKMGKG3684-60-01 13:17:00Negative (07/26/18 8:17 AM) [facility] IhwtrxmOHRBPVUMLAYE8851-59-20 13:17:0013.8[facility] HermannELECTROLYTES 2018-07-26 13:17:18025Lihdwcey HcmpbejJUMOBGFATBAU3025-11-23 13:17:009.0[facility] JbdwmktGJLAOZCPXSWD8577-59-62 13:17:003.8[facility] GycthbiPOSQLADYZSZJ8910-57-60 13:17:90072Ftruhffy WjbsomzUBZRCNAXVHPO4099-83-63 13:17:39865Jfpthacp [place] UYAFWDTFVYGF2554-42-65 13:17:0021[facility] NrccijtUSFGRSNHXLOZ1137-47-12 13:17:00 0.65[facility] EzdxbriLIALFBDPLMOT3021-96-69 13:17:007[facility] HermannELECTROLYTES 2018-07-26 13:17:0078[facility] JcphplfCCPSAERPTC4699-79-08 13:17:0092.8[facility] BllqvfbAEYRPNTKWW4338-34-66 13:17:0041.8[facility] TehxundWKUFHFVCUQ7523-80-75 13:17:02529Aqviwead MsyyujrPIDBQJHXRD8706-38-19 13:17:0013.4[facility] JTDPPSQYGG5929-60-35 13:17:0033.8[facility] XfuzyixRKKNFOPCMG8446-29-13 13:17:00* Test Item Value Reference Range Interpretation Comments MCH (test code = MCH) 31.4 pg 27.0-31.0 [facility] CsbfqmbJVXIQOMWEW3498-06-92 13:17:008.3[facility] HermannHEMATOLOGY 2018-07-26 13:17:0014.1[facility] ZupowubTXCACWBTUR0183-65-25 13:17:005.6[facility] OguilsgUUBFDFSCOW9966-18-79 13:17:004.50[facility] EtsqezhCZCHBVHBPI9707-18-26 13:17:0014.5[facility] HswdvjcPNDTNZUIWY8597-03-48 13:17:000.8[facility] MSPAJDPZZH6903-04-57 13:17:001.9[facility] EjzohzxDRODKUEIAU6268-35-40 13:17:000.8 [facility] WirtqpsIBEETCFKNV0832-33-21 13:17:002.8[facility] HermannHEMATOLOGY 2018-07-26 13:17:001.9[facility] UlrrxvaDZNYFBALIC3006-99-06 13:17:000.1[facility] XpikbqdGZIUDXEQJD2664-95-64 13:17:0049.7[facility] OtwqyrcVEWRVLNTRD9747-59-54 13:17:0033.1[facility] HermannCHEM VMWMT2709-08-50 04:05:22187Lawoslqu HermannCHEM FXEKE4028-56-69 04:05:0013.9[facility] HermannCHEM NXMIY2780-20-19 04:05:00* Test Item Value Reference Range Interpretation Comments B/C Ratio (test code = B/C Ratio) 8 1 6-25 [facility] HermannCHEM DNDDV5719-56-55 04:05:009.3[facility] HermannCHEM PANEL 2018-05-04 04:05:0086[facility] HermannCHEM VVMJN3736-52-12 04:05:006[facility] HermannCHEM PUPJA5413-23-83 04:05:35751Jepjbnjd HermannCHEM SFPIA7780-56-78 04:05:0025[facility] HermannCHEM CUUKG5299-52-73 04:05:78318Jbkvacmd HermannCHEM TDYFD5187-03-63 04:05:003.9[facility] HermannCHEM MZZJO4076-50-12 04:05:000.72 [facility] HermannCHEM KOVKY2700-07-91 04:05:0094[facility] HermannCHEM PANEL 2018-05-04 04:05:0030[facility] HermannCHEM VWEGX1169-68-69 04:05:0062[facility] HermannCHEM FSMQG7855-79-00 04:05:00* Test Item Value Reference Range Interpretation Comments A/G Ratio (test code = A/G Ratio) 1.1 1 0.7-1.6 [facility] HermannCHEM SWIPL9763-32-32 04:05:000.3[facility] HermannCHEM PANEL 2018-05-04 04:05:003.8[facility] HermannCHEM WFGZA5727-57-82 04:05:004.1[facility] HermannCHEM MRGSO5259-03-24 04:05:007.9[facility] TyehciuICFQZTCADBGAQ4818-52-72 04:05:209040Abodypbe BbtkmwfNSUGQOKOCH5746-87-85 04:05:0089.4[facility] BCFMGDETOP1377-55-30 04:05:0014.3[facility] VyhlywtGBWWYBDVHJ3234-68-90 04:05:00 42.3[facility] XbzhihfPEWRACAGGU8555-20-08 04:05:0014.2[facility] HermannHEMATOLOGY 2018-05-04 04:05:01620Tbngbeat NyjcyeeDTCRTUIZKT0263-72-30 04:05:0033.9[facility] DpoccouFGTXVBRTUQ8674-80-35 04:05:00* Test Item Value Reference Range Interpretation Comments MCH (test code = MCH) 30.3 pg 27.0-31.0 [facility] EousapyJBTJMQZCKL6236-67-42 04:05:007.7[facility]annHEMATOLOGY 2018-05-04 04:05:0010.4[facility] ZgjltsjSCUOYPMYEJ9420-09-91 04:05:004.73[facility] IICWH6732-83-97 04:05:00None Seen (05/03/18 10:05 PM)[facility] WRAOC0463-05-70 04:05:00Performed (05/03/18 10:05 PM)[facility] WWBRR7462-81-83 04:05:000.2[facility] STOOL 2018-05-04 04:05:00Negative *NA*(05/03/18 10:05 PM)[facility] GVTHX2559-37-03 04:05:00Large *ABN*(05/03/18 10:05 PM)[facility] HBYSX1958-76-85 04:05:00Negative (05/03/18 10:05 PM)[facility] EXBXP7205-05-51 04:05:00* Test Item Value Reference Range Interpretation Comments UA pH (test code = UA pH) 8.0 1 5.0-8.0 [facility] YCISI5003-77-11 04:05:00Negative (05/03/18 10:05 PM) [facility] FQPNT3858-44-46 04:05:00Clear (05/03/18 10:05 PM) [facility] LVFGD5026-43-81 04:05:00<=1.005 *NA*(05/03/18 10:05 PM) [facility] PUWFS3446-68-90 04:05:00Negative *NA*(05/03/18 10:05 PM)[facility] UJWSK7173-21-80 04:05:00Negative (05/03/18 10:05 PM) [facility] QRPLP7697-50-38 04:05:00Trace *ABN*(05/03/18 10:05 PM) [facility] TPJGJ6334-68-09 04:05:00Yellow *NA*(05/03/18 10:05 PM) [facility] WWYI1370-25-38 04:05:00Positive *ABN*(05/03/18 10:05 PM) [facility]annDRUG FQTHCW7178-87-25 17:05:00See Note (10/31/17 12:05 PM) [facility]annDR[facility] BUPLQH2269-21-07 17:05:00Negative *NA*(10/31/17 12:05 PM) [facility] KBXFDD7444-58-95 17:05:00Negative *NA*(10/31/17 12:05 PM) [facility] FSYOYG1635-92-17 17:05:00Negative *NA*(10/31/17 12:05 PM) [facility] KOXJNO1746-17-28 17:05:00Negative *NA*(10/31/17 12:05 PM) [facility] DFMFAK3829-46-54 17:05:00Negative *NA*(10/31/17 12:05 PM) [facility] LSSSGP6001-63-74 17:05:00Positive *ABN*(10/31/17 12:05 PM) [facility] GOPNZF6301-40-62 17:05:00Negative *NA*(10/31/17 12:05 PM) [facility] TacspwyFATUMNBKJU8595-67-22 15:24:00435Foqynupq HermannTOXICOLOGY 2017-10-31 15:24:000.206[facility] AmqbbmeCNWLJOEUGQPY2226-23-88 09:49:4728 [facility] AvpglhqGMZNNJJMWHZE4320-77-14 09:49:477.9[facility] HermannELECTROLYTES 2017-10-31 09:49:38752Mtjzadzg YbiztbwILFVYDFJSPVQ5518-23-31 09:49:474.2[facility] JunxjkjPPYLXLKNTUIR0439-09-93 09:49:478.2[facility] KbektbnAFXABQUZVTKD8585-75-61 09:49:470.62[facility] UecusjnRVKKPLPPLANY5692-80-85 09:49:473[facility] QRQQPEZXWHYJ0275-13-47 09:49:4785[facility] YkofkvnUEOGALBWUKEP3280-75-75 09:49:47 146[facility] XpjgbdzHWSEKECYWMIS5943-20-80 09:49:4736[facility] HermannELECTROLYTES 2017-10-31 09:49:473.4[facility] ZxbkjewTUOXNJRSJRZC9082-45-66 09:49:470.3[facility] YhtgbiqHHWVTCSLDKRG0669-40-59 09:49:72485Fobuoosy YtynamgQULLOBGUKFOB9073-96-04 09:49:4761[facility] IbpdmorDECLEWZVTQLL2822-99-71 09:49:63341Toiifapg Andry ZFFOVCBLLPJQ7151-09-36 09:49:474.8[facility] NrjmuxmDLURKKKOBUOM5017-00-78 09:49:47* Test Item Value Reference Range Interpretation Comments B/C Ratio (test code = B/C Ratio) 5 1 6-25 [facility] MssnqviNRWKFDCPIAHZ6137-45-91 09:49:47* Test Item Value Reference Range Interpretation Comments A/G Ratio (test code = A/G Ratio) 0.7 1 0.7-1.6 [facility] KencyiuUIZWIGSPPVCO3717-89-81 09:49:4715.2[facility] HermannHEMATOLOGY 2017-10-31 09:49:472.2[facility] SdqcosbELIVHWFSNU4624-92-20 09:49:471.1[facility] RpjheaxGIXXDYXTDE3520-39-71 09:49:470.4[facility] OcktsljTNDDOXWETE4866-94-90 09:49:470.1[facility] RboqfedBNIBHDYVKV8980-05-49 09:49:4729.3[facility] KRINHXPNTF1463-42-59 09:49:471.8[facility] PxmnmgkUFJWHWYUFG0113-02-42 09:49:47 10.3[facility] CxduvpqVSKVKRZBHC2557-48-33 09:49:470.9[facility] HermannHEMATOLOGY 2017-10-31 09:49:4757.7[facility] VmqysbnSXRYRUSDWJ5306-55-13 09:49:4734.4[facility] JazcqbqSWYXZRQWDA4608-00-40 09:49:4786.8[facility] FnmlsumKGQQPXIEMY6487-29-74 09:49:477.0[facility] ZeemyigUBHAHPUXQF6867-82-26 09:49:47* Test Item Value Reference Range Interpretation Comments MCH (test code = MCH) 28.5 pg 27.0-31.0 [facility] OcxgbboDVINSTVDAB3703-97-78 09:49:32512Qnblwkha HermannHEMATOLOGY 2017-10-31 09:49:4732.9[facility] KekjjnuYBLFPRYPGL5827-09-45 09:49:4718.4[facility] JfmexbfHIHWIKDNZS9314-33-91 09:49:473.9[facility] MqjjfefTAHIRQQXPU3229-14-75 09:49:473.97[facility] WkwaelpYLLTBFYAFV7736-09-28 09:49:4711.3[facility] MSELUEMCPZ3911-12-56 09:49:47<2[facility] MfalsbwAEQOBOAEOB9040-20-09 09:49:47 0.325[facility] HgypriuOXBQDVURTV4424-61-10 09:49:89470Ynxjxdaw HermannTOXICOLOGY 2017-10-31 09:49:473.3[facility] LvjghedSYIRJNVPFDYN6482-96-51 21:22:0024[facility] IftxlooQNGOIJCQZWDO2166-93-83 21:22:009.2[facility] DtgmfjnQMLQMUESGAON8456-38-79 21:22:40931Peygjujx LjdogbbHGAPNHXKVKLQ8475-54-56 21:22:004.0[facility] AUSCUSMFHUWK0517-87-61 21:22:68151Xokobuiq TnzdvfdRYZRRRKXBRAZ0577-97-92 21:22:000.76[facility] XbefdbtYDUNTZDSNFRF0458-55-68 21:22:004[facility] RHZIOZLABNAS8727-98-14 21:22:23346Orfrupjm BxsqvfzBKJBTFFZIJQL5878-58-81 21:22:33950Syuuldgg DekevasEKKVOCQRRSBW2335-16-52 21:22:0013.0[facility] MEIDOWXAIJ2698-38-47 21:22:86903Jekqnpyq UknncxvSAVYEAUIFJ1568-11-85 21:22:008.0 [facility] AxvvsxrJJJCNDJMMR1866-76-18 21:22:009.7[facility] HermannHEMATOLOGY 2017-08-07 21:22:003.81[facility] IllufnqHPFMQZMBIS2352-99-46 21:22:0032.6[facility] PidlftfDKTUHDEQKU6763-75-75 21:22:0015.2[facility] NdrhungLYAQUBTPEU1901-14-43 21:22:0010.9[facility] NrgapjaKHMJSVTLUC0161-46-50 21:22:0087.8[facility] OFQVTMXQHL1354-76-93 21:22:00* Test Item Value Reference Range Interpretation Comments MCH (test code = MCH) 28.6 pg 27.0-31.0 [facility] RayaruwCBXTCOOWBF0554-12-93 21:22:0033.4[facility] HermannHEMATOLOGY 2017-08-07 21:22:0064.9[facility] SpmrklqFSZDYIUWLP5634-32-61 21:22:001.4[facility] WvyfibhYTMTWNJVLL5455-96-67 21:22:000.5[facility] YmkhufxZYLDCWUFUM2885-66-64 21:22:006.3[facility] LdoxwmiOARJQTYTTL8947-72-83 21:22:001.1[facility] QDTBLRSFPA1085-72-71 21:22:001.9[facility] IdqckxoUDRHSKOKZO3668-89-96 21:22:000.1 [facility] UavfuttBYRSEKMRSU8844-43-52 21:22:0019.3[facility] HermannHEMATOLOGY 2017-08-07 21:22:0014.2[facility] JksfuxiFPLRMMIVMW0605-85-72 21:22:000.1[facility] AND BDYSS8715-91-62 21:14:00Negative (08/07/17 4:14 PM)[facility] CEEDD3813-81-10 21:14:00* Test Item Value Reference Range Interpretation Comments UA pH (test code = UA pH) 6.0 1 5.0-8.0 [facility] NLYEY2517-61-86 21:14:00Negative *NA*(08/07/17 4:14 PM) [facility] WEGVI1876-88-85 21:14:00Negative *NA*(08/07/17 4:14 PM) [facility] PZPYF1626-25-98 21:14:00Negative (08/07/17 4:14 PM) [facility] DSQMG7618-77-20 21:14:00Clear (08/07/17 4:14 PM)[facility] QFPIU0559-31-13 21:14:00Yellow *NA*(08/07/17 4:14 PM)[facility] UDXKI4294-13-99 21:14:00<=1.005 *NA*(08/07/17 4:14 PM)[facility] WFLKA5698-04-96 21:14:00Negative (08/07/17 4:14 PM)[facility] QNMCE1990-38-18 21:14:00Negative (08/07/17 4:14 PM)[facility] QJCPV0104-33-09 21:14:00Moderate *ABN*(08/07/17 4:14 PM)[facility] ZLDCK9611-11-75 21:14:000.2[facility]annUR[facility] NDCH9549-74-15 21:14:00Negative (08/07/17 4:14 PM)[facility] HermannEthyl Alcohol Ovyom0287-96-73 23:16:00* Test Item Value Reference Range Interpretation Comments Ethyl Alcohol Level (test code = 5643-2) 246.1 0.0-10.0 H [facility] CenterCreatine Kinase DT8732-60-85 22:18:00* Test Item Value Reference Range Interpretation Comments Creatine Kinase MB (test code = 12018-7) 2.00 0-5.0 [facility] CenterTroponin H9092-20-04 22:18:00* Test Item Value Reference Range Interpretation Comments Troponin I (test code = FNS3073) 0.001 0-0.300 [facility]odium Hmvey2692-11-38 22:11:00* Test Item Value Reference Range Interpretation Comments Sodium Level (test code = 2951-2) 143 136-145 [facility] CenterPotassium Fwlvz2931-86-71 22:11:00* Test Item Value Reference Range Interpretation Comments Potassium Level (test code = 2823-3) 3.8 3.5-5.1 [facility] CenterChloride Alksh3409-95-50 22:11:00* Test Item Value Reference Range Interpretation Comments Chloride Level (test code = 2075-0) 109 98-107 H [facility] CenterCarbon Dioxide Vkmrf9671-89-35 22:11:00* Test Item Value Reference Range Interpretation Comments Carbon Dioxide Level (test code = 2028-9) 22 -29 [facility] CenterAnion Ecb1800-37-37 22:11:00* Test Item Value Reference Range Interpretation Comments Anion Gap (test code = 60128-5) 15.8 8-16 [facility] CenterBlood Urea Dotnyrqg2668-01-93 22:11:00* Test Item Value Reference Range Interpretation Comments Blood Urea Nitrogen (test code = 3094-0) 6 7-26 L [facility] CenterCreatinine2018-04-14 22:11:00* Test Item Value Reference Range Interpretation Comments Creatinine (test code = 2160-0) 0.72 0.57-1.11 [facility] CenterBUN/Creatinine Rluuu7844-70-44 22:11:00* Test Item Value Reference Range Interpretation Comments BUN/Creatinine Ratio (test code = 3097-3) 8 6-25 [facility] CenterEstimat Glomerular Filtration Rate 2017-06-18 22:11:00* Test Item Value Reference Range Interpretation Comments Estimat Glomerular Filtration Rate (test code = 95586-4) 60- >60 Ranges were taken from the National Kidney Disease Education Program and the [facility] literature.Reference ranges:60 or greater: Mfnwdq79-05 ( for 3 consecutive months): Chronic kidney disease 15 or less: Kidney failureCarl R. Darnall Army Medical CenterGlucose Hswng8986-15-72 22:11:00* Test Item Value Reference Range Interpretation Comments Glucose Level (test code = RNR4970) 84 74-118 [facility] CenterCalcium Ognjk6407-42-85 22:11:00* Test Item Value Reference Range Interpretation Comments Calcium Level (test code = 63201-7) 9.2 8.4-10.2 [facility] CenterTotal Fyhnazlms2791-20-22 22:11:00* Test Item Value Reference Range Interpretation Comments Total Bilirubin (test code = 1975-2) 0.2 0.2-1.2 [facility] CenterAspartate Amino Transf (AST/SGOT) 2017-06-18 22:11:00* Test Item Value Reference Range Interpretation Comments Aspartate Amino Transf (AST/SGOT) (test code = Aspartate Amino Transf (AST/SGOT)) 29 5-34 [facility] CenterAlanine Aminotransferase (ALT/SGPT) 2017-06-18 22:11:00* Test Item Value Reference Range Interpretation Comments Alanine Aminotransferase (ALT/SGPT) (test code = 1742-6) 27 0-55 [facility] CenterTotal Qocboyy9493-69-69 22:11:00* Test Item Value Reference Range Interpretation Comments Total Protein (test code = 2885-2) 8.1 6.5-8.1 [facility] CenterAlbumin2018-04-14 22:11:00* Test Item Value Reference Range Interpretation Comments Albumin (test code = 1751-7) 4.1 3.5-5.0 [facility] CenterGlobulin2018-04-14 22:11:00* Test Item Value Reference Range Interpretation Comments Globulin (test code = 12480-7) 4.0 2.3-3.5 H [facility] CenterAlbumin/Globulin Nmmgm4275-25-53 22:11:00 * Test Item Value Reference Range Interpretation Comments Albumin/Globulin Ratio (test code = 1759-0) 1.0 0.8-2.0 [facility] CenterAlkaline Bprvqaoopma4974-69-24 22:11:00* Test Item Value Reference Range Interpretation Comments Alkaline Phosphatase (test code = 6768-6) 91 40-150 [facility] CenterCreatine Tyfqux4787-80-86 22:11:00* Test Item Value Reference Range Interpretation Comments Creatine Kinase (test code = 2157-6) 119 29-168 [facility] CenterWhite Blood Cmpqg3425-58-49 21:55:00* Test Item Value Reference Range Interpretation Comments White Blood Count (test code = 6690-2) 7.28 4.8-10.8 [facility] CenterRed Blood Eiedt8723-52-38 21:55:00* Test Item Value Reference Range Interpretation Comments Red Blood Count (test code = 789-8) 4.19 3.6-5.1 [facility] CenterHemoglobin2018-04-14 21:55:00* Test Item Value Reference Range Interpretation Comments Hemoglobin (test code = 55512-4) 12.9 12.0-16.0 [facility] CenterHematocrit2018-04-14 21:55:00* Test Item Value Reference Range Interpretation Comments Hematocrit (test code = 4544-3) 38.7 34.2-44.1 [facility] CenterMean Corpuscular Fmgoct8112-37-19 21:55:00* Test Item Value Reference Range Interpretation Comments Mean Corpuscular Volume (test code = 787-2) 92.4 81-99 [facility] CenterMean Corpuscular Okialxzlqm9457-64-98 21:55:00* Test Item Value Reference Range Interpretation Comments Mean Corpuscular Hemoglobin (test code = 785-6) 30.8 28-32 [facility] CenterMean Corpuscular Hemoglobin Concent 2017-06-18 21:55:00* Test Item Value Reference Range Interpretation Comments Mean Corpuscular Hemoglobin Concent (test code = 786-4) 33.3 31-35 [facility] CenterRed Cell Distribution Rdxjp0017-19-05 21:55:00* Test Item Value Reference Range Interpretation Comments Red Cell Distribution Width (test code = 18697-6) 12.0 11.7 -14.4 [facility] CenterPlatelet Jshhl0830-68-52 21:55:00* Test Item Value Reference Range Interpretation Comments Platelet Count (test code = 777-3) 304 140-360 [facility] CenterNeutrophils (%) (Auto)2017-06-18 21:55:00 * Test Item Value Reference Range Interpretation Comments Neutrophils (%) (Auto) (test code = 92631-8) 54.4 38.7-80.0 [facility] CenterLymphocytes (%) (Auto)2017-06-18 21:55:00 * Test Item Value Reference Range Interpretation Comments Lymphocytes (%) (Auto) (test code = 736-9) 38.0 18.0-39.1 [facility] CenterMonocytes (%) (Auto)2017-06-18 21:55:00* Test Item Value Reference Range Interpretation Comments Monocytes (%) (Auto) (test code = 5905-5) 4.4 4.4-11.3 [facility] CenterEosinophils (%) (Auto)2017-06-18 21:55:00 * Test Item Value Reference Range Interpretation Comments Eosinophils (%) (Auto) (test code = 713-8) 2.6 0.0-6.0 [facility] CenterBasophils (%) (Auto)2017-06-18 21:55:00* Test Item Value Reference Range Interpretation Comments Basophils (%) (Auto) (test code = 706-2) 0.5 0.0-1.0 [facility] CenterIM GRANULOCYTES %2017-06-18 21:55:00* Test Item Value Reference Range Interpretation Comments IM GRANULOCYTES % (test code = IM GRANULOCYTES %) 0.1 0.0- 1.0 [facility] CenterNeutrophils # (Auto)2017-06-18 21:55:00* Test Item Value Reference Range Interpretation Comments Neutrophils # (Auto) (test code = 751-8) 4.0 2.1-6.9 [facility] CenterLymphocytes # (Auto)2017-06-18 21:55:00* Test Item Value Reference Range Interpretation Comments Lymphocytes # (Auto) (test code = 71650-8) 2.8 1.0-3.2 [facility] CenterMonocytes # (Auto)2017-06-18 21:55:00* Test Item Value Reference Range Interpretation Comments Monocytes # (Auto) (test code = 742-7) 0.3 0.2-0.8 [facility] CenterEosinophils # (Auto)2017-06-18 21:55:00* Test Item Value Reference Range Interpretation Comments Eosinophils # (Auto) (test code = 711-2) 0.2 0.0-0.4 [facility] CenterBasophils # (Auto)2017-06-18 21:55:00* Test Item Value Reference Range Interpretation Comments Basophils # (Auto) (test code = 704-7) 0.0 0.0-0.1 [facility] CenterAbsolute Immature Granulocyte (auto 2017-06-18 21:55:00* Test Item Value Reference Range Interpretation Comments Absolute Immature Granulocyte (auto (chelsi t code = Absolute Immature Granulocyte (auto) 0.01 0-0.1 [facility] CenterMagnesium Dqhsl0339-89-15 22:48:00* Test Item Value Reference Range Interpretation Comments Magnesium Level (test code = 65176-7) 2.0 1.3-2.1 [facility] CenterAcetaminophen Amscb0427-03-70 22:48:00* Test Item Value Reference Range Interpretation Comments Acetaminophen Level (test code = 85119-8) 4 10-30 L [facility] Tyleralicylates Bjroq0054-26-60 22:48:00* Test Item Value Reference Range Interpretation Comments Salicylates Level (test code = 4024-6) -5.0 0-30 [facility] CenterUrine RJG6691-81-59 22:39:00* Test Item Value Reference Range Interpretation Comments Urine WBC (test code = 5821-4) 0-5 0-5 [facility] CenterUrine NOL1368-63-38 22:39:00* Test Item Value Reference Range Interpretation Comments Urine RBC (test code = 39882-0) 0-5 0-5 [facility] CenterUrine Mbdbrvkp2142-43-21 22:39:00* Test Item Value Reference Range Interpretation Comments Urine Bacteria (test code = 46305-4) RARE NONE [facility] CenterUrine Epithelial Imsjg4313-15-35 22:39:00 * Test Item Value Reference Range Interpretation Comments Urine Epithelial Cells (test code = 87475-8) RARE NONE [facility] CenterProthrombin Kusj7358-66-61 22:38:00* Test Item Value Reference Range Interpretation Comments Prothrombin Time (test code = 5902-2) 13.8 11.9-14.5 [facility] CenterProthromb Time International Ratio 2017-01-10 22:38:00* Test Item Value Reference Range Interpretation Comments Prothromb Time International Ratio (test code = 6301-6) 1.01 Oral Anticoagulant Therapy INR Values:1. Low Intensity Therapy 1.5 - 2.02 . Moderate Intensity Therapy 2.0 - 3.03. High Intensity Therapy(1) 2.5 - 3. 54. High Intensity Therapy(2) 3.0 - 4.05. Panic Value INR > 5.0 [facility] CenterActivated Partial Thromboplast Time 2017-01-10 22:38:00* Test Item Value Reference Range Interpretation Comments Activated Partial Thromboplast Time (test code = 66980-6) 30.9 23.8-35.5 [facility] CenterUrine Opiates Hvqspz5783-53-52 22:31:00* Test Item Value Reference Range Interpretation Comments Urine Opiates Screen (test code = 43175-2) POSITIVE NEGATIVE H ALL TESTS PERFORMED MANUALLY ON SIGNIFY ER TESTThis test provides only a screen. Positive results should be repeated by a confirmatory test.[facility] CenterUrine Barbiturates Uyihqz1234-00-61 22:31:00* Test Item Value Reference Range Interpretation Comments Urine Barbiturates Screen (test code = 962817442) NEGATIVE NEGA TIVE [facility] CenterUrine Phencyclidine Cinbqm7865-50-66 22:31:00* Test Item Value Reference Range Interpretation Comments Urine Phencyclidine Screen (test code = 12649-7) NEGATIVE NEGAT BEULAH [facility] CenterUrine Amphetamines Errptp7752-53-82 22:31:00* Test Item Value Reference Range Interpretation Comments Urine Amphetamines Screen (test code = 86598-3) NEGATIVE NEGATI VE [facility] CenterUrine Benzodiazepines Qpjxmn4600-42-08 22:31:00* Test Item Value Reference Range Interpretation Comments Urine Benzodiazepines Screen (test code = 22240-7) POSITIVE NEG ATIVE H This test provides only a screen. Positive results should be repeated by a confi rmatory test.[facility] CenterUrine Cocaine Screen 2017-01-10 22:31:00* Test Item Value Reference Range Interpretation Comments Urine Cocaine Screen (test code = Urine Cocaine Screen) NEGATIVE NEGATIVE [facility] CenterUrine Cannabinoids Oxfkuq9621-07-35 22:31:00* Test Item Value Reference Range Interpretation Comments Urine Cannabinoids Screen (test code = 73484-4) NEGATIVE NEGATI VE THESE RESULTS ARE FOR MEDICAL TREATMENT ONLYTHIS REPORT CONTAINS UNCONFIR MED SCREENING RESULTS*POSITIVE RESULTS WILL BE CONFIRMED BY REFERENCE LAB UPON R EQUEST CUT-OFFDRUG CLASS CONCENTRATION ng/mLAmphetamines 1000Methamphetamines 1000Cocaine 300Opiate 300Phencyc lidine 25Cannabinoid 50Barbiturates 300Benzodiazepine 300Methadone 300[facility] CenterUrine Pass8626-95-71 22:30:00* Test Item Value Reference Range Interpretation Comments Urine Test (test code = 2106-3) NEGATIVE NEGATIVE [facility] CenterUrine Vgivz9076-52-50 22:29:00* Test Item Value Reference Range Interpretation Comments Urine Color (test code = 5778-6) STRAW YELLOW [facility] CenterUrine Bvxecjz0819-37-93 22:29:00* Test Item Value Reference Range Interpretation Comments Urine Clarity (test code = 90882-3) CLEAR CLEAR [facility] CenterUrine Specific Cxooabe0176-44-35 22:29:00 * Test Item Value Reference Range Interpretation Comments Urine Specific [place] (test code = 5811-5) 1.010 1.010-1.02 5 [facility] CenterUrine rK1655-84-36 22:29:00* Test Item Value Reference Range Interpretation Comments Urine pH (test code = 54740-4) 5 5-7 [facility] CenterUrine Leukocyte Qucwawhu6076-65-14 22:29:00* Test Item Value Reference Range Interpretation Comments Urine Leukocyte Esterase (test code = 5799-2) NEGATIVE NEGATIVE [facility] CenterUrine Osbqbzh1183-41-53 22:29:00* Test Item Value Reference Range Interpretation Comments Urine Nitrite (test code = 45991-0) NEGATIVE NEGATIVE [facility] CenterUrine Fxassxy1113-88-95 22:29:00* Test Item Value Reference Range Interpretation Comments Urine Protein (test code = 5804-0) NEGATIVE NEGATIVE [facility] CenterUrine Glucose (UA)2017-01-10 22:29:00* Test Item Value Reference Range Interpretation Comments Urine Glucose (UA) (test code = 2349-9) NEGATIVE NEGATIVE [facility] CenterUrine Zagnhzz4379-53-47 22:29:00* Test Item Value Reference Range Interpretation Comments Urine Ketones (test code = 43683-7) NEGATIVE NEGATIVE [facility] CenterUrine Wuaendkisajj4297-06-65 22:29:00* Test Item Value Reference Range Interpretation Comments Urine Urobilinogen (test code = 84428-0) 0.2 0.2-1 [facility] CenterUrine Rxexwjvmo0086-38-10 22:29:00* Test Item Value Reference Range Interpretation Comments Urine Bilirubin (test code = 1978-6) NEGATIVE NEGATIVE [facility] CenterUrine Hvtlj6724-99-33 22:29:00* Test Item Value Reference Range Interpretation Comments Urine Blood (test code = 39979-9) NEGATIVE NEGATIVE [facility] SINGLE (PORTABLE) [place] [address] Patient Name: MANDY ASCENCIO MR #: [id number] : 1985 Age/Sex: 31/F Req #: [id number] Adm Physician: Ordered by: SHAKA MACK MD Report #: [id number] Location: ER Room/ Bed: Procedure: [id number] DX/CHEST SINGLE (PORTABLE) Exam Date: 06/18/17 Exam [...] TO: SHAKA MACK MD CT BRAIN WO [place] [address] Patient Name: MANDY ASCENCIO MR #: [id number] : 1985 Age/Sex: 31/F Req #: [id number] Adm Physician: Ordered by: JENN MCKEON MD Report #: [id number] Location: ER Room/Bed: Procedure: [id number] CT/CT BRAIN WO Exam Date: Exam Time: [...] No abnormal densities. No masses, hemorrhage, ac [place] or chronic vascular insults. Sellar/suprasellar region: No abnormalitie s. Craniocervical junction: Patent foramen magnum. No Chiari one malformation. Incidental findings: None. Impression: No intracranial abnor malities. Signed by: Dr. Linsey Jane M.D. on 01/10/2017 11:08 PM Dictated By: LINSEY MCNEILL MD 07 Transcribed By: AGNIESZKA on 01/10/172307 COPY TO: JENN MCKEON MD CHEST SINGLE (PORTABLE) [place] [address] Patient Name: MANDY ASCENCIO MR #: [id number] : 1985 Age/Sex: 31/F Req #: [id number] Adm Physician: Ordered by: JENN MCKEON MD Report #: [id number] Location: ER Room/Bed: Procedure: [id number] DX/CHEST SINGLE (PORTABLE) Exam D ate: Exam [...] ed By: MARTIR JOHNSON MD on 01/10/17 735 Transcribed By: AGNIESZKA on 08/21 1250 COPY TO: JENN MCKEON MD
[2019-11-23] MEDS: CHLORDIAZEPOXIDE HCL 25 MG CAP PO PRN (18:30)
[2019-11-23] MEDS ORDERED: LORAZEPAM INJ 2 MG/ML VIAL IV PRN (18:45)
--- NOTE | 2019-11-23 23:34 | NUR ---
SPOKE TO DR. SHAIKH REGARDING C/O NAUSEA. NEW ORDER RECEIVED FOR REGLAN 10MG Q6H SCHEDULED.
[2019-11-23] MEDS: METOCLOPRAMIDE HCL 10 MG/2ML VIAL IV SCH (23:51)
[2019-11-24] VITALS (8 sets, daily range): BP systolic 122–143; BP diastolic 86–92
[2019-11-24] MEDS: CHLORDIAZEPOXIDE HCL 25 MG CAP PO PRN ×4 (03:30→22:40)
[2019-11-24] MEDS: ONDANSETRON HCL INJ 2MG/ML 2ML 2 MG/ML VIAL IV PRN ×2 (03:38→22:40)
[2019-11-24] MEDS: KETOROLAC TROMETHAMINE 30 MG/ML VIAL IV PRN ×3 (03:38→16:32)
[2019-11-24 05:46] LABS: BASOPHILS % 1.2 % (0.0-1.0); EOSINOPHILS # (AUTO) 0.1 (0.0-0.4); EOSINOPHILS % 2.7 % (0.0-6.0); HEMATOCRIT 38.3 % (34.2-44.1); LYMPHOCYTES # (AUTO) 1.5 (1.0-3.2); LYMPHOCYTES % 42.8 % (18.0-39.1); MEAN CORPUSCULAR HEMOGLOBIN 33.9 pg (28-32); MEAN CORPUSCULAR HGB CONC 33.9 g/dL (31-35); MONOCYTES # (AUTO) 0.4 (0.2-0.8); MONOCYTES % 12.4 % (4.4-11.3); NEUTROPHILS # (AUTO) 1.4 (2.1-6.9); NEUTROPHILS % 40.6 % (38.7-80.0); PLATELET COUNT 178 x10e3/uL (140-360); RED BLOOD COUNT 3.83 x10e6/uL (3.6-5.1); RED CELL DISTRIBUTION WIDTH 14.5 % (11.7-14.4)
[2019-11-24] MEDS: MORPHINE SULFATE 2 MG/ML SYR 1ML IV PRN (05:55)
[2019-11-24 06:00] LABS: ANION GAP 18.4 mmol/L (8-16); BLOOD UREA NITROGEN < 5 mg/dL (7-26); CALCIUM 7.4 mg/dL (8.4-10.2); CARBON DIOXIDE 19 mmol/L (22-29); CHLORIDE 104 mmol/L (98-107); CREATININE, SERUM 0.66 mg/dL (0.57-1.11); EST GLOMERULAR FILTRATION RATE > 60 ML/MIN (60-); GLUCOSE 71 mg/dL (74-118); POTASSIUM 3.4 mmol/L (3.5-5.1); SODIUM 138 mmol/L (136-145)
[2019-11-24] MEDS: METOCLOPRAMIDE HCL 10 MG/2ML VIAL IV SCH ×4 (06:00→23:55)
[2019-11-24 06:04] LABS: BUN/CREATININE RATIO 8 (6-25)
--- NOTE | 2019-11-24 06:19 | NUR ---
SPOKE TO DENA HERRERA NP REGARDING HOME MED PROZAC. NEW ORDER RECEIVED TO CONTINUE PROZAC.
[2019-11-24] MEDS: SODIUM CHLORIDE 0.45% 1,000 ML IV SCH ×2 (06:26→22:47)
--- NOTE | 2019-11-24 07:07 | NUR ---
Notified Akilah Douglass NP that today is Day 2 Obs. She stated Maria Luz NATHAN will be seeing pt today, and she will notify her and give her CM cell.
[2019-11-24] MEDS ORDERED: PANTOPRAZOLE SO40 MG PO (07:18)
[2019-11-24] MEDS ORDERED: REGLAN10 MG PO (07:18)
[2019-11-24] MEDS ORDERED: ZOFRAN4 MG PO (07:18)
--- NOTE | 2019-11-24 07:26 | NUR ---
Akilah Douglass BIN P[employer]ER notified CM dc plan is to dc home today if pt is tolerating diet.
[2019-11-24] MEDS ORDERED: POTASSIUM CHLORIDE 20MEQ/100ML 100 ML IV ONE (07:30)
[2019-11-24] MEDS: LAMOTRIGINE 100 MG TAB PO SCH ×2 (08:16→16:32)
[2019-11-24] MEDS: FOLIC ACID 1 MG TAB PO SCH (08:16)
[2019-11-24] MEDS: FLUOXETINE HCL 20 MG CAP PO SCH (08:16)
[2019-11-24] MEDS: PANTOPRAZOLE 40 MG 10ML VIAL IV SCH ×2 (08:16→16:32)
[2019-11-24] MEDS: THIAMINE HCL 100 MG TAB PO SCH (08:16)
--- NOTE | 2019-11-24 12:19 | NUR ---
Serena MITCHELL reported to CM that she witnessed the pt vomit some after eating few bites of lunch. Pt will continue to be monitored for n/v. Possible dc later this evening if this improves.
--- NOTE | 2019-11-24 22:17 | NUR ---
DR. SHAIKH DOING ROUNDS, NEW ORDER RECEIVED FOR TRAMADOL PO Q6H PRN
[2019-11-24] MEDS: TRAMADOL HCL 50 MG TAB PO PRN (23:53)
[2019-11-25] VITALS (8 sets, daily range): BP systolic 119–131; BP diastolic 77–93
[2019-11-25] MEDS: CHLORDIAZEPOXIDE HCL 25 MG CAP PO PRN ×3 (04:52→18:45)
[2019-11-25] MEDS: ONDANSETRON HCL INJ 2MG/ML 2ML 2 MG/ML VIAL IV PRN (04:52)
[2019-11-25] MEDS: METOCLOPRAMIDE HCL 10 MG/2ML VIAL IV SCH ×3 (06:03→16:55)
[2019-11-25] MEDS: TRAMADOL HCL 50 MG TAB PO PRN ×3 (06:06→18:45)
--- NOTE | 2019-11-25 07:24 | NUR ---
DAY 3 OBS. CM SPOKE WITH JOSE ANGEL MITCHELL. SHE STATED PT WAS PLACED BACK ON CLEAR LIQUIDS DUE TO VOMITING. PT ATE JELLO THROUGH THE NIGHT W/O DIFFICULTY. PT HAVING INCREASED APPETITE, AND NOW WANTING DIET ADVANCED. ANTICIPATE DC HOME LATER TODAY.
[2019-11-25] MEDS: FLUOXETINE HCL 20 MG CAP PO SCH (08:56)
[2019-11-25] MEDS: PANTOPRAZOLE 40 MG 10ML VIAL IV SCH ×2 (08:56→16:55)
[2019-11-25] MEDS: THIAMINE HCL 100 MG TAB PO SCH (08:56)
[2019-11-25] MEDS: FOLIC ACID 1 MG TAB PO SCH (08:56)
[2019-11-25] MEDS: LAMOTRIGINE 100 MG TAB PO SCH ×2 (08:56→16:55)
[2019-11-25] MEDS: SODIUM CHLORIDE 0.45% 1,000 ML IV SCH ×2 (08:56→23:15)
[2019-11-25] MEDS ORDERED: IBUPROFEN 400 MG TAB PO STA (17:32)
--- NOTE | 2019-11-25 22:58 | NUR ---
SPOKE TO DR. SHAIKH REGARDING C/O CONSTIPATION AND ABDOMINAL CRAMPS. NEW ORDER RECEIVED FOR DULCOLAX 10MG SUPPOSITORY ONCE.
[2019-11-25] MEDS ORDERED: BISACODYL 10 MG SUPP PR ONE (23:15)
[2019-11-26] VITALS: BP 115/80
[2019-11-26] MEDS: METOCLOPRAMIDE HCL 10 MG/2ML VIAL IV SCH ×4 (00:06→16:20)
[2019-11-26] MEDS: CHLORDIAZEPOXIDE HCL 25 MG CAP PO PRN ×4 (00:50→20:03)
--- NOTE | 2019-11-26 03:20 | NUR ---
DR. SHAIKH DOING ROUNDS, NEW ORDER RECEIVED TO DC TORADOL AND TO GIVE MILK OF MAGNESIA X1.
[2019-11-26] MEDS ORDERED: MAGNESIUM HYDROXIDE 30 ML UDC PO ONE (03:30)
[2019-11-26 04:00] VITALS: BP 122/89
[2019-11-26 06:10] LABS: BASOPHILS % 0.8 % (0.0-1.0); EOSINOPHILS # (AUTO) 0.1 (0.0-0.4); EOSINOPHILS % 2.3 % (0.0-6.0); HEMATOCRIT 37.6 % (34.2-44.1); HEMOGLOBIN 12.7 g/dL (12.0-16.0); LYMPHOCYTES # (AUTO) 1.6 (1.0-3.2); LYMPHOCYTES % 34.3 % (18.0-39.1); MEAN CORPUSCULAR HGB CONC 33.8 g/dL (31-35); MEAN CORPUSCULAR VOLUME 97.7 fL (81-99); MONOCYTES # (AUTO) 0.4 (0.2-0.8); MONOCYTES % 8.4 % (4.4-11.3); NEUTROPHILS # (AUTO) 2.6 (2.1-6.9); NEUTROPHILS % 53.6 % (38.7-80.0); PLATELET COUNT 209 x10e3/uL (140-360); RED BLOOD COUNT 3.85 x10e6/uL (3.6-5.1); RED CELL DISTRIBUTION WIDTH 14.6 % (11.7-14.4)
[2019-11-26 06:23] LABS: ALANINE AMINOTRANSFERASE 44 IU/L (0-55); ALBUMIN 3.7 g/dL (3.5-5.0); ALBUMIN/GLOBULIN RATIO 1.3 (0.8-2.0); ALKALINE PHOSPHATASE 168 IU/L (40-150); AMYLASE 26 U/L (25-125); ANION GAP 13.5 mmol/L (8-16); BLOOD UREA NITROGEN < 5 mg/dL (7-26); CARBON DIOXIDE 22 mmol/L (22-29); CHLORIDE 106 mmol/L (98-107); CREATININE, SERUM 0.63 mg/dL (0.57-1.11); EST GLOMERULAR FILTRATION RATE > 60 ML/MIN (60-); GLUCOSE 118 mg/dL (74-118); LIPASE 26 U/L (8-78); POTASSIUM 3.5 mmol/L (3.5-5.1); SODIUM 138 mmol/L (136-145)
[2019-11-26 06:27] LABS: BUN/CREATININE RATIO 8 (6-25)
[2019-11-26] MEDS: TRAMADOL HCL 50 MG TAB PO PRN ×2 (08:01→13:42)
[2019-11-26] MEDS: LAMOTRIGINE 100 MG TAB PO SCH ×2 (08:02→16:20)
[2019-11-26] MEDS: FOLIC ACID 1 MG TAB PO SCH (08:02)
[2019-11-26] MEDS: PANTOPRAZOLE 40 MG 10ML VIAL IV SCH ×2 (08:03→16:20)
[2019-11-26] MEDS: THIAMINE HCL 100 MG TAB PO SCH (08:03)
[2019-11-26] MEDS: FLUOXETINE HCL 20 MG CAP PO SCH (08:03)
[2019-11-26 08:13] VITALS: BP 126/71
[2019-11-26 08:23] VITALS: BP 126/71
[2019-11-26] MEDS: SODIUM CHLORIDE 0.45% 1,000 ML IV SCH (11:34)
[2019-11-26 12:13] VITALS: BP 115/74
[2019-11-26 20:00] VITALS: BP 134/86
--- NOTE | 2019-11-26 20:00 | Discharge Summary ---
PCP: No PCP. CONSULTING PHYSICIAN: Dr. Eugene Cotto. CHIEF COMPLAINT: Abdominal pain, nausea, and vomiting. HISTORY OF PRESENT ILLNESS: The patient is a 34-year-old female with past medical history of seizure disorder, who got admitted via the emergency department with complaints of epigastric pain, nausea, vomiting, diarrhea, and dizziness for the past 2 days prior to arrival. The patient reported that she started vomiting blood at home. The patient has a history of alcohol abuse. She has been drinking vodka at home. PAST MEDICAL HISTORY: Seizure disorders, alcoholism, hypoglycemia, ovarian cyst. PAST SURGICAL HISTORY: D and C x1. FAMILY HISTORY: Noncontributory. SOCIAL HISTORY: Alcohol abuse. ALLERGIES: PENICILLIN. ADMITTING DIAGNOSES: 1. Abdominal pain, nausea, vomiting. 2. Alcohol abuse. 3. Elevated blood pressure. 4. Pain pancreatitis. DISCHARGE DIAGNOSES: 1. Pancreatitis secondary to alcohol abuse. 2. Alcohol abuse. 3. Seizure disorder. HOSPITAL COURSE: Today, on the day of discharge; temperature 98.2, heart rate 75, respirations 18, blood pressure 115/74, oxygen saturation 99%. Sodium 138, potassium 3.5, chloride 106, CO2 of 22, BUN less than 5, creatinine 0.63, estimated GFR greater than 60, glucose 118. Fingerstick blood glucose level 94, calcium 8, total bilirubin 1.1, AST 68, ALT 44, alkaline phosphatase 168, highest total bilirubin was 1.3, ammonia level 67, total protein 6.5, albumin 3.7, lipase 26 (8). Her alcohol level was 90.8 on admission. UDS positive for benzodiazepines. Coronavirus PCR was negative. Hepatitis panel still pending. No imaging results this hospitalization. Her general physical exam on discharge within normal limits. Per the nurse, the patient had milk of magnesia early this morning around 03:45 in the morning due to complaints of constipation and had diarrhea after that. She denies any current abdominal pain. She has not had any nausea medications in the last 48 hours. She is tolerating a regular diet well, just has poor appetite. She currently has half-normal saline infusing at 75 mL an hour. She does not have a primary care doctor, thus will need to establish and follow up with a PCP in 1 to 2 weeks. She states she needs to renew her gold card. Continue regular diet. Follow up with Dr. Cotto as directed. The patient to call and make an appointment. Dictated by Ric Mederos, [employer] MD ROSY Vicente/JOSHUA /[id number]
--- NOTE | 2019-11-26 20:45 | NUR ---
Patient given new prescriptions (3) for medications and discharge instructions. Patient verbalized understanding. IV removed from left arm with tip intact. Patient transported with personal belongings to private auto via W/C. Patient in stable condition.
== END 2019-11-26 21:26 | disposition home or self-care (01) | DRG 440 ==
LOC: ER 20:30 → ERHOLD 23:08 → OBSVTOIN 23:08 → MED/SURG 11-23 01:50 → MED/SURG2 11-26 13:13
PROVIDERS: ADMIT Internal Medicine; ATTEND Internal Medicine
DX: K85.20 Alcohol induced acute pancreatitis without necrosis or infection (principal); F10.20 Alcohol dependence, uncomplicated; G40.909 Epilepsy, unspecified, not intractable, without status epilepticus; Z11.59 Encounter for screening for other viral diseases; R03.0 Elevated blood-pressure reading, without diagnosis of hypertension
CPT/HCPCS: 36415; 80048; 80053; 80307; 80320; 81001; 81025; 82140; 82150; 82948; 83690; 85025; 85610; 85730; 93005; 96361; 96374; 96375; 99284; J1885; J1990; J2060; J2270; J2405; J2765; J3411; J3480; J7030; U0002

== ENCOUNTER 2020-12-23 16:16 | Emergency (ER) | payer OTHER ==
[~2020-12-23] VITALS: Ht 157.5 cm; Wt 57.6 kg
[~2020-12-23 16:16] MED LIST changes: +PANTOPRAZOLE SO40 MG PO; +REGLAN10 MG PO; +ZOFRAN4 MG PO
[2020-12-23] MEDS ORDERED: SODIUM CHLORIDE 0.9% 1000ML 1,000 ML IV STA (16:24)
[2020-12-23] MEDS ORDERED: ONDANSETRON HCL INJ 2MG/ML 2ML 2 MG/ML VIAL IV STA (16:24)
[2020-12-23 16:38] LABS: BASOPHILS # (AUTO) 0.1 (0.0-0.1); BASOPHILS % 0.5 % (0.0-1.0); EOSINOPHILS # (AUTO) 0.2 (0.0-0.4); EOSINOPHILS % 1.9 % (0.0-6.0); HEMATOCRIT 40.9 % (34.2-44.1); HEMOGLOBIN 13.2 g/dL (12.0-16.0); LYMPHOCYTES # (AUTO) 1.9 (1.0-3.2); LYMPHOCYTES % 18.5 % (18.0-39.1); MEAN CORPUSCULAR HGB CONC 32.3 g/dL (31-35); MONOCYTES # (AUTO) 0.6 (0.2-0.8); MONOCYTES % 6.2 % (4.4-11.3); NEUTROPHILS # (AUTO) 7.3 (2.1-6.9); NEUTROPHILS % 72.6 % (38.7-80.0); PLATELET COUNT 267 x10e3/uL (140-360); RED CELL DISTRIBUTION WIDTH 12.1 % (11.7-14.4)
[2020-12-23 16:55] LABS: ALBUMIN 4.1 g/dL (3.5-5.0); ALBUMIN/GLOBULIN RATIO 1.2 (0.8-2.0); ANION GAP 14.1 mmol/L (8-16); CREATININE, SERUM 0.67 mg/dL (0.57-1.11); POTASSIUM 4.1 mmol/L (3.5-5.1)
[2020-12-23] MEDS ORDERED: Morphine 2mg Syringe 2 MG/ML SYR IV PRN (17:00)
[2020-12-23] MEDS ORDERED: ACETAMINOPHEN/CODEINE 300MG - 30MG TAB PO ONE (17:45)
== END 2020-12-23 18:38 | disposition home or self-care (01) ==
LOC: ER 16:30
DX: O03.9 Complete or unspecified spontaneous abortion without complication (principal); G40.909 Epilepsy, unspecified, not intractable, without status epilepticus; F41.9 Anxiety disorder, unspecified
CPT/HCPCS: 36415; 80053; 85025; 99284; J2270; J2405; J7030

== ENCOUNTER 2021-08-08 16:03 | Emergency (ER) | payer OTHER ==
[~2021-08-08] VITALS: Ht 160 cm; Wt 70.8 kg
[2021-08-08 16:36] LABS: BASOPHILS # (AUTO) 0.1 (0.0-0.1); BASOPHILS % 0.6 % (0.0-1.0); EOSINOPHILS # (AUTO) 0.1 (0.0-0.4); EOSINOPHILS % 1.6 % (0.0-6.0); HEMATOCRIT 40.3 % (34.2-44.1); HEMOGLOBIN 13.1 g/dL (12.0-16.0); LYMPHOCYTES # (AUTO) 2.6 (1.0-3.2); MEAN CORPUSCULAR HEMOGLOBIN 29.9 pg (28-32); MEAN CORPUSCULAR HGB CONC 32.5 g/dL (31-35); MONOCYTES # (AUTO) 0.5 (0.2-0.8); MONOCYTES % 5.4 % (4.4-11.3); NEUTROPHILS # (AUTO) 5.1 (2.1-6.9); NEUTROPHILS % 61.2 % (38.7-80.0); PLATELET COUNT 300 x10e3/uL (140-360); RED BLOOD COUNT 4.38 x10e6/uL (3.6-5.1); RED CELL DISTRIBUTION WIDTH 12.1 % (11.7-14.4)
[2021-08-08 16:56] LABS: ALBUMIN 3.8 g/dL (3.5-5.0); ANION GAP 15.4 mmol/L (8-16); CALCIUM 8.6 mg/dL (8.4-10.2); CREATININE, SERUM 0.62 mg/dL (0.57-1.11); POTASSIUM 5.4 mmol/L (3.5-5.1)
== END 2021-08-08 19:26 | disposition home or self-care (01) ==
LOC: ER 17:04
DX: O03.9 Complete or unspecified spontaneous abortion without complication (principal)
CPT/HCPCS: 36415; 76801; 76817; 80053; 84702; 85025; 86900; 99283

== ENCOUNTER 2021-08-11 19:43 | Emergency (ER) | payer OTHER ==
[~2021-08-11] VITALS: Ht 160 cm; Wt 70.8 kg
[2021-08-11] MEDS ORDERED: MULTIVITAMINS- 12 INJECTION 10 ML, FOLIC ACID MDV 1 MG, THIAMINE HCL INJ 100 MG in SODI... IV ONE (20:00)
[2021-08-11] MEDS ORDERED: LORAZEPAM INJ 2 MG/ML VIAL IV ONE (20:05)
[2021-08-11] MEDS ORDERED: LAMOTRIGINE 100 MG TAB PO ONE (20:15)
[2021-08-11 20:21] LABS: BASOPHILS # (AUTO) 0.1 (0.0-0.1); BASOPHILS % 0.6 % (0.0-1.0); EOSINOPHILS % 0.5 % (0.0-6.0); HEMATOCRIT 38.9 % (34.2-44.1); LYMPHOCYTES # (AUTO) 2.8 (1.0-3.2); MEAN CORPUSCULAR HEMOGLOBIN 29.9 pg (28-32); MEAN CORPUSCULAR HGB CONC 33.4 g/dL (31-35); MEAN CORPUSCULAR VOLUME 89.4 fL (81-99); MONOCYTES # (AUTO) 0.4 (0.2-0.8); NEUTROPHILS # (AUTO) 5.4 (2.1-6.9); NEUTROPHILS % 62.6 % (38.7-80.0); PLATELET COUNT 331 x10e3/uL (140-360); RED BLOOD COUNT 4.35 x10e6/uL (3.6-5.1); RED CELL DISTRIBUTION WIDTH 12.3 % (11.7-14.4)
[2021-08-11 20:41] LABS: AMPHETAMINES SCREEN,URINE NEGATIVE (NEGATIVE); BENZODIAZEPINES SCREEN,URINE NEGATIVE (NEGATIVE); PHENCYCLIDINE SCREEN,URINE NEGATIVE (NEGATIVE)
[2021-08-11 20:42] LABS: ALANINE AMINOTRANSFERASE 19 IU/L (0-55); ALBUMIN 3.7 g/dL (3.5-5.0); ALKALINE PHOSPHATASE 81 IU/L (40-150); ANION GAP 17.7 mmol/L (8-16); BLOOD UREA NITROGEN 5 mg/dL (7-26); BUN/CREATININE RATIO 9 (6-25); CALCIUM 8.2 mg/dL (8.4-10.2); CARBON DIOXIDE 21 mmol/L (22-29); CHLORIDE 107 mmol/L (98-107); CREATINE KINASE 84 IU/L (29-168); CREATININE, SERUM 0.58 mg/dL (0.57-1.11); GLUCOSE 100 mg/dL (74-118); POTASSIUM 3.7 mmol/L (3.5-5.1); SODIUM 142 mmol/L (136-145)
== END 2021-08-11 23:45 | disposition home or self-care (01) ==
LOC: ER 20:05
DX: G40.909 Epilepsy, unspecified, not intractable, without status epilepticus (principal); F10.129 Alcohol abuse with intoxication, unspecified; F41.9 Anxiety disorder, unspecified; M79.7 Fibromyalgia
CPT/HCPCS: 36415; 80053; 80307; 80320; 80329; 82550; 82553; 84484; 85025; 93005; 99284; J3411; J7030

== ENCOUNTER 2021-08-13 00:10 | Emergency (ER) | payer OTHER ==
[~2021-08-13] VITALS: Ht 160 cm; Wt 70.8 kg
[2021-08-13 00:30] LABS: BASOPHILS % 0.7 % (0.0-1.0); HEMATOCRIT 38.7 % (34.2-44.1); HEMOGLOBIN 12.8 g/dL (12.0-16.0); LYMPHOCYTES # (AUTO) 2.8 (1.0-3.2); MEAN CORPUSCULAR HEMOGLOBIN 29.4 pg (28-32); MEAN CORPUSCULAR HGB CONC 33.1 g/dL (31-35); MEAN CORPUSCULAR VOLUME 88.8 fL (81-99); MONOCYTES # (AUTO) 0.3 (0.2-0.8); MONOCYTES % 4.8 % (4.4-11.3); NEUTROPHILS # (AUTO) 2.9 (2.1-6.9); NEUTROPHILS % 48.2 % (38.7-80.0); PLATELET COUNT 295 x10e3/uL (140-360); RED BLOOD COUNT 4.36 x10e6/uL (3.6-5.1); RED CELL DISTRIBUTION WIDTH 12.3 % (11.7-14.4)
[2021-08-13 00:49] LABS: ALANINE AMINOTRANSFERASE 21 IU/L (0-55); ALBUMIN/GLOBULIN RATIO 1.2 (0.8-2.0); ALKALINE PHOSPHATASE 93 IU/L (40-150); ANION GAP 16.3 mmol/L (8-16); BLOOD UREA NITROGEN < 5 mg/dL (7-26); CALCIUM 8.5 mg/dL (8.4-10.2); CARBON DIOXIDE 24 mmol/L (22-29); CHLORIDE 111 mmol/L (98-107); CREATININE, SERUM 0.64 mg/dL (0.57-1.11); GLUCOSE 98 mg/dL (74-118); POTASSIUM 3.3 mmol/L (3.5-5.1); SODIUM 148 mmol/L (136-145)
[2021-08-13 00:50] LABS: BUN/CREATININE RATIO 8 (6-25)
[2021-08-13 00:51] LABS: SALICYLATE < 5.0 mg/dL (0-30)
[2021-08-13 00:59] LABS: HCG,QUANTITATIVE 1129.36 mIU/mL (0-10)
[2021-08-13] MEDS ORDERED: LACTATED RINGER'S 1,000 ML INJ ONE (01:30)
== END 2021-08-13 05:24 | disposition home or self-care (01) ==
LOC: ER 00:17
DX: R56.9 Unspecified convulsions (principal); F10.129 Alcohol abuse with intoxication, unspecified; M79.7 Fibromyalgia; F41.9 Anxiety disorder, unspecified
CPT/HCPCS: 36415; 70450; 72125; 80053; 80320; 80329 ×2; 84702; 85025; 99283; J7121

== ENCOUNTER 2021-08-13 17:04 | Emergency (ER) | payer OTHER ==
[~2021-08-13] VITALS: Ht 160 cm; Wt 70.8 kg
[2021-08-13 17:30] LABS: BASOPHILS % 0.6 % (0.0-1.0); EOSINOPHILS % 0.2 % (0.0-6.0); HEMATOCRIT 39.8 % (34.2-44.1); HEMOGLOBIN 13.2 g/dL (12.0-16.0); LYMPHOCYTES % 46.9 % (18.0-39.1); MEAN CORPUSCULAR HEMOGLOBIN 29.6 pg (28-32); MEAN CORPUSCULAR HGB CONC 33.2 g/dL (31-35); MEAN CORPUSCULAR VOLUME 89.2 fL (81-99); MONOCYTES # (AUTO) 0.2 (0.2-0.8); MONOCYTES % 3.3 % (4.4-11.3); NEUTROPHILS # (AUTO) 3.1 (2.1-6.9); NEUTROPHILS % 48.7 % (38.7-80.0); PLATELET COUNT 344 x10e3/uL (140-360); RED BLOOD COUNT 4.46 x10e6/uL (3.6-5.1); RED CELL DISTRIBUTION WIDTH 12.5 % (11.7-14.4)
[2021-08-13 17:47] LABS: SALICYLATE < 5.0 mg/dL (0-30)
[2021-08-13 17:48] LABS: ALANINE AMINOTRANSFERASE 22 IU/L (0-55); ALBUMIN/GLOBULIN RATIO 1.2 (0.8-2.0); ALKALINE PHOSPHATASE 91 IU/L (40-150); ANION GAP 20.3 mmol/L (8-16); BLOOD UREA NITROGEN < 5 mg/dL (7-26); BUN/CREATININE RATIO 8 (6-25); CALCIUM 8.2 mg/dL (8.4-10.2); CARBON DIOXIDE 21 mmol/L (22-29); CHLORIDE 111 mmol/L (98-107); CREATININE, SERUM 0.64 mg/dL (0.57-1.11); GLUCOSE 84 mg/dL (74-118); POTASSIUM 3.3 mmol/L (3.5-5.1); SODIUM 149 mmol/L (136-145)
[2021-08-13] MEDS ORDERED: ONDANSETRON HCL INJ 2MG/ML 2ML 2 MG/ML VIAL IV STA (17:55)
[2021-08-13 18:59] LABS: CLARITY,URINE HAZY (CLEAR)
[2021-08-13 19:00] LABS: COLOR,URINE AMBER (YELLOW); KETONES,URINE NEGATIVE (NEGATIVE); LEUKOCYTE ESTERASE ,URINE TRACE (NEGATIVE); NITRITE,URINE NEGATIVE (NEGATIVE); PROTEIN,URINE DIPSTICK 1+ (NEGATIVE); URINE UROBILINOGEN 0.2 mg/dL (0.2 - 1)
[2021-08-13 19:04] LABS: AMPHETAMINES SCREEN,URINE NEGATIVE (NEGATIVE); BENZODIAZEPINES SCREEN,URINE NEGATIVE (NEGATIVE); PHENCYCLIDINE SCREEN,URINE NEGATIVE (NEGATIVE)
[2021-08-13 19:10] LABS: BACTERIA,URINE FEW /HPF; RBC,URINE >50 /HPF (0-5)
[2021-08-13] MEDS ORDERED: LACTATED RINGER'S 1,000 ML INJ ONE (19:15)
== END 2021-08-13 19:35 | disposition home or self-care (01) ==
LOC: ER 17:27
DX: F10.129 Alcohol abuse with intoxication, unspecified (principal); V49.9XXA Car occupant (driver) (passenger) injured in unspecified traffic accident, initial encounter; Y92.488 Other paved roadways as the place of occurrence of the external cause; G40.909 Epilepsy, unspecified, not intractable, without status epilepticus; F41.9 Anxiety disorder, unspecified; M79.7 Fibromyalgia; Z20.822 Contact with and (suspected) exposure to COVID-19
CPT/HCPCS: 36415; 70450; 71045; 72125; 80053; 80307; 80320; 80329 ×2; 81001; 84484; 85025; 93005; 99284; J2405; J7121; U0002

== ENCOUNTER 2022-03-31 11:43 | Emergency (ER) | payer OTHER ==
[~2022-03-31] VITALS: Ht 160 cm; Wt 74.5 kg
[2022-03-31] MEDS ORDERED: ONDANSETRON HCL INJ 2MG/ML 2ML 2 MG/ML VIAL IV ONE (12:11)
[2022-03-31] MEDS ORDERED: FAMOTIDINE 20 MG/2 ML VIAL IV ONE ×2 (12:11→13:03)
[2022-03-31] MEDS ORDERED: SODIUM CHLORIDE 0.9% 1000ML 1,000 ML IV STA (12:11)
[2022-03-31] MEDS ORDERED: DIAZEPAM INJ 5 MG/ML 2 ML IV ONE (12:15)
[2022-03-31] MEDS ORDERED: DIAZEPAM INJ 5 MG/ML 2 ML ONE ×2 (12:42→13:12)
[2022-03-31] MEDS ORDERED: SODIUM CHLORIDE 0.9% 1000ML 1,000 ML ONE (12:42)
[2022-03-31] MEDS ORDERED: ONDANSETRON HCL INJ 2MG/ML 2ML 2 MG/ML VIAL ONE (13:03)
[2022-03-31] MEDS ORDERED: SODIUM CHLORIDE 0.9% 100 ML ONE (13:18)
[2022-03-31] MEDS ORDERED: FOSPHENYTOIN 50 MG/ML 10ML VIAL ONE (13:19)
[2022-03-31] MEDS ORDERED: HYDROCODON-ACE1 EAC8 (14:24)
[2022-03-31] MEDS ORDERED: ATIVAN1 MG PO (14:24)
[2022-03-31] MEDS ORDERED: AMMONIA AROMATIC INHAL 0.33 ML AMP INH ONE (14:30)
== END 2022-03-31 16:00 | disposition other institution (70) ==
LOC: FSED 12:11
DX: G40.409 Other generalized epilepsy and epileptic syndromes, not intractable, without status epilepticus (principal); F41.9 Anxiety disorder, unspecified; M79.7 Fibromyalgia; Z20.822 Contact with and (suspected) exposure to COVID-19; F17.210 Nicotine dependence, cigarettes, uncomplicated
CPT/HCPCS: 0223U; 36415; 80053; 80307; 81003; 81025; 82553; 84484; 85025; 93005; 96374; 96375; 96376; 99284; J2405; J3360; J7030; J7050; Q2009